=== PATIENT | male | born 1960 | race Two or more races ===

== ENCOUNTER 2024-03-11 15:33 | Inpatient (IN) | payer MEDICAID, OTHER ==
[~2024-03-11] VITALS: Ht 185.4 cm; Wt 99.2 kg
[~2024-03-11 15:33] MED LIST: TERB250T92 PO; URSO300C2 PO
[2024-03-11 16:56] LABS: Basophils # (auto) 0 10 ^3/uL (0-0.2); Basophils % (auto) 0.3 % (0.0-2.0); Eosinophils # (auto) 0 10 ^3/uL (0-0.8); Eosinophils % (auto) 0.5 % (0.0-7.0); Hematocrit 46.1 % (41.0-53.0); Hemoglobin 14.8 g/dL (13.5-17.5); Lymphocytes # (auto) 1.3 10 ^3/uL (0.4-5.4); Lymphocytes % (auto) 18.1 % (10.0-50.0); Mean Corpuscular Hemoglobin 25.9 pg (28.0-32.0); Mean Corpuscular Hgb Conc. 32.1 g/dL (32.0-36.0); Mean Corpuscular Volume 80.5 fL (80.0-100.0); Monocytes # (auto) 0.6 10 ^3/uL (0-1.3); Monocytes % (auto) 8.2 % (0.0-12.0); Neutrophils # (auto) 5.2 10 ^3/uL (1.6-8.6); Neutrophils % (auto) 72.9 % (37.0-80.0); Nucleated Red Blood Cells % 0.4 %; Platelet Count (auto) 181 10^3/uL (140-450); Red Blood Cells 5.72 10^6/uL (4.5-5.90); Red Cell Distribution Width 20.2 % (11.8-14.3); White Blood Cell 7.1 10^3/uL (4.4-10.8)
[2024-03-11 17:07] LABS: Chloride 101 mmol/L (98-107); Potassium 4.2 mmol/L (3.5-5.1); Sodium 136 mmol/L (136-145)
[2024-03-11 17:08] LABS: Anion Gap 7 (5-15); Carbon Dioxide 28 mmol/L (20-31)
[2024-03-11 17:09] LABS: Calcium 9.5 mg/dL (8.7-10.4)
[2024-03-11 17:13] LABS: BUN/Creatinine Ratio 28.3 (10.0-20.0); Blood Urea Nitrogen 32 mg/dL (9-23); Glucose 93 mg/dL (74-106)
[2024-03-11 19:43] VITALS: PULSE 104; RESP 22; O2SAT 93
[2024-03-11] MEDS: FUROSEMIDE 40 MG/4 ML VIAL IV ONE (20:31)
[2024-03-11] MEDS: PANTOPRAZOLE 40 MG/10 ML VIAL INJ IV SCH (21:40)
[2024-03-11] MEDS ORDERED: ONDANSETRON HCL 4 MG/2 ML VIAL IV PRN (22:00)
[2024-03-11] MEDS ORDERED: MORPHINE SULFATE INJ 2 MG/ml SYRG IV PRN (22:00)
[2024-03-11] MEDS ORDERED: DOCUSATE SOD 100 MG CAP PO PRN (22:00)
[2024-03-11] MEDS ORDERED: NITROGLYCERIN 0.4 MG SL TAB SL PRN (22:00)
[2024-03-11] MEDS ORDERED: HYDROmorphone HCL 2 MG/ML VL/or syr IV PRN (22:00)
[2024-03-11] MEDS ORDERED: HYDROcodone-ACET 5/325MG TAB PO PRN (22:00)
[2024-03-11] MEDS: SODIUM CHLOR 0.9% PF (SALINE LOCK) 10ML VIAL/SYR IV SCH (22:03)
[2024-03-11 22:43] LABS: Urine Bacteria FEW /hpf (None Seen); Urine Blood Negative /uL (Negative); Urine Clarity Turbid (Clear); Urine Color Yellow (Yellow); Urine Hyaline Cast MOD /lpf (0 - 2); Urine Protein, UAD Negative (Negative); Urine Specific Gravity 1.009 (1.001-1.035); Urine Urobilinogen 2 mg/dL (Negative); Urine WBC 6 /hpf (0 - 3)
[2024-03-11 23:56] VITALS: BP 130/77; PULSE 112; RESP 18; TEMP 97.9; O2SAT 97
[2024-03-12] VITALS (8 sets, daily range): BP systolic 98–126; BP diastolic 58–72; PULSE 76–114; RESP 18–19; TEMP 96.4–98.7; O2SAT 96–99
[2024-03-12] MEDS ORDERED: LOSA-534 PO (02:00)
[2024-03-12] MEDS ORDERED: FURO20TA3 PO (02:00)
[2024-03-12] MEDS ORDERED: TERB1CRE10 EX (02:00)
[2024-03-12] MEDS: FUROSEMIDE 40 MG/4 ML VIAL IV SCH (06:30)
[2024-03-12 07:25] LABS: Basophils # (auto) 0.1 10 ^3/uL (0-0.2); Basophils % (auto) 0.8 % (0.0-2.0); Eosinophils # (auto) 0.1 10 ^3/uL (0-0.8); Eosinophils % (auto) 1.5 % (0.0-7.0); Hematocrit 44.8 % (41.0-53.0); Hemoglobin 14.7 g/dL (13.5-17.5); Lymphocytes # (auto) 1.3 10 ^3/uL (0.4-5.4); Lymphocytes % (auto) 16.4 % (10.0-50.0); Mean Corpuscular Hemoglobin 26.6 pg (28.0-32.0); Mean Corpuscular Hgb Conc. 32.9 g/dL (32.0-36.0); Mean Corpuscular Volume 80.8 fL (80.0-100.0); Monocytes # (auto) 0.5 10 ^3/uL (0-1.3); Monocytes % (auto) 7.1 % (0.0-12.0); Neutrophils # (auto) 5.7 10 ^3/uL (1.6-8.6); Neutrophils % (auto) 74.2 % (37.0-80.0); Nucleated Red Blood Cells % 0.4 %; Platelet Count (auto) 223 10^3/uL (140-450); Red Blood Cells 5.55 10^6/uL (4.5-5.90); White Blood Cell 7.7 10^3/uL (4.4-10.8)
[2024-03-12 07:28] LABS: Red Cell Distribution Width 20.4 % (11.8-14.3)
[2024-03-12 08:18] LABS: INR 1.41 (0.9-1.15); Partial Thromboplastin Time 28.1 SEC (24.5-34.5); Prothrombin Time 14.6 sec (9.3-11.8)
[2024-03-12 08:52] LABS: Anion Gap 8 (5-15)
[2024-03-12 08:58] LABS: BUN/Creatinine Ratio 26.3 (10.0-20.0)
[2024-03-12 09:04] LABS: Blood Urea Nitrogen 30 mg/dL (9-23); Carbon Dioxide 28 mmol/L (20-31); Chloride 102 mmol/L (98-107); Glucose 98 mg/dL (74-106); Potassium 3.7 mmol/L (3.5-5.1); Sodium 138 mmol/L (136-145)
[2024-03-12 09:05] LABS: Alanine Aminotransferase 54 U/L (7-40); Albumin 3.2 g/dL (3.2-4.8); Alkaline Phosphatase 89 U/L (46-116); Aspartate Aminotransferase 47 U/L (13-40); Bilirubin, Total 4.1 mg/dL (0.2-1.0); Calcium 9.4 mg/dL (8.7-10.4); Total Protein 6.1 g/dL (5.7-8.2)
[2024-03-12 09:15] LABS: Magnesium 2.1 mg/dL (1.6-2.6)
[2024-03-12 09:16] LABS: Phosphorus 4.1 mg/dL (2.4-5.1)
[2024-03-12] MEDS: FUROSEMIDE INJECTION 100 MG in D5W 5% 100 ML IV SCH (09:45)
[2024-03-12] MEDS: POTASSIUM CHL 20 Meq TABLET PO SCH (10:22)
[2024-03-12] MEDS: DOBUTamine 1000MCG/ML 250 ML IV SCH (10:25)
[2024-03-12 13:12] LABS: Body Fluid Polymorphonuclear 10 % (0-25); Body Fluid Red Blood Cells 669 CUMM (0-2000); Body Fluid White Blood Cells 1034 CUMM (0-200)
[2024-03-12 15:42] LABS: Lactic Acid w/Reflex 2.7 mmol/L (0.4-2.0)
[2024-03-12] MEDS: NICOTINE 7MG/24HR TOPICAL PATCH TD ONE (17:35)
[2024-03-12] MEDS: SODIUM CHLORIDE 0.9% 1,000 ML IV SCH (20:34)
[2024-03-12] MEDS: SODIUM CHLORIDE 0.9% 500 ML IV ONE (22:12)
[2024-03-12 22:59] LABS: Lactic Acid w/Reflex 2.5 mmol/L (0.4-2.0)
[2024-03-13] VITALS (8 sets, daily range): BP systolic 91–118; BP diastolic 51–77; PULSE 73–109; RESP 18–70; TEMP 96.6–97.6; O2SAT 92–98
[2024-03-13 06:48] LABS: Alanine Aminotransferase 47 U/L (7-40); Alkaline Phosphatase 84 U/L (46-116); Anion Gap 8 (5-15); Aspartate Aminotransferase 40 U/L (13-40); BUN/Creatinine Ratio 24.2 (10.0-20.0); Bilirubin, Total 3.4 mg/dL (0.2-1.0); Blood Urea Nitrogen 23 mg/dL (9-23); Calcium 9.2 mg/dL (8.7-10.4); Carbon Dioxide 31 mmol/L (20-31); Chloride 98 mmol/L (98-107); Glucose 102 mg/dL (74-106); Magnesium 1.8 mg/dL (1.6-2.6); Phosphorus 2.7 mg/dL (2.4-5.1); Sodium 137 mmol/L (136-145); Total Protein 5.8 g/dL (5.7-8.2)
[2024-03-13 06:51] LABS: Lactic Acid w/Reflex 2.6 mmol/L (0.4-2.0)
[2024-03-13 07:00] LABS: Basophils # (auto) 0 10 ^3/uL (0-0.2); Eosinophils # (auto) 0.1 10 ^3/uL (0-0.8); Hematocrit 42.3 % (41.0-53.0); Monocytes # (auto) 0.4 10 ^3/uL (0-1.3)
[2024-03-13 07:03] LABS: Basophils % (auto) 0.1 % (0.0-2.0); Eosinophils % (auto) 1.1 % (0.0-7.0); Lymphocytes # (auto) 0.7 10 ^3/uL (0.4-5.4); Lymphocytes % (auto) 9.2 % (10.0-50.0); Mean Corpuscular Hemoglobin 26.4 pg (28.0-32.0); Monocytes % (auto) 5.2 % (0.0-12.0); Neutrophils # (auto) 6.8 10 ^3/uL (1.6-8.6); Neutrophils % (auto) 84.4 % (37.0-80.0); Nucleated Red Blood Cells % 0.1 %; Platelet Count (auto) 144 10^3/uL (140-450); Red Blood Cells 5.28 10^6/uL (4.5-5.90); Red Cell Distribution Width 20.3 % (11.8-14.3); White Blood Cell 8.1 10^3/uL (4.4-10.8)
[2024-03-13 09:24] LABS: Anisocytosis Slight; Platelet Estimate Adequate
[2024-03-13] MEDS: FUROSEMIDE INJECTION 100 MG in D5W 5% 100 ML IV SCH (09:29)
[2024-03-13] MEDS: NICOTINE 7MG/24HR TOPICAL PATCH TD SCH (09:30)
[2024-03-13] MEDS: POTASSIUM CHL 20MEQ/100ML 100 ML IV SCH (10:30)
[2024-03-13 13:07] LABS: Protein, Body Fluid 1.9 g/dL (.)
[2024-03-13] MEDS ORDERED: POTASSIUM CHL 20MEQ/100ML 100 ML IV SCH (13:45)
[2024-03-13 15:01] LABS: Lactic Acid w/Reflex 2.7 mmol/L (0.4-2.0)
[2024-03-13] MEDS: POTASSIUM CHLORIDE 80 MEQ, LIDOCAINE 1% (LOCAL ANESTH.) 6 ML in SODIUM CHL 0.9% 500 ML IV ONE (17:34)
[2024-03-14] VITALS (7 sets, daily range): BP systolic 110–133; BP diastolic 67–73; PULSE 104–135; RESP 15–20; TEMP 97.3–100.1; O2SAT 90–98
[2024-03-14 05:20] LABS: Basophils # (auto) 0 10 ^3/uL (0-0.2); Basophils % (auto) 0.4 % (0.0-2.0); Eosinophils # (auto) 0.1 10 ^3/uL (0-0.8); Eosinophils % (auto) 0.6 % (0.0-7.0); Hematocrit 43.9 % (41.0-53.0); Hemoglobin 14.7 g/dL (13.5-17.5); Lymphocytes # (auto) 0.9 10 ^3/uL (0.4-5.4); Lymphocytes % (auto) 10.4 % (10.0-50.0); Mean Corpuscular Hemoglobin 26.6 pg (28.0-32.0); Mean Corpuscular Hgb Conc. 33.4 g/dL (32.0-36.0); Mean Corpuscular Volume 79.7 fL (80.0-100.0); Monocytes # (auto) 0.6 10 ^3/uL (0-1.3); Monocytes % (auto) 6.4 % (0.0-12.0); Neutrophils # (auto) 7.2 10 ^3/uL (1.6-8.6); Neutrophils % (auto) 82.2 % (37.0-80.0); Nucleated Red Blood Cells % 0.2 %; Platelet Count (auto) 152 10^3/uL (140-450); Red Blood Cells 5.51 10^6/uL (4.5-5.90); Red Cell Distribution Width 19.8 % (11.8-14.3); White Blood Cell 8.7 10^3/uL (4.4-10.8)
[2024-03-14 05:34] LABS: Alanine Aminotransferase 49 U/L (7-40); Albumin 3.1 g/dL (3.2-4.8); Alkaline Phosphatase 87 U/L (46-116); Anion Gap 9 (5-15); Aspartate Aminotransferase 42 U/L (13-40); BUN/Creatinine Ratio 26.8 (10.0-20.0); Blood Urea Nitrogen 22 mg/dL (9-23); Calcium 9.1 mg/dL (8.7-10.4); Carbon Dioxide 32 mmol/L (20-31); Chloride 97 mmol/L (98-107); Glucose 105 mg/dL (74-106); Magnesium 1.5 mg/dL (1.6-2.6); Potassium 3.6 mmol/L (3.5-5.1); Sodium 138 mmol/L (136-145)
[2024-03-14 05:35] LABS: Bilirubin, Total 3.9 mg/dL (0.2-1.0); Phosphorus 2.4 mg/dL (2.4-5.1); Total Protein 5.8 g/dL (5.7-8.2)
[2024-03-14 12:42] LABS: Lactic Acid w/Reflex 2.2 mmol/L (0.4-2.0)
[2024-03-14] MEDS: METOPROLOL TARTRATE 1MG/1ML-5ML VIAL IV ONE ×2 (14:15→15:15)
[2024-03-14] MEDS: FUROSEMIDE 40 MG/4 ML VIAL IV SCH (15:14)
[2024-03-14] MEDS: METOPROLOL SUCCINATE XL 50 MG TAB PO ONE (15:14)
[2024-03-14 16:11] LABS: Basophils # (auto) 0 10 ^3/uL (0-0.2); Basophils % (auto) 0.3 % (0.0-2.0); Eosinophils # (auto) 0 10 ^3/uL (0-0.8); Eosinophils % (auto) 0.3 % (0.0-7.0); Hematocrit 49.8 % (41.0-53.0); Hemoglobin 16.3 g/dL (13.5-17.5); Lymphocytes # (auto) 0.4 10 ^3/uL (0.4-5.4); Lymphocytes % (auto) 3.8 % (10.0-50.0); Mean Corpuscular Hemoglobin 26.2 pg (28.0-32.0); Mean Corpuscular Hgb Conc. 32.6 g/dL (32.0-36.0); Mean Corpuscular Volume 80.3 fL (80.0-100.0); Monocytes # (auto) 0.4 10 ^3/uL (0-1.3); Neutrophils % (auto) 91.6 % (37.0-80.0); Nucleated Red Blood Cells % 0.1 %; Platelet Count (auto) 169 10^3/uL (140-450); Red Blood Cells 6.21 10^6/uL (4.5-5.90); White Blood Cell 10.9 10^3/uL (4.4-10.8)
[2024-03-14 16:12] LABS: Red Cell Distribution Width 21.1 % (11.8-14.3)
[2024-03-14] MEDS: cefTRIAXone 1GM/50ML D5W 50 ML IV ONE (16:12)
[2024-03-14] MEDS: AZITHROMYCIN 500MG/ 250ML 250 ML IV ONE (16:12)
[2024-03-14 16:21] LABS: Alanine Aminotransferase 48 U/L (7-40); Albumin 3.4 g/dL (3.2-4.8); Alkaline Phosphatase 91 U/L (46-116); Anion Gap 6 (5-15); Aspartate Aminotransferase 42 U/L (13-40); Bilirubin, Total 4.4 mg/dL (0.2-1.0); Blood Urea Nitrogen 18 mg/dL (9-23); Calcium 9.2 mg/dL (8.7-10.4); Carbon Dioxide 37 mmol/L (20-31); Chloride 94 mmol/L (98-107); Glucose 91 mg/dL (74-106); Magnesium 1.6 mg/dL (1.6-2.6); Phosphorus 2.6 mg/dL (2.4-5.1); Potassium 3.6 mmol/L (3.5-5.1); Sodium 137 mmol/L (136-145); Total Protein 6.6 g/dL (5.7-8.2)
[2024-03-14] MEDS: DIGOXIN (250MCG/ML) 2 ML AMPULE IV ONE (17:55)
[2024-03-14] MEDS: DIGOXIN 0.125 MG TAB PO ONE (17:55)
[2024-03-14] MEDS: FUROSEMIDE INJECTION 100 MG in D5W 5% 100 ML IV SCH (17:56)
[2024-03-14] MEDS: METOPROLOL TARTRATE 25 MG TAB PO ONE (20:20)
[2024-03-14] MEDS: ACETAMINOPHEN 325 MG TAB PO PRN (20:45)
[2024-03-14] MEDS ORDERED: VANCOMYCIN PER PHARMACY 0 MG IV SCH (21:45)
[2024-03-14] MEDS: MEROPENEM 1GM IVPB 50 ML IV SCH (22:24)
[2024-03-14] MEDS: VANCOMYCIN 1GM/200ML PREMIX IV ONE (23:32)
[2024-03-15] MEDS ORDERED: cefTRIAXone 1GM/50ML D5W 50 ML IV SCH (09:00)
[2024-03-15] MEDS ORDERED: METOPROLOL SUCCINATE XL 50 MG TAB PO SCH ×2 (10:00)
[2024-03-15] MEDS ORDERED: AZITHROMYCIN 500MG/ 250ML 250 ML IV SCH (10:00)
[2024-03-15] MEDS ORDERED: DIGOXIN 0.125 MG TAB PO SCH (10:00)
== END 2024-03-15 01:00 | disposition left against medical advice (07) | DRG 194 ==
LOC: ER 15:53 → TELE 21:50 → TELE-WESTW 23:34
PROVIDERS: ADMIT Internal Medicine; ATTEND Student in an Organized Health Care Education/Training Program
PROC: 0W993ZZ Drainage of Right Pleural Cavity, Percutaneous Approach (ICD-10-PCS; principal; 2024-03-12)
DX: I11.0 Hypertensive heart disease with heart failure (principal); J96.21 Acute and chronic respiratory failure with hypoxia; R57.0 Cardiogenic shock; I21.A1 Myocardial infarction type 2; E87.20 Acidosis, unspecified; I48.91 Unspecified atrial fibrillation; I50.23 Acute on chronic systolic (congestive) heart failure; Z53.29 Procedure and treatment not carried out because of patient's decision for other reasons; E66.9 Obesity, unspecified; G47.33 Obstructive sleep apnea (adult) (pediatric); F17.210 Nicotine dependence, cigarettes, uncomplicated; D72.829 Elevated white blood cell count, unspecified; R74.01 Elevation of levels of liver transaminase levels; I49.3 Ventricular premature depolarization; Z86.73 Personal history of transient ischemic attack (TIA), and cerebral infarction without residual deficits; Z68.28 Body mass index [BMI] 28.0-28.9, adult
CPT/HCPCS: 32555; 36415; 71045; 71046; 76604; 76942; 80048; 80053; 80061; 81001; 82306; 82607; 83036; 83605; 83735; 83880; 83986; 84100; 84443; 84484; 85025; 85610; 85730; 87040; 87077; 87186; 87205; 89051; 93306; 99291; G0378; J2003; J2185; J2470; J3480; J7060

== ENCOUNTER 2024-03-15 12:11 | Inpatient (IN) | payer MEDICAID ==
[~2024-03-15] VITALS: Ht 185.4 cm; Wt 90.0 kg
[~2024-03-15 12:11] MED LIST changes: +FURO20TA3 PO; +LOSA-534 PO; +TERB1CRE10 EX
[2024-03-15] MEDS ORDERED: FUROSEMIDE 100 MG/10ML VIAL IV ONE (12:45)
--- NOTE | 2024-03-15 13:13 | ED.PDOC ---
HPI Comments This is a 63-year-old male who comes to the ED with chief complain of generalized weakness, shortness of breath, and edema. 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 Patient was hospitalized here just a couple days ago with diagnosis of cardiogenic shock due to CHF exacerbation, AFib with RVR. Patient stated he only feels generalized weakness, shortness of breath on exertion, denies any chest pain, dizziness, lightheadedness, abdominal pain, nausea, vomiting. He stated that he has been experiencing edema of the legs up to the abdomen since the last three months. Chief Complaint: Generalized weakness Time Seen by MD: 12:19 Primary Care Provider: [facility] Reviewed Notes: Nurses Notes Allergies: Coded Allergies: NO KNOWN ALLERGIES (Unverified , 03/11/24) Home Meds Reported Medications Furosemide (Furosemide) 20 Mg Tab, 1 TAB PO DAILY, #90 TAB 1 Refill 03/12/24 Terbinafine Hcl (Topical) (Lamisil At Athletes Foot) 1 % Cre, 1 % EX, CRE 03/12/24 Losartan Potassium (Losartan Potassium) 50 Mg Tab, 1 TAB PO DAILY, #30 TAB 5 Refills 03/12/24 Information Source: Patient, Relative (Child) Mode of Arrival: Wheelchair Severity: Mild Timing: Days Duration: Since onset Past Medical History PAST MEDICAL HISTORY: AFIB, CHF, Gallstones, HTN, TIA Surgical History: Denies all surgeries Family History Family History: Reviewed,noncontributory to illness, Family hx of DM Social History Smoker: Cigarettes, Less Than 1 Pack/Day Alcohol: Denies ETOH Use Drugs: Denies Drug Use Lives In: Home Constitutional: denies: chills, diaphoresis, fatigue, fever, malaise, sweats, weakness, others EENTM: denies: blurred vision, double vision, ear bleeding, ear discharge, ear drainage, ear pain, ear ringing, eye pain, eye redness, hearing loss, mouth pain, mouth swelling, nasal discharge, nose bleeding, nose congestion, nose pain, photophobia, tearing, throat pain, throat swelling, voice changes, others Respiratory: reports: orthopnea, shortness of breath, SOB with excertion; denies: cough, hemoptysis, SOB at rest, stridor, wheezing, others Cardiovascular: reports: palpitations; denies: chest pain, dizzy spells, natalia phoresis, Dyspnea on exertion, edema, irregular heart beat, left arm pain, lightheadedness, PND, syncope, others Gastrointestinal: denies: abdomen distended, abdominal pain, blood streaked bowels, constipated, diarrhea, dysphagia, difficulty swallowing, hematemesis, melena, nausea, poor appetite, poor fluid intake, rectal bleeding, rectal pain, vomiting, others Genitourinary: denies: burning, dysuria, flank pain, frequency, hematuria, incontinence, penile discharge, penile sore, pain, testicle pain, testicle swelling, urgency, others Neurological: denies: dizziness, fainting, headache, left sided numbness, left sided weakness, numbness, paresthesia, pre-existing deficit, right sided numbness, right sided weakness, seizure, speech problems, tingling, tremors, weakness, others Musculoskeletal: denies: back pain, gout, joint pain, joint swelling, muscle pain, muscle stiffness, neck pain, others Integumetry: denies: bruises, change in color, change in hair/nails, dryness, laceration, lesions, lumps, rash, wounds, others Allergic/Immunocompromised: denies: Difficulty Healing, Frequent Infections, Hives, Itching, others Hematologic/Lymphatic: denies: anemia, blood clots, easy bleeding, easy bruising, swollen glands, others Endocrine: denies: excessive hunger, excessive sweating, excessive thirst, excessive urination, flushing, intolerance to cold, intolerance to heat, unexplained weight gain, unexplained weight loss, others Psychiatric: denies: anxiety, bipolar disorder, depression, hopeless, panic disorder, schizophrenia, sleepless, suicidal, others Physical Exam General Appearance: No Apparent Distress HEENT: Normal ENT Inspection, Pharynx Normal, TMs Normal Neck: Full Range of Motion, Non-Tender, Normal, Normal Inspection Respiratory: Chest Non-Tender, Crackles, Decreased Breath Sounds, No Accessory Muscle Use, No Respiratory Distress Cardiovascular: Irregular, JVD, No JVD, No Murmur, No Gallop, Normal Peripheral Pulses Breast Exam: Deferred Gastrointestinal: No Organomegaly, Non Tender, No Pulsatile Mass, Normal Bowel Sounds, Soft Genitalia: Deferred Pelvic: Deferred Rectal: Deferred Extremities: No calf tenderness, Normal capillary refill, Normal inspection, Normal range of motion, Non-tender, Pedal edema, Swelling Neurologic: Alert, Normal Affect, Normal Mood Cerebellar Function: NOT DONE Reflexes: NOT DONE Skin: Normal Color, Warm Lymphatic: None Was a procedure done? Was a procedure done?: No CP Differential Dx Differential Diagnosis: A-fib, Electrolyte Disorder, Heart Failure, Hypoxia Differential Diagnosis: CHF, HTN Essential, HTN Accelerated X-Ray, Labs, Meds, VS Vital Signs Date Time Temp Pulse Resp B/P (MAP) Pulse Ox O2 Delivery O2 Flow Rate FiO2 03/15/24 13:32 97.5 75 18 86/52 (63) 95 97.5 03/15/24 13:32 75 03/15/24 13:21 97.6 77 18 82/38 (53) 96 03/15/24 13:18 77 Lab Test 03/15/24 13:31 Range/Units White Blood Count 10.1 4.4-10.8 10^3/uL Red Blood Count 5.46 4.5-5.90 10^6/uL Hemoglobin 14.1 13.5-17.5 g/dL Hematocrit 43.9 # 41.0-53.0 % Mean Corpuscular Volume 80.5 80.0-100.0 fL Mean Corpuscular Hemoglobin 25.9 L 28.0-32.0 pg Mean Corpuscular Hemoglobin Concent 32.2 32.0-36.0 g/dL Red Cell Distribution Width 20.3 H 11.8-14.3 % Platelet Count 147 140-450 10^3/uL Mean Platelet Volume 9.8 6.9-10.8 fL Neutrophils (%) (Auto) 85.9 H 37.0-80.0 % Lymphocytes (%) (Auto) 7.7 L 10.0-50.0 % Monocytes (%) (Auto) 5.9 0.0-12.0 % Eosinophils (%) (Auto) 0.1 0.0-7.0 % Basophils (%) (Auto) 0.4 0.0-2.0 % Neutrophils # (Auto) 8.7 H 1.6-8.6 10 ^3/uL Lymphocytes # (Auto) 0.8 0.4-5.4 10 ^3/uL Monocytes # (Auto) 0.6 0-1.3 10 ^3/uL Eosinophils # (Auto) 0 0-0.8 10 ^3/uL Basophils # (Auto) 0 0-0.2 10 ^3/uL Nucleated Red Blood Cells 0.0 % Sodium Level 136 136-145 mmol/L Potassium Level 4.4 3.5-5.1 mmol/L Chloride Level 94 L 98-107 mmol/L Carbon Dioxide Level 33 H 20-31 mmol/L Anion Gap 9 5-15 Blood Urea Nitrogen 31 #H 9-23 mg/dL Creatinine 1.48 H 0.700-1.30 mg/dL Glomerular Filtration Rate Calc 53 >90 mL/min BUN/Creatinine Ratio 20.9 H 10.0-20.0 Serum Glucose 92 74-106 mg/dL Lactic Acid Level Pending Calcium Level 8.7 8.7-10.4 mg/dL Magnesium Level 1.6 1.6-2.6 mg/dL Total Bilirubin 4.2 H 0.2-1.0 mg/dL Aspartate Amino Transferase (AST) 49 H 13-40 U/L Alanine Aminotransferase (ALT) 44 H 7-40 U/L Alkaline Phosphatase 78 46-116 U/L Troponin I High Sensitivity Pending B-Type Natriuretic Peptide Pending Total Protein 5.5 L 5.7-8.2 g/dL Albumin 2.9 L 3.2-4.8 g/dL Patient was seen and examined, he currently states having generalized weakness and shortness of breath and exertion, he is on room air. No use of accessory muscles. Significant edema is seen on his legs up to the abdomen, upper arms. We will order CBC, CMP, magnesium, BNP, troponins, EKG, chest x-ray, UA, UDS. His BP was low, IV albumin was given. Blood cultures came back positive for Gram-positive clusters, placed on vancomycin, also placed on Rocephin. CMP shows RADHA. We will admit patient for further management Time of 1ST Reevaluation: 13:04 Reevaluation 1ST: Unchanged Patient Education/Counseling: Diagnosis, Treatment Family Education/Counseling: Diagnosis, Treatment Departure 1 Departure Time of Disposition: 14:23 Impression: Primary Impression: Acute on chronic diastolic heart failure Additional Impressions: RADHA (acute kidney injury) Afib Sepsis Bacteremia Disposition: ADMITTED INPATIENT Admit to: Tele Condition: Guarded Critical Care Note Critical Care Time?: No Stability Stability form required: No Heart Score Heart Score: Heart Score Response (Comments) Value History Moderate Suspicious 1 EKG N/A 0 Age 45-64 1 Risk Factors 1 or 2 risk factors 1 Troponin >3 x's Normal limit 2 Total 5 MEEK PUENTE RESIDENT Mar 15, 2024 13:12
--- NOTE | 2024-03-15 13:59 | DVH ---
CHEST RADIOGRAPH Indication:CHF, right pleural eff Technique: Single frontal view of the chest was obtained Comparison: XY CHEST PORTABLE on DOS: 03/14/24, XY CHEST PORTABLE on DOS: 03/12/24 FINDINGS: Lines and Tubes: None Lungs: Right basilar opacity. Diffuse bilateral interstitial prominence. Pleura: Right-sided effusion. No pneumothorax. Cardiomediastinal contours: Cardiomegaly Bones: No acute osseous abnormality. IMPRESSION: 1. Cardiomegaly with pulmonary vascular congestion. Small right pleural effusion. HS:Y
[2024-03-15 14:00] LABS: Basophils # (auto) 0 10 ^3/uL (0-0.2); Basophils % (auto) 0.4 % (0.0-2.0); Eosinophils # (auto) 0 10 ^3/uL (0-0.8); Eosinophils % (auto) 0.1 % (0.0-7.0); Hematocrit 43.9 % (41.0-53.0); Hemoglobin 14.1 g/dL (13.5-17.5); Lymphocytes # (auto) 0.8 10 ^3/uL (0.4-5.4); Lymphocytes % (auto) 7.7 % (10.0-50.0); Mean Corpuscular Hemoglobin 25.9 pg (28.0-32.0); Mean Corpuscular Hgb Conc. 32.2 g/dL (32.0-36.0); Mean Corpuscular Volume 80.5 fL (80.0-100.0); Monocytes # (auto) 0.6 10 ^3/uL (0-1.3); Monocytes % (auto) 5.9 % (0.0-12.0); Neutrophils # (auto) 8.7 10 ^3/uL (1.6-8.6); Neutrophils % (auto) 85.9 % (37.0-80.0); Platelet Count (auto) 147 10^3/uL (140-450); Red Blood Cells 5.46 10^6/uL (4.5-5.90); White Blood Cell 10.1 10^3/uL (4.4-10.8)
[2024-03-15 14:01] LABS: Red Cell Distribution Width 20.3 % (11.8-14.3)
[2024-03-15 14:13] LABS: Alanine Aminotransferase 44 U/L (7-40); Albumin 2.9 g/dL (3.2-4.8); Alkaline Phosphatase 78 U/L (46-116); Anion Gap 9 (5-15); Aspartate Aminotransferase 49 U/L (13-40); BUN/Creatinine Ratio 20.9 (10.0-20.0); Bilirubin, Total 4.2 mg/dL (0.2-1.0); Calcium 8.7 mg/dL (8.7-10.4); Carbon Dioxide 33 mmol/L (20-31); Chloride 94 mmol/L (98-107); Glucose 92 mg/dL (74-106); Magnesium 1.6 mg/dL (1.6-2.6); Potassium 4.4 mmol/L (3.5-5.1); Sodium 136 mmol/L (136-145); Total Protein 5.5 g/dL (5.7-8.2)
[2024-03-15 14:18] LABS: Blood Urea Nitrogen 31 mg/dL (9-23)
--- NOTE | 2024-03-15 14:24 | ECG ---
[facility] Test Date: 2024-03-15 Test Time: 13:18:17 Pat Name: JOMAR GOFF Department: ER Room: 0248T Gender: M [employer] Liaison: DR LOCKB: 1960 Requested By: MEEK VILLANUEVA Order Number: [id number] Reading MD: Dar Rodriguez Measurements Intervals [place] Rate: 77 P: 47 OH: 143 QRS: 129 QRSD: 114 T: 259 QT: 436 QTc: 494 Interpretive Statements Sinus rhythm Consider left atrial enlargement Borderline intraventricular conduction delay Abnormal T, consider ischemia, diffuse leads Baseline wander in lead(s) II,III,aVR,aVL,aVF Electronically Signed On 03-20-2024 7:54:59 PDT by Dar Rodriguez Please click the below link to view image of tracing.
[2024-03-15 14:30] LABS: Lactic Acid w/Reflex 2.6 mmol/L (0.4-2.0)
[2024-03-15] MEDS ORDERED: cefTRIAXone 1GM/50ML D5W 50 ML IV ONE (14:30)
[2024-03-15] MEDS ORDERED: VANCOMYCIN PER PHARMACY 0 MG IV SCH (14:30)
--- NOTE | 2024-03-15 15:13 | DVHHP2 ---
Admitting Diagnosis: Cardiogenic shock secondary to acute on chronic systolic heart failure History of Present Illness 63-year-old male previously AMA from the same admission, brought back in by his girlfriend. History of heart failure with reduced ejection fraction last echo 15%, smoker, hypertension, afib not on ac. On last admission patient admitted for acute chronic heart failure exacerbation, started on dobutamine drip for cardiogenic shock, started on Lasix drip. Patient had some improvement but was complicated by AFib with RVR, dobutamine discontinued, continued on Lasix drip, started on metoprolol as blood pressure holding up. Patient lives in a throughout the night, reported feeling really flushed and hot, patient pending and left take a cold shower. From chart review patient had a fever, chest x-ray show slight worsening on right-sided pneumonia, patient was started on vanc and desmond. In ED, patient is sitting on wheelchair, breathing comfortably, GVD to jaw, S1-S2 irregular, systolic murmur, abdomen soft, nontender, bilateral lower extremity edema all the way to the scrotum, chronic skin changes on bilateral foot. Total critical care time spent on this patient more than 30 minutes including evaluation, chart review, formulating plan and communication with team, excluding any procedures Allergies: Coded Allergies: NO KNOWN ALLERGIES (Unverified , 03/11/24) Home Meds Reported Medications Furosemide (Furosemide) 20 Mg Tab, 1 TAB PO DAILY, #90 TAB 1 Refill 03/12/24 Terbinafine Hcl (Topical) (Lamisil At Athletes Foot) 1 % Cre, 1 % EX, CRE 03/12/24 Losartan Potassium (Losartan Potassium) 50 Mg Tab, 1 TAB PO DAILY, #30 TAB 5 Refills 03/12/24 Current Medications Current Medications Medications (Trade) Dose Ordered Sig/Amy Route PRN Reason Start Time Stop Time Status Last Admin Vancomycin HCl 0 ml @ 0 mls/hr UD IV 03/15/24 14:30 UNV Vancomycin HCl 200 ml @ 200 mls/hr Q1H IV 03/15/24 14:30 03/15/24 16:29 Furosemide 100 mg/ Dextrose 110 ml @ 22 mls/hr Q5H IV 03/15/24 15:00 Metoprolol Succinate (Toprol Xl) 50 mg DAILY PO 03/16/24 10:00 Enoxaparin Sodium (Lovenox) 40 mg DAILY SC 03/16/24 10:00 Review of Systems Shortness of breath Lower extremity edema Scrotal swelling Palpitations Dizziness Vital Signs Vital Signs Date Time Temp Pulse Resp B/P (MAP) Pulse Ox O2 Delivery O2 Flow Rate FiO2 03/15/24 13:32 97.5 75 18 86/52 (63) 95 97.5 Physical Exam Alert, oriented x3 PERRLA JVD to jaw Decreased right-sided breath sounds, bilateral crackles S1-S2 irregular, systolic murmur Abdomen soft nontender, no hepatomegaly Equal strength bilaterally on upper and lower extremities Bilateral lower extremity edema to scrotum Scrotal swelling Results Labs Test 03/15/24 14:44 03/15/24 13:31 Range/Units White Blood Count 10.1 4.4-10.8 10^3/uL Red Blood Count 5.46 4.5-5.90 10^6/uL Hemoglobin 14.1 13.5-17.5 g/dL Hematocrit 43.9 # 41.0-53.0 % Mean Corpuscular Volume 80.5 80.0-100.0 fL Mean Corpuscular Hemoglobin 25.9 L 28.0-32.0 pg Mean Corpuscular Hemoglobin Concent 32.2 32.0-36.0 g/dL Red Cell Distribution Width 20.3 H 11.8-14.3 % Platelet Count 147 140-450 10^3/uL Mean Platelet Volume 9.8 6.9-10.8 fL Neutrophils (%) (Auto) 85.9 H 37.0-80.0 % Lymphocytes (%) (Auto) 7.7 L 10.0-50.0 % Monocytes (%) (Auto) 5.9 0.0-12.0 % Eosinophils (%) (Auto) 0.1 0.0-7.0 % Basophils (%) (Auto) 0.4 0.0-2.0 % Neutrophils # (Auto) 8.7 H 1.6-8.6 10 ^3/uL Lymphocytes # (Auto) 0.8 0.4-5.4 10 ^3/uL Monocytes # (Auto) 0.6 0-1.3 10 ^3/uL Eosinophils # (Auto) 0 0-0.8 10 ^3/uL Basophils # (Auto) 0 0-0.2 10 ^3/uL Nucleated Red Blood Cells 0.0 % Sodium Level 136 136-145 mmol/L Potassium Level 4.4 3.5-5.1 mmol/L Chloride Level 94 L 98-107 mmol/L Carbon Dioxide Level 33 H 20-31 mmol/L Anion Gap 9 5-15 Blood Urea Nitrogen 31 #H 9-23 mg/dL Creatinine 1.48 H 0.700-1.30 mg/dL Glomerular Filtration Rate Calc 53 >90 mL/min BUN/Creatinine Ratio 20.9 H 10.0-20.0 Serum Glucose 92 74-106 mg/dL Lactic Acid Level 2.6 *H 0.4-2.0 mmol/L Calcium Level 8.7 8.7-10.4 mg/dL Magnesium Level 1.6 1.6-2.6 mg/dL Total Bilirubin 4.2 H 0.2-1.0 mg/dL Aspartate Amino Transferase (AST) 49 H 13-40 U/L Alanine Aminotransferase (ALT) 44 H 7-40 U/L Alkaline Phosphatase 78 46-116 U/L Total Protein 5.5 L 5.7-8.2 g/dL Albumin 2.9 L 3.2-4.8 g/dL Admitting Diagnosis: Cardiogenic shock Acute on chronic systolic heart failure Acute on chronic hypoxic respiratory failure secondary to above Heart failure with reduced ejection fraction Lactic acidosis type 1 Troponin elevation secondary to type 2 AR Smoker Admit to telemetry Start Lasix to 20 milligram/hour Goal urine output -2 L in 1 day Insert Burk Strict I&O Start metoprolol succinate 25 mg q.d. Cancer dobutamine to augment cardiac function and diuresis Continue with digoxin 250 mcg daily Consult cardiology Dr. Conn Nicotine replacement therapy Trend troponin Trend lactic acid Avoid IV hydration, as patient is fluid overloaded Avoid IV antihypertensive agent Conservative pain management Start treatment dose Lovenox for AFib Diet heart healthy DVT prophylaxis on full-dose anticoagulation Plan discussed with: Patient Date of Service: Mar 15, 2024 Billing Provider: FARHAD FLORES MD Common Visit Codes: [id number] INP/OBS CARE (HIGH), [id number] CARE 30- 74 MIN FARHAD FLORES MD Mar 15, 2024 15:13
[2024-03-15] MEDS: METOPROLOL SUCCINATE XL 50 MG TAB PO ONE (15:15)
[2024-03-15 15:42] VITALS: PULSE 76; RESP 21; O2SAT 93
[2024-03-15] MEDS: ALBUMIN 25% 100 ML IV ONE (15:58)
[2024-03-15] MEDS: VANCOMYCIN 1GM/200ML PREMIX 200 ML IV SCH (15:59)
[2024-03-15] MEDS: DIGOXIN 0.125 MG TAB PO ONE (15:59)
[2024-03-15] MEDS ORDERED: ENOXAPARIN SOD 100 MG/1 ML SYRINGE SC SCH ×2 (16:00→22:00)
[2024-03-15] MEDS: FUROSEMIDE INJECTION 100 MG in D5W 5% 100 ML IV SCH (16:00)
[2024-03-15] MEDS: DOBUTamine 1000MCG/ML 250 ML IV SCH (16:00)
[2024-03-15] MEDS: ENOXAPARIN SOD 100 MG/1 ML SYRINGE SC SCH (16:00)
[2024-03-15] MEDS: PIPERACILLIN-TAZOB 3.375GM 100 ML IV ONE (16:54)
[2024-03-15 17:25] LABS: Lactic Acid w/Reflex 2.7 mmol/L (0.4-2.0)
[2024-03-15 19:30] VITALS: PULSE 77; RESP 11; O2SAT 97
[2024-03-15 22:08] LABS: Urine Bacteria None Seen /hpf (None Seen)
[2024-03-15 22:15] LABS: Urine Blood Negative /uL (Negative); Urine Clarity Turbid (Clear); Urine Color Yellow (Yellow); Urine Hyaline Cast FEW /lpf (0 - 2); Urine Mucus FEW (None Seen); Urine Protein, UAD TRACE (Negative); Urine Specific Gravity 1.016 (1.001-1.035); Urine Urobilinogen 2 mg/dL (Negative); Urine WBC 3 /hpf (0 - 3)
[2024-03-15 23:12] LABS: Amphetamine Screen, Urine Pos (NEGATIVE)
[2024-03-15 23:13] LABS: Barbiturate Scree,Urine Neg (NEGATIVE); Benzodiazephine Screen, Urine Neg (NEGATIVE); Cannabinoid Screen, Urine Neg (NEGATIVE); Cocaine Screen, Urine Neg (NEGATIVE); Opiate Scree,Urine Neg (NEGATIVE); Phencyclidine Screen, Urine Neg (NEGATIVE)
[2024-03-16] VITALS (47 sets, daily range): BP systolic 75–129; BP diastolic 42–73; PULSE 72–97; RESP 11–33; TEMP 97.4–97.9; O2SAT 90–98
[2024-03-16] MEDS: FUROSEMIDE INJECTION 10 ML ONE ×2 (01:43→05:42)
[2024-03-16] MEDS: VANCOMYCIN 1GM/200ML PREMIX 200 ML IV SCH (04:46)
[2024-03-16 06:10] LABS: Basophils # (auto) 0 10 ^3/uL (0-0.2); Basophils % (auto) 0.1 % (0.0-2.0); Eosinophils # (auto) 0.1 10 ^3/uL (0-0.8); Eosinophils % (auto) 0.9 % (0.0-7.0); Hemoglobin 12.7 g/dL (13.5-17.5); Neutrophils # (auto) 5.9 10 ^3/uL (1.6-8.6)
[2024-03-16 06:14] LABS: Lymphocytes % (auto) 13.3 % (10.0-50.0); Mean Corpuscular Hemoglobin 26.5 pg (28.0-32.0); Mean Corpuscular Hgb Conc. 33.3 g/dL (32.0-36.0); Mean Corpuscular Volume 79.4 fL (80.0-100.0); Monocytes # (auto) 0.6 10 ^3/uL (0-1.3); Monocytes % (auto) 8.3 % (0.0-12.0); Neutrophils % (auto) 77.4 % (37.0-80.0); Nucleated Red Blood Cells % 0.3 %; Platelet Count (auto) 125 10^3/uL (140-450); Red Blood Cells 4.79 10^6/uL (4.5-5.90); White Blood Cell 7.7 10^3/uL (4.4-10.8)
[2024-03-16 06:25] LABS: Red Cell Distribution Width 20.5 % (11.8-14.3)
[2024-03-16 06:28] LABS: Alanine Aminotransferase 29 U/L (7-40); Alkaline Phosphatase 56 U/L (46-116); Anion Gap 6 (5-15); BUN/Creatinine Ratio 23.1 (10.0-20.0); Blood Urea Nitrogen 27 mg/dL (9-23); Calcium 8.5 mg/dL (8.7-10.4); Carbon Dioxide 33 mmol/L (20-31); Chloride 97 mmol/L (98-107); Glucose 103 mg/dL (74-106); Magnesium 1.7 mg/dL (1.6-2.6); Potassium 3.2 mmol/L (3.5-5.1); Sodium 136 mmol/L (136-145)
[2024-03-16 06:29] LABS: Albumin 2.7 g/dL (3.2-4.8); Aspartate Aminotransferase 32 U/L (13-40); Bilirubin, Total 3.2 mg/dL (0.2-1.0); Phosphorus 3.5 mg/dL (2.4-5.1); Total Protein 4.8 g/dL (5.7-8.2)
[2024-03-16] MEDS: POTASSIUM CHL 20MEQ/100ML 100 ML IV SCH (09:33)
[2024-03-16] MEDS: POTASSIUM EFFERVESENT TAB 25 MEQ PO SCH (09:34)
[2024-03-16] MEDS ORDERED: ENOXAPARIN SOD 40 MG/0.4 ML SYRINGE SC SCH (10:00)
[2024-03-16] MEDS ORDERED: METOPROLOL SUCCINATE XL 50 MG TAB PO SCH (10:00)
--- NOTE | 2024-03-16 13:07 | DVHPN2 ---
Objective Vitals Vital Signs Date Time Temp Pulse Resp B/P (MAP) Pulse Ox O2 Delivery O2 Flow Rate FiO2 03/16/24 12:00 82 03/16/24 12:00 16 90 Nasal Cannula* 2 28 03/16/24 11:00 99/57 (71) 03/16/24 08:00 97.8 97.8 Intake/Output Intake and Output 03/16/24 07:00 Intake Total 902.08 ml Output Total 700 ml Balance 202.08 ml IV Total 902.08 ml Output Urine Total 700 ml Medications Current Medications Medications Dose Ordered Sig/Amy Route Start Time Stop Time Status Last Admin Dose Admin Vancomycin HCl 0 ml @ 0 mls/hr UD IV 03/15/24 14:30 Furosemide 100 mg/ Dextrose 110 ml @ 22 mls/hr Q5H IV 03/15/24 15:00 03/16/24 09:51 22 MLS/HR Enoxaparin Sodium 100 mg Q12H SC 03/15/24 16:00 03/16/24 04:46 100 MG Dobutamine HCl/ Dextrose 250 ml @ 14.88 mls/ hr [id number] IV 03/15/24 16:00 03/15/24 16:00 14.88 MLS/HR Vancomycin HCl 200 ml @ 200 mls/hr Q12H IV 03/16/24 04:00 03/16/24 04:46 200 MLS/HR Potassium Bicarbonate 50 meq DAILY PO 03/16/24 10:00 03/16/24 09:34 50 MEQ Laboratory Results Laboratory Tests 03/16/24 05:10 Chemistry Test 03/15/24 13:31 03/16/24 05:10 Albumin 2.9 g/dL (3.2-4.8) L 2.7 g/dL (3.2-4.8) L Calcium Level 8.7 mg/dL (8.7-10.4) 8.5 mg/dL (8.7-10.4) L Magnesium Level 1.6 mg/dL (1.6-2.6) 1.7 mg/dL (1.6-2.6) Total Protein 5.5 g/dL (5.7-8.2) L 4.8 g/dL (5.7-8.2) L Phosphorus Level 3.5 mg/dL (2.4-5.1) Cardiac Markers Test 03/15/24 13:31 B-Type Natriuretic Peptide > 5000.00 pg/mL (0-100) LFT Test 03/15/24 13:31 03/16/24 05:10 Alanine Aminotransferase (ALT) 44 U/L (7-40) H 29 U/L (7-40) Alkaline Phosphatase 78 U/L (46-116) 56 U/L (46-116) Aspartate Amino Transferase (AST) 49 U/L (13-40) H 32 U/L (13-40) Total Bilirubin 4.2 mg/dL (0.2-1.0) H 3.2 mg/dL (0.2-1.0) H Urinalysis Test 03/15/24 22:05 Urine Color Yellow (Yellow) Urine Clarity Turbid (Clear) H Urine pH 5.0 (5.0-9.0) Urine Specific [place] 1.016 (1.001-1.035) Urine Protein Trace (Negative) H Urine Ketones Negative (Negative) Urine Blood Negative /uL (Negative) Urine Nitrite Negative (Negative) Urine Bilirubin Negative (Negative) Urine Urobilinogen 2 mg/dL (Negative) H Urine Leukocyte Esterase Negative /uL (Negative) Urine RBC 3 /hpf (0 - 3) Urine WBC 3 /hpf (0 - 3) Urine Squamous Epithelial Cells None seen /hpf (<5) Urine Bacteria None seen /hpf (None Seen) Urine Hyaline Casts Few /lpf (0 - 2) Urine Mucus Few (None Seen) Urine Glucose Normal mg/dL (Normal) Blood Gas Results Test 03/16/24 09:20 Arterial Blood pH 7.513 (7.350-7.450) FiO2 % 28.0 Microbiology Microbiology Date/Time Source Procedure Growth Status 03/15/24 13:31 Blood Blood Culture - Preliminary Resulted AMAURY HAGEN MD Mar 16, 2024 13:06
--- NOTE | 2024-03-16 16:38 | DVHPN2 ---
Subjective 63-year-old male previously AMA from the same admission, brought back in by his girlfriend. History of heart failure with reduced ejection fraction last echo 15%, smoker, hypertension, afib not on ac. On last admission patient admitted for acute chronic heart failure exacerbation, started on dobutamine drip for cardiogenic shock, started on Lasix drip. Patient had some improvement but was complicated by AFib with RVR, dobutamine discontinued, continued on Lasix drip, started on metoprolol as blood pressure holding up. Patient lives in a throughout the night, reported feeling really flushed and hot, patient pending and left take a cold shower. From chart review patient had a fever, chest x-ray show slight worsening on right-sided pneumonia, patient was started on vanc and desmond. In ED, patient is sitting on wheelchair, breathing comfortably, GVD to jaw, S1-S2 irregular, systolic murmur, abdomen soft, nontender, bilateral lower extremity edema all the way to the scrotum, chronic skin changes on bilateral foot. Patient is seen today during rounds Breathing comfortably with 2 L. Patient had 12 runs of NSVT overnight. Frequent PVCs, map acceptable, decision made to discontinue dobutamine and continue with Lasix drip. Potassium repleted. Continue with oxygen supplementation. ABG repeated Total critical care time spent on this patient more than 30 minutes including evaluation, chart review, formulating plan and communication with team, excluding any procedures Reviewed: Care Plan, H&P, Labs, Medications, Previous Orders, Radiology Changes from previous H/P or p: No Changes Objective Vitals Vital Signs Date Time Temp Pulse Resp B/P (MAP) Pulse Ox O2 Delivery O2 Flow Rate FiO2 03/16/24 16:00 16 97 Nasal Cannula* 2 28 03/16/24 16:00 97.8 92 117/55 (75) 97.8 Intake/Output Intake and Output 03/16/24 07:00 Intake Total 902.08 ml Output Total 700 ml Balance 202.08 ml IV Total 902.08 ml Output Urine Total 700 ml Exam Alert, oriented x3 PERRLA JVD to jaw Decreased right-sided breath sounds, bilateral crackles S1-S2 irregular, systolic murmur Abdomen soft nontender, no hepatomegaly Equal strength bilaterally on upper and lower extremities Bilateral lower extremity edema to scrotum Scrotal swelling Medications Current Medications Medications Dose Ordered Sig/Amy Route Start Time Stop Time Status Last Admin Dose Admin Vancomycin HCl 0 ml @ 0 mls/hr UD IV 03/15/24 14:30 Furosemide 100 mg/ Dextrose 110 ml @ 22 mls/hr Q5H IV 03/15/24 15:00 03/16/24 09:51 22 MLS/HR Enoxaparin Sodium 100 mg Q12H SC 03/15/24 16:00 03/16/24 16:03 100 MG Dobutamine HCl/ Dextrose 250 ml @ 14.88 mls/ hr [id number] IV 03/15/24 16:00 03/15/24 16:00 14.88 MLS/HR Vancomycin HCl 200 ml @ 200 mls/hr Q12H IV 03/16/24 04:00 03/16/24 16:03 200 MLS/HR Potassium Bicarbonate 50 meq DAILY PO 03/16/24 10:00 03/16/24 09:34 50 MEQ Laboratory Results Laboratory Tests 03/16/24 05:10 Chemistry Test 03/16/24 05:10 Albumin 2.7 g/dL (3.2-4.8) L Calcium Level 8.5 mg/dL (8.7-10.4) L Magnesium Level 1.7 mg/dL (1.6-2.6) Phosphorus Level 3.5 mg/dL (2.4-5.1) Total Protein 4.8 g/dL (5.7-8.2) L LFT Test 03/16/24 05:10 Alanine Aminotransferase (ALT) 29 U/L (7-40) Alkaline Phosphatase 56 U/L (46-116) Aspartate Amino Transferase (AST) 32 U/L (13-40) Total Bilirubin 3.2 mg/dL (0.2-1.0) H Urinalysis Test 03/15/24 22:05 Urine Color Yellow (Yellow) Urine Clarity Turbid (Clear) H Urine pH 5.0 (5.0-9.0) Urine Specific [place] 1.016 (1.001-1.035) Urine Protein Trace (Negative) H Urine Ketones Negative (Negative) Urine Blood Negative /uL (Negative) Urine Nitrite Negative (Negative) Urine Bilirubin Negative (Negative) Urine Urobilinogen 2 mg/dL (Negative) H Urine Leukocyte Esterase Negative /uL (Negative) Urine RBC 3 /hpf (0 - 3) Urine WBC 3 /hpf (0 - 3) Urine Squamous Epithelial Cells None seen /hpf (<5) Urine Bacteria None seen /hpf (None Seen) Urine Hyaline Casts Few /lpf (0 - 2) Urine Mucus Few (None Seen) Urine Glucose Normal mg/dL (Normal) Blood Gas Results Test 03/16/24 09:20 Arterial Blood pH 7.513 (7.350-7.450) FiO2 % 28.0 Microbiology Microbiology Date/Time Source Procedure Growth Status 03/15/24 13:31 Blood Blood Culture - Preliminary Resulted Labs and/or images reviewed: Labs reviewed by me, Image(s) reviewed by me Assessment/Plan Assessment/Plan Cardiogenic shock Can not ruled out mixed shock Acute on chronic systolic heart failure Acute on chronic hypoxic respiratory failure secondary to above Aspiration pneumonia, likely Gram-negative Heart failure with reduced ejection fraction Lactic acidosis type 1 Troponin elevation secondary to type 2 [place] Smoker Nonsustained V-tach Continue care in [place] Continue with vanc and Zosyn Continue with Lasix to 20 milligram/hour Goal urine output -2 L in 1 day Insert Burk Strict I&O stop Dobutamine Continue with metoprolol succinate 25 mg q.d. Continue with digoxin 250 mcg daily Consult cardiology Dr. Conn Nicotine replacement therapy Trend troponin Trend lactic acid Avoid IV hydration, as patient is fluid overloaded Avoid IV antihypertensive agent Conservative pain management Start treatment dose Lovenox for AFib Diet heart healthy DVT prophylaxis on full-dose anticoagulant Condition critical prognosis poor Code status full code Plan discussed with: Patient My Orders Orders - FARHAD FLORES MD Procedure Category Date Status Time Abg W/ Co-Ox RT 03/16/24 Logged 07:53 Regular Diet DIET 03/16/24 Transmitted Breakfast Complete Blood Count LAB 03/17/24 Verified 04:00 Comprehensive LAB 03/17/24 Verified Metabolic Panel 04:00 Magnesium LAB 03/17/24 Verified 04:00 Phosphorus LAB 03/17/24 Verified 04:00 Potassium Effervesent PHA 03/16/24 In Process Tab (Klor-Con/Ef) 10:00 Date of Service: Mar 16, 2024 Billing Provider: FARHAD FLORES MD Common Visit Codes: [id number] INP/OBS CARE(HIGH), [id number] CARE 30-74 MIN FARHAD FLORES MD Mar 16, 2024 16:37
[2024-03-16] MEDS: MAGNESIUM SULFATE 1GM/100ML 100 ML IV SCH (21:37)
--- NOTE | 2024-03-16 22:42 | DVHINCON2 ---
Date of service: Mar 16, [address] Nicholas Diaz Reason for Consultation Right pleural effusion Acute hypoxic respiratory failure History of Present Illness A 63-year-old male with PMHx of heart failure with reduced ejection fraction last echo, 15%, smoker, hypertension, AFib not on anticoagulation, who was previously AMA from the same admission, brought back in by his girlfriend. On last admission patient was admitted for acute on chronic CHF exacerbation, started on dobutamine drip for cardiogenic shock, started on Lasix drip. He had some improvement but was complicated by AFib with RVR, dobutamine discontinued, continued on Lasix drip, started on metoprolol as BP holding up. Patient reported feeling really flushed and hot, left to take a cold shower. From chart review patient had a fever; chest x-ray showed slight worsening of right-sided pneumonia. Pulmonary consultation was requested for evaluation d/t the above findings. Review of Systems: 14-point review of systems negative unless otherwise noted above. Past Medical History: Heart failure with reduced ejection fraction last echo, 15%, smoker, hypertension, AFib not on anticoagulation. Past Surgical History: None. Medications: Reviewed. Allergies: No known drug allergies. Family History: No family history of premature CAD. No family history of lung disorders. Social History: Nonsmoker. No alcohol or illicit drug use. Family History: Patient reports no known family medical history. Allergies: Coded Allergies: NO KNOWN ALLERGIES (Unverified , 03/11/24) Home Meds Reported Medications Furosemide (Furosemide) 20 Mg Tab, 1 TAB PO DAILY, #90 TAB 1 Refill 03/12/24 Terbinafine Hcl (Topical) (Lamisil At [employer]) 1 % Cre, 1 % EX, CRE 03/12/24 Losartan Potassium (Losartan Potassium) 50 Mg Tab, 1 TAB PO DAILY, #30 TAB 5 Refills 03/12/24 Current Medications Current Medications Medications (Trade) Dose Ordered Sig/Amy Route PRN Reason Start Time Stop Time Status Last Admin Metoprolol Succinate (Toprol Xl) 50 mg DAILY PO 03/16/24 10:00 03/15/24 15:16 DC Enoxaparin Sodium (Lovenox) 40 mg DAILY SC 03/16/24 10:00 03/15/24 15:16 DC Vancomycin HCl 200 ml @ 200 mls/hr Q12H IV 10/26/24 04:00 03/16/24 16:03 Potassium Chloride 100 ml @ 50 mls/hr Q2H IV 03/16/24 08:00 03/16/24 11:59 DC 03/16/24 12:33 Potassium Bicarbonate (Klor-Con/Ef) 50 meq DAILY PO 03/16/24 10:00 03/16/24 09:34 Magnesium Sulfate/ Dextrose 100 ml @ 100 mls/hr Q1HR IV 03/16/24 21:00 03/16/24 22:59 03/16/24 21:37 Vital Signs Vital Signs Date Time Temp Pulse Resp B/P (MAP) Pulse Ox O2 Delivery O2 Flow Rate FiO2 03/16/24 21:36 120/59 03/16/24 20:00 88 20 93 Nasal Cannula* 2 28 03/16/24 16:00 97.8 97.8 Physical Exam Gen.: Patient lying in bed in no apparent distress. On supplemental oxygen. Head: Normocephalic, atraumatic. Eyes: EOMI/PERRLA. Ears: Normal hearing. Normal anatomy. Neck/trachea: Trachea midline, supple. Nose: Normal external anatomy. Mouth: Moist mucous membranes. Chest: Decreased air entry bilaterally. No wheezing or rhonchi. Cardiovascular: Positive S1, positive S2. Regular rate and rhythm. Abdomen: Positive bowel sounds in all 4 quadrants. Soft, non-tender, non- distended. : Deferred. Rectal: Deferred. Skin: Warm, dry. Intact. Extremities: 2+ radial pulses bilaterally. No lower extremity edema. Neuro: Awake, alert, oriented x3. No gross motor or sensory deficits. Cranial nerves II through XII intact. Gait not assessed. Labs/Diagnostic Data Labs Test 03/16/24 13:07 03/16/24 13:04 03/16/24 09:20 03/16/24 05:10 Range/Units Lactic Acid Level 2.0 0.4-2.0 mmol/L Troponin I High Sensitivity 978 *H </=54 ng/L Blood Gas Specimen Type Arterial Blood Gas Sample Site Right radial Blood Gas Patient Temperature 37.0 Arterial Blood Date Drawn [id number] Arterial Blood pH 7.513 H 7.350-7.450 Arterial Blood Partial Pressure CO2 40.3 35.0-48.0 mmHg Arterial Blood Partial Pressure O2 65.2 L 83.0-108.0 mmHg Arterial Blood HCO3 31.7 H 21.0-28.0 mmol/L Arterial Blood Oxygen Saturation 92.3 L 94.0-98.0 % Arterial Blood Base Excess 8.0 H -2.0-3.0 mmol/L Arterial Blood Oxyhemoglobin 90.3 L 94.0-98.0 % Arterial Blood Carboxyhemoglobin 1.7 H 0.5-1.5 % Arterial Blood Methemoglobin 0.5 0.0-1.5 % Mark Test Yes Blood Gas Total Hemoglobin 13.70 13.5-17.5 g/dL Blood Gas Liter Flow 2.00 Blood Gas Modality Nasal cannula FiO2 % 28.0 White Blood Count 7.7 4.4-10.8 10^3/uL Red Blood Count 4.79 4.5-5.90 10^6/uL Hemoglobin 12.7 L 13.5-17.5 g/dL Hematocrit 38.0 #L 41.0-53.0 % Mean Corpuscular Volume 79.4 L 80.0-100.0 fL Mean Corpuscular Hemoglobin 26.5 L 28.0-32.0 pg Mean Corpuscular Hemoglobin Concent 33.3 32.0-36.0 g/dL Red Cell Distribution Width 20.5 H 11.8-14.3 % Platelet Count 125 L 140-450 10^3/uL Mean Platelet Volume 9.9 6.9-10.8 fL Neutrophils (%) (Auto) 77.4 37.0-80.0 % Lymphocytes (%) (Auto) 13.3 10.0-50.0 % Monocytes (%) (Auto) 8.3 0.0-12.0 % Eosinophils (%) (Auto) 0.9 0.0-7.0 % Basophils (%) (Auto) 0.1 0.0-2.0 % Neutrophils # (Auto) 5.9 1.6-8.6 10 ^3/uL Lymphocytes # (Auto) 1.0 0.4-5.4 10 ^3/uL Monocytes # (Auto) 0.6 0-1.3 10 ^3/uL Eosinophils # (Auto) 0.1 0-0.8 10 ^3/uL Basophils # (Auto) 0 0-0.2 10 ^3/uL Nucleated Red Blood Cells 0.3 % Sodium Level 136 136-145 mmol/L Potassium Level 3.2 L 3.5-5.1 mmol/L Chloride Level 97 L 98-107 mmol/L Carbon Dioxide Level 33 H 20-31 mmol/L Anion Gap 6 5-15 Blood Urea Nitrogen 27 H 9-23 mg/dL Creatinine 1.17 0.700-1.30 mg/dL Glomerular Filtration Rate Calc 70 >90 mL/min BUN/Creatinine Ratio 23.1 H 10.0-20.0 Serum Glucose 103 74-106 mg/dL Calcium Level 8.5 L 8.7-10.4 mg/dL Phosphorus Level 3.5 2.4-5.1 mg/dL Magnesium Level 1.7 1.6-2.6 mg/dL Total Bilirubin 3.2 H 0.2-1.0 mg/dL Aspartate Amino Transferase (AST) 32 13-40 U/L Alanine Aminotransferase (ALT) 29 7-40 U/L Alkaline Phosphatase 56 46-116 U/L Total Protein 4.8 L 5.7-8.2 g/dL Albumin 2.7 L 3.2-4.8 g/dL Test 03/15/24 22:05 03/15/24 13:31 Range/Units Urine Color Yellow Yellow Urine Clarity Turbid H Clear Urine pH 5.0 5.0-9.0 Urine Specific [place] 1.016 1.001-1.035 Urine Protein Trace H Negative Urine Ketones Negative Negative Urine Blood Negative Negative /uL Urine Nitrite Negative Negative Urine Bilirubin Negative Negative Urine Urobilinogen 2 H Negative mg/dL Urine Leukocyte Esterase Negative Negative /uL Urine RBC 3 0 - 3 /hpf Urine WBC 3 0 - 3 /hpf Urine Squamous Epithelial Cells None seen <5 /hpf Urine Bacteria None seen None Seen /hpf Urine Hyaline Casts Few 0 - 2 /lpf Urine Mucus Few None Seen Urine Glucose Normal Normal mg/dL Urine Opiates Screen Neg NEGATIVE Urine Fentanyl Screen Neg NEGATIVE Urine Barbiturates Screen Neg NEGATIVE Urine Phencyclidine Screen Neg NEGATIVE Urine Amphetamines Screen Pos NEGATIVE Urine Benzodiazepines Screen Neg NEGATIVE Urine Cocaine Screen Neg NEGATIVE Urine Cannabinoids Screen Neg NEGATIVE B-Type Natriuretic Peptide > 5000.00 0-100 pg/mL Microbiology Date/Time Source Procedure Growth Status 03/15/24 13:31 Blood Blood Culture - Preliminary Resulted Assessment Impression: Right pleural effusion Acute hypoxic respiratory failure Atelectasis Hypokalemia Hypomagnesemia Plan: Supplemental oxygen, 1 LPM NC Titrate to keep O2 sats above 92%. Taper O2 as tolerated. Will obtain limited chest U/S to assess if pleural effusion amenable for thora. Obtain CXR in the AM. Continue antibiotics Incentive spirometry Monitor renal function. Monitor electrolytes. Supplement as necessary. Monitor ins and outs. K, mag supplementation DVT prophylaxis. Prognosis: Guarded given patient's multiple co-morbidities. Rest of plan per hospitalist and other consultants. Thank you Dr. Nicholas Diaz for allowing me to participate in this patient's care. Further recommendations will depend on the patient's clinical course. Please do not hesitate to contact me if you have any questions or concerns. This medical document was created using an electronic medical record system with [employer] dictation system. Although these documentations are being ca refully reviewed, there may still be some phonetic and typographical changes. The errors are purely typographical, due to imperfection on the software program, and do not reflect any compromise in the patient's medical care. Plan discussed with: Patient, Other (RN Ty, ) BOGDAN MANN MD Mar 16, 2024 22:42
[2024-03-17] VITALS (14 sets, daily range): BP systolic 98–146; BP diastolic 52–75; PULSE 73–94; RESP 13–26; TEMP 97.2–98.1; O2SAT 92–98
[2024-03-17 02:45] LABS: Basophils # (auto) 0 10 ^3/uL (0-0.2); Eosinophils # (auto) 0.2 10 ^3/uL (0-0.8); Hemoglobin 13.3 g/dL (13.5-17.5); Lymphocytes # (auto) 1.1 10 ^3/uL (0.4-5.4); Monocytes # (auto) 0.7 10 ^3/uL (0-1.3); Neutrophils # (auto) 5.6 10 ^3/uL (1.6-8.6); White Blood Cell 7.7 10^3/uL (4.4-10.8)
[2024-03-17 02:47] LABS: Basophils % (auto) 0.2 % (0.0-2.0); Hematocrit 40.7 % (41.0-53.0); Lymphocytes % (auto) 14.5 % (10.0-50.0); Mean Corpuscular Hemoglobin 26.1 pg (28.0-32.0); Mean Corpuscular Hgb Conc. 32.7 g/dL (32.0-36.0); Mean Corpuscular Volume 79.9 fL (80.0-100.0); Monocytes % (auto) 9.7 % (0.0-12.0); Neutrophils % (auto) 72.6 % (37.0-80.0); Nucleated Red Blood Cells % 0.3 %; Platelet Count (auto) 141 10^3/uL (140-450); Red Blood Cells 5.09 10^6/uL (4.5-5.90)
[2024-03-17 03:00] LABS: Alanine Aminotransferase 33 U/L (7-40); Albumin 2.8 g/dL (3.2-4.8); Alkaline Phosphatase 63 U/L (46-116); Anion Gap 3 (5-15); Aspartate Aminotransferase 41 U/L (13-40); BUN/Creatinine Ratio 28.4 (10.0-20.0); Blood Urea Nitrogen 25 mg/dL (9-23); Calcium 8.2 mg/dL (8.7-10.4); Carbon Dioxide 36 mmol/L (20-31); Chloride 95 mmol/L (98-107); Glucose 104 mg/dL (74-106); Magnesium 1.8 mg/dL (1.6-2.6); Potassium 3.3 mmol/L (3.5-5.1); Sodium 134 mmol/L (136-145)
[2024-03-17 03:01] LABS: Bilirubin, Total 2.9 mg/dL (0.2-1.0); Phosphorus 2.5 mg/dL (2.4-5.1); Total Protein 4.9 g/dL (5.7-8.2)
[2024-03-17] MEDS: MAGNESIUM SULFATE 1GM/100ML 100 ML IV ONE (06:25)
[2024-03-17] MEDS: POTASSIUM CHL 20MEQ/100ML 100 ML IV SCH ×2 (06:25→10:00)
--- NOTE | 2024-03-17 06:39 | DVH ---
CHEST RADIOGRAPH Indication:pleural efusion; CHF Technique: Single frontal view of the chest was obtained Comparison: XY CHEST XRAY 1 VIEW on DOS: 03/15/24, XY CHEST PORTABLE on DOS: 03/14/24, XY CHEST SANJEEV BLE on DOS: 03/12/24 IMPRESSION: There is cardiomegaly with moderate to large right pleural effusion and [id number] left pleura l effusion. Interstitial and alveolar airspace opacities have increased with a degree of pulmonary e antonio. There is no pneumothorax. HS:Y
[2024-03-17] MEDS: MAGNESIUM SULFATE 1GM/100ML 100 ML IV SCH (09:15)
[2024-03-17] MEDS: METOPROLOL SUCCINATE XL 50 MG TAB PO SCH (09:22)
--- NOTE | 2024-03-17 11:17 | DVH ---
US LT Lower DVT HISTORY: r/o DVT COMPARISON: None TECHNIQUE: Duplex Doppler evaluation of the deep venous system of the lower extremity from the common femoral veins, superficial femoral vein, great saphenous vein, deep femoral vein, popliteal vein, an d calf veins, including color Doppler and spectral/pulsed waveform analysis, was performed. FINDINGS: Left: - Common femoral vein: Compressible - Deep femoral vein: Compressible - Femoral vein: Compressible - Popliteal vein: Compressible - Posterior tibial vein: Waveforms present - Peroneal vein: Not seen. - Other: Nothing IMPRESSION: No left lower extremity deep venous thrombosis.
[2024-03-17] MEDS: FUROSEMIDE 40 MG/4 ML VIAL IV SCH (12:00)
--- NOTE | 2024-03-17 18:50 | DVHPN2 ---
Subjective 63-year-old male previously AMA from the same admission, brought back in by his girlfriend. History of heart failure with reduced ejection fraction last echo 15%, smoker, hypertension, afib not on ac. On last admission patient admitted for acute chronic heart failure exacerbation, started on dobutamine drip for cardiogenic shock, started on Lasix drip. Patient had some improvement but was complicated by AFib with RVR, dobutamine discontinued, continued on Lasix drip, started on metoprolol as blood pressure holding up. Patient lives in a throughout the night, reported feeling really flushed and hot, patient pending and left take a cold shower. From chart review patient had a fever, chest x-ray show slight worsening on right-sided pneumonia, patient was started on vanc and desmond. In ED, patient is sitting on wheelchair, breathing comfortably, GVD to jaw, S1-S2 irregular, systolic murmur, abdomen soft, nontender, bilateral lower extremity edema all the way to the scrotum, chronic skin changes on bilateral foot. Patient is seen today during rounds Of dobutamine, switch from Lasix drip to IV Lasix q.6. Workup with PT today. Significantly improved anasarca. Continue diuresis Total critical care time spent on this patient more than 30 minutes including evaluation, chart review, formulating plan and communication with team, excluding any procedures Reviewed: Care Plan, H&P, Labs, Medications, Previous Orders, Radiology Changes from previous H/P or p: No Changes Objective Vitals Vital Signs Date Time Temp Pulse Resp B/P (MAP) Pulse Ox O2 Delivery O2 Flow Rate FiO2 03/17/24 18:00 90/64 03/17/24 15:58 97.2 77 18 96 97.2 03/17/24 14:00 Nasal Cannula* 2 28 Intake/Output Intake and Output 03/17/24 04:00 Intake Total 2761.40 ml Output Total 3000 ml Balance -238.60 ml Intake Oral 1440 ml IV Total 1321.40 ml Output Urine Total 3000 ml Exam Alert, oriented x3 PERRLA JVD to jaw Decreased right-sided breath sounds, bilateral crackles S1-S2 irregular, systolic murmur Abdomen soft nontender, no hepatomegaly Equal strength bilaterally on upper and lower extremities Bilateral lower extremity edema to scrotum Scrotal swelling Medications Current Medications Medications Dose Ordered Sig/Amy Route Start Time Stop Time Status Last Admin Dose Admin Vancomycin HCl 0 ml @ 0 mls/hr UD IV 03/15/24 14:30 Enoxaparin Sodium 100 mg Q12H SC 03/15/24 16:00 03/17/24 16:09 100 MG Vancomycin HCl 200 ml @ 200 mls/hr Q12H IV 03/16/24 04:00 03/17/24 16:10 200 MLS/HR Potassium Bicarbonate 50 meq DAILY PO 03/16/24 10:00 03/17/24 08:13 50 MEQ Metoprolol Succinate 50 mg DAILY PO 03/17/24 10:00 03/17/24 09:22 50 MG Furosemide 40 mg Q6HR IV 03/17/24 10:30 03/17/24 12:00 40 MG Laboratory Results Laboratory Tests 03/17/24 02:27 Chemistry Test 03/17/24 02:27 Albumin 2.8 g/dL (3.2-4.8) L Calcium Level 8.2 mg/dL (8.7-10.4) L Magnesium Level 1.8 mg/dL (1.6-2.6) Phosphorus Level 2.5 mg/dL (2.4-5.1) Total Protein 4.9 g/dL (5.7-8.2) L Cardiac Markers Test 03/17/24 02:27 B-Type Natriuretic Peptide 2480.68 pg/mL (0-100) LFT Test 03/17/24 02:27 Alanine Aminotransferase (ALT) 33 U/L (7-40) Alkaline Phosphatase 63 U/L (46-116) Aspartate Amino Transferase (AST) 41 U/L (13-40) H Total Bilirubin 2.9 mg/dL (0.2-1.0) H Urinalysis Test 03/15/24 22:05 Urine Color Yellow (Yellow) Urine Clarity Turbid (Clear) H Urine pH 5.0 (5.0-9.0) Urine Specific [place] 1.016 (1.001-1.035) Urine Protein Trace (Negative) H Urine Ketones Negative (Negative) Urine Blood Negative /uL (Negative) Urine Nitrite Negative (Negative) Urine Bilirubin Negative (Negative) Urine Urobilinogen 2 mg/dL (Negative) H Urine Leukocyte Esterase Negative /uL (Negative) Urine RBC 3 /hpf (0 - 3) Urine WBC 3 /hpf (0 - 3) Urine Squamous Epithelial Cells None seen /hpf (<5) Urine Bacteria None seen /hpf (None Seen) Urine Hyaline Casts Few /lpf (0 - 2) Urine Mucus Few (None Seen) Urine Glucose Normal mg/dL (Normal) Microbiology Microbiology Date/Time Source Procedure Growth Status 03/15/24 22:05 Voided Urine Urine Culture - Preliminary Resulted 03/15/24 13:31 Blood Blood Culture - Preliminary Resulted Labs and/or images reviewed: Labs reviewed by me, Image(s) reviewed by me Assessment/Plan Assessment/Plan Cardiogenic shock Can not ruled out mixed shock Acute on chronic systolic heart failure Acute on chronic hypoxic respiratory failure secondary to above Aspiration pneumonia, likely Gram-negative Heart failure with reduced ejection fraction Lactic acidosis type 1 Troponin elevation secondary to type 2 MT Smoker Nonsustained V-tach Continue care in [place] Continue with vanc and Zosyn Switch to Lasix 40 mg q.6 Goal urine output -2 L in 1 day Insert Burk Strict I&O stop Dobutamine Continue with metoprolol succinate 25 mg q.d. Continue with digoxin 250 mcg daily Consult cardiology Dr. Conn Nicotine replacement therapy Trend troponin Trend lactic acid Avoid IV hydration, as patient is fluid overloaded Avoid IV antihypertensive agent can give Lasix with map above 60 Conservative pain management Start treatment dose Lovenox for AFib Transferred to telemetry Diet heart healthy DVT prophylaxis on full-dose anticoagulant Condition critical prognosis poor Code status full code Plan discussed with: Patient My Orders Orders - FARHAD FLORES MD Procedure Category Date Status Time Pulmonary/Critical TONY 03/17/24 In Process Care Consul 07:55 Metoprolol Xl PHA 03/17/24 In Process Succinate (Toprol Xl) 10:00 Furosemide Injection PHA 03/17/24 In Process (Lasix Injection) 10:30 Lt Lower Dvt US 03/17/24 Resulted 10:30 Transfer Orders XFER 03/17/24 Transmitted 10:50 Communication Order ORDERS 03/17/24 Transmitted 10:50 Date of Service: Mar 17, 2024 Billing Provider: FARHAD FLORES MD Common Visit Codes: 21139-[id number] INP/OBS CARE(HIGH), 65528-[id number] CARE 30-74 MIN FARHAD FLORES MD Mar 17, 2024 18:50
[2024-03-18] VITALS (8 sets, daily range): BP systolic 94–104; BP diastolic 47–59; PULSE 63–75; RESP 16–18; TEMP 97.7–98.7; O2SAT 92–100
--- NOTE | 2024-03-18 00:48 | DVHPN2 ---
Progress Note - Dictate Date Seen: Mar 17, 2024 Medical Necessity Reason Pt with a Central, PICC or Fol: Yes The following are medically ne: Olsen Catheter Reason for olsen catheter: Strict I&O Subjective Patient seen and examined at bedside. Remains on supplemental oxygen Overnight events reviewed. vital signs Vital Sign Date Time Temp Pulse Resp B/P (MAP) Pulse Ox O2 Delivery O2 Flow Rate FiO2 03/17/24 21:00 97.6 73 18 101/63 (76) 94 97.6 03/17/24 14:00 Nasal Cannula* 2 28 Total Intake and Output 03/17/24 03/17/24 03/18/24 15:00 23:00 07:00 Intake Total 494 ml 800 ml Output Total 2250 ml Balance 494 ml -1450 ml medications Current Medications Medications Dose Ordered Sig/Amy Route Start Time Stop Time Status Last Admin Dose Admin Vancomycin HCl 0 ml @ 0 mls/hr UD IV 03/15/24 14:30 Enoxaparin Sodium 100 mg Q12H SC 03/15/24 16:00 03/17/24 16:09 100 MG Vancomycin HCl 200 ml @ 200 mls/hr Q12H IV 03/16/24 04:00 03/17/24 16:10 200 MLS/HR Potassium Bicarbonate 50 meq DAILY PO 03/16/24 10:00 03/17/24 08:13 50 MEQ Metoprolol Succinate 50 mg DAILY PO 03/17/24 10:00 03/17/24 09:22 50 MG Furosemide 40 mg Q6HR IV 03/17/24 10:30 03/17/24 12:00 40 MG objective Gen.: Patient lying in bed in no apparent distress. On supplemental oxygen. Head: Normocephalic, atraumatic. Eyes: EOMI/PERRLA. Ears: Normal hearing. Normal anatomy. Neck/trachea: Trachea midline, supple. Nose: Normal external anatomy. Mouth: Moist mucous membranes. Chest: Decreased air entry bilaterally. No wheezing or rhonchi. Cardiovascular: Positive S1, positive S2. Regular rate and rhythm. Abdomen: Positive bowel sounds in all 4 quadrants. Soft, non-tender, non- distended. : Deferred. Rectal: Deferred. Skin: Warm, dry. Intact. Extremities: 2+ radial pulses bilaterally. No lower extremity edema. Neuro: Awake, alert, oriented x3. No gross motor or sensory deficits. Cranial nerves II through XII intact. Gait not assessed. laboratory and microbiology Laboratory Tests 03/17/24 02:27 Test 03/17/24 02:27 Range/Units Serum Glucose 104 74-106 mg/dL Assessment/Plan Impression: Right pleural effusion Acute hypoxic respiratory failure Atelectasis Hypokalemia Hypomagnesemia Events: Supplemental oxygen, 2 LPM NC Taper O2 as tolerated Off dobutamine drip Continue antibiotics Incentive spirometry Off Lasix Monitor renal function Monitor electrolytes. Supplement as necessary. K, mag supplementation CXR demonstrates moderate right pleural effusion. Recommend right thoracentesis. Therapeutic Lovenox U/S venous Doppler of LLE showed no e/o DVT. Labs and imaging reviewed Rest of plan as noted below. Plan: Supplemental oxygen, 2 LPM NC Titrate to keep O2 sats above 92%. Taper O2 as tolerated. CXR demonstrates moderate right pleural effusion. Recommend right thoracentesis. Continue antibiotics Incentive spirometry Monitor renal function. Monitor electrolytes. Supplement as necessary. Monitor ins and outs. K, mag supplementation DVT prophylaxis. Prognosis: Guarded given patient's multiple co-morbidities. Rest of plan per hospitalist and other consultants. Thank you Dr. Nicholas Diaz for allowing me to participate in this patient's care. Further recommendations will depend on the patient's clinical course. Please do not hesitate to contact me if you have any questions or concerns. This medical document was created using an electronic medical record system with [employer] dictation system. Although these documentations are being carefully reviewed, there may still be some phonetic and typographical changes. The errors are purely typographical, due to imperfection on the software program, and do not reflect any compromise in the patient's medical care. Plan discussed with: Patient, Other (RN) BOGDAN MANN MD Mar 18, 2024 00:48
[2024-03-18 06:27] LABS: Basophils # (auto) 0 10 ^3/uL (0-0.2); Eosinophils # (auto) 0.2 10 ^3/uL (0-0.8); Hemoglobin 13.6 g/dL (13.5-17.5); Mean Corpuscular Hgb Conc. 32.9 g/dL (32.0-36.0); Monocytes # (auto) 0.8 10 ^3/uL (0-1.3); Neutrophils # (auto) 4.5 10 ^3/uL (1.6-8.6)
[2024-03-18 06:30] LABS: Chloride 92 mmol/L (98-107); Potassium 3.6 mmol/L (3.5-5.1); Sodium 134 mmol/L (136-145)
[2024-03-18 06:31] LABS: Anion Gap 5 (5-15); Basophils % (auto) 0.6 % (0.0-2.0); Calcium 8.5 mg/dL (8.7-10.4); Carbon Dioxide 37 mmol/L (20-31); Eosinophils % (auto) 2.2 % (0.0-7.0); Hematocrit 41.3 % (41.0-53.0); Lymphocytes # (auto) 1.6 10 ^3/uL (0.4-5.4); Lymphocytes % (auto) 22.1 % (10.0-50.0); Mean Corpuscular Hemoglobin 26.2 pg (28.0-32.0); Mean Corpuscular Volume 79.6 fL (80.0-100.0); Monocytes % (auto) 11.6 % (0.0-12.0); Neutrophils % (auto) 63.5 % (37.0-80.0); Nucleated Red Blood Cells % 0.1 %; Platelet Count (auto) 147 10^3/uL (140-450); Red Blood Cells 5.19 10^6/uL (4.5-5.90); Red Cell Distribution Width 20.4 % (11.8-14.3); White Blood Cell 7.1 10^3/uL (4.4-10.8)
[2024-03-18 06:36] LABS: BUN/Creatinine Ratio 24.4 (10.0-20.0); Blood Urea Nitrogen 19 mg/dL (9-23); Glucose 113 mg/dL (74-106)
--- NOTE | 2024-03-18 08:53 | MEDREC ---
[facility] Intervention Section I [facility] Intervention: Review courses of therapy (PLEASE CONSIDER ADDING ANTIBIOTIC FOR GRAM NEG COVERAGE (CEFTRIAXONE / CEFEPIME IF PSEUDOMONAS SUSPECTED)) RAVEN SILVEIRA PHARMACIST Mar 18, 2024 08:53
--- NOTE | 2024-03-18 13:30 | DVHPN2 ---
Progress Note - Dictate Date Seen: Mar 18, 2024 Medical Necessity Reason Pt with a Central, PICC or Fol: Yes The following are medically ne: Olsen Catheter Reason for olsen catheter: Strict I&O Subjective PT LEFT HOSPITAL AND WAS READMITTED FOR CHF PT PRESENTED TO MY OFFICE WITH ANASARCA PLEURAL EFFUSION HX OF HFrEF ACUTE WITH CHRONIC HX OF TOBACCO USE LINDA OBESITY vital signs Vital Sign Date Time Temp Pulse Resp B/P (MAP) Pulse Ox O2 Delivery O2 Flow Rate FiO2 03/18/24 12:28 100/56 03/18/24 10:00 63 03/18/24 09:02 98.7 18 96 98.7 03/18/24 08:00 Nasal Cannula* 2 28 Total Intake and Output 03/17/24 03/17/24 03/18/24 15:00 23:00 07:00 Intake Total 494 ml 800 ml 450 ml Output Total 2250 ml 700 ml Balance 494 ml -1450 ml -250 ml medications Current Medications Medications Dose Ordered Sig/Amy Route Start Time Stop Time Status Last Admin Dose Admin Vancomycin HCl 0 ml @ 0 mls/hr UD IV 03/15/24 14:30 Enoxaparin Sodium 100 mg Q12H SC 03/15/24 16:00 03/18/24 10:00 100 MG Vancomycin HCl 200 ml @ 200 mls/hr Q12H IV 03/16/24 04:00 03/18/24 04:02 200 MLS/HR Potassium Bicarbonate 50 meq DAILY PO 03/16/24 10:00 03/18/24 10:01 50 MEQ Metoprolol Succinate 50 mg DAILY PO 03/17/24 10:00 03/18/24 10:00 50 MG Furosemide 40 mg Q6HR IV 03/17/24 10:30 03/18/24 12:28 40 MG objective ECHO EF <20% SEVERE TR/ MR MOD AI LVE LAE NERISSA PAH laboratory and microbiology Laboratory Tests 03/18/24 05:58 Test 03/18/24 05:58 Range/Units Serum Glucose 113 H 74-106 mg/dL Problem List HFrEF ANASARCA Assessment/Plan LASIX CHANGE TO BUMEX MAY DC HOME ENTRESTO BID WILL REQUIRE LHC Plan discussed with: Patient Critical Care Time(min): 35 ISSAC SHAH MD Mar 18, 2024 13:30
--- NOTE | 2024-03-18 19:54 | DVHPN2 ---
Subjective 63-year-old male previously AMA from the same admission, brought back in by his girlfriend. History of heart failure with reduced ejection fraction last echo 15%, smoker, hypertension, afib not on ac. On last admission patient admitted for acute chronic heart failure exacerbation, started on dobutamine drip for cardiogenic shock, started on Lasix drip. Patient had some improvement but was complicated by AFib with RVR, dobutamine discontinued, continued on Lasix drip, started on metoprolol as blood pressure holding up. Patient lives in a throughout the night, reported feeling really flushed and hot, patient pending and left take a cold shower. From chart review patient had a fever, chest x-ray show slight worsening on right-sided pneumonia, patient was started on vanc and desmond. In ED, patient is sitting on wheelchair, breathing comfortably, GVD to jaw, S1-S2 irregular, systolic murmur, abdomen soft, nontender, bilateral lower extremity edema all the way to the scrotum, chronic skin changes on bilateral foot. Patient is seen today during rounds Continue diuresing with IV Lasix, we will change to p.o. Bumex. Remove Burk today. We will initiate Entresto. Discussed with Cardiology Reviewed: Care Plan, H&P, Labs, Medications, Previous Orders, Radiology Changes from previous H/P or p: No Changes Objective Vitals Vital Signs Date Time Temp Pulse Resp B/P (MAP) Pulse Ox O2 Delivery O2 Flow Rate FiO2 03/18/24 18:37 100/58 03/18/24 16:54 98.1 71 16 96 98.1 03/18/24 08:00 Nasal Cannula* 2 28 Intake/Output Intake and Output 03/18/24 04:00 Intake Total 1610 ml Output Total 6250 ml Balance -4640 ml Intake Oral 700 ml IV Total 910 ml Output Urine Total 6250 ml Exam Alert, oriented x3 PERRLA JVD to jaw Decreased right-sided breath sounds, bilateral crackles S1-S2 irregular, systolic murmur Abdomen soft nontender, no hepatomegaly Equal strength bilaterally on upper and lower extremities Bilateral lower extremity edema to scrotum Scrotal swelling Medications Current Medications Medications Dose Ordered Sig/Amy Route Start Time Stop Time Status Last Admin Dose Admin Vancomycin HCl 0 ml @ 0 mls/hr UD IV 03/15/24 14:30 Enoxaparin Sodium 100 mg Q12H SC 03/15/24 16:00 03/18/24 10:00 100 MG Vancomycin HCl 200 ml @ 200 mls/hr Q12H IV 03/16/24 04:00 03/18/24 15:53 200 MLS/HR Potassium Bicarbonate 50 meq DAILY PO 03/16/24 10:00 03/18/24 10:01 50 MEQ Metoprolol Succinate 50 mg DAILY PO 03/17/24 10:00 03/18/24 10:00 50 MG Furosemide 40 mg Q6HR IV 03/17/24 10:30 03/18/24 18:37 40 MG Laboratory Results Laboratory Tests 03/18/24 05:58 Chemistry Test 03/18/24 05:58 Calcium Level 8.5 mg/dL (8.7-10.4) L Urinalysis Test 03/15/24 22:05 Urine Color Yellow (Yellow) Urine Clarity Turbid (Clear) H Urine pH 5.0 (5.0-9.0) Urine Specific [place] 1.016 (1.001-1.035) Urine Protein Trace (Negative) H Urine Ketones Negative (Negative) Urine Blood Negative /uL (Negative) Urine Nitrite Negative (Negative) Urine Bilirubin Negative (Negative) Urine Urobilinogen 2 mg/dL (Negative) H Urine Leukocyte Esterase Negative /uL (Negative) Urine RBC 3 /hpf (0 - 3) Urine WBC 3 /hpf (0 - 3) Urine Squamous Epithelial Cells None seen /hpf (<5) Urine Bacteria None seen /hpf (None Seen) Urine Hyaline Casts Few /lpf (0 - 2) Urine Mucus Few (None Seen) Urine Glucose Normal mg/dL (Normal) Microbiology Microbiology Date/Time Source Procedure Growth Status 03/15/24 22:05 Voided Urine Urine Culture - Final Complete 03/15/24 13:31 Blood Blood Culture - Preliminary Staphylococcus aureus Resulted Labs and/or images reviewed: Labs reviewed by me, Image(s) reviewed by me Assessment/Plan Assessment/Plan Cardiogenic shock , resolved Can not ruled out mixed shock Acute on chronic systolic heart failure Acute on chronic hypoxic respiratory failure secondary to above Aspiration pneumonia, likely Gram-negative Heart failure with reduced ejection fraction Lactic acidosis type 1 Troponin elevation secondary to type 2 NC Smoker Nonsustained V-tach Continue care in [place] Continue with vanc and Zosyn Switch Lasix to Bumex 2 mg b.i.d. p.o. Goal urine output -2 L in 1 day Insert Burk Strict I&O stop Dobutamine Continue with metoprolol succinate 25 mg q.d. Continue with digoxin 250 mcg daily Consult cardiology Dr. Conn Nicotine replacement therapy Trend troponin Trend lactic acid Avoid IV hydration, as patient is fluid overloaded Avoid IV antihypertensive agent can give Bumex with map above 60 Conservative pain management Start treatment dose Lovenox for AFib Start Entresto Transferred to telemetry Diet heart healthy DVT prophylaxis on full-dose anticoagulant Condition critical prognosis poor Code status full code Plan discussed with: Patient My Orders Orders - FARHAD FLORES MD Procedure Category Date Status Time *Consult CONS 03/18/24 Transmitted / 13:02 Date of Service: Mar 18, 2024 Billing Provider: FARHAD FLORES MD Common Visit Codes: 14737-[id number] INP/OBS CARE(HIGH) FARHAD FLORES MD Mar 18, 2024 19:54
--- NOTE | 2024-03-18 21:46 | DVHPN2 ---
Progress Note - Dictate Date Seen: Mar 18, 2024 Medical Necessity Reason Pt with a Central, PICC or Fol: No The following are medically ne: Olsen Catheter Reason for olsen catheter: Strict I&O Subjective Patient seen and examined at bedside. Remains on supplemental oxygen Overnight events reviewed. vital signs Vital Sign Date Time Temp Pulse Resp B/P (MAP) Pulse Ox O2 Delivery O2 Flow Rate FiO2 03/18/24 18:37 100/58 03/18/24 16:54 98.1 71 16 96 98.1 03/18/24 08:00 Nasal Cannula* 2 28 Total Intake and Output 03/17/24 03/17/24 03/18/24 15:00 23:00 07:00 Intake Total 494 ml 800 ml 450 ml Output Total 2250 ml 700 ml Balance 494 ml -1450 ml -250 ml medications Current Medications Medications Dose Ordered Sig/Amy Route Start Time Stop Time Status Last Admin Dose Admin Vancomycin HCl 0 ml @ 0 mls/hr UD IV 03/15/24 14:30 Enoxaparin Sodium 100 mg Q12H SC 03/15/24 16:00 03/18/24 10:00 100 MG Vancomycin HCl 200 ml @ 200 mls/hr Q12H IV 03/16/24 04:00 03/18/24 15:53 200 MLS/HR Potassium Bicarbonate 50 meq DAILY PO 03/16/24 10:00 03/18/24 10:01 50 MEQ Metoprolol Succinate 50 mg DAILY PO 03/17/24 10:00 03/18/24 10:00 50 MG Bumetanide 2 mg BIDD PO 03/19/24 06:00 Sacubitril/ Valsartan 1 tab BID PO 03/18/24 22:00 objective Gen.: Patient lying in bed in no apparent distress. On supplemental oxygen. Head: Normocephalic, atraumatic. Eyes: EOMI/PERRLA. Ears: Normal hearing. Normal anatomy. Neck/trachea: Trachea midline, supple. Nose: Normal external anatomy. Mouth: Moist mucous membranes. Chest: Decreased air entry bilaterally. No wheezing or rhonchi. Cardiovascular: Positive S1, positive S2. Regular rate and rhythm. Abdomen: Positive bowel sounds in all 4 quadrants. Soft, non-tender, non- distended. : Deferred. Rectal: Deferred. Skin: Warm, dry. Intact. Extremities: 2+ radial pulses bilaterally. No lower extremity edema. Neuro: Awake, alert, oriented x3. No gross motor or sensory deficits. Cranial nerves II through XII intact. Gait not assessed. laboratory and microbiology Laboratory Tests 03/18/24 05:58 Test 03/18/24 05:58 Range/Units Serum Glucose 113 H 74-106 mg/dL Assessment/Plan Impression: Right pleural effusion Acute hypoxic respiratory failure Atelectasis Hypokalemia Hypomagnesemia Events: Supplemental oxygen, 2 LPM NC Taper O2 as tolerated Off dobutamine drip Olsen was removed. Continue antibiotics Incentive spirometry Diurese w/ Lasix Monitor renal function Monitor electrolytes. Supplement as necessary. CXR demonstrates moderate right pleural effusion. Recommend right thoracentesis. Anticoagulation w/ Lovenox U/S venous Doppler of LLE showed no e/o DVT. Labs and imaging reviewed Rest of plan as noted below. Plan: Supplemental oxygen, 2 LPM NC Titrate to keep O2 sats above 92%. Taper O2 as tolerated. CXR demonstrates moderate right pleural effusion. Recommend right thoracentesis. Continue antibiotics Incentive spirometry Monitor renal function. Monitor electrolytes. Supplement as necessary. Monitor ins and outs. K, mag supplementation DVT prophylaxis. Prognosis: Guarded given patient's multiple co-morbidities. Rest of plan per hospitalist and other consultants. Thank you Dr. Nicholas Diaz for allowing me to participate in this patient's care. Further recommendations will depend on the patient's clinical course. Please do not hesitate to contact me if you have any questions or concerns. This medical document was created using an electronic medical record system with eMagin dictation system. Although these documentations are being carefully reviewed, there may still be some phonetic and typographical changes. The errors are purely typographical, due to imperfection on the software program, and do not reflect any compromise in the patient's medical care. Plan discussed with: Patient, Other (BOGDAN Chavira MD Mar 18, 2024 21:46
[2024-03-18] MEDS: SACUBITRIL-VALSARTAN 24mg/26mg TAB PO SCH (22:18)
[2024-03-19 01:00] VITALS: BP 89/41; PULSE 71; RESP 18; TEMP 98.3; O2SAT 96
[2024-03-19 05:00] VITALS: BP 92/42; PULSE 64; RESP 18; TEMP 97.9; O2SAT 95
[2024-03-19] MEDS: BUMETANIDE 1 MG TAB PO SCH (06:36)
[2024-03-19 06:37] LABS: Chloride 92 mmol/L (98-107); Potassium 3.5 mmol/L (3.5-5.1); Sodium 135 mmol/L (136-145)
[2024-03-19 06:38] LABS: Anion Gap 7 (5-15); Calcium 8.5 mg/dL (8.7-10.4); Carbon Dioxide 36 mmol/L (20-31)
[2024-03-19 06:43] LABS: BUN/Creatinine Ratio 27.1 (10.0-20.0); Blood Urea Nitrogen 19 mg/dL (9-23); Glucose 97 mg/dL (74-106)
[2024-03-19 08:00] VITALS: PULSE 67
[2024-03-19 09:09] VITALS: BP 100/51; PULSE 69; RESP 19; TEMP 98.9; O2SAT 98
[2024-03-19 13:03] VITALS: BP 105/48; PULSE 66; RESP 16; TEMP 98.6; O2SAT 97
--- NOTE | 2024-03-19 14:40 | DVHPN2 ---
Progress Note - Dictate Date Seen: Mar 19, 2024 Medical Necessity Reason Pt with a Central, PICC or Fol: No The following are medically ne: Olsen Catheter Reason for olsen catheter: Strict I&O Subjective PT LEFT HOSPITAL AND WAS READMITTED FOR CHF PT PRESENTED TO MY OFFICE WITH ANASARCA PLEURAL EFFUSION HX OF HFrEF ACUTE WITH CHRONIC HX OF TOBACCO USE LINDA OBESITY vital signs Vital Sign Date Time Temp Pulse Resp B/P (MAP) Pulse Ox O2 Delivery O2 Flow Rate FiO2 03/19/24 13:03 98.6 66 16 105/48 (67) 97 98.6 03/19/24 07:55 Nasal Cannula* 2 28 Total Intake and Output 03/18/24 03/18/24 03/19/24 15:00 23:00 07:00 Intake Total 985 ml 200 ml Output Total 200 ml 1280 ml Balance 785 ml -1080 ml medications Current Medications Medications Dose Ordered Sig/Amy Route Start Time Stop Time Status Last Admin Dose Admin Vancomycin HCl 0 ml @ 0 mls/hr UD IV 03/15/24 14:30 Enoxaparin Sodium 100 mg Q12H SC 03/15/24 16:00 03/19/24 04:03 100 MG Vancomycin HCl 200 ml @ 200 mls/hr Q12H IV 03/16/24 04:00 03/19/24 04:02 200 MLS/HR Potassium Bicarbonate 50 meq DAILY PO 03/16/24 10:00 03/19/24 11:09 50 MEQ Metoprolol Succinate 50 mg DAILY PO 03/17/24 10:00 03/19/24 11:08 50 MG Bumetanide 2 mg BIDD PO 03/19/24 06:00 03/19/24 06:36 2 MG Sacubitril/ Valsartan 1 tab BID PO 03/18/24 22:00 03/19/24 11:09 1 TAB objective ECHO EF <20% SEVERE TR/ MR MOD AI LVE LAE NERISSA PAH laboratory and microbiology Laboratory Tests 03/19/24 05:51 03/18/24 05:58 Test 03/19/24 05:51 Range/Units Serum Glucose 97 74-106 mg/dL Problem List HFrEF ANASARCA Assessment/Plan LASIX CHANGE TO BUMEX MAY DC HOME ENTRESTO BID WILL REQUIRE C CORRECT K+ CONSIDER ADDING ALDACTONE 25 MG PO QD DC HOME F/U IN 1 WEEK Plan discussed with: Patient ISSAC SHAH MD Mar 19, 2024 14:40
--- NOTE | 2024-03-19 15:36 | MEDREC ---
[facility] ASP Intervention Section I [facility] ASP Intervention: Deescalate AB based on CS (PLEASE CONSIDER DEESCALATE ANTIBIOTICS BASED ON CULTURE RESULTS ) RAVEN SILVEIRA PHARMACIST Mar 19, 2024 15:36
--- NOTE | 2024-03-19 15:57 | DVHDS2 ---
Discharge Summary Date of Admission Mar 15, 2024 at 14:47 Date of Discharge: Mar 19, 2024 Labs/Diagnostic Data: Laboratory Results Test 03/19/24 14:55 03/19/24 05:51 03/18/24 05:58 03/17/24 02:27 Vancomycin Level Trough 22.6 ug/mL (5-10) Sodium Level 135 mmol/L (136-145) Potassium Level 3.5 mmol/L (3.5-5.1) Chloride Level 92 mmol/L (98-107) Carbon Dioxide Level 36 mmol/L (20-31) Anion Gap 7 (5-15) Blood Urea Nitrogen 19 mg/dL (9-23) Creatinine 0.70 mg/dL (0.700-1.30) Glomerular Filtration Rate Calc 104 mL/min (>90) BUN/Creatinine Ratio 27.1 (10.0-20.0) Serum Glucose 97 mg/dL (74-106) Calcium Level 8.5 mg/dL (8.7-10.4) White Blood Count 7.1 10^3/uL (4.4-10.8) Red Blood Count 5.19 10^6/uL (4.5-5.90) Hemoglobin 13.6 g/dL (13.5-17.5) Hematocrit 41.3 % (41.0-53.0) Mean Corpuscular Volume 79.6 fL (80.0-100.0) Mean Corpuscular Hemoglobin 26.2 pg (28.0-32.0) Mean Corpuscular Hemoglobin Concent 32.9 g/dL (32.0-36.0) Red Cell Distribution Width 20.4 % (11.8-14.3) Platelet Count 147 10^3/uL (140-450) Mean Platelet Volume 9.6 fL (6.9-10.8) Neutrophils (%) (Auto) 63.5 % (37.0-80.0) Lymphocytes (%) (Auto) 22.1 % (10.0-50.0) Monocytes (%) (Auto) 11.6 % (0.0-12.0) Eosinophils (%) (Auto) 2.2 % (0.0-7.0) Basophils (%) (Auto) 0.6 % (0.0-2.0) Neutrophils # (Auto) 4.5 10 ^3/uL (1.6-8.6) Lymphocytes # (Auto) 1.6 10 ^3/uL (0.4-5.4) Monocytes # (Auto) 0.8 10 ^3/uL (0-1.3) Eosinophils # (Auto) 0.2 10 ^3/uL (0-0.8) Basophils # (Auto) 0 10 ^3/uL (0-0.2) Nucleated Red Blood Cells 0.1 % Phosphorus Level 2.5 mg/dL (2.4-5.1) Magnesium Level 1.8 mg/dL (1.6-2.6) Total Bilirubin 2.9 mg/dL (0.2-1.0) Aspartate Amino Transferase (AST) 41 U/L (13-40) Alanine Aminotransferase (ALT) 33 U/L (7-40) Alkaline Phosphatase 63 U/L (46-116) B-Type Natriuretic Peptide 2480.68 pg/mL (0-100) Total Protein 4.9 g/dL (5.7-8.2) Albumin 2.8 g/dL (3.2-4.8) Test 03/16/24 13:07 03/16/24 13:04 03/16/24 09:20 03/15/24 22:05 Lactic Acid Level 2.0 mmol/L (0.4-2.0) Troponin I High Sensitivity 978 ng/L (</=54) Blood Gas Specimen Type Arterial Blood Gas Sample Site Right radial Blood Gas Patient Temperature 37.0 Arterial Blood Date Drawn [id number] Arterial Blood pH 7.513 (7.350-7.450) Arterial Blood Partial Pressure CO2 40.3 mmHg (35.0-48.0) Arterial Blood Partial Pressure O2 65.2 mmHg (83.0-108.0) Arterial Blood HCO3 31.7 mmol/L (21.0-28.0) Arterial Blood Oxygen Saturation 92.3 % (94.0-98.0) Arterial Blood Base Excess 8.0 mmol/L (-2.0-3.0) Arterial Blood Oxyhemoglobin 90.3 % (94.0-98.0) Arterial Blood Carboxyhemoglobin 1.7 % (0.5-1.5) Arterial Blood Methemoglobin 0.5 % (0.0-1.5) Mark Test Yes Blood Gas Total Hemoglobin 13.70 g/dL (13.5-17.5) Blood Gas Liter Flow 2.00 Blood Gas Modality Nasal cannula FiO2 % 28.0 Urine Color Yellow (Yellow) Urine Clarity Turbid (Clear) Urine pH 5.0 (5.0-9.0) Urine Specific [place] 1.016 (1.001-1.035) Urine Protein Trace (Negative) Urine Ketones Negative (Negative) Urine Blood Negative /uL (Negative) Urine Nitrite Negative (Negative) Urine Bilirubin Negative (Negative) Urine Urobilinogen 2 mg/dL (Negative) Urine Leukocyte Esterase Negative /uL (Negative) Urine RBC 3 /hpf (0 - 3) Urine WBC 3 /hpf (0 - 3) Urine Squamous Epithelial Cells None seen /hpf (<5) Urine Bacteria None seen /hpf (None Seen) Urine Hyaline Casts Few /lpf (0 - 2) Urine Mucus Few (None Seen) Urine Glucose Normal mg/dL (Normal) Urine Opiates Screen Neg (NEGATIVE) Urine Fentanyl Screen Neg (NEGATIVE) Urine Barbiturates Screen Neg (NEGATIVE) Urine Phencyclidine Screen Neg (NEGATIVE) Urine Amphetamines Screen Pos (NEGATIVE) Urine Benzodiazepines Screen Neg (NEGATIVE) Urine Cocaine Screen Neg (NEGATIVE) Urine Cannabinoids Screen Neg (NEGATIVE) Other Laboratory Tests 03/19/24 05:51 03/18/24 05:58 Brief Hx & Hospital Course: 3-year-old male with severe heart failure with reduced ejection fraction initially was admitted and left AMA. When he came back in was in cardiogenic shock, started on dobutamine and Lasix drip. Blood culture positive for MRSA bacteremia, started on vancomycin. Further diuresis and patient with improvement significantly. You will need home PT, titrate up GDM T. social service consult placed for home IV antibiotic treatment and home PT. Patient to follow up with principal military analyst . Discharged on Bumex2 mg b.i.d. Condition at Discharge: Good Final Diagnosis/Problems List Cardiogenic shock, resolved Acute on chronic heart failure with reduced ejection fraction MRSA bacteremia Bilateral pleural effusion Deconditioning Discharge Disposition: Home with Health Services 45 Discharge Statement: "Patient was advised to return to the ER or call 911 if any headaches, dizziness, shortness of breath, chest pain, abdominal pain, bleeding, fevers, or worsening of medical condition. Patient was counseled about treatment plan, medications, possible side effects, patientverbalized understanding. All questions were answered to the best of my ability. This discharge took greater then 30 minutes in planning, reviewing documentation, counseling the patient, and discussing with other team members." ASSESSMENT ASSESSMENT Assessment Cardiogenic shock Acute on chronic systolic heart failure Acute on chronic hypoxic respiratory failure secondary to above Heart failure with reduced ejection fraction Titrate up GDM T Take Bumex at home Follow up with your principal military analyst Heart failure with reduced ejection fraction Bacteremia On vancomycin Social service consult for home IV antibiotics Aspiration pneumonia, likely Gram-negative Bilateral pleural effusion Likely from heart failure Follow up with Pulmonary Lactic acidosis type 1, resolved Troponin elevation secondary to type 2 IA , resolved Smoker Discharged with and RT Nonsustained V-tach, resolves once off dobutamine Conditioning Home PT Date of Service: Mar 19, 2024 Billing Provider: FARHAD FLORES MD Common Visit Codes: 16016-PMG/OBS DISCH DAY >30min FARHAD FLORES MD Mar 19, 2024 15:57
--- NOTE | 2024-03-19 18:38 | DVHPN2 ---
Progress Note - Dictate Date Seen: Mar 19, 2024 Medical Necessity Reason Pt with a Central, PICC or Fol: No The following are medically ne: Olsen Catheter Reason for olsen catheter: Strict I&O Subjective Patient seen and examined at bedside. Remains on supplemental oxygen Overnight events reviewed. vital signs Vital Sign Date Time Temp Pulse Resp B/P (MAP) Pulse Ox O2 Delivery O2 Flow Rate FiO2 03/19/24 16:21 112/54 03/19/24 13:03 98.6 66 16 97 98.6 03/19/24 07:55 Nasal Cannula* 2 28 Total Intake and Output 03/18/24 03/18/24 03/19/24 15:00 23:00 07:00 Intake Total 985 ml 200 ml Output Total 200 ml 1280 ml Balance 785 ml -1080 ml objective Gen.: Patient lying in bed in no apparent distress. On supplemental oxygen. Head: Normocephalic, atraumatic. Eyes: EOMI/PERRLA. Ears: Normal hearing. Normal anatomy. Neck/trachea: Trachea midline, supple. Nose: Normal external anatomy. Mouth: Moist mucous membranes. Chest: Decreased air entry bilaterally. No wheezing or rhonchi. Cardiovascular: Positive S1, positive S2. Regular rate and rhythm. Abdomen: Positive bowel sounds in all 4 quadrants. Soft, non-tender, non- distended. : Deferred. Rectal: Deferred. Skin: Warm, dry. Intact. Extremities: 2+ radial pulses bilaterally. No lower extremity edema. Neuro: Awake, alert, oriented x3. No gross motor or sensory deficits. Cranial nerves II through XII intact. Gait not assessed. laboratory and microbiology Laboratory Tests 03/19/24 05:51 03/18/24 05:58 Test 03/19/24 05:51 Range/Units Serum Glucose 97 74-106 mg/dL Assessment/Plan Impression: Right pleural effusion Acute hypoxic respiratory failure Atelectasis Hypokalemia Hypomagnesemia Events: Supplemental oxygen, 2 LPM NC Off dobutamine drip Olsen was removed. Continue antibiotics Continue anticoagulation for AFib Diurese w/ Lasix Monitor renal function Monitor electrolytes. Supplement as necessary. Fluid restriction CXR demonstrates moderate right pleural effusion. Recommend right thoracentesis. Anticoagulation w/ Lovenox U/S venous Doppler of LLE showed no e/o DVT. Patient is stable for discharge from the pulmonary standpoint. Labs and imaging reviewed Rest of plan as noted below. Plan: Supplemental oxygen, 2 LPM NC Titrate to keep O2 sats above 92%. Taper O2 as tolerated. CXR demonstrates moderate right pleural effusion. Recommend right thoracentesis. Continue antibiotics Incentive spirometry Monitor renal function. Monitor electrolytes. Supplement as necessary. Monitor ins and outs. K, mag supplementation DVT prophylaxis. Prognosis: Guarded given patient's multiple co-morbidities. Rest of plan per hospitalist and other consultants. Thank you Dr. Nicholas Diaz for allowing me to participate in this patient's care. Further recommendations will depend on the patient's clinical course. Please do not hesitate to contact me if you have any questions or concerns. This medical document was created using an electronic medical record system with wedgies dictation system. Although these documentations are being carefully reviewed, there may still be some phonetic and typographical changes. The errors are purely typographical, due to imperfection on the software program, and do not reflect any compromise in the patient's medical care. Dietary Evaluation Review Comments: 1) Consider a Cardiac diet 2) Continue current plan of care Expected Outcomes/Goals: F/U in 3-5 days Plan discussed with: Patient, Other (RN) BOGDAN MANN MD Mar 19, 2024 18:38
[2024-03-19] MEDS ORDERED: DOXY1CAP57 PO (20:19)
[2024-03-19] MEDS ORDERED: SPIR25TA PO (20:19)
[2024-03-19] MEDS ORDERED: METO-289 PO (20:19)
[2024-03-19] MEDS ORDERED: SACU1TAB PO (20:19)
[2024-03-19] MEDS ORDERED: BUME2TAB5 PO (20:19)
[2024-03-20] MEDS ORDERED: VANCOMYCIN 1GM/200ML PREMIX 200 ML IV SCH (08:00)
== END 2024-03-19 17:30 | disposition left against medical advice (07) | DRG 469 ==
LOC: ER 12:11 → OVERFLOW 14:47 → TELE 15:03 → DOU IN ICU 23:58 → TELE-EAST 03-17 15:56
PROVIDERS: ADMIT Registered Nurse General Practice; ATTEND Student in an Organized Health Care Education/Training Program
DX: N17.0 Acute kidney failure with tubular necrosis (principal); J96.21 Acute and chronic respiratory failure with hypoxia; J69.0 Pneumonitis due to inhalation of food and vomit; I50.23 Acute on chronic systolic (congestive) heart failure; R57.0 Cardiogenic shock; I11.0 Hypertensive heart disease with heart failure; J15.69 Pneumonia due to other Gram-negative bacteria; E87.20 Acidosis, unspecified; I48.91 Unspecified atrial fibrillation; I21.A1 Myocardial infarction type 2; I47.20 Ventricular tachycardia, unspecified; E83.42 Hypomagnesemia; E87.6 Hypokalemia; J98.11 Atelectasis; Z53.29 Procedure and treatment not carried out because of patient's decision for other reasons; F17.210 Nicotine dependence, cigarettes, uncomplicated; Z83.3 Family history of diabetes mellitus
CPT/HCPCS: 36415; 36600; 71045; 80048; 80053; 80202; 80307; 81001; 82805; 83605; 83735; 83880; 84100; 84484; 85025; 87040; 87077; 87086; 87147; 87186; 93005; 93971; 97110; 97116; 97163; 97530; G0378; J2543; J3480; J7060; P9047

== ENCOUNTER 2024-05-17 12:43 | Emergency (ER) | payer MEDICAID ==
[~2024-05-17] VITALS: Ht 152.4 cm; Wt 72.7 kg
[~2024-05-17 12:43] MED LIST changes: +BUME2TAB5 PO; +DOXY1CAP57 PO; +METO-289 PO; +SACU1TAB PO; +SPIR25TA PO; +SPIR50TA5 PO
[2024-05-17 12:58] VITALS: BP 129/81; PULSE 85; RESP 18; O2SAT 95
--- NOTE | 2024-05-17 13:33 | ED.PDOC ---
Musculoskeletal HPI Comments 63 y.o male with PMH of CHF, AFIB, HTN, TIA, and gallstones,presents to the ED for a chief complaint of bilateral leg edema associated with erythema and SOB that started 4 days ago but has progressively worsened. Patient reports taking water pills, has been compliant with taking them and the rest of his medications. Patient denies any chest pain, nausea, vomiting, diarrhea, abdominal, pain, fever or chills. Chief Complaint: Lower Extremity Time Seen by MD: 12:57 Primary Care Provider: ISSAC Reviewed Notes: Nurses Notes, Medications, Allergies Allergies: Coded Allergies: NO KNOWN ALLERGIES (Unverified , 03/11/24) Home Meds Active Scripts Bumetanide (Bumetanide) 2 Mg Tab, 1 TAB PO BID for 30 Days, #60 TAB 0 Refills Prov:FARHAD FLORES MD 03/19/24 Spironolactone (Aldactone) 25 Mg Tab, 1 TAB PO DAILY for 30 Days, #30 TAB 1 Refill Prov:FARHAD FLORES MD 03/19/24 Metoprolol Succinate (Metoprolol Succinate Er) 50 Mg Tab, 1 TAB PO DAILY for 30 Days, #30 TAB 5 Refills Prov:FARHAD FLORES MD 03/19/24 Sacubitril-Valsartan (Entresto 24-26 mg) 1 Tab Tab, 1 TAB PO BID for 30 Days, #60 TAB Prov:FARHAD FLORES MD 03/19/24 Doxycycline Monohydrate (Doxycycline Monohydrate) 100 Mg Cap, 1 CAP PO BID for 14 Days, #28 CAP Prov:FARHAD FLORES MD 03/19/24 Reported Medications Ursodiol (Ursodiol) 300 Mg Cap, 1 TAB PO BID for 90 Days, #180 03/18/24 Terbinafine Hcl (Terbinafine Hcl) 250 Mg Tab, 1 TAB PO DAILY for 90 Days, #90 03/18/24 Furosemide (Furosemide) 20 Mg Tab, 1 TAB PO DAILY, #90 TAB 1 Refill 03/12/24 Terbinafine Hcl (Topical) (Lamisil At Athletes Foot) 1 % Cre, 1 % EX, CRE 03/12/24 Losartan Potassium (Losartan Potassium) 50 Mg Tab, 1 TAB PO DAILY, #30 TAB 5 Refills 03/12/24 Information Source: Patient Mode of Arrival: EMS Location: Bilateral Extremity Location: Leg Timing: Days (4) Severity: Moderate Able to Move Extremity: Yes Bear Weight: Fully Mechanism: None Circumstances: Spontaneous Symptoms: Swelling, Erythema Associated signs and symptoms: Swelling Past Medical History PAST MEDICAL HISTORY: AFIB, CHF, Gallstones, HTN, TIA Surgical History: Denies all surgeries Family History Family History: Reviewed,noncontributory to illness, Family hx of DM Social History Smoker: Cigarettes, Less Than 1 Pack/Day Alcohol: Denies ETOH Use Drugs: Denies Drug Use Lives In: Home Constitutional: denies: chills, diaphoresis, fatigue, fever, malaise, sweats, weakness, others EENTM: denies: blurred vision, double vision, ear bleeding, ear discharge, ear drainage, ear pain, ear ringing, eye pain, eye redness, hearing loss, mouth pain, mouth swelling, nasal discharge, nose bleeding, nose congestion, nose pain, photophobia, tearing, throat pain, throat swelling, voice changes, others Respiratory: reports: SOB at rest, shortness of breath; denies: cough, hemoptysis, orthopnea, SOB with excertion, stridor, wheezing, others Cardiovascular: denies: chest pain, dizzy spells, diaphoresis, Dyspnea on exertion, edema, irregular heart beat, left arm pain, lightheadedness, palpitations, PND, syncope, others Gastrointestinal: denies: abdomen distended, abdominal pain, blood streaked bowels, constipated, diarrhea, dysphagia, difficulty swallowing, hematemesis, melena, nausea, poor appetite, poor fluid intake, rectal bleeding, rectal pain, vomiting, others Genitourinary: denies: burning, dysuria, flank pain, frequency, hematuria, incontinence, penile discharge, penile sore, pain, testicle pain, testicle swelling, urgency, others Neurological: denies: dizziness, fainting, headache, left sided numbness, left sided weakness, numbness, paresthesia, pre-existing deficit, right sided numbness, right sided weakness, seizure, speech problems, tingling, tremors, weakness, others Musculoskeletal: denies: back pain, gout, joint pain, joint swelling, muscle pain, muscle stiffness, neck pain, others Integumetry: reports: others (leg swelling, erythema ); denies: bruises, change in color, change in hair/nails, dryness, laceration, lesions, lumps, rash, wounds Allergic/Immunocompromised: denies: Difficulty Healing, Frequent Infections, Hives, Itching, others Hematologic/Lymphatic: denies: anemia, blood clots, easy bleeding, easy bruising, swollen glands, others Endocrine: denies: excessive hunger, excessive sweating, excessive thirst, excessive urination, flushing, intolerance to cold, intolerance to heat, unexplained weight gain, unexplained weight loss, others Psychiatric: denies: anxiety, bipolar disorder, depression, hopeless, panic disorder, schizophrenia, sleepless, suicidal, others All Other Systems: Reviewed and Negative Physical Exam General Appearance: No Apparent Distress, Normal HEENT: Normal ENT Inspection, Pharynx Normal, TMs Normal Neck: Full Range of Motion, Non-Tender, Normal, Normal Inspection Respiratory: No Accessory Muscle Use, Other (diminished sounds bilaterally ) Cardiovascular: No Edema, No JVD, No Murmur, No Gallop, Normal Peripheral Pulses, Regular Rate/Rhythm Breast Exam: Deferred Gastrointestinal: No Organomegaly, Non Tender, No Pulsatile Mass, Normal Bowel Sounds, Soft Genitalia: Deferred Pelvic: Deferred Rectal: Deferred Extremities: Leg edema, Swelling, Tender Musculoskeletal : Apperance: Normal Neurologic: Alert, program or project administrator II-XII nml as Tested, No Motor Deficits, Normal Affect, Normal Mood, No Sensory Deficits Cerebellar Function: Normal Reflexes: Normal Skin: Dry, Normal Color, Warm Lymphatic: No Adenopathy Was a procedure done? Was a procedure done?: No Differential Diagnosis EXT Differential Diagnosis: Cellulitis, CHF, Deep Vein Thrombosis, Sprain, Gout, Strain X-Ray, Labs, Meds, VS Vital Signs Date Time Temp Pulse Resp B/P (MAP) Pulse Ox O2 Delivery O2 Flow Rate FiO2 05/17/24 12:58 98.9 85 18 129/81 (97) 95 Lab Test 05/17/24 14:14 Range/Units White Blood Count 7.1 4.4-10.8 10^3/uL Red Blood Count 5.39 4.5-5.90 10^6/uL Hemoglobin 14.8 13.5-17.5 g/dL Hematocrit 46.0 41.0-53.0 % Mean Corpuscular Volume 85.2 80.0-100.0 fL Mean Corpuscular Hemoglobin 27.4 L 28.0-32.0 pg Mean Corpuscular Hemoglobin Concent 32.1 32.0-36.0 g/dL Red Cell Distribution Width 18.4 H 11.8-14.3 % Platelet Count 168 140-450 10^3/uL Mean Platelet Volume 9.4 6.9-10.8 fL Neutrophils (%) (Auto) 77.8 37.0-80.0 % Lymphocytes (%) (Auto) 10.9 10.0-50.0 % Monocytes (%) (Auto) 10.6 0.0-12.0 % Eosinophils (%) (Auto) 0.1 0.0-7.0 % Basophils (%) (Auto) 0.6 0.0-2.0 % Neutrophils # (Auto) 5.5 1.6-8.6 10 ^3/uL Lymphocytes # (Auto) 0.8 0.4-5.4 10 ^3/uL Monocytes # (Auto) 0.8 0-1.3 10 ^3/uL Eosinophils # (Auto) 0 0-0.8 10 ^3/uL Basophils # (Auto) 0 0-0.2 10 ^3/uL Nucleated Red Blood Cells 0.2 % D-Dimer, Quantitative 4.12 H 0.0-0.49 mg/L FEU Sodium Level 136 136-145 mmol/L Potassium Level 4.1 3.5-5.1 mmol/L Chloride Level 97 L 98-107 mmol/L Carbon Dioxide Level 29 20-31 mmol/L Anion Gap 10 5-15 Blood Urea Nitrogen 38 H 9-23 mg/dL Creatinine 1.36 H 0.700-1.30 mg/dL Glomerular Filtration Rate Calc 58 >90 mL/min BUN/Creatinine Ratio 27.9 H 10.0-20.0 Serum Glucose 107 H 74-106 mg/dL Calcium Level 10.0 8.7-10.4 mg/dL Magnesium Level 2.4 1.6-2.6 mg/dL Total Bilirubin 4.4 H 0.2-1.0 mg/dL Aspartate Amino Transferase (AST) 176 H 13-40 U/L Alanine Aminotransferase (ALT) 117 H 7-40 U/L Alkaline Phosphatase 166 H 46-116 U/L B-Type Natriuretic Peptide > 5000.00 0-100 pg/mL Total Protein 6.2 5.7-8.2 g/dL Albumin 3.3 3.2-4.8 g/dL X-Ray, Labs, Meds, VS Comment This 63-year-old male presents secondary to shortness of breath and bilateral lower extremity edema. Patient endorses having history of CHF and previous on Lasix. He was currently on Bumetanide. This x-ray shows a possible pneumonia. However, the patient was profoundly elevated BNP. She also has elevated D- dimer. I am concerned the patient may have a pulmonary embolism. As such, a CTA of the chest was ordered. The patient was other findings include dehydrat ion, CHF, transaminitis, pulse hepatitis, possible pneumonia and possible PE. Time of 1ST Reevaluation: 13:29 Reevaluation 1ST: Unchanged Patient Education/Counseling: Diagnosis, Treatment, Prognosis Family Education/Counseling: No Family Present Additional Information I reviewed the following notes from patient's past medical encounters: The following tests were ordered, and results were reviewed by me: (Labs, XY, EKG): BNP, D-dimer, CXR, Magnesium, CMP, CBC Additional Information was gathered from interviewing the following independent historians: (Family, Other Providers, EMT): Paramedics I reviewed and agreed with the following test results read by other providers: (X-Ray, CT, US): radiologist I discussed treatment and results with medical personnel and: (Consultants, Family): None [place] [id number] Ph: [phone] DIAGNOSTIC IMAGING Diagnostic Imaging Report : [id number] Signed PATIENT: JOMAR GOFF ACCT: [id number] UNIT: [id number] : 1960 LOC: ER ROOM / BED: / AGE / SEX: 63 / M ADM STATUS: REG ER SERVICE [id number] ORDERING PHYSICIAN: JAYME RIVAS MD PROCEDURE(s): CXRP - CHEST PORTABLE REASON: cough ORDER NUMBER(s): [id number], ACCESSION NUMBER(s): [id number] CHEST RADIOGRAPH Indication: cough Technique: Single frontal view of the chest was obtained Comparison: XY CHEST PORTABLE on DOS: 03/17/24, XY CHEST XRAY 1 VIEW on DOS: 03/15/24, XY CHEST PORTABLE on DOS: 03/14/24 FINDINGS: Lines and Tubes: None Lungs: Consolidation right lower lobe which may represent pneumonia or pleural effusion. Pleura: No effusion. No pneumothorax. Cardiomediastinal contours: Stable cardiomegaly is noted. Bones: No acute osseous abnormality. IMPRESSION: 1. Consolidation right lower lobe may represent infiltrate or effusion. ATED BY: LISA DEL RIO Jr., DO DICTATED DATE/TIME: 05/17/241411 SIGNED BY: LISA DEL RIO Jr., SIGNED DATE/TIME: 05/17/241411 CC: Departure 1 Departure Time of Disposition: 15:45 Impression: Primary Impression: RADHA (acute kidney injury) Additional Impressions: Dehydration CHF (congestive heart failure) Hepatitis Transaminitis Pulmonary embolism Disposition: ADMITTED INPATIENT Condition: Serious Critical Care Note Critical Care Time?: No Stability Stability form required: No I personally scribed for JAYME RIVAS MD ([email or web address]) on 05/17/24 at 13:33. Electronically submitted by Rose Marie Carcamo ([facility]). I personally scribed for JAYME RIVAS MD ([email or web address]) on 05/17/24 at 14:35. Electronically submitted by Rose Marie Carcamo ([facility]). JAYME RIVAS MD May 17, 2024 13:33
--- NOTE | 2024-05-17 14:14 | DVH ---
CHEST RADIOGRAPH Indication: cough Technique: Single frontal view of the chest was obtained Comparison: XY CHEST PORTABLE on DOS: 03/17/24, XY CHEST XRAY 1 VIEW on DOS: 03/15/24, XY CHEST SANJEEV BLE on DOS: 03/14/24 FINDINGS: Lines and Tubes: None Lungs: Consolidation right lower lobe which may represent pneumonia or pleural effusion. Pleura: No effusion. No pneumothorax. Cardiomediastinal contours: Stable cardiomegaly is noted. Bones: No acute osseous abnormality. IMPRESSION: 1. Consolidation right lower lobe may represent infiltrate or effusion.
[2024-05-17 14:29] LABS: Basophils # (auto) 0 10 ^3/uL (0-0.2); Basophils % (auto) 0.6 % (0.0-2.0); Eosinophils # (auto) 0 10 ^3/uL (0-0.8); Eosinophils % (auto) 0.1 % (0.0-7.0); Hemoglobin 14.8 g/dL (13.5-17.5); Lymphocytes # (auto) 0.8 10 ^3/uL (0.4-5.4); Lymphocytes % (auto) 10.9 % (10.0-50.0); Mean Corpuscular Hemoglobin 27.4 pg (28.0-32.0); Mean Corpuscular Hgb Conc. 32.1 g/dL (32.0-36.0); Mean Corpuscular Volume 85.2 fL (80.0-100.0); Monocytes # (auto) 0.8 10 ^3/uL (0-1.3); Monocytes % (auto) 10.6 % (0.0-12.0); Neutrophils # (auto) 5.5 10 ^3/uL (1.6-8.6); Neutrophils % (auto) 77.8 % (37.0-80.0); Nucleated Red Blood Cells % 0.2 %; Platelet Count (auto) 168 10^3/uL (140-450); Red Blood Cells 5.39 10^6/uL (4.5-5.90); Red Cell Distribution Width 18.4 % (11.8-14.3); White Blood Cell 7.1 10^3/uL (4.4-10.8)
[2024-05-17 14:45] LABS: Albumin 3.3 g/dL (3.2-4.8); Anion Gap 10 (5-15); BUN/Creatinine Ratio 27.9 (10.0-20.0); Carbon Dioxide 29 mmol/L (20-31); Magnesium 2.4 mg/dL (1.6-2.6); Potassium 4.1 mmol/L (3.5-5.1)
[2024-05-17 14:46] LABS: Total Protein 6.2 g/dL (5.7-8.2)
[2024-05-17 14:53] LABS: Alanine Aminotransferase 117 U/L (7-40); Alkaline Phosphatase 166 U/L (46-116); Aspartate Aminotransferase 176 U/L (13-40); Bilirubin, Total 4.4 mg/dL (0.2-1.0); Blood Urea Nitrogen 38 mg/dL (9-23); Chloride 97 mmol/L (98-107); Glucose 107 mg/dL (74-106); Sodium 136 mmol/L (136-145)
[2024-05-17] MEDS: IOHEXOL 300 MG/ML 100ML BOTTLE IJ ONE (16:56)
== END 2024-05-17 17:34 | disposition left against medical advice (07) ==
LOC: ER 12:43 → EDBD 12:43 → ER 17:34
DX: I11.0 Hypertensive heart disease with heart failure (principal); I50.9 Heart failure, unspecified; I26.99 Other pulmonary embolism without acute cor pulmonale; N17.9 Acute kidney failure, unspecified; K75.9 Inflammatory liver disease, unspecified; E86.0 Dehydration; I48.91 Unspecified atrial fibrillation; F17.210 Nicotine dependence, cigarettes, uncomplicated; Z86.73 Personal history of transient ischemic attack (TIA), and cerebral infarction without residual deficits; Z79.899 Other long term (current) drug therapy
CPT/HCPCS: 36415; 71045; 80053; 83735; 83880; 85025; 85379

== ENCOUNTER 2024-05-18 21:13 | Inpatient (IN) | payer MEDICAID ==
[~2024-05-18] VITALS: Ht 185.4 cm; Wt 61.8 kg
[2024-05-18 23:44] VITALS: BP 135/76; PULSE 106; PULSE 108; RESP 20; TEMP 98; O2SAT 92
[2024-05-19] VITALS (9 sets, daily range): BP systolic 108–135; BP diastolic 56–76; PULSE 96–118; RESP 17–28; TEMP 97.3–98.4; O2SAT 90–100
[2024-05-19] MEDS ORDERED: FUROSEMIDE INJECTION 100 MG in SODIUM CHL 0.9% 100 ML IV SCH (00:15)
[2024-05-19 00:48] LABS: Basophils # (auto) 0.1 10 ^3/uL (0-0.2); Basophils % (auto) 0.7 % (0.0-2.0); Eosinophils # (auto) 0 10 ^3/uL (0-0.8); Hematocrit 47.2 % (41.0-53.0); Hemoglobin 15.2 g/dL (13.5-17.5); Lymphocytes # (auto) 0.5 10 ^3/uL (0.4-5.4); Mean Corpuscular Hemoglobin 27.6 pg (28.0-32.0); Mean Corpuscular Hgb Conc. 32.2 g/dL (32.0-36.0); Mean Corpuscular Volume 85.8 fL (80.0-100.0); Monocytes # (auto) 0.7 10 ^3/uL (0-1.3); Monocytes % (auto) 7.9 % (0.0-12.0); Neutrophils # (auto) 7.6 10 ^3/uL (1.6-8.6); Neutrophils % (auto) 85.4 % (37.0-80.0); Nucleated Red Blood Cells % 0.3 %; Platelet Count (auto) 151 10^3/uL (140-450); Red Cell Distribution Width 18.9 % (11.8-14.3); White Blood Cell 8.9 10^3/uL (4.4-10.8)
[2024-05-19 01:00] LABS: Potassium 4.1 mmol/L (3.5-5.1)
[2024-05-19 01:01] LABS: Anion Gap 13 (5-15); Carbon Dioxide 25 mmol/L (20-31)
[2024-05-19 01:02] LABS: Calcium 10.2 mg/dL (8.7-10.4); Chloride 97 mmol/L (98-107); Sodium 135 mmol/L (136-145)
[2024-05-19 01:06] LABS: BUN/Creatinine Ratio 26.9 (10.0-20.0); Glucose 101 mg/dL (74-106)
[2024-05-19 01:24] LABS: Blood Urea Nitrogen 42 mg/dL (9-23)
[2024-05-19] MEDS: FUROSEMIDE INJECTION 100 MG in SODIUM CHL 0.9% 100 ML IV SCH (01:37)
[2024-05-19] MEDS: FUROSEMIDE INJECTION 10 ML ONE (01:42)
[2024-05-19 10:28] LABS: Urine Bacteria None Seen /hpf (None Seen)
[2024-05-19 10:53] LABS: Urine Blood Negative /uL (Negative); Urine Clarity Turbid (Clear); Urine Color Yellow (Yellow); Urine Hyaline Cast MANY /lpf (0 - 2); Urine Mucus FEW (None Seen); Urine Protein, UAD 1+ (Negative); Urine Specific Gravity 1.012 (1.001-1.035); Urine Squamous Epithelial Cell FEW /hpf (<5); Urine Urobilinogen 3 mg/dL (Negative); Urine WBC 3 /hpf (0 - 3)
[2024-05-19] MEDS: ENOXAPARIN SOD 40 MG/0.4 ML SYRINGE SC SCH (11:49)
[2024-05-19] MEDS: POTASSIUM CHL 20 Meq TABLET PO SCH (11:50)
[2024-05-19] MEDS: cefTRIAXone 1GM/50ML D5W 50 ML IV SCH (11:51)
[2024-05-19] MEDS: DIGOXIN 0.125 MG TAB PO SCH (11:51)
--- NOTE | 2024-05-19 14:04 | DVH ---
INDICATION: r/o pe COMPARISON: No CTA's of the chest for comparison TECHNIQUE: Multidetector CTA of the chest was performed of the chest with 100 cc of intravenous contr ast. PULMONARY ANGIOGRAPHY PROTOCOL was utilized using a bolus-tracking technique centered on the jabari n pulmonary artery. Axial, coronal and sagittal multiplanar and MIP reformats were performed. Radiation Dose Information: CT Dose: CTDI volume is 44.4 mGy. Dose-length product is 1033.61 mGy*cm Omnipaque 350: 100 mL The dose indicators for CT are the volume Computed Tomography (CT) Dose Index (CTDIvol) and the Dose Length Product (DLP), and are measured in units of mGy and mGy-cm, respectively. These indicators are not patient dose, but values generated from the CT scanner acquisition factors. The report includes radiation exposure data for exposures received during this examination. Findings: Pulmonary artery: Normal caliber of the pulmonary artery. Large filling defect occluding the right pulmonary artery identified and ( series 2 images 127- 136) Lower neck: Normal thyroid. Lungs: No focal consolidation, pulmonary mass, or suspicious pulmonary nodule. Large right pleural ef fusion. Heart/Vascular Structures: Normal heart size. Normal caliber and enhancement of the aorta. Lymph Nodes: No adenopathy Pleura: No pleural effusion or significant pneumothorax. Musculoskeletal: No acute osseous abnormality. Upper abdomen: Limited portions of the upper abdomen are unremarkable. IMPRESSION: 1. Large filling defect right pulmonary artery consistent with pulmonary embolus. No film findings of pulmonary artery hypertension. No pulmonary emboli noted on the left. 2. Findings are also suggestive of right heart strain. 3. Large right pleural effusion. CRITICAL FINDINGS Critical Result: LEFT PULMONARY EMBOLUS large left pleural effusion. Findings discussed with ISSAC Arellano at 05/19/2024 01:52 PM, and acknowledged receipt and understand ing of the findings. Have called rad environmental engineering assistant X2 with no success. (time 1401) Discussed with Dr. Conn possibility of the right hilar or perihilar mass blocking the right pulmonary artery. Recommended follow-up. HS:Marcelle Tracey. .
--- NOTE | 2024-05-19 14:04 | DVH ---
CLINICAL INFORMATION: 63 years old, Male; Shortness of breath. TECHNIQUE: Single AP portable chest radiograph was obtained. COMPARISON: XY CHEST PORTABLE on DOS: 05/17/24, XY CHEST PORTABLE on DOS: 03/17/24, XY CHEST XRAY 1 V IEW on DOS: 03/15/24 FINDINGS: Large right pleural effusion with overlying atelectasis and/or consolidation, minimally changed. Ill- defined opacities in the left lung base appear slightly increased. Unchanged cardiomegaly. Prominenc e of the pulmonary vasculature also noted. No pneumothorax. No other significant interval change. IMPRESSION: 1. Unchanged large right pleural effusion with overlying atelectasis and/or consolidation. 2. Ill-defined opacities in the left lung base appear increased, may be due to atelectasis and/or dev eloping consolidation. 3. Cardiomegaly and prominence of the pulmonary vasculature suggesting a degree of pulmonary vascular congestion in the appropriate clinical setting.
[2024-05-19] MEDS ORDERED: HEPARIN DRIP/D5W 100UNITS/ML 250 ML IV SCH ×2 (15:00→22:00)
[2024-05-19] MEDS: HEPARIN SODIUM (PORCINE) 5000 UNITS/ML 1ML VIAL IV ONE ×2 (16:15→16:53)
[2024-05-19 16:28] LABS: Basophils # (auto) 0.1 10 ^3/uL (0-0.2); Basophils % (auto) 0.9 % (0.0-2.0); Eosinophils # (auto) 0 10 ^3/uL (0-0.8); Hematocrit 43.8 % (41.0-53.0); Hemoglobin 14.2 g/dL (13.5-17.5); Lymphocytes # (auto) 0.6 10 ^3/uL (0.4-5.4); Lymphocytes % (auto) 6.1 % (10.0-50.0); Mean Corpuscular Hemoglobin 27.5 pg (28.0-32.0); Mean Corpuscular Hgb Conc. 32.4 g/dL (32.0-36.0); Mean Corpuscular Volume 84.9 fL (80.0-100.0); Monocytes # (auto) 0.7 10 ^3/uL (0-1.3); Monocytes % (auto) 7.8 % (0.0-12.0); Neutrophils % (auto) 85.2 % (37.0-80.0); Nucleated Red Blood Cells % 0.2 %; Platelet Count (auto) 137 10^3/uL (140-450); Red Blood Cells 5.16 10^6/uL (4.5-5.90); Red Cell Distribution Width 18.5 % (11.8-14.3); White Blood Cell 9.3 10^3/uL (4.4-10.8)
--- NOTE | 2024-05-19 16:39 | DVH ---
Procedure: US BiLat Lower DVT Study Date and Requested Time: 05/19/2024 03:20 PM History: bilateral lower extremity swelling Comparison: US LT LOWER DVT on DOS: 03/17/24 Technique: Multiple high resolution paiz-scale images with and without compression obtained of the bi lateral lower extremity veins, including the common femoral vein, deep femoral vein, proximal mid and distal superficial femoral vein, and popliteal vein. Additional limited images of the greater saphen ous vein also obtained. Augmentation performed as indicated. Color and spectral doppler flow images o btained as indicated. Findings: No visible intraluminal venous thrombus. No evidence of incompressibility or abnormal color or spectr al Doppler flow visualized in the bilateral lower extremity veins including, the common femoral vein, deep femoral vein, proximal mid and distal superficial femoral vein, and popliteal vein. Greater sap henous vein grossly unremarkable. Soft tissue edema bilateral lower extremities are noted. Impression: No sonographic evidence of bilateral lower extremity deep venous thrombosis.
[2024-05-19 16:43] LABS: INR 2.18 (0.9-1.15); Partial Thromboplastin Time 36.8 SEC (24.5-34.5); Prothrombin Time 21.8 sec (9.3-11.8)
[2024-05-19] MEDS: HEPARIN DRIP/D5W 100UNITS/ML 250 ML IV SCH (17:00)
[2024-05-19] MEDS ORDERED: HEPARIN SODIUM (PORCINE) 5000 UNITS/ML 1ML VIAL IV ONE (22:00)
[2024-05-19 23:41] LABS: INR 2.65 (0.9-1.15); Prothrombin Time 26.1 sec (9.3-11.8)
[2024-05-20] LABS: Partial Thromboplastin Time > 139.0 SEC (24.5-34.5)
[2024-05-20] MEDS: HEPARIN DRIP/D5W 100UNITS/ML 250 ML IV SCH ×3 (01:24→16:58)
[2024-05-20] MEDS: HYDROcodone-ACET 10/325MG TAB PO PRN (01:26)
[2024-05-20 07:41] LABS: Basophils # (auto) 0.1 10 ^3/uL (0-0.2); Basophils % (auto) 0.5 % (0.0-2.0); Eosinophils # (auto) 0 10 ^3/uL (0-0.8); Hematocrit 44.9 % (41.0-53.0); Hemoglobin 14.4 g/dL (13.5-17.5); Lymphocytes # (auto) 0.8 10 ^3/uL (0.4-5.4); Mean Corpuscular Hemoglobin 27.6 pg (28.0-32.0); Mean Corpuscular Hgb Conc. 32.1 g/dL (32.0-36.0); Mean Corpuscular Volume 85.9 fL (80.0-100.0); Monocytes # (auto) 0.9 10 ^3/uL (0-1.3); Monocytes % (auto) 8.1 % (0.0-12.0); Neutrophils # (auto) 9.5 10 ^3/uL (1.6-8.6); Neutrophils % (auto) 84.4 % (37.0-80.0); Nucleated Red Blood Cells % 0.3 %; Platelet Count (auto) 133 10^3/uL (140-450); Red Blood Cells 5.22 10^6/uL (4.5-5.90); Red Cell Distribution Width 18.4 % (11.8-14.3); White Blood Cell 11.2 10^3/uL (4.4-10.8)
[2024-05-20 08:00] VITALS: PULSE 104
[2024-05-20 08:03] LABS: INR 2.7 (0.9-1.15); Prothrombin Time 26.6 sec (9.3-11.8)
[2024-05-20 08:44] LABS: Partial Thromboplastin Time 121.6 SEC (24.5-34.5)
[2024-05-20 09:00] VITALS: BP 140/64; PULSE 63; RESP 12; TEMP 98.2; O2SAT 98
[2024-05-20 12:56] VITALS: BP 128/75; PULSE 100; RESP 20; TEMP 98.5; O2SAT 100
--- NOTE | 2024-05-20 13:42 | DVHPN2 ---
Progress Note - Dictate Date Seen: May 18, 2024 Medical Necessity Reason Pt with a Central, PICC or Fol: No Subjective PT WITH SS COMPLEX INCRESEING SOB HARVEY LE EDEMA HFrEF CHRONIC AND ACUTE NOW WITH HEMOPTYSIS TACHYCARDIA CTA LUNG C/W PE ACUTE vital signs Vital Sign Date Time Temp Pulse Resp B/P (MAP) Pulse Ox O2 Delivery O2 Flow Rate FiO2 05/20/24 12:56 98.5 100 20 128/75 (92) 100 98.5 05/20/24 08:00 Nasal Cannula* 4 36 Total Intake and Output 05/19/24 05/19/24 05/20/24 15:00 23:00 07:00 Intake Total 200 ml 196 ml 178 ml Output Total 100 ml Balance 200 ml 196 ml 78 ml medications Current Medications Medications Dose Ordered Sig/Amy Route Start Time Stop Time Status Last Admin Dose Admin Digoxin 0.125 mg DAILY PO 05/19/24 10:00 05/20/24 09:08 0.125 MG Ceftriaxone Sodium 50 ml @ 100 mls/hr DAILY@09 IV 05/19/24 09:00 05/20/24 09:07 100 MLS/HR Acetaminophen/ Hydrocodone Bitart 1 tab Q8HP PRN PO 05/19/24 14:30 05/20/24 01:26 1 TAB Heparin Sodium/ Dextrose 250 ml @ 12 mls/hr [id number] IV 05/20/24 09:30 05/20/24 10:29 12 MLS/HR objective PUL DIFF RHONCHI JVD ANGLE OF THE JAW CV RR PMI DIFFUSE EXT 3+ EDEMA laboratory and microbiology Laboratory Tests 05/20/24 07:10 05/19/24 00:35 Test 05/19/24 00:35 Range/Units Serum Glucose 101 74-106 mg/dL Problem List SS COMPLEX INCRESEING SOB HARVEY LE EDEMA HFrEF CHRONIC AND ACUTE EF < 20% NOW WITH HEMOPTYSIS TACHYCARDIA CTA LUNG C/W PE ACUTE Assessment/Plan ECHO EF <20% LAE NERISSA SEVERE MR MOD TR MILD AI LVE MILD AV CALCIFICATION DILATED AORTIC ROOT ( 4.9cm) MOD PAH CXR LARGE RIGHT EFFUSION CONSOLIDATION CTA LUNG 1. Large filling defect right pulmonary artery consistent with pulmonary embolus. No film findings of pulmonary artery hypertension. No pulmonary emboli noted on the left. 2. Findings are also suggestive of right heart strain. 3. Large right pleural effusion. HEPARIN DRIP\ LASIX DRIP WILL START ORAL ANTICOAGULATION IN 48 HOURS ABX Plan discussed with: Patient Critical Care Time(min): 35 ISSAC SHAH MD May 20, 2024 13:42
--- NOTE | 2024-05-20 13:44 | DVHPN2 ---
Progress Note - Dictate Date Seen: May 20, 2024 Medical Necessity Reason Pt with a Central, PICC or Fol: No Subjective PT WITH SS COMPLEX INCRESEING SOB HARVEY LE EDEMA HFrEF CHRONIC AND ACUTE NOW WITH HEMOPTYSIS TACHYCARDIA CTA LUNG C/W PE ACUTE vital signs Vital Sign Date Time Temp Pulse Resp B/P (MAP) Pulse Ox O2 Delivery O2 Flow Rate FiO2 05/20/24 12:56 98.5 100 20 128/75 (92) 100 98.5 05/20/24 08:00 Nasal Cannula* 4 36 Total Intake and Output 05/19/24 05/19/24 05/20/24 15:00 23:00 07:00 Intake Total 200 ml 196 ml 178 ml Output Total 100 ml Balance 200 ml 196 ml 78 ml medications Current Medications Medications Dose Ordered Sig/Amy Route Start Time Stop Time Status Last Admin Dose Admin Digoxin 0.125 mg DAILY PO 05/19/24 10:00 05/20/24 09:08 0.125 MG Ceftriaxone Sodium 50 ml @ 100 mls/hr DAILY@09 IV 05/19/24 09:00 05/20/24 09:07 100 MLS/HR Acetaminophen/ Hydrocodone Bitart 1 tab Q8HP PRN PO 05/19/24 14:30 05/20/24 01:26 1 TAB Heparin Sodium/ Dextrose 250 ml @ 12 mls/hr [id number] IV 05/20/24 09:30 05/20/24 10:29 12 MLS/HR objective PUL DIFF RHONCHI JVD ANGLE OF THE JAW CV RR PMI DIFFUSE EXT 3+ EDEMA laboratory and microbiology Laboratory Tests 05/20/24 07:10 05/19/24 00:35 Test 05/19/24 00:35 Range/Units Serum Glucose 101 74-106 mg/dL Problem List SS COMPLEX INCRESEING SOB HARVEY LE EDEMA HFrEF CHRONIC AND ACUTE EF < 20% NOW WITH HEMOPTYSIS TACHYCARDIA CTA LUNG C/W PE ACUTE Assessment/Plan ECHO EF <20% LAE NERISSA SEVERE MR MOD TR MILD AI LVE MILD AV CALCIFICATION DILATED AORTIC ROOT ( 4.9cm) MOD PAH CXR LARGE RIGHT EFFUSION CONSOLIDATION CTA LUNG 1. Large filling defect right pulmonary artery consistent with pulmonary embolus. No film findings of pulmonary artery hypertension. No pulmonary emboli noted on the left. 2. Findings are also suggestive of right heart strain. 3. Large right pleural effusion. HEPARIN DRIP\ LASIX DRIP WILL START ORAL ANTICOAGULATION IN 48 HOURS ABX Plan discussed with: Patient Critical Care Time(min): 35 ISSAC SHAH MD May 20, 2024 13:44
[2024-05-20] MEDS: FUROSEMIDE INJECTION 100 MG in SODIUM CHL 0.9% 100 ML IV SCH (15:21)
[2024-05-20 16:38] LABS: INR 2.42 (0.9-1.15)
[2024-05-20 17:24] VITALS: BP 127/68; PULSE 94; RESP 19; TEMP 97.5; O2SAT 100
[2024-05-20 20:00] VITALS: PULSE 81
[2024-05-20 21:00] VITALS: BP 111/64; PULSE 96; RESP 20; TEMP 97.5; O2SAT 100
[2024-05-20 23:34] LABS: INR 2.17 (0.9-1.15); Partial Thromboplastin Time 48.9 SEC (24.5-34.5); Prothrombin Time 21.7 sec (9.3-11.8)
[2024-05-21] VITALS (7 sets, daily range): BP systolic 119–135; BP diastolic 68–89; PULSE 93–117; RESP 15–20; TEMP 96.1–97.6; O2SAT 94–100
[2024-05-21] MEDS: HEPARIN DRIP/D5W 100UNITS/ML 250 ML IV SCH ×2 (00:58→13:09)
[2024-05-21 07:09] LABS: Basophils # (auto) 0 10 ^3/uL (0-0.2); Basophils % (auto) 0.1 % (0.0-2.0); Eosinophils # (auto) 0 10 ^3/uL (0-0.8); Eosinophils % (auto) 0.1 % (0.0-7.0); Hemoglobin 14.6 g/dL (13.5-17.5); Lymphocytes # (auto) 0.7 10 ^3/uL (0.4-5.4); Lymphocytes % (auto) 6.4 % (10.0-50.0); Mean Corpuscular Hemoglobin 27.8 pg (28.0-32.0); Mean Corpuscular Hgb Conc. 31.1 g/dL (32.0-36.0); Mean Corpuscular Volume 89.6 fL (80.0-100.0); Monocytes # (auto) 0.8 10 ^3/uL (0-1.3); Monocytes % (auto) 6.9 % (0.0-12.0); Neutrophils # (auto) 9.7 10 ^3/uL (1.6-8.6); Neutrophils % (auto) 86.5 % (37.0-80.0); Nucleated Red Blood Cells % 0.3 %; Platelet Count (auto) 144 10^3/uL (140-450); Red Blood Cells 5.25 10^6/uL (4.5-5.90); White Blood Cell 11.2 10^3/uL (4.4-10.8)
[2024-05-21] MEDS: SPIRONOLACTONE 25 MG TAB PO SCH (09:05)
[2024-05-21 12:35] LABS: INR 1.91 (0.9-1.15); Partial Thromboplastin Time 45.8 SEC (24.5-34.5); Prothrombin Time 19.3 sec (9.3-11.8)
[2024-05-21 19:32] LABS: INR 1.95 (0.9-1.15); Prothrombin Time 19.7 sec (9.3-11.8)
--- NOTE | 2024-05-21 20:04 | DVH ---
BILATERAL Lower Extremity Arterial Duplex Date: 05/21/2024 07:18 PM Clinical History: claudication Comparison: None Technique: Duplex Doppler evaluation including color Doppler and spectral/pulsed waveform analysis of the lower extremity arteries was performed. Finding: RIGHT: Peak systolic velocities are as follows: CONCRETE SMOOTHER 107 cm/s Deep femoral 52 cm/s SFA proximal 87 cm/s SFA mid-portion 77 cm/s SFA distal 33 cm/s Popliteal 85 cm/s Posterior tibial 36 cm/s Dorsalis pedis is not visualized The dorsalis pedis artery is not visualized with monophasic waveform within the posterior tibial nayana ry. Otherwise, triphasic and biphasic waveforms throughout the remainder of the right lower extremit y arteries. LEFT: Peak systolic velocities are as follows: CONCRETE SMOOTHER 92 cm/s Deep femoral 65 cm/s SFA proximal 119 cm/s SFA mid-portion 63 cm/s SFA distal 60 cm/s Popliteal 71 cm/s Posterior tibial 55 cm/s Dorsalis pedis 58 cm/s Triphasic waveforms throughout the left lower extremity arteries. There is bilateral lower extremity soft tissue edema. IMPRESSION: Right dorsalis pedis artery is not visualized. Can not exclude occlusion. There is about 50% stenosis of the right popliteal artery based on peak systolic velocities. Monophasic waveform within the right posterior tibial artery which may be from vasodilation/atheroscl erotic disease. Soft tissue edema of bilateral lower extremities is noted. REFERENCE VALUES, [facility] ([facility]) vascular Imaging Lab Criteria: Peak systolic velocity ranges (in cm/sec) are as follows: <150 cm/s - <20 % stenosis 150-200 cm/s - 20-49% stenosis 200-300 cm/s - 50-75% stenosis >300 cm/s -> 75% stenosis
[2024-05-22 01:21] LABS: INR 1.79 (0.9-1.15); Prothrombin Time 18.2 sec (9.3-11.8)
[2024-05-22 01:26] LABS: Partial Thromboplastin Time 89.3 SEC (24.5-34.5)
[2024-05-22] MEDS: HEPARIN DRIP/D5W 100UNITS/ML 250 ML IV SCH (02:43)
[2024-05-22 07:30] LABS: Basophils # (auto) 0 10 ^3/uL (0-0.2); Basophils % (auto) 0.2 % (0.0-2.0); Eosinophils # (auto) 0 10 ^3/uL (0-0.8); Eosinophils % (auto) 0.4 % (0.0-7.0); Hemoglobin 14.6 g/dL (13.5-17.5); Lymphocytes # (auto) 0.6 10 ^3/uL (0.4-5.4); Lymphocytes % (auto) 5.9 % (10.0-50.0); Mean Corpuscular Hemoglobin 27.2 pg (28.0-32.0); Mean Corpuscular Hgb Conc. 31.8 g/dL (32.0-36.0); Mean Corpuscular Volume 85.6 fL (80.0-100.0); Monocytes # (auto) 0.7 10 ^3/uL (0-1.3); Monocytes % (auto) 7.1 % (0.0-12.0); Neutrophils # (auto) 8.4 10 ^3/uL (1.6-8.6); Neutrophils % (auto) 86.4 % (37.0-80.0); Nucleated Red Blood Cells % 0.2 %; Platelet Count (auto) 119 10^3/uL (140-450); Red Blood Cells 5.38 10^6/uL (4.5-5.90); Red Cell Distribution Width 18.3 % (11.8-14.3); White Blood Cell 9.7 10^3/uL (4.4-10.8)
[2024-05-22 07:36] LABS: INR 1.74 (0.9-1.15); Partial Thromboplastin Time 58.4 SEC (24.5-34.5); Prothrombin Time 17.7 sec (9.3-11.8)
[2024-05-22 08:00] VITALS: PULSE 91; RESP 20; O2SAT 95
[2024-05-22 09:00] VITALS: BP 131/66; PULSE 99; RESP 18; TEMP 97.7; O2SAT 98
[2024-05-22 13:00] VITALS: BP 166/75; PULSE 94; RESP 17; TEMP 96; O2SAT 95
[2024-05-22 13:36] LABS: INR 1.72 (0.9-1.15); Partial Thromboplastin Time 58.2 SEC (24.5-34.5); Prothrombin Time 17.5 sec (9.3-11.8)
--- NOTE | 2024-05-22 14:18 | ECG ---
[facility] Test Date: 2024-05-19 Test Time: 16:17:42 Pat Name: JOMAR GOFF Department: Room: [facility] B Gender: M Cupola Charger: VANGIE : 1960 Requested By: ISSAC SHAH Order Number: [id number] Reading MD: Aubrie Raymundo Measurements Intervals [place] Rate: 103 P: 37 OR: 136 QRS: -35 QRSD: 108 T: 107 QT: 359 QTc: 470 Interpretive Statements Sinus tachycardia Left atrial enlargement Left ventricular hypertrophy Possible Anterior infarct, old Nonspecific T abnormalities, lateral leads Electronically Signed On 05-22-2024 20:51:38 PST by Aubrie Raymundo Please click the below link to view image of tracing.
[2024-05-22 17:00] VITALS: BP 152/71; PULSE 107; RESP 17; TEMP 96.2; O2SAT 97
[2024-05-22 19:48] LABS: INR 1.74 (0.9-1.15); Partial Thromboplastin Time 54.8 SEC (24.5-34.5); Prothrombin Time 17.7 sec (9.3-11.8)
[2024-05-22 20:00] VITALS: PULSE 106; RESP 20
[2024-05-22 21:00] VITALS: BP 134/93; PULSE 115; RESP 19; TEMP 97.8; O2SAT 95
[2024-05-23] VITALS (7 sets, daily range): BP systolic 113–150; BP diastolic 69–83; PULSE 93–113; RESP 15–20; TEMP 97.5–98.1; O2SAT 95–98
[2024-05-23 07:16] LABS: Basophils # (auto) 0 10 ^3/uL (0-0.2); Basophils % (auto) 0.4 % (0.0-2.0); Eosinophils # (auto) 0 10 ^3/uL (0-0.8); Eosinophils % (auto) 0.1 % (0.0-7.0); Hematocrit 47.9 % (41.0-53.0); Hemoglobin 15.2 g/dL (13.5-17.5); Lymphocytes # (auto) 0.4 10 ^3/uL (0.4-5.4); Lymphocytes % (auto) 5.2 % (10.0-50.0); Mean Corpuscular Hemoglobin 27.4 pg (28.0-32.0); Mean Corpuscular Hgb Conc. 31.6 g/dL (32.0-36.0); Mean Corpuscular Volume 86.7 fL (80.0-100.0); Monocytes # (auto) 0.8 10 ^3/uL (0-1.3); Monocytes % (auto) 9.1 % (0.0-12.0); Neutrophils # (auto) 7.1 10 ^3/uL (1.6-8.6); Neutrophils % (auto) 85.2 % (37.0-80.0); Nucleated Red Blood Cells % 0.5 %; Platelet Count (auto) 119 10^3/uL (140-450); Red Blood Cells 5.53 10^6/uL (4.5-5.90); Red Cell Distribution Width 18.6 % (11.8-14.3); White Blood Cell 8.4 10^3/uL (4.4-10.8)
--- NOTE | 2024-05-23 11:32 | DVHPN2 ---
Progress Note - Dictate Date Seen: May 21, 2024 Medical Necessity Reason Pt with a Central, PICC or Fol: Yes The following are medically ne: Burk Catheter Subjective PT WITH SS COMPLEX INCRESEING SOB HARVEY LE EDEMA HFrEF CHRONIC AND ACUTE NOW WITH HEMOPTYSIS TACHYCARDIA CTA LUNG C/W PE ACUTE vital signs Vital Sign Date Time Temp Pulse Resp B/P (MAP) Pulse Ox O2 Delivery O2 Flow Rate FiO2 05/23/24 10:00 93 05/23/24 09:00 97.5 15 113/83 (93) 96 97.5 05/23/24 08:00 Nasal Cannula* 4 36 Total Intake and Output 05/22/24 05/22/24 05/23/24 15:00 23:00 07:00 Intake Total 50 ml 1636 ml 200 ml Output Total 550 ml 450 ml Balance 50 ml 1086 ml -250 ml medications Current Medications Medications Dose Ordered Sig/Amy Route Start Time Stop Time Status Last Admin Dose Admin Digoxin 0.125 mg DAILY PO 05/19/24 10:00 05/22/24 10:01 0.125 MG Ceftriaxone Sodium 50 ml @ 100 mls/hr DAILY@09 IV 05/19/24 09:00 05/23/24 09:29 100 MLS/HR Acetaminophen/ Hydrocodone Bitart 1 tab Q8HP PRN PO 05/19/24 14:30 05/22/24 22:26 1 TAB Furosemide 100 mg/ Sodium Chloride 110 ml @ 11 mls/hr Q10H IV 05/20/24 13:45 05/23/24 02:38 11 MLS/HR Spironolactone 25 mg DAILY PO 05/21/24 10:00 05/22/24 10:01 25 MG Heparin Sodium/ Dextrose 250 ml @ 12 mls/hr [id number] IV 05/22/24 02:15 05/23/24 04:16 12 MLS/HR objective PUL DIFF RHONCHI JVD ANGLE OF THE JAW CV RR PMI DIFFUSE EXT 3+ EDEMA laboratory and microbiology Laboratory Tests 05/23/24 06:15 05/19/24 00:35 Test 05/19/24 00:35 Range/Units Serum Glucose 101 74-106 mg/dL Problem List SS COMPLEX INCRESEING SOB HARVEY LE EDEMA HFrEF CHRONIC AND ACUTE EF < 20% NOW WITH HEMOPTYSIS TACHYCARDIA CTA LUNG C/W PE ACUTE Assessment/Plan ECHO EF <20% LAE NERISSA SEVERE MR MOD TR MILD AI LVE MILD AV CALCIFICATION DILATED AORTIC ROOT ( 4.9cm) MOD PAH CXR LARGE RIGHT EFFUSION CONSOLIDATION CTA LUNG 1. Large filling defect right pulmonary artery consistent with pulmonary embolus. No film findings of pulmonary artery hypertension. No pulmonary emboli noted on the left. 2. Findings are also suggestive of right heart strain. 3. Large right pleural effusion. HEPARIN DRIP\ LASIX DRIP WILL START ORAL ANTICOAGULATION IN 48 HOURS ABX Dietary Evaluation Review Comments: 1. consider Renal Specific 70g protein restriction witn 2GNa, 3K, low Phos, if no diaylsis needed. 2. consider Renal Standard 2gn, 3K, low phosphate diet if Pt is on dialysis. 3. encourage and monitor po intake to meet 75% of his needs. Expected Outcomes/Goals: avoid uremic symptoms, gradual healed wounds. Plan discussed with: Patient ISSAC SHAH MD May 23, 2024 11:32
--- NOTE | 2024-05-23 11:35 | DVHPN2 ---
Progress Note - Dictate Date Seen: May 22, 2024 Medical Necessity Reason Pt with a Central, PICC or Fol: Yes The following are medically ne: Burk Catheter Subjective PT WITH SS COMPLEX INCRESEING SOB HARVEY LE EDEMA HFrEF CHRONIC AND ACUTE NOW WITH HEMOPTYSIS TACHYCARDIA CTA LUNG C/W PE ACUTE vital signs Vital Sign Date Time Temp Pulse Resp B/P (MAP) Pulse Ox O2 Delivery O2 Flow Rate FiO2 05/23/24 10:00 93 05/23/24 09:00 97.5 15 113/83 (93) 96 97.5 05/23/24 08:00 Nasal Cannula* 4 36 Total Intake and Output 05/22/24 05/22/24 05/23/24 15:00 23:00 07:00 Intake Total 50 ml 1636 ml 200 ml Output Total 550 ml 450 ml Balance 50 ml 1086 ml -250 ml medications Current Medications Medications Dose Ordered Sig/Amy Route Start Time Stop Time Status Last Admin Dose Admin Digoxin 0.125 mg DAILY PO 05/19/24 10:00 05/22/24 10:01 0.125 MG Ceftriaxone Sodium 50 ml @ 100 mls/hr DAILY@09 IV 05/19/24 09:00 05/23/24 09:29 100 MLS/HR Acetaminophen/ Hydrocodone Bitart 1 tab Q8HP PRN PO 05/19/24 14:30 05/22/24 22:26 1 TAB Furosemide 100 mg/ Sodium Chloride 110 ml @ 11 mls/hr Q10H IV 05/20/24 13:45 05/23/24 02:38 11 MLS/HR Spironolactone 25 mg DAILY PO 05/21/24 10:00 05/22/24 10:01 25 MG Heparin Sodium/ Dextrose 250 ml @ 12 mls/hr [id number] IV 05/22/24 02:15 05/23/24 04:16 12 MLS/HR objective PUL DIFF RHONCHI JVD ANGLE OF THE JAW CV RR PMI DIFFUSE EXT 3+ EDEMA laboratory and microbiology Laboratory Tests 05/23/24 06:15 05/19/24 00:35 Test 05/19/24 00:35 Range/Units Serum Glucose 101 74-106 mg/dL Problem List SS COMPLEX INCRESEING SOB HARVEY LE EDEMA HFrEF CHRONIC AND ACUTE EF < 20% NOW WITH HEMOPTYSIS TACHYCARDIA CTA LUNG C/W PE ACUTE Assessment/Plan ECHO EF <20% LAE NERISSA SEVERE MR MOD TR MILD AI LVE MILD AV CALCIFICATION DILATED AORTIC ROOT ( 4.9cm) MOD PAH CXR LARGE RIGHT EFFUSION CONSOLIDATION CTA LUNG 1. Large filling defect right pulmonary artery consistent with pulmonary embolus. No film findings of pulmonary artery hypertension. No pulmonary emboli noted on the left. 2. Findings are also suggestive of right heart strain. 3. Large right pleural effusion. HEPARIN DRIP\ LASIX DRIP WILL START ORAL ANTICOAGULATION IN 48 HOURS ABX LE ARTERIAL DOPPLER NO SIGNIFICANT DISEASE FOR LIMB RISK DC HEPARIN START ELIQIS Dietary Evaluation Review Comments: 1. consider Renal Specific 70g protein restriction witn 2GNa, 3K, low Phos, if no diaylsis needed. 2. consider Renal Standard 2gn, 3K, low phosphate diet if Pt is on dialysis. 3. encourage and monitor po intake to meet 75% of his needs. Expected Outcomes/Goals: avoid uremic symptoms, gradual healed wounds. Plan discussed with: Patient ISSAC SHAH MD May 23, 2024 11:35
[2024-05-23] MEDS: APIXABAN 5 MG TAB PO SCH (12:30)
[2024-05-23] MEDS ORDERED: PATIENTS OWN MEDICATION (ELIQUIS 10 MG) PO SCH (22:00)
[2024-05-24] VITALS (17 sets, daily range): BP systolic 132–144; BP diastolic 61–81; PULSE 82–103; RESP 12–26; TEMP 97–98.6; O2SAT 90–99
--- NOTE | 2024-05-24 07:18 | DVH ---
CLINICAL INFORMATION: 63 years old, Male; loss of consciousness. TECHNIQUE: Axial imaging was obtained through the brain without contrast. Coronal and sagittal refor matted images were obtained, reviewed, and stored. Images were reviewed in brain and bone windows. A ll CT scans at this medical facility are performed using dose modulation techniques as appropriate to a performed exam including the following: Automated exposure control was utilized; adjustment of the MA and/or KV according to patient size; and use of iterative reconstruction technique. CTDIvol = 48.3 mGy DLP = 933.22 mGy-cm COMPARISON: None FINDINGS: There is no acute intracranial hemorrhage or extraaxial fluid collection. No mass effect o r midline shift. There is a moderate sized focal area of hypoattenuation in the left frontoparietal r egion, likely encephalomalacia from prior infarct, with chronic appearance scattered areas of hypoatt enuation are seen in the periventricular and subcortical white matter, which are nonspecific but most likely sequelae of small vessel ischemic disease.The ventricles and sulci are within normal limits i n size for age. Basal cisterns are patent. The calvarium is unremarkable. Paranasal sinuses and m astoid air cells are clear. IMPRESSION: 1. No CT evidence of acute intracranial abnormality. 2. 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, 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, likely chroni c. Correlate with clinical findings. 3. Additional nonacute findings as described above.
--- NOTE | 2024-05-24 07:26 | DVH ---
CLINICAL INFORMATION: 63 years old, Male; ALOC. TECHNIQUE: Single AP portable chest radiograph was obtained. COMPARISON: XY CHEST XRAY 1 VIEW on DOS: 05/19/24, XY CHEST PORTABLE on DOS: 05/17/24, XY CHEST SANJEEV BLE on DOS: 03/17/24 FINDINGS: Worsening opacification in the right diamond thorax, likely due to worsening pleural effusion, overlying atelectasis and consolidation. Increased opacities also noted in the left lung, including interstiti al opacities and ill-defined patchy airspace opacities. Unchanged cardiomegaly. Prominence of the pu lmonary vasculature also noted. No pneumothorax visualized. The patient is rotated to the right. IMPRESSION: 1. Worsening right pleural effusion and bilateral airspace opacities and interstitial opacities, whic h may be due to multifocal pneumonia and/or pulmonary edema. 2. Additional findings as detailed above.
[2024-05-24 07:49] LABS: Anion Gap 9 (5-15); BUN/Creatinine Ratio 46.5 (10.0-20.0); Calcium 9.9 mg/dL (8.7-10.4); Chloride 99 mmol/L (98-107); Glucose 82 mg/dL (74-106); Sodium 139 mmol/L (136-145); Total Protein 5.7 g/dL (5.7-8.2)
[2024-05-24 07:55] LABS: Alanine Aminotransferase 124 U/L (7-40); Alkaline Phosphatase 166 U/L (46-116); Aspartate Aminotransferase 174 U/L (13-40); Bilirubin, Total 4.1 mg/dL (0.2-1.0); Blood Urea Nitrogen 67 mg/dL (9-23); Carbon Dioxide 31 mmol/L (20-31); Potassium 5.4 mmol/L (3.5-5.1)
[2024-05-24 10:09] LABS: Base Excess 0.8 mmol/L (-2.0-3.0)
[2024-05-24] MEDS: IOHEXOL 350 MG/ML 100ML IJ ONE (11:00)
[2024-05-24] MEDS: FUROSEMIDE INJECTION 10 ML ONE (11:00)
--- NOTE | 2024-05-24 13:53 | DVHPN2 ---
Progress Note - Dictate Date Seen: May 24, 2024 Medical Necessity Reason Pt with a Central, PICC or Fol: Yes The following are medically ne: Burk Catheter Subjective PT WITH SS COMPLEX INCRESEING SOB HARVEY LE EDEMA HFrEF CHRONIC AND ACUTE NOW WITH HEMOPTYSIS TACHYCARDIA CTA LUNG C/W PE ACUTE vital signs Vital Sign Date Time Temp Pulse Resp B/P (MAP) Pulse Ox O2 Delivery O2 Flow Rate FiO2 05/24/24 13:00 97.1 98 26 132/76 (94) 95 97.1 05/24/24 11:13 Facial BiPAP Mask 30 05/24/24 08:00 4 Total Intake and Output 05/23/24 05/23/24 05/24/24 15:00 23:00 07:00 Intake Total 50 ml 132 ml Output Total 450 ml 350 ml Balance 50 ml -318 ml -350 ml medications Current Medications Medications Dose Ordered Sig/Amy Route Start Time Stop Time Status Last Admin Dose Admin Digoxin 0.125 mg DAILY PO 05/19/24 10:00 05/22/24 10:01 0.125 MG Ceftriaxone Sodium 50 ml @ 100 mls/hr DAILY@09 IV 05/19/24 09:00 05/24/24 10:33 100 MLS/HR Acetaminophen/ Hydrocodone Bitart 1 tab Q8HP PRN PO 05/19/24 14:30 05/22/24 22:26 1 TAB Furosemide 100 mg/ Sodium Chloride 110 ml @ 11 mls/hr Q10H IV 05/20/24 13:45 05/24/24 06:41 11 MLS/HR Spironolactone 25 mg DAILY PO 05/21/24 10:00 05/22/24 10:01 25 MG Apixaban 10 mg BID PO 05/23/24 12:30 05/29/24 22:01 05/23/24 12:30 10 MG Apixaban 5 mg BID PO 05/30/24 10:00 objective PUL DIFF RHONCHI JVD ANGLE OF THE JAW CV RR PMI DIFFUSE EXT 3+ EDEMA laboratory and microbiology Laboratory Tests 05/24/24 06:55 05/23/24 06:15 Test 05/24/24 06:55 Range/Units Serum Glucose 82 74-106 mg/dL Problem List SS COMPLEX INCRESEING SOB HARVEY LE EDEMA HFrEF CHRONIC AND ACUTE EF < 20% NOW WITH HEMOPTYSIS TACHYCARDIA CTA LUNG C/W PE 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 Large filling defect right pulmonary artery consistent with pulmonary embolus. No film findings of pulmonary artery hypertension. No pulmonary emboli noted on the left. 2. Findings are also suggestive of right heart strain. 3. Large right pleural effusion. HEPARIN DRIP\ LASIX DRIP WILL START ORAL ANTICOAGULATION IN 48 HOURS ABX LE ARTERIAL DOPPLER NO SIGNIFICANT DISEASE FOR LIMB RISK DC HEPARIN START ELIQIS S/P CT HEAD CURRENTLY ON BiPAP IMPROVING RESP STATUS 7.32/59/69 TITRATE BIPAP THORACENTESIS ULTRASOUND GUIDED MRI OF ABD Dietary Evaluation Review Comments: 1. consider Renal Specific 70g protein restriction witn 2GNa, 3K, low Phos, if no diaylsis needed. 2. consider Renal Standard 2gn, 3K, low phosphate diet if Pt is on dialysis. 3. encourage and monitor po intake to meet 75% of his needs. Expected Outcomes/Goals: avoid uremic symptoms, gradual healed wounds. Plan discussed with: Patient, Other Critical Care Time(min): 35 ISSAC SHAH MD May 24, 2024 13:53
--- NOTE | 2024-05-24 23:25 | DVHINCON2 ---
Date of service: May 24, 2024 Referring Physician Fabien Felipe MD Reason for Consultation AHRF, pleural effusion, pulmonary embolism History of Present Illness A 63-year-old man with past medical history of congestive heart failure who presented to ED on 05/20/24 with c/o shortness of breath, HARVEY, lower extremity edema. Patient was noted to be in CHF exacerbation. CTA showed findings consistent with acute pulmonary embolism. CXR today shows worsening right pleural effusion and bilateral airspace opacities and interstitial opacities, which may be due to multifocal pneumonia and/or pulmonary edema. Patient was admitted for further care and pulmonary consultation is requested for evaluation and management due to the above findings. Review of Systems: 14-point review of systems negative unless otherwise noted above. Past Medical History: CHF. Past Surgical History: None. Medications: Reviewed. Allergies: No known drug allergies. Family History: No family history of premature CAD. No family history of lung disorders. Social History: Nonsmoker. No alcohol or illicit drug use. Family History: Patient reports no known family medical history. Allergies: Coded Allergies: NO KNOWN ALLERGIES (Unverified , 03/11/24) Home Meds Active Scripts Bumetanide (Bumetanide) 2 Mg Tab, 1 TAB PO BID for 30 Days, #60 TAB 0 Refills Prov:FARHAD FLORES MD 03/19/24 Metoprolol Succinate (Metoprolol Succinate Er) 50 Mg Tab, 1 TAB PO DAILY for 30 Days, #30 TAB 5 Refills Prov:FARHAD FLORES MD 03/19/24 Sacubitril-Valsartan (Entresto 24-26 mg) 1 Tab Tab, 1 TAB PO BID for 30 Days, #60 TAB Prov:FARHAD FLORES MD 03/19/24 Doxycycline Monohydrate (Doxycycline Monohydrate) 100 Mg Cap, 1 CAP PO BID for 14 Days, #28 CAP Prov:FARHAD FLORES MD 03/19/24 Reported Medications Spironolactone (Spironolactone) 50 Mg Tab, 1 TAB PO DAILY for 30 Days, #30 05/21/24 Ursodiol (Ursodiol) 300 Mg Cap, 1 TAB PO BID for 90 Days, #180 03/18/24 Terbinafine Hcl (Terbinafine Hcl) 250 Mg Tab, 1 TAB PO DAILY for 90 Days, #90 03/18/24 Furosemide (Furosemide) 20 Mg Tab, 1 TAB PO DAILY, #90 TAB 1 Refill 03/12/24 Terbinafine Hcl (Topical) (Lamisil At [employer]) 1 % Cre, 1 % EX, CRE 03/12/24 Losartan Potassium (Losartan Potassium) 50 Mg Tab, 1 TAB PO DAILY, #30 TAB 5 Refills 03/12/24 Current Medications Current Medications Medications (Trade) Dose Ordered Sig/Amy Route PRN Reason Start Time Stop Time Status Last Admin Apixaban (Eliquis) 5 mg BID PO 05/30/24 10:00 Vital Signs Vital Signs Date Time Temp Pulse Resp B/P (MAP) Pulse Ox O2 Delivery O2 Flow Rate FiO2 05/24/24 22:40 86 93 Facial BiPAP Mask 30 05/24/24 21:00 98.5 20 136/69 (91) 98.5 05/24/24 08:00 4 Physical Exam Gen.: Patient lying in bed in no apparent distress. On BiPAP Head: Normocephalic, atraumatic. Eyes: EOMI/PERRLA. Ears: Normal hearing. Normal anatomy. Neck/trachea: Trachea midline, supple. Nose: Normal external anatomy. Mouth: Moist mucous membranes. Chest: Decreased air entry bilaterally. No wheezing or rhonchi. Cardiovascular: Positive S1, positive S2. Regular rate and rhythm. Abdomen: Positive bowel sounds in all 4 quadrants. Soft, non-tender, non- distended. : Deferred. Rectal: Deferred. Skin: Warm, dry. Intact. Extremities: 2+ radial pulses bilaterally. No lower extremity edema. Neuro: Awake, alert, oriented x3. No gross motor or sensory deficits. Cranial nerves II through XII intact. Gait not assessed. Labs/Diagnostic Data Labs Test 05/24/24 13:10 05/24/24 10:00 05/24/24 07:24 05/24/24 06:55 Range/Units Blood Gas Specimen Type Arterial Blood Gas Sample Site Right radial Blood Gas Patient Temperature 37.0 Arterial Blood Date Drawn [id number] Arterial Blood pH 7.319 L 7.350-7.450 Arterial Blood Partial Pressure CO2 59.5 H 35.0-48.0 mmHg Arterial Blood Partial Pressure O2 69.6 L 83.0-108.0 mmHg Arterial Blood HCO3 29.9 H 21.0-28.0 mmol/L Arterial Blood Oxygen Saturation 91.2 L 94.0-98.0 % Arterial Blood Base Excess 2.0 -2.0-3.0 mmol/L Arterial Blood Oxyhemoglobin 89.5 L 94.0-98.0 % Arterial Blood Carboxyhemoglobin 1.5 0.5-1.5 % Arterial Blood Methemoglobin 0.4 0.0-1.5 % Mark Test Yes Blood Gas Total Hemoglobin 16.00 13.5-17.5 g/dL Blood Gas Set Respiration Rate 16.0 Blood Gas Modality Mask - bipap FiO2 % 30.0 Blood Gas EPAP 5 Blood Gas IPAP 14 Blood Gas Critical Value Read Back Yes Blood Gas Notified Whom Md. corrigan Blood Gas Notified Time [id number] Blood Gas Notified By Attending Anesthesiologist candelario barrios Blood Gas Liter Flow 5.00 Specimen Drawn By Attending Anesthesiologist beatris may Sodium Level 139 136-145 mmol/L Potassium Level 5.4 H 3.5-5.1 mmol/L Chloride Level 99 98-107 mmol/L Carbon Dioxide Level 31 20-31 mmol/L Anion Gap 9 5-15 Blood Urea Nitrogen 67 H 9-23 mg/dL Creatinine 1.44 H 0.700-1.30 mg/dL Glomerular Filtration Rate Calc 55 >90 mL/min BUN/Creatinine Ratio 46.5 H 10.0-20.0 Serum Glucose 82 74-106 mg/dL Calcium Level 9.9 8.7-10.4 mg/dL Total Bilirubin 4.1 H 0.2-1.0 mg/dL Aspartate Amino Transferase (AST) 174 H 13-40 U/L Alanine Aminotransferase (ALT) 124 H 7-40 U/L Alkaline Phosphatase 166 H 46-116 U/L Ammonia 22 11-32 umol/L B-Type Natriuretic Peptide > 5000.00 0-100 pg/mL Total Protein 5.7 5.7-8.2 g/dL Albumin 3.0 L 3.2-4.8 g/dL Test 05/23/24 06:15 05/22/24 19:05 05/19/24 10:08 Range/Units White Blood Count 8.4 4.4-10.8 10^3/uL Red Blood Count 5.53 4.5-5.90 10^6/uL Hemoglobin 15.2 13.5-17.5 g/dL Hematocrit 47.9 41.0-53.0 % Mean Corpuscular Volume 86.7 80.0-100.0 fL Mean Corpuscular Hemoglobin 27.4 L 28.0-32.0 pg Mean Corpuscular Hemoglobin Concent 31.6 L 32.0-36.0 g/dL Red Cell Distribution Width 18.6 H 11.8-14.3 % Platelet Count 119 L 140-450 10^3/uL Mean Platelet Volume 10.3 6.9-10.8 fL Neutrophils (%) (Auto) 85.2 H 37.0-80.0 % Lymphocytes (%) (Auto) 5.2 L 10.0-50.0 % Monocytes (%) (Auto) 9.1 0.0-12.0 % Eosinophils (%) (Auto) 0.1 0.0-7.0 % Basophils (%) (Auto) 0.4 0.0-2.0 % Neutrophils # (Auto) 7.1 1.6-8.6 10 ^3/uL Lymphocytes # (Auto) 0.4 0.4-5.4 10 ^3/uL Monocytes # (Auto) 0.8 0-1.3 10 ^3/uL Eosinophils # (Auto) 0 0-0.8 10 ^3/uL Basophils # (Auto) 0 0-0.2 10 ^3/uL Nucleated Red Blood Cells 0.5 % Prothrombin Time 17.7 H 9.3-11.8 sec Prothrombin Time INR 1.74 H 0.9-1.15 Activated Partial Thromboplast Time 54.8 H 24.5-34.5 SEC Urine Color Yellow Yellow Urine Clarity Turbid H Clear Urine pH 5.0 5.0-9.0 Urine Specific [place] 1.012 1.001-1.035 Urine Protein 1+ H Negative Urine Ketones Negative Negative Urine Blood Negative Negative /uL Urine Nitrite Negative Negative Urine Bilirubin Negative Negative Urine Urobilinogen 3 H Negative mg/dL Urine Leukocyte Esterase Negative Negative /uL Urine RBC 1 0 - 3 /hpf Urine WBC 3 0 - 3 /hpf Urine Squamous Epithelial Cells Few <5 /hpf Urine Bacteria None seen None Seen /hpf Urine Hyaline Casts Many 0 - 2 /lpf Urine Mucus Few None Seen Urine Glucose Normal Normal mg/dL Microbiology Date/Time Source Procedure Growth Status 05/19/24 02:50 Nose MRSA Screen - Final Complete Assessment Impression: Acute hypoxic respiratory failure Pleural effusion, right Atelectasis CHF exacerbation Pulmonary embolism Plan: On BiPAP with IPAP 12, EPAP 5, FiO2 of 30% Titrate FiO2 to keep O2 sats above 92%. Taper as tolerated. CXR demonstrates worsening right pleural effusion and bilateral airspace op acities and interstitial opacities, likely due to multifocal pneumonia and/or pulmonary edema. Obtain limited chest ultrasound to evaluate if pleural effusion amenable for thoracentesis. On heparin drip. Continue antibiotics Incentive spirometry Diurese w/ Lasix drip as tolerated Monitor renal function. Monitor electrolytes. Supplement as necessary. Monitor ins and outs. DVT prophylaxis. Prognosis: Poor given patient's multiple co-morbidities. Rest of plan per hospitalist and other consultants. Thank you Dr. Felipe, for allowing me to participate in this patient's care. Further recommendations will depend on the patient's clinical course. Please do not hesitate to contact me if you have any questions or concerns. This medical document was created using an electronic medical record system with [employer] computerized dictation system. Although these documentations are being carefully reviewed, there may still be some phonetic and typographical changes. The errors are purely typographical, due to imperfection on the software program, and do not reflect any compromise in the patient's medical care. Plan discussed with: Patient, Other (CALEB Sellers/MD Felipe) BOGDAN MANN MD May 24, 2024 23:24
[2024-05-25] VITALS (18 sets, daily range): BP systolic 110–140; BP diastolic 51–70; PULSE 90–103; RESP 18–22; TEMP 97.2–97.9; O2SAT 94–100
[2024-05-25 08:04] LABS: Base Excess 6.4 mmol/L (-2.0-3.0)
[2024-05-25 10:03] LABS: Basophils # (auto) 0.1 10 ^3/uL (0-0.2); Eosinophils # (auto) 0 10 ^3/uL (0-0.8); Eosinophils % (auto) 0.1 % (0.0-7.0); Hematocrit 46.2 % (41.0-53.0); Hemoglobin 14.7 g/dL (13.5-17.5); Lymphocytes # (auto) 0.3 10 ^3/uL (0.4-5.4); Lymphocytes % (auto) 2.6 % (10.0-50.0); Mean Corpuscular Hemoglobin 27.1 pg (28.0-32.0); Mean Corpuscular Hgb Conc. 31.8 g/dL (32.0-36.0); Mean Corpuscular Volume 85.2 fL (80.0-100.0); Monocytes # (auto) 0.5 10 ^3/uL (0-1.3); Monocytes % (auto) 3.9 % (0.0-12.0); Neutrophils # (auto) 10.9 10 ^3/uL (1.6-8.6); Neutrophils % (auto) 92.4 % (37.0-80.0); Nucleated Red Blood Cells % 0.4 %; Platelet Count (auto) 84 10^3/uL (140-450); Red Blood Cells 5.42 10^6/uL (4.5-5.90); Red Cell Distribution Width 17.8 % (11.8-14.3); White Blood Cell 11.8 10^3/uL (4.4-10.8)
[2024-05-25 10:32] LABS: Anion Gap 6 (5-15); BUN/Creatinine Ratio 51.7 (10.0-20.0); Calcium 9.4 mg/dL (8.7-10.4); Chloride 102 mmol/L (98-107); Sodium 144 mmol/L (136-145)
[2024-05-25 10:58] LABS: Alanine Aminotransferase 87 U/L (7-40); Albumin 2.5 g/dL (3.2-4.8); Alkaline Phosphatase 133 U/L (46-116); Aspartate Aminotransferase 103 U/L (13-40); Bilirubin, Total 3.5 mg/dL (0.2-1.0); Blood Urea Nitrogen 62 mg/dL (9-23); Carbon Dioxide 36 mmol/L (20-31); Glucose 129 mg/dL (74-106); Total Protein 5.1 g/dL (5.7-8.2)
--- NOTE | 2024-05-25 23:20 | DVHPN2 ---
Progress Note - Dictate Date Seen: May 25, 2024 Medical Necessity Reason Pt with a Central, PICC or Fol: Yes The following are medically ne: Burk Catheter Subjective Patient seen and examined at bedside Remains on BiPAP. Overnight events reviewed. vital signs Vital Sign Date Time Temp Pulse Resp B/P (MAP) Pulse Ox O2 Delivery O2 Flow Rate FiO2 05/25/24 22:46 138/62 05/25/24 21:00 98 18 95 05/25/24 16:36 97.9 97.9 05/25/24 13:19 30 05/25/24 12:30 Facial BiPAP Mask 05/25/24 08:00 4 Total Intake and Output 05/24/24 05/24/24 05/25/24 15:00 23:00 07:00 Intake Total 50 ml 0 ml 0 ml Output Total 750 ml 1850 ml Balance 50 ml -750 ml -1850 ml medications Current Medications Medications Dose Ordered Sig/Amy Route Start Time Stop Time Status Last Admin Dose Admin Digoxin 0.125 mg DAILY PO 05/19/24 10:00 05/22/24 10:01 0.125 MG Ceftriaxone Sodium 50 ml @ 100 mls/hr DAILY@09 IV 05/19/24 09:00 05/25/24 08:31 100 MLS/HR Acetaminophen/ Hydrocodone Bitart 1 tab Q8HP PRN PO 05/19/24 14:30 05/22/24 22:26 1 TAB Furosemide 100 mg/ Sodium Chloride 110 ml @ 11 mls/hr Q10H IV 05/20/24 13:45 05/25/24 22:46 11 MLS/HR Spironolactone 25 mg DAILY PO 05/21/24 10:00 05/22/24 10:01 25 MG Apixaban 10 mg BID PO 05/23/24 12:30 05/29/24 22:01 05/23/24 12:30 10 MG Apixaban 5 mg BID PO 05/30/24 10:00 objective Gen.: Patient lying in bed in no apparent distress. On BiPAP. Head: Normocephalic, atraumatic Eyes: EOMI/PERRLA. Ears: Normal hearing. Normal anatomy. Neck/trachea: Trachea midline, supple. Nose: Normal external anatomy. Mouth: Moist mucous membranes. Chest: Fair air entry bilaterally. No wheezing or rhonchi. Cardio vascular: Positive S1, positive S2. Regular rate and rhythm. Abdomen: Positive bowel sounds in all 4 quadrants. Soft, non-tender, non- distended. : Deferred. Rectal: Deferred Skin: Warm, dry. Extremities: 2+ radial pulses bilaterally. No lower extremity edema. Neuro: Awake, alert. No gross motor or sensory deficits. Cranial nerves II through XII intact. Gait not assessed. laboratory and microbiology Laboratory Tests 05/25/24 09:44 Test 05/25/24 09:44 Range/Units Serum Glucose 129 H 74-106 mg/dL Assessment/Plan Impression: Acute hypoxic respiratory failure Pleural effusion, right Atelectasis CHF exacerbation Pulmonary embolism Events: Patient remains on BiPAP. On FiO2 of 30%. Limited chest ultrasound did demonstrate moderate right pleural effusion. Patient currently on heparin drip. We will obtain informed consent. He will need to stop heparin drip 30 minutes prior to and resume 30 minutes after thoracentesis. Rest of plan as outlined below Plan: On BiPAP with IPAP 12, EPAP 5, FiO2 of 30% Titrate FiO2 to keep O2 sats above 92%. Taper as tolerated. CXR demonstrates worsening right pleural effusion and bilateral airspace opacities and interstitial opacities, likely due to multifocal pneumonia and/or pulmonary edema. On heparin drip. Continue antibiotics Incentive spirometry Diurese w/ Lasix drip as tolerated Monitor renal function. Monitor electrolytes. Supplement as necessary. Monitor ins and outs. DVT prophylaxis. Prognosis: Poor given patient's multiple co-morbidities. Rest of plan per hospitalist and other consultants. Thank you Dr. Felipe, for allowing me to participate in this patient's care. Further recommendations will depend on the patient's clinical course. Please do not hesitate to contact me if you have any questions or concerns. This medical document was created using an electronic medical record system with [employer] dictation system. Although these documentations are being carefully reviewed, there may still be some phonetic and typographical changes. The errors are purely typographical, due to imperfection on the software program, and do not reflect any compromise in the patient's medical care. Dietary Evaluation Review Comments: 1. consider Renal Specific 70g protein restriction witn 2GNa, 3K, low Phos, if no diaylsis needed. 2. consider Renal Standard 2gn, 3K, low phosphate diet if Pt is on dialysis. 3. encourage and monitor po intake to meet 75% of his needs. Expected Outcomes/Goals: avoid uremic symptoms, gradual healed wounds. Plan discussed with: Other (RN, MD) BOGDAN MANN MD May 25, 2024 23:20
[2024-05-26] VITALS (26 sets, daily range): BP systolic 66–144; BP diastolic 39–76; PULSE 126–140; RESP 12–29; TEMP 97–97.7; O2SAT 90–100
--- NOTE | 2024-05-26 13:44 | MEDREC ---
[facility] Intervention Section I [facility] Intervention: Review courses of therapy (ADD DOXYCYCLINE OR AZITHROMYCIN FOR ATYPICAL COVERAGE) RAVEN SILVEIRA PHARMACIST May 26, 2024 13:44
[2024-05-26] MEDS: GADOTERATE MEG 10 MMOL/20ml INJ (0.5MMOL/ml) IV ONE (14:27)
--- NOTE | 2024-05-26 16:11 | DVH ---
MRI MRI ABDOMEN W AND WO INDICATION: Pancreatic mass COMPARISON: None PROCEDURE: Multiplanar multisequence MRI images were obtained of the abdomen without intravenous cont rast FINDINGS: Lung Base: Moderate right pleural effusion. Liver: Normal. Gallbladder and biliary tree: Multiple gallstones in the gallbladder. Pancreas: Pancreas is not well visualized due to patient respiratory motion, however no obvious mass is seen. Spleen: Normal. Bowel: Moderate colonic diverticulosis. Adrenal glands: Normal. Kidneys and ureters: 2.5 cm right kidney cyst. Peritoneum: Normal. Lymph nodes: Normal. Vessels: Normal Abdominal wall: Edematous. Bones: Scattered degenerative changes are noted in the visualized osseous structures. IMPRESSION: Pancreas is not well visualized due to patient respiratory motion, however no obvious mass is seen. C onsider CT A/P for further evaluation. Moderate colonic diverticulosis. Moderate right pleural effusion. Cholelithiasis.
[2024-05-26] MEDS: SUCCINYLCHOLINE CHLORIDE 20 MG/ML 10ML VIAL IV ONE ×2 (19:02→22:00)
[2024-05-26] MEDS: MIDAZOLAM DRIP 50 mg/50mL 50 ML IV ONE ×2 (19:04→21:23)
[2024-05-26] MEDS: ETOMIDATE (2MG/ML) 20ML VIAL IV ONE ×2 (19:05→22:45)
--- NOTE | 2024-05-26 19:10 | DVHNC2 ---
Procedure - Ultrasound-guided right thoracentesis procedure note: Physician: Dr Carly Scott Date: May 26, 2024 Time: 18:50 Consent: Consent was obtained from patient's healthcare proxy prior to procedure. Indication, risks, and benefits were explained at length. Procedure summary: A time out was performed and a chest x-ray was reviewed prior to procedure. The appropriate site was confirmed and marked. My hands were washed immediately prior to the procedure, I wore a surgical cap, mask with protective eyewear, sterile gown and sterile gloves throughout the procedure. The patient was prepped and draped in a sterile manner using chlorhexidine scrub after the appropriate level was percussed and confirmed by ultrasound. 1% lidocaine was used to anesthetize the skin, subcutaneous tissue, superior aspect of the rib periosteum and parietal pleura. A finder needle was then introduced over the superior aspect of the rib to locate the pleural fluid; joycelyn colored fluid was aspirated. 5 Tamazight Yueh Thoracentesis needle was then introduced through the skin incision into the pleural space using negative aspiration pressure. The thoracentesis catheter was then threaded without difficulty. 2200 mL's of joycelyn colored fluid were removed without difficulty. The catheter was then removed. No immediate complications were noted during the procedure. A postprocedure chest x-ray is pending at the time of this note. The pleural fluid will be sent for cultures and cytology. Estimated blood loss is less than 5 mL's. CPT: 55573 BOGDAN SCOTT MD May 26, 2024 19:10
[2024-05-26] MEDS: fentaNYL Drip 2500mCg/250mlNS 250 ML IV ONE (19:13)
--- NOTE | 2024-05-26 19:40 | DVH ---
EXAM: XY CHEST XRAY 1 VIEW TECHNIQUE: Single frontal chest radiograph CLINICAL HISTORY: s/p right thoracentesis COMPARISON: XY CHEST PORTABLE on DOS: 05/24/24, XY CHEST XRAY 1 VIEW on DOS: 05/19/24, XY CHEST PORTABL E on DOS: 05/17/24 Findings/Impression: Frontal chest radiograph demonstrates no acute osseous or superficial soft tissue abnormalities. The trachea is midline. Cardiomegaly with pulmonary edema. Small bilateral pleural effusions with compressive atelectasis. A superimposed infectious process is not excluded. No definite pneumothorax.
[2024-05-26 19:53] LABS: Base Excess 17.9 mmol/L (-2.0-3.0)
[2024-05-26] MEDS: ROCURONIUM 10MG/ML 10ML VIAL IV ONE ×2 (20:23→22:00)
[2024-05-26] MEDS: NOREPINEPHRINE 8 MG/250ML KIT 250 ML IV ONE (20:38)
[2024-05-26] MEDS: NOREPINEPHRINE 8 MG/250ML KIT 250 ML IV SCH (21:00)
--- NOTE | 2024-05-26 21:03 | DVHNC2 ---
Procedure - Procedure: Endotracheal Intubation INDICATION: Acute hypoxic respiratory failure, accessory muscle usage Physician: Bogdan Scott MD CONSENT: Emergent procedure. Implied. Time out time: 2008 pm Patient medications and allergies reviewed. Patient identification and proposed procedure were verified prior to the procedure by the physician, and a nurse in the patient's room. The heart rate, respiratory rate, oxygen saturations, blood pressure, adequacy of pulmonary ventilation, and response to care were monitored throughout the procedure. The physical status of the patient was reassessed after the procedure. PROCEDURE SUMMARY: A time out was performed. My hands were washed immediately prior to the procedure. I wore a surgical cap, mask with protective eyewear, gown and gloves throughout the procedure. The patient was placed on a monitoring specialist including continuous pulse oximetry. The patient received 16 mg Etomidate and 50 mg Succinylcholine for induction. Cricoid pressure was maintained from time induction agent was given to time of cuff balloon inflation. Using a MAC 4 GlideoScope and a size 8.0 endotracheal tube with stylet, the patient was intubated on the 1 attempt. The stylet was removed and cuff balloon was inflated. Appropriate endotracheal tube position was confirmed by direct visualization of vocal cord passage, fogging of the tube, CO2 colorimetric indicator and symmetric breath sounds. The tube was secured at 23 cm at the lips. Post intubation chest x-ray is pending at the time of writing this note. CPT Code: 07681 BOGDAN SCTOT MD May 26, 2024 21:02
--- NOTE | 2024-05-26 21:06 | DVHNC2 ---
Procedure - Therapeutic Bronchoscopy procedure note: Indications: Suspected mucus plugs versus aspiration, Possible mucous plugging. Medicines: See [employer] notes. Complications: None Procedure: Procedure deemed emergent and medically necessary given patient's degree of hypoxia. Patient identification and proposed procedure were verified prior to the procedure by the physician, and a nurse, and the respiratory therapist in ICU room. The heart rate, respiratory rate, oxygen saturations, blood pressure, adequacy of pulmonary ventilation, and response to care were monitored throughout the procedure. The physical status of the patient was reassessed after the procedure. After obtaining informed consent, the bronchoscope was introduced through the endotracheal tube and advanced into the trachea bronchial tree of both lungs. The procedure was accomplished without difficulty. The patient tolerated the procedure well. Findings: The trachea is in normal caliber. The fredo is sharp. The tracheobronchial tree of the right lung was examined to at least the first subsegmental level. The bronchial mucosa and anatomy in the right lung are normal. There are no endobronchial lesions. There was copious bloody secretions from right main stem bronchus onward throughout R1-R10. Mucous plugging removed from R6-R10. The left upper lobe, lingula, and left lower lobe were examined to at least the first subsegmental level. Bronchial mucosa and anatomy in the left upper lobe and lingula are normal. There were no endobronchial lesions. There was copious whitish secretions from left main stem bronchus onward throughout L1-L10. Mucous plugging removed from L6-L10. There was no active bleeding at the completion of the procedure. Estimated blood loss: Less than 5 mL. Impression: Bilateral lower lobe atelectasis due to mucous plugging Mucous plugging from L6-L10 and R6-R10. Recommendation: Pulmonary toileting Procedure codes: 33250, bronchoscopy, rigid and flexible, including fluoroscopic guidance, one performed; with bronchial endobronchial removal of mucus plugs, single or multiple sites BOGDAN MANN MD May 26, 2024 21:06
--- NOTE | 2024-05-26 21:07 | DVHNC2 ---
Procedure - ULTRASOUND-GUIDED LEFT SUBCLAVIAN INTERNAL JUGULAR CENTRAL VENOUS CANNULATION CPT Codes: 82350 (ultrasound guidance) 81264 (insertion of non-tunneled centrally inserted central venous catheter) 58335 (CXR interpretation) Procedure deemed emergent and medically necessary for administration of vasoactive medications, frequent blood draws on hemodynamic monitoring. Patient medications and allergies reviewed. The risks and benefits of the procedure and the sedation options and risk were discussed with the patient's healthcare proxy. All questions were answered and informed consent was obt ained. Patient identification and proposed procedure were verified prior to the procedure by the physician, and a nurse in the patient's room. The heart rate, respiratory rate, oxygen saturations, blood pressure, adequacy of pulmonary ventilation, and response to care were monitored throughout the procedure. The physical status of the patient was reassessed after the procedure. Date: May 26, 2024 PHYSICIAN: Bogdan Scott PREOPERATIVE DIAGNOSIS: Cardiogenic shock, acute hypoxic respiratory failure POSTOPERATIVE DIAGNOSIS: Cardiogenic shock, acute hypoxic respiratory failure PROCEDURE PERFORMED: Limited Ultrasound-guided LEFT SUBCLAVIAN jugular central line placement. ANESTHESIA: 2 mL of 1% lidocaine plain. ESTIMATED BLOOD LOSS: less than 5 mL. SPECIMENS: None. COMPLICATIONS: None. INDICATIONS FOR PROCEDURE: The patient is in need of large bore IV access for administration of fluids, including blood products and vasoactive drugs, possible transvenous cardiac pacing and CVP monitoring for hemodynamic instability. DESCRIPTION OF PROCEDURE IN DETAIL: The patient was lying in the Trendelenburg position with head turned 30 degrees away from the insertion site. The skin was thoroughly sponged with chlorhexidine and allowed to dry. All persons involved were shielded with hair nets, face masks and sterile gowns. With sterile-gloved hands the right neck area was draped with the large disposable sterile field provided in the pre-manufactured kit. The skin and subcutaneous tissues superficial to the LEFT SUBCLAVIAN vein were anesthetized with 2 mL of 1% lidocaine. The LEFT SUBCLAVIAN vein was identified on ultrasound using the linear ultrasound probe in the transverse orientation. The subclavian artery was identified and avoided utilizing color-flow. The subclavian vein was then placed in the center of the ultrasound field and compressed for patency. A movement artifact was identified as the needle was advanced through the skin and advanced toward the vessel. A real time hyperechoic signal revealed visualization of vascular needle entry into the lumen as blood was noted to flashback in the syringe. The needle was then held in place while the guide wire was advanced. The needle was then removed. Direct visualization of guide wire location within the vein was noted on ultrasound indicating proper placement and was document in the electronic medical record chart. A skin dilator was advanced over the guidewire and removed, and the triple-lumen catheter was then advanced over the guide wire into proper position. The guide wire was removed and discarded. The ports were aspirated which showed good blood return and then carefully flushed with normal saline. The catheter was stabilized and sutured to the skin with 2-0 silk at 2 anchor points. A sterile bio-patch and dressing was placed over the catheter, including the insertion site. The patient tolerated the procedure well. A chest x-ray was ordered for position confirmation. I reviewed the image immediately after it was taken at bedside. Post-procedure chest x-ray demon strates the central line in the superior vena and no evidence of any pneumothorax. An image recording of the procedure accompanies the chart. BOGDAN SCOTT MD May 26, 2024 21:07
--- NOTE | 2024-05-26 21:08 | DVHNC2 ---
Procedure - Radial arterial line procedure note Indication: Hemodynamic monitoring, frequent blood ABG draws. Brick Chimney Builder: Dr. Scott Date: May 26, 2024 Consent: Procedure deemed emergent and medically necessary for hemodynamic monitoring, and frequent ABGs. Patient medications and allergies reviewed. The risks and benefits of the procedure and the sedation options and risk were discussed with the patient's healthcare proxy. All questions were answered and informed consent was obtained. Patient identification and proposed procedure were verified prior to the procedure by the physician, and a nurse in the patient's room. The heart rate, respiratory rate, oxygen saturations, blood pressure, adequacy of pulmonary ventilation, and response to care were monitored throughout the procedure. The physical status of the patient was reassessed after the procedure. Procedure summary: A time-out was performed. My hands were washed immediately prior to the procedure. I wore surgical cap, mask with protective eyewear, sterile gown and sterile gloves throughout the procedure. After an Mark test was performed to ensure adequate perfusion, the LEFT wrist was prepped using chlorhexidine scrub and draped in sterile fashion using sterile towels. The radial pulse was identified with the use of ultrasound. The wrist was positioned in the usual fashion. Anesthesia was achieved using 1% lidocaine. Using the radial arterial line kit, needle was inserted into the radial artery using ultrasound guidance. Arterial blood flow was seen to pulsate in the flash chamber. The internal guidewire was advanced easily into the radial artery. The catheter was then advanced over the wire and the needle and wire were withdrawn. The catheter was sutured into place with 1 sutures. A sterile Biopatch and Tegaderm was placed over the catheter at the insertion site. The patient tolerated the procedure without any hemodynamic compromise. At the time of procedure completion, the catheter was connected to the cardiac catheterization technician and calibrated. Appropriate waveform and blood pressure tracing was observed. Estimated blood loss is less than 5 mL. CPT: 78607 Arterial line insertion CPT: 08313 US add-on BOGDAN SCOTT MD May 26, 2024 21:08
--- NOTE | 2024-05-26 21:10 | DVH ---
CHEST RADIOGRAPH Indication: POST INTUBATION AND CENTRAL LINE Technique: Single frontal view of the chest was obtained Comparison: XY CHEST XRAY 1 VIEW on DOS: 05/26/24, XY CHEST PORTABLE on DOS: 05/24/24, XY CHEST XRAY 1 EW on DOS: 05/19/24 FINDINGS: Lines and Tubes: Endotracheal tube 6.5 cm above the fredo. Central line in place in the left with th e tip of superior vena cava above the right atrium. Lungs: Airspace disease in the right lower lobe. Pleura: No effusion. No pneumothorax. Cardiomediastinal contours: Unremarkable Bones: No acute osseous abnormality. IMPRESSION: 1. Endotracheal tube in place 6.5 cm above the fredo. 2. Central line in place on the left with the tip in the superior vena cava. 3. Airspace disease right lower lobe HS:Y
--- NOTE | 2024-05-26 21:12 | DVHPN2 ---
Progress Note - Dictate Date Seen: May 26, 2024 Medical Necessity Reason Pt with a Central, PICC or Fol: Yes The following are medically ne: Burk Catheter Subjective Patient seen and examined at bedside. Sedated, intubated on mechanical ventilator. Overnight events reviewed. vital signs Vital Sign Date Time Temp Pulse Resp B/P (MAP) Pulse Ox O2 Delivery O2 Flow Rate FiO2 05/26/24 20:09 134 20 120/76 (91) 100 100 05/26/24 17:00 97.4 97.4 05/26/24 08:15 Oxymizer 4 Total Intake and Output 05/25/24 05/25/24 05/26/24 15:00 23:00 07:00 Intake Total 50 ml 633 ml 1000 ml Output Total 2100 ml 2675 ml Balance 50 ml -1467 ml -1675 ml medications Current Medications Medications Dose Ordered Sig/Amy Route Start Time Stop Time Status Last Admin Dose Admin Digoxin 0.125 mg DAILY PO 05/19/24 10:00 05/26/24 08:12 0.125 MG Ceftriaxone Sodium 50 ml @ 100 mls/hr DAILY@09 IV 05/19/24 09:00 05/26/24 08:12 100 MLS/HR Acetaminophen/ Hydrocodone Bitart 1 tab Q8HP PRN PO 05/19/24 14:30 05/22/24 22:26 1 TAB Furosemide 100 mg/ Sodium Chloride 110 ml @ 11 mls/hr Q10H IV 05/20/24 13:45 05/26/24 08:55 11 MLS/HR Spironolactone 25 mg DAILY PO 05/21/24 10:00 05/26/24 08:12 25 MG Apixaban 10 mg BID PO 05/23/24 12:30 05/29/24 22:01 05/26/24 08:12 10 MG Apixaban 5 mg BID PO 05/30/24 10:00 objective Gen.: Patient lying in bed in medical ICU. Sedated, intubated on mechanical ventilator. Head: Normocephalic, atraumatic. Eyes: PERRLA. Ears: Normal external anatomy. Throat: Endotracheal tube and orogastric tube in place. Neck: Supple, trachea midline. Chest: Transmitted breath sounds bilaterally. Decreased air entry bilaterally. No wheezing. Bibasilar crackles. Cardio vascular: Positive S1, positive S2. Regular rate and rhythm. Abdomen: Positive bowel sounds in all 4 quadrants. Soft, nontender, nondistended. : Burk in place. Normal external genitalia. Rectal: Deferred Skin: Warm, dry. Intact. Extremities: 2+ radial pulses bilaterally. No lower extremity edema. Neuro: Sedated. laboratory and microbiology Laboratory Tests 05/25/24 09:44 Test 05/25/24 09:44 Range/Units Serum Glucose 129 H 74-106 mg/dL Assessment/Plan Impression: Acute hypoxic respiratory failure Mechanical ventilator Pleural effusion, right Atelectasis CHF exacerbation Pulmonary embolism Obesity with a BMI of 30.1 Plan: s/p intubation on mechanical ventilator Status post right thoracentesis with removal of 2200 mL CXR image and report reviewed. Bilateral pleural effusions with compressive atelectasis. Cardiomegaly with pulmonary edema. No pneumothorax. ABG reviewed. Alkalemia due to contraction alkalosis. Hypoxemia with a PO2 of 42 mmHg. Patient was emergently intubated and placed on mechanical ventilation. Placed on assist control with respiratory rate of 20, tidal volume 500, peep of eight, FiO2 at 100%. Titrate FIO2 to keep O2 saturation above 92%. VAP bundle Daily ABG and CXR while intubated. Sedate for ventilatory synchrony Start pressors if necessary for hemodynamic support. Titrate to keep MAP above 65 mmHg/SBP above 90 mmHg. Continue antibiotics. F/u cultures. Diuresis with Lasix drip Monitor renal function due to Acute kidney injury. Monitor electrolytes. Supplement as necessary. Monitor ins and outs Cardiology recommendations appreciated. Nutritional support. Accucheks, ISS. GI/DVT prophylaxis. Condition: Critical Prognosis: Poor given multiple comorbidities. Rest of plan per hospitalist and other consultants. A total of 36 minutes of critical care time was spent reviewing the patient record, examining the patient, making a diagnostic and therapeutic plan, discussing this plan with the medical personnel, following up on diagnostic studies and following the patient for clinical stability excluding any and all procedures. At least 50% of this time was spent in direct, [id number] contact. Thank you Dr. Conn for allowing me to participate in this patient's care. Further recommendations will depend on patient's clinical course. Please do not hesitate to contact me if you have any questions or concerns. This medical document was created using an electronic medical record system with Dragon computerized dictation system. Although this document has been carefully reviewed, there may still be some phonetic and typographical errors. These areas are purely typographical due to imperfections of the software programs, and do not reflect any compromise in the patient's medical care. Dietary Evaluation Review Comments: 1. consider Renal Specific 70g protein restriction witn 2GNa, 3K, low Phos, if no diaylsis needed. 2. consider Renal Standard 2gn, 3K, low phosphate diet if Pt is on dialysis. 3. encourage and monitor po intake to meet 75% of his needs. Expected Outcomes/Goals: avoid uremic symptoms, gradual healed wounds. Plan discussed with: Patient, Other (RN Kennedi, RT, MD) Critical Care Time(min): 35 BOGDAN MANN MD May 26, 2024 21:12
[2024-05-26 21:20] LABS: Base Excess 17.7 mmol/L (-2.0-3.0)
[2024-05-26 21:50] LABS: Body Fluid Polymorphonuclear 40 % (0-25); Body Fluid Red Blood Cells 401 CUMM (0-2000); Body Fluid White Blood Cells 59 CUMM (0-200)
[2024-05-26] MEDS: MIDAZOLAM DRIP 50 mg/50mL 50 ML IV SCH (22:00)
[2024-05-26] MEDS: fentaNYL Drip 2500mCg/250mlNS 250 ML IV SCH (22:00)
[2024-05-26] MEDS ORDERED: ETOMIDATE (2MG/ML) 20ML VIAL IV ONE (22:00)
[2024-05-26] MEDS: FUROSEMIDE INJECTION 10 ML ONE (22:12)
--- NOTE | 2024-05-26 23:00 | DVH ---
CHEST RADIOGRAPH Indication: OG TUBE PLACEMENT Technique: Single frontal view of the chest was obtained Comparison: XY CHEST PORTABLE on DOS: 05/26/24, XY CHEST XRAY 1 VIEW on DOS: 05/26/24, XY CHEST PORTABLE on DOS: 05/24/24 FINDINGS: Lines and Tubes: Endotracheal tube is in place 6.1 cm above the fredo. Right internal jugular cathet er in place in the superior vena cava above the right atrium. Enteric tube below the left diaphragm i n the stomach Lungs: Bibasilar infiltrates and/or atelectasis are present. Pleura: No effusion. No pneumothorax. Cardiomediastinal contours: Unremarkable Bones: No acute osseous abnormality. IMPRESSION: 1. Endotracheal tube in place 6.1 cm above the fredo 2. Enteric tube is seen below the left diaphragm in the stomach 3. Central catheter in place from the right with the tip in the superior vena cava above the right at rium. 4. Bibasilar infiltrates and/or atelectasis right worse than left. HS:Y
[2024-05-26 23:22] LABS: Base Excess 15.3 mmol/L (-2.0-3.0)
[2024-05-27] VITALS (101 sets, daily range): BP systolic 84–147; BP diastolic 40–91; PULSE 70–141; RESP 16–21; TEMP 97.7–99.8; O2SAT 94–100
[2024-05-27 03:55] LABS: BUN/Creatinine Ratio 47.9 (10.0-20.0); Chloride 102 mmol/L (98-107)
[2024-05-27 04:15] LABS: Basophils # (auto) 0 10 ^3/uL (0-0.2); Basophils % (auto) 0.1 % (0.0-2.0); Eosinophils # (auto) 0 10 ^3/uL (0-0.8); Eosinophils % (auto) 0.3 % (0.0-7.0); Hematocrit 45.6 % (41.0-53.0); Hemoglobin 14.8 g/dL (13.5-17.5); Lymphocytes # (auto) 0.4 10 ^3/uL (0.4-5.4); Lymphocytes % (auto) 3.2 % (10.0-50.0); Mean Corpuscular Hemoglobin 27.7 pg (28.0-32.0); Mean Corpuscular Hgb Conc. 32.5 g/dL (32.0-36.0); Mean Corpuscular Volume 85.1 fL (80.0-100.0); Monocytes # (auto) 0.5 10 ^3/uL (0-1.3); Monocytes % (auto) 4.5 % (0.0-12.0); Neutrophils # (auto) 10.2 10 ^3/uL (1.6-8.6); Neutrophils % (auto) 91.9 % (37.0-80.0); Nucleated Red Blood Cells % 0.3 %; Platelet Count (auto) 69 10^3/uL (140-450); Red Blood Cells 5.36 10^6/uL (4.5-5.90); Red Cell Distribution Width 18.3 % (11.8-14.3); White Blood Cell 11.1 10^3/uL (4.4-10.8)
[2024-05-27 04:38] LABS: Alanine Aminotransferase 60 U/L (7-40); Albumin 2.4 g/dL (3.2-4.8); Alkaline Phosphatase 129 U/L (46-116); Anion Gap 9.99999 (5-15); Aspartate Aminotransferase 76 U/L (13-40); Bilirubin, Total 3.2 mg/dL (0.2-1.0); Blood Urea Nitrogen 45 mg/dL (9-23); Carbon Dioxide > 40 mmol/L (20-31); Glucose 110 mg/dL (74-106); Potassium 2.7 mmol/L (3.5-5.1); Sodium 152 mmol/L (136-145); Total Protein 5.1 g/dL (5.7-8.2)
[2024-05-27] MEDS: POTASSIUM CHL 20MEQ/100ML 100 ML IV SCH ×2 (05:49→18:35)
[2024-05-27] MEDS: FUROSEMIDE INJECTION 10 ML ONE (06:41)
[2024-05-27 06:56] LABS: Base Excess 13.4 mmol/L (-2.0-3.0)
--- NOTE | 2024-05-27 07:28 | DVH ---
CHEST RADIOGRAPH Indication: PULM EDEMA Technique: Single frontal view of the chest was obtained Comparison: XY CHEST PORTABLE on DOS: 05/26/24 FINDINGS: Lines and Tubes: The endotracheal tube terminates 5.8 cm above the fredo. Left central venous cathet er terminates in the superior vena cava. The enteric tube courses below the left hemidiaphragm and th e tip extends outside the field of view. Lungs: Patchy bilateral pulmonary opacities. Pleura: Right pleural effusion. No pneumothorax. Cardiomediastinal contours: Cardiomegaly. Bones: No acute osseous abnormality. IMPRESSION: 1. Bilateral opacities which may represent pneumonia. 2. Small right pleural effusion.
--- NOTE | 2024-05-27 08:12 | DVHPN2 ---
Progress Note - Dictate Date Seen: May 25, 2024 Medical Necessity Reason Pt with a Central, PICC or Fol: Yes The following are medically ne: Burk Catheter Subjective PT WITH SS COMPLEX INCRESEING SOB HARVEY LE EDEMA HFrEF CHRONIC AND ACUTE NOW WITH HEMOPTYSIS TACHYCARDIA CTA LUNG C/W PE ACUTE vital signs Vital Sign Date Time Temp Pulse Resp B/P (MAP) Pulse Ox O2 Delivery O2 Flow Rate FiO2 05/27/24 06:45 140 16 106/51 (69) 96 05/27/24 05:58 Mechanical Ventilator+ 40 40 05/27/24 04:00 99.8 99.8 05/26/24 20:00 15 Total Intake and Output 05/26/24 05/26/24 05/27/24 15:00 23:00 07:00 Intake Total 50 ml 673.5 ml 591.25 ml Output Total 3575 ml 2700 ml Balance 50 ml -2901.5 ml -2108.75 ml medications Current Medications Medications Dose Ordered Sig/Amy Route Start Time Stop Time Status Last Admin Dose Admin Digoxin 0.125 mg DAILY PO 05/19/24 10:00 05/26/24 08:12 0.125 MG Ceftriaxone Sodium 50 ml @ 100 mls/hr DAILY@09 IV 05/19/24 09:00 05/26/24 08:12 100 MLS/HR Acetaminophen/ Hydrocodone Bitart 1 tab Q8HP PRN PO 05/19/24 14:30 05/22/24 22:26 1 TAB Furosemide 100 mg/ Sodium Chloride 110 ml @ 11 mls/hr Q10H IV 05/20/24 13:45 05/27/24 06:41 11 MLS/HR Spironolactone 25 mg DAILY PO 05/21/24 10:00 05/26/24 08:12 25 MG Apixaban 10 mg BID PO 05/23/24 12:30 05/29/24 22:01 05/26/24 22:00 10 MG Apixaban 5 mg BID PO 05/30/24 10:00 Midazolam HCl 50 ml @ 1 mls/hr Q24H IV 05/26/24 22:00 05/27/24 04:30 13 MLS/HR Fentanyl Citrate 250 ml @ 2.5 mls/hr Q24H IV 05/26/24 22:00 05/26/24 22:00 7.5 MLS/HR Norepinephrine Bitartrate 250 ml @ 3.75 mls/hr Q24H IV 05/26/24 22:00 05/27/24 04:27 33.75 MLS/HR Potassium Chloride 100 ml @ 50 mls/hr Q2H IV 05/27/24 05:30 05/27/24 09:29 05/27/24 07:45 50 MLS/HR objective PUL DIFF RHONCHI JVD ANGLE OF THE JAW CV RR PMI DIFFUSE EXT 3+ EDEMA laboratory and microbiology Laboratory Tests 05/27/24 03:00 Test 05/27/24 03:00 Range/Units Serum Glucose 110 H 74-106 mg/dL Problem List SS COMPLEX INCRESEING SOB HARVEY LE EDEMA HFrEF CHRONIC AND ACUTE EF < 20% NOW WITH HEMOPTYSIS TACHYCARDIA CTA LUNG C/W PE 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 Large filling defect right pulmonary artery consistent with pulmonary embolus. No film findings of pulmonary artery hypertension. No pulmonary emboli noted on the left. 2. Findings are also suggestive of right heart strain. 3. Large right pleural effusion. HEPARIN DRIP\ LASIX DRIP WILL START ORAL ANTICOAGULATION IN 48 HOURS ABX LE ARTERIAL DOPPLER NO SIGNIFICANT DISEASE FOR LIMB RISK DC HEPARIN START ELIQIS S/P CT HEAD CURRENTLY ON BiPAP IMPROVING RESP STATUS 7.32/59/69 TITRATE BIPAP THORACENTESIS ULTRASOUND GUIDED MRI OF ABD Dietary Evaluation Review Comments: 1. consider Renal Specific 70g protein restriction witn 2GNa, 3K, low Phos, if no diaylsis needed. 2. consider Renal Standard 2gn, 3K, low phosphate diet if Pt is on dialysis. 3. encourage and monitor po intake to meet 75% of his needs. Expected Outcomes/Goals: avoid uremic symptoms, gradual healed wounds. Plan discussed with: Patient, Other Critical Care Time(min): 35 ISSAC SHAH MD May 27, 2024 08:12
--- NOTE | 2024-05-27 08:22 | ECG ---
[facility] Test Date: 2024-05-26 Test Time: 21:03:15 Pat Name: JOMAR GOFF Department: Room: Cath ICU 4 Gender: M Chief Cook: : [id number] Requested By: ISSAC SHAH Order Number: [id number] Reading MD: Aubrie Raymundo Measurements Intervals [place] Rate: 140 P: 222 CT: 0 QRS: -39 QRSD: 104 T: 234 QT: 324 QTc: 494 Interpretive Statements Atrial flutter with 2:1 AV conduction Left axis deviation Repolarization abnormality prob rate related Electronically Signed On 05-27-2024 8:52:53 PST by Aubrie Raymundo Please click the below link to view image of tracing.
--- NOTE | 2024-05-27 08:23 | DVHPN2 ---
Progress Note - Dictate Date Seen: May 27, 2024 Medical Necessity Reason Pt with a Central, PICC or Fol: Yes The following are medically ne: Burk Catheter Subjective PT WITH SS COMPLEX INCRESEING SOB HARVEY LE EDEMA HFrEF CHRONIC AND ACUTE NOW WITH HEMOPTYSIS TACHYCARDIA CTA LUNG C/W PE ACUTE vital signs Vital Sign Date Time Temp Pulse Resp B/P (MAP) Pulse Ox O2 Delivery O2 Flow Rate FiO2 05/27/24 06:45 140 16 106/51 (69) 96 05/27/24 05:58 Mechanical Ventilator+ 40 40 05/27/24 04:00 99.8 99.8 05/26/24 20:00 15 Total Intake and Output 05/26/24 05/26/24 05/27/24 15:00 23:00 07:00 Intake Total 50 ml 673.5 ml 591.25 ml Output Total 3575 ml 2700 ml Balance 50 ml -2901.5 ml -2108.75 ml medications Current Medications Medications Dose Ordered Sig/Amy Route Start Time Stop Time Status Last Admin Dose Admin Digoxin 0.125 mg DAILY PO 05/19/24 10:00 05/26/24 08:12 0.125 MG Ceftriaxone Sodium 50 ml @ 100 mls/hr DAILY@09 IV 05/19/24 09:00 05/26/24 08:12 100 MLS/HR Acetaminophen/ Hydrocodone Bitart 1 tab Q8HP PRN PO 05/19/24 14:30 05/22/24 22:26 1 TAB Furosemide 100 mg/ Sodium Chloride 110 ml @ 11 mls/hr Q10H IV 05/20/24 13:45 05/27/24 06:41 11 MLS/HR Spironolactone 25 mg DAILY PO 05/21/24 10:00 05/26/24 08:12 25 MG Apixaban 10 mg BID PO 05/23/24 12:30 05/29/24 22:01 05/26/24 22:00 10 MG Apixaban 5 mg BID PO 05/30/24 10:00 Midazolam HCl 50 ml @ 1 mls/hr Q24H IV 05/26/24 22:00 05/27/24 04:30 13 MLS/HR Fentanyl Citrate 250 ml @ 2.5 mls/hr Q24H IV 05/26/24 22:00 05/26/24 22:00 7.5 MLS/HR Norepinephrine Bitartrate 250 ml @ 3.75 mls/hr Q24H IV 05/26/24 22:00 05/27/24 04:27 33.75 MLS/HR Potassium Chloride 100 ml @ 50 mls/hr Q2H IV 05/27/24 05:30 05/27/24 09:29 05/27/24 07:45 50 MLS/HR objective PUL DIFF RHONCHI JVD ANGLE OF THE JAW CV RR PMI DIFFUSE EXT 3+ EDEMA laboratory and microbiology Laboratory Tests 05/27/24 03:00 Test 05/27/24 03:00 Range/Units Serum Glucose 110 H 74-106 mg/dL Problem List SS COMPLEX INCRESEING SOB HARVEY LE EDEMA HFrEF CHRONIC AND ACUTE EF < 20% NOW WITH HEMOPTYSIS TACHYCARDIA CTA LUNG C/W PE 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 Large filling defect right pulmonary artery consistent with pulmonary embolus. No film findings of pulmonary artery hypertension. No pulmonary emboli noted on the left. 2. Findings are also suggestive of right heart strain. 3. Large right pleural effusion. HEPARIN DRIP\ LASIX DRIP WILL START ORAL ANTICOAGULATION IN 48 HOURS ABX LE ARTERIAL DOPPLER NO SIGNIFICANT DISEASE FOR LIMB RISK DC HEPARIN START ELIQUIS S/P CT HEAD CURRENTLY ON BiPAP IMPROVING RESP STATUS 7.32/59/69 TITRATE BIPAP THORACENTESIS ULTRASOUND GUIDED MRI OF ABD S/P THORACENTESIS 2200 CC DRAINED CXR BILATERAL INFILTRATE PROMINENT MEDIASTINUM CARDIOMEGALY HYPOKALEMIA BEING CORRECTED A FLUTTER S/P CARDIOVERSION SINUS RHYTHM Dietary Evaluation Review Comments: 1. consider Renal Specific 70g protein restriction witn 2GNa, 3K, low Phos, if no diaylsis needed. 2. consider Renal Standard 2gn, 3K, low phosphate diet if Pt is on dialysis. 3. encourage and monitor po intake to meet 75% of his needs. Expected Outcomes/Goals: avoid uremic symptoms, gradual healed wounds. Plan discussed with: Other Critical Care Time(min): 35 ISSAC SHAH MD May 27, 2024 08:23
--- NOTE | 2024-05-27 09:15 | DVHOP ---
DATE OF SURGERY: 05/27/2024 The patient is in respiratory failure, bilateral pleural effusion, status post thoracentesis, now in atrial flutter 2:1. The patient now to undergo cardioversion. The patient was sedated, already intubated. The patient's potassium was 2.7, being corrected with K rider. The patient is now to undergo direct 50 joules cardioversion. The patient was charged appropriately placing of the shock patches and the patient was given a single direct biphasic, 50 joule synchronized shock was delivered, the patient converted to sinus rhythm with PVCs. Blood pressure is being monitored and we started to titrate down on the Levophed. Fabien Felipe MD SA/MARCELLO/GALE TID: [id number] RECEIPT: [id number]
[2024-05-27 16:43] LABS: Base Excess 17.9 mmol/L (-2.0-3.0)
[2024-05-27] MEDS ORDERED: POTASSIUM CHL 20MEQ/100ML 100 ML IV SCH (17:15)
--- NOTE | 2024-05-27 22:53 | DVHPN2 ---
Progress Note - Dictate Date Seen: May 27, 2024 Medical Necessity Reason Pt with a Central, PICC or Fol: Yes The following are medically ne: Olsen Catheter Reason for olsen catheter: Strict I&O Subjective Patient seen and examined at bedside. Sedated, intubated on mechanical ventilator. Overnight events reviewed. vital signs Vital Sign Date Time Temp Pulse Resp B/P (MAP) Pulse Ox O2 Delivery O2 Flow Rate FiO2 05/27/24 22:00 95/45 05/27/24 21:43 80 20 98 30 05/27/24 20:00 Mechanical Ventilator+ 05/27/24 16:00 97.9 97.9 05/26/24 20:00 15 Total Intake and Output 05/26/24 05/26/24 05/27/24 15:00 23:00 07:00 Intake Total 50 ml 673.5 ml 656.50 ml Output Total 3575 ml 2700 ml Balance 50 ml -2901.5 ml -2043.50 ml medications Current Medications Medications Dose Ordered Sig/Amy Route Start Time Stop Time Status Last Admin Dose Admin Digoxin 0.125 mg DAILY PO 05/19/24 10:00 05/26/24 08:12 0.125 MG Ceftriaxone Sodium 50 ml @ 100 mls/hr DAILY@09 IV 05/19/24 09:00 05/27/24 09:38 100 MLS/HR Acetaminophen/ Hydrocodone Bitart 1 tab Q8HP PRN PO 05/19/24 14:30 05/22/24 22:26 1 TAB Furosemide 100 mg/ Sodium Chloride 110 ml @ 11 mls/hr Q10H IV 05/20/24 13:45 05/27/24 16:21 11 MLS/HR Spironolactone 25 mg DAILY PO 05/21/24 10:00 05/27/24 09:39 25 MG Apixaban 10 mg BID PO 05/23/24 12:30 05/29/24 22:01 05/27/24 22:12 10 MG Apixaban 5 mg BID PO 05/30/24 10:00 Midazolam HCl 50 ml @ 1 mls/hr Q24H IV 05/26/24 22:00 05/27/24 15:37 12 MLS/HR Fentanyl Citrate 250 ml @ 2.5 mls/hr Q24H IV 05/26/24 22:00 05/26/24 22:00 7.5 MLS/HR Norepinephrine Bitartrate 250 ml @ 3.75 mls/hr Q24H IV 05/26/24 22:00 05/27/24 22:00 26.25 MLS/HR Potassium Chloride 100 ml @ 50 mls/hr Q2H IV 05/27/24 17:15 05/28/24 01:14 UNV Potassium Chloride 100 ml @ 50 mls/hr Q2H IV 05/27/24 17:30 05/28/24 01:29 05/27/24 21:30 50 MLS/HR objective Gen.: Patient lying in bed in medical ICU. Sedated, intubated on mechanical ventilator. Head: Normocephalic, atraumatic. Eyes: PERRLA. Ears: Normal external anatomy. Throat: Endotracheal tube and orogastric tube in place. Neck: Supple, trachea midline. Chest: Transmitted breath sounds bilaterally. Decreased air entry bilaterally. No wheezing. Bibasilar crackles. Cardio vascular: Positive S1, positive S2. Regular rate and rhythm. Abdomen: Positive bowel sounds in all 4 quadrants. Soft, nontender, nondistended. : Olsen in place. Normal external genitalia. Rectal: Deferred Skin: Warm, dry. Intact. Extremities: 2+ radial pulses bilaterally. No lower extremity edema. Neuro: Sedated. laboratory and microbiology Laboratory Tests 05/27/24 15:56 05/27/24 03:00 Test 05/27/24 03:00 Range/Units Serum Glucose 110 H 74-106 mg/dL Assessment/Plan Impression: Acute hypoxic respiratory failure Mechanical ventilator Pleural effusion, right Atelectasis CHF exacerbation Pulmonary embolism Obesity with a BMI of 30.1 Events: Remains on vent support On assist control with respiratory rate of 20, tidal volume 400, PEEP of 8, FiO2 at 40%. Sedated on Versed, Fentanyl ABG reviewed, notable for alkalemia CXR demonstrates patchy bilateral pulmonary opacities, small right pleural effusion. Devices in place. Taper sedation S/p cardioversion On pressors for hemodynamic support. Levophed 12 mcg/min Titrate to keep MAP above 65 mmHg/SBP above 90 mmHg. Lasix drip for diuresis Potassium supplementation Monitor renal function Monitor electrolytes. Supplement as necessary. Monitor ins and outs. Labs and imaging reviewed. Rest of plan as noted below. Plan: s/p intubation on mechanical ventilator Status post right thoracentesis with removal of 2200 mL ABG reviewed. Alkalemia due to contraction alkalosis. Hypoxemia with a PO2 of 42 mmHg. Patient was emergently intubated and placed on mechanical ventilation. Placed on assist control with respiratory rate of 20, tidal volume 400, PEEP of 8, FiO2 at 40%. Titrate FIO2 to keep O2 saturation above 92%. VAP bundle Daily ABG and CXR while intubated. Sedate for ventilatory synchrony On pressors for hemodynamic support. Titrate to keep MAP above 65 mmHg/SBP above 90 mmHg. Continue antibiotics. F/u cultures. Diuresis with Lasix drip Monitor renal function due to Acute kidney injury. Monitor electrolytes. Supplement as necessary. Monitor ins and outs Cardiology recommendations appreciated. Nutritional support. Accucheks, ISS. GI/DVT prophylaxis. Condition: Critical Prognosis: Poor given multiple comorbidities. Rest of plan per hospitalist and other consultants. A total of 35 minutes of critical care time was spent reviewing the patient record, examining the patient, making a diagnostic and therapeutic plan, discussing this plan with the medical personnel, following up on diagnostic studies and following the patient for clinical stability excluding any and all procedures. At least 50% of this time was spent in direct, [id number] contact. Thank you Dr. Conn for allowing me to participate in this patient's care. Further recommendations will depend on patient's clinical course. Please do not hesitate to contact me if you have any questions or concerns. This medical document was created using an electronic medical record system with [employer] dictation system. Although this document has been carefully reviewed, there may still be some phonetic and typographical errors. These areas are purely typographical due to imperfections of the software programs, and do not reflect any compromise in the patient's medical care. Dietary Evaluation Review Comments: 1. consider Renal Specific 70g protein restriction witn 2GNa, 3K, low Phos, if no diaylsis needed. 2. consider Renal Standard 2gn, 3K, low phosphate diet if Pt is on dialysis. 3. encourage and monitor po intake to meet 75% of his needs. Expected Outcomes/Goals: avoid uremic symptoms, gradual healed wounds. Plan discussed with: Other (CALEB Kolb) Critical Care Time(min): 35 BOGDAN MANN MD May 27, 2024 22:53
[2024-05-28] VITALS (105 sets, daily range): BP systolic 78–148; BP diastolic 43–67; PULSE 65–82; RESP 11–21; TEMP 98.1–98.5; O2SAT 92–100
[2024-05-28 02:19] LABS: Base Excess 19.1 mmol/L (-2.0-3.0)
[2024-05-28 06:38] LABS: Alkaline Phosphatase 99 U/L (46-116); Calcium 9.2 mg/dL (8.7-10.4); Chloride 105 mmol/L (98-107); Glucose 93 mg/dL (74-106)
[2024-05-28 06:43] LABS: BUN/Creatinine Ratio 41.5 (10.0-20.0)
[2024-05-28 06:45] LABS: Anion Gap 10.99999 (5-15); Aspartate Aminotransferase 98 U/L (13-40); Bilirubin, Total 3.1 mg/dL (0.2-1.0); Sodium 156 mmol/L (136-145); Total Protein 5.3 g/dL (5.7-8.2)
[2024-05-28 06:47] LABS: Carbon Dioxide > 40 mmol/L (20-31)
[2024-05-28 06:50] LABS: Alanine Aminotransferase 50 U/L (7-40); Albumin 2.6 g/dL (3.2-4.8); Blood Urea Nitrogen 39 mg/dL (9-23)
[2024-05-28 06:57] LABS: Basophils # (auto) 0 10 ^3/uL (0-0.2); Basophils % (auto) 0.3 % (0.0-2.0); Eosinophils # (auto) 0.2 10 ^3/uL (0-0.8); Eosinophils % (auto) 1.6 % (0.0-7.0); Hemoglobin 15.5 g/dL (13.5-17.5); Lymphocytes # (auto) 0.6 10 ^3/uL (0.4-5.4); Lymphocytes % (auto) 5.8 % (10.0-50.0); Mean Corpuscular Hemoglobin 27.3 pg (28.0-32.0); Mean Corpuscular Hgb Conc. 32.2 g/dL (32.0-36.0); Mean Corpuscular Volume 84.8 fL (80.0-100.0); Monocytes # (auto) 0.5 10 ^3/uL (0-1.3); Monocytes % (auto) 5.2 % (0.0-12.0); Neutrophils # (auto) 8.3 10 ^3/uL (1.6-8.6); Neutrophils % (auto) 87.1 % (37.0-80.0); Nucleated Red Blood Cells % 0.2 %; Platelet Count (auto) 76 10^3/uL (140-450); Red Blood Cells 5.66 10^6/uL (4.5-5.90); Red Cell Distribution Width 18.2 % (11.8-14.3); White Blood Cell 9.6 10^3/uL (4.4-10.8)
--- NOTE | 2024-05-28 10:36 | DVH ---
CHEST RADIOGRAPH Indication: ET TUBE PLACEMENT Technique: Single frontal view of the chest was obtained COMPARISON: XY CHEST PORTABLE on DOS: 05/27/24, XY CHEST PORTABLE on DOS: 05/26/24, XY CHEST PORTABLE on DOS: 05/26/24, XY CHEST XRAY 1 VIEW on DOS: 05/26/24, XY CHEST PORTABLE on DOS: 05/24/24 FINDINGS: Lines and Tubes: Endotracheal tube, enteric catheter and left central venous catheter in satisfactory position. Lungs: Multifocal airspace disease. Pleura: Small right pleural effusion. No pneumothorax. Cardiomediastinal contours: Unremarkable Bones: Unremarkable IMPRESSION: Lines and tubes in satisfactory position. No significant interval change.
[2024-05-28] MEDS ORDERED: ALBUMIN 25% 100 ML IV ONE (13:30)
--- NOTE | 2024-05-28 14:27 | DVHPN2 ---
Progress Note - Dictate Date Seen: May 28, 2024 Medical Necessity Reason Pt with a Central, PICC or Fol: Yes The following are medically ne: Burk Catheter Subjective PT WITH SS COMPLEX INCRESEING SOB HARVEY LE EDEMA HFrEF CHRONIC AND ACUTE NOW WITH HEMOPTYSIS TACHYCARDIA CTA LUNG C/W PE ACUTE vital signs Vital Sign Date Time Temp Pulse Resp B/P (MAP) Pulse Ox O2 Delivery O2 Flow Rate FiO2 05/28/24 14:00 30 05/28/24 14:00 80 05/28/24 14:00 20 96 Mechanical Ventilator+ 05/28/24 13:46 96/57 05/28/24 00:00 98.1 98.1 05/26/24 20:00 15 Total Intake and Output 05/27/24 05/27/24 05/28/24 15:00 23:00 07:00 Intake Total 600.75 ml 540.25 ml 467.25 ml Output Total 1650 ml 2250 ml Balance 600.75 ml -1109.75 ml -1782.75 ml medications Current Medications Medications Dose Ordered Sig/Amy Route Start Time Stop Time Status Last Admin Dose Admin Digoxin 0.125 mg DAILY PO 05/19/24 10:00 05/26/24 08:12 0.125 MG Ceftriaxone Sodium 50 ml @ 100 mls/hr DAILY@09 IV 05/19/24 09:00 05/28/24 09:01 100 MLS/HR Acetaminophen/ Hydrocodone Bitart 1 tab Q8HP PRN PO 05/19/24 14:30 05/22/24 22:26 1 TAB Spironolactone 25 mg DAILY PO 05/21/24 10:00 05/28/24 10:28 25 MG Apixaban 10 mg BID PO 05/23/24 12:30 05/29/24 22:01 05/28/24 10:28 10 MG Apixaban 5 mg BID PO 05/30/24 10:00 Midazolam HCl 50 ml @ 1 mls/hr Q24H IV 05/26/24 22:00 05/28/24 13:46 5 MLS/HR Fentanyl Citrate 250 ml @ 2.5 mls/hr Q24H IV 05/26/24 22:00 05/28/24 02:34 7.5 MLS/HR Norepinephrine Bitartrate 250 ml @ 3.75 mls/hr Q24H IV 05/26/24 22:00 05/28/24 09:00 22.5 MLS/HR Potassium Chloride 100 ml @ 50 mls/hr Q2H IV 05/27/24 17:15 05/28/24 01:14 UNV objective PUL DIFF RHONCHI JVD ANGLE OF THE JAW CV RR PMI DIFFUSE EXT 3+ EDEMA laboratory and microbiology Laboratory Tests 05/28/24 08:23 05/28/24 05:30 Test 05/28/24 05:30 Range/Units Serum Glucose 93 74-106 mg/dL Problem List SS COMPLEX INCRESEING SOB HARVEY LE EDEMA HFrEF CHRONIC AND ACUTE EF < 20% NOW WITH HEMOPTYSIS TACHYCARDIA CTA LUNG C/W PE 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 Large filling defect right pulmonary artery consistent with pulmonary embolus. No film findings of pulmonary artery hypertension. No pulmonary emboli noted on the left. 2. Findings are also suggestive of right heart strain. 3. Large right pleural effusion. HEPARIN DRIP\ LASIX DRIP WILL START ORAL ANTICOAGULATION IN 48 HOURS ABX LE ARTERIAL DOPPLER NO SIGNIFICANT DISEASE FOR LIMB RISK DC HEPARIN START ELIQUIS S/P CT HEAD CURRENTLY ON BiPAP IMPROVING RESP STATUS 7.32/59/69 TITRATE BIPAP THORACENTESIS ULTRASOUND GUIDED MRI OF ABD S/P THORACENTESIS 2200 CC DRAINED CXR BILATERAL INFILTRATE PROMINENT MEDIASTINUM CARDIOMEGALY HYPOKALEMIA BEING CORRECTED A FLUTTER S/P CARDIOVERSION SINUS RHYTHM TITRATE OFF LEVOPHED USE ALBUMIN FOR PRESSURE SUPORT DC LASIX DRIP Dietary Evaluation Review Comments: 1. consider Renal Specific 70g protein restriction witn 2GNa, 3K, low Phos, if no diaylsis needed. 2. consider Renal Standard 2gn, 3K, low phosphate diet if Pt is on dialysis. 3. encourage and monitor po intake to meet 75% of his needs. Expected Outcomes/Goals: avoid uremic symptoms, gradual healed wounds. Plan discussed with: Patient, Other Critical Care Time(min): 35 ISSAC SHAH MD May 28, 2024 14:27
[2024-05-28] MEDS: ALBUMIN 25% 100 ML IV ONE ×2 (14:37→18:14)
--- NOTE | 2024-05-28 20:50 | DVHNC2 ---
Procedure - Therapeutic Bronchoscopy procedure note: Indications: Bloody ET tube secretions, evaluate for active hemorrhage. Medicines: See WINDOW SHADE ESTIMATOR notes. Complications: None Procedure: Patient medications and allergies reviewed. The risks and benefits of the procedure and the sedation options and risk were discussed with the patient's healthcare proxy. All questions were answered and informed consent was obtained. Patient identification and proposed procedure were verified prior to the procedure by the physician, and a nurse, and the respiratory therapist in IC U room. The heart rate, respiratory rate, oxygen saturations, blood pressure, adequacy of pulmonary ventilation, and response to care were monitored throughout the procedure. The physical status of the patient was reassessed after the procedure. After obtaining informed consent, the bronchoscope was introduced through the endotracheal tube and advanced into the trachea bronchial tree of both lungs. The procedure was accomplished without difficulty. The patient tolerated the procedure well. Findings: The trachea is in normal caliber. The fredo is sharp. The tracheobronchial tree of the right lung was examined to at least the first subsegmental level. The bronchial mucosa and anatomy in the right lung are normal. There are no en dobronchial lesions. There was bloody secretions from right main stem bronchus onward throughout R1-R10. Cold saline 10 mL applied in Right upper lobe, right middle lobe and right lower lobe. Improvement in mucosal hemorrhage. The left upper lobe, lingula, and left lower lobe were examined to at least the first subsegmental level. Bronchial mucosa and anatomy in the left upper lobe and lingula are normal. There were no endobronchial lesions. There was copious whitish secretions from left main stem bronchus onward throughout L1-L10. Cold saline 10 mL applied in Left upper lobe, lingula and left lower lobe. Improvement in mucosal hemorrhage. There was no active bleeding at the completion of the procedure. Estimated blood loss: Less than 5 mL. Impression: Bloody secretions from L1-L10 and R1-R10 Recommendation: Follow-up RML BAL results. Procedure codes: 26482, bronchoscopy, rigid and flexible, including fluoroscopic guidance, one performed; with bronchial endobronchial removal of secretions, single or multiple sites BOGDAN MANN MD May 28, 2024 20:50
--- NOTE | 2024-05-28 22:24 | DVHPN2 ---
Progress Note - Dictate Date Seen: May 28, 2024 Medical Necessity Reason Pt with a Central, PICC or Fol: Yes The following are medically ne: Olsen Catheter Reason for olsen catheter: Strict I&O Subjective Patient seen and examined at bedside. Sedated, intubated on mechanical ventilator. Overnight events reviewed. vital signs Vital Sign Date Time Temp Pulse Resp B/P (MAP) Pulse Ox O2 Delivery O2 Flow Rate FiO2 05/28/24 21:51 69 20 104/59 (74) 100 30 05/28/24 18:00 Mechanical Ventilator+ 05/28/24 15:30 98.5 98.5 05/26/24 20:00 15 Total Intake and Output 05/27/24 05/27/24 05/28/24 15:00 23:00 07:00 Intake Total 600.75 ml 540.25 ml 467.25 ml Output Total 1650 ml 2250 ml Balance 600.75 ml -1109.75 ml -1782.75 ml medications Current Medications Medications Dose Ordered Sig/Amy Route Start Time Stop Time Status Last Admin Dose Admin Digoxin 0.125 mg DAILY PO 05/19/24 10:00 05/26/24 08:12 0.125 MG Ceftriaxone Sodium 50 ml @ 100 mls/hr DAILY@09 IV 05/19/24 09:00 05/28/24 09:01 100 MLS/HR Spironolactone 25 mg DAILY PO 05/21/24 10:00 05/28/24 10:28 25 MG Apixaban 10 mg BID PO 05/23/24 12:30 05/29/24 22:01 05/28/24 10:28 10 MG Apixaban 5 mg BID PO 05/30/24 10:00 Midazolam HCl 50 ml @ 1 mls/hr Q24H IV 05/26/24 22:00 05/28/24 13:46 5 MLS/HR Fentanyl Citrate 250 ml @ 2.5 mls/hr Q24H IV 05/26/24 22:00 05/28/24 02:34 7.5 MLS/HR Norepinephrine Bitartrate 250 ml @ 3.75 mls/hr Q24H IV 05/26/24 22:00 05/28/24 21:16 18.75 MLS/HR Potassium Chloride 100 ml @ 50 mls/hr Q2H IV 05/27/24 17:15 05/28/24 01:14 UNV objective Gen.: Patient lying in bed in medical ICU. Sedated, intubated on mechanical ventilator. Head: Normocephalic, atraumatic. Eyes: PERRLA. Ears: Normal external anatomy. Throat: Endotracheal tube and orogastric tube in place. Neck: Supple, trachea midline. Chest: Transmitted breath sounds bilaterally. Decreased air entry bilaterally. No wheezing. Bibasilar crackles. Cardio vascular: Positive S1, positive S2. Regular rate and rhythm. Abdomen: Positive bowel sounds in all 4 quadrants. Soft, nontender, nondistended. : Olsen in place. Normal external genitalia. Rectal: Deferred Skin: Warm, dry. Intact. Extremities: 2+ radial pulses bilaterally. No lower extremity edema. Neuro: Sedated. laboratory and microbiology Laboratory Tests 05/28/24 08:23 05/28/24 05:30 Test 05/28/24 05:30 Range/Units Serum Glucose 93 74-106 mg/dL Assessment/Plan Impression: Acute hypoxic respiratory failure Mechanical ventilator Pleural effusion, right Atelectasis CHF exacerbation Pulmonary embolism Obesity with a BMI of 30.1 Events: Remains on vent support On assist control with respiratory rate of 20, tidal volume 400, PEEP of 8, FiO2 at 30%. Sedated on Versed, Fentanyl ABG reviewed, notable for alkalemia CXR demonstrates patchy Multifocal airspace disease. Small right pleural effusion. Devices in place. S/p cardioversion on 05/27/24 On pressors for hemodynamic support. Levophed 10 mcg/min Titrate to keep MAP above 65 mmHg/SBP above 90 mmHg. Albumin x2 given Increased bloody secretions via ET tube. Obtain consent for bronchoscopy to remove mucous plugs. On Eliquis for PE. Lasix drip for diuresis Monitor renal function Monitor electrolytes. Supplement as necessary. Monitor ins and outs. Labs and imaging reviewed. Rest of plan as noted below. Plan: s/p intubation on mechanical ventilator Status post right thoracentesis with removal of 2200 mL ABG reviewed. Alkalemia due to contraction alkalosis. Hypoxemia with a PO2 of 42 mmHg. Patient was emergently intubated and placed on mechanical ventilation. Currently on assist control with respiratory rate of 20, tidal volume 400, PEEP of 8, FiO2 at 30%. Titrate FIO2 to keep O2 saturation above 92%. VAP bundle Daily ABG and CXR while intubated. Sedate for ventilatory synchrony On pressors for hemodynamic support. Titrate to keep MAP above 65 mmHg/SBP above 90 mmHg. Continue antibiotics. F/u cultures. Diuresis with Lasix drip Monitor renal function due to Acute kidney injury. Monitor electrolytes. Supplement as necessary. Monitor ins and outs Cardiology recommendations appreciated. Nutritional support. Accucheks, ISS. GI/DVT prophylaxis. Condition: Critical Prognosis: Poor given multiple comorbidities. Rest of plan per hospitalist and other consultants. A total of 35 minutes of critical care time was spent reviewing the patient record, examining the patient, making a diagnostic and therapeutic plan, discussing this plan with the medical personnel, following up on diagnostic studies and following the patient for clinical stability excluding any and all procedures. At least 50% of this time was spent in direct, [id number] contact. Thank you Dr. Conn for allowing me to participate in this patient's care. Further recommendations will depend on patient's clinical course. Please do not hesitate to contact me if you have any questions or concerns. This medical document was created using an electronic medical record system with [employer] dictation system. Although this document has been carefully reviewed, there may still be some phonetic and typographical errors. These areas are purely typographical due to imperfections of the software programs, and do not reflect any compromise in the patient's medical care. Dietary Evaluation Review Comments: 1. consider Renal Specific 70g protein restriction witn 2GNa, 3K, low Phos, if no diaylsis needed. 2. consider Renal Standard 2gn, 3K, low phosphate diet if Pt is on dialysis. 3. encourage and monitor po intake to meet 75% of his needs. Expected Outcomes/Goals: avoid uremic symptoms, gradual healed wounds. Plan discussed with: Other (CALEB Erazo) Critical Care Time(min): 35 BOGDAN MANN MD May 28, 2024 22:24
[2024-05-29] VITALS (102 sets, daily range): BP systolic 70–162; BP diastolic 27–69; PULSE 64–83; RESP 11–26; TEMP 95.9–98.6; O2SAT 82–100
[2024-05-29 06:44] LABS: Base Excess 17.8 mmol/L (-2.0-3.0)
[2024-05-29 10:26] LABS: Calcium 9.2 mg/dL (8.7-10.4)
[2024-05-29 10:30] LABS: Anion Gap 9.99999 (5-15); Chloride 110 mmol/L (98-107); Potassium 3.3 mmol/L (3.5-5.1); Sodium 160 mmol/L (136-145)
[2024-05-29 10:31] LABS: BUN/Creatinine Ratio 47.2 (10.0-20.0); Carbon Dioxide > 40 mmol/L (20-31); Glucose 87 mg/dL (74-106)
[2024-05-29 10:32] LABS: Blood Urea Nitrogen 34 mg/dL (9-23)
[2024-05-29 10:46] LABS: Basophils # (auto) 0 10 ^3/uL (0-0.2); Eosinophils # (auto) 0.1 10 ^3/uL (0-0.8); Eosinophils % (auto) 1.6 % (0.0-7.0); Hemoglobin 13.5 g/dL (13.5-17.5); Lymphocytes # (auto) 0.5 10 ^3/uL (0.4-5.4); Lymphocytes % (auto) 6.1 % (10.0-50.0); Monocytes # (auto) 0.4 10 ^3/uL (0-1.3); Monocytes % (auto) 4.8 % (0.0-12.0); Nucleated Red Blood Cells % 0.3 %
[2024-05-29 10:50] LABS: Basophils % (auto) 0.1 % (0.0-2.0); Hematocrit 42.8 % (41.0-53.0); Mean Corpuscular Hemoglobin 27.3 pg (28.0-32.0); Mean Corpuscular Hgb Conc. 31.6 g/dL (32.0-36.0); Mean Corpuscular Volume 86.4 fL (80.0-100.0); Neutrophils # (auto) 6.9 10 ^3/uL (1.6-8.6); Neutrophils % (auto) 87.4 % (37.0-80.0); Platelet Count (auto) 49 10^3/uL (140-450); Red Blood Cells 4.95 10^6/uL (4.5-5.90); Red Cell Distribution Width 18.3 % (11.8-14.3); White Blood Cell 7.9 10^3/uL (4.4-10.8)
--- NOTE | 2024-05-29 13:07 | DVHPN2 ---
Progress Note - Dictate Date Seen: May 29, 2024 Medical Necessity Reason Pt with a Central, PICC or Fol: Yes The following are medically ne: Olsen Catheter Reason for olsen catheter: Strict I&O Subjective PT WITH SS COMPLEX INCRESEING SOB HARVEY LE EDEMA HFrEF CHRONIC AND ACUTE NOW WITH HEMOPTYSIS TACHYCARDIA CTA LUNG C/W PE ACUTE vital signs Vital Sign Date Time Temp Pulse Resp B/P (MAP) Pulse Ox O2 Delivery O2 Flow Rate FiO2 05/29/24 12:22 96/41 05/29/24 11:24 74 20 97 30 05/29/24 08:00 Mechanical Ventilator+ 05/29/24 04:00 98.0 98.0 Total Intake and Output 05/28/24 05/28/24 05/29/24 15:00 23:00 07:00 Intake Total 476.25 ml 250.00 ml 241.25 ml Output Total 850 ml 1450 ml 650 ml Balance -373.75 ml -1200.00 ml -408.75 ml medications Current Medications Medications Dose Ordered Sig/Amy Route Start Time Stop Time Status Last Admin Dose Admin Digoxin 0.125 mg DAILY PO 05/19/24 10:00 05/29/24 09:58 0.125 MG Ceftriaxone Sodium 50 ml @ 100 mls/hr DAILY@09 IV 05/19/24 09:00 05/29/24 09:01 100 MLS/HR Spironolactone 25 mg DAILY PO 05/21/24 10:00 05/29/24 09:58 25 MG Apixaban 10 mg BID PO 05/23/24 12:30 05/29/24 22:01 05/29/24 09:59 10 MG Apixaban 5 mg BID PO 05/30/24 10:00 Midazolam HCl 50 ml @ 1 mls/hr Q24H IV 05/26/24 22:00 05/29/24 08:07 5 MLS/HR Fentanyl Citrate 250 ml @ 2.5 mls/hr Q24H IV 05/26/24 22:00 05/29/24 08:02 7.5 MLS/HR Norepinephrine Bitartrate 250 ml @ 3.75 mls/hr Q24H IV 05/26/24 22:00 05/29/24 12:22 15 MLS/HR Potassium Chloride 100 ml @ 50 mls/hr Q2H IV 05/27/24 17:15 05/28/24 01:14 UNV objective PUL DIFF RHONCHI JVD ANGLE OF THE JAW CV RR PMI DIFFUSE EXT 3+ EDEMA laboratory and microbiology Laboratory Tests 05/29/24 04:55 Test 05/29/24 04:55 Range/Units Serum Glucose 87 74-106 mg/dL Problem List SS COMPLEX INCRESEING SOB HARVEY LE EDEMA HFrEF CHRONIC AND ACUTE EF < 20% NOW WITH HEMOPTYSIS TACHYCARDIA CTA LUNG C/W PE 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 Large filling defect right pulmonary artery consistent with pulmonary embolus. No film findings of pulmonary artery hypertension. No pulmonary emboli noted on the left. 2. Findings are also suggestive of right heart strain. 3. Large right pleural effusion. HEPARIN DRIP\ LASIX DRIP WILL START ORAL ANTICOAGULATION IN 48 HOURS ABX LE ARTERIAL DOPPLER NO SIGNIFICANT DISEASE FOR LIMB RISK DC HEPARIN START ELIQUIS S/P CT HEAD CURRENTLY ON BiPAP IMPROVING RESP STATUS 7.32/59/69 TITRATE BIPAP THORACENTESIS ULTRASOUND GUIDED MRI OF ABD S/P THORACENTESIS 2200 CC DRAINED CXR BILATERAL INFILTRATE PROMINENT MEDIASTINUM CARDIOMEGALY HYPOKALEMIA BEING CORRECTED A FLUTTER S/P CARDIOVERSION SINUS RHYTHM TITRATE OFF LEVOPHED USE ALBUMIN FOR PRESSURE SUPORT DC LASIX DRIP START D5 1/4 NS AT 125 CC/HR BMP/ BNP DAILY Dietary Evaluation Review Comments: 1. consider Renal Specific 70g protein restriction witn 2GNa, 3K, low Phos, if no diaylsis needed. 2. consider Renal Standard 2gn, 3K, low phosphate diet if Pt is on dialysis. 3. encourage and monitor po intake to meet 75% of his needs. Expected Outcomes/Goals: avoid uremic symptoms, gradual healed wounds. Plan discussed with: Patient, Other Critical Care Time(min): 35 ISSAC SHAH MD May 29, 2024 13:07
--- NOTE | 2024-05-29 13:10 | DVHHP2 ---
Admitting Diagnosis: CHEST PAIN HARVEY LE EDEMA History of Present Illness SS COMPLEX INCRESEING SOB HARVEY LE EDEMA HFrEF CHRONIC AND ACUTE NOW WITH HEMOPTYSIS TACHYCARDIA CTA LUNG C/W PE ACUTE Patient Family History: Patient reports no known family medical history. Allergies: Coded Allergies: NO KNOWN ALLERGIES (Unverified , 03/11/24) Home Meds Active Scripts Bumetanide (Bumetanide) 2 Mg Tab, 1 TAB PO BID for 30 Days, #60 TAB 0 Refills Prov:FARHAD FLORES MD 03/19/24 Metoprolol Succinate (Metoprolol Succinate Er) 50 Mg Tab, 1 TAB PO DAILY for 30 Days, #30 TAB 5 Refills Prov:FARHAD FLORES MD 03/19/24 Sacubitril-Valsartan (Entresto 24-26 mg) 1 Tab Tab, 1 TAB PO BID for 30 Days, #60 TAB Prov:FARHAD FLORES MD 03/19/24 Doxycycline Monohydrate (Doxycycline Monohydrate) 100 Mg Cap, 1 CAP PO BID for 14 Days, #28 CAP Prov:FARHAD FLORES MD 03/19/24 Reported Medications Spironolactone (Spironolactone) 50 Mg Tab, 1 TAB PO DAILY for 30 Days, #30 05/21/24 Ursodiol (Ursodiol) 300 Mg Cap, 1 TAB PO BID for 90 Days, #180 03/18/24 Terbinafine Hcl (Terbinafine Hcl) 250 Mg Tab, 1 TAB PO DAILY for 90 Days, #90 03/18/24 Furosemide (Furosemide) 20 Mg Tab, 1 TAB PO DAILY, #90 TAB 1 Refill 03/12/24 Terbinafine Hcl (Topical) (Lamisil At [employer] [facility]) 1 % Cre, 1 % EX, CRE 03/12/24 Losartan Potassium (Losartan Potassium) 50 Mg Tab, 1 TAB PO DAILY, #30 TAB 5 Refills 03/12/24 Current Medications Current Medications Medications (Trade) Dose Ordered Sig/Amy Route PRN Reason Start Time Stop Time Status Last Admin Apixaban (Eliquis) 5 mg BID PO 05/30/24 10:00 Vital Signs Vital Signs Date Time Temp Pulse Resp B/P (MAP) Pulse Ox O2 Delivery O2 Flow Rate FiO2 05/29/24 12:22 96/41 05/29/24 11:24 74 20 97 30 05/29/24 08:00 Mechanical Ventilator+ 05/29/24 04:00 98.0 98.0 Physical Exam PUL DIFF RHONCHI JVD ANGLE OF THE JAW CV RR PMI DIFFUSE EXT 3+ EDEMA Results Labs Test 05/29/24 06:36 05/29/24 04:55 05/28/24 08:23 05/28/24 05:30 Range/Units Blood Gas Specimen Type Arterial Blood Gas Sample Site Arterial line Blood Gas Patient Temperature 37.0 Arterial Blood Date Drawn [id number] Arterial Blood pH 7.485 H 7.350-7.450 Arterial Blood Partial Pressure CO2 60.7 *H 35.0-48.0 mmHg Arterial Blood Partial Pressure O2 77.4 L 83.0-108.0 mmHg Arterial Blood HCO3 44.7 H 21.0-28.0 mmol/L Arterial Blood Oxygen Saturation 94.9 94.0-98.0 % Arterial Blood Base Excess 17.8 H -2.0-3.0 mmol/L Arterial Blood Oxyhemoglobin 92.5 L 94.0-98.0 % Arterial Blood Carboxyhemoglobin 2.0 H 0.5-1.5 % Arterial Blood Methemoglobin 0.5 0.0-1.5 % Mark Test N/a Blood Gas Total Hemoglobin 14.60 13.5-17.5 g/dL Blood Gas Set Respiration Rate 20.0 Blood Gas Modality Vent - ac FiO2 % 30.0 Blood Gas Tidal Volume 400.0 Blood Gas PEEP or CPAP 8.0 Blood Gas Critical Value Read Back Yes Blood Gas Notified Whom Blood Gas Notified Time [id number] Blood Gas Notified By Trey peña White Blood Count 7.9 4.4-10.8 10^3/uL Red Blood Count 4.95 4.5-5.90 10^6/uL Hemoglobin 13.5 13.5-17.5 g/dL Hematocrit 42.8 # 41.0-53.0 % Mean Corpuscular Volume 86.4 80.0-100.0 fL Mean Corpuscular Hemoglobin 27.3 L 28.0-32.0 pg Mean Corpuscular Hemoglobin Concent 31.6 L 32.0-36.0 g/dL Red Cell Distribution Width 18.3 H 11.8-14.3 % Platelet Count 49 L 140-450 10^3/uL Mean Platelet Volume 9.2 6.9-10.8 fL Neutrophils (%) (Auto) 87.4 H 37.0-80.0 % Lymphocytes (%) (Auto) 6.1 L 10.0-50.0 % Monocytes (%) (Auto) 4.8 0.0-12.0 % Eosinophils (%) (Auto) 1.6 0.0-7.0 % Basophils (%) (Auto) 0.1 0.0-2.0 % Neutrophils # (Auto) 6.9 1.6-8.6 10 ^3/uL Lymphocytes # (Auto) 0.5 0.4-5.4 10 ^3/uL Monocytes # (Auto) 0.4 0-1.3 10 ^3/uL Eosinophils # (Auto) 0.1 0-0.8 10 ^3/uL Basophils # (Auto) 0 0-0.2 10 ^3/uL Nucleated Red Blood Cells 0.3 % Sodium Level 160 H 136-145 mmol/L Potassium Level 3.3 L 3.5-5.1 mmol/L Chloride Level 110 H 98-107 mmol/L Carbon Dioxide Level > 40 *H 20-31 mmol/L Anion Gap 9.36991 5-15 Blood Urea Nitrogen 34 H 9-23 mg/dL Creatinine 0.72 0.700-1.30 mg/dL Glomerular Filtration Rate Calc 103 >90 mL/min BUN/Creatinine Ratio 47.2 H 10.0-20.0 Serum Glucose 87 74-106 mg/dL Calcium Level 9.2 8.7-10.4 mg/dL Digoxin Level < 0.14 L 0.8-2 ng/mL Total Bilirubin 3.1 H 0.2-1.0 mg/dL Aspartate Amino Transferase (AST) 98 H 13-40 U/L Alanine Aminotransferase (ALT) 50 H 7-40 U/L Alkaline Phosphatase 99 46-116 U/L Total Protein 5.3 L 5.7-8.2 g/dL Albumin 2.6 L 3.2-4.8 g/dL Test 05/26/24 21:07 05/26/24 20:12 05/24/24 13:10 05/24/24 07:24 Range/Units Blood Gas Spontaneous Rate 20 Specimen Drawn By L sepulveda rt Body Fluid Source Pleural fluid Body Fluid pH 8.0 Body Fluid WBC (Manual) 59 0-200 CUMM Body Fluid RBC (Manual) 401 0-2000 CUMM Body Fluid Mononuclear Cells 60 % Body Fluid Polymorphonuclear Cells 40 H 0-25 % Body Fluid Glucose 118 . mg/dL Body Fluid Total Protein 2.0 . g/dL Body Fluid Lactate Dehydrogenase 183 . IU/L Blood Gas EPAP 5 Blood Gas IPAP 14 Blood Gas Liter Flow 5.00 Test 05/24/24 06:55 05/22/24 19:05 05/19/24 10:08 Range/Units Ammonia 22 11-32 umol/L B-Type Natriuretic Peptide > 5000.00 0-100 pg/mL Prothrombin Time 17.7 H 9.3-11.8 sec Prothrombin Time INR 1.74 H 0.9-1.15 Activated Partial Thromboplast Time 54.8 H 24.5-34.5 SEC Urine Color Yellow Yellow Urine Clarity Turbid H Clear Urine pH 5.0 5.0-9.0 Urine Specific [place] 1.012 1.001-1.035 Urine Protein 1+ H Negative Urine Ketones Negative Negative Urine Blood Negative Negative /uL Urine Nitrite Negative Negative Urine Bilirubin Negative Negative Urine Urobilinogen 3 H Negative mg/dL Urine Leukocyte Esterase Negative Negative /uL Urine RBC 1 0 - 3 /hpf Urine WBC 3 0 - 3 /hpf Urine Squamous Epithelial Cells Few <5 /hpf Urine Bacteria None seen None Seen /hpf Urine Hyaline Casts Many 0 - 2 /lpf Urine Mucus Few None Seen Urine Glucose Normal Normal mg/dL Microbiology Date/Time Source Procedure Growth Status 05/26/24 20:20 Sputum Gram Stain - Final Resulted 05/26/24 20:20 Sputum Respiratory Culture - Preliminary Resulted 05/26/24 20:12 Pleural Fluid Gram Stain - Final Resulted 05/26/24 20:12 Pleural Fluid Body Fluid Culture - Preliminary Resulted 05/19/24 02:50 Nose MRSA Screen - Final Complete Admitting Diagnosis: SS COMPLEX INCRESEING SOB HARVEY LE EDEMA HFrEF CHRONIC AND ACUTE EF < 20% NOW WITH HEMOPTYSIS TACHYCARDIA CTA LUNG C/W PE ACUTE OLD CVA HYPERCOAGULABLE STATE R/O MALIGNANCY Plan Assessment/Plan ECHO EF <20% LAE NERISSA SEVERE MR MOD TR MILD AI LVE MILD AV CALCIFICATION DILATED AORTIC ROOT ( 4.9cm) MOD PAH CXRLARGE RIGHT EFFUSION CONSOLIDATION CTA LUNG 1. Large filling defect right pulmonary artery consistent with pulmonary embolus. No film findings of pulmonary artery hypertension. No pulmonary emboli noted on the left. 2. Findings are also suggestive of right heart strain. 3. Large right pleural effusion. Plan discussed with: Patient, Other ISSAC SHAH MD May 29, 2024 13:10
[2024-05-29] MEDS: D5W/SOD CHL 0.2% 1,000 ML IV SCH (14:18)
[2024-05-29] MEDS: POTASSIUM CHL 20MEQ/100ML 100 ML IV ONE (16:57)
--- NOTE | 2024-05-29 20:49 | DVHPN2 ---
Progress Note - Dictate Date Seen: May 29, 2024 Medical Necessity Reason Pt with a Central, PICC or Fol: Yes The following are medically ne: Olsen Catheter Reason for olsen catheter: Strict I&O Subjective Patient seen and examined at bedside. Sedated, intubated on mechanical ventilator. Overnight events reviewed. vital signs Vital Sign Date Time Temp Pulse Resp B/P (MAP) Pulse Ox O2 Delivery O2 Flow Rate FiO2 05/29/24 20:25 68 18 117/51 (73) 100 30 05/29/24 18:00 Mechanical Ventilator+ 05/29/24 16:00 98.6 98.6 Total Intake and Output 05/28/24 05/28/24 05/29/24 15:00 23:00 07:00 Intake Total 476.25 ml 250.00 ml 265.00 ml Output Total 850 ml 1450 ml 650 ml Balance -373.75 ml -1200.00 ml -385.00 ml medications Current Medications Medications Dose Ordered Sig/May Route Start Time Stop Time Status Last Admin Dose Admin Digoxin 0.125 mg DAILY PO 05/19/24 10:00 05/29/24 09:58 0.125 MG Ceftriaxone Sodium 50 ml @ 100 mls/hr DAILY@09 IV 05/19/24 09:00 05/29/24 09:01 100 MLS/HR Spironolactone 25 mg DAILY PO 05/21/24 10:00 05/29/24 09:58 25 MG Apixaban 10 mg BID PO 05/23/24 12:30 05/29/24 22:01 05/29/24 09:59 10 MG Apixaban 5 mg BID PO 05/30/24 10:00 Midazolam HCl 50 ml @ 1 mls/hr Q24H IV 05/26/24 22:00 05/29/24 15:30 5 MLS/HR Fentanyl Citrate 250 ml @ 2.5 mls/hr Q24H IV 05/26/24 22:00 05/29/24 08:02 7.5 MLS/HR Norepinephrine Bitartrate 250 ml @ 3.75 mls/hr Q24H IV 05/26/24 22:00 05/29/24 12:22 15 MLS/HR Potassium Chloride 100 ml @ 50 mls/hr Q2H IV 05/27/24 17:15 05/28/24 01:14 UNV Dextrose/Sodium Chloride 1,000 ml @ 125 mls/hr Q8H IV 05/29/24 13:15 05/29/24 14:18 125 MLS/HR Potassium Chloride 100 ml @ 50 mls/hr Q2H IV 05/29/24 19:15 05/29/24 23:14 objective Gen.: Patient lying in bed in medical ICU. Sedated, intubated on mechanical ventilator. Head: Normocephalic, atraumatic. Eyes: PERRLA. Ears: Normal external anatomy. Throat: Endotracheal tube and orogastric tube in place. Neck: Supple, trachea midline. Chest: Transmitted breath sounds bilaterally. Decreased air entry bilaterally. No wheezing. Bibasilar crackles. Cardio vascular: Positive S1, positive S2. Regular rate and rhythm. Abdomen: Positive bowel sounds in all 4 quadrants. Soft, nontender, nondistended. : Olsen in place. Normal external genitalia. Rectal: Deferred Skin: Warm, dry. Intact. Extremities: 2+ radial pulses bilaterally. No lower extremity edema. Neuro: Sedated. laboratory and microbiology Laboratory Tests 05/29/24 04:55 Test 05/29/24 04:55 Range/Units Serum Glucose 87 74-106 mg/dL Assessment/Plan Impression: Acute hypoxic respiratory failure Mechanical ventilator Pleural effusion, right Atelectasis CHF exacerbation Pulmonary embolism Obesity with a BMI of 30.1 Events: Remains on vent support On assist control with respiratory rate of 18, tidal volume 400, PEEP of 8, FiO2 at 30%. Sedated on Versed, Fentanyl ABG reviewed, notable for alkalemia - RR tapered to 18 Repeat ABG in the AM CXR demonstrates Multifocal airspace opacities. Devices in place. S/p cardioversion on 05/27/24 On pressors for hemodynamic support. Levophed 8 mcg/min Titrate to keep MAP above 65 mmHg/SBP above 90 mmHg. Improving pressor requirements S/p bronchoscopy w/ RML BAL yesterday - Cleared bloody secretions from L1-L10 and R1-R10 See separate procedure note for details. On Eliquis for PE. Monitor renal function Monitor electrolytes. Supplement as necessary. Monitor ins and outs. Potassium supplementation Check mag, phos in AM. Labs and imaging reviewed. Rest of plan as noted below. Plan: s/p intubation on mechanical ventilator Status post right thoracentesis with removal of 2200 mL ABG reviewed. Alkalemia due to contraction alkalosis. Hypoxemia with a PO2 of 42 mmHg. Patient was emergently intubated and placed on mechanical ventilation. Currently on assist control with respiratory rate of 18, tidal volume 400, PEEP of 8, FiO2 at 30%. Titrate FIO2 to keep O2 saturation above 92%. VAP bundle Daily ABG and CXR while intubated. Sedate for ventilatory synchrony On pressors for hemodynamic support. Titrate to keep MAP above 65 mmHg/SBP above 90 mmHg. Continue antibiotics. F/u cultures. Monitor renal function due to Acute kidney injury. Monitor electrolytes. Supplement as necessary. Monitor ins and outs Maintain euvolemia Cardiology recommendations appreciated. Nutritional support. Accucheks, ISS. GI/DVT prophylaxis. Condition: Critical Prognosis: Poor given multiple comorbidities. Rest of plan per hospitalist and other consultants. A total of 35 minutes of critical care time was spent reviewing the patient record, examining the patient, making a diagnostic and therapeutic plan, discussing this plan with the medical personnel, following up on diagnostic studies and following the patient for clinical stability excluding any and all procedures. At least 50% of this time was spent in direct, [id number] contact. Thank you Dr. Conn for allowing me to participate in this patient's care. Further recommendations will depend on patient's clinical course. Please do not hesitate to contact me if you have any questions or concerns. This medical document was created using an electronic medical record system with [employer] dictation system. Although this document has been carefully reviewed, there may still be some phonetic and typographical errors. These areas are purely typographical due to imperfections of the software programs, and do not reflect any compromise in the patient's medical care. Dietary Evaluation Review Comments: 1. consider Renal Specific 70g protein restriction witn 2GNa, 3K, low Phos, if no diaylsis needed. 2. consider Renal Standard 2gn, 3K, low phosphate diet if Pt is on dialysis. 3. encourage and monitor po intake to meet 75% of his needs. Expected Outcomes/Goals: avoid uremic symptoms, gradual healed wounds. Plan discussed with: Other (CALEB Pride) Critical Care Time(min): 35 BOGDAN MANN MD May 29, 2024 20:49
[2024-05-29] MEDS: POTASSIUM CHL 20MEQ/100ML 100 ML IV SCH (21:11)
[2024-05-30] VITALS (120 sets, daily range): BP systolic 83–150; BP diastolic 38–69; PULSE 66–85; RESP 9–19; TEMP 97.3–99; O2SAT 94–100
--- NOTE | 2024-05-30 05:04 | DVH ---
CHEST RADIOGRAPH Indication: INTUBATED Technique: Single frontal view of the chest was obtained COMPARISON: XY CHEST PORTABLE on DOS: 05/28/24, XY CHEST PORTABLE on DOS: 05/27/24, XY CHEST PORTABLE on DOS: 05/26/24, XY CHEST PORTABLE on DOS: 05/26/24, XY CHEST XRAY 1 VIEW on DOS: 05/26/24, XY CHEST PORTABLE on DOS: 05/28/24 FINDINGS: Lines and Tubes: Endotracheal tube, enteric catheter and left central venous catheter in satisfactory position. Lungs: Multifocal airspace disease. Pleura: Small right pleural effusion. No pneumothorax. Cardiomediastinal contours: Unremarkable Bones: Unremarkable IMPRESSION: Lines and tubes in satisfactory position. No significant interval change.
[2024-05-30 06:43] LABS: Potassium 3.9 mmol/L (3.5-5.1)
[2024-05-30 06:47] LABS: Anion Gap 6.99999 (5-15); Calcium 8.4 mg/dL (8.7-10.4); Chloride 112 mmol/L (98-107); Sodium 159 mmol/L (136-145)
[2024-05-30 06:48] LABS: Carbon Dioxide > 40 mmol/L (20-31)
[2024-05-30 06:49] LABS: Glucose 127 mg/dL (74-106)
[2024-05-30 06:50] LABS: BUN/Creatinine Ratio 42.9 (10.0-20.0); Blood Urea Nitrogen 27 mg/dL (9-23)
[2024-05-30 07:00] LABS: Basophils # (auto) 0 10 ^3/uL (0-0.2); Eosinophils # (auto) 0.1 10 ^3/uL (0-0.8); Eosinophils % (auto) 1.8 % (0.0-7.0); Hemoglobin 9.7 g/dL (13.5-17.5); Lymphocytes # (auto) 0.5 10 ^3/uL (0.4-5.4); Monocytes # (auto) 0.4 10 ^3/uL (0-1.3); White Blood Cell 6.2 10^3/uL (4.4-10.8)
[2024-05-30 07:01] LABS: Phosphorus 1.3 mg/dL (2.4-5.1)
[2024-05-30 07:05] LABS: Basophils % (auto) 0.4 % (0.0-2.0); Hematocrit 31.1 % (41.0-53.0); Mean Corpuscular Hemoglobin 27.3 pg (28.0-32.0); Mean Corpuscular Hgb Conc. 31.3 g/dL (32.0-36.0); Mean Corpuscular Volume 87.3 fL (80.0-100.0); Monocytes % (auto) 6.3 % (0.0-12.0); Neutrophils # (auto) 5.1 10 ^3/uL (1.6-8.6); Neutrophils % (auto) 83.5 % (37.0-80.0); Nucleated Red Blood Cells % 0.1 %; Platelet Count (auto) 37 10^3/uL (140-450); Red Blood Cells 3.56 10^6/uL (4.5-5.90); Red Cell Distribution Width 18.2 % (11.8-14.3)
[2024-05-30 07:12] LABS: Base Excess 17.2 mmol/L (-2.0-3.0)
[2024-05-30] MEDS: APIXABAN 5 MG TAB PO SCH (09:56)
--- NOTE | 2024-05-30 10:22 | MEDREC ---
[facility] ASP Intervention Section I [facility] ASP Intervention: Review courses of therapy (THE FINAL RESPIRATORY CULTURE SHOWS PRESUMPTIVE MAME ALBICANS. THE X-RAY SHOWS MULTIFOCAL AIRSPACE DISEASE. PLEASE CONSIDER ADDING ANTIFUNGAL IF CLINICALLY APPROPRIATE) JOE MIRELES May 30, 2024 10:22
--- NOTE | 2024-05-30 11:47 | DVHPN2 ---
Progress Note - Dictate Date Seen: May 30, 2024 Medical Necessity Reason Pt with a Central, PICC or Fol: Yes The following are medically ne: Olsen Catheter Reason for olsen catheter: Strict I&O Subjective PT WITH SS COMPLEX INCRESEING SOB HARVEY LE EDEMA HFrEF CHRONIC AND ACUTE NOW WITH HEMOPTYSIS TACHYCARDIA CTA LUNG C/W PE ACUTE vital signs Vital Sign Date Time Temp Pulse Resp B/P (MAP) Pulse Ox O2 Delivery O2 Flow Rate FiO2 05/30/24 11:30 98.4 74 17 95/45 (62) 96 98.4 99/50 (66) 05/30/24 10:00 30 05/30/24 10:00 Mechanical Ventilator+ Total Intake and Output 05/29/24 05/29/24 05/30/24 15:00 23:00 07:00 Intake Total 387.50 ml 1370.0 ml 953.75 ml Output Total 680 ml 950 ml Balance 387.50 ml 690.0 ml 3.75 ml medications Current Medications Medications Dose Ordered Sig/Amy Route Start Time Stop Time Status Last Admin Dose Admin Digoxin 0.125 mg DAILY PO 05/19/24 10:00 05/30/24 09:57 0.125 MG Ceftriaxone Sodium 50 ml @ 100 mls/hr DAILY@09 IV 05/19/24 09:00 05/30/24 09:57 100 MLS/HR Spironolactone 25 mg DAILY PO 05/21/24 10:00 05/30/24 09:55 25 MG Apixaban 5 mg BID PO 05/30/24 10:00 05/30/24 09:56 5 MG Midazolam HCl 50 ml @ 1 mls/hr Q24H IV 05/26/24 22:00 05/30/24 06:27 5 MLS/HR Fentanyl Citrate 250 ml @ 2.5 mls/hr Q24H IV 05/26/24 22:00 05/29/24 08:02 7.5 MLS/HR Norepinephrine Bitartrate 250 ml @ 3.75 mls/hr Q24H IV 05/26/24 22:00 05/30/24 01:13 15 MLS/HR Potassium Chloride 100 ml @ 50 mls/hr Q2H IV 05/27/24 17:15 05/28/24 01:14 UNV Dextrose/Sodium Chloride 1,000 ml @ 125 mls/hr Q8H IV 05/29/24 13:15 05/30/24 10:02 125 MLS/HR objective PUL DIFF RHONCHI JVD ANGLE OF THE JAW CV RR PMI DIFFUSE EXT 3+ EDEMA laboratory and microbiology Laboratory Tests 05/30/24 06:10 Test 05/30/24 06:10 Range/Units Serum Glucose 127 H 74-106 mg/dL Problem List SS COMPLEX INCRESEING SOB HARVEY LE EDEMA HFrEF CHRONIC AND ACUTE EF < 20% NOW WITH HEMOPTYSIS TACHYCARDIA CTA LUNG C/W PE 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 Large filling defect right pulmonary artery consistent with pulmonary embolus. No film findings of pulmonary artery hypertension. No pulmonary emboli noted on the left. 2. Findings are also suggestive of right heart strain. 3. Large right pleural effusion. HEPARIN DRIP\ LASIX DRIP WILL START ORAL ANTICOAGULATION IN 48 HOURS ABX LE ARTERIAL DOPPLER NO SIGNIFICANT DISEASE FOR LIMB RISK DC HEPARIN START ELIQUIS S/P CT HEAD CURRENTLY ON BiPAP IMPROVING RESP STATUS 7.32/59/69 TITRATE BIPAP THORACENTESIS ULTRASOUND GUIDED MRI OF ABD S/P THORACENTESIS 2200 CC DRAINED CXR BILATERAL INFILTRATE PROMINENT MEDIASTINUM CARDIOMEGALY HYPOKALEMIA BEING CORRECTED A FLUTTER S/P CARDIOVERSION SINUS RHYTHM TITRATE OFF LEVOPHED USE ALBUMIN FOR PRESSURE SUPORT DC LASIX DRIP START D5 1/4 NS AT 125 CC/HR BMP/ BNP DAILY cont volume replacement contraction alkalosis leukocytosis improved monitor h/h Dietary Evaluation Review Comments: 1. consider Renal Specific 70g protein restriction witn 2GNa, 3K, low Phos, if no diaylsis needed. 2. consider Renal Standard 2gn, 3K, low phosphate diet if Pt is on dialysis. 3. encourage and monitor po intake to meet 75% of his needs. Expected Outcomes/Goals: avoid uremic symptoms, gradual healed wounds. Plan discussed with: Patient Critical Care Time(min): 35 ISSAC SHAH MD May 30, 2024 11:47
[2024-05-30] MEDS ORDERED: TPN PER PHARMACY 0 ML IV SCH (12:00)
[2024-05-30] MEDS ORDERED: DEXTROSE (50%) 50ML SYRG IV SCH (12:15)
[2024-05-30] MEDS ORDERED: POTASSIUM PHOSPHATE 26.4 MEQ in SODIUM CHL 0.9% 100 ML IV ONE (12:30)
[2024-05-30] MEDS: D5W/SOD CHL 0.2% 1,000 ML IV SCH ×2 (13:30→22:00)
[2024-05-30] MEDS: POTASSIUM PHOSPHATE 22 MEQ in SODIUM CHL 0.9% 100 ML IV ONE (13:45)
[2024-05-30] MEDS: ACCU-CHEK COMFORT CURVE STRIP VI SCH (18:00)
[2024-05-30] MEDS: InsuLIN REG 1unit/0.01ml Soln (100units/ml) SC SCH (18:00)
[2024-05-30] MEDS: TPN PER PHARMACY IV NR (22:00)
--- NOTE | 2024-05-30 23:14 | DVHPN2 ---
Progress Note - Dictate Date Seen: May 30, 2024 Medical Necessity Reason Pt with a Central, PICC or Fol: Yes The following are medically ne: Olsen Catheter Reason for olsen catheter: Strict I&O Subjective Patient seen and examined at bedside. Sedated, intubated on mechanical ventilator. Overnight events reviewed. vital signs Vital Sign Date Time Temp Pulse Resp B/P (MAP) Pulse Ox O2 Delivery O2 Flow Rate FiO2 05/30/24 22:00 76 18 122/51 (74) 100 30 05/30/24 19:00 98.2 98.2 05/30/24 18:00 Mechanical Ventilator+ Total Intake and Output 05/29/24 05/29/24 05/30/24 15:00 23:00 07:00 Intake Total 387.50 ml 1370.0 ml 953.75 ml Output Total 680 ml 950 ml Balance 387.50 ml 690.0 ml 3.75 ml medications Current Medications Medications Dose Ordered Sig/Amy Route Start Time Stop Time Status Last Admin Dose Admin Digoxin 0.125 mg DAILY PO 05/19/24 10:00 05/30/24 09:57 0.125 MG Spironolactone 25 mg DAILY PO 05/21/24 10:00 05/30/24 09:55 25 MG Apixaban 5 mg BID PO 05/30/24 10:00 05/30/24 09:56 5 MG Midazolam HCl 50 ml @ 1 mls/hr Q24H IV 05/26/24 22:00 05/30/24 17:12 4 MLS/HR Fentanyl Citrate 250 ml @ 2.5 mls/hr Q24H IV 05/26/24 22:00 05/30/24 17:10 7.5 MLS/HR Norepinephrine Bitartrate 250 ml @ 3.75 mls/hr Q24H IV 05/26/24 22:00 05/30/24 17:13 11.25 MLS/HR Potassium Chloride 100 ml @ 50 mls/hr Q2H IV 05/27/24 17:15 05/28/24 01:14 UNV Amino Acids 0 ml @ 0 mls/hr PER PHARMACY IV 05/30/24 12:00 Diagnostic Test (Pha) 1 strip Q6HR 05/30/24 18:00 05/30/24 18:00 1 STRIP Insulin Human Regular FOLLOW SLIDING SCALE Q6HR SC 05/30/24 18:00 Dextrose 50 ml UD IV 05/30/24 12:15 Fat Emulsion Intravenous 50 ml/ Potassium Phosphate 44 meq/ Magnesium Sulfate 8 meq/ Multivitamins 10 ml/Amino Acids/ Dextrose 1,072 ml @ 45 mls/hr [id number] IV 05/30/24 22:00 05/31/24 21:59 Dextrose/Sodium Chloride 1,000 ml @ 130 mls/hr [id number] IV 05/30/24 22:00 objective Gen.: Patient lying in bed in medical ICU. Sedated, intubated on mechanical ventilator. Head: Normocephalic, atraumatic. Eyes: PERRLA. Ears: Normal external anatomy. Throat: Endotracheal tube and orogastric tube in place. Neck: Supple, trachea midline. Chest: Transmitted breath sounds bilaterally. Decreased air entry bilaterally. No wheezing. Bibasilar crackles. Cardio vascular: Positive S1, positive S2. Regular rate and rhythm. Abdomen: Positive bowel sounds in all 4 quadrants. Soft, nontender, nondistended. : Olsen in place. Normal external genitalia. Rectal: Deferred Skin: Warm, dry. Intact. Extremities: 2+ radial pulses bilaterally. No lower extremity edema. Neuro: Sedated. laboratory and microbiology Laboratory Tests 05/30/24 06:10 Test 05/30/24 06:10 Range/Units Serum Glucose 127 H 74-106 mg/dL Assessment/Plan Impression: Acute hypoxic respiratory failure Mechanical ventilator Pleural effusion, right Atelectasis CHF exacerbation Pulmonary embolism Obesity with a BMI of 30.1 Events: Remains on vent support On assist control with respiratory rate of 18, tidal volume 400, PEEP of 8, FiO2 at 30%. Sedated on Versed, Fentanyl Start TPN for nutritional support ABG reviewed, compensated. CXR demonstrates Multifocal airspace opacities. Small right pleural effusion. Devices in place. S/p cardioversion on 05/27/24 On pressors for hemodynamic support. Levophed 4 mcg/min Titrate to keep MAP above 65 mmHg/SBP above 90 mmHg. Improving pressor requirements S/p bronchoscopy w/ RML BAL on 05/28/24 - Cleared bloody secretions from L1-L10 and R1-R10 See separate procedure note for details. On Eliquis for PE.- down to 5 mg PO BID Monitor renal function Monitor electrolytes. Supplement as necessary. Monitor ins and outs. K, phos supplementation Mag dropped from 13 to 9. IV fluids at 175 ml/hr Labs and imaging reviewed. Rest of plan as noted below. Plan: s/p intubation on mechanical ventilator Status post right thoracentesis with removal of 2200 mL ABG reviewed. Alkalemia due to contraction alkalosis. Hypoxemia with a PO2 of 42 mmHg. Patient was emergently intubated and placed on mechanical ventilation. Currently on assist control with respiratory rate of 18, tidal volume 400, PEEP of 8, FiO2 at 30%. Titrate FIO2 to keep O2 saturation above 92%. VAP bundle Daily ABG and CXR while intubated. Sedate for ventilatory synchrony On pressors for hemodynamic support. Titrate to keep MAP above 65 mmHg/SBP above 90 mmHg. Continue antibiotics. F/u cultures. Monitor renal function due to Acute kidney injury. Monitor electrolytes. Supplement as necessary. Monitor ins and outs Maintain euvolemia Cardiology recommendations appreciated. Nutritional support. Accucheks, ISS. GI/DVT prophylaxis. Condition: Critical Prognosis: Poor given multiple comorbidities. Rest of plan per hospitalist and other consultants. A total of 35 minutes of critical care time was spent reviewing the patient record, examining the patient, making a diagnostic and therapeutic plan, discussing this plan with the medical personnel, following up on diagnostic studies and following the patient for clinical stability excluding any and all procedures. At least 50% of this time was spent in direct, [id number] contact. Thank you Dr. Conn for allowing me to participate in this patient's care. Further recommendations will depend on patient's clinical course. Please do not hesitate to contact me if you have any questions or concerns. This medical document was created using an electronic medical record system with [employer] dictation system. Although this document has been carefully reviewed, there may still be some phonetic and typographical errors. These areas are purely typographical due to imperfections of the software programs, and do not reflect any compromise in the patient's medical care. Dietary Evaluation Review Comments: 1. consider Renal Specific 70g protein restriction witn 2GNa, 3K, low Phos, if no diaylsis needed. 2. consider Renal Standard 2gn, 3K, low phosphate diet if Pt is on dialysis. 3. encourage and monitor po intake to meet 75% of his needs. Expected Outcomes/Goals: avoid uremic symptoms, gradual healed wounds. Plan discussed with: Other (CALEB Partida) Critical Care Time(min): 35 BOGDAN MANN MD May 30, 2024 23:14
[2024-05-31] VITALS (100 sets, daily range): BP systolic 81–256; BP diastolic 31–96; PULSE 71–89; RESP 9–20; TEMP 98.6–99.9; O2SAT 87–100
--- NOTE | 2024-05-31 05:59 | DVH ---
CHEST RADIOGRAPH Indication: INTUBATED Technique: Single frontal view of the chest was obtained COMPARISON: XY CHEST XRAY 1 VIEW on DOS: 05/30/24, XY CHEST PORTABLE on DOS: 05/28/24, XY CHEST PORTABLE on DOS: 05/27/24, XY CHEST PORTABLE on DOS: 05/26/24, XY CHEST PORTABLE on DOS: 05/26/24, XY CHEST XRAY 1 V IEW on DOS: 05/30/24 FINDINGS: Lines and Tubes: Endotracheal tube, enteric catheter and left central venous catheter in satisfactory position. Lungs: Multifocal airspace disease. Pleura: Small right pleural effusion. No pneumothorax. Cardiomediastinal contours: Unremarkable Bones: Unremarkable IMPRESSION: Lines and tubes in satisfactory position. No significant interval change.
[2024-05-31 07:15] LABS: Basophils # (auto) 0.1 10 ^3/uL (0-0.2); Eosinophils # (auto) 0.2 10 ^3/uL (0-0.8); Lymphocytes # (auto) 0.6 10 ^3/uL (0.4-5.4); Monocytes # (auto) 0.4 10 ^3/uL (0-1.3); Red Blood Cells 4.78 10^6/uL (4.5-5.90); White Blood Cell 8.2 10^3/uL (4.4-10.8)
[2024-05-31 07:17] LABS: Basophils % (auto) 0.9 % (0.0-2.0); Eosinophils % (auto) 2.4 % (0.0-7.0); Lymphocytes % (auto) 6.7 % (10.0-50.0); Mean Corpuscular Hemoglobin 27.1 pg (28.0-32.0); Mean Corpuscular Hgb Conc. 31.6 g/dL (32.0-36.0); Mean Corpuscular Volume 85.8 fL (80.0-100.0); Monocytes % (auto) 4.7 % (0.0-12.0); Neutrophils % (auto) 85.3 % (37.0-80.0); Nucleated Red Blood Cells % 0.1 %; Platelet Count (auto) 58 10^3/uL (140-450); Red Cell Distribution Width 18.1 % (11.8-14.3)
[2024-05-31 07:27] LABS: Base Excess 13.3 mmol/L (-2.0-3.0)
[2024-05-31 07:30] LABS: Alanine Aminotransferase 26 U/L (7-40); Alkaline Phosphatase 81 U/L (46-116); BUN/Creatinine Ratio 41.1 (10.0-20.0)
[2024-05-31 07:38] LABS: Albumin 2.2 g/dL (3.2-4.8); Anion Gap 3.99999 (5-15); Aspartate Aminotransferase 66 U/L (13-40); Bilirubin, Total 2.4 mg/dL (0.2-1.0); Blood Urea Nitrogen 23 mg/dL (9-23); Calcium 8.7 mg/dL (8.7-10.4); Chloride 109 mmol/L (98-107); Glucose 138 mg/dL (74-106); Phosphorus 2.1 mg/dL (2.4-5.1); Sodium 153 mmol/L (136-145); Total Protein 4.3 g/dL (5.7-8.2)
[2024-05-31 07:39] LABS: Carbon Dioxide > 40 mmol/L (20-31)
[2024-05-31] MEDS: POTASSIUM PHOSPHATE 22 MEQ in SODIUM CHL 0.9% 100 ML IV ONE (14:17)
--- NOTE | 2024-05-31 14:54 | DVHPN2 ---
Progress Note - Dictate Date Seen: May 31, 2024 Medical Necessity Reason Pt with a Central, PICC or Fol: Yes The following are medically ne: Olsen Catheter Reason for olsen catheter: Strict I&O Subjective PT WITH SS COMPLEX INCRESEING SOB HARVEY LE EDEMA HFrEF CHRONIC AND ACUTE NOW WITH HEMOPTYSIS TACHYCARDIA CTA LUNG C/W PE ACUTE vital signs Vital Sign Date Time Temp Pulse Resp B/P (MAP) Pulse Ox O2 Delivery O2 Flow Rate FiO2 05/31/24 14:00 74 18 102/48 (66) 90 05/31/24 13:40 30 05/31/24 12:00 Mechanical Ventilator+ 05/31/24 12:00 98.8 98.8 Total Intake and Output 05/30/24 05/30/24 05/31/24 15:00 23:00 07:00 Intake Total 755.25 ml 1538.25 ml 1384.25 ml Output Total 550 ml 650 ml Balance 755.25 ml 988.25 ml 734.25 ml medications Current Medications Medications Dose Ordered Sig/Amy Route Start Time Stop Time Status Last Admin Dose Admin Digoxin 0.125 mg DAILY PO 05/19/24 10:00 05/31/24 09:25 0.125 MG Spironolactone 25 mg DAILY PO 05/21/24 10:00 05/31/24 09:25 25 MG Apixaban 5 mg BID PO 05/30/24 10:00 05/31/24 09:25 5 MG Midazolam HCl 50 ml @ 1 mls/hr Q24H IV 05/26/24 22:00 05/31/24 13:17 4 MLS/HR Fentanyl Citrate 250 ml @ 2.5 mls/hr Q24H IV 05/26/24 22:00 05/30/24 17:10 7.5 MLS/HR Norepinephrine Bitartrate 250 ml @ 3.75 mls/hr Q24H IV 05/26/24 22:00 05/30/24 17:13 11.25 MLS/HR Potassium Chloride 100 ml @ 50 mls/hr Q2H IV 05/27/24 17:15 05/28/24 01:14 UNV Amino Acids 0 ml @ 0 mls/hr PER PHARMACY IV 05/30/24 12:00 Diagnostic Test (Pha) 1 strip Q6HR 05/30/24 18:00 05/31/24 12:00 1 STRIP Insulin Human Regular FOLLOW SLIDING SCALE Q6HR SC 05/30/24 18:00 05/31/24 12:00 2 UNITS Dextrose 50 ml UD IV 05/30/24 12:15 Fat Emulsion Intravenous 50 ml/ Potassium Phosphate 44 meq/ Magnesium Sulfate 8 meq/ Multivitamins 10 ml/Amino Acids/ Dextrose 1,072 ml @ 45 mls/hr [id number] IV 05/30/24 22:00 05/31/24 21:59 05/30/24 22:00 45 MLS/HR Dextrose/Sodium Chloride 1,000 ml @ 130 mls/hr Q7H42M IV 05/30/24 22:00 05/31/24 13:12 130 MLS/HR Fat Emulsion Intravenous 100 ml/Potassium Phosphate 22 meq/ Magnesium Sulfate 10 meq/ Multivitamins 10 ml/Amino Acids/ Dextrose 1,267.5 ml @ 52 mls/hr [id number] IV 05/31/24 22:00 06/01/24 21:59 objective PUL DIFF RHONCHI JVD ANGLE OF THE JAW CV RR PMI DIFFUSE EXT 3+ EDEMA laboratory and microbiology Laboratory Tests 05/31/24 05:24 Test 05/31/24 05:24 Range/Units Serum Glucose 138 H 74-106 mg/dL Problem List SS COMPLEX INCRESEING SOB HARVEY LE EDEMA HFrEF CHRONIC AND ACUTE EF < 20% NOW WITH HEMOPTYSIS TACHYCARDIA CTA LUNG C/W PE 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 Large filling defect right pulmonary artery consistent with pulmonary embolus. No film findings of pulmonary artery hypertension. No pulmonary emboli noted on the left. 2. Findings are also suggestive of right heart strain. 3. Large right pleural effusion. HEPARIN DRIP\ LASIX DRIP WILL START ORAL ANTICOAGULATION IN 48 HOURS ABX LE ARTERIAL DOPPLER NO SIGNIFICANT DISEASE FOR LIMB RISK DC HEPARIN START ELIQUIS S/P CT HEAD CURRENTLY ON BiPAP IMPROVING RESP STATUS 7.32/59/69 TITRATE BIPAP THORACENTESIS ULTRASOUND GUIDED MRI OF ABD S/P THORACENTESIS 2200 CC DRAINED CXR BILATERAL INFILTRATE PROMINENT MEDIASTINUM CARDIOMEGALY HYPOKALEMIA BEING CORRECTED A FLUTTER S/P CARDIOVERSION SINUS RHYTHM TITRATE OFF LEVOPHED USE ALBUMIN FOR PRESSURE SUPORT DC LASIX DRIP START D5 1/4 NS AT 125 CC/HR BMP/ BNP DAILY cont volume replacement contraction alkalosis leukocytosis improved monitor h/h HYPERNATREMAI IMPROVING DIAMOX X 1 DOSE Dietary Evaluation Review Comments: 1. consider Renal Specific 70g protein restriction witn 2GNa, 3K, low Phos, if no diaylsis needed. 2. consider Renal Standard 2gn, 3K, low phosphate diet if Pt is on dialysis. 3. encourage and monitor po intake to meet 75% of his needs. Expected Outcomes/Goals: avoid uremic symptoms, gradual healed wounds. Plan discussed with: Other Critical Care Time(min): 35 ISSAC SHAH MD May 31, 2024 14:54
[2024-05-31] MEDS: acetaZOLAMIDE SODIUM 500 MG VL IV ONE (16:05)
[2024-05-31] MEDS: TPN PER PHARMACY IV NR (22:00)
--- NOTE | 2024-05-31 23:32 | DVHPN2 ---
Progress Note - Dictate Date Seen: May 31, 2024 Medical Necessity Reason Pt with a Central, PICC or Fol: Yes The following are medically ne: Olsen Catheter Reason for olsen catheter: Strict I&O Subjective Patient seen and examined at bedside. Sedated, intubated on mechanical ventilator. Overnight events reviewed. vital signs Vital Sign Date Time Temp Pulse Resp B/P (MAP) Pulse Ox O2 Delivery O2 Flow Rate FiO2 05/31/24 20:00 84 19 140/52 (81) 97 30 05/31/24 18:00 Mechanical Ventilator+ 05/31/24 17:15 99.7 99.7 Total Intake and Output 05/30/24 05/30/24 05/31/24 15:00 23:00 07:00 Intake Total 755.25 ml 1538.25 ml 1582.00 ml Output Total 550 ml 650 ml Balance 755.25 ml 988.25 ml 932.00 ml medications Current Medications Medications Dose Ordered Sig/Amy Route Start Time Stop Time Status Last Admin Dose Admin Digoxin 0.125 mg DAILY PO 05/19/24 10:00 05/31/24 09:25 0.125 MG Spironolactone 25 mg DAILY PO 05/21/24 10:00 05/31/24 09:25 25 MG Apixaban 5 mg BID PO 05/30/24 10:00 05/31/24 22:50 5 MG Midazolam HCl 50 ml @ 1 mls/hr Q24H IV 05/26/24 22:00 05/31/24 13:17 4 MLS/HR Fentanyl Citrate 250 ml @ 2.5 mls/hr Q24H IV 05/26/24 22:00 05/31/24 17:13 7.5 MLS/HR Norepinephrine Bitartrate 250 ml @ 3.75 mls/hr Q24H IV 05/26/24 22:00 05/31/24 17:01 11.25 MLS/HR Potassium Chloride 100 ml @ 50 mls/hr Q2H IV 05/27/24 17:15 05/28/24 01:14 UNV Amino Acids 0 ml @ 0 mls/hr PER PHARMACY IV 05/30/24 12:00 Diagnostic Test (Pha) 1 strip Q6HR 05/30/24 18:00 05/31/24 17:51 1 STRIP Insulin Human Regular FOLLOW SLIDING SCALE Q6HR SC 05/30/24 18:00 05/31/24 12:00 2 UNITS Dextrose 50 ml UD IV 05/30/24 12:15 Dextrose/Sodium Chloride 1,000 ml @ 130 mls/hr Q7H42M IV 05/30/24 22:00 05/31/24 13:12 130 MLS/HR Fat Emulsion Intravenous 100 ml/Potassium Phosphate 22 meq/ Magnesium Sulfate 10 meq/ Multivitamins 10 ml/Amino Acids/ Dextrose 1,267.5 ml @ 52 mls/hr [id number] IV 05/31/24 22:00 06/01/24 21:59 05/31/24 22:00 52 MLS/HR Acetaminophen 650 mg Q6HP PRN PO 05/31/24 19:30 objective Gen.: Patient lying in bed in medical ICU. Sedated, intubated on mechanical ventilator. Head: Normocephalic, atraumatic. Eyes: PERRLA. Ears: Normal external anatomy. Throat: Endotracheal tube and orogastric tube in place. Neck: Supple, trachea midline. Chest: Transmitted breath sounds bilaterally. Decreased air entry bilaterally. No wheezing. Bibasilar crackles. Cardio vascular: Positive S1, positive S2. Regular rate and rhythm. Abdomen: Positive bowel sounds in all 4 quadrants. Soft, nontender, nondistended. : Olsen in place. Normal external genitalia. Rectal: Deferred Skin: Warm, dry. Intact. Extremities: 2+ radial pulses bilaterally. No lower extremity edema. Neuro: Sedated. laboratory and microbiology Laboratory Tests 05/31/24 05:24 Test 05/31/24 05:24 Range/Units Serum Glucose 138 H 74-106 mg/dL Assessment/Plan Impression: Acute hypoxic respiratory failure Mechanical ventilator Pleural effusion, right Atelectasis CHF exacerbation Pulmonary embolism Obesity with a BMI of 30.1 Events: Remains on vent support On assist control with respiratory rate of 18, tidal volume 400, PEEP of 8, FiO2 at 30%. Sedated on Versed, Fentanyl TPN for nutritional support ET tube w/ bloody secretions Plan for bronchoscopy to clear secretions. ABG reviewed, compensated. CXR demonstrates Multifocal airspace opacities. Small right pleural effusion. Devices in place. On pressors for hemodynamic support. Levophed 6 mcg/min Titrate to keep MAP above 65 mmHg/SBP above 90 mmHg. Improving pressor requirements Diamox On Eliquis for PE Monitor renal function Monitor electrolytes. Supplement as necessary. Monitor ins and outs. K phos, mag supplementation IV fluids at 175 ml/hr S/p bronchoscopy w/ RML BAL on 05/28/24 - Cleared bloody secretions from L1-L10 and R1-R10 See separate procedure note for details. S/p cardioversion on 05/27/24 Labs and imaging reviewed. Rest of plan as noted below. Plan: s/p intubation on mechanical ventilator Status post right thoracentesis with removal of 2200 mL ABG reviewed. Alkalemia due to contraction alkalosis. Hypoxemia with a PO2 of 42 mmHg. Patient was emergently intubated and placed on mechanical ventilation. Currently on assist control with respiratory rate of 18, tidal volume 400, PEEP of 8, FiO2 at 30%. Titrate FIO2 to keep O2 saturation above 92%. VAP bundle Daily ABG and CXR while intubated. Sedate for ventilatory synchrony On pressors for hemodynamic support. Titrate to keep MAP above 65 mmHg/SBP above 90 mmHg. Continue antibiotics. F/u cultures. Monitor renal function due to Acute kidney injury. Monitor electrolytes. Supplement as necessary. Monitor ins and outs Maintain euvolemia Cardiology recommendations appreciated. Nutritional support. Accucheks, ISS. GI/DVT prophylaxis. Condition: Critical Prognosis: Poor given multiple comorbidities. Rest of plan per hospitalist and other consultants. A total of 35 minutes of critical care time was spent reviewing the patient record, examining the patient, making a diagnostic and therapeutic plan, discussing this plan with the medical personnel, following up on diagnostic studies and following the patient for clinical stability excluding any and all procedures. At least 50% of this time was spent in direct, [id number] contact. Thank you Dr. Conn for allowing me to participate in this patient's care. Further recommendations will depend on patient's clinical course. Please do not hesitate to contact me if you have any questions or concerns. This medical document was created using an electronic medical record system with [employer] system. Although this document has been carefully reviewed, there may still be some phonetic and typographical errors. These areas are purely typographical due to imperfections of the software programs, and do not reflect any compromise in the patient's medical care. Dietary Evaluation Review Comments: 1. consider Renal Specific 70g protein restriction witn 2GNa, 3K, low Phos, if no diaylsis needed. 2. consider Renal Standard 2gn, 3K, low phosphate diet if Pt is on dialysis. 3. encourage and monitor po intake to meet 75% of his needs. Expected Outcomes/Goals: avoid uremic symptoms, gradual healed wounds. Plan discussed with: Spouse, Son, Other (CALEB Hernandez) Critical Care Time(min): 35 BOGDAN MANN MD May 31, 2024 23:32
[2024-06-01] VITALS (104 sets, daily range): BP systolic 84–189; BP diastolic 39–69; PULSE 50–90; RESP 9–24; TEMP 98.8–99.9; O2SAT 89–100
[2024-06-01 05:18] LABS: Anion Gap 0 (5-15)
[2024-06-01 05:24] LABS: Blood Urea Nitrogen 23 mg/dL (9-23)
[2024-06-01 05:25] LABS: Magnesium 1.9 mg/dL (1.6-2.6)
[2024-06-01 05:33] LABS: Calcium 8.6 mg/dL (8.7-10.4); Carbon Dioxide 37 mmol/L (20-31); Chloride 110 mmol/L (98-107); Glucose 124 mg/dL (74-106); Phosphorus 2.4 mg/dL (2.4-5.1); Sodium 147 mmol/L (136-145)
[2024-06-01 05:40] LABS: Eosinophils # (auto) 0.2 10 ^3/uL (0-0.8); Eosinophils % (auto) 2.2 % (0.0-7.0); Neutrophils # (auto) 7.2 10 ^3/uL (1.6-8.6); Neutrophils % (auto) 88.7 % (37.0-80.0); Platelet Count (auto) 61 10^3/uL (140-450); White Blood Cell 8.1 10^3/uL (4.4-10.8)
[2024-06-01 05:42] LABS: Basophils # (auto) 0.1 10 ^3/uL (0-0.2); Basophils % (auto) 0.9 % (0.0-2.0); Hematocrit 42.4 % (41.0-53.0); Hemoglobin 13.5 g/dL (13.5-17.5); Lymphocytes # (auto) 0.4 10 ^3/uL (0.4-5.4); Lymphocytes % (auto) 4.9 % (10.0-50.0); Mean Corpuscular Hemoglobin 27.1 pg (28.0-32.0); Mean Corpuscular Hgb Conc. 31.9 g/dL (32.0-36.0); Mean Corpuscular Volume 85.1 fL (80.0-100.0); Monocytes # (auto) 0.3 10 ^3/uL (0-1.3); Monocytes % (auto) 3.3 % (0.0-12.0); Nucleated Red Blood Cells % 0.1 %; Red Blood Cells 4.98 10^6/uL (4.5-5.90)
[2024-06-01 07:12] LABS: Base Excess 4.7 mmol/L (-2.0-3.0)
--- NOTE | 2024-06-01 10:10 | DVH ---
EXAM: XR Chest, 1 View CLINICAL INDICATION: intubated TECHNIQUE: Frontal view of the chest. COMPARISON: XY CHEST PORTABLE on DOS: 05/31/24, XY CHEST XRAY 1 VIEW on DOS: 05/30/24, XY CHEST PORTAB LE on DOS: 05/28/24, XY CHEST PORTABLE on DOS: 05/27/24, XY CHEST PORTABLE on DOS: 05/26/24 FINDINGS: LUNGS AND PLEURAL SPACES: See below. HEART: Cardiomegaly with pulmonary congestion and edema. Superimposed pneumonia cannot be excluded. MEDIASTINUM: Unremarkable. Normal mediastinal contour. BONES/JOINTS: Plural effusions. No acute fracture. TUBES, LINES AND DEVICES: ET. Enteric tube tip in the stomach. OTHER FINDINGS: . . IMPRESSION: Cardiomegaly with pulmonary congestion and edema. Superimposed pneumonia cannot be excluded.
[2024-06-01] MEDS: MAGNESIUM SULFATE 1GM/100ML 100 ML IV SCH (11:49)
--- NOTE | 2024-06-01 18:40 | DVHPN2 ---
Progress Note - Dictate Date Seen: Jun 01, 2024 Medical Necessity Reason Pt with a Central, PICC or Fol: Yes The following are medically ne: Olsen Catheter Reason for olsen catheter: Strict I&O Subjective Patient seen and examined at bedside. Sedated, intubated on mechanical ventilator. Overnight events reviewed. vital signs Vital Sign Date Time Temp Pulse Resp B/P (MAP) Pulse Ox O2 Delivery O2 Flow Rate FiO2 06/01/24 18:00 30 06/01/24 18:00 18 99 Mechanical Ventilator+ 06/01/24 18:00 87 06/01/24 17:43 100/44 (62) 06/01/24 12:00 98.8 98.8 Total Intake and Output 05/31/24 05/31/24 06/01/24 15:00 23:00 07:00 Intake Total 1608.25 ml 1665.75 ml 1589.00 ml Output Total 950 ml 2000 ml Balance 1608.25 ml 715.75 ml -411.00 ml medications Current Medications Medications Dose Ordered Sig/Amy Route Start Time Stop Time Status Last Admin Dose Admin Digoxin 0.125 mg DAILY PO 05/19/24 10:00 06/01/24 10:39 0.125 MG Spironolactone 25 mg DAILY PO 05/21/24 10:00 06/01/24 10:39 25 MG Apixaban 5 mg BID PO 05/30/24 10:00 06/01/24 10:39 5 MG Midazolam HCl 50 ml @ 1 mls/hr Q24H IV 05/26/24 22:00 06/01/24 15:01 4 MLS/HR Fentanyl Citrate 250 ml @ 2.5 mls/hr Q24H IV 05/26/24 22:00 05/31/24 17:13 7.5 MLS/HR Norepinephrine Bitartrate 250 ml @ 3.75 mls/hr Q24H IV 05/26/24 22:00 06/01/24 10:51 11.25 MLS/HR Potassium Chloride 100 ml @ 50 mls/hr Q2H IV 05/27/24 17:15 05/28/24 01:14 UNV Amino Acids 0 ml @ 0 mls/hr PER PHARMACY IV 05/30/24 12:00 Diagnostic Test (Pha) 1 strip Q6HR 05/30/24 18:00 06/01/24 17:39 1 STRIP Insulin Human Regular FOLLOW SLIDING SCALE Q6HR SC 05/30/24 18:00 05/31/24 12:00 2 UNITS Dextrose 50 ml UD IV 05/30/24 12:15 Dextrose/Sodium Chloride 1,000 ml @ 130 mls/hr Q7H42M IV 05/30/24 22:00 06/01/24 13:12 130 MLS/HR Fat Emulsion Intravenous 100 ml/Potassium Phosphate 22 meq/ Magnesium Sulfate 10 meq/ Multivitamins 10 ml/Amino Acids/ Dextrose 1,267.5 ml @ 52 mls/hr [id number] IV 05/31/24 22:00 06/01/24 21:59 05/31/24 22:00 52 MLS/HR Acetaminophen 650 mg Q6HP PRN PO 05/31/24 19:30 Fat Emulsion Intravenous 100 ml/Potassium Phosphate 31 meq/ Multivitamins 10 ml/Amino Acids/ Dextrose 1,267.0455 ml @ 52 mls/hr [id number] IV 06/01/24 22:00 06/02/24 21:59 objective Gen.: Patient lying in bed in medical ICU. Sedated, intubated on mechanical ventilator. Head: Normocephalic, atraumatic. Eyes: PERRLA. Ears: Normal external anatomy. Throat: Endotracheal tube and orogastric tube in place. Neck: Supple, trachea midline. Chest: Transmitted breath sounds bilaterally. Decreased air entry bilaterally. No wheezing. Bibasilar crackles. Cardio vascular: Positive S1, positive S2. Regular rate and rhythm. Abdomen: Positive bowel sounds in all 4 quadrants. Soft, nontender, nondistended. : Olsen in place. Normal external genitalia. Rectal: Deferred Skin: Warm, dry. Intact. Extremities: 2+ radial pulses bilaterally. No lower extremity edema. Neuro: Sedated. laboratory and microbiology Laboratory Tests 06/01/24 04:47 Test 06/01/24 04:47 Range/Units Serum Glucose 124 H 74-106 mg/dL Assessment/Plan Impression: Acute hypoxic respiratory failure Mechanical ventilator Pleural effusion, right Atelectasis CHF exacerbation Pulmonary embolism Obesity with a BMI of 30.1 Events: Remains on vent support On assist control with respiratory rate of 18, tidal volume 400, PEEP of 8, FiO2 at 30%. Sedated on Versed, Fentanyl TPN for nutritional support ET tube w/ bloody secretions Obtain consent for bronchoscopy with BAL to clear secretions. Plan for placement of arterial line. ABG reviewed, notable for acidemia CXR demonstrates Cardiomegaly with pulmonary congestion and edema. Superimposed pneumonia cannot be excluded. Devices in place. On pressors for hemodynamic support. Levophed 6 mcg/min Titrate to keep MAP above 65 mmHg/SBP above 90 mmHg. On Eliquis for PE Monitor renal function Monitor electrolytes. Supplement as necessary. Monitor ins and outs. IV fluids S/p bronchoscopy w/ RML BAL on 05/28/24 - Cleared bloody secretions from L1-L10 and R1-R10 See separate procedure note for details. S/p cardioversion on 05/27/24 Labs and imaging reviewed. Rest of plan as noted below. Plan: s/p intubation on mechanical ventilator Status post right thoracentesis with removal of 2200 mL ABG reviewed. Alkalemia due to contraction alkalosis. Hypoxemia with a PO2 of 42 mmHg. Patient was emergently intubated and placed on mechanical ventilation. Currently on assist control with respiratory rate of 18, tidal volume 400, PEEP of 8, FiO2 at 30%. Titrate FIO2 to keep O2 saturation above 92%. VAP bundle Daily ABG and CXR while intubated. Sedate for ventilatory synchrony On pressors for hemodynamic support. Titrate to keep MAP above 65 mmHg/SBP above 90 mmHg. Continue antibiotics. F/u cultures. Monitor renal function due to Acute kidney injury. Monitor electrolytes. Supplement as necessary. Monitor ins and outs Maintain euvolemia Cardiology recommendations appreciated. Nutritional support. Accucheks, ISS. GI/DVT prophylaxis. Condition: Critical Prognosis: Poor given multiple comorbidities. Rest of plan per hospitalist and other consultants. A total of 35 minutes of critical care time was spent reviewing the patient record, examining the patient, making a diagnostic and therapeutic plan, discussing this plan with the medical personnel, following up on diagnostic studies and following the patient for clinical stability excluding any and all procedures. At least 50% of this time was spent in direct, [id number] contact. Thank you Dr. Conn for allowing me to participate in this patient's care. Further recommendations will depend on patient's clinical course. Please do not hesitate to contact me if you have any questions or concerns. This medical document was created using an electronic medical record system with Dragon computerized dictation system. Although this document has been carefully reviewed, there may still be some phonetic and typographical errors. These areas are purely typographical due to imperfections of the software programs, and do not reflect any compromise in the patient's medical care. Dietary Evaluation Review Comments: 1. consider Renal Specific 70g protein restriction witn 2GNa, 3K, low Phos, if no diaylsis needed. 2. consider Renal Standard 2gn, 3K, low phosphate diet if Pt is on dialysis. 3. encourage and monitor po intake to meet 75% of his needs. Expected Outcomes/Goals: avoid uremic symptoms, gradual healed wounds. Plan discussed with: Other (CALEB Pride) Critical Care Time(min): 35 BOGDAN MANN MD Jun 01, 2024 18:40
[2024-06-01] MEDS: TPN PER PHARMACY IV NR (23:17)
[2024-06-02] VITALS (110 sets, daily range): BP systolic 87–123; BP diastolic 39–57; PULSE 75–90; RESP 11–22; TEMP 98.1–100.2; O2SAT 87–100
[2024-06-02 05:22] LABS: Basophils # (auto) 0 10 ^3/uL (0-0.2); Hemoglobin 12.4 g/dL (13.5-17.5); Lymphocytes # (auto) 0.3 10 ^3/uL (0.4-5.4); Monocytes # (auto) 0.2 10 ^3/uL (0-1.3); Neutrophils # (auto) 6.1 10 ^3/uL (1.6-8.6); Nucleated Red Blood Cells % 0.1 %; Red Cell Distribution Width 17.6 % (11.8-14.3); White Blood Cell 6.7 10^3/uL (4.4-10.8)
[2024-06-02 05:25] LABS: Basophils % (auto) 0.7 % (0.0-2.0); Eosinophils # (auto) 0.2 10 ^3/uL (0-0.8); Eosinophils % (auto) 2.3 % (0.0-7.0); Hematocrit 39.3 % (41.0-53.0); Lymphocytes % (auto) 3.9 % (10.0-50.0); Mean Corpuscular Hemoglobin 26.9 pg (28.0-32.0); Mean Corpuscular Hgb Conc. 31.7 g/dL (32.0-36.0); Mean Corpuscular Volume 84.8 fL (80.0-100.0); Monocytes % (auto) 2.5 % (0.0-12.0); Neutrophils % (auto) 90.6 % (37.0-80.0); Platelet Count (auto) 66 10^3/uL (140-450); Red Blood Cells 4.63 10^6/uL (4.5-5.90)
[2024-06-02 05:40] LABS: Anion Gap 1 (5-15); Chloride 107 mmol/L (98-107); Potassium 4.4 mmol/L (3.5-5.1); Sodium 142 mmol/L (136-145)
[2024-06-02 05:46] LABS: Blood Urea Nitrogen 24 mg/dL (9-23); Carbon Dioxide 34 mmol/L (20-31); Glucose 117 mg/dL (74-106)
[2024-06-02 05:47] LABS: Calcium 8.5 mg/dL (8.7-10.4)
--- NOTE | 2024-06-02 05:48 | DVH ---
CHEST RADIOGRAPH Indication: INTUBATED Technique: Frontal view of the chest. Comparison: XY CHEST XRAY 1 VIEW on DOS: 06/01/24, XY CHEST PORTABLE on DOS: 05/31/24, XY CHEST XRAY 1 VIEW on DOS: 05/30/24, XY CHEST PORTABLE on DOS: 05/28/24, XY CHEST PORTABLE on DOS: 05/27/24, XY CHEST XRA Y 1 VIEW on DOS: 06/01/24 FINDINGS: LUNGS AND PLEURAL SPACES: See below. HEART: Cardiomegaly with pulmonary congestion and edema. Superimposed pneumonia cannot be excluded. MEDIASTINUM: Unremarkable. Normal mediastinal contour. BONES/JOINTS: Plural effusions. No acute fracture. TUBES, LINES AND DEVICES: ET tube unchanged. Enteric tube tip in the stomach. IMPRESSION: No interval change
[2024-06-02 06:02] LABS: Phosphorus 1.9 mg/dL (2.4-5.1)
[2024-06-02 08:18] LABS: Base Excess 1.8 mmol/L (-2.0-3.0)
[2024-06-02] MEDS ORDERED: SODIUM PHOSPHATES 20 MEQ in SODIUM CHL 0.9% 100 ML IV ONE (11:45)
[2024-06-02] MEDS: SODIUM PHOSPHATES 20 MEQ in SODIUM CHL 0.9% 100 ML IV ONE (15:43)
[2024-06-02] MEDS: TPN PER PHARMACY IV NR (21:48)
--- NOTE | 2024-06-02 23:22 | DVHPN2 ---
Progress Note - Dictate Date Seen: Jun 02, 2024 Medical Necessity Reason Pt with a Central, PICC or Fol: Yes The following are medically ne: Olsen Catheter Reason for olsen catheter: Strict I&O Subjective Patient seen and examined at bedside. Sedated, intubated on mechanical ventilator. Overnight events reviewed. vital signs Vital Sign Date Time Temp Pulse Resp B/P (MAP) Pulse Ox O2 Delivery O2 Flow Rate FiO2 06/02/24 22:10 82 18 97/43 (61) 100 30 06/02/24 20:00 99.1 99.1 06/02/24 20:00 Mechanical Ventilator+ Total Intake and Output 06/01/24 06/01/24 06/02/24 15:00 23:00 07:00 Intake Total 1188.00 ml 1428.00 ml 1688.00 ml Output Total 900 ml 1300 ml Balance 1188.00 ml 528.00 ml 388.00 ml medications Current Medications Medications Dose Ordered Sig/Amy Route Start Time Stop Time Status Last Admin Dose Admin Digoxin 0.125 mg DAILY PO 05/19/24 10:00 06/02/24 10:00 0.125 MG Spironolactone 25 mg DAILY PO 05/21/24 10:00 06/02/24 10:00 25 MG Apixaban 5 mg BID PO 05/30/24 10:00 06/02/24 21:43 5 MG Midazolam HCl 50 ml @ 1 mls/hr Q24H IV 05/26/24 22:00 06/02/24 04:00 4 MLS/HR Fentanyl Citrate 250 ml @ 2.5 mls/hr Q24H IV 05/26/24 22:00 06/01/24 20:02 7.5 MLS/HR Norepinephrine Bitartrate 250 ml @ 3.75 mls/hr Q24H IV 05/26/24 22:00 06/02/24 17:34 22.5 MLS/HR Potassium Chloride 100 ml @ 50 mls/hr Q2H IV 05/27/24 17:15 05/28/24 01:14 UNV Amino Acids 0 ml @ 0 mls/hr PER PHARMACY IV 05/30/24 12:00 Diagnostic Test (Pha) 1 strip Q6HR 05/30/24 18:00 06/02/24 17:33 1 STRIP Insulin Human Regular FOLLOW SLIDING SCALE Q6HR SC 05/30/24 18:00 05/31/24 12:00 2 UNITS Dextrose 50 ml UD IV 05/30/24 12:15 Dextrose/Sodium Chloride 1,000 ml @ 130 mls/hr Q7H42M IV 05/30/24 22:00 06/02/24 21:46 130 MLS/HR Acetaminophen 650 mg Q6HP PRN PO 05/31/24 19:30 Fat Emulsion Intravenous 100 ml/Sodium Phosphate 20 meq/ Potassium Phosphate 22 meq/ Magnesium Sulfate 14 meq/ Multivitamins 10 ml/Amino Acids/ Dextrose 1,323.5 ml @ 55 mls/hr Q24H4M IV 06/02/24 22:00 06/03/24 21:59 06/02/24 21:48 55 MLS/HR objective Gen.: Patient lying in bed in medical ICU. Sedated, intubated on mechanical ventilator. Head: Normocephalic, atraumatic. Eyes: PERRLA. Ears: Normal external anatomy. Throat: Endotracheal tube and orogastric tube in place. Neck: Supple, trachea midline. Chest: Transmitted breath sounds bilaterally. Decreased air entry bilaterally. No wheezing. Bibasilar crackles. Cardio vascular: Positive S1, positive S2. Regular rate and rhythm. Abdomen: Positive bowel sounds in all 4 quadrants. Soft, nontender, nondistended. : Olsen in place. Normal external genitalia. Rectal: Deferred Skin: Warm, dry. Intact. Extremities: 2+ radial pulses bilaterally. No lower extremity edema. Neuro: Sedated. laboratory and microbiology Laboratory Tests 06/02/24 04:49 Test 06/02/24 04:49 Range/Units Serum Glucose 117 H 74-106 mg/dL Assessment/Plan Impression: Acute hypoxic respiratory failure Mechanical ventilator Pleural effusion, right Atelectasis CHF exacerbation Pulmonary embolism Obesity with a BMI of 30.1 Events: Remains on vent support On assist control with respiratory rate of 18, tidal volume 400, PEEP of 8, FiO2 at 30%. Sedated on Versed, Fentanyl TPN for nutritional support IV flujds - D5 + 0.2% normal saline. ABG reviewed, compensated. CXR demonstrates Cardiomegaly with pulmonary congestion and edema. Superimposed pneumonia cannot be excluded. Devices in place. On pressors for hemodynamic support. Levophed 12 mcg/min Titrate to keep MAP above 65 mmHg/SBP above 90 mmHg. Increased pressor requirements On Eliquis for PE Monitor renal function Monitor electrolytes. Supplement as necessary. Monitor ins and outs. S/p bronchoscopy w/ RML BAL on 05/28/24 - Cleared bloody secretions from L1-L10 and R1-R10 See separate procedure note for details. S/p cardioversion on 05/27/24 Labs and imaging reviewed. Rest of plan as noted below. Plan: s/p intubation on mechanical ventilator Status post right thoracentesis with removal of 2200 mL ABG reviewed. Alkalemia due to contraction alkalosis. Hypoxemia with a PO2 of 42 mmHg. Patient was emergently intubated and placed on mechanical ventilation. Currently on assist control with respiratory rate of 18, tidal volume 400, PEEP of 8, FiO2 at 30%. Titrate FIO2 to keep O2 saturation above 92%. VAP bundle Daily ABG and CXR while intubated. Sedate for ventilatory synchrony On pressors for hemodynamic support. Titrate to keep MAP above 65 mmHg/SBP above 90 mmHg. Continue antibiotics. F/u cultures. Monitor renal function due to Acute kidney injury. Monitor electrolytes. Supplement as necessary. Monitor ins and outs Maintain euvolemia Cardiology recommendations appreciated. Nutritional support. Accucheks, ISS. GI/DVT prophylaxis. Condition: Critical Prognosis: Poor given multiple comorbidities. Rest of plan per hospitalist and other consultants. A total of 35 minutes of critical care time was spent reviewing the patient record, examining the patient, making a diagnostic and therapeutic plan, discussing this plan with the medical personnel, following up on diagnostic studies and following the patient for clinical stability excluding any and all procedures. At least 50% of this time was spent in direct, [id number] contact. Thank you Dr. Conn for allowing me to participate in this patient's care. Further recommendations will depend on patient's clinical course. Please do not hesitate to contact me if you have any questions or concerns. This medical document was created using an electronic medical record system with [employer] system. Although this document has been carefully reviewed, there may still be some phonetic and typographical errors. These areas are purely typographical due to imperfections of the software programs, and do not reflect any compromise in the patient's medical care. Dietary Evaluation Review Comments: 1. consider Renal Specific 70g protein restriction witn 2GNa, 3K, low Phos, if no diaylsis needed. 2. consider Renal Standard 2gn, 3K, low phosphate diet if Pt is on dialysis. 3. encourage and monitor po intake to meet 75% of his needs. Expected Outcomes/Goals: avoid uremic symptoms, gradual healed wounds. Plan discussed with: Other (RN Ty) Critical Care Time(min): 35 BOGDAN MANN MD Jun 02, 2024 23:21
[2024-06-03] VITALS (109 sets, daily range): BP systolic 74–125; BP diastolic 31–56; PULSE 76–95; RESP 8–29; TEMP 98.1–98.8; O2SAT 97–100
--- NOTE | 2024-06-03 05:43 | DVH ---
CHEST RADIOGRAPH Indication: INTUBATED Technique: Single frontal view of the chest was obtained COMPARISON: XY CHEST PORTABLE on DOS: 06/02/24, XY CHEST XRAY 1 VIEW on DOS: 06/01/24, XY CHEST PORTABL E on DOS: 05/31/24, XY CHEST XRAY 1 VIEW on DOS: 05/30/24, XY CHEST PORTABLE on DOS: 05/28/24, XY CHEST PO RTABLE on DOS: 05/31/24 FINDINGS: Lines and Tubes: Endotracheal tube, enteric catheter and left central venous catheter in satisfactory position. Lungs: Multifocal airspace disease. Pleura: Small right pleural effusion. No pneumothorax. Cardiomediastinal contours: Unremarkable Bones: Unremarkable IMPRESSION: Lines and tubes in satisfactory position. No significant interval change.
[2024-06-03 07:11] LABS: Basophils # (auto) 0.1 10 ^3/uL (0-0.2); Basophils % (auto) 0.9 % (0.0-2.0); Eosinophils # (auto) 0.2 10 ^3/uL (0-0.8); Eosinophils % (auto) 3.1 % (0.0-7.0); Hematocrit 38.7 % (41.0-53.0); Hemoglobin 12.5 g/dL (13.5-17.5); Lymphocytes # (auto) 0.3 10 ^3/uL (0.4-5.4); Lymphocytes % (auto) 4.1 % (10.0-50.0); Mean Corpuscular Hemoglobin 27.3 pg (28.0-32.0); Mean Corpuscular Hgb Conc. 32.4 g/dL (32.0-36.0); Mean Corpuscular Volume 84.3 fL (80.0-100.0); Monocytes # (auto) 0.2 10 ^3/uL (0-1.3); Monocytes % (auto) 3.1 % (0.0-12.0); Neutrophils # (auto) 5.6 10 ^3/uL (1.6-8.6); Neutrophils % (auto) 88.8 % (37.0-80.0); Nucleated Red Blood Cells % 0.2 %; Platelet Count (auto) 72 10^3/uL (140-450); Red Blood Cells 4.59 10^6/uL (4.5-5.90); Red Cell Distribution Width 17.5 % (11.8-14.3); White Blood Cell 6.3 10^3/uL (4.4-10.8)
[2024-06-03 07:20] LABS: Alanine Aminotransferase 89 U/L (7-40); Alkaline Phosphatase 104 U/L (46-116); Anion Gap 4 (5-15); BUN/Creatinine Ratio 44.7 (10.0-20.0); Blood Urea Nitrogen 17 mg/dL (9-23); Calcium 8.3 mg/dL (8.7-10.4); Carbon Dioxide 28 mmol/L (20-31); Chloride 104 mmol/L (98-107); Glucose 104 mg/dL (74-106); Magnesium 1.9 mg/dL (1.6-2.6); Potassium 4.7 mmol/L (3.5-5.1); Sodium 136 mmol/L (136-145); Triglycerides 60 mg/dL (< 150)
[2024-06-03 07:21] LABS: Albumin 2.2 g/dL (3.2-4.8); Aspartate Aminotransferase 196 U/L (13-40)
[2024-06-03 07:27] LABS: Bilirubin, Total 2.7 mg/dL (0.2-1.0); Phosphorus 2.3 mg/dL (2.4-5.1); Total Protein 4.7 g/dL (5.7-8.2)
[2024-06-03 09:01] LABS: Base Excess 3.7 mmol/L (-2.0-3.0)
--- NOTE | 2024-06-03 13:14 | DVHPN2 ---
Progress Note - Dictate Date Seen: Jun 03, 2024 Medical Necessity Reason Pt with a Central, PICC or Fol: Yes The following are medically ne: Olsen Catheter Reason for olsen catheter: Strict I&O Subjective PT WITH SS COMPLEX INCRESEING SOB HARVEY LE EDEMA HFrEF CHRONIC AND ACUTE NOW WITH HEMOPTYSIS TACHYCARDIA CTA LUNG C/W PE ACUTE vital signs Vital Sign Date Time Temp Pulse Resp B/P (MAP) Pulse Ox O2 Delivery O2 Flow Rate FiO2 06/03/24 12:00 98.2 81 15 106/48 (67) 100 98.2 06/03/24 12:00 30 06/03/24 12:00 Mechanical Ventilator+ Total Intake and Output 06/02/24 06/02/24 06/03/24 15:00 23:00 07:00 Intake Total 1705.50 ml 1973.5 ml 1754.5 ml Output Total 1475 ml 1825 ml Balance 1705.50 ml 498.5 ml -70.5 ml medications Current Medications Medications Dose Ordered Sig/Amy Route Start Time Stop Time Status Last Admin Dose Admin Digoxin 0.125 mg DAILY PO 05/19/24 10:00 06/03/24 09:42 0.125 MG Spironolactone 25 mg DAILY PO 05/21/24 10:00 06/03/24 09:42 25 MG Apixaban 5 mg BID PO 05/30/24 10:00 06/03/24 09:42 5 MG Midazolam HCl 50 ml @ 1 mls/hr Q24H IV 05/26/24 22:00 06/03/24 01:49 4 MLS/HR Fentanyl Citrate 250 ml @ 2.5 mls/hr Q24H IV 05/26/24 22:00 06/03/24 02:47 7.5 MLS/HR Norepinephrine Bitartrate 250 ml @ 3.75 mls/hr Q24H IV 05/26/24 22:00 06/03/24 02:44 22.5 MLS/HR Potassium Chloride 100 ml @ 50 mls/hr Q2H IV 05/27/24 17:15 05/28/24 01:14 UNV Amino Acids 0 ml @ 0 mls/hr PER PHARMACY IV 05/30/24 12:00 Diagnostic Test (Pha) 1 strip Q6HR 05/30/24 18:00 06/03/24 11:33 1 STRIP Insulin Human Regular FOLLOW SLIDING SCALE Q6HR SC 05/30/24 18:00 06/03/24 11:36 2 UNITS Dextrose 50 ml UD IV 05/30/24 12:15 Dextrose/Sodium Chloride 1,000 ml @ 130 mls/hr Q7H42M IV 05/30/24 22:00 06/03/24 07:57 130 MLS/HR Acetaminophen 650 mg Q6HP PRN PO 05/31/24 19:30 Fat Emulsion Intravenous 100 ml/Sodium Phosphate 20 meq/ Potassium Phosphate 22 meq/ Magnesium Sulfate 14 meq/ Multivitamins 10 ml/Amino Acids/ Dextrose 1,323.5 ml @ 55 mls/hr Q24H4M IV 06/02/24 22:00 06/03/24 21:59 06/02/24 21:48 55 MLS/HR Fat Emulsion Intravenous 150 ml/Sodium Chloride 20 meq/ Sodium Phosphate 60 meq/Potassium Phosphate 22 meq/ Magnesium Sulfate 18 meq/ Multivitamins 10 ml/Amino Acids/ Dextrose 1,439.5 ml @ 60 mls/hr Q24H IV 06/03/24 22:00 06/04/24 21:59 objective PUL DIFF RHONCHI JVD ANGLE OF THE JAW CV RR PMI DIFFUSE EXT 3+ EDEMA laboratory and microbiology Laboratory Tests 06/03/24 06:00 Test 06/03/24 06:00 Range/Units Serum Glucose 104 74-106 mg/dL Problem List SS COMPLEX INCRESEING SOB HARVEY LE EDEMA HFrEF CHRONIC AND ACUTE EF < 20% NOW WITH HEMOPTYSIS TACHYCARDIA CTA LUNG C/W PE 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 Large filling defect right pulmonary artery consistent with pulmonary embolus. No film findings of pulmonary artery hypertension. No pulmonary emboli noted on the left. 2. Findings are also suggestive of right heart strain. 3. Large right pleural effusion. HEPARIN DRIP\ LASIX DRIP WILL START ORAL ANTICOAGULATION IN 48 HOURS ABX LE ARTERIAL DOPPLER NO SIGNIFICANT DISEASE FOR LIMB RISK DC HEPARIN START ELIQUIS S/P CT HEAD CURRENTLY ON BiPAP IMPROVING RESP STATUS 7.32/59/69 TITRATE BIPAP THORACENTESIS ULTRASOUND GUIDED MRI OF ABD S/P THORACENTESIS 2200 CC DRAINED CXR BILATERAL INFILTRATE PROMINENT MEDIASTINUM CARDIOMEGALY HYPOKALEMIA BEING CORRECTED A FLUTTER S/P CARDIOVERSION SINUS RHYTHM TITRATE OFF LEVOPHED USE ALBUMIN FOR PRESSURE SUPORT DC LASIX DRIP START D5 1/4 NS AT 125 CC/HR BMP/ BNP DAILY cont volume replacement contraction alkalosis leukocytosis improved monitor h/h HYPERNATREMIA IMPROVING DIAMOX X 1 DOSE HYPERNATREMIA CORRECTED DC IV FLUID CONT TPN METABOLIC ALKALOSIS IMPROVED BUT NOW WITH RESP ACIDOSIS CORRECT VENT RATE Dietary Evaluation Review Comments: 1. consider Renal Specific 70g protein restriction witn 2GNa, 3K, low Phos, if no diaylsis needed. 2. consider Renal Standard 2gn, 3K, low phosphate diet if Pt is on dialysis. 3. encourage and monitor po intake to meet 75% of his needs. Expected Outcomes/Goals: avoid uremic symptoms, gradual healed wounds. Plan discussed with: Other Critical Care Time(min): 35 ISSAC SHAH MD Jun 03, 2024 13:14
[2024-06-03 14:59] LABS: Base Excess 4.4 mmol/L (-2.0-3.0)
--- NOTE | 2024-06-03 18:53 | DVHPN2 ---
Progress Note - Dictate Date Seen: Jun 03, 2024 Medical Necessity Reason Pt with a Central, PICC or Fol: Yes The following are medically ne: Olsen Catheter Reason for olsen catheter: Strict I&O Subjective Patient seen and examined at bedside. Sedated, intubated on mechanical ventilator. Overnight events reviewed. vital signs Vital Sign Date Time Temp Pulse Resp B/P (MAP) Pulse Ox O2 Delivery O2 Flow Rate FiO2 06/03/24 18:19 78 24 107/44 (65) 98 30 06/03/24 16:00 Mechanical Ventilator+ 06/03/24 12:00 98.2 98.2 Total Intake and Output 06/02/24 06/02/24 06/03/24 15:00 23:00 07:00 Intake Total 1705.50 ml 1973.5 ml 1754.5 ml Output Total 1475 ml 1825 ml Balance 1705.50 ml 498.5 ml -70.5 ml medications Current Medications Medications Dose Ordered Sig/Amy Route Start Time Stop Time Status Last Admin Dose Admin Digoxin 0.125 mg DAILY PO 05/19/24 10:00 06/03/24 09:42 0.125 MG Spironolactone 25 mg DAILY PO 05/21/24 10:00 06/03/24 09:42 25 MG Apixaban 5 mg BID PO 05/30/24 10:00 06/03/24 09:42 5 MG Midazolam HCl 50 ml @ 1 mls/hr Q24H IV 05/26/24 22:00 06/03/24 13:47 4 MLS/HR Fentanyl Citrate 250 ml @ 2.5 mls/hr Q24H IV 05/26/24 22:00 06/03/24 02:47 7.5 MLS/HR Norepinephrine Bitartrate 250 ml @ 3.75 mls/hr Q24H IV 05/26/24 22:00 06/03/24 13:47 18.75 MLS/HR Potassium Chloride 100 ml @ 50 mls/hr Q2H IV 05/27/24 17:15 05/28/24 01:14 UNV Amino Acids 0 ml @ 0 mls/hr PER PHARMACY IV 05/30/24 12:00 Diagnostic Test (Pha) 1 strip Q6HR 05/30/24 18:00 06/03/24 11:33 1 STRIP Insulin Human Regular FOLLOW SLIDING SCALE Q6HR SC 05/30/24 18:00 06/03/24 11:36 2 UNITS Dextrose 50 ml UD IV 05/30/24 12:15 Acetaminophen 650 mg Q6HP PRN PO 05/31/24 19:30 Fat Emulsion Intravenous 100 ml/Sodium Phosphate 20 meq/ Potassium Phosphate 22 meq/ Magnesium Sulfate 14 meq/ Multivitamins 10 ml/Amino Acids/ Dextrose 1,323.5 ml @ 55 mls/hr Q24H4M IV 06/02/24 22:00 06/03/24 21:59 06/02/24 21:48 55 MLS/HR Fat Emulsion Intravenous 150 ml/Sodium Chloride 20 meq/ Sodium Phosphate 60 meq/Potassium Phosphate 22 meq/ Magnesium Sulfate 18 meq/ Multivitamins 10 ml/Amino Acids/ Dextrose 1,439.5 ml @ 60 mls/hr Q24H IV 06/03/24 22:00 06/04/24 21:59 objective Gen.: Patient lying in bed in medical ICU. Sedated, intubated on mechanical ventilator. Head: Normocephalic, atraumatic. Eyes: PERRLA. Ears: Normal external anatomy. Throat: Endotracheal tube and orogastric tube in place. Neck: Supple, trachea midline. Chest: Transmitted breath sounds bilaterally. Decreased air entry bilaterally. No wheezing. Bibasilar crackles. Cardio vascular: Positive S1, positive S2. Regular rate and rhythm. Abdomen: Positive bowel sounds in all 4 quadrants. Soft, nontender, nondistended. : Olsen in place. Normal external genitalia. Rectal: Deferred Skin: Warm, dry. Intact. Extremities: 2+ radial pulses bilaterally. No lower extremity edema. Neuro: Sedated. laboratory and microbiology Laboratory Tests 06/03/24 06:00 Test 06/03/24 06:00 Range/Units Serum Glucose 104 74-106 mg/dL Assessment/Plan Impression: Acute hypoxic respiratory failure Mechanical ventilator Pleural effusion, right Atelectasis CHF exacerbation Pulmonary embolism Obesity with a BMI of 30.1 Events: Remains on vent support On assist control with respiratory rate of 18 -->20, tidal volume 400, PEEP of 8, FiO2 at 30%. Sedated on Versed, Fentanyl TPN for nutritional support IV flujds - D5 + 0.2% normal saline at 130 ml/hr. ABG reviewed, notable for acidemia CXR demonstrates Multifocal airspace disease. Small right pleural effusion. No pneumothorax. Devices in place. On pressors for hemodynamic support. Levophed 10 mcg/min Titrate to keep MAP above 65 mmHg/SBP above 90 mmHg. Improved pressor requirements On Eliquis for PE Monitor renal function Monitor electrolytes. Supplement as necessary. Monitor ins and outs. Plan to perform bronchoscopy. Limited chest ultrasound will be performed to assess if pleural effusion amenable for thoracentesis. S/p bronchoscopy w/ RML BAL on 05/28/24 - Cleared bloody secretions from L1-L10 and R1-R10 See separate procedure note for details. S/p cardioversion on 05/27/24 Labs and imaging reviewed. Rest of plan as noted below. Plan: s/p intubation on mechanical ventilator Status post right thoracentesis with removal of 2200 mL ABG reviewed. Alkalemia due to contraction alkalosis. Hypoxemia with a PO2 of 42 mmHg. Patient was emergently intubated and placed on mechanical ventilation. Currently on assist control with respiratory rate of 20, tidal volume 400, PEEP of 8, FiO2 at 30%. Titrate FIO2 to keep O2 saturation above 92%. VAP bundle Daily ABG and CXR while intubated. Sedate for ventilatory synchrony On pressors for hemodynamic support. Titrate to keep MAP above 65 mmHg/SBP above 90 mmHg. Continue antibiotics. F/u cultures. Monitor renal function due to Acute kidney injury. Monitor electrolytes. Supplement as necessary. Monitor ins and outs Maintain euvolemia Cardiology recommendations appreciated. Nutritional support. Accu-Cheks, ISS. GI/DVT prophylaxis. Condition: Critical Prognosis: Poor given multiple comorbidities. Rest of plan per hospitalist and other consultants. A total of 35 minutes of critical care time was spent reviewing the patient record, examining the patient, making a diagnostic and therapeutic plan, discussing this plan with the medical personnel, following up on diagnostic studies and following the patient for clinical stability excluding any and all procedures. At least 50% of this time was spent in direct, [id number] contact. Thank you Dr. Conn for allowing me to participate in this patient's care. Further recommendations will depend on patient's clinical course. Please do not hesitate to contact me if you have any questions or concerns. This medical document was created using an electronic medical record system with [employer] system. Although this document has been carefully reviewed, there may still be some phonetic and typographical errors. These areas are purely typographical due to imperfections of the software programs, and do not reflect any compromise in the patient's medical care. Dietary Evaluation Review Comments: 1. consider Renal Specific 70g protein restriction witn 2GNa, 3K, low Phos, if no diaylsis needed. 2. consider Renal Standard 2gn, 3K, low phosphate diet if Pt is on dialysis. 3. encourage and monitor po intake to meet 75% of his needs. Expected Outcomes/Goals: avoid uremic symptoms, gradual healed wounds. Plan discussed with: Other (CALEB Zuleta) Critical Care Time(min): 35 BOGDAN MANN MD Jun 03, 2024 18:53
--- NOTE | 2024-06-03 21:41 | DVHNC2 ---
Procedure - Femoral Arterial Line Procedure Note INDICATION: SHOCK PROCEDURE BIOMEDICAL ANALYTICAL SCIENTIST: DR Carly MANN CONSENT: Consent was obtained from HCP prior to the procedure. Indications, risks, and benefits were explained at length. Time out 2110 pm Patient medications and allergies reviewed. The risks and benefits of the procedure and the sedation options and risk were discussed with the patient's healthcare proxy. All questions were answered and informed consent was obtained. Patient identification and proposed procedure were verified prior to the procedure by the physician, and a nurse in the patient's room. The heart rate, respiratory rate, oxygen saturations, blood pressure, adequacy of pulmonary ventilation, and response to care were monitored throughout the procedure. The physical status of the patient was reassessed after the procedure. PROCEDURE SUMMARY: A time out was performed. My hands were washed immediately prior to the procedure. I wore a surgical cap, mask with protective eyewear, sterile gown and sterile gloves throughout the procedure. The RIGHT inguinal region was prepped using chlorhexidine scrub and draped in sterile fashion using a three quarter sheet drape and sterile towels. The femoral pulse was identified. Anesthesia was achieved using 1% lidocaine. Palpating the femoral pulse throughout the procedure and visualization on ultrasound using the linear ultrasound probe in the transverse orientation. The femoral artery was identified and avoided utilizing color-flow. The femoral artery was then placed in the center of the ultrasound field and pulsation was evident. A movement artifact was identified as the needle was advanced through the skin and advanced toward the vessel. A real time hyperechoic signal revealed visualization of vascular needle entry into the lumen of the femoral artery as blood was noted to flashback in the syringe. Arterial blood was withdrawn. The syringe was removed and a guidewire was advanced through the needle into the femoral artery. The needle was exchanged over the wire for an arterial catheter. The wire was removed and the catheter was secured to the skin using 2 sutures. The patient tolerated the procedure without any hemodynamic compromise. At time of procedure completion, the catheter was connected to the engine monitor and calibrated. Appropriate waveform and blood pressure tracing was observed. Estimated blood loss is 5mL. CPT 52696 arterial line placement CPT 77362 ultrasound Add On BOGDAN MANN MD Jun 03, 2024 21:41
--- NOTE | 2024-06-03 21:43 | DVHNC2 ---
Procedure - Ultrasound-guided RIGHT thoracentesis procedure note: Physician: Dr Carly Scott Time out time: 2114 pm Patient medications and allergies reviewed. The risks and benefits of the pr ocedure and the sedation options and risk were discussed with the patient's healthcare proxy. All questions were answered and informed consent was obtained. Patient identification and proposed procedure were verified prior to the procedure by the physician, and a nurse in the patient's room. The heart rate, respiratory rate, oxygen saturations, blood pressure, adequacy of pulmon dick ventilation, and response to care were monitored throughout the procedure. The physical status of the patient was reassessed after the procedure. Date: 06/03/2024 Consent: Consent was obtained from patient's healthcare proxy prior to procedure. Indication, risks, and benefits were explained at length. Procedure summary: A timeout was performed and a chest x-ray was reviewed prior to procedure. The appropriate site was confirmed and marked. My hands were washed immediately prior to the procedure, I wore a surgical cap, mask with protective eyewear, sterile gown and sterile gloves throughout the procedure. The patient was prepped and draped in a sterile manner using chlorhexidine scrub after the appropriate level was percussed and confirmed by ultrasound. 1% lidocaine was used to anesthetize the skin, subcutaneous tissue, superior aspect of the rib periosteum and parietal pleura. A finder needle was then introduced over the superior aspect of the rib to locate the pleural fluid; sero-sanguinous fluid was aspirated. Thoracentesis needle was then introduced through the skin incision into the pleural space using negative aspiration pressure. The thoracentesis catheter was then threaded without difficulty. 1700 mL's of sero- sanguinous colored fluid were removed without difficulty. The catheter was then removed. No immediate complications were noted during the procedure. A postprocedure chest x-ray is pending at the time of this note. The pleural fluid will be sent for cultures and cytology. Estimated blood loss is less than 5 mL's. CPT: 88756 BOGDAN SCOTT MD Jun 03, 2024 21:43
--- NOTE | 2024-06-03 21:46 | DVHNC2 ---
Procedure - Therapeutic Bronchoscopy procedure note: Indications: Blood secretions via ET tube, Possible mucous plugging. Medicines: See supervisor hot dip plating notes. Complications: None Time out time: 2044 pm Procedure: Patient medications and allergies reviewed. The risks and benefits of the procedure and the sedation options and risk were discussed with the patient's healthcare proxy. All questions were answered and informed consent was obtained. Patient identification and proposed procedure were verified prior to the procedure by the physician, and a nurse, and the respiratory therapist in ICU room. The heart rate, respiratory rate, oxygen saturations, blood pressure, adequacy of pulmonary ventilation, and response to care were monitored throughout the procedure. The physical status of the patient was reassessed after the procedure. After obtaining informed consent, the bronchoscope was introduced through the endotracheal tube and advanced into the trachea bronchial tree of both lungs. The procedure was accomplished without difficulty. The patient tolerated the procedure well. Findings: The trachea is in normal caliber. The fredo is sharp. The tracheobronchial tree of the right lung was examined to at least the first subsegmental level. The bronchial mucosa and anatomy in the right lung are normal. There are no endobronchial lesions. There was copious whitish secretions from right main stem bronchus onward throughout R1-R3. Mucous plugging removed from R1-R3. The left upper lobe, lingula, and left lower lobe were examined to at least the first subsegmental level. Bronchial mucosa and anatomy in the left upper lobe and lingula are normal. There were no endobronchial lesions. There was copious whitish secretions from left main stem bronchus onward throughout L1-L4 and L5- L10. Mucous plugging removed from L6-L10. There was no active bleeding at the completion of the procedure. Estimated blood loss: Less than 5 mL. Impression: Left lower lobe atelectasis due to mucous plugging Mucous plugging from L6-L10, L1-L5 and R1-R3 Recommendation: Pulmonary toileting. Procedure codes: 46736, bronchoscopy, rigid and flexible, including fluoroscopic guidance, one performed; with bronchial endobronchial removal of mucous plugging, single or multiple sites BOGDAN MANN MD Jun 03, 2024 21:46
--- NOTE | 2024-06-03 21:46 | DVH ---
CHEST RADIOGRAPH Indication: POST THORACENTESIS Technique: Single frontal view of the chest was obtained COMPARISON: XY CHEST PORTABLE on DOS: 06/03/24, XY CHEST PORTABLE on DOS: 06/02/24, XY CHEST XRAY 1 VIE W on DOS: 06/01/24, XY CHEST PORTABLE on DOS: 05/31/24, XY CHEST XRAY 1 VIEW on DOS: 05/30/24 FINDINGS: Lines and Tubes: Endotracheal tube terminates above the fredo. Enteric tube extends into the stomach Lungs: Stable bilateral lung opacities. Pleura: Interval decrease of right-sided effusion which is now trace. Stable small left effusion. No pneumothorax. Cardiomediastinal contours: Unremarkable Bones: Unremarkable IMPRESSION: 1. Interval decrease of right-sided effusion which is now trace. No significant pneumothorax. 2. Stable bilateral lung opacities. 3. Stable small left effusion.
[2024-06-03] MEDS: TPN PER PHARMACY IV NR (21:51)
[2024-06-04] VITALS (106 sets, daily range): BP systolic 94–144; BP diastolic 23–89; PULSE 70–90; RESP 11–25; TEMP 97.3–98.1; O2SAT 93–100
--- NOTE | 2024-06-04 04:55 | DVH ---
CHEST RADIOGRAPH Indication: INTUBATED Technique: Single frontal view of the chest was obtained COMPARISON: XY CHEST PORTABLE on DOS: 06/03/24, XY CHEST PORTABLE on DOS: 06/03/24, XY CHEST PORTABLE o n DOS: 06/02/24, XY CHEST XRAY 1 VIEW on DOS: 06/01/24, XY CHEST PORTABLE on DOS: 05/31/24 FINDINGS: Lines and Tubes: Endotracheal tube and enteric catheter and left central venous catheter in satisfact ory position. Lungs: Multifocal airspace disease. Pleura: No effusion. No pneumothorax. Cardiomediastinal contours: Cardiomegaly Bones: Unremarkable IMPRESSION: Lines and tubes in satisfactory position. No significant interval change.
[2024-06-04 06:27] LABS: Anion Gap 2 (5-15); BUN/Creatinine Ratio 57.9 (10.0-20.0); Blood Urea Nitrogen 22 mg/dL (9-23); Carbon Dioxide 31 mmol/L (20-31); Chloride 103 mmol/L (98-107); Magnesium 1.9 mg/dL (1.6-2.6); Potassium 4.5 mmol/L (3.5-5.1); Sodium 136 mmol/L (136-145)
[2024-06-04 06:28] LABS: Basophils # (auto) 0 10 ^3/uL (0-0.2); Basophils % (auto) 0.3 % (0.0-2.0); Eosinophils # (auto) 0.1 10 ^3/uL (0-0.8); Eosinophils % (auto) 1.9 % (0.0-7.0); Hematocrit 36.2 % (41.0-53.0); Hemoglobin 11.7 g/dL (13.5-17.5); Lymphocytes # (auto) 0.3 10 ^3/uL (0.4-5.4); Lymphocytes % (auto) 4.2 % (10.0-50.0); Mean Corpuscular Hemoglobin 27.1 pg (28.0-32.0); Mean Corpuscular Hgb Conc. 32.3 g/dL (32.0-36.0); Monocytes # (auto) 0.2 10 ^3/uL (0-1.3); Monocytes % (auto) 3.4 % (0.0-12.0); Neutrophils # (auto) 5.5 10 ^3/uL (1.6-8.6); Neutrophils % (auto) 90.2 % (37.0-80.0); Nucleated Red Blood Cells % 0.2 %; Platelet Count (auto) 83 10^3/uL (140-450); Red Blood Cells 4.31 10^6/uL (4.5-5.90); Red Cell Distribution Width 16.9 % (11.8-14.3); White Blood Cell 6.1 10^3/uL (4.4-10.8)
[2024-06-04 06:31] LABS: Alanine Aminotransferase 136 U/L (7-40); Albumin 2.2 g/dL (3.2-4.8); Alkaline Phosphatase 125 U/L (46-116); Aspartate Aminotransferase 278 U/L (13-40); Bilirubin, Total 2.6 mg/dL (0.2-1.0); Calcium 8.4 mg/dL (8.7-10.4); Glucose 112 mg/dL (74-106); Total Protein 4.6 g/dL (5.7-8.2)
[2024-06-04 07:46] LABS: Base Excess 2.4 mmol/L (-2.0-3.0)
--- NOTE | 2024-06-04 09:31 | CONS ---
Pharmacy Clinical Information: CQM HF. Patient is currently hemodynamically unstable and is mechanically ve ntilated. Additionally the BP is low. When patient is stable and BP is normalized, please consider adding ACEI/ARB/ARNI. SGLT2, and EBBB. SANDHYA CHOWDARY PHARMACIST Jun 04, 2024 09:31
[2024-06-04] MEDS: NOREPINEPHRINE 8 MG/250ML KIT 250 ML IV SCH (10:30)
--- NOTE | 2024-06-04 10:33 | DVHPN2 ---
Progress Note - Dictate Date Seen: May 23, 2024 Medical Necessity Reason Pt with a Central, PICC or Fol: Yes The following are medically ne: Losen Catheter Reason for olsen catheter: Strict I&O Subjective PT WITH SS COMPLEX INCRESEING SOB HARVEY LE EDEMA HFrEF CHRONIC AND ACUTE NOW WITH HEMOPTYSIS TACHYCARDIA CTA LUNG C/W PE ACUTE vital signs Vital Sign Date Time Temp Pulse Resp B/P (MAP) Pulse Ox O2 Delivery O2 Flow Rate FiO2 06/04/24 10:11 75 06/04/24 09:56 24 120/42 (68) 98 30 06/04/24 08:00 97.5 97.5 06/04/24 08:00 Mechanical Ventilator+ Total Intake and Output 06/03/24 06/03/24 06/04/24 15:00 23:00 07:00 Intake Total 1398.25 ml 567.00 ml 762.00 ml Output Total 1350 ml 2600 ml Balance 1398.25 ml -783.00 ml -1838.00 ml medications Current Medications Medications Dose Ordered Sig/Amy Route Start Time Stop Time Status Last Admin Dose Admin Digoxin 0.125 mg DAILY PO 05/19/24 10:00 06/04/24 10:11 0.125 MG Spironolactone 25 mg DAILY PO 05/21/24 10:00 06/04/24 10:11 25 MG Apixaban 5 mg BID PO 05/30/24 10:00 06/04/24 10:11 5 MG Midazolam HCl 50 ml @ 1 mls/hr Q24H IV 05/26/24 22:00 06/04/24 03:10 4 MLS/HR Fentanyl Citrate 250 ml @ 2.5 mls/hr Q24H IV 05/26/24 22:00 06/03/24 23:32 12.5 MLS/HR Norepinephrine Bitartrate 250 ml @ 3.75 mls/hr Q24H IV 05/26/24 22:00 06/04/24 03:11 18.75 MLS/HR Potassium Chloride 100 ml @ 50 mls/hr Q2H IV 05/27/24 17:15 05/28/24 01:14 UNV Amino Acids 0 ml @ 0 mls/hr PER PHARMACY IV 05/30/24 12:00 Diagnostic Test (Pha) 1 strip Q6HR 05/30/24 18:00 06/04/24 06:06 1 STRIP Insulin Human Regular FOLLOW SLIDING SCALE Q6HR SC 05/30/24 18:00 06/03/24 11:36 2 UNITS Dextrose 50 ml UD IV 05/30/24 12:15 Acetaminophen 650 mg Q6HP PRN PO 05/31/24 19:30 Fat Emulsion Intravenous 150 ml/Sodium Chloride 20 meq/ Sodium Phosphate 60 meq/Potassium Phosphate 22 meq/ Magnesium Sulfate 18 meq/ Multivitamins 10 ml/Amino Acids/ Dextrose 1,439.5 ml @ 60 mls/hr Q24H IV 06/03/24 22:00 06/04/24 21:59 06/03/24 21:51 60 MLS/HR objective PUL DIFF RHONCHI JVD ANGLE OF THE JAW CV RR PMI DIFFUSE EXT 3+ EDEMA laboratory and microbiology Laboratory Tests 06/04/24 05:07 Test 06/04/24 05:07 Range/Units Serum Glucose 112 H 74-106 mg/dL Problem List SS COMPLEX INCRESEING SOB HARVEY LE EDEMA HFrEF CHRONIC AND ACUTE EF < 20% NOW WITH HEMOPTYSIS TACHYCARDIA CTA LUNG C/W PE 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 Large filling defect right pulmonary artery consistent with pulmonary embolus. No film findings of pulmonary artery hypertension. No pulmonary emboli noted on the left. 2. Findings are also suggestive of right heart strain. 3. Large right pleural effusion. HEPARIN DRIP\ LASIX DRIP WILL START ORAL ANTICOAGULATION IN 48 HOURS ABX LE ARTERIAL DOPPLER NO SIGNIFICANT DISEASE FOR LIMB RISK DC HEPARIN START ELIQUIS S/P CT HEAD CURRENTLY ON BiPAP IMPROVING RESP STATUS 7./69 TITRATE BIPAP THORACENTESIS ULTRASOUND GUIDED MRI OF ABD S/P THORACENTESIS 2200 CC DRAINED CXR BILATERAL INFILTRATE PROMINENT MEDIASTINUM CARDIOMEGALY HYPOKALEMIA BEING CORRECTED A FLUTTER S/P CARDIOVERSION SINUS RHYTHM TITRATE OFF LEVOPHED USE ALBUMIN FOR PRESSURE SUPORT DC LASIX DRIP START D5 1/4 NS AT 125 CC/HR BMP/ BNP DAILY cont volume replacement contraction alkalosis leukocytosis improved monitor h/h HYPERNATREMIA IMPROVING DIAMOX X 1 DOSE HYPERNATREMIA CORRECTED DC IV FLUID CONT TPN INCREASE VENT SETTING TO AC 22 EPISODE OF VT CORRECT ACIDOSIS MAG SO4 2 G TITRATE OFF LEVOPHED Dietary Evaluation Review Comments: 1. consider Renal Specific 70g protein restriction witn 2GNa, 3K, low Phos, if no diaylsis needed. 2. consider Renal Standard 2gn, 3K, low phosphate diet if Pt is on dialysis. 3. encourage and monitor po intake to meet 75% of his needs. Expected Outcomes/Goals: avoid uremic symptoms, gradual healed wounds. Plan discussed with: Patient Critical Care Time(min): 35 ISSAC SHAH MD Jun 04, 2024 10:33
[2024-06-04] MEDS: MAGNESIUM SULFATE 1GM/100ML 100 ML IV SCH (11:00)
[2024-06-04] MEDS ORDERED: ALBUMIN 25% 100 ML IV ONE ×2 (14:30)
[2024-06-04] MEDS: ALBUMIN 25% 200 ML IV ONE (15:00)
[2024-06-04] MEDS ORDERED: ALBUMIN 25% 200 ML IV ONE (16:15)
[2024-06-04] MEDS: ALBUMIN 25% 50 ML IV SCH (17:19)
[2024-06-04] MEDS: TPN PER PHARMACY IV NR (22:01)
[2024-06-04 22:10] LABS: Anion Gap 2 (5-15); Chloride 104 mmol/L (98-107); Glucose 100 mg/dL (74-106); Potassium 4.2 mmol/L (3.5-5.1); Sodium 139 mmol/L (136-145)
[2024-06-04 22:11] LABS: Alanine Aminotransferase 126 U/L (7-40); Albumin 2.6 g/dL (3.2-4.8); Alkaline Phosphatase 130 U/L (46-116); Aspartate Aminotransferase 229 U/L (13-40); Bilirubin, Total 2.6 mg/dL (0.2-1.0); Blood Urea Nitrogen 24 mg/dL (9-23); Calcium 8.5 mg/dL (8.7-10.4); Carbon Dioxide 33 mmol/L (20-31); Total Protein 4.9 g/dL (5.7-8.2)
--- NOTE | 2024-06-04 22:46 | DVHPN2 ---
Progress Note - Dictate Date Seen: Jun 04, 2024 Medical Necessity Reason Pt with a Central, PICC or Fol: Yes The following are medically ne: Olsen Catheter Reason for olsen catheter: Strict I&O Subjective Patient seen and examined at bedside. Sedated, intubated on mechanical ventilator. Overnight events reviewed. vital signs Vital Sign Date Time Temp Pulse Resp B/P (MAP) Pulse Ox O2 Delivery O2 Flow Rate FiO2 06/04/24 21:56 88 22 98/45 (62) 100 30 06/04/24 20:00 Mechanical Ventilator+ 06/04/24 16:00 97.3 97.3 Total Intake and Output 06/03/24 06/03/24 06/04/24 15:00 23:00 07:00 Intake Total 1398.25 ml 567.00 ml 762.00 ml Output Total 1350 ml 2600 ml Balance 1398.25 ml -783.00 ml -1838.00 ml medications Current Medications Medications Dose Ordered Sig/Amy Route Start Time Stop Time Status Last Admin Dose Admin Digoxin 0.125 mg DAILY PO 05/19/24 10:00 06/04/24 10:11 0.125 MG Spironolactone 25 mg DAILY PO 05/21/24 10:00 06/04/24 10:11 25 MG Apixaban 5 mg BID PO 05/30/24 10:00 06/04/24 22:08 5 MG Midazolam HCl 50 ml @ 1 mls/hr Q24H IV 05/26/24 22:00 06/04/24 14:34 4 MLS/HR Fentanyl Citrate 250 ml @ 2.5 mls/hr Q24H IV 05/26/24 22:00 06/04/24 18:26 12.5 MLS/HR Potassium Chloride 100 ml @ 50 mls/hr Q2H IV 05/27/24 17:15 05/28/24 01:14 UNV Amino Acids 0 ml @ 0 mls/hr PER PHARMACY IV 05/30/24 12:00 Diagnostic Test (Pha) 1 strip Q6HR 05/30/24 18:00 06/04/24 18:00 1 STRIP Insulin Human Regular FOLLOW SLIDING SCALE Q6HR SC 05/30/24 18:00 06/03/24 11:36 2 UNITS Dextrose 50 ml UD IV 05/30/24 12:15 Acetaminophen 650 mg Q6HP PRN PO 05/31/24 19:30 Norepinephrine Bitartrate 250 ml @ 3.75 mls/hr Q24H IV 06/04/24 10:30 06/04/24 10:30 18.75 MLS/HR Fat Emulsion Intravenous 150 ml/Sodium Chloride 40 meq/ Sodium Phosphate 40 meq/Magnesium Sulfate 20 meq/ Multivitamins 10 ml/Amino Acids/ Dextrose 1,535 ml @ 64 mls/hr Q24H IV 06/04/24 22:00 06/05/24 21:59 06/04/24 22:01 64 MLS/HR Albumin Human 50 ml @ 100 mls/hr Q30MIN IV 06/04/24 17:00 06/07/24 17:29 06/04/24 19:26 100 MLS/HR objective Gen.: Patient lying in bed in medical ICU. Sedated, intubated on mechanical ventilator. Head: Normocephalic, atraumatic. Eyes: PERRLA. Ears: Normal external anatomy. Throat: Endotracheal tube and orogastric tube in place. Neck: Supple, trachea midline. Chest: Transmitted breath sounds bilaterally. Decreased air entry bilaterally. No wheezing. Bibasilar crackles. Cardio vascular: Positive S1, positive S2. Regular rate and rhythm. Abdomen: Positive bowel sounds in all 4 quadrants. Soft, nontender, nondistended. : Olsen in place. Normal external genitalia. Rectal: Deferred Skin: Warm, dry. Intact. Extremities: 2+ radial pulses bilaterally. No lower extremity edema. Neuro: Sedated. laboratory and microbiology Laboratory Tests 06/04/24 21:40 06/04/24 05:07 Test 06/04/24 21:40 Range/Units Serum Glucose 100 74-106 mg/dL Assessment/Plan Impression: Acute hypoxic respiratory failure Mechanical ventilator Pleural effusion, right Atelectasis CHF exacerbation Pulmonary embolism Obesity with a BMI of 30.1 Events: Remains on vent support On assist control with respiratory rate of 20 -->22, tidal volume 400, PEEP of 8, FiO2 at 30%. Sedated on Versed, Fentanyl S/p bronchoscopy yesterday - cleared mucous plugging from L6-L10, L1-L5 and R1- R3 S/p right thoracentesis yesterday - 1700 mL of serosanguineous fluid removed from R pleural space. Plan for left thoracentesis today. Please see separate procedure notes for details ABG reviewed, notable for acidemia CXR demonstrates Multifocal airspace disease. No pneumothorax. Devices in place. On pressors for hemodynamic support. Levophed 10 mcg/min Titrate to keep MAP above 65 mmHg/SBP above 90 mmHg. Improved pressor requirements TPN for nutritional support IV fluids - D5 + 0.2% normal saline at 130 ml/hr. On Eliquis for PE Monitor renal function Monitor electrolytes. Supplement as necessary. Magnesium supplementation S/p bronchoscopy w/ RML BAL on 05/28/24 - Cleared bloody secretions from L1-L10 and R1-R10 See separate procedure note for details. S/p cardioversion on 05/27/24 Labs and imaging reviewed. Rest of plan as noted below. Plan: s/p intubation on mechanical ventilator Status post right thoracentesis with removal of 2200 mL ABG reviewed. Alkalemia due to contraction alkalosis. Hypoxemia with a PO2 of 42 mmHg. Patient was emergently intubated and placed on mechanical ventilation. Currently on assist control with respiratory rate of 22, tidal volume 400, PEEP of 8, FiO2 at 30%. Titrate FIO2 to keep O2 saturation above 92%. VAP bundle Daily ABG and CXR while intubated. Sedate for ventilatory synchrony On pressors for hemodynamic support. Titrate to keep MAP above 65 mmHg/SBP above 90 mmHg. Continue antibiotics. F/u cultures. Monitor renal function due to Acute kidney injury. Monitor electrolytes. Supplement as necessary. Monitor ins and outs Maintain euvolemia Cardiology recommendations appreciated. Nutritional support. Accu-Cheks, ISS. GI/DVT prophylaxis. Condition: Critical Prognosis: Poor given multiple comorbidities. Rest of plan per hospitalist and other consultants. A total of 35 minutes of critical care time was spent reviewing the patient record, examining the patient, making a diagnostic and therapeutic plan, discussing this plan with the medical personnel, following up on diagnostic studies and following the patient for clinical stability excluding any and all procedures. At least 50% of this time was spent in direct, [id number] contact. Thank you Dr. Conn for allowing me to participate in this patient's care. Further recommendations will depend on patient's clinical course. Please do not hesitate to contact me if you have any questions or concerns. This medical document was created using an electronic medical record system with Dragon computerized dictation system. Although this document has been carefully reviewed, there may still be some phonetic and typographical errors. These areas are purely typographical due to imperfections of the software programs, and do not reflect any compromise in the patient's medical care. Dietary Evaluation Review Comments: 1. consider Renal Specific 70g protein restriction witn 2GNa, 3K, low Phos, if no diaylsis needed. 2. consider Renal Standard 2gn, 3K, low phosphate diet if Pt is on dialysis. 3. encourage and monitor po intake to meet 75% of his needs. Expected Outcomes/Goals: avoid uremic symptoms, gradual healed wounds. Plan discussed with: Other (CALEB Zuleta) Critical Care Time(min): 35 BOGDAN MANN MD Jun 04, 2024 22:46
[2024-06-05] VITALS (102 sets, daily range): BP systolic 93–159; BP diastolic 30–100; PULSE 76–109; RESP 10–26; TEMP 97.5–99.5; O2SAT 95–100
[2024-06-05] MEDS: fentaNYL Drip 2500mCg/250mlNS 250 ML IV SCH
--- NOTE | 2024-06-05 05:26 | DVH ---
CHEST RADIOGRAPH Indication: INTUBATED Technique: Single frontal view of the chest was obtained Comparison: XY CHEST PORTABLE on DOS: 06/04/24, XY CHEST PORTABLE on DOS: 06/03/24, XY CHEST PORTABLE o n DOS: 06/03/24, XY CHEST PORTABLE on DOS: 06/02/24, XY CHEST XRAY 1 VIEW on DOS: 06/01/24, XY CHEST POR TABLE on DOS: 06/04/24 FINDINGS: Lines and Tubes: Endotracheal tube and enteric catheter and left central venous catheter in satisfact ory position. Lungs: Multifocal airspace disease. Pleura: No effusion. No pneumothorax. Cardiomediastinal contours: Cardiomegaly Bones: Unremarkable IMPRESSION: 1. Lines and tubes in satisfactory position. No significant interval change.
[2024-06-05 06:10] LABS: Basophils # (auto) 0 10 ^3/uL (0-0.2); Eosinophils # (auto) 0.1 10 ^3/uL (0-0.8); Hematocrit 32.3 % (41.0-53.0); Hemoglobin 10.3 g/dL (13.5-17.5); Mean Corpuscular Hemoglobin 26.9 pg (28.0-32.0); Monocytes # (auto) 0.2 10 ^3/uL (0-1.3); Nucleated Red Blood Cells % 0.1 %; Platelet Count (auto) 73 10^3/uL (140-450); Red Blood Cells 3.84 10^6/uL (4.5-5.90)
[2024-06-05 06:16] LABS: Basophils % (auto) 0.4 % (0.0-2.0); Eosinophils % (auto) 1.7 % (0.0-7.0); Lymphocytes # (auto) 0.3 10 ^3/uL (0.4-5.4); Lymphocytes % (auto) 5.3 % (10.0-50.0); Monocytes % (auto) 3.9 % (0.0-12.0); Neutrophils # (auto) 4.4 10 ^3/uL (1.6-8.6); Neutrophils % (auto) 88.7 % (37.0-80.0); Red Cell Distribution Width 17.1 % (11.8-14.3)
[2024-06-05 06:28] LABS: Anion Gap 1 (5-15); BUN/Creatinine Ratio 64.1 (10.0-20.0); Chloride 104 mmol/L (98-107); Glucose 103 mg/dL (74-106); Magnesium 2.1 mg/dL (1.6-2.6); Phosphorus 2.6 mg/dL (2.4-5.1); Potassium 4.2 mmol/L (3.5-5.1); Sodium 139 mmol/L (136-145)
[2024-06-05 06:29] LABS: Alanine Aminotransferase 122 U/L (7-40); Albumin 2.5 g/dL (3.2-4.8); Alkaline Phosphatase 138 U/L (46-116); Aspartate Aminotransferase 217 U/L (13-40); Bilirubin, Total 2.5 mg/dL (0.2-1.0); Blood Urea Nitrogen 25 mg/dL (9-23); Calcium 8.6 mg/dL (8.7-10.4); Carbon Dioxide 34 mmol/L (20-31); Total Protein 4.7 g/dL (5.7-8.2)
[2024-06-05 09:08] LABS: Base Excess 4.3 mmol/L (-2.0-3.0)
--- NOTE | 2024-06-05 12:56 | DVHPN2 ---
Progress Note - Dictate Date Seen: Jun 05, 2024 Medical Necessity Reason Pt with a Central, PICC or Fol: Yes The following are medically ne: Olsen Catheter Reason for olsen catheter: Strict I&O Subjective PT WITH SS COMPLEX INCRESEING SOB HARVEY LE EDEMA HFrEF CHRONIC AND ACUTE NOW WITH HEMOPTYSIS TACHYCARDIA CTA LUNG C/W PE ACUTE vital signs Vital Sign Date Time Temp Pulse Resp B/P (MAP) Pulse Ox O2 Delivery O2 Flow Rate FiO2 06/05/24 12:34 78 12 134/46 (75) 99 30 06/05/24 12:15 98.8 209.8 06/05/24 12:00 Mechanical Ventilator+ Total Intake and Output 06/04/24 06/04/24 06/05/24 15:00 23:00 07:00 Intake Total 828.25 ml 848.00 ml 846.00 ml Output Total 900 ml 1150 ml Balance 828.25 ml -52.00 ml -304.00 ml medications Current Medications Medications Dose Ordered Sig/Amy Route Start Time Stop Time Status Last Admin Dose Admin Digoxin 0.125 mg DAILY PO 05/19/24 10:00 06/05/24 09:15 0.125 MG Spironolactone 25 mg DAILY PO 05/21/24 10:00 06/05/24 09:15 25 MG Apixaban 5 mg BID PO 05/30/24 10:00 06/05/24 09:15 5 MG Midazolam HCl 50 ml @ 1 mls/hr Q24H IV 05/26/24 22:00 06/05/24 04:51 3 MLS/HR Potassium Chloride 100 ml @ 50 mls/hr Q2H IV 05/27/24 17:15 05/28/24 01:14 UNV Amino Acids 0 ml @ 0 mls/hr PER PHARMACY IV 05/30/24 12:00 Diagnostic Test (Pha) 1 strip Q6HR 05/30/24 18:00 06/05/24 11:22 1 STRIP Insulin Human Regular FOLLOW SLIDING SCALE Q6HR SC 05/30/24 18:00 06/03/24 11:36 2 UNITS Dextrose 50 ml UD IV 05/30/24 12:15 Acetaminophen 650 mg Q6HP PRN PO 05/31/24 19:30 Norepinephrine Bitartrate 250 ml @ 3.75 mls/hr Q24H IV 06/04/24 10:30 06/05/24 04:50 18.75 MLS/HR Fat Emulsion Intravenous 150 ml/Sodium Chloride 40 meq/ Sodium Phosphate 40 meq/Magnesium Sulfate 20 meq/ Multivitamins 10 ml/Amino Acids/ Dextrose 1,535 ml @ 64 mls/hr Q24H IV 06/04/24 22:00 06/05/24 21:59 06/04/24 22:01 64 MLS/HR Albumin Human 50 ml @ 100 mls/hr Q30MIN IV 06/04/24 17:00 06/07/24 17:29 06/04/24 19:26 100 MLS/HR Fentanyl Citrate 250 ml @ 2.5 mls/hr Q24H IV 06/05/24 00:00 06/05/24 09:18 15 MLS/HR Fat Emulsion Intravenous 150 ml/Sodium Chloride 20 meq/ Sodium Phosphate 60 meq/Magnesium Sulfate 20 meq/ Multivitamins 10 ml/Amino Acids/ Dextrose 1,535 ml @ 64 mls/hr Q24H IV 06/05/24 22:00 06/06/24 21:59 objective PUL DIFF RHONCHI JVD ANGLE OF THE JAW CV RR PMI DIFFUSE EXT 3+ EDEMA laboratory and microbiology Laboratory Tests 06/05/24 04:56 Test 06/05/24 04:56 Range/Units Serum Glucose 103 74-106 mg/dL Problem List SS COMPLEX INCRESEING SOB HARVEY LE EDEMA HFrEF CHRONIC AND ACUTE EF < 20% NOW WITH HEMOPTYSIS TACHYCARDIA CTA LUNG C/W PE 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 Large filling defect right pulmonary artery consistent with pulmonary embolus. No film findings of pulmonary artery hypertension. No pulmonary emboli noted on the left. 2. Findings are also suggestive of right heart strain. 3. Large right pleural effusion. HEPARIN DRIP\ LASIX DRIP WILL START ORAL ANTICOAGULATION IN 48 HOURS ABX LE ARTERIAL DOPPLER NO SIGNIFICANT DISEASE FOR LIMB RISK DC HEPARIN START ELIQUIS S/P CT HEAD CURRENTLY ON BiPAP IMPROVING RESP STATUS 7.32/69 TITRATE BIPAP THORACENTESIS ULTRASOUND GUIDED MRI OF ABD S/P THORACENTESIS 2200 CC DRAINED CXR BILATERAL INFILTRATE PROMINENT MEDIASTINUM CARDIOMEGALY HYPOKALEMIA BEING CORRECTED A FLUTTER S/P CARDIOVERSION SINUS RHYTHM TITRATE OFF LEVOPHED USE ALBUMIN FOR PRESSURE SUPORT DC LASIX DRIP START D5 1/4 NS AT 125 CC/HR BMP/ BNP DAILY cont volume replacement contraction alkalosis leukocytosis improved monitor h/h HYPERNATREMIA IMPROVING DIAMOX X 1 DOSE HYPERNATREMIA CORRECTED DC IV FLUID CONT TPN INCREASE VENT SETTING TO AC 22 EPISODE OF VT CORRECT ACIDOSIS MAG SO4 2 G TITRATE OFF LEVOPHED DIAMOX TREAT METABOLIC ALKALOSIS RESP ACIDOSIS Dietary Evaluation Review Comments: 1. consider Renal Specific 70g protein restriction witn 2GNa, 3K, low Phos, if no diaylsis needed. 2. consider Renal Standard 2gn, 3K, low phosphate diet if Pt is on dialysis. 3. encourage and monitor po intake to meet 75% of his needs. Expected Outcomes/Goals: avoid uremic symptoms, gradual healed wounds. Plan discussed with: Other Critical Care Time(min): 35 ISSAC SHAH MD Jun 05, 2024 12:56
[2024-06-05] MEDS: acetaZOLAMIDE SODIUM 500 MG VL IV ONE (13:00)
[2024-06-05] MEDS: DOPamine 1600MCG/ML D5W 250 ML IV SCH (15:16)
--- NOTE | 2024-06-05 22:10 | DVHNC2 ---
Procedure - Ultrasound-guided LEFT thoracentesis procedure note: Physician: Dr Carly Scott Date: 06/05/2024 Time out time: 2145 pm Consent: Consent was obtained from patient's healthcare proxy prior to procedure. Indication, risks, and benefits were explained at length. Procedure summary: A timeout was performed and a chest x-ray was reviewed prior to procedure. The appropriate site was confirmed and marked. My hands were washed immediately prior to the procedure, I wore a surgical cap, mask with protective eyewear, sterile gown and sterile gloves throughout the procedure. The patient was prepped and draped in a sterile manner using chlorhexidine scrub after the appropriate level was percussed and confirmed by ultrasound. 1% lidocaine was used to anesthetize the skin, subcutaneous tissue, superior aspect of the rib periosteum and parietal pleura. A finder needle was then introduced over the superior aspect of the rib to locate the pleural fluid; joycelyn fluid was aspirated. Thoracentesis needle was then introduced through the skin incision into the pleural space using negative aspiration pressure. The thoracentesis catheter was then threaded without difficulty. 950 mL's of joycelyn colored fluid were removed without difficulty. The catheter was then removed. No immediate complications were noted during the procedure. A postprocedure chest x-ray is pending at the time of this note. The pleural fluid will be sent for cultures and cytology. Estimated blood loss is less than 5 mL's. CPT: 88936 BOGDAN SCOTT MD Jun 05, 2024 22:10
--- NOTE | 2024-06-05 22:11 | DVHPN2 ---
Progress Note - Dictate Date Seen: Jun 05, 2024 Medical Necessity Reason Pt with a Central, PICC or Fol: Yes The following are medically ne: Olsen Catheter Reason for olsen catheter: Strict I&O Subjective Patient seen and examined at bedside. Sedated, intubated on mechanical ventilator. Overnight events reviewed. vital signs Vital Sign Date Time Temp Pulse Resp B/P (MAP) Pulse Ox O2 Delivery O2 Flow Rate FiO2 06/05/24 20:13 115/53 06/05/24 20:09 95 26 97 30 06/05/24 20:00 Mechanical Ventilator+ 06/05/24 18:00 99.1 210.4 Total Intake and Output 06/04/24 06/04/24 06/05/24 15:00 23:00 07:00 Intake Total 828.25 ml 848.00 ml 846.00 ml Output Total 900 ml 1150 ml Balance 828.25 ml -52.00 ml -304.00 ml medications Current Medications Medications Dose Ordered Sig/Amy Route Start Time Stop Time Status Last Admin Dose Admin Digoxin 0.125 mg DAILY PO 05/19/24 10:00 06/05/24 09:15 0.125 MG Spironolactone 25 mg DAILY PO 05/21/24 10:00 06/05/24 09:15 25 MG Apixaban 5 mg BID PO 05/30/24 10:00 06/05/24 21:32 5 MG Midazolam HCl 50 ml @ 1 mls/hr Q24H IV 05/26/24 22:00 06/05/24 18:56 3 MLS/HR Potassium Chloride 100 ml @ 50 mls/hr Q2H IV 05/27/24 17:15 05/28/24 01:14 UNV Amino Acids 0 ml @ 0 mls/hr PER PHARMACY IV 05/30/24 12:00 Diagnostic Test (Pha) 1 strip Q6HR 05/30/24 18:00 06/05/24 18:01 1 STRIP Insulin Human Regular FOLLOW SLIDING SCALE Q6HR SC 05/30/24 18:00 06/03/24 11:36 2 UNITS Dextrose 50 ml UD IV 05/30/24 12:15 Acetaminophen 650 mg Q6HP PRN PO 05/31/24 19:30 Norepinephrine Bitartrate 250 ml @ 3.75 mls/hr Q24H IV 06/04/24 10:30 06/05/24 18:53 11.25 MLS/HR Albumin Human 50 ml @ 100 mls/hr Q30MIN IV 06/04/24 17:00 06/07/24 17:29 06/04/24 19:26 100 MLS/HR Fentanyl Citrate 250 ml @ 2.5 mls/hr Q24H IV 06/05/24 00:00 06/05/24 09:18 15 MLS/HR Fat Emulsion Intravenous 150 ml/Sodium Chloride 20 meq/ Sodium Phosphate 60 meq/Magnesium Sulfate 20 meq/ Multivitamins 10 ml/Amino Acids/ Dextrose 1,535 ml @ 64 mls/hr Q24H IV 06/05/24 22:00 06/06/24 21:59 Dopamine HCl/ Dextrose 250 ml @ 16.425 mls/ hr [id number] IV 06/05/24 14:15 06/05/24 15:16 16.425 MLS/HR objective Gen.: Patient lying in bed in medical ICU. Sedated, intubated on mechanical ventilator. Head: Normocephalic, atraumatic. Eyes: PERRLA. Ears: Normal external anatomy. Throat: Endotracheal tube and orogastric tube in place. Neck: Supple, trachea midline. Chest: Transmitted breath sounds bilaterally. Decreased air entry bilaterally. No wheezing. Bibasilar crackles. Cardio vascular: Positive S1, positive S2. Regular rate and rhythm. Abdomen: Positive bowel sounds in all 4 quadrants. Soft, nontender, nondistended. : Olsen in place. Normal external genitalia. Rectal: Deferred Skin: Warm, dry. Intact. Extremities: 2+ radial pulses bilaterally. No lower extremity edema. Neuro: Sedated. laboratory and microbiology Laboratory Tests 06/05/24 04:56 Test 06/05/24 04:56 Range/Units Serum Glucose 103 74-106 mg/dL Assessment/Plan Impression: Acute hypoxic respiratory failure Mechanical ventilator Pleural effusion, right Atelectasis CHF exacerbation Pulmonary embolism Obesity with a BMI of 30.1 Events: Remains on vent support On assist control with respiratory rate of 22, tidal volume 400, PEEP of 8, FiO2 at 30%. Sedated on Versed, Fentanyl S/p left thoracentesis today - 950 mL's of joycelyn colored fluid were removed from left pleural space. Please see separate procedure note for details ABG reviewed, compensated CXR demonstrates Multifocal airspace disease. No pneumothorax. Devices in place. On pressors for hemodynamic support. Levophed 10 mcg/min Titrate to keep MAP above 65 mmHg/SBP above 90 mmHg. On Eliquis for PE TPN for nutritional support Monitor renal function Monitor electrolytes. Supplement as necessary. SBT - CPAP with PS 10, PEEP of 8 06/03/24 - S/p bronchoscopy - cleared mucous plugging from L6-L10, L1-L5 and R1- R3 06/03/24 - S/p right thoracentesis - 1700 mL of serosanguineous fluid removed from R pleural space. S/p bronchoscopy w/ RML BAL on 05/28/24 - Cleared bloody secretions from L1-L10 and R1-R10 S/p cardioversion on 05/27/24 Labs and imaging reviewed. Rest of plan as noted below. Plan: s/p intubation on mechanical ventilator Status post right thoracentesis with removal of 2200 mL ABG reviewed. Alkalemia due to contraction alkalosis. Hypoxemia with a PO2 of 42 mmHg. Patient was emergently intubated and placed on mechanical ventilation. Currently on assist control with respiratory rate of 22, tidal volume 400, PEEP of 8, FiO2 at 30%. Titrate FIO2 to keep O2 saturation above 92%. VAP bundle Daily ABG and CXR while intubated. Sedate for ventilatory synchrony On pressors for hemodynamic support. Titrate to keep MAP above 65 mmHg/SBP above 90 mmHg. Continue antibiotics. F/u cultures. Monitor renal function due to Acute kidney injury. Monitor electrolytes. Supplement as necessary. Monitor ins and outs Maintain euvolemia Cardiology recommendations appreciated. Nutritional support. Accu-Cheks, ISS. GI/DVT prophylaxis. Condition: Critical Prognosis: Poor given multiple comorbidities. Rest of plan per hospitalist and other consultants. A total of 35 minutes of critical care time was spent reviewing the patient record, examining the patient, making a diagnostic and therapeutic plan, discussing this plan with the medical personnel, following up on diagnostic studies and following the patient for clinical stability excluding any and all procedures. At least 50% of this time was spent in direct, [id number] contact. Thank you Dr. Conn for allowing me to participate in this patient's care. Further recommendations will depend on patient's clinical course. Please do not hesitate to contact me if you have any questions or concerns. This medical document was created using an electronic medical record system with [employer] dictation system. Although this document has been carefully reviewed, there may still be some phonetic and typographical errors. These areas are purely typographical due to imperfections of the software programs, and do not reflect any compromise in the patient's medical care. Dietary Evaluation Review Comments: 1. consider Renal Specific 70g protein restriction witn 2GNa, 3K, low Phos, if no diaylsis needed. 2. consider Renal Standard 2gn, 3K, low phosphate diet if Pt is on dialysis. 3. encourage and monitor po intake to meet 75% of his needs. Expected Outcomes/Goals: avoid uremic symptoms, gradual healed wounds. Plan discussed with: Other (CALEB Guerrero) Critical Care Time(min): 35 BOGDAN MANN MD Jun 05, 2024 22:11
[2024-06-05] MEDS: TPN PER PHARMACY IV NR (22:18)
--- NOTE | 2024-06-05 22:31 | DVH ---
CHEST RADIOGRAPH Indication: s/p left thoracentesis r/o pneumothorax Technique: Single frontal view of the chest was obtained COMPARISON: XY CHEST PORTABLE on DOS: 06/05/24, XY CHEST PORTABLE on DOS: 06/04/24, XY CHEST PORTABLE o n DOS: 06/03/24, XY CHEST PORTABLE on DOS: 06/03/24, XY CHEST PORTABLE on DOS: 06/02/24 FINDINGS: Lines and Tubes: Endotracheal tube terminates 6.5 cm above the fredo. Left-sided central venous cat heter with tip in the lower SVC. Stable enteric tube. Lungs: Multifocal lung opacity. Pleura: Improved left effusion which is now small. Small right effusion. No pneumothorax Cardiomediastinal contours: Unremarkable Bones: Unremarkable IMPRESSION: 1. Improved left effusion which is now small. No pneumothorax
[2024-06-06] VITALS (117 sets, daily range): BP systolic 96–144; BP diastolic 23–91; PULSE 80–109; RESP 13–51; TEMP 97.5–100.4; O2SAT 89–100
[2024-06-06 03:27] LABS: Body Fluid Polymorphonuclear 18 % (0-25)
[2024-06-06 03:29] LABS: Body Fluid Red Blood Cells 22583 CUMM (0-2000); Body Fluid White Blood Cells 1890 CUMM (0-200)
[2024-06-06 05:41] LABS: Anion Gap 2 (5-15); Chloride 107 mmol/L (98-107); Phosphorus 2.6 mg/dL (2.4-5.1); Potassium 3.9 mmol/L (3.5-5.1); Sodium 141 mmol/L (136-145)
--- NOTE | 2024-06-06 05:48 | DVH ---
CHEST RADIOGRAPH Indication: Intubated Technique: Single frontal view of the chest was obtained Comparison: XY CHEST XRAY 1 VIEW on DOS: 06/05/24 FINDINGS: Lines and Tubes: There is a left central venous catheter tip terminating in the superior vena cava. The endotracheal tube terminates 6.8 cm above the fredo. Lungs: Patchy bilateral opacities similar to prior study. Pleura: No effusion. No pneumothorax. Cardiomediastinal contours: Stable cardiovascular silhouette. Bones: No acute osseous abnormality. IMPRESSION: 1. No significant interval change in appearance of the lungs.
[2024-06-06 05:51] LABS: Alanine Aminotransferase 175 U/L (7-40); Albumin 2.4 g/dL (3.2-4.8); Alkaline Phosphatase 203 U/L (46-116); Aspartate Aminotransferase 338 U/L (13-40); Bilirubin, Total 2.7 mg/dL (0.2-1.0); Blood Urea Nitrogen 24 mg/dL (9-23); Calcium 8.6 mg/dL (8.7-10.4); Carbon Dioxide 32 mmol/L (20-31); Glucose 107 mg/dL (74-106); Total Protein 4.7 g/dL (5.7-8.2)
[2024-06-06 07:11] LABS: Basophils # (auto) 0 10 ^3/uL (0-0.2); Basophils % (auto) 0.4 % (0.0-2.0); Eosinophils # (auto) 0.1 10 ^3/uL (0-0.8); Eosinophils % (auto) 1.2 % (0.0-7.0); Hematocrit 33.8 % (41.0-53.0); Hemoglobin 10.9 g/dL (13.5-17.5); Lymphocytes # (auto) 0.3 10 ^3/uL (0.4-5.4); Lymphocytes % (auto) 6.4 % (10.0-50.0); Mean Corpuscular Hgb Conc. 32.4 g/dL (32.0-36.0); Mean Corpuscular Volume 83.2 fL (80.0-100.0); Monocytes # (auto) 0.2 10 ^3/uL (0-1.3); Monocytes % (auto) 5.3 % (0.0-12.0); Neutrophils # (auto) 3.7 10 ^3/uL (1.6-8.6); Neutrophils % (auto) 86.7 % (37.0-80.0); Nucleated Red Blood Cells % 0.1 %; Platelet Count (auto) 79 10^3/uL (140-450); Red Blood Cells 4.06 10^6/uL (4.5-5.90); Red Cell Distribution Width 17.2 % (11.8-14.3); White Blood Cell 4.3 10^3/uL (4.4-10.8)
--- NOTE | 2024-06-06 10:10 | DVHPN2 ---
Progress Note - Dictate Date Seen: Jun 06, 2024 Medical Necessity Reason Pt with a Central, PICC or Fol: Yes The following are medically ne: Olsen Catheter Reason for olsen catheter: Strict I&O Subjective PT WITH SS COMPLEX INCRESEING SOB HARVEY LE EDEMA HFrEF CHRONIC AND ACUTE NOW WITH HEMOPTYSIS TACHYCARDIA CTA LUNG C/W PE ACUTE vital signs Vital Sign Date Time Temp Pulse Resp B/P (MAP) Pulse Ox O2 Delivery O2 Flow Rate FiO2 06/06/24 09:45 98.8 91 24 114/54 (74) 99 209.8 107/40 (62) 06/06/24 09:38 30 06/06/24 09:35 Mechanical Ventilator+ Total Intake and Output 06/05/24 06/05/24 06/06/24 15:00 23:00 07:00 Intake Total 806.00 ml 958.375 ml 774.975 ml Output Total 1700 ml 2300 ml Balance 806.00 ml -741.625 ml -1525.025 ml medications Current Medications Medications Dose Ordered Sig/Amy Route Start Time Stop Time Status Last Admin Dose Admin Digoxin 0.125 mg DAILY PO 05/19/24 10:00 06/06/24 08:02 0.125 MG Spironolactone 25 mg DAILY PO 05/21/24 10:00 06/06/24 08:01 25 MG Apixaban 5 mg BID PO 05/30/24 10:00 06/06/24 08:01 5 MG Midazolam HCl 50 ml @ 1 mls/hr Q24H IV 05/26/24 22:00 06/05/24 18:56 3 MLS/HR Potassium Chloride 100 ml @ 50 mls/hr Q2H IV 05/27/24 17:15 05/28/24 01:14 UNV Amino Acids 0 ml @ 0 mls/hr PER PHARMACY IV 05/30/24 12:00 Diagnostic Test (Pha) 1 strip Q6HR 05/30/24 18:00 06/06/24 05:42 1 STRIP Insulin Human Regular FOLLOW SLIDING SCALE Q6HR SC 05/30/24 18:00 06/03/24 11:36 2 UNITS Dextrose 50 ml UD IV 05/30/24 12:15 Acetaminophen 650 mg Q6HP PRN PO 05/31/24 19:30 Norepinephrine Bitartrate 250 ml @ 3.75 mls/hr Q24H IV 06/04/24 10:30 06/05/24 18:53 11.25 MLS/HR Albumin Human 50 ml @ 100 mls/hr Q30MIN IV 06/04/24 17:00 06/07/24 17:29 06/04/24 19:26 100 MLS/HR Fentanyl Citrate 250 ml @ 2.5 mls/hr Q24H IV 06/05/24 00:00 06/06/24 02:24 7.5 MLS/HR Fat Emulsion Intravenous 150 ml/Sodium Chloride 20 meq/ Sodium Phosphate 60 meq/Magnesium Sulfate 20 meq/ Multivitamins 10 ml/Amino Acids/ Dextrose 1,535 ml @ 64 mls/hr Q24H IV 06/05/24 22:00 06/06/24 21:59 06/05/24 22:18 64 MLS/HR Dopamine HCl/ Dextrose 250 ml @ 16.425 mls/ hr [id number] IV 06/05/24 14:15 06/06/24 05:00 16.425 MLS/HR objective PUL DIFF RHONCHI JVD ANGLE OF THE JAW CV RR PMI DIFFUSE EXT 3+ EDEMA laboratory and microbiology Laboratory Tests 06/06/24 04:50 Test 06/06/24 04:50 Range/Units Serum Glucose 107 H 74-106 mg/dL Problem List SS COMPLEX INCRESEING SOB HARVEY LE EDEMA HFrEF CHRONIC AND ACUTE EF < 20% NOW WITH HEMOPTYSIS TACHYCARDIA CTA LUNG C/W PE 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 Large filling defect right pulmonary artery consistent with pulmonary embolus. No film findings of pulmonary artery hypertension. No pulmonary emboli noted on the left. 2. Findings are also suggestive of right heart strain. 3. Large right pleural effusion. HEPARIN DRIP\ LASIX DRIP WILL START ORAL ANTICOAGULATION IN 48 HOURS ABX LE ARTERIAL DOPPLER NO SIGNIFICANT DISEASE FOR LIMB RISK DC HEPARIN START ELIQUIS S/P CT HEAD CURRENTLY ON BiPAP IMPROVING RESP STATUS 7.32/59/69 TITRATE BIPAP THORACENTESIS ULTRASOUND GUIDED MRI OF ABD S/P THORACENTESIS 2200 CC DRAINED CXR BILATERAL INFILTRATE PROMINENT MEDIASTINUM CARDIOMEGALY HYPOKALEMIA BEING CORRECTED A FLUTTER S/P CARDIOVERSION SINUS RHYTHM TITRATE OFF LEVOPHED USE ALBUMIN FOR PRESSURE SUPORT DC LASIX DRIP START D5 1/4 NS AT 125 CC/HR BMP/ BNP DAILY cont volume replacement contraction alkalosis leukocytosis improved monitor h/h HYPERNATREMIA IMPROVING DIAMOX X 1 DOSE HYPERNATREMIA CORRECTED DC IV FLUID CONT TPN INCREASE VENT SETTING TO AC 22 EPISODE OF [place] CORRECT ACIDOSIS MAG SO4 2 G TITRATE OFF LEVOPHED DIAMOX TREAT METABOLIC ALKALOSIS RESP ACIDOSIS START TITRATING OFF SEDATION Dietary Evaluation Review Comments: 1. consider Renal Specific 70g protein restriction witn 2GNa, 3K, low Phos, if no diaylsis needed. 2. consider Renal Standard 2gn, 3K, low phosphate diet if Pt is on dialysis. 3. encourage and monitor po intake to meet 75% of his needs. Expected Outcomes/Goals: avoid uremic symptoms, gradual healed wounds. Plan discussed with: Patient, Other Critical Care Time(min): 35 ISSAC SHAH MD Jun 06, 2024 10:10
[2024-06-06 12:18] LABS: Base Excess 3.2 mmol/L (-2.0-3.0)
[2024-06-06] MEDS: ACETAMINOPHEN 325 MG TAB PO PRN (15:53)
[2024-06-06] MEDS: fentaNYL Drip 2500mCg/250mlNS 250 ML IV SCH (16:00)
[2024-06-06] MEDS: TPN PER PHARMACY IV NR (21:46)
--- NOTE | 2024-06-06 23:07 | DVHPN2 ---
Progress Note - Dictate Date Seen: Jun 06, 2024 Medical Necessity Reason Pt with a Central, PICC or Fol: Yes The following are medically ne: Olsen Catheter Reason for olsen catheter: Strict I&O Subjective Patient seen and examined at bedside. intubated on mechanical ventilator. Overnight events reviewed. vital signs Vital Sign Date Time Temp Pulse Resp B/P (MAP) Pulse Ox O2 Delivery O2 Flow Rate FiO2 06/06/24 22:21 91 25 118/42 (67) 100 30 06/06/24 22:00 Mechanical Ventilator+ 06/06/24 22:00 97.9 208.2 Total Intake and Output 06/05/24 06/05/24 06/06/24 14:59 22:59 06:59 Intake Total 806.00 ml 967.200 ml 780.225 ml Output Total 1700 ml 2300 ml Balance 806.00 ml -732.800 ml -1519.775 ml medications Current Medications Medications Dose Ordered Sig/Amy Route Start Time Stop Time Status Last Admin Dose Admin Digoxin 0.125 mg DAILY PO 05/19/24 10:00 06/06/24 08:02 0.125 MG Spironolactone 25 mg DAILY PO 05/21/24 10:00 06/06/24 08:01 25 MG Apixaban 5 mg BID PO 05/30/24 10:00 06/06/24 21:45 5 MG Potassium Chloride 100 ml @ 50 mls/hr Q2H IV 05/27/24 17:15 05/28/24 01:14 UNV Amino Acids 0 ml @ 0 mls/hr PER PHARMACY IV 05/30/24 12:00 Diagnostic Test (Pha) 1 strip Q6HR 05/30/24 18:00 06/06/24 16:02 1 STRIP Insulin Human Regular FOLLOW SLIDING SCALE Q6HR SC 05/30/24 18:00 06/03/24 11:36 2 UNITS Dextrose 50 ml UD IV 05/30/24 12:15 Acetaminophen 650 mg Q6HP PRN PO 05/31/24 19:30 06/06/24 15:53 650 MG Norepinephrine Bitartrate 250 ml @ 3.75 mls/hr Q24H IV 06/04/24 10:30 06/05/24 18:53 11.25 MLS/HR Albumin Human 50 ml @ 100 mls/hr Q30MIN IV 06/04/24 17:00 06/07/24 17:29 06/04/24 19:26 100 MLS/HR Dopamine HCl/ Dextrose 250 ml @ 16.425 mls/ hr [id number] IV 06/05/24 14:15 06/06/24 20:58 16.425 MLS/HR Fat Emulsion Intravenous 100 ml/Sodium Phosphate 60 meq/ Potassium Phosphate 20 meq/ Magnesium Sulfate 24 meq/ Multivitamins 10 ml/Amino Acids/ Dextrose 1,435.5455 ml @ 60 mls/hr [id number] IV 06/06/24 22:00 06/07/24 21:59 06/06/24 21:46 60 MLS/HR Fentanyl Citrate 250 ml @ 2.5 mls/hr Q24H IV 06/06/24 12:45 06/06/24 16:00 2.5 MLS/HR Dexmedetomidine HCl 400 mcg/ Dextrose 100 ml @ 4.21 mls/hr [id number] IV 06/06/24 12:45 objective Gen.: Patient lying in bed in medical ICU. Intubated on mechanical ventilator. Head: Normocephalic, atraumatic. Eyes: PERRLA. Ears: Normal external anatomy. Throat: Endotracheal tube and orogastric tube in place. Neck: Supple, trachea midline. Chest: Transmitted breath sounds bilaterally. Decreased air entry bilaterally. No wheezing. Bibasilar crackles. Cardio vascular: Positive S1, positive S2. Regular rate and rhythm. Abdomen: Positive bowel sounds in all 4 quadrants. Soft, nontender, nondistended. : Olsen in place. Normal external genitalia. Rectal: Deferred Skin: Warm, dry. Intact. Extremities: 2+ radial pulses bilaterally. No lower extremity edema. Neuro: Off sedation. laboratory and microbiology Laboratory Tests 06/06/24 04:50 Test 06/06/24 04:50 Range/Units Serum Glucose 107 H 74-106 mg/dL Assessment/Plan Impression: Acute hypoxic respiratory failure Mechanical ventilator Pleural effusion, right Atelectasis CHF exacerbation Pulmonary embolism Obesity with a BMI of 30.1 Events: CPAP with PS 10, PEEP of 8, FIO2 30% Off sedation. Awaiting for mentation to improve for extubation. Vent settings - assist control with respiratory rate of 22, tidal volume 400, PEEP of 8, FiO2 at 30%. ABG reviewed, compensated CXR demonstrates patchy bilateral opacities. No pneumothorax. Devices in place. On pressors for hemodynamic support Dopamine 5 mcg/min Titrate to keep MAP above 65 mmHg/SBP above 90 mmHg. Off Levophed On Eliquis for PE TPN for nutritional support Monitor renal function Monitor electrolytes. Supplement as necessary. S/p left thoracentesis on 06/05/24 - 950 mL's of joycelyn colored fluid removed from left pleural space. Please see separate procedure note for details 06/03/24 - S/p bronchoscopy - cleared mucous plugging from L6-L10, L1-L5 and R1- R3 06/03/24 - S/p right thoracentesis - 1700 mL of serosanguineous fluid removed from R pleural space. S/p bronchoscopy w/ RML BAL on 05/28/24 - Cleared bloody secretions from L1-L10 and R1-R10 S/p cardioversion on 05/27/24 Labs and imaging reviewed. Rest of plan as noted below. Plan: s/p intubation on mechanical ventilator Status post right thoracentesis with removal of 2200 mL ABG reviewed. Alkalemia due to contraction alkalosis. Hypoxemia with a PO2 of 42 mmHg. Patient was emergently intubated and placed on mechanical ventilation. Currently on assist control with respiratory rate of 22, tidal volume 400, PEEP of 8, FiO2 at 30%. Titrate FIO2 to keep O2 saturation above 92%. VAP bundle Daily ABG and CXR while intubated. Sedate for ventilatory synchrony On pressors for hemodynamic support. Titrate to keep MAP above 65 mmHg/SBP above 90 mmHg. Continue antibiotics. F/u cultures. Monitor renal function due to Acute kidney injury. Monitor electrolytes. Supplement as necessary. Monitor ins and outs Maintain euvolemia Cardiology recommendations appreciated. Nutritional support. Accu-Cheks, ISS. GI/DVT prophylaxis. Condition: Critical Prognosis: Poor given multiple comorbidities. Rest of plan per hospitalist and other consultants. A total of 35 minutes of critical care time was spent reviewing the patient record, examining the patient, making a diagnostic and therapeutic plan, discussing this plan with the medical personnel, following up on diagnostic studies and following the patient for clinical stability excluding any and all procedures. At least 50% of this time was spent in direct, [id number] contact. Thank you Dr. Conn for allowing me to participate in this patient's care. Further recommendations will depend on patient's clinical course. Please do not hesitate to contact me if you have any questions or concerns. This medical document was created using an electronic medical record system with [facility] system. Although this document has been carefully reviewed, there may still be some phonetic and typographical errors. These areas are purely typographical due to imperfections of the software programs, and do not reflect any compromise in the patient's medical care. Dietary Evaluation Review Comments: 1. consider Renal Specific 70g protein restriction witn 2GNa, 3K, low Phos, if no diaylsis needed. 2. consider Renal Standard 2gn, 3K, low phosphate diet if Pt is on dialysis. 3. encourage and monitor po intake to meet 75% of his needs. Expected Outcomes/Goals: avoid uremic symptoms, gradual healed wounds. Plan discussed with: Other (CALEB Watters) Critical Care Time(min): 35 BOGDAN MANN MD Jun 06, 2024 23:07
[2024-06-07] VITALS (107 sets, daily range): BP systolic 91–164; BP diastolic 37–74; PULSE 76–112; RESP 12–29; TEMP 98.2–100; O2SAT 92–100
[2024-06-07 05:24] LABS: Basophils # (auto) 0 10 ^3/uL (0-0.2); Eosinophils # (auto) 0 10 ^3/uL (0-0.8); Lymphocytes # (auto) 0.4 10 ^3/uL (0.4-5.4)
[2024-06-07 05:26] LABS: Basophils % (auto) 0.4 % (0.0-2.0); Eosinophils % (auto) 0.7 % (0.0-7.0); Hematocrit 35.4 % (41.0-53.0); Hemoglobin 11.7 g/dL (13.5-17.5); Mean Corpuscular Hemoglobin 27.5 pg (28.0-32.0); Mean Corpuscular Hgb Conc. 33.1 g/dL (32.0-36.0); Mean Corpuscular Volume 83.2 fL (80.0-100.0); Monocytes # (auto) 0.2 10 ^3/uL (0-1.3); Neutrophils # (auto) 4.7 10 ^3/uL (1.6-8.6); Neutrophils % (auto) 87.9 % (37.0-80.0); Nucleated Red Blood Cells % 0.1 %; Platelet Count (auto) 87 10^3/uL (140-450); Red Blood Cells 4.26 10^6/uL (4.5-5.90); Red Cell Distribution Width 17.2 % (11.8-14.3); White Blood Cell 5.4 10^3/uL (4.4-10.8)
[2024-06-07 06:07] LABS: Anion Gap 4 (5-15); BUN/Creatinine Ratio 83.3 (10.0-20.0); Calcium 9.1 mg/dL (8.7-10.4); Carbon Dioxide 29 mmol/L (20-31); Potassium 3.9 mmol/L (3.5-5.1); Sodium 141 mmol/L (136-145)
[2024-06-07 06:08] LABS: Phosphorus 3.1 mg/dL (2.4-5.1)
--- NOTE | 2024-06-07 06:19 | DVH ---
CHEST RADIOGRAPH Indication: INTUBATED Technique: Single frontal view of the chest was obtained Comparison: XY CHEST PORTABLE on DOS: 06/06/24, XY CHEST XRAY 1 VIEW on DOS: 06/05/24, XY CHEST PORTABL E on DOS: 06/05/24, XY CHEST PORTABLE on DOS: 06/04/24, XY CHEST PORTABLE on DOS: 06/03/24, XY CHEST POR TABLE on DOS: 06/06/24 FINDINGS: Lines and Tubes: There is a left central venous catheter tip terminating in the superior vena cava. The endotracheal tube terminates 6.8 cm above the fredo. Lungs: Patchy bilateral opacities similar to prior study. Pleura: No effusion. No pneumothorax. Cardiomediastinal contours: Stable cardiovascular silhouette. Bones: No acute osseous abnormality. IMPRESSION: 1. No significant interval change in appearance of the lungs.
[2024-06-07 06:26] LABS: Alanine Aminotransferase 542 U/L (7-40); Alkaline Phosphatase 310 U/L (46-116); Bilirubin, Total 4.2 mg/dL (0.2-1.0); Blood Urea Nitrogen 30 mg/dL (9-23); Chloride 108 mmol/L (98-107); Glucose 107 mg/dL (74-106)
[2024-06-07 06:28] LABS: Albumin 2.5 g/dL (3.2-4.8)
[2024-06-07 07:11] LABS: Base Excess 1.3 mmol/L (-2.0-3.0)
[2024-06-07 11:35] LABS: Base Excess 2.7 mmol/L (-2.0-3.0)
--- NOTE | 2024-06-07 14:06 | DVHPN2 ---
Progress Note - Dictate Date Seen: Jun 07, 2024 Medical Necessity Reason Pt with a Central, PICC or Fol: Yes The following are medically ne: Olsen Catheter Reason for olsen catheter: Strict I&O Subjective PT WITH SS COMPLEX INCRESEING SOB HARVEY LE EDEMA HFrEF CHRONIC AND ACUTE NOW WITH HEMOPTYSIS TACHYCARDIA CTA LUNG C/W PE ACUTE vital signs Vital Sign Date Time Temp Pulse Resp B/P (MAP) Pulse Ox O2 Delivery O2 Flow Rate FiO2 06/07/24 13:45 100.0 99 25 135/54 (81) 99 212.0 125/48 (73) 06/07/24 12:00 Mechanical Ventilator+ 30 30 Total Intake and Output 06/06/24 06/06/24 06/07/24 15:00 23:00 07:00 Intake Total 655.900 ml 675.400 ml 1106.400 ml Output Total 2000 ml 1100 ml Balance 655.900 ml -1324.600 ml 6.400 ml medications Current Medications Medications Dose Ordered Sig/Amy Route Start Time Stop Time Status Last Admin Dose Admin Digoxin 0.125 mg DAILY PO 05/19/24 10:00 06/07/24 09:49 0.125 MG Spironolactone 25 mg DAILY PO 05/21/24 10:00 06/07/24 09:49 25 MG Apixaban 5 mg BID PO 05/30/24 10:00 06/07/24 09:49 5 MG Potassium Chloride 100 ml @ 50 mls/hr Q2H IV 05/27/24 17:15 05/28/24 01:14 UNV Amino Acids 0 ml @ 0 mls/hr PER PHARMACY IV 05/30/24 12:00 Diagnostic Test (Pha) 1 strip Q6HR 05/30/24 18:00 06/07/24 11:14 1 STRIP Insulin Human Regular FOLLOW SLIDING SCALE Q6HR SC 05/30/24 18:00 06/03/24 11:36 2 UNITS Dextrose 50 ml UD IV 05/30/24 12:15 Acetaminophen 650 mg Q6HP PRN PO 05/31/24 19:30 06/06/24 15:53 650 MG Norepinephrine Bitartrate 250 ml @ 3.75 mls/hr Q24H IV 06/04/24 10:30 06/05/24 18:53 11.25 MLS/HR Albumin Human 50 ml @ 100 mls/hr Q30MIN IV 06/04/24 17:00 06/07/24 17:29 06/04/24 19:26 100 MLS/HR Dopamine HCl/ Dextrose 250 ml @ 16.425 mls/ hr [id number] IV 06/05/24 14:15 06/07/24 12:04 16.425 MLS/HR Fat Emulsion Intravenous 100 ml/Sodium Phosphate 60 meq/ Potassium Phosphate 20 meq/ Magnesium Sulfate 24 meq/ Multivitamins 10 ml/Amino Acids/ Dextrose 1,435.5455 ml @ 60 mls/hr [id number] IV 06/06/24 22:00 06/07/24 21:59 06/06/24 21:46 60 MLS/HR Fentanyl Citrate 250 ml @ 2.5 mls/hr Q24H IV 06/06/24 12:45 06/06/24 16:00 2.5 MLS/HR Dexmedetomidine HCl 400 mcg/ Dextrose 100 ml @ 4.21 mls/hr [id number] IV 06/06/24 12:45 06/07/24 08:18 4.21 MLS/HR Fat Emulsion Intravenous 100 ml/Sodium Phosphate 60 meq/ Potassium Phosphate 20 meq/ Magnesium Sulfate 26 meq/ Multivitamins 10 ml/Amino Acids/ Dextrose 1,436.0455 ml @ 60 mls/hr [id number] IV 06/07/24 22:00 06/08/24 21:59 objective PUL DIFF RHONCHI JVD ANGLE OF THE JAW CV RR PMI DIFFUSE EXT 3+ E[facility] laboratory and microbiology Laboratory Tests 06/07/24 04:46 Test 06/07/24 04:46 Range/Units Serum Glucose 107 H 74-106 mg/dL Problem List SS COMPLEX INCRESEING SOB HARVEY LE EDEMA HFrEF CHRONIC AND ACUTE EF < 20% NOW WITH HEMOPTYSIS TACHYCARDIA CTA LUNG C/W PE 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 Large filling defect right pulmonary artery consistent with pulmonary embolus. No film findings of pulmonary artery hypertension. No pulmonary emboli noted on the left. 2. Findings are also suggestive of right heart strain. 3. Large right pleural effusion. HEPARIN DRIP\ LASIX DRIP WILL START ORAL ANTICOAGULATION IN 48 HOURS ABX LE ARTERIAL DOPPLER NO SIGNIFICANT DISEASE FOR LIMB RISK DC HEPARIN START ELIQUIS S/P CT HEAD CURRENTLY ON BiPAP IMPROVING RESP STATUS 7.32/59/69 TITRATE BIPAP THORACENTESIS ULTRASOUND GUIDED MRI OF ABD S/P THORACENTESIS 2200 CC DRAINED CXR BILATERAL INFILTRATE PROMINENT MEDIASTINUM CARDIOMEGALY HYPOKALEMIA BEING CORRECTED A FLUTTER S/P CARDIOVERSION SINUS RHYTHM TITRATE OFF LEVOPHED USE ALBUMIN FOR PRESSURE SUPORT DC LASIX DRIP START D5 1/4 NS AT 125 CC/HR BMP/ BNP DAILY cont volume replacement contraction alkalosis leukocytosis improved monitor h/h HYPERNATREMIA IMPROVING DIAMOX X 1 DOSE HYPERNATREMIA CORRECTED DC IV FLUID CONT TPN INCREASE VENT SETTING TO AC 22 EPISODE OF [place] CORRECT ACIDOSIS MAG SO4 2 G TITRATE OFF LEVOPHED DIAMOX TREAT METABOLIC ALKALOSIS RESP ACIDOSIS START TITRATING OFF SEDATION IMPROVED RESP PARAMETERS LIVER ENZYMES STILL ELEVATED Dietary Evaluation Review Comments: 1. consider Renal Specific 70g protein restriction witn 2GNa, 3K, low Phos, if no diaylsis needed. 2. consider Renal Standard 2gn, 3K, low phosphate diet if Pt is on dialysis. 3. encourage and monitor po intake to meet 75% of his needs. Expected Outcomes/Goals: avoid uremic symptoms, gradual healed wounds. Plan discussed with: Patient Critical Care Time(min): 35 ISSAC SHAH MD Jun 07, 2024 14:06
--- NOTE | 2024-06-07 21:51 | DVHPN2 ---
Progress Note - Dictate Date Seen: Jun 07, 2024 Medical Necessity Reason Pt with a Central, PICC or Fol: Yes The following are medically ne: Olsen Catheter Reason for olsen catheter: Strict I&O Subjective Patient seen and examined at bedside. intubated on mechanical ventilator. Overnight events reviewed. vital signs Vital Sign Date Time Temp Pulse Resp B/P (MAP) Pulse Ox O2 Delivery O2 Flow Rate FiO2 06/07/24 20:26 89 24 101/42 (61) 99 30 06/07/24 19:00 98.6 209.5 06/07/24 18:00 Mechanical Ventilator+ Total Intake and Output 06/06/24 06/06/24 06/07/24 14:59 22:59 06:59 Intake Total 662.150 ml 671.900 ml 1038.900 ml Output Total 2000 ml 1100 ml Balance 662.150 ml -1328.100 ml -61.100 ml medications Current Medications Medications Dose Ordered Sig/Amy Route Start Time Stop Time Status Last Admin Dose Admin Digoxin 0.125 mg DAILY PO 05/19/24 10:00 06/07/24 09:49 0.125 MG Spironolactone 25 mg DAILY PO 05/21/24 10:00 06/07/24 09:49 25 MG Apixaban 5 mg BID PO 05/30/24 10:00 06/07/24 09:49 5 MG Potassium Chloride 100 ml @ 50 mls/hr Q2H IV 05/27/24 17:15 05/28/24 01:14 UNV Amino Acids 0 ml @ 0 mls/hr PER PHARMACY IV 05/30/24 12:00 Diagnostic Test (Pha) 1 strip Q6HR 05/30/24 18:00 06/07/24 17:40 1 STRIP Insulin Human Regular FOLLOW SLIDING SCALE Q6HR SC 05/30/24 18:00 06/03/24 11:36 2 UNITS Dextrose 50 ml UD IV 05/30/24 12:15 Acetaminophen 650 mg Q6HP PRN PO 05/31/24 19:30 06/06/24 15:53 650 MG Norepinephrine Bitartrate 250 ml @ 3.75 mls/hr Q24H IV 06/04/24 10:30 06/05/24 18:53 11.25 MLS/HR Dopamine HCl/ Dextrose 250 ml @ 16.425 mls/ hr [id number] IV 06/05/24 14:15 06/07/24 12:04 16.425 MLS/HR Fat Emulsion Intravenous 100 ml/Sodium Phosphate 60 meq/ Potassium Phosphate 20 meq/ Magnesium Sulfate 24 meq/ Multivitamins 10 ml/Amino Acids/ Dextrose 1,435.5455 ml @ 60 mls/hr [id number] IV 06/06/24 22:00 06/07/24 21:59 06/06/24 21:46 60 MLS/HR Fentanyl Citrate 250 ml @ 2.5 mls/hr Q24H IV 06/06/24 12:45 06/06/24 16:00 2.5 MLS/HR Dexmedetomidine HCl 400 mcg/ Dextrose 100 ml @ 4.21 mls/hr [id number] IV 06/06/24 12:45 06/07/24 08:18 4.21 MLS/HR Fat Emulsion Intravenous 100 ml/Sodium Phosphate 60 meq/ Potassium Phosphate 20 meq/ Magnesium Sulfate 26 meq/ Multivitamins 10 ml/Amino Acids/ Dextrose 1,436.0455 ml @ 60 mls/hr [id number] IV 06/07/24 22:00 06/08/24 21:59 objective Gen.: Patient lying in bed in medical ICU. Intubated on mechanical ventilator. Head: Normocephalic, atraumatic. Eyes: PERRLA. Ears: Normal external anatomy. Throat: Endotracheal tube and orogastric tube in place. Neck: Supple, trachea midline. Chest: Transmitted breath sounds bilaterally. Decreased air entry bilaterally. No wheezing. Bibasilar crackles. Cardio vascular: Positive S1, positive S2. Regular rate and rhythm. Abdomen: Positive bowel sounds in all 4 quadrants. Soft, nontender, nondistended. : Olsen in place. Normal external genitalia. Rectal: Deferred Skin: Warm, dry. Intact. Extremities: 2+ radial pulses bilaterally. No lower extremity edema. Neuro: Off sedation. laboratory and microbiology Laboratory Tests 06/07/24 04:46 Test 06/07/24 04:46 Range/Units Serum Glucose 107 H 74-106 mg/dL Assessment/Plan Impression: Acute hypoxic respiratory failure Mechanical ventilator Pleural effusion, right Atelectasis CHF exacerbation Pulmonary embolism Obesity with a BMI of 30.1 Events: Remains on vent support On assist control with respiratory rate of 22, tidal volume 400, PEEP of 8, FiO2 at 30%. ABG reviewed, notable for alkalemia CXR demonstrates patchy bilateral opacities, similar to prior. No pneumothorax. Devices in place. On pressors for hemodynamic support Dopamine 5 mcg/min Titrate to keep MAP above 65 mmHg/SBP above 90 mmHg. On Eliquis for PE TPN for nutritional support Monitor renal function Monitor electrolytes. Supplement as necessary. Patient tolerated CPAP. Awaiting for mentation to improve CPAP in the AM. OK to use Precedex if necessary 06/05/24 - S/p left thoracentesis on 950 mL's of joycelyn colored fluid removed from left pleural space. 06/03/24 - S/p bronchoscopy - cleared mucous plugging from L6-L10, L1-L5 and R1- R3 06/03/24 - S/p right thoracentesis - 1700 mL of serosanguineous fluid removed from R pleural space. S/p bronchoscopy w/ RML BAL on 05/28/24 - Cleared bloody secretions from L1-L10 and R1-R10 S/p cardioversion on 05/27/24 Labs and imaging reviewed. Rest of plan as noted below. Plan: s/p intubation on mechanical ventilator Status post right thoracentesis with removal of 2200 mL ABG reviewed. Alkalemia due to contraction alkalosis. Hypoxemia with a PO2 of 42 mmHg. Patient was emergently intubated and placed on mechanical ventilation. Currently on assist control with respiratory rate of 22, tidal volume 400, PEEP of 8, FiO2 at 30%. Titrate FIO2 to keep O2 saturation above 92%. VAP bundle Daily ABG and CXR while intubated. Sedate for ventilatory synchrony On pressors for hemodynamic support. Titrate to keep MAP above 65 mmHg/SBP above 90 mmHg. Completed antibiotics. F/u cultures. Pleural fluid cultures showed no growth Monitor renal function due to Acute kidney injury. Monitor electrolytes. Supplement as necessary. Monitor ins and outs Maintain euvolemia Cardiology recommendations appreciated. Nutritional support. Accu-Cheks, ISS. GI/DVT prophylaxis. Condition: Critical Prognosis: Poor given multiple comorbidities. Rest of plan per hospitalist and other consultants. A total of 35 minutes of critical care time was spent reviewing the patient record, examining the patient, making a diagnostic and therapeutic plan, discussing this plan with the medical personnel, following up on diagnostic studies and following the patient for clinical stability excluding any and all procedures. At least 50% of this time was spent in direct, [id number] contact. Thank you Dr. Conn for allowing me to participate in this patient's care. Further recommendations will depend on patient's clinical course. Please do not hesitate to contact me if you have any questions or concerns. This medical document was created using an electronic medical record system with [employer] dictation system. Although this document has been carefully reviewed, there may still be some phonetic and typographical errors. These areas are purely typographical due to imperfections of the software programs, and do not reflect any compromise in the patient's medical care. Dietary Evaluation Review Comments: 1. consider Renal Specific 70g protein restriction witn 2GNa, 3K, low Phos, if no diaylsis needed. 2. consider Renal Standard 2gn, 3K, low phosphate diet if Pt is on dialysis. 3. encourage and monitor po intake to meet 75% of his needs. Expected Outcomes/Goals: avoid uremic symptoms, gradual healed wounds. Plan discussed with: Other (CALEB Carpio) Critical Care Time(min): 35 BOGDAN MANN MD Jun 07, 2024 21:51
[2024-06-07] MEDS: POTASSIUM PHOSPHATE IV NR (22:22)
[2024-06-07] MEDS: [UNRECOGNIZED DRUG - OTHER] IV NR (22:22)
[2024-06-07] MEDS: FAT EMULSION IV NR (22:22)
[2024-06-07] MEDS: SODIUM PHOSPHATES IV NR (22:22)
[2024-06-08] VITALS (106 sets, daily range): BP systolic 59–176; BP diastolic 19–108; PULSE 74–140; RESP 13–35; TEMP 99–100.2; O2SAT 95–100
[2024-06-08 04:39] LABS: Anion Gap 4 (5-15); BUN/Creatinine Ratio 79.5 (10.0-20.0); Carbon Dioxide 30 mmol/L (20-31); Magnesium 2.1 mg/dL (1.6-2.6); Potassium 3.6 mmol/L (3.5-5.1); Sodium 143 mmol/L (136-145)
[2024-06-08 04:40] LABS: Phosphorus 3.5 mg/dL (2.4-5.1)
[2024-06-08 04:42] LABS: Alanine Aminotransferase 463 U/L (7-40); Albumin 2.5 g/dL (3.2-4.8); Alkaline Phosphatase 308 U/L (46-116); Aspartate Aminotransferase 662 U/L (13-40); Bilirubin, Total 4.9 mg/dL (0.2-1.0); Blood Urea Nitrogen 31 mg/dL (9-23); Chloride 109 mmol/L (98-107); Glucose 107 mg/dL (74-106); Total Protein 5.1 g/dL (5.7-8.2)
--- NOTE | 2024-06-08 05:42 | DVH ---
CHEST RADIOGRAPH Indication: intubated Technique: Single frontal view of the chest was obtained COMPARISON: XY CHEST PORTABLE on DOS: 06/07/24, XY CHEST PORTABLE on DOS: 06/06/24, XY CHEST XRAY 1 VIE W on DOS: 06/05/24, XY CHEST PORTABLE on DOS: 06/05/24, XY CHEST PORTABLE on DOS: 06/04/24 FINDINGS: Lines and Tubes: Endotracheal tube and enteric catheter in satisfactory position. Left central venous catheter in satisfactory position. Lungs: Multifocal airspace disease. Pleura: No effusion. No pneumothorax. Cardiomediastinal contours: Unremarkable Bones: Unremarkable IMPRESSION: Lines and tubes in satisfactory position. No significant interval change.
[2024-06-08 06:38] LABS: Basophils # (auto) 0 10 ^3/uL (0-0.2); Eosinophils # (auto) 0 10 ^3/uL (0-0.8); Hemoglobin 11.6 g/dL (13.5-17.5); Lymphocytes # (auto) 0.5 10 ^3/uL (0.4-5.4); Monocytes # (auto) 0.3 10 ^3/uL (0-1.3); Neutrophils # (auto) 5.3 10 ^3/uL (1.6-8.6); Nucleated Red Blood Cells % 0.1 %; White Blood Cell 6.2 10^3/uL (4.4-10.8)
[2024-06-08 06:42] LABS: Basophils % (auto) 0.5 % (0.0-2.0); Eosinophils % (auto) 0.5 % (0.0-7.0); Hematocrit 35.5 % (41.0-53.0); Lymphocytes % (auto) 8.7 % (10.0-50.0); Mean Corpuscular Hemoglobin 27.3 pg (28.0-32.0); Mean Corpuscular Hgb Conc. 32.7 g/dL (32.0-36.0); Mean Corpuscular Volume 83.5 fL (80.0-100.0); Monocytes % (auto) 4.6 % (0.0-12.0); Neutrophils % (auto) 85.7 % (37.0-80.0); Platelet Count (auto) 104 10^3/uL (140-450); Red Blood Cells 4.25 10^6/uL (4.5-5.90); Red Cell Distribution Width 17.6 % (11.8-14.3)
[2024-06-08 07:35] LABS: Base Excess 0.7 mmol/L (-2.0-3.0)
[2024-06-08 10:41] LABS: Base Excess 2.1 mmol/L (-2.0-3.0)
[2024-06-08] MEDS: SPIRONOLACTONE 25 MG TAB GT SCH (11:39)
[2024-06-08] MEDS: MIDAZOLAM DRIP 50 mg/50mL 50 ML IV SCH (20:30)
[2024-06-08] MEDS: MIDAZOLAM DRIP 50 mg/50mL 50 ML IV ONE (20:30)
[2024-06-08] MEDS: TPN PER PHARMACY IV NR (21:54)
--- NOTE | 2024-06-08 22:57 | DVHPN2 ---
Progress Note - Dictate Date Seen: Jun 08, 2024 Medical Necessity Reason Pt with a Central, PICC or Fol: Yes The following are medically ne: Olsen Catheter Reason for olsen catheter: Strict I&O Subjective Patient seen and examined at bedside. intubated on mechanical ventilator. Overnight events reviewed. vital signs Vital Sign Date Time Temp Pulse Resp B/P (MAP) Pulse Ox O2 Delivery O2 Flow Rate FiO2 06/08/24 21:54 82 22 92/57 (69) 100 30 06/08/24 19:00 99.3 210.7 06/08/24 18:00 Mechanical Ventilator+ Total Intake and Output 06/07/24 06/07/24 06/08/24 15:00 23:00 07:00 Intake Total 696.525 ml 406.530 ml 769.835 ml Output Total 1850 ml 1050 ml Balance 696.525 ml -1443.470 ml -280.165 ml medications Current Medications Medications Dose Ordered Sig/Amy Route Start Time Stop Time Status Last Admin Dose Admin Digoxin 0.125 mg DAILY PO 05/19/24 10:00 06/08/24 10:28 0.125 MG Apixaban 5 mg BID PO 05/30/24 10:00 06/08/24 21:51 5 MG Potassium Chloride 100 ml @ 50 mls/hr Q2H IV 05/27/24 17:15 05/28/24 01:14 UNV Amino Acids 0 ml @ 0 mls/hr PER PHARMACY IV 05/30/24 12:00 Diagnostic Test (Pha) 1 strip Q6HR 05/30/24 18:00 06/08/24 18:53 1 STRIP Insulin Human Regular FOLLOW SLIDING SCALE Q6HR SC 05/30/24 18:00 06/03/24 11:36 2 UNITS Dextrose 50 ml UD IV 05/30/24 12:15 Acetaminophen 650 mg Q6HP PRN PO 05/31/24 19:30 06/06/24 15:53 650 MG Norepinephrine Bitartrate 250 ml @ 3.75 mls/hr Q24H IV 06/04/24 10:30 06/08/24 00:25 3.75 MLS/HR Fentanyl Citrate 250 ml @ 2.5 mls/hr Q24H IV 06/06/24 12:45 06/08/24 17:03 12.5 MLS/HR Dexmedetomidine HCl 400 mcg/ Dextrose 100 ml @ 4.21 mls/hr [id number] IV 06/06/24 12:45 06/08/24 00:17 4.21 MLS/HR Spironolactone 25 mg DAILY GT 06/08/24 11:00 06/08/24 11:39 25 MG Fat Emulsion Intravenous 100 ml/Potassium Phosphate 44 meq/ Magnesium Sulfate 26 meq/ Multivitamins 10 ml/Amino Acids/ Dextrose 1,476.5 ml @ 61 mls/hr [id number] IV 06/08/24 22:00 06/09/24 21:59 06/08/24 21:54 61 MLS/HR Midazolam HCl 50 ml @ 1 mls/hr Q24H IV 06/08/24 20:15 06/08/24 20:30 1 MLS/HR objective Gen.: Patient lying in bed in medical ICU. Intubated on mechanical ventilator. Head: Normocephalic, atraumatic. Eyes: PERRLA. Ears: Normal external anatomy. Throat: Endotracheal tube and orogastric tube in place. Neck: Supple, trachea midline. Chest: Transmitted breath sounds bilaterally. Decreased air entry bilaterally. No wheezing. Bibasilar crackles. Cardio vascular: Positive S1, positive S2. Regular rate and rhythm. Abdomen: Positive bowel sounds in all 4 quadrants. Soft, nontender, nondistended. : Olsen in place. Normal external genitalia. Rectal: Deferred Skin: Warm, dry. Intact. Extremities: 2+ radial pulses bilaterally. No lower extremity edema. Neuro: Off sedation. laboratory and microbiology Laboratory Tests 06/08/24 03:55 Test 06/08/24 03:55 Range/Units Serum Glucose 107 H 74-106 mg/dL Assessment/Plan Impression: Acute hypoxic respiratory failure Mechanical ventilator Pleural effusion, right Atelectasis CHF exacerbation Pulmonary embolism Obesity with a BMI of 30.1 Events: Remains on vent support On assist control with respiratory rate of 22, tidal volume 400, PEEP of 8, FiO2 at 30%. CXR demonstrates multifocal airspace disease. Devices in place. On pressors for hemodynamic support Dopamine 5 mcg/min Titrate to keep MAP above 65 mmHg/SBP above 90 mmHg. Remains off Levophed On Eliquis for PE TPN for nutritional support Monitor renal function Monitor electrolytes. Supplement as necessary. If family gives consent, plan for bronchoscopy and right thoracentesis SBT/BAM. 06/05/24 - S/p left thoracentesis on 950 mL's of joycelyn colored fluid removed from left pleural space. 06/03/24 - S/p bronchoscopy - cleared mucous plugging from L6-L10, L1-L5 and R1- R3 06/03/24 - S/p right thoracentesis - 1700 mL of serosanguineous fluid removed from R pleural space. S/p bronchoscopy w/ RML BAL on 05/28/24 - Cleared bloody secretions from L1-L10 and R1-R10 S/p cardioversion on 05/27/24 Labs and imaging reviewed. Rest of plan as noted below. Plan: s/p intubation on mechanical ventilator Status post right thoracentesis with removal of 2200 mL ABG reviewed. Alkalemia due to contraction alkalosis. Hypoxemia with a PO2 of 42 mmHg. Patient was emergently intubated and placed on mechanical ventilation. Currently on assist control with respiratory rate of 22, tidal volume 400, PEEP of 8, FiO2 at 30%. Titrate FIO2 to keep O2 saturation above 92%. VAP bundle Daily ABG and CXR while intubated. Sedate for ventilatory synchrony On pressors for hemodynamic support. Titrate to keep MAP above 65 mmHg/SBP above 90 mmHg. Completed antibiotics. F/u cultures. Pleural fluid cultures showed no growth Monitor renal function due to Acute kidney injury. Monitor electrolytes. Supplement as necessary. Monitor ins and outs Maintain euvolemia Cardiology recommendations appreciated. Nutritional support. Accu-Cheks, ISS. GI/DVT prophylaxis. Condition: Critical Prognosis: Poor given multiple comorbidities. Rest of plan per hospitalist and other consultants. A total of 35 minutes of critical care time was spent reviewing the patient record, examining the patient, making a diagnostic and therapeutic plan, discussing this plan with the medical personnel, following up on diagnostic studies and following the patient for clinical stability excluding any and all procedures. At least 50% of this time was spent in direct, [id number] contact. Thank you Dr. Conn for allowing me to participate in this patient's care. Further recommendations will depend on patient's clinical course. Please do not hesitate to contact me if you have any questions or concerns. This medical document was created using an electronic medical record system with [employer] system. Although this document has been carefully reviewed, there may still be some phonetic and typographical errors. These areas are purely typographical due to imperfections of the software programs, and do not reflect any compromise in the patient's medical care. Dietary Evaluation Review Comments: 1. consider Renal Specific 70g protein restriction witn 2GNa, 3K, low Phos, if no diaylsis needed. 2. consider Renal Standard 2gn, 3K, low phosphate diet if Pt is on dialysis. 3. encourage and monitor po intake to meet 75% of his needs. Expected Outcomes/Goals: avoid uremic symptoms, gradual healed wounds. Plan discussed with: Other (CALEB Erazo) Critical Care Time(min): 35 BOGDAN MANN MD Jun 08, 2024 22:57
[2024-06-09] VITALS (107 sets, daily range): BP systolic 77–155; BP diastolic 28–60; PULSE 75–98; RESP 10–29; TEMP 97.9–100; O2SAT 94–100
[2024-06-09 05:26] LABS: Basophils # (auto) 0 10 ^3/uL (0-0.2); Eosinophils # (auto) 0.1 10 ^3/uL (0-0.8); Lymphocytes # (auto) 0.6 10 ^3/uL (0.4-5.4); Monocytes # (auto) 0.5 10 ^3/uL (0-1.3); Neutrophils # (auto) 4.5 10 ^3/uL (1.6-8.6); Nucleated Red Blood Cells % 0.1 %; White Blood Cell 5.7 10^3/uL (4.4-10.8)
[2024-06-09 05:31] LABS: Basophils % (auto) 0.3 % (0.0-2.0); Eosinophils % (auto) 1.4 % (0.0-7.0); Hematocrit 32.8 % (41.0-53.0); Hemoglobin 10.7 g/dL (13.5-17.5); Lymphocytes % (auto) 10.4 % (10.0-50.0); Mean Corpuscular Hgb Conc. 32.5 g/dL (32.0-36.0); Mean Corpuscular Volume 83.1 fL (80.0-100.0); Neutrophils % (auto) 79.9 % (37.0-80.0); Platelet Count (auto) 131 10^3/uL (140-450); Red Blood Cells 3.95 10^6/uL (4.5-5.90); Red Cell Distribution Width 17.7 % (11.8-14.3)
[2024-06-09 05:34] LABS: Anion Gap 2 (5-15); BUN/Creatinine Ratio 82.1 (10.0-20.0); Magnesium 2.3 mg/dL (1.6-2.6); Triglycerides 88 mg/dL (< 150)
[2024-06-09 05:35] LABS: Phosphorus 3.2 mg/dL (2.4-5.1)
--- NOTE | 2024-06-09 05:40 | DVH ---
CHEST RADIOGRAPH Indication: Intubated Technique: Single frontal view of the chest was obtained COMPARISON: XY CHEST PORTABLE on DOS: 06/08/24, XY CHEST PORTABLE on DOS: 06/07/24, XY CHEST PORTABLE o n DOS: 06/06/24, XY CHEST XRAY 1 VIEW on DOS: 06/05/24, XY CHEST PORTABLE on DOS: 06/05/24 FINDINGS: Lines and Tubes: Unchanged Lungs: Unchanged airspace opacities in the right lower lung and left lower lobe. Pleura: No effusion. No pneumothorax. Cardiomediastinal contours: Unchanged Bones: Unremarkable IMPRESSION: 1. No interval change.
[2024-06-09 06:29] LABS: Base Excess 2.3 mmol/L (-2.0-3.0)
[2024-06-09 06:37] LABS: Alanine Aminotransferase 329 U/L (7-40); Alkaline Phosphatase 262 U/L (46-116); Aspartate Aminotransferase 349 U/L (13-40); Blood Urea Nitrogen 32 mg/dL (9-23); Calcium 8.6 mg/dL (8.7-10.4); Carbon Dioxide 33 mmol/L (20-31); Chloride 112 mmol/L (98-107); Glucose 118 mg/dL (74-106); Potassium 3.2 mmol/L (3.5-5.1); Sodium 147 mmol/L (136-145); Total Protein 4.8 g/dL (5.7-8.2)
[2024-06-09] MEDS ORDERED: SOD CHL 0.45% 1,000 ML IV SCH (07:45)
[2024-06-09] MEDS: POTASSIUM CHL 20MEQ/100ML 100 ML IV SCH (10:06)
[2024-06-09] MEDS: D5W/SOD CHL 0.45% 1,000 ML IV SCH (10:11)
--- NOTE | 2024-06-09 11:54 | CONS ---
Pharmacy Clinical Information: Na = 147, Cl = 112; consider d/c D5-1/2NS as running this at 100ml/hr contri butes 184 mEq/day. Could change to D5 alone if fluid volume/calories needed in addition to TPN. MARGOT SO PHARMACIST Jun 09, 2024 11:54
--- NOTE | 2024-06-09 14:56 | DVHNC2 ---
Procedure - Bronchoscopy procedure note: Indications: Left lower lobe atelectasis, Possible mucous plugging. Medicines: See PEST CONTROL CHEMICAL TECHNICIAN notes. Complications: None Procedure: Patient medications and allergies reviewed. The risks and benefits of the procedure and the sedation options and risk were discussed with the patient's healthcare proxy. All questions were answered and informed consent was obtained. Patient identification and proposed procedure were verified prior to the procedure by the physician, and a nurse, and the respiratory therapist in ICU room. The heart rate, respiratory rate, oxygen saturations, blood pressure, adequacy of pulmonary ventilation, and response to care were monitored throughout the procedure. The physical status of the patient was reassessed after the procedure. After obtaining informed consent, the bronchoscope was introduced through the endotracheal tube and advanced into the trachea bronchial tree of both lungs. The procedure was accomplished without difficulty. The patient tolerated the procedure well. Findings: The trachea is in normal caliber. The fredo is sharp. The tracheobronchial tree of the right lung was examined to at least the first subsegmental level. The bronchial mucosa and anatomy in the right lung are normal. There are no endobronchial lesions. There were no secretions. The left upper lobe, lingula, and left lower lobe were examined to at least the first subsegmental level. Bronchial mucosa and anatomy in the left upper lobe and lingula are normal. There were no endobronchial lesions. There was copious whitish secretions from left main stem bronchus onward throughout L4-L10. Mucous plugging removed from L4-L10. Lingular Bronchoalveolar lavage (BAL) obtained. Lingular BAL sent for gram stain and culture. There was no active bleeding at the completion of the procedure. Estimated blood loss: Less than 5 mL. Impression: Left lower lobe and lingular atelectasis due to mucous plugging Mucous plugging from L4-L10 Lingular BAL performed Recommendation: Follow-up Lingular BAL results. Procedure codes: 24691, bronchoscopy, rigid and flexible, including fluoroscopic guidance, one performed; with bronchial endobronchial broncho-alveolar lavage, single or multiple sites BOGDAN MANN MD Jun 09, 2024 14:56
--- NOTE | 2024-06-09 14:58 | DVHNC2 ---
Procedure - Ultrasound-guided RIGHT thoracentesis procedure note: Physician: Dr Carly Scott Time out time: 1455 pm Patient medications and allergies reviewed. The risks and benefits of the pro cedure and the sedation options and risk were discussed with the patient's healthcare proxy. All questions were answered and informed consent was obtained. Patient identification and proposed procedure were verified prior to the procedure by the physician, and a nurse in the patient's room. The heart rate, respiratory rate, oxygen saturations, blood pressure, adequacy of pulmona ry ventilation, and response to care were monitored throughout the procedure. The physical status of the patient was reassessed after the procedure. Date: 06/09/2024 Consent: Consent was obtained from patient's healthcare proxy prior to procedure. Indication, risks, and benefits were explained at length. Indication: Recurrent Right pleural effusion Procedure summary: A time-out was performed and a chest x-ray was reviewed prior to procedure. The appropriate site was confirmed and marked. My hands were washed immediately prior to the procedure, I wore a surgical cap, mask with protective eyewear, sterile gown and sterile gloves throughout the procedure. The patient was prepped and draped in a sterile manner using chlorhexidine scrub after the appropriate level was percussed and confirmed by ultrasound. 1% lidocaine was used to anesthetize the skin, subcutaneous tissue, superior aspect of the rib periosteum and parietal pleura. A finder needle was then introduced over the superior aspect of the rib to locate the pleural fluid; NIHARIKA colored fluid was aspirated. Thoracentesis needle was then introduced through the skin incision into the pleural space using negative aspiration pressure. The thoracentesis catheter was then threaded without difficulty. 550 mL's of NHIARIKA colored fluid were removed without difficulty. The catheter was then removed. No immediate complications were noted during the procedure. A postprocedure chest x-ray is pending at the time of this note. The pleural fluid will be sent for cultures. Estimated blood loss is less than 5 mL's. CPT: 12776 BOGDAN SCOTT MD Jun 09, 2024 14:58
--- NOTE | 2024-06-09 15:28 | DVH ---
EXAM: XY CHEST PORTABLE TECHNIQUE: Single frontal chest radiograph CLINICAL HISTORY: s/p bronchoscopy and thoracentesis COMPARISON: XY CHEST PORTABLE on DOS: 06/09/24, XY CHEST PORTABLE on DOS: 06/08/24, XY CHEST PORTABLE o n DOS: 06/07/24 Findings/Impression: Frontal chest radiograph demonstrates no acute osseous or superficial soft tissue abnormalities. Endotracheal tube terminates 7.1 cm from the fredo. Enteric tube is overlying the plane of the stoma ch. Left sided central line terminates near the superior cavoatrial junction. The trachea is midline. The cardiac silhouette and mediastinum are within normal limits. Small left and trace right pleural effusions with compressive atelectasis. A superimposed infectious process is not excluded. Bibasilar airspace opacities. No pneumothorax.
[2024-06-09] MEDS: TPN PER PHARMACY IV NR (21:28)
--- NOTE | 2024-06-09 21:51 | DVHPN2 ---
Progress Note - Dictate Date Seen: Jun 09, 2024 Medical Necessity Reason Pt with a Central, PICC or Fol: Yes The following are medically ne: Olsen Catheter Reason for olsen catheter: Strict I&O Subjective Patient seen and examined at bedside. Sedated, intubated on mechanical ventilator. Overnight events reviewed. vital signs Vital Sign Date Time Temp Pulse Resp B/P (MAP) Pulse Ox O2 Delivery O2 Flow Rate FiO2 06/09/24 20:00 30 06/09/24 20:00 22 100 Mechanical Ventilator+ 06/09/24 20:00 81 06/09/24 19:59 119/47 (71) 06/09/24 16:16 98.6 209.5 Total Intake and Output 06/08/24 06/08/24 06/09/24 15:00 23:00 07:00 Intake Total 702.575 ml 37641.805 ml 796.25 ml Output Total 1000 ml 1100 ml Balance 702.575 ml 55618.805 ml -303.75 ml medications Current Medications Medications Dose Ordered Sig/Amy Route Start Time Stop Time Status Last Admin Dose Admin Digoxin 0.125 mg DAILY PO 05/19/24 10:00 06/09/24 10:15 0.125 MG Apixaban 5 mg BID PO 05/30/24 10:00 06/09/24 21:34 5 MG Potassium Chloride 100 ml @ 50 mls/hr Q2H IV 05/27/24 17:15 05/28/24 01:14 UNV Amino Acids 0 ml @ 0 mls/hr PER PHARMACY IV 05/30/24 12:00 Diagnostic Test (Pha) 1 strip Q6HR 05/30/24 18:00 06/09/24 18:44 1 STRIP Insulin Human Regular FOLLOW SLIDING SCALE Q6HR SC 05/30/24 18:00 06/03/24 11:36 2 UNITS Dextrose 50 ml UD IV 05/30/24 12:15 Acetaminophen 650 mg Q6HP PRN PO 05/31/24 19:30 06/06/24 15:53 650 MG Norepinephrine Bitartrate 250 ml @ 3.75 mls/hr Q24H IV 06/04/24 10:30 06/09/24 04:06 22.5 MLS/HR Fentanyl Citrate 250 ml @ 2.5 mls/hr Q24H IV 06/06/24 12:45 06/09/24 11:45 10 MLS/HR Dexmedetomidine HCl 400 mcg/ Dextrose 100 ml @ 4.21 mls/hr [id number] IV 06/06/24 12:45 06/08/24 00:17 4.21 MLS/HR Spironolactone 25 mg DAILY GT 06/08/24 11:00 06/09/24 11:00 25 MG Fat Emulsion Intravenous 100 ml/Potassium Phosphate 44 meq/ Magnesium Sulfate 26 meq/ Multivitamins 10 ml/Amino Acids/ Dextrose 1,476.5 ml @ 61 mls/hr [id number] IV 06/08/24 22:00 06/09/24 21:59 06/08/24 21:54 61 MLS/HR Midazolam HCl 50 ml @ 1 mls/hr Q24H IV 06/08/24 20:15 06/09/24 11:43 1 MLS/HR Dextrose/Sodium Chloride 1,000 ml @ 100 mls/hr Q10H IV 06/09/24 08:00 06/09/24 18:31 100 MLS/HR Fat Emulsion Intravenous 100 ml/Potassium Phosphate 44 meq/ Magnesium Sulfate 22 meq/ Multivitamins 10 ml/Amino Acids/ Dextrose 1,475.5 ml @ 61 mls/hr [id number] IV 06/09/24 22:00 06/10/24 21:59 06/09/24 21:28 61 MLS/HR objective Gen.: Patient lying in bed in medical ICU. Sedated, intubated on mechanical ventilator. Head: Normocephalic, atraumatic. Eyes: PERRLA. Ears: Normal external anatomy. Throat: Endotracheal tube and orogastric tube in place. Neck: Supple, trachea midline. Chest: Transmitted breath sounds bilaterally. Decreased air entry bilaterally. No wheezing. Bibasilar crackles. Cardio vascular: Positive S1, positive S2. Regular rate and rhythm. Abdomen: Positive bowel sounds in all 4 quadrants. Soft, nontender, nondistended. : Olsen in place. Normal external genitalia. Rectal: Deferred Skin: Warm, dry. Intact. Extremities: 2+ radial pulses bilaterally. No lower extremity edema. Neuro: Sedated. laboratory and microbiology Laboratory Tests 06/09/24 05:05 Test 06/09/24 05:05 Range/Units Serum Glucose 118 H 74-106 mg/dL Assessment/Plan Impression: Acute hypoxic respiratory failure Mechanical ventilator Pleural effusion, right Atelectasis CHF exacerbation Pulmonary embolism Obesity with a BMI of 30.1 Events: Remains on vent support On assist control with respiratory rate of 22, tidal volume 400 -->450, PEEP of 8, FiO2 at 30%. Note, overnight the patient became tachycardic and restless He was re-sedated. No CPAP today. S/p bronchoscopy - removed copious secretions from L1-L10 S/p right thoracentesis - 550 ml joycelyn fluid removed from right pleural space. See separate procedure notes for details. Sedated on Versed Fentanyl for analgesia Off Precedex ABG reviewed, compensated CXR demonstrates small left and trace right pleural effusions with compressive atelectasis. Bibasilar airspace opacities. Devices in place. On pressors for hemodynamic support Levophed 4 mcg/min Titrate to keep MAP above 65 mmHg/SBP above 90 mmHg. On Eliquis for PE TPN for nutritional support Monitor renal function Monitor electrolytes. Supplement as necessary. Potassium supplementation SBT/BAM. Plan for CPAP in AM. 06/05/24 - S/p left thoracentesis on 950 mL's of joycelyn colored fluid removed from left pleural space. 06/03/24 - S/p bronchoscopy - cleared mucous plugging from L6-L10, L1-L5 and R1- R3 06/03/24 - S/p right thoracentesis - 1700 mL of serosanguineous fluid removed from R pleural space. S/p bronchoscopy w/ RML BAL on 05/28/24 - Cleared bloody secretions from L1-L10 and R1-R10 S/p cardioversion on 05/27/24 Labs and imaging reviewed. Rest of plan as noted below. Plan: s/p intubation on mechanical ventilator Status post right thoracentesis with removal of 2200 mL ABG reviewed. Alkalemia due to contraction alkalosis. Hypoxemia with a PO2 of 42 mmHg. Patient was emergently intubated and placed on mechanical ventilation. Currently on assist control with respiratory rate of 22, tidal volume 450, PEEP of 8, FiO2 at 30%. Titrate FIO2 to keep O2 saturation above 92%. VAP bundle Daily ABG and CXR while intubated. Sedate for ventilatory synchrony On pressors for hemodynamic support. Titrate to keep MAP above 65 mmHg/SBP above 90 mmHg. Completed antibiotics. F/u cultures. Pleural fluid cultures showed no growth Monitor renal function due to Acute kidney injury. Monitor electrolytes. Supplement as necessary. Monitor ins and outs Maintain euvolemia Cardiology recommendations appreciated. Nutritional support. Accu-Cheks, ISS. GI/DVT prophylaxis. Condition: Critical Prognosis: Poor given multiple comorbidities. Rest of plan per hospitalist and other consultants. A total of 35 minutes of critical care time was spent reviewing the patient record, examining the patient, making a diagnostic and therapeutic plan, discussing this plan with the medical personnel, following up on diagnostic studies and following the patient for clinical stability excluding any and all procedures. At least 50% of this time was spent in direct, [id number] contact. Thank you Dr. Conn for allowing me to participate in this patient's care. Further recommendations will depend on patient's clinical course. Please do not hesitate to contact me if you have any questions or concerns. This medical document was created using an electronic medical record system with [employer] dictation system. Although this document has been carefully reviewed, there may still be some phonetic and typographical errors. These areas are purely typographical due to imperfections of the software programs, and do not reflect any compromise in the patient's medical care. Dietary Evaluation Review Comments: 1. consider Renal Specific 70g protein restriction witn 2GNa, 3K, low Phos, if no diaylsis needed. 2. consider Renal Standard 2gn, 3K, low phosphate diet if Pt is on dialysis. 3. encourage and monitor po intake to meet 75% of his needs. Expected Outcomes/Goals: avoid uremic symptoms, gradual healed wounds. Plan discussed with: Other (CALEB Erazo) Critical Care Time(min): 35 BOGDAN MANN MD Jun 09, 2024 21:51
[2024-06-10] VITALS (105 sets, daily range): BP systolic 83–151; BP diastolic 25–67; PULSE 76–115; RESP 10–38; TEMP 99–101.5; O2SAT 91–100
--- NOTE | 2024-06-10 05:24 | DVH ---
CHEST RADIOGRAPH Indication: pleural effusion Technique: Single frontal view of the chest was obtained Comparison: XY CHEST PORTABLE on DOS: 06/09/24 FINDINGS: Lines and Tubes: The endotracheal tube terminates 7.9 cm above the fredo. Left central venous isabelle ter terminates in the superior vena cava. The enteric tube courses below the left hemidiaphragm and e xtends outside the field of view. Lungs: Patchy bilateral opacities. Pleura: Trace bilateral pleural effusions. No pneumothorax. Cardiomediastinal contours: Unremarkable Bones: No acute osseous abnormality. IMPRESSION: 1. Stable position of the support lines and tubes. 2. Trace bilateral pleural effusions and patchy bilateral opacities are similar to prior study.
[2024-06-10 05:32] LABS: Anion Gap 1 (5-15); Glucose 105 mg/dL (74-106); Magnesium 2.3 mg/dL (1.6-2.6); Potassium 3.6 mmol/L (3.5-5.1)
[2024-06-10 05:33] LABS: Phosphorus 2.5 mg/dL (2.4-5.1)
[2024-06-10 05:57] LABS: Alanine Aminotransferase 267 U/L (7-40); Albumin 2.1 g/dL (3.2-4.8); Alkaline Phosphatase 240 U/L (46-116); Aspartate Aminotransferase 279 U/L (13-40); BUN/Creatinine Ratio 94.3 (10.0-20.0); Bilirubin, Total 3.3 mg/dL (0.2-1.0); Blood Urea Nitrogen 33 mg/dL (9-23); Calcium 8.6 mg/dL (8.7-10.4); Carbon Dioxide 34 mmol/L (20-31); Chloride 112 mmol/L (98-107); Sodium 147 mmol/L (136-145); Total Protein 4.5 g/dL (5.7-8.2)
[2024-06-10 07:36] LABS: Base Excess 1.4 mmol/L (-2.0-3.0)
--- NOTE | 2024-06-10 12:23 | DVHPN2 ---
Progress Note - Dictate Date Seen: Jun 08, 2024 Medical Necessity Reason Pt with a Central, PICC or Fol: Yes The following are medically ne: Olsen Catheter Reason for olsen catheter: Strict I&O Subjective PT WITH SS COMPLEX INCRESEING SOB HARVEY LE EDEMA HFrEF CHRONIC AND ACUTE NOW WITH HEMOPTYSIS TACHYCARDIA CTA LUNG C/W PE ACUTE vital signs Vital Sign Date Time Temp Pulse Resp B/P (MAP) Pulse Ox O2 Delivery O2 Flow Rate FiO2 06/10/24 10:14 98 34 119/48 (71) 95 30 06/10/24 10:00 Mechanical Ventilator+ 06/10/24 08:00 99.1 99.1 Total Intake and Output 06/09/24 06/09/24 06/10/24 15:00 23:00 07:00 Intake Total 1326.25 ml 1511.0 ml 1454.00 ml Output Total 1150 ml 750 ml Balance 1326.25 ml 361.0 ml 704.00 ml medications Current Medications Medications Dose Ordered Sig/Amy Route Start Time Stop Time Status Last Admin Dose Admin Digoxin 0.125 mg DAILY PO 05/19/24 10:00 06/10/24 09:26 0.125 MG Apixaban 5 mg BID PO 05/30/24 10:00 06/10/24 09:25 5 MG Potassium Chloride 100 ml @ 50 mls/hr Q2H IV 05/27/24 17:15 05/28/24 01:14 UNV Amino Acids 0 ml @ 0 mls/hr PER PHARMACY IV 05/30/24 12:00 Diagnostic Test (Pha) 1 strip Q6HR 05/30/24 18:00 06/10/24 11:09 1 STRIP Insulin Human Regular FOLLOW SLIDING SCALE Q6HR SC 05/30/24 18:00 06/03/24 11:36 2 UNITS Dextrose 50 ml UD IV 05/30/24 12:15 Acetaminophen 650 mg Q6HP PRN PO 05/31/24 19:30 06/06/24 15:53 650 MG Norepinephrine Bitartrate 250 ml @ 3.75 mls/hr Q24H IV 06/04/24 10:30 06/09/24 04:06 22.5 MLS/HR Fentanyl Citrate 250 ml @ 2.5 mls/hr Q24H IV 06/06/24 12:45 06/10/24 05:29 5 MLS/HR Dexmedetomidine HCl 400 mcg/ Dextrose 100 ml @ 4.21 mls/hr [id number] IV 06/06/24 12:45 06/10/24 07:30 4.21 MLS/HR Spironolactone 25 mg DAILY GT 06/08/24 11:00 06/10/24 09:25 25 MG Midazolam HCl 50 ml @ 1 mls/hr Q24H IV 06/08/24 20:15 06/09/24 11:43 1 MLS/HR Dextrose/Sodium Chloride 1,000 ml @ 100 mls/hr Q10H IV 06/09/24 08:00 06/10/24 04:38 100 MLS/HR Fat Emulsion Intravenous 100 ml/Potassium Phosphate 44 meq/ Magnesium Sulfate 22 meq/ Multivitamins 10 ml/Amino Acids/ Dextrose 1,475.5 ml @ 61 mls/hr [id number] IV 06/09/24 22:00 06/10/24 21:59 06/09/24 21:28 61 MLS/HR Fat Emulsion Intravenous 100 ml/Potassium Phosphate 66 meq/ Magnesium Sulfate 22 meq/ Multivitamins 10 ml/Chromium/ Copper/Manganese/ Zinc 1 ml/Amino Acids/Dextrose 1,481.5 ml @ 62 mls/hr [id number] IV 06/10/24 22:00 06/11/24 21:59 objective PUL DIFF RHONCHI JVD ANGLE OF THE JAW CV RR PMI DIFFUSE EXT 3+ EDEMA laboratory and microbiology Laboratory Tests 06/10/24 04:42 06/09/24 05:05 Test 06/10/24 04:42 Range/Units Serum Glucose 105 74-106 mg/dL Problem List SS COMPLEX INCRESEING SOB HARVEY LE EDEMA HFrEF CHRONIC AND ACUTE EF < 20% NOW WITH HEMOPTYSIS TACHYCARDIA CTA LUNG C/W PE 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 Large filling defect right pulmonary artery consistent with pulmonary embolus. No film findings of pulmonary artery hypertension. No pulmonary emboli noted on the left. 2. Findings are also suggestive of right heart strain. 3. Large right pleural effusion. HEPARIN DRIP\ LASIX DRIP WILL START ORAL ANTICOAGULATION IN 48 HOURS ABX LE ARTERIAL DOPPLER NO SIGNIFICANT DISEASE FOR LIMB RISK DC HEPARIN START ELIQUIS S/P CT HEAD CURRENTLY ON BiPAP IMPROVING RESP STATUS 7.32/59/69 TITRATE BIPAP THORACENTESIS ULTRASOUND GUIDED MRI OF ABD S/P THORACENTESIS 2200 CC DRAINED CXR BILATERAL INFILTRATE PROMINENT MEDIASTINUM CARDIOMEGALY HYPOKALEMIA BEING CORRECTED A FLUTTER S/P CARDIOVERSION SINUS RHYTHM TITRATE OFF LEVOPHED USE ALBUMIN FOR PRESSURE SUPORT DC LASIX DRIP START D5 1/4 NS AT 125 CC/HR BMP/ BNP DAILY cont volume replacement contraction alkalosis leukocytosis improved monitor h/h HYPERNATREMIA IMPROVING DIAMOX X 1 DOSE HYPERNATREMIA CORRECTED DC IV FLUID CONT TPN INCREASE VENT SETTING TO AC 22 EPISODE OF [place] CORRECT ACIDOSIS MAG SO4 2 G TITRATE OFF LEVOPHED DIAMOX TREAT METABOLIC ALKALOSIS RESP ACIDOSIS START TITRATING OFF SEDATION IMPROVED RESP PARAMETERS LIVER ENZYMES STILL ELEVATED wean off sedation Dietary Evaluation Review Comments: 1. consider Renal Specific 70g protein restriction witn 2GNa, 3K, low Phos, if no diaylsis needed. 2. consider Renal Standard 2gn, 3K, low phosphate diet if Pt is on dialysis. 3. encourage and monitor po intake to meet 75% of his needs. Expected Outcomes/Goals: avoid uremic symptoms, gradual healed wounds. Plan discussed with: Patient Critical Care Time(min): 35 ISSAC SHAH MD Jun 10, 2024 12:23
--- NOTE | 2024-06-10 12:26 | DVHPN2 ---
Progress Note - Dictate Date Seen: Jun 10, 2024 Medical Necessity Reason Pt with a Central, PICC or Fol: Yes The following are medically ne: Olsen Catheter Reason for olsen catheter: Strict I&O Subjective PT WITH SS COMPLEX INCRESEING SOB HARVEY LE EDEMA HFrEF CHRONIC AND ACUTE NOW WITH HEMOPTYSIS TACHYCARDIA CTA LUNG C/W PE ACUTE vital signs Vital Sign Date Time Temp Pulse Resp B/P (MAP) Pulse Ox O2 Delivery O2 Flow Rate FiO2 06/10/24 10:14 98 34 119/48 (71) 95 30 06/10/24 10:00 Mechanical Ventilator+ 06/10/24 08:00 99.1 99.1 Total Intake and Output 06/09/24 06/09/24 06/10/24 15:00 23:00 07:00 Intake Total 1326.25 ml 1511.0 ml 1454.00 ml Output Total 1150 ml 750 ml Balance 1326.25 ml 361.0 ml 704.00 ml medications Current Medications Medications Dose Ordered Sig/Amy Route Start Time Stop Time Status Last Admin Dose Admin Digoxin 0.125 mg DAILY PO 05/19/24 10:00 06/10/24 09:26 0.125 MG Apixaban 5 mg BID PO 05/30/24 10:00 06/10/24 09:25 5 MG Potassium Chloride 100 ml @ 50 mls/hr Q2H IV 05/27/24 17:15 05/28/24 01:14 UNV Amino Acids 0 ml @ 0 mls/hr PER PHARMACY IV 05/30/24 12:00 Diagnostic Test (Pha) 1 strip Q6HR 05/30/24 18:00 06/10/24 11:09 1 STRIP Insulin Human Regular FOLLOW SLIDING SCALE Q6HR SC 05/30/24 18:00 06/03/24 11:36 2 UNITS Dextrose 50 ml UD IV 05/30/24 12:15 Acetaminophen 650 mg Q6HP PRN PO 05/31/24 19:30 06/06/24 15:53 650 MG Norepinephrine Bitartrate 250 ml @ 3.75 mls/hr Q24H IV 06/04/24 10:30 06/09/24 04:06 22.5 MLS/HR Fentanyl Citrate 250 ml @ 2.5 mls/hr Q24H IV 06/06/24 12:45 06/10/24 05:29 5 MLS/HR Dexmedetomidine HCl 400 mcg/ Dextrose 100 ml @ 4.21 mls/hr [id number] IV 06/06/24 12:45 06/10/24 07:30 4.21 MLS/HR Spironolactone 25 mg DAILY GT 06/08/24 11:00 06/10/24 09:25 25 MG Midazolam HCl 50 ml @ 1 mls/hr Q24H IV 06/08/24 20:15 06/09/24 11:43 1 MLS/HR Dextrose/Sodium Chloride 1,000 ml @ 100 mls/hr Q10H IV 06/09/24 08:00 06/10/24 04:38 100 MLS/HR Fat Emulsion Intravenous 100 ml/Potassium Phosphate 44 meq/ Magnesium Sulfate 22 meq/ Multivitamins 10 ml/Amino Acids/ Dextrose 1,475.5 ml @ 61 mls/hr [id number] IV 06/09/24 22:00 06/10/24 21:59 06/09/24 21:28 61 MLS/HR Fat Emulsion Intravenous 100 ml/Potassium Phosphate 66 meq/ Magnesium Sulfate 22 meq/ Multivitamins 10 ml/Chromium/ Copper/Manganese/ Zinc 1 ml/Amino Acids/Dextrose 1,481.5 ml @ 62 mls/hr [id number] IV 06/10/24 22:00 06/11/24 21:59 objective PUL DIFF RHONCHI JVD ANGLE OF THE JAW CV RR PMI DIFFUSE EXT 3+ EDEMA laboratory and microbiology Laboratory Tests 06/10/24 04:42 06/09/24 05:05 Test 06/10/24 04:42 Range/Units Serum Glucose 105 74-106 mg/dL Problem List SS COMPLEX INCRESEING SOB HARVEY LE EDEMA HFrEF CHRONIC AND ACUTE EF < 20% NOW WITH HEMOPTYSIS TACHYCARDIA CTA LUNG C/W PE 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 Large filling defect right pulmonary artery consistent with pulmonary embolus. No film findings of pulmonary artery hypertension. No pulmonary emboli noted on the left. 2. Findings are also suggestive of right heart strain. 3. Large right pleural effusion. HEPARIN DRIP\ LASIX DRIP WILL START ORAL ANTICOAGULATION IN 48 HOURS ABX LE ARTERIAL DOPPLER NO SIGNIFICANT DISEASE FOR LIMB RISK DC HEPARIN START ELIQUIS S/P CT HEAD CURRENTLY ON BiPAP IMPROVING RESP STATUS 7.32/59/69 TITRATE BIPAP THORACENTESIS ULTRASOUND GUIDED MRI OF ABD S/P THORACENTESIS 2200 CC DRAINED CXR BILATERAL INFILTRATE PROMINENT MEDIASTINUM CARDIOMEGALY HYPOKALEMIA BEING CORRECTED A FLUTTER S/P CARDIOVERSION SINUS RHYTHM TITRATE OFF LEVOPHED USE ALBUMIN FOR PRESSURE SUPORT DC LASIX DRIP START D5 1/4 NS AT 125 CC/HR BMP/ BNP DAILY cont volume replacement contraction alkalosis leukocytosis improved monitor h/h HYPERNATREMIA IMPROVING DIAMOX X 1 DOSE HYPERNATREMIA CORRECTED DC IV FLUID CONT TPN INCREASE VENT SETTING TO AC 22 EPISODE OF [place] CORRECT ACIDOSIS MAG SO4 2 G TITRATE OFF LEVOPHED DIAMOX TREAT METABOLIC ALKALOSIS RESP ACIDOSIS START TITRATING OFF SEDATION IMPROVED RESP PARAMETERS LIVER ENZYMES STILL ELEVATED wean off sedation CORRECT HYPERNATREMIA CHECK BNP AICD IMPLANTATION Dietary Evaluation Review Comments: 1. consider Renal Specific 70g protein restriction witn 2GNa, 3K, low Phos, if no diaylsis needed. 2. consider Renal Standard 2gn, 3K, low phosphate diet if Pt is on dialysis. 3. encourage and monitor po intake to meet 75% of his needs. Expected Outcomes/Goals: avoid uremic symptoms, gradual healed wounds. Plan discussed with: Patient Critical Care Time(min): 35 ISSAC SHAH MD Jun 10, 2024 12:26
--- NOTE | 2024-06-10 16:21 | DVHINCON2 ---
Consultation - Surgical Date Seen: Jun 10, 2024 Referring Physician Referring Physician Fabien Reason for Consultation Sacral decubitus ulcer Allergies and medications Allergies: Coded Allergies: NO KNOWN ALLERGIES (Unverified , 03/11/24) Home Meds Active Scripts Bumetanide (Bumetanide) 2 Mg Tab, 1 TAB PO BID for 30 Days, #60 TAB 0 Refills Prov:FARHAD FLORES MD 03/19/24 Metoprolol Succinate (Metoprolol Succinate Er) 50 Mg Tab, 1 TAB PO DAILY for 30 Days, #30 TAB 5 Refills Prov:FARHAD FLORES MD 03/19/24 Sacubitril-Valsartan (Entresto 24-26 mg) 1 Tab Tab, 1 TAB PO BID for 30 Days, #60 TAB Prov:FARHAD FLORES MD 03/19/24 Doxycycline Monohydrate (Doxycycline Monohydrate) 100 Mg Cap, 1 CAP PO BID for 14 Days, #28 CAP Prov:FARHAD FLORES MD 03/19/24 Reported Medications Spironolactone (Spironolactone) 50 Mg Tab, 1 TAB PO DAILY for 30 Days, #30 05/21/24 Ursodiol (Ursodiol) 300 Mg Cap, 1 TAB PO BID for 90 Days, #180 03/18/24 Terbinafine Hcl (Terbinafine Hcl) 250 Mg Tab, 1 TAB PO DAILY for 90 Days, #90 03/18/24 Furosemide (Furosemide) 20 Mg Tab, 1 TAB PO DAILY, #90 TAB 1 Refill 03/12/24 Terbinafine Hcl (Topical) (Lamisil At Athletes Foot) 1 % Cre, 1 % EX, CRE 03/12/24 Losartan Potassium (Losartan Potassium) 50 Mg Tab, 1 TAB PO DAILY, #30 TAB 5 Refills 03/12/24 Review of systems Review of Systems: Deferred Examination Vital signs Vital Signs Date Time Temp Pulse Resp B/P (MAP) Pulse Ox O2 Delivery O2 Flow Rate FiO2 06/10/24 15:45 96 21 113/50 (71) 92 109/44 (65) 06/10/24 15:36 30 06/10/24 14:37 101.9 06/10/24 14:00 Mechanical Ventilator+ Medications Current Medications Medications (Trade) Dose Ordered Sig/Amy Route PRN Reason Start Time Stop Time Status Last Admin Fat Emulsion Intravenous 100 ml/Potassium Phosphate 44 meq/ Magnesium Sulfate 22 meq/ Multivitamins 10 ml/Amino Acids/ Dextrose 1,475.5 ml @ 61 mls/hr [id number] IV 06/09/24 22:00 06/10/24 21:59 06/09/24 21:28 Fat Emulsion Intravenous 100 ml/Potassium Phosphate 66 meq/ Magnesium Sulfate 22 meq/ Multivitamins 10 ml/Chromium/ Copper/Manganese/ Zinc 1 ml/Amino Acids/Dextrose 1,481.5 ml @ 62 mls/hr [id number] IV 06/10/24 22:00 06/11/24 21:59 Ceftriaxone Sodium 50 ml @ 100 mls/hr DAILY@09 IV 06/10/24 15:30 Azithromycin 250 ml @ 125 mls/hr DAILY IV 06/10/24 15:30 Laboratory Labs Test 06/10/24 15:15 06/10/24 11:01 06/10/24 07:19 06/10/24 04:42 Range/Units Lactic Acid Level 1.0 0.4-2.0 mmol/L POC Glucose 115 H 70-106 mg/dl Blood Gas Specimen Type Arterial Blood Gas Sample Site Right brachial Blood Gas Patient Temperature 37.0 Arterial Blood Date Drawn [id number] Arterial Blood pH 7.384 7.350-7.450 Arterial Blood Partial Pressure CO2 45.9 35.0-48.0 mmHg Arterial Blood Partial Pressure O2 65.9 L 83.0-108.0 mmHg Arterial Blood HCO3 26.8 21.0-28.0 mmol/L Arterial Blood Oxygen Saturation 90.9 L 94.0-98.0 % Arterial Blood Base Excess 1.4 -2.0-3.0 mmol/L Arterial Blood Oxyhemoglobin 89.3 L 94.0-98.0 % Arterial Blood Carboxyhemoglobin 1.1 0.5-1.5 % Arterial Blood Methemoglobin 0.7 0.0-1.5 % Mark Test Modified Blood Gas Total Hemoglobin 10.50 L 13.5-17.5 g/dL Blood Gas Set Respiration Rate 22.0 Blood Gas Modality Vent - ac FiO2 % 30.0 Blood Gas Tidal Volume 400.0 Blood Gas PEEP or CPAP 8.0 Sodium Level 147 H 136-145 mmol/L Potassium Level 3.6 3.5-5.1 mmol/L Chloride Level 112 H 98-107 mmol/L Carbon Dioxide Level 34 H 20-31 mmol/L Anion Gap 1 L 5-15 Blood Urea Nitrogen 33 H 9-23 mg/dL Creatinine 0.35 L 0.700-1.30 mg/dL Glomerular Filtration Rate Calc 128 >90 mL/min BUN/Creatinine Ratio 94.3 H 10.0-20.0 Serum Glucose 105 74-106 mg/dL Calcium Level 8.6 L 8.7-10.4 mg/dL Phosphorus Level 2.5 2.4-5.1 mg/dL Magnesium Level 2.3 1.6-2.6 mg/dL Total Bilirubin 3.3 H 0.2-1.0 mg/dL Aspartate Amino Transferase (AST) 279 H 13-40 U/L Alanine Aminotransferase (ALT) 267 H 7-40 U/L Alkaline Phosphatase 240 H 46-116 U/L B-Type Natriuretic Peptide 563.42 0-100 pg/mL Total Protein 4.5 L 5.7-8.2 g/dL Albumin 2.1 L 3.2-4.8 g/dL Test 06/09/24 05:05 06/08/24 18:38 06/08/24 10:33 06/07/24 11:30 Range/Units White Blood Count 5.7 4.4-10.8 10^3/uL Red Blood Count 3.95 L 4.5-5.90 10^6/uL Hemoglobin 10.7 L 13.5-17.5 g/dL Hematocrit 32.8 L 41.0-53.0 % Mean Corpuscular Volume 83.1 80.0-100.0 fL Mean Corpuscular Hemoglobin 27.0 L 28.0-32.0 pg Mean Corpuscular Hemoglobin Concent 32.5 32.0-36.0 g/dL Red Cell Distribution Width 17.7 H 11.8-14.3 % Platelet Count 131 L 140-450 10^3/uL Mean Platelet Volume 8.0 6.9-10.8 fL Neutrophils (%) (Auto) 79.9 37.0-80.0 % Lymphocytes (%) (Auto) 10.4 10.0-50.0 % Monocytes (%) (Auto) 8.0 0.0-12.0 % Eosinophils (%) (Auto) 1.4 0.0-7.0 % Basophils (%) (Auto) 0.3 0.0-2.0 % Neutrophils # (Auto) 4.5 1.6-8.6 10 ^3/uL Lymphocytes # (Auto) 0.6 0.4-5.4 10 ^3/uL Monocytes # (Auto) 0.5 0-1.3 10 ^3/uL Eosinophils # (Auto) 0.1 0-0.8 10 ^3/uL Basophils # (Auto) 0 0-0.2 10 ^3/uL Nucleated Red Blood Cells 0.1 % Triglycerides Level 88 < 150 mg/dL Digoxin Level 0.23 L 0.8-2 ng/mL Blood Gas Spontaneous Rate 24 Blood Gas Spontaneous Tidal Volume 514 Blood Gas Inspiratory Pressure 19.0 Bl Gas Inspiratory/Expiratory Ratio 1:2.7 Specimen Drawn By kuldeep rt Blood Gas Pressure Support 10 Test 06/05/24 22:10 06/03/24 14:48 05/24/24 13:10 05/24/24 07:24 Range/Units Body Fluid Source Pleural fluid Body Fluid pH 8.0 Body Fluid WBC (Manual) 1890 H 0-200 CUMM Body Fluid RBC (Manual) 00320 H 0-2000 CUMM Body Fluid Mononuclear Cells 82 % Body Fluid Polymorphonuclear Cells 18 0-25 % Body Fluid Glucose 49 . mg/dL Body Fluid Total Protein 2.0 . g/dL Body Fluid Lactate Dehydrogenase 695 . IU/L Blood Gas Critical Value Read Back Yes Blood Gas Notified Whom bule Scott md Blood Gas Notified Time [id number] Blood Gas Notified By Frank echevarria technical adjuster Blood Gas EPAP 5 Blood Gas IPAP 14 Blood Gas Liter Flow 5.00 Test 05/24/24 06:55 05/22/24 19:05 05/19/24 10:08 Range/Units Ammonia 22 11-32 umol/L Prothrombin Time 17.7 H 9.3-11.8 sec Prothrombin Time INR 1.74 H 0.9-1.15 Activated Partial Thromboplast Time 54.8 H 24.5-34.5 SEC Urine Color Yellow Yellow Urine Clarity Turbid H Clear Urine pH 5.0 5.0-9.0 Urine Specific [place] 1.012 1.001-1.035 Urine Protein 1+ H Negative Urine Ketones Negative Negative Urine Blood Negative Negative /uL Urine Nitrite Negative Negative Urine Bilirubin Negative Negative Urine Urobilinogen 3 H Negative mg/dL Urine Leukocyte Esterase Negative Negative /uL Urine RBC 1 0 - 3 /hpf Urine WBC 3 0 - 3 /hpf Urine Squamous Epithelial Cells Few <5 /hpf Urine Bacteria None seen None Seen /hpf Urine Hyaline Casts Many 0 - 2 /lpf Urine Mucus Few None Seen Urine Glucose Normal Normal mg/dL Microbiology Date/Time Source Procedure Growth Status 06/09/24 14:37 Bronchial Washings Gram Stain - Final Resulted 06/09/24 14:37 Bronchial Washings Respiratory Culture - Preliminary Resulted 06/09/24 14:30 Pleural Fluid Gram Stain - Final Resulted 06/09/24 14:30 Pleural Fluid Body Fluid Culture - Preliminary Resulted 06/08/24 18:38 Blood Blood Culture - Preliminary NO GROWTH AFTER 24 HOURS OF INCUBATION. Resulted 05/28/24 15:51 Nose MRSA Screen - Final Complete Examination: GENERAL:Abnormal (Intubated sedated), NECK:Normal, LUNGS:Abnormal (Bilateral crackles decreased breath sounds of the bases ventilated), CVS:Abnormal (Tachycardia currently on Levophed), ABDOMEN:Normal, MSK:Normal, SKIN:Abnormal (Sacral decubitus ulcer), Any Other System: (Patient currently ventilated on pressors. Sacral wound with a black eschar over the sacrum blaire suring possibly toe by 12 cm was healthy granulating bleeding tissues in the surrounding) Problem List/Assessment/Plan Problems: (1) Sepsis Assessment and Plan 63-year-old male multisystem organ failure was sacral decubitus ulcer currently febrile. Was a pneumonia. Would recommend Medihoney to the sacral decubitus ulcer daily. We will re- evaluate for possible surgical debridement in the near future. Recommend IV antibiotics for pneumonia Plan discussed with Plan discussed with: Other (Nurse) Visit Coding Surgery Date of Service if different f: Jun 10, 2024 Billing Provider: NAN JONES Jr., MD Surgery Visit Codes: 43359 - INP CONSULT <80 MIN NAN JONES Jr., MD Jun 10, 2024 16:21
[2024-06-10] MEDS: cefTRIAXone 1GM/50ML D5W 50 ML IV SCH (17:35)
[2024-06-10] MEDS: AZITHROMYCIN 500MG/ 250ML 250 ML IV SCH (17:35)
[2024-06-10] MEDS: VANCOMYCIN 1GM/250ML KIT 250 ML IV SCH (18:45)
[2024-06-10] MEDS: TPN PER PHARMACY IV NR (21:44)
--- NOTE | 2024-06-10 22:01 | DVHPN2 ---
Progress Note - Dictate Date Seen: Jun 10, 2024 Medical Necessity Reason Pt with a Central, PICC or Fol: Yes The following are medically ne: Olsen Catheter Reason for olsen catheter: Strict I&O Subjective Patient seen and examined at bedside. Intubated on mechanical ventilator. Overnight events reviewed. vital signs Vital Sign Date Time Temp Pulse Resp B/P (MAP) Pulse Ox O2 Delivery O2 Flow Rate FiO2 06/10/24 21:16 107 20 124/61 (82) 93 140/55 (83) 06/10/24 20:00 99.8 99.8 06/10/24 20:00 30 06/10/24 18:55 Mechanical Ventilator+ Total Intake and Output 06/09/24 06/09/24 06/10/24 15:00 23:00 07:00 Intake Total 1326.25 ml 1511.0 ml 1454.00 ml Output Total 1150 ml 750 ml Balance 1326.25 ml 361.0 ml 704.00 ml medications Current Medications Medications Dose Ordered Sig/Amy Route Start Time Stop Time Status Last Admin Dose Admin Digoxin 0.125 mg DAILY PO 05/19/24 10:00 06/10/24 09:26 0.125 MG Apixaban 5 mg BID PO 05/30/24 10:00 06/10/24 09:25 5 MG Potassium Chloride 100 ml @ 50 mls/hr Q2H IV 05/27/24 17:15 05/28/24 01:14 UNV Amino Acids 0 ml @ 0 mls/hr PER PHARMACY IV 05/30/24 12:00 Diagnostic Test (Pha) 1 strip Q6HR 05/30/24 18:00 06/10/24 18:38 1 STRIP Insulin Human Regular FOLLOW SLIDING SCALE Q6HR SC 05/30/24 18:00 06/03/24 11:36 2 UNITS Dextrose 50 ml UD IV 05/30/24 12:15 Acetaminophen 650 mg Q6HP PRN PO 05/31/24 19:30 06/10/24 14:37 650 MG Norepinephrine Bitartrate 250 ml @ 3.75 mls/hr Q24H IV 06/04/24 10:30 06/09/24 04:06 22.5 MLS/HR Fentanyl Citrate 250 ml @ 2.5 mls/hr Q24H IV 06/06/24 12:45 06/10/24 05:29 5 MLS/HR Dexmedetomidine HCl 400 mcg/ Dextrose 100 ml @ 4.21 mls/hr [id number] IV 06/06/24 12:45 06/10/24 07:30 4.21 MLS/HR Spironolactone 25 mg DAILY GT 06/08/24 11:00 06/10/24 09:25 25 MG Midazolam HCl 50 ml @ 1 mls/hr Q24H IV 06/08/24 20:15 06/09/24 11:43 1 MLS/HR Dextrose/Sodium Chloride 1,000 ml @ 100 mls/hr Q10H IV 06/09/24 08:00 06/10/24 15:07 100 MLS/HR Fat Emulsion Intravenous 100 ml/Potassium Phosphate 44 meq/ Magnesium Sulfate 22 meq/ Multivitamins 10 ml/Amino Acids/ Dextrose 1,475.5 ml @ 61 mls/hr [id number] IV 06/09/24 22:00 06/10/24 21:59 06/09/24 21:28 61 MLS/HR Fat Emulsion Intravenous 100 ml/Potassium Phosphate 66 meq/ Magnesium Sulfate 22 meq/ Multivitamins 10 ml/Chromium/ Copper/Manganese/ Zinc 1 ml/Amino Acids/Dextrose 1,481.5 ml @ 62 mls/hr [id number] IV 06/10/24 22:00 06/11/24 21:59 Ceftriaxone Sodium 50 ml @ 100 mls/hr DAILY@09 IV 06/10/24 15:30 06/10/24 17:35 100 MLS/HR Azithromycin 250 ml @ 125 mls/hr DAILY IV 06/10/24 15:30 06/10/24 17:35 125 MLS/HR Vancomycin HCl 250 ml @ 250 mls/hr DAILY IV 06/10/24 17:30 06/10/24 18:45 250 MLS/HR objective Gen.: Patient lying in bed in medical ICU. Intubated on mechanical ventilator. Head: Normocephalic, atraumatic. Eyes: PERRLA. Ears: Normal external anatomy. Throat: Endotracheal tube and orogastric tube in place. Neck: Supple, trachea midline. Chest: Transmitted breath sounds bilaterally. Decreased air entry bilaterally. No wheezing. Bibasilar crackles. Cardio vascular: Positive S1, positive S2. Regular rate and rhythm. Abdomen: Positive bowel sounds in all 4 quadrants. Soft, nontender, nondistended. : Olsen in place. Normal external genitalia. Rectal: Deferred Skin: Warm, dry. Intact. Extremities: 2+ radial pulses bilaterally. No lower extremity edema. Neuro: Off sedation laboratory and microbiology Laboratory Tests 06/10/24 04:42 06/09/24 05:05 Test 06/10/24 04:42 Range/Units Serum Glucose 105 74-106 mg/dL Assessment/Plan Impression: Acute hypoxic respiratory failure Mechanical ventilator Pleural effusion, right Atelectasis CHF exacerbation Pulmonary embolism Obesity with a BMI of 30.1 Pneumonia, likely gram negative Sacral wound Events: Remains on vent support Changed AC settings due to air hunger. On assist control with respiratory rate of 22 -->16, tidal volume 450 -->600, PEEP of 8, FiO2 at 30%. Pt displaying signs of air hunger. Off sedation On Fentanyl Precedex drip for agitation Obtain ABG in 1 hour. CXR demonstrates ET tube in place. Trace bilateral pleural effusions and patchy bilateral opacities similar to prior. Sputum cultures from BAL grew Staphylococcus aureus. On pressors (Levophed) for hemodynamic support Titrate to keep MAP above 65 mmHg/SBP above 90 mmHg. Continue antibiotics On Eliquis for PE TPN for nutritional support Monitor renal function Monitor electrolytes. Supplement as necessary. On IV fluids at 100 mL/hr. Surgery recs appreciated. Plan for debridement Wound care SBT/BAM. Poor prognosis Recommend Trach/PEG for liberation from vent. 06/09/24 - S/p bronchoscopy - removed copious secretions from L1-L10 06/09/24 - S/p right thoracentesis - 550 ml joycelyn fluid removed from right pleural space. 06/05/24 - S/p left thoracentesis on 950 mL's of joycelyn colored fluid removed from left pleural space. 06/03/24 - S/p bronchoscopy - cleared mucous plugging from L6-L10, L1-L5 and R1- R3 06/03/24 - S/p right thoracentesis - 1700 mL of serosanguineous fluid removed from R pleural space. S/p bronchoscopy w/ RML BAL on 05/28/24 - Cleared bloody secretions from L1-L10 and R1-R10 S/p cardioversion on 05/27/24 Labs and imaging reviewed. Rest of plan as noted below. Plan: s/p intubation on mechanical ventilator Status post right thoracentesis with removal of 2200 mL ABG reviewed. Alkalemia due to contraction alkalosis. Hypoxemia with a PO2 of 42 mmHg. Patient was emergently intubated and placed on mechanical ventilation. Currently on assist control with respiratory rate of 16, tidal volume 600, PEEP of 8, FiO2 at 30%. Titrate FIO2 to keep O2 saturation above 92%. VAP bundle Daily ABG and CXR while intubated. Off sedation On pressors for hemodynamic support. Titrate to keep MAP above 65 mmHg/SBP above 90 mmHg. Completed antibiotics. F/u cultures. Pleural fluid cultures showed no growth Monitor renal function due to Acute kidney injury. Monitor electrolytes. Supplement as necessary. Monitor ins and outs Maintain euvolemia Cardiology recommendations appreciated. Nutritional support. Accu-Cheks, ISS. GI/DVT prophylaxis. Condition: Critical Prognosis: Poor given multiple comorbidities. Rest of plan per hospitalist and other consultants. A total of 35 minutes of critical care time was spent reviewing the patient record, examining the patient, making a diagnostic and therapeutic plan, discussing this plan with the medical personnel, following up on diagnostic studies and following the patient for clinical stability excluding any and all procedures. At least 50% of this time was spent in direct, [id number] contact. Thank you Dr. Conn for allowing me to participate in this patient's care. Further recommendations will depend on patient's clinical course. Please do not hesitate to contact me if you have any questions or concerns. This medical document was created using an electronic medical record system with [employer] dictation system. Although this document has been carefully reviewed, there may still be some phonetic and typographical errors. These areas are purely typographical due to imperfections of the software programs, and do not reflect any compromise in the patient's medical care. Dietary Evaluation Review Comments: 1. consider Renal Specific 70g protein restriction witn 2GNa, 3K, low Phos, if no diaylsis needed. 2. consider Renal Standard 2gn, 3K, low phosphate diet if Pt is on dialysis. 3. encourage and monitor po intake to meet 75% of his needs. Expected Outcomes/Goals: avoid uremic symptoms, gradual healed wounds. Plan discussed with: Other (CALEB Erazo) Critical Care Time(min): 35 BOGDAN MANN MD Jun 10, 2024 22:01
[2024-06-11] VITALS (108 sets, daily range): BP systolic 68–176; BP diastolic 29–98; PULSE 77–108; RESP 9–26; TEMP 98.5–101.1; O2SAT 89–100
[2024-06-11 05:08] LABS: Basophils # (auto) 0.1 10 ^3/uL (0-0.2); Basophils % (auto) 0.8 % (0.0-2.0); Eosinophils # (auto) 0.1 10 ^3/uL (0-0.8); Eosinophils % (auto) 0.9 % (0.0-7.0); Hematocrit 32.6 % (41.0-53.0); Hemoglobin 10.5 g/dL (13.5-17.5); Lymphocytes # (auto) 0.4 10 ^3/uL (0.4-5.4); Lymphocytes % (auto) 4.2 % (10.0-50.0); Mean Corpuscular Hemoglobin 26.9 pg (28.0-32.0); Mean Corpuscular Hgb Conc. 32.2 g/dL (32.0-36.0); Mean Corpuscular Volume 83.5 fL (80.0-100.0); Monocytes # (auto) 0.4 10 ^3/uL (0-1.3); Monocytes % (auto) 4.2 % (0.0-12.0); Neutrophils # (auto) 9.6 10 ^3/uL (1.6-8.6); Neutrophils % (auto) 89.9 % (37.0-80.0); Platelet Count (auto) 255 10^3/uL (140-450); Red Cell Distribution Width 17.4 % (11.8-14.3); White Blood Cell 10.7 10^3/uL (4.4-10.8)
[2024-06-11 05:23] LABS: Anion Gap 4 (5-15); Carbon Dioxide 30 mmol/L (20-31); Magnesium 2.3 mg/dL (1.6-2.6); Phosphorus 3.1 mg/dL (2.4-5.1); Potassium 3.9 mmol/L (3.5-5.1); Sodium 143 mmol/L (136-145)
--- NOTE | 2024-06-11 05:24 | DVH ---
CHEST RADIOGRAPH Indication: vented Technique: Single frontal view of the chest was obtained COMPARISON: XY CHEST PORTABLE on DOS: 06/10/24, XY CHEST PORTABLE on DOS: 06/09/24, XY CHEST PORTABLE o n DOS: 06/09/24, XY CHEST PORTABLE on DOS: 06/08/24, XY CHEST PORTABLE on DOS: 06/07/24 FINDINGS: Lines and Tubes: Endotracheal tube, left central venous catheter and enteric catheter in satisfactory position. Lungs: Multifocal airspace disease. Pleura: No effusion. Interval development of large right pneumothorax. Cardiomediastinal contours: Unremarkable Bones: Unremarkable IMPRESSION: Interval development of large right pneumothorax. Critical Result: Pneumothorax Findings discussed with CHIEF RECORDISTCALEB soto at 06/11/2024 05:20 AM, and acknowledged receipt and underst anding of the findings.
[2024-06-11 05:27] LABS: Alanine Aminotransferase 408 U/L (7-40); Albumin 2.2 g/dL (3.2-4.8); Alkaline Phosphatase 277 U/L (46-116); Aspartate Aminotransferase 566 U/L (13-40); Bilirubin, Total 5.5 mg/dL (0.2-1.0); Blood Urea Nitrogen 36 mg/dL (9-23); Calcium 8.4 mg/dL (8.7-10.4); Chloride 109 mmol/L (98-107); Glucose 128 mg/dL (74-106); Total Protein 5.1 g/dL (5.7-8.2)
--- NOTE | 2024-06-11 07:40 | DVH ---
CHEST RADIOGRAPH Indication: S/P CHEST TUBE PLACEMENT Technique: Single frontal view of the chest was obtained Comparison: XY CHEST XRAY 1 VIEW on DOS: Earlier same date, 4:59 a.m. FINDINGS: Lines and Tubes: The endotracheal tube terminates 7.8 cm above the fredo. Left central venous isabelle ter terminates in the superior vena cava. The enteric tube courses below the left hemidiaphragm and t he tip extends outside the field of view. Interval placement of a right chest tube. Lungs: Right upper, middle and lower lobe lung collapse similar to prior study. Hazy left lung opacit ies. Pleura: No effusion. Large right pneumothorax is similar to the prior study. Cardiomediastinal contours: Stable. Bones: No acute osseous abnormality. IMPRESSION: 1. Interval placement of a right chest tube. Large right pneumothorax is unchanged. No significant r e-expansion of the lung time. 2. Additional findings similar to prior chest radiograph performed earlier same date.
[2024-06-11 07:53] LABS: Base Excess 1.9 mmol/L (-2.0-3.0)
--- NOTE | 2024-06-11 10:32 | DVH ---
EXAM: XY CHEST PORTABLE Indication: repeat xray due to large right pneumothorax Technique: Single frontal view of the chest was obtained Comparison: XY CHEST PORTABLE on DOS: 06/11/24, XY CHEST XRAY 1 VIEW on DOS: 06/11/24, XY CHEST PORTABL E on DOS: 06/10/24, XY CHEST PORTABLE on DOS: 06/09/24, XY CHEST PORTABLE on DOS: 06/09/24, XY CHEST POR TABLE on DOS: 06/11/24 FINDINGS: Lines and Tubes: The endotracheal tube terminates 7.8 cm above the fredo. Left central venous isabelle ter terminates in the superior vena cava. The enteric tube courses below the left hemidiaphragm and t he tip extends outside the field of view. Right chest tube is visualized. Lungs: Right upper, middle and lower lobe lung collapse similar to prior study. Hazy left lung opacit ies. Pleura: No effusion. Large right pneumothorax is similar to the prior study. Cardiomediastinal contours: Stable. Bones: No acute osseous abnormality. IMPRESSION: Large right pneumothorax is unchanged. Right chest tube is visualized.
--- NOTE | 2024-06-11 12:33 | DVHPN2 ---
Progress Note - Dictate Date Seen: Jun 11, 2024 Medical Necessity Reason Pt with a Central, PICC or Fol: Yes The following are medically ne: Olsen Catheter Reason for olsen catheter: Strict I&O Subjective PT WITH SS COMPLEX INCRESEING SOB HARVEY LE EDEMA HFrEF CHRONIC AND ACUTE NOW WITH HEMOPTYSIS TACHYCARDIA CTA LUNG C/W PE ACUTE vital signs Vital Sign Date Time Temp Pulse Resp B/P (MAP) Pulse Ox O2 Delivery O2 Flow Rate FiO2 06/11/24 11:45 84 17 120/52 (74) 98 60 06/11/24 04:00 99.4 99.4 06/11/24 02:00 Mechanical Ventilator+ Total Intake and Output 06/10/24 06/10/24 06/11/24 15:00 23:00 07:00 Intake Total 1346.945 ml 1278.25 ml 1382.75 ml Output Total 900 ml 625 ml Balance 1346.945 ml 378.25 ml 757.75 ml medications Current Medications Medications Dose Ordered Sig/Amy Route Start Time Stop Time Status Last Admin Dose Admin Digoxin 0.125 mg DAILY PO 05/19/24 10:00 06/11/24 10:48 0.125 MG Apixaban 5 mg BID PO 05/30/24 10:00 06/10/24 21:39 5 MG Potassium Chloride 100 ml @ 50 mls/hr Q2H IV 05/27/24 17:15 05/28/24 01:14 UNV Amino Acids 0 ml @ 0 mls/hr PER PHARMACY IV 05/30/24 12:00 Diagnostic Test (Pha) 1 strip Q6HR 05/30/24 18:00 06/11/24 06:12 1 STRIP Insulin Human Regular FOLLOW SLIDING SCALE Q6HR SC 05/30/24 18:00 06/03/24 11:36 2 UNITS Dextrose 50 ml UD IV 05/30/24 12:15 Acetaminophen 650 mg Q6HP PRN PO 05/31/24 19:30 06/10/24 14:37 650 MG Norepinephrine Bitartrate 250 ml @ 3.75 mls/hr Q24H IV 06/04/24 10:30 06/10/24 22:35 11.25 MLS/HR Fentanyl Citrate 250 ml @ 2.5 mls/hr Q24H IV 06/06/24 12:45 06/11/24 00:42 25 MLS/HR Dexmedetomidine HCl 400 mcg/ Dextrose 100 ml @ 4.21 mls/hr [id number] IV 06/06/24 12:45 06/10/24 07:30 4.21 MLS/HR Spironolactone 25 mg DAILY GT 06/08/24 11:00 06/11/24 10:48 25 MG Midazolam HCl 50 ml @ 1 mls/hr Q24H IV 06/08/24 20:15 06/09/24 11:43 1 MLS/HR Dextrose/Sodium Chloride 1,000 ml @ 100 mls/hr Q10H IV 06/09/24 08:00 06/11/24 06:12 100 MLS/HR Fat Emulsion Intravenous 100 ml/Potassium Phosphate 66 meq/ Magnesium Sulfate 22 meq/ Multivitamins 10 ml/Chromium/ Copper/Manganese/ Zinc 1 ml/Amino Acids/Dextrose 1,481.5 ml @ 62 mls/hr [id number] IV 06/10/24 22:00 06/11/24 21:59 06/10/24 21:44 62 MLS/HR Ceftriaxone Sodium 50 ml @ 100 mls/hr DAILY@09 IV 06/10/24 15:30 06/11/24 10:36 100 MLS/HR Azithromycin 250 ml @ 125 mls/hr DAILY IV 06/10/24 15:30 06/11/24 10:39 125 MLS/HR Vancomycin HCl 250 ml @ 250 mls/hr DAILY IV 06/10/24 17:30 06/11/24 10:40 250 MLS/HR objective PUL DIFF RHONCHI JVD ANGLE OF THE JAW CV RR PMI DIFFUSE EXT 3+ EDEMA laboratory and microbiology Laboratory Tests 06/11/24 04:40 Test 06/11/24 04:40 Range/Units Serum Glucose 128 H 74-106 mg/dL Problem List SS COMPLEX INCRESEING SOB HARVEY LE EDEMA HFrEF CHRONIC AND ACUTE EF < 20% NOW WITH HEMOPTYSIS TACHYCARDIA CTA LUNG C/W PE 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 Large filling defect right pulmonary artery consistent with pulmonary embolus. No film findings of pulmonary artery hypertension. No pulmonary emboli noted on the left. 2. Findings are also suggestive of right heart strain. 3. Large right pleural effusion. HEPARIN DRIP\ LASIX DRIP WILL START ORAL ANTICOAGULATION IN 48 HOURS ABX LE ARTERIAL DOPPLER NO SIGNIFICANT DISEASE FOR LIMB RISK DC HEPARIN START ELIQUIS S/P CT HEAD CURRENTLY ON BiPAP IMPROVING RESP STATUS 7.32/59/69 TITRATE BIPAP THORACENTESIS ULTRASOUND GUIDED MRI OF ABD S/P THORACENTESIS 2200 CC DRAINED CXR BILATERAL INFILTRATE PROMINENT MEDIASTINUM CARDIOMEGALY HYPOKALEMIA BEING CORRECTED A FLUTTER S/P CARDIOVERSION SINUS RHYTHM TITRATE OFF LEVOPHED USE ALBUMIN FOR PRESSURE SUPORT DC LASIX DRIP START D5 1/4 NS AT 125 CC/HR BMP/ BNP DAILY cont volume replacement contraction alkalosis leukocytosis improved monitor h/h HYPERNATREMIA IMPROVING DIAMOX X 1 DOSE HYPERNATREMIA CORRECTED DC IV FLUID CONT TPN INCREASE VENT SETTING TO AC 22 EPISODE OF VT CORRECT ACIDOSIS MAG SO4 2 G TITRATE OFF LEVOPHED DIAMOX TREAT METABOLIC ALKALOSIS RESP ACIDOSIS START TITRATING OFF SEDATION IMPROVED RESP PARAMETERS LIVER ENZYMES STILL ELEVATED wean off sedation CORRECT HYPERNATREMIA CHECK BNP AICD IMPLANTATION PT DEVELOPED PNEUMOTHORAX DELAYING EXTUBATION Dietary Evaluation Review Comments: 1. consider Renal Specific 70g protein restriction witn 2GNa, 3K, low Phos, if no diaylsis needed. 2. consider Renal Standard 2gn, 3K, low phosphate diet if Pt is on dialysis. 3. encourage and monitor po intake to meet 75% of his needs. Expected Outcomes/Goals: avoid uremic symptoms, gradual healed wounds. Plan discussed with: Other Critical Care Time(min): 35 ISSAC SHAH MD Jun 11, 2024 12:33
--- NOTE | 2024-06-11 12:36 | MEDREC ---
[facility] Intervention Section I [facility] Intervention: Review courses of therapy (EMPIRICAL TREATMENT FOR HAP: CEFEPIME + VANCOMYCIN) RAVEN SILVEIRA PHARMACIST Jun 11, 2024 12:36
--- NOTE | 2024-06-11 12:39 | DVH ---
CHEST RADIOGRAPH Indication: rechecking of large pneumothorax Technique: Single frontal view of the chest was obtained COMPARISON: XY CHEST PORTABLE on DOS: 06/11/24, XY CHEST PORTABLE on DOS: 06/11/24, XY CHEST XRAY 1 VIE W on DOS: 06/11/24, XY CHEST PORTABLE on DOS: 06/10/24, XY CHEST PORTABLE on DOS: 06/09/24 FINDINGS: Lines and Tubes: Endotracheal tube, enteric catheter and left central venous catheter in satisfactory position. Interval placement of right chest tubes in satisfactory position. Lungs: Multifocal airspace disease. Pleura: No effusion. Moderate right pneumothorax. Cardiomediastinal contours: Unremarkable Bones: Unremarkable IMPRESSION: Moderate right pneumothorax with chest tubes in satisfactory position.
--- NOTE | 2024-06-11 14:53 | DVH ---
CHEST RADIOGRAPH Indication: rechecking pneumothorax Technique: Single frontal view of the chest was obtained COMPARISON: XY CHEST PORTABLE on DOS: 06/11/24, XY CHEST PORTABLE on DOS: 06/11/24, XY CHEST PORTABLE o n DOS: 06/11/24, XY CHEST XRAY 1 VIEW on DOS: 06/11/24, XY CHEST PORTABLE on DOS: 06/10/24 FINDINGS: 2 right chest thoracostomy tubes are re-identified. There is a small residual pneumothorax in the rig ht lung apex, and residual pneumothorax accumulating inferiorly. There are infiltrates in the right l camron base, improved since prior chest x-ray. There is opacification of the left lung base obscuring th e left hemidiaphragm, stable. Left mid lung infiltrate is improved. NG tube and left subclavian centr al line are re-identified. The heart is enlarged. IMPRESSION: 1. Small to moderate residual right pneumothorax with [address] 2. Bilateral mid to lower lung infiltrates are improved since earlier chest x-ray. 3. Cardiomegaly.
[2024-06-11] MEDS: NOREPINEPHRINE BITARTRATE 32 MG in SODIUM CHL 0.9% 218 ML IV SCH (18:02)
[2024-06-11] MEDS ORDERED: VANCOMYCIN PER PHARMACY 0 MG IV SCH ×2 (18:30→18:45)
[2024-06-11] MEDS: VANCOMYCIN 1GM/250ML KIT 250 ML IV SCH (18:53)
--- NOTE | 2024-06-11 20:52 | DVHPN2 ---
Progress Note - Dictate Date Seen: Jun 11, 2024 Medical Necessity Reason Pt with a Central, PICC or Fol: Yes The following are medically ne: Olsen Catheter Reason for olsen catheter: Strict I&O Subjective Patient seen and examined at bedside. Sedated, intubated on mechanical ventilator. Overnight events reviewed. vital signs Vital Sign Date Time Temp Pulse Resp B/P (MAP) Pulse Ox O2 Delivery O2 Flow Rate FiO2 06/11/24 20:15 77 16 100/36 (57) 100 113/42 (65) 06/11/24 20:00 98.5 98.5 06/11/24 18:32 40 06/11/24 18:32 Mechanical Ventilator Total Intake and Output 06/10/24 06/10/24 06/11/24 15:00 23:00 07:00 Intake Total 1346.945 ml 1278.25 ml 1568.50 ml Output Total 900 ml 625 ml Balance 1346.945 ml 378.25 ml 943.50 ml medications Current Medications Medications Dose Ordered Sig/Amy Route Start Time Stop Time Status Last Admin Dose Admin Digoxin 0.125 mg DAILY PO 05/19/24 10:00 06/11/24 10:48 0.125 MG Apixaban 5 mg BID PO 05/30/24 10:00 06/11/24 15:15 5 MG Potassium Chloride 100 ml @ 50 mls/hr Q2H IV 05/27/24 17:15 05/28/24 01:14 UNV Amino Acids 0 ml @ 0 mls/hr PER PHARMACY IV 05/30/24 12:00 Diagnostic Test (Pha) 1 strip Q6HR 05/30/24 18:00 06/11/24 18:32 1 STRIP Insulin Human Regular FOLLOW SLIDING SCALE Q6HR SC 05/30/24 18:00 06/11/24 18:33 2 UNITS Dextrose 50 ml UD IV 05/30/24 12:15 Acetaminophen 650 mg Q6HP PRN PO 05/31/24 19:30 06/10/24 14:37 650 MG Fentanyl Citrate 250 ml @ 2.5 mls/hr Q24H IV 06/06/24 12:45 06/11/24 12:30 12.5 MLS/HR Dexmedetomidine HCl 400 mcg/ Dextrose 100 ml @ 4.21 mls/hr [id number] IV 06/06/24 12:45 06/10/24 07:30 4.21 MLS/HR Spironolactone 25 mg DAILY GT 06/08/24 11:00 06/11/24 10:48 25 MG Midazolam HCl 50 ml @ 1 mls/hr Q24H IV 06/08/24 20:15 06/11/24 15:15 2 MLS/HR Dextrose/Sodium Chloride 1,000 ml @ 100 mls/hr Q10H IV 06/09/24 08:00 06/11/24 18:02 100 MLS/HR Fat Emulsion Intravenous 100 ml/Potassium Phosphate 66 meq/ Magnesium Sulfate 22 meq/ Multivitamins 10 ml/Chromium/ Copper/Manganese/ Zinc 1 ml/Amino Acids/Dextrose 1,481.5 ml @ 62 mls/hr [id number] IV 06/10/24 22:00 06/11/24 21:59 06/10/24 21:44 62 MLS/HR Ceftriaxone Sodium 50 ml @ 100 mls/hr DAILY@09 IV 06/10/24 15:30 06/11/24 10:36 100 MLS/HR Azithromycin 250 ml @ 125 mls/hr DAILY IV 06/10/24 15:30 06/11/24 10:39 125 MLS/HR Fat Emulsion Intravenous 100 ml/Potassium Phosphate 60 meq/ Magnesium Sulfate 20 meq/ Multivitamins 10 ml/Amino Acids/ Dextrose 1,378.6364 ml @ 57 mls/hr [id number] IV 06/11/24 22:00 06/12/24 21:59 Norepinephrine Bitartrate 32 mg/ Sodium Chloride 250 ml @ 0.938 mls/ hr Q24H IV 06/11/24 15:30 06/11/24 18:02 4.688 MLS/HR Vancomycin HCl 250 ml @ 250 mls/hr Q8HR@0200,1000,1800 IV 06/11/24 19:00 06/11/24 18:53 250 MLS/HR Vancomycin HCl 0 ml @ 0 mls/hr UD IV 06/11/24 18:45 objective Gen.: Patient lying in bed in medical ICU. Sedated, intubated on mechanical ventilator. Head: Normocephalic, atraumatic. Eyes: PERRLA. Ears: Normal external anatomy. Throat: Endotracheal tube and orogastric tube in place. Neck: Supple, trachea midline. Chest: Transmitted breath sounds bilaterally. Decreased air entry bilaterally. No wheezing. Bibasilar crackles. Cardio vascular: Positive S1, positive S2. Regular rate and rhythm. Abdomen: Positive bowel sounds in all 4 quadrants. Soft, nontender, nondistended. : Olsen in place. Normal external genitalia. Rectal: Deferred Skin: Warm, dry. Intact. Extremities: 2+ radial pulses bilaterally. No lower extremity edema. Neuro: Sedated laboratory and microbiology Laboratory Tests 06/11/24 04:40 Test 06/11/24 04:40 Range/Units Serum Glucose 128 H 74-106 mg/dL Assessment/Plan Impression: Acute hypoxic respiratory failure Mechanical ventilator Pleural effusion, right Atelectasis CHF exacerbation Pulmonary embolism Obesity with a BMI of 30.1 Pneumonia, likely gram negative Sacral wound Events: Patient was noted to have right pneumothorax Underwent emergent placement of right chest tube by ED physician. Remains on vent support On assist control with respiratory rate of 16, tidal volume 600, PEEP of 8 -->5, FiO2 at 30 -->60%. On Versed for sedation On Fentanyl for analgesia ABG notable for acidemia On pressors (Levophed 2 mcg/min) for hemodynamic support Titrate to keep MAP above 65 mmHg/SBP above 90 mmHg. Patient underwent second chest tube placement. Continue antibiotics On Eliquis for PE TPN for nutritional support Monitor renal function Monitor electrolytes. Supplement as necessary. On IV fluids at 100 mL/hr. Surgery recs appreciated. Plan for debridement Wound care SBT/BAM. Poor prognosis Recommend Trach/PEG for liberation from vent. 06/09/24 - S/p bronchoscopy - removed copious secretions from L1-L10 06/09/24 - S/p right thoracentesis - 550 ml joycelyn fluid removed from right pleural space. 06/05/24 - S/p left thoracentesis on 950 mL's of joycelyn colored fluid removed from left pleural space. 06/03/24 - S/p bronchoscopy - cleared mucous plugging from L6-L10, L1-L5 and R1- R3 06/03/24 - S/p right thoracentesis - 1700 mL of serosanguineous fluid removed from R pleural space. S/p bronchoscopy w/ RML BAL on 05/28/24 - Cleared bloody secretions from L1-L10 and R1-R10 S/p cardioversion on 05/27/24 Labs and imaging reviewed. Rest of plan as noted below. Plan: s/p intubation on mechanical ventilator Status post right thoracentesis with removal of 2200 mL ABG reviewed. Alkalemia due to contraction alkalosis. Hypoxemia with a PO2 of 42 mmHg. Patient was emergently intubated and placed on mechanical ventilation. Currently on assist control with respiratory rate of 16, tidal volume 600, PEEP of 5, FiO2 at 60%. Titrate FIO2 to keep O2 saturation above 92%. VAP bundle Daily ABG and CXR while intubated. Sedated for vent synchrony On pressors for hemodynamic support. Titrate to keep MAP above 65 mmHg/SBP above 90 mmHg. Continue antibiotics F/u cultures. Sputum cultures from BAL grew Staphylococcus aureus. Monitor renal function due to Acute kidney injury. Monitor electrolytes. Supplement as necessary. Monitor ins and outs Maintain euvolemia Cardiology recommendations appreciated. Nutritional support. Accu-Cheks, ISS. GI/DVT prophylaxis. Condition: Critical Prognosis: Poor given multiple comorbidities. Rest of plan per hospitalist and other consultants. A total of 35 minutes of critical care time was spent reviewing the patient record, examining the patient, making a diagnostic and therapeutic plan, discussing this plan with the medical personnel, following up on diagnostic studies and following the patient for clinical stability excluding any and all procedures. At least 50% of this time was spent in direct, [id number] contact. Thank you Dr. Conn for allowing me to participate in this patient's care. Further recommendations will depend on patient's clinical course. Please do not hesitate to contact me if you have any questions or concerns. This medical document was created using an electronic medical record system with [employer] dictation system. Although this document has been carefully reviewed, there may still be some phonetic and typographical errors. These areas are purely typographical due to imperfections of the software programs, and do not reflect any compromise in the patient's medical care. Dietary Evaluation Review Comments: 1. consider Renal Specific 70g protein restriction witn 2GNa, 3K, low Phos, if no diaylsis needed. 2. consider Renal Standard 2gn, 3K, low phosphate diet if Pt is on dialysis. 3. encourage and monitor po intake to meet 75% of his needs. Expected Outcomes/Goals: avoid uremic symptoms, gradual healed wounds. Plan discussed with: Other (CALEB Erazo) Critical Care Time(min): 35 BOGDAN MANN MD Jun 11, 2024 20:52
[2024-06-11] MEDS: TPN PER PHARMACY IV NR (22:08)
[2024-06-12] VITALS (111 sets, daily range): BP systolic 38–146; BP diastolic 17–57; PULSE 76–143; RESP 11–26; TEMP 97.7–99.8; O2SAT 92–100
--- NOTE | 2024-06-12 05:13 | DVH ---
CHEST RADIOGRAPH Indication: RT PNEUMOTHORAX Technique: Single frontal view of the chest was obtained Comparison: XY CHEST PORTABLE on DOS: 06/11/24 FINDINGS: Lines and Tubes: Right pigtail catheter and right chest tube are unchanged. The enteric tube courses below the left hemidiaphragm and the tip extends outside the field of view. The endotracheal tube ter minates 7.0 cm above the fredo. Left central venous catheter terminates in the superior vena cava. Lungs: Bilateral airspace disease similar to prior study. Pleura: Bilateral pleural effusions. Trace right apical pneumothorax, unchanged. Cardiomediastinal contours: Stable cardiomegaly. Bones: No acute osseous abnormality. IMPRESSION: 1. Lines and tubes are unchanged in position. 2. Stable trace right apical pneumothorax. 3. Stable bilateral airspace disease and pleural effusions.
[2024-06-12 05:16] LABS: Basophils # (auto) 0.1 10 ^3/uL (0-0.2); Hemoglobin 8.8 g/dL (13.5-17.5); Neutrophils # (auto) 10.2 10 ^3/uL (1.6-8.6); Red Cell Distribution Width 17.3 % (11.8-14.3)
[2024-06-12 05:17] LABS: Basophils % (auto) 0.5 % (0.0-2.0); Eosinophils # (auto) 0.6 10 ^3/uL (0-0.8); Eosinophils % (auto) 4.9 % (0.0-7.0); Hematocrit 27.3 % (41.0-53.0); Lymphocytes # (auto) 0.6 10 ^3/uL (0.4-5.4); Lymphocytes % (auto) 4.6 % (10.0-50.0); Mean Corpuscular Hemoglobin 26.9 pg (28.0-32.0); Mean Corpuscular Hgb Conc. 32.2 g/dL (32.0-36.0); Mean Corpuscular Volume 83.6 fL (80.0-100.0); Monocytes # (auto) 0.9 10 ^3/uL (0-1.3); Monocytes % (auto) 7.1 % (0.0-12.0); Neutrophils % (auto) 82.9 % (37.0-80.0); Platelet Count (auto) 269 10^3/uL (140-450); Red Blood Cells 3.26 10^6/uL (4.5-5.90); White Blood Cell 12.3 10^3/uL (4.4-10.8)
[2024-06-12 05:37] LABS: Anion Gap 2 (5-15); BUN/Creatinine Ratio 93.9 (10.0-20.0); Carbon Dioxide 30 mmol/L (20-31); Magnesium 2.2 mg/dL (1.6-2.6); Sodium 142 mmol/L (136-145)
[2024-06-12 05:48] LABS: Alanine Aminotransferase 234 U/L (7-40); Alkaline Phosphatase 185 U/L (46-116); Aspartate Aminotransferase 195 U/L (13-40); Bilirubin, Total 4.1 mg/dL (0.2-1.0); Blood Urea Nitrogen 31 mg/dL (9-23); Calcium 8.1 mg/dL (8.7-10.4); Chloride 110 mmol/L (98-107); Glucose 112 mg/dL (74-106); Total Protein 4.3 g/dL (5.7-8.2)
[2024-06-12 05:49] LABS: Albumin 1.9 g/dL (3.2-4.8)
[2024-06-12 08:12] LABS: Base Excess 0.1 mmol/L (-2.0-3.0)
--- NOTE | 2024-06-12 12:40 | DVHPN2 ---
Progress Note - Dictate Date Seen: Jun 12, 2024 Medical Necessity Reason Pt with a Central, PICC or Fol: Yes The following are medically ne: Olsen Catheter Reason for olsen catheter: Strict I&O Subjective PT WITH SS COMPLEX INCRESEING SOB HARVEY LE EDEMA HFrEF CHRONIC AND ACUTE NOW WITH HEMOPTYSIS TACHYCARDIA CTA LUNG C/W PE ACUTE vital signs Vital Sign Date Time Temp Pulse Resp B/P (MAP) Pulse Ox O2 Delivery O2 Flow Rate FiO2 06/12/24 12:01 84 17 101/43 (62) 98 30 06/12/24 12:00 98.9 98.9 06/12/24 11:46 Mechanical Ventilator+ Total Intake and Output 06/11/24 06/11/24 06/12/24 15:00 23:00 07:00 Intake Total 2101.50 ml 1418.125 ml 1709.500 ml Output Total 1250 ml 1080 ml Balance 2101.50 ml 168.125 ml 629.500 ml medications Current Medications Medications Dose Ordered Sig/Amy Route Start Time Stop Time Status Last Admin Dose Admin Digoxin 0.125 mg DAILY PO 05/19/24 10:00 06/12/24 09:15 0.125 MG Apixaban 5 mg BID PO 05/30/24 10:00 06/12/24 09:15 5 MG Potassium Chloride 100 ml @ 50 mls/hr Q2H IV 05/27/24 17:15 05/28/24 01:14 UNV Amino Acids 0 ml @ 0 mls/hr PER PHARMACY IV 05/30/24 12:00 Diagnostic Test (Pha) 1 strip Q6HR 05/30/24 18:00 06/12/24 11:24 1 STRIP Insulin Human Regular FOLLOW SLIDING SCALE Q6HR SC 05/30/24 18:00 06/11/24 18:33 2 UNITS Dextrose 50 ml UD IV 05/30/24 12:15 Acetaminophen 650 mg Q6HP PRN PO 05/31/24 19:30 06/10/24 14:37 650 MG Fentanyl Citrate 250 ml @ 2.5 mls/hr Q24H IV 06/06/24 12:45 06/12/24 08:49 12.5 MLS/HR Dexmedetomidine HCl 400 mcg/ Dextrose 100 ml @ 4.21 mls/hr [id number] IV 06/06/24 12:45 06/10/24 07:30 4.21 MLS/HR Spironolactone 25 mg DAILY GT 06/08/24 11:00 06/12/24 09:15 25 MG Midazolam HCl 50 ml @ 1 mls/hr Q24H IV 06/08/24 20:15 06/11/24 15:15 2 MLS/HR Dextrose/Sodium Chloride 1,000 ml @ 100 mls/hr Q10H IV 06/09/24 08:00 06/12/24 03:56 100 MLS/HR Ceftriaxone Sodium 50 ml @ 100 mls/hr DAILY@09 IV 06/10/24 15:30 06/12/24 08:44 100 MLS/HR Azithromycin 250 ml @ 125 mls/hr DAILY IV 06/10/24 15:30 06/12/24 11:03 125 MLS/HR Fat Emulsion Intravenous 100 ml/Potassium Phosphate 60 meq/ Magnesium Sulfate 20 meq/ Multivitamins 10 ml/Amino Acids/ Dextrose 1,378.6364 ml @ 57 mls/hr [id number] IV 06/11/24 22:00 06/12/24 21:59 06/11/24 22:08 57 MLS/HR Norepinephrine Bitartrate 32 mg/ Sodium Chloride 250 ml @ 0.938 mls/ hr Q24H IV 06/11/24 15:30 06/11/24 18:02 4.688 MLS/HR Vancomycin HCl 250 ml @ 250 mls/hr Q8HR@0200,1000,1800 IV 06/11/24 19:00 06/12/24 09:21 250 MLS/HR Vancomycin HCl 0 ml @ 0 mls/hr UD IV 06/11/24 18:45 Fat Emulsion Intravenous 100 ml/Potassium Phosphate 70 meq/ Magnesium Sulfate 20 meq/ Multivitamins 10 ml/Amino Acids/ Dextrose 1,380.9091 ml @ 58 mls/hr [id number] IV 06/12/24 22:00 06/13/24 21:59 objective PUL DIFF RHONCHI JVD ANGLE OF THE JAW CV RR PMI DIFFUSE EXT 3+ EDEMA laboratory and microbiology Laboratory Tests 06/12/24 04:40 Test 06/12/24 04:40 Range/Units Serum Glucose 112 H 74-106 mg/dL Problem List SS COMPLEX INCRESEING SOB HARVEY LE EDEMA HFrEF CHRONIC AND ACUTE EF < 20% NOW WITH HEMOPTYSIS TACHYCARDIA CTA LUNG C/W PE 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 Large filling defect right pulmonary artery consistent with pulmonary embolus. No film findings of pulmonary artery hypertension. No pulmonary emboli noted on the left. 2. Findings are also suggestive of right heart strain. 3. Large right pleural effusion. HEPARIN DRIP\ LASIX DRIP WILL START ORAL ANTICOAGULATION IN 48 HOURS ABX LE ARTERIAL DOPPLER NO SIGNIFICANT DISEASE FOR LIMB RISK DC HEPARIN START ELIQUIS S/P CT HEAD CURRENTLY ON BiPAP IMPROVING RESP STATUS 7.32/59/69 TITRATE BIPAP THORACENTESIS ULTRASOUND GUIDED MRI OF ABD S/P THORACENTESIS 2200 CC DRAINED CXR BILATERAL INFILTRATE PROMINENT MEDIASTINUM CARDIOMEGALY HYPOKALEMIA BEING CORRECTED A FLUTTER S/P CARDIOVERSION SINUS RHYTHM TITRATE OFF LEVOPHED USE ALBUMIN FOR PRESSURE SUPORT DC LASIX DRIP START D5 1/4 NS AT 125 CC/HR BMP/ BNP DAILY cont volume replacement contraction alkalosis leukocytosis improved monitor h/h HYPERNATREMIA IMPROVING DIAMOX X 1 DOSE HYPERNATREMIA CORRECTED DC IV FLUID CONT TPN INCREASE VENT SETTING TO AC 22 EPISODE OF VT CORRECT ACIDOSIS MAG SO4 2 G TITRATE OFF LEVOPHED DIAMOX TREAT METABOLIC ALKALOSIS RESP ACIDOSIS START TITRATING OFF SEDATION IMPROVED RESP PARAMETERS LIVER ENZYMES STILL ELEVATED wean off sedation CORRECT HYPERNATREMIA CHECK BNP AICD IMPLANTATION PT DEVELOPED PNEUMOTHORAX DELAYING EXTUBATION PNEUMOTHORAX IMPROVED LEUKOCYTOSIS AGAIN ELECTTOLYTES BETTER Dietary Evaluation Review Comments: 1. consider Renal Specific 70g protein restriction witn 2GNa, 3K, low Phos, if no diaylsis needed. 2. consider Renal Standard 2gn, 3K, low phosphate diet if Pt is on dialysis. 3. encourage and monitor po intake to meet 75% of his needs. Expected Outcomes/Goals: avoid uremic symptoms, gradual healed wounds. Plan discussed with: Other Critical Care Time(min): 35 ISSAC SHAH MD Jun 12, 2024 12:40
[2024-06-12] MEDS: TPN PER PHARMACY IV NR (21:35)
[2024-06-12] MEDS: FUROSEMIDE 40 MG/4 ML VIAL ONE (22:46)
--- NOTE | 2024-06-12 22:55 | DVHPN2 ---
Progress Note - Dictate Date Seen: Jun 12, 2024 Medical Necessity Reason Pt with a Central, PICC or Fol: Yes The following are medically ne: Olsen Catheter Reason for olsen catheter: Strict I&O Subjective Patient seen and examined at bedside. Sedated, intubated on mechanical ventilator. Overnight events reviewed. vital signs Vital Sign Date Time Temp Pulse Resp B/P (MAP) Pulse Ox O2 Delivery O2 Flow Rate FiO2 06/12/24 22:16 142 18 126/57 (80) 100 30 06/12/24 20:00 97.7 97.7 06/12/24 20:00 Mechanical Ventilator+ Total Intake and Output 06/11/24 06/11/24 06/12/24 15:00 23:00 07:00 Intake Total 2101.50 ml 1418.125 ml 1709.500 ml Output Total 1250 ml 1080 ml Balance 2101.50 ml 168.125 ml 629.500 ml medications Current Medications Medications Dose Ordered Sig/Amy Route Start Time Stop Time Status Last Admin Dose Admin Digoxin 0.125 mg DAILY PO 05/19/24 10:00 06/12/24 09:15 0.125 MG Apixaban 5 mg BID PO 05/30/24 10:00 06/12/24 21:33 5 MG Potassium Chloride 100 ml @ 50 mls/hr Q2H IV 05/27/24 17:15 05/28/24 01:14 UNV Amino Acids 0 ml @ 0 mls/hr PER PHARMACY IV 05/30/24 12:00 Diagnostic Test (Pha) 1 strip Q6HR 05/30/24 18:00 06/12/24 18:30 1 STRIP Insulin Human Regular FOLLOW SLIDING SCALE Q6HR SC 05/30/24 18:00 06/11/24 18:33 2 UNITS Dextrose 50 ml UD IV 05/30/24 12:15 Acetaminophen 650 mg Q6HP PRN PO 05/31/24 19:30 06/10/24 14:37 650 MG Fentanyl Citrate 250 ml @ 2.5 mls/hr Q24H IV 06/06/24 12:45 06/12/24 08:49 12.5 MLS/HR Dexmedetomidine HCl 400 mcg/ Dextrose 100 ml @ 4.21 mls/hr [id number] IV 06/06/24 12:45 06/10/24 07:30 4.21 MLS/HR Spironolactone 25 mg DAILY GT 06/08/24 11:00 06/12/24 09:15 25 MG Midazolam HCl 50 ml @ 1 mls/hr Q24H IV 06/08/24 20:15 06/11/24 15:15 2 MLS/HR Dextrose/Sodium Chloride 1,000 ml @ 100 mls/hr Q10H IV 06/09/24 08:00 06/12/24 13:37 100 MLS/HR Ceftriaxone Sodium 50 ml @ 100 mls/hr DAILY@09 IV 06/10/24 15:30 06/12/24 08:44 100 MLS/HR Azithromycin 250 ml @ 125 mls/hr DAILY IV 06/10/24 15:30 06/12/24 11:03 125 MLS/HR Norepinephrine Bitartrate 32 mg/ Sodium Chloride 250 ml @ 0.938 mls/ hr Q24H IV 06/11/24 15:30 06/11/24 18:02 4.688 MLS/HR Vancomycin HCl 250 ml @ 250 mls/hr Q8HR@0200,1000,1800 IV 06/11/24 19:00 06/12/24 19:31 250 MLS/HR Vancomycin HCl 0 ml @ 0 mls/hr UD IV 06/11/24 18:45 Fat Emulsion Intravenous 100 ml/Potassium Phosphate 70 meq/ Magnesium Sulfate 20 meq/ Multivitamins 10 ml/Amino Acids/ Dextrose 1,380.9091 ml @ 58 mls/hr [id number] IV 06/12/24 22:00 06/13/24 21:59 06/12/24 21:35 58 MLS/HR objective Gen.: Patient lying in bed in medical ICU. Sedated, intubated on mechanical ventilator. Head: Normocephalic, atraumatic. Eyes: PERRLA. Ears: Normal external anatomy. Throat: Endotracheal tube and orogastric tube in place. Neck: Supple, trachea midline. Chest: Transmitted breath sounds bilaterally. Decreased air entry bilaterally. No wheezing. Bibasilar crackles. Cardio vascular: Positive S1, positive S2. Regular rate and rhythm. Abdomen: Positive bowel sounds in all 4 quadrants. Soft, nontender, nondistended. : Olsen in place. Normal external genitalia. Rectal: Deferred Skin: Warm, dry. Intact. Extremities: 2+ radial pulses bilaterally. No lower extremity edema. Neuro: Sedated laboratory and microbiology Laboratory Tests 06/12/24 04:40 Test 06/12/24 04:40 Range/Units Serum Glucose 112 H 74-106 mg/dL Assessment/Plan Impression: Acute hypoxic respiratory failure Mechanical ventilator Pleural effusion, right Atelectasis CHF exacerbation Pulmonary embolism Obesity with a BMI of 30.1 Pneumonia, likely gram negative Sacral wound Events: CXR demonstrates stable trace right apical pneumothorax. Stable bilateral airspace disease and pleural effusions. Right pigtail catheter and right chest tube in place. Remains on vent support On assist control with respiratory rate of 16, tidal volume 600, PEEP of 5, FiO2 at 60 -->30%. On Versed for sedation On Fentanyl for analgesia ABG reviewed, compensated. On pressors (Levophed 8 mcg/min) for hemodynamic support Titrate to keep MAP above 65 mmHg/SBP above 90 mmHg. Increased pressor requirements Continue antibiotics On Eliquis for PE TPN for nutritional support Monitor renal function Monitor electrolytes. Supplement as necessary. On IV fluids at 100 mL/hr. Surgery recs appreciated. Plan for debridement Wound care SBT/BAM. Poor prognosis Recommend Trach/PEG for liberation from vent. 06/09/24 - S/p bronchoscopy - removed copious secretions from L1-L10 06/09/24 - S/p right thoracentesis - 550 ml joycelyn fluid removed from right pleural space. 06/05/24 - S/p left thoracentesis on 950 mL's of joycelyn colored fluid removed from left pleural space. 06/03/24 - S/p bronchoscopy - cleared mucous plugging from L6-L10, L1-L5 and R1- R3 06/03/24 - S/p right thoracentesis - 1700 mL of serosanguineous fluid removed from R pleural space. S/p bronchoscopy w/ RML BAL on 05/28/24 - Cleared bloody secretions from L1-L10 and R1-R10 S/p cardioversion on 05/27/24 Labs and imaging reviewed. Rest of plan as noted below. Plan: s/p intubation on mechanical ventilator Status post right thoracentesis with removal of 2200 mL ABG reviewed. Alkalemia due to contraction alkalosis. Hypoxemia with a PO2 of 42 mmHg. Patient was emergently intubated and placed on mechanical ventilation. Currently on assist control with respiratory rate of 16, tidal volume 600, PEEP of 5, FiO2 at 30%. Titrate FIO2 to keep O2 saturation above 92%. VAP bundle Daily ABG and CXR while intubated. Sedated for vent synchrony On pressors for hemodynamic support. Titrate to keep MAP above 65 mmHg/SBP above 90 mmHg. Continue antibiotics F/u cultures. Sputum cultures from BAL grew Staphylococcus aureus. Monitor renal function due to Acute kidney injury. Monitor electrolytes. Supplement as necessary. Monitor ins and outs Maintain euvolemia Cardiology recommendations appreciated. Nutritional support. Accu-Cheks, ISS. GI/DVT prophylaxis. Condition: Critical Prognosis: Poor given multiple comorbidities. Rest of plan per hospitalist and other consultants. A total of 35 minutes of critical care time was spent reviewing the patient record, examining the patient, making a diagnostic and therapeutic plan, discussing this plan with the medical personnel, following up on diagnostic studies and following the patient for clinical stability excluding any and all procedures. At least 50% of this time was spent in direct, [id number] contact. Thank you Dr. Conn for allowing me to participate in this patient's care. Further recommendations will depend on patient's clinical course. Please do not hesitate to contact me if you have any questions or concerns. This medical document was created using an electronic medical record system with [employer] dictation system. Although this document has been carefully reviewed, there may still be some phonetic and typographical errors. These areas are purely typographical due to imperfections of the software programs, and do not reflect any compromise in the patient's medical care. Dietary Evaluation Review Comments: 1. consider Renal Specific 70g protein restriction witn 2GNa, 3K, low Phos, if no diaylsis needed. 2. consider Renal Standard 2gn, 3K, low phosphate diet if Pt is on dialysis. 3. encourage and monitor po intake to meet 75% of his needs. Expected Outcomes/Goals: avoid uremic symptoms, gradual healed wounds. Plan discussed with: Other (CAELB Byrd) Critical Care Time(min): 35 BOGDAN MANN MD Jun 12, 2024 22:55
[2024-06-12] MEDS: FUROSEMIDE 40 MG/4 ML VIAL IV ONE (23:10)
--- NOTE | 2024-06-12 23:19 | DVHNC2 ---
Intubation Indication: Respiratory Insufficiency Prep: Preoxygenation Intubation Approach: Orotracheal UTO Consent emergent reintubation due to ett leak. Date of Service: Jun 12, 2024 Billing Provider: TIFFANY POLK Common Visit Codes: PROCEDURE ONLY Procedure Codes: [id number] TIFFANY POLK Jun 12, 2024 23:19
[2024-06-13] VITALS (107 sets, daily range): BP systolic 80–139; BP diastolic 26–57; PULSE 78–115; RESP 10–26; TEMP 97.3–99.1; O2SAT 92–100
[2024-06-13 05:21] LABS: Basophils % (auto) 0.3 % (0.0-2.0); Eosinophils # (auto) 0.4 10 ^3/uL (0-0.8); Hemoglobin 8.8 g/dL (13.5-17.5)
[2024-06-13 05:24] LABS: Basophils # (auto) 0.1 10 ^3/uL (0-0.2); Eosinophils % (auto) 2.4 % (0.0-7.0); Hematocrit 27.4 % (41.0-53.0); Lymphocytes # (auto) 0.8 10 ^3/uL (0.4-5.4); Lymphocytes % (auto) 4.7 % (10.0-50.0); Mean Corpuscular Hemoglobin 26.6 pg (28.0-32.0); Mean Corpuscular Hgb Conc. 32.2 g/dL (32.0-36.0); Mean Corpuscular Volume 82.4 fL (80.0-100.0); Monocytes # (auto) 1.1 10 ^3/uL (0-1.3); Monocytes % (auto) 6.8 % (0.0-12.0); Neutrophils # (auto) 14.4 10 ^3/uL (1.6-8.6); Neutrophils % (auto) 85.8 % (37.0-80.0); Nucleated Red Blood Cells % 0.1 %; Platelet Count (auto) 320 10^3/uL (140-450); Red Blood Cells 3.33 10^6/uL (4.5-5.90); Red Cell Distribution Width 16.9 % (11.8-14.3); White Blood Cell 16.8 10^3/uL (4.4-10.8)
--- NOTE | 2024-06-13 05:48 | DVH ---
CHEST RADIOGRAPH Indication: ET tube replaced. Need to confirm correct placement. Technique: Single frontal view of the chest was obtained Comparison: XY CHEST XRAY 1 VIEW on DOS: 06/12/24 FINDINGS: Lines and Tubes: There is a right pigtail catheter overlying the right apex. Left central venous cat heter terminates in the superior vena cava. There is a medial right chest tube. The enteric tube cour ses below the left hemidiaphragm and the tip extends outside the field of view. The endotracheal tube terminates 6.2 cm above fredo. Lungs: Patchy bilateral consolidation. Pleura: No effusion. No persistent pneumothorax. Cardiomediastinal contours: Stable Bones: No acute osseous abnormality. IMPRESSION: 1. No persistent pneumothorax. Right chest tubes unchanged. 2. Bilateral consolidation similar to prior study.
[2024-06-13 05:51] LABS: Carbon Dioxide 29 mmol/L (20-31); Potassium 3.9 mmol/L (3.5-5.1)
[2024-06-13 05:52] LABS: Alanine Aminotransferase 219 U/L (7-40); Albumin 1.9 g/dL (3.2-4.8); Alkaline Phosphatase 206 U/L (46-116); Anion Gap 3 (5-15); Aspartate Aminotransferase 235 U/L (13-40); BUN/Creatinine Ratio 83.3 (10.0-20.0); Bilirubin, Total 4.3 mg/dL (0.2-1.0); Blood Urea Nitrogen 30 mg/dL (9-23); Calcium 8.2 mg/dL (8.7-10.4); Chloride 109 mmol/L (98-107); Glucose 123 mg/dL (74-106); Magnesium 1.9 mg/dL (1.6-2.6); Phosphorus 3.6 mg/dL (2.4-5.1); Sodium 141 mmol/L (136-145)
[2024-06-13 05:53] LABS: Total Protein 4.4 g/dL (5.7-8.2)
[2024-06-13 08:41] LABS: Base Excess 2.3 mmol/L (-2.0-3.0)
--- NOTE | 2024-06-13 09:13 | DVH ---
XY CHEST XRAY 1 VIEW, HISTORY: Air leak noted on chest tube. COMPARISON: XY CHEST XRAY 1 VIEW on DOS: 06/13/24, XY CHEST XRAY 1 VIEW on DOS: 06/12/24, XY CHEST PORT ABLE on DOS: 06/12/24 XY CHEST XRAY 1 VIEW on DOS: 06/13/24, XY CHEST XRAY 1 VIEW on DOS: 06/12/24, XY CHEST PORTABLE on DOS: 06/12/24 TECHNICAL DATA: 1 view of the chest was obtained. FINDINGS: Lines and tubes: Stable lines and tubes. Cardiomediastinal silhouette: Enlarged Pulmonary vasculature: Prominent Lung expansion: low Lung airspace: Patchy bibasilar opacities. Lung interstitium: normal Pleura: Similar right basilar lucency, nonspecific. Pneumothorax: no Bones: Unremarkable Other: no IMPRESSION: Stable lines and tubes with similar lung aeration bilaterally and cardiomegaly.
--- NOTE | 2024-06-13 09:48 | MEDREC ---
FORM[facility]LY [facility], LATER [facility] Intervention Section I FOR[facility]LY [facility], LAT[facility] Intervention: Deescalate AB based on CS (THE WBC IS UPTRENDING. THE FINAL RESPIRATORY CULTURE SHOWED STAPHYLOCOCCUS AUREUS AND PSEUDOMONAS AERUGINOSA (06/12). THE PRELIMINARY URINE CULTURE ALSO SHOWED PSEUDOMONAS. PLEASE CHANGE CEFTRIAXONE TO CEFEPIME TO COVER PSEUDOMONAS. PLEASE DE-ESCALATE VANCOMYC IN BASED ON CULTURE SHOWED ONLY [facility]. ) JOE MIRELES Jun 13, 2024 09:48
[2024-06-13] MEDS: SPIRONOLACTONE 25 MG TAB GT SCH (10:42)
--- NOTE | 2024-06-13 10:42 | DVH ---
EXAM: XY CHEST XRAY 1 VIEW CLINICAL HISTORY: Pt intubated. TECHNIQUE: Single AP view of the chest WID: COMPARISON: XY CHEST PORTABLE on DOS: 06/12/24 FINDINGS: Lines and tubes: Endotracheal tube projects above the fredo 7.1 cm. Left subclavian central venous catheter projects over the low SVC. There are 2 right thoracostomy tubes in unchanged position. Gastric tube descends beneath the level of the diaphragm and tip not visualized in field of view Chest: Mild cardiomegaly. Pulmonary vascular congestion. Trace right pneumothorax. Bilateral pleural effusions. Patchy airspace opacities bilaterally. Lung bases are not entirely included in the field of view. The osseous structures are grossly intact. IMPRESSION: 1. There is indwelling support devices in place as described. 2. Persistent trace right pneumothorax. 3. Mild cardiomegaly, pulmonary vascular congestion, and bilateral pleural effusions. 4. Patchy airspace opacities bilaterally without significant change. EL CAGLE
--- NOTE | 2024-06-13 12:43 | DVHPN2 ---
Progress Note - Dictate Date Seen: Jun 13, 2024 Medical Necessity Reason Pt with a Central, PICC or Fol: Yes The following are medically ne: Olsen Catheter Reason for olsen catheter: Strict I&O Subjective PT WITH SS COMPLEX INCRESEING SOB HARVEY LE EDEMA HFrEF CHRONIC AND ACUTE NOW WITH HEMOPTYSIS TACHYCARDIA CTA LUNG C/W PE ACUTE vital signs Vital Sign Date Time Temp Pulse Resp B/P (MAP) Pulse Ox O2 Delivery O2 Flow Rate FiO2 06/13/24 12:15 102 13 102/40 (60) 96 06/13/24 12:00 30 06/13/24 12:00 Mechanical Ventilator+ 06/13/24 12:00 99.1 99.1 Total Intake and Output 06/12/24 06/12/24 06/13/24 15:00 23:00 07:00 Intake Total 1951.689 ml 1413.633 ml 992.376 ml Output Total 1055 ml 1450 ml Balance 1951.689 ml 358.633 ml -457.624 ml medications Current Medications Medications Dose Ordered Sig/Amy Route Start Time Stop Time Status Last Admin Dose Admin Digoxin 0.125 mg DAILY PO 05/19/24 10:00 06/13/24 10:06 0.125 MG Apixaban 5 mg BID PO 05/30/24 10:00 06/13/24 10:07 5 MG Potassium Chloride 100 ml @ 50 mls/hr Q2H IV 05/27/24 17:15 05/28/24 01:14 UNV Amino Acids 0 ml @ 0 mls/hr PER PHARMACY IV 05/30/24 12:00 Diagnostic Test (Pha) 1 strip Q6HR 05/30/24 18:00 06/13/24 00:00 1 STRIP Insulin Human Regular FOLLOW SLIDING SCALE Q6HR SC 05/30/24 18:00 06/11/24 18:33 2 UNITS Dextrose 50 ml UD IV 05/30/24 12:15 Acetaminophen 650 mg Q6HP PRN PO 05/31/24 19:30 06/10/24 14:37 650 MG Fentanyl Citrate 250 ml @ 2.5 mls/hr Q24H IV 06/06/24 12:45 06/13/24 03:06 20 MLS/HR Dexmedetomidine HCl 400 mcg/ Dextrose 100 ml @ 4.21 mls/hr [id number] IV 06/06/24 12:45 06/10/24 07:30 4.21 MLS/HR Midazolam HCl 50 ml @ 1 mls/hr Q24H IV 06/08/24 20:15 06/13/24 10:51 4 MLS/HR Dextrose/Sodium Chloride 1,000 ml @ 100 mls/hr Q10H IV 06/09/24 08:00 06/12/24 13:37 100 MLS/HR Ceftriaxone Sodium 50 ml @ 100 mls/hr DAILY@09 IV 06/10/24 15:30 06/13/24 08:56 100 MLS/HR Azithromycin 250 ml @ 125 mls/hr DAILY IV 06/10/24 15:30 06/13/24 12:03 125 MLS/HR Norepinephrine Bitartrate 32 mg/ Sodium Chloride 250 ml @ 0.938 mls/ hr Q24H IV 06/11/24 15:30 06/13/24 10:50 6.563 MLS/HR Vancomycin HCl 250 ml @ 250 mls/hr Q8HR@0200,1000,1800 IV 06/11/24 19:00 06/13/24 10:07 250 MLS/HR Vancomycin HCl 0 ml @ 0 mls/hr UD IV 06/11/24 18:45 Fat Emulsion Intravenous 100 ml/Potassium Phosphate 70 meq/ Magnesium Sulfate 20 meq/ Multivitamins 10 ml/Amino Acids/ Dextrose 1,380.9091 ml @ 58 mls/hr [id number] IV 06/12/24 22:00 06/13/24 21:59 06/12/24 21:35 58 MLS/HR Spironolactone 25 mg DAILY GT 06/13/24 10:00 06/13/24 10:42 25 MG Potassium Chloride 100 ml @ 50 mls/hr Q2H IV 06/13/24 12:45 06/13/24 16:44 UNV Magnesium Sulfate/ Dextrose 100 ml @ 100 mls/hr Q1HR IV 06/13/24 13:00 06/13/24 14:59 UNV Aztreonam 1 gm/ Dextrose 50 ml @ 100 mls/hr Q8HR IV 06/13/24 14:00 UNV objective PUL DIFF RHONCHI JVD ANGLE OF THE JAW CV RR PMI DIFFUSE EXT 3+ EDEMA laboratory and microbiology Laboratory Tests 06/13/24 04:50 Test 06/13/24 04:50 Range/Units Serum Glucose 123 H 74-106 mg/dL Problem List SS COMPLEX INCRESEING SOB HARVEY LE EDEMA HFrEF CHRONIC AND ACUTE EF < 20% NOW WITH HEMOPTYSIS TACHYCARDIA CTA LUNG C/W PE 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 Large filling defect right pulmonary artery consistent with pulmonary embolus. No film findings of pulmonary artery hypertension. No pulmonary emboli noted on the left. 2. Findings are also suggestive of right heart strain. 3. Large right pleural effusion. HEPARIN DRIP\ LASIX DRIP WILL START ORAL ANTICOAGULATION IN 48 HOURS ABX LE ARTERIAL DOPPLER NO SIGNIFICANT DISEASE FOR LIMB RISK DC HEPARIN START ELIQUIS S/P CT HEAD CURRENTLY ON BiPAP IMPROVING RESP STATUS 7.32/59/69 TITRATE BIPAP THORACENTESIS ULTRASOUND GUIDED MRI OF ABD S/P THORACENTESIS 2200 CC DRAINED CXR BILATERAL INFILTRATE PROMINENT MEDIASTINUM CARDIOMEGALY HYPOKALEMIA BEING CORRECTED A FLUTTER S/P CARDIOVERSION SINUS RHYTHM TITRATE OFF LEVOPHED USE ALBUMIN FOR PRESSURE SUPORT DC LASIX DRIP START D5 1/4 NS AT 125 CC/HR BMP/ BNP DAILY cont volume replacement contraction alkalosis leukocytosis improved monitor h/h HYPERNATREMIA IMPROVING DIAMOX X 1 DOSE HYPERNATREMIA CORRECTED DC IV FLUID CONT TPN INCREASE VENT SETTING TO AC 22 EPISODE OF [place] CORRECT ACIDOSIS MAG SO4 2 G TITRATE OFF LEVOPHED DIAMOX TREAT METABOLIC ALKALOSIS RESP ACIDOSIS START TITRATING OFF SEDATION IMPROVED RESP PARAMETERS LIVER ENZYMES STILL ELEVATED wean off sedation CORRECT HYPERNATREMIA CHECK BNP AICD IMPLANTATION PT DEVELOPED PNEUMOTHORAX DELAYING EXTUBATION PNEUMOTHORAX IMPROVED LEUKOCYTOSIS AGAIN ELECTTOLYTES BETTER NOW CXR CONSISTENT WITH CHF CORRECT K AND Mg CHANGE ABX VANCO AND AZTREONAM EPOGEN IRON Dietary Evaluation Review Comments: 1. consider Renal Specific 70g protein restriction witn 2GNa, 3K, low Phos, if no diaylsis needed. 2. consider Renal Standard 2gn, 3K, low phosphate diet if Pt is on dialysis. 3. encourage and monitor po intake to meet 75% of his needs. Expected Outcomes/Goals: avoid uremic symptoms, gradual healed wounds. Plan discussed with: Patient Critical Care Time(min): 35 ISSAC SHAH MD Jun 13, 2024 12:43
[2024-06-13] MEDS ORDERED: POTASSIUM CHL 20MEQ/100ML 100 ML IV SCH (12:45)
[2024-06-13] MEDS ORDERED: MAGNESIUM SULFATE 1GM/100ML 100 ML IV SCH (13:00)
[2024-06-13] MEDS ORDERED: CEFEPIME 1GM/ 50ML 50 ML IV SCH (14:00)
[2024-06-13] MEDS: POTASSIUM CHL 20MEQ/100ML 100 ML IV SCH (14:52)
[2024-06-13] MEDS: MAGNESIUM SULFATE 1GM/100ML 100 ML IV SCH (14:52)
--- NOTE | 2024-06-13 14:53 | ECG ---
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
[2024-06-13] MEDS: AZTREONAM 1GM INJ 1 GM in D5W 5% 50 ML IV SCH (17:30)
[2024-06-13] MEDS: FAT EMULSION IV NR (21:51)
[2024-06-13] MEDS: POTASSIUM ACETATE IV NR (21:51)
[2024-06-13] MEDS: [UNRECOGNIZED DRUG - OTHER] IV NR (21:51)
[2024-06-13] MEDS: POTASSIUM PHOSPHATE IV NR (21:51)
[2024-06-13] MEDS: EPOETIN ALFA-EPBX 10,000 UNIT/1ML VIAL SC ONE (22:17)
--- NOTE | 2024-06-13 22:34 | DVHPN2 ---
Progress Note - Dictate Date Seen: Jun 13, 2024 Medical Necessity Reason Pt with a Central, PICC or Fol: Yes The following are medically ne: Olsen Catheter Reason for olsen catheter: Strict I&O Subjective Patient seen and examined at bedside. Sedated, intubated on mechanical ventilator. Overnight events reviewed. vital signs Vital Sign Date Time Temp Pulse Resp B/P (MAP) Pulse Ox O2 Delivery O2 Flow Rate FiO2 06/13/24 21:00 80 12 124/42 (69) 98 06/13/24 20:10 30 06/13/24 20:00 Mechanical Ventilator+ 06/13/24 20:00 98.0 98.0 Total Intake and Output 06/12/24 06/12/24 06/13/24 15:00 23:00 07:00 Intake Total 1951.689 ml 1413.633 ml 992.376 ml Output Total 1055 ml 1450 ml Balance 1951.689 ml 358.633 ml -457.624 ml medications Current Medications Medications Dose Ordered Sig/Amy Route Start Time Stop Time Status Last Admin Dose Admin Digoxin 0.125 mg DAILY PO 05/19/24 10:00 06/13/24 10:06 0.125 MG Apixaban 5 mg BID PO 05/30/24 10:00 06/13/24 21:49 5 MG Potassium Chloride 100 ml @ 50 mls/hr Q2H IV 05/27/24 17:15 05/28/24 01:14 UNV Amino Acids 0 ml @ 0 mls/hr PER PHARMACY IV 05/30/24 12:00 Diagnostic Test (Pha) 1 strip Q6HR 05/30/24 18:00 06/13/24 18:14 1 STRIP Insulin Human Regular FOLLOW SLIDING SCALE Q6HR SC 05/30/24 18:00 06/11/24 18:33 2 UNITS Dextrose 50 ml UD IV 05/30/24 12:15 Acetaminophen 650 mg Q6HP PRN PO 05/31/24 19:30 06/10/24 14:37 650 MG Fentanyl Citrate 250 ml @ 2.5 mls/hr Q24H IV 06/06/24 12:45 06/13/24 14:14 15 MLS/HR Midazolam HCl 50 ml @ 1 mls/hr Q24H IV 06/08/24 20:15 06/13/24 21:49 4 MLS/HR Norepinephrine Bitartrate 32 mg/ Sodium Chloride 250 ml @ 0.938 mls/ hr Q24H IV 06/11/24 15:30 06/13/24 10:50 6.563 MLS/HR Vancomycin HCl 250 ml @ 250 mls/hr Q8HR@0200,1000,1800 IV 06/11/24 19:00 06/13/24 18:14 250 MLS/HR Vancomycin HCl 0 ml @ 0 mls/hr UD IV 06/11/24 18:45 Spironolactone 25 mg DAILY GT 06/13/24 10:00 06/13/24 10:42 25 MG Potassium Chloride 100 ml @ 50 mls/hr Q2H IV 06/13/24 12:45 06/13/24 16:44 UNV Magnesium Sulfate/ Dextrose 100 ml @ 100 mls/hr Q1HR IV 06/13/24 13:00 06/13/24 14:59 UNV Aztreonam 1 gm/ Dextrose 50 ml @ 100 mls/hr Q8HR IV 06/13/24 14:00 06/13/24 17:30 100 MLS/HR Iron Sucrose 110 ml @ 110 mls/hr DAILY@1200 IV 06/14/24 12:00 06/18/24 12:59 Fat Emulsion Intravenous 100 ml/Potassium Phosphate 70 meq/ Potassium Acetate 15 meq/Magnesium Sulfate 26 meq/ Multivitamins 10 ml/Amino Acids/ Dextrose 1,389.9091 ml @ 58 mls/hr [id number] IV 06/13/24 22:00 06/14/24 21:59 06/13/24 21:51 58 MLS/HR Cefepime HCl 50 ml @ 12.5 mls/hr Q8HR IV 06/13/24 14:00 UNV objective Gen.: Patient lying in bed in medical ICU. Sedated, intubated on mechanical ventilator. Head: Normocephalic, atraumatic. Eyes: PERRLA. Ears: Normal external anatomy. Throat: Endotracheal tube and orogastric tube in place. Neck: Supple, trachea midline. Chest: Transmitted breath sounds bilaterally. Decreased air entry bilaterally. No wheezing. Bibasilar crackles. Cardio vascular: Positive S1, positive S2. Regular rate and rhythm. Abdomen: Positive bowel sounds in all 4 quadrants. Soft, nontender, nondistended. : Olsen in place. Normal external genitalia. Rectal: Deferred Skin: Warm, dry. Intact. Extremities: 2+ radial pulses bilaterally. No lower extremity edema. Neuro: Sedated laboratory and microbiology Laboratory Tests 06/13/24 04:50 Test 06/13/24 04:50 Range/Units Serum Glucose 123 H 74-106 mg/dL Assessment/Plan Impression: Acute hypoxic respiratory failure Mechanical ventilator Pleural effusion, right Atelectasis CHF exacerbation Pulmonary embolism Obesity with a BMI of 30.1 Pneumonia, likely gram negative Sacral wound Events: Remains on vent support On assist control with respiratory rate of 16, tidal volume 600, PEEP of 5, FiO2 at 30%. ABG reviewed, compensated. CXR demonstrates Patchy bibasilar opacities, cardiomegaly. No pneumothorax. Two chest tubes in place. Overnight, ET tube was exchanged. On Versed for sedation On Fentanyl for analgesia On pressors (Levophed 14 mcg/min) for hemodynamic support Titrate to keep MAP above 65 mmHg/SBP above 90 mmHg. Increased pressor requirements On Eliquis for PE Continue antibiotics Sputum cultures grew Staph aureus and Pseudomonas aeruginosa - sensitivities noted, abx adjusted TPN for nutritional support Monitor renal function Monitor electrolytes. Supplement as necessary. On IV fluids at 100 mL/hr. Surgery recs appreciated. Plan for debridement Wound care SBT/BAM - CPAP with PS 10, PEEP of 5 Poor prognosis Recommend Trach/PEG for liberation from vent. 06/09/24 - S/p bronchoscopy - removed copious secretions from L1-L10 06/09/24 - S/p right thoracentesis - 550 ml joycelyn fluid removed from right pleural space. 06/05/24 - S/p left thoracentesis on 950 mL's of joycelyn colored fluid removed from left pleural space. 06/03/24 - S/p bronchoscopy - cleared mucous plugging from L6-L10, L1-L5 and R1- R3 06/03/24 - S/p right thoracentesis - 1700 mL of serosanguineous fluid removed from R pleural space. S/p bronchoscopy w/ RML BAL on 05/28/24 - Cleared bloody secretions from L1-L10 and R1-R10 S/p cardioversion on 05/27/24 Labs and imaging reviewed. Rest of plan as noted below. Plan: s/p intubation on mechanical ventilator Status post right thoracentesis with removal of 2200 mL ABG reviewed. Alkalemia due to contraction alkalosis. Hypoxemia with a PO2 of 42 mmHg. Patient was emergently intubated and placed on mechanical ventilation. Currently on assist control with respiratory rate of 16, tidal volume 600, PEEP of 5, FiO2 at 30%. Titrate FIO2 to keep O2 saturation above 92%. VAP bundle Daily ABG and CXR while intubated. Sedated for vent synchrony On pressors for hemodynamic support. Titrate to keep MAP above 65 mmHg/SBP above 90 mmHg. Continue antibiotics F/u cultures. Sputum cultures from BAL grew Staphylococcus aureus. Monitor renal function due to Acute kidney injury. Monitor electrolytes. Supplement as necessary. Monitor ins and outs Maintain euvolemia Cardiology recommendations appreciated. Nutritional support. Accu-Cheks, ISS. GI/DVT prophylaxis. Condition: Critical Prognosis: Poor given multiple comorbidities. Rest of plan per hospitalist and other consultants. A total of 35 minutes of critical care time was spent reviewing the patient record, examining the patient, making a diagnostic and therapeutic plan, discussing this plan with the medical personnel, following up on diagnostic studies and following the patient for clinical stability excluding any and all procedures. At least 50% of this time was spent in direct, [id number] contact. Thank you Dr. Conn for allowing me to participate in this patient's care. Further recommendations will depend on patient's clinical course. Please do not hesitate to contact me if you have any questions or concerns. This medical document was created using an electronic medical record system with [employer] dictation system. Although this document has been carefully reviewed, there may still be some phonetic and typographical errors. These areas are purely typographical due to imperfections of the software programs, and do not reflect any compromise in the patient's medical care. Dietary Evaluation Review Comments: 1. consider Renal Specific 70g protein restriction witn 2GNa, 3K, low Phos, if no diaylsis needed. 2. consider Renal Standard 2gn, 3K, low phosphate diet if Pt is on dialysis. 3. encourage and monitor po intake to meet 75% of his needs. Expected Outcomes/Goals: avoid uremic symptoms, gradual healed wounds. Plan discussed with: Other (CALEB Byrd) Critical Care Time(min): 35 BOGDAN MANN MD Jun 13, 2024 22:34
[2024-06-14] VITALS (106 sets, daily range): BP systolic 91–146; BP diastolic 23–63; PULSE 78–140; RESP 9–33; TEMP 97.6–99.6; O2SAT 92–100
[2024-06-14 05:22] LABS: Hemoglobin 8.8 g/dL (13.5-17.5); Red Cell Distribution Width 17.5 % (11.8-14.3)
[2024-06-14 05:26] LABS: Hematocrit 27.7 % (41.0-53.0); Mean Corpuscular Hemoglobin 26.3 pg (28.0-32.0); Mean Corpuscular Hgb Conc. 31.9 g/dL (32.0-36.0); Mean Corpuscular Volume 82.5 fL (80.0-100.0); Platelet Count (auto) 342 10^3/uL (140-450); Red Blood Cells 3.36 10^6/uL (4.5-5.90); White Blood Cell 19.4 10^3/uL (4.4-10.8)
[2024-06-14 05:30] LABS: Basophils % (manual) 0 (0.0-2.0); Blast Cells 0; Metamyelocytes % 0; Myelocytes % 0; Promyelocytes % 0; Reactive Lymphocytes 0
[2024-06-14 05:40] LABS: Anion Gap 3 (5-15); BUN/Creatinine Ratio 81.1 (10.0-20.0); Carbon Dioxide 29 mmol/L (20-31); Magnesium 2.2 mg/dL (1.6-2.6); Potassium 4.7 mmol/L (3.5-5.1); Sodium 140 mmol/L (136-145)
[2024-06-14 05:41] LABS: Alanine Aminotransferase 175 U/L (7-40); Albumin 1.9 g/dL (3.2-4.8); Alkaline Phosphatase 198 U/L (46-116); Aspartate Aminotransferase 149 U/L (13-40); Bilirubin, Total 4.3 mg/dL (0.2-1.0); Blood Urea Nitrogen 30 mg/dL (9-23); Calcium 8.2 mg/dL (8.7-10.4); Chloride 108 mmol/L (98-107); Glucose 114 mg/dL (74-106); Phosphorus 3.9 mg/dL (2.4-5.1); Total Protein 4.5 g/dL (5.7-8.2)
--- NOTE | 2024-06-14 06:01 | DVH ---
CHEST RADIOGRAPH Indication: intubated Technique: Single frontal view of the chest was obtained Comparison: XY CHEST XRAY 1 VIEW on DOS: 06/13/24 FINDINGS: Lines and Tubes: Right pigtail catheter projects over the right apex. Left central venous catheter t erminates in the superior vena cava. Right-sided chest tube, enteric tube and endotracheal tube are u nchanged in position. Lungs: Diffuse bilateral opacities, increased. Pleura: Increased bilateral pleural effusions. No pneumothorax. Cardiomediastinal contours: Cardiomegaly. Bones: No acute osseous abnormality. IMPRESSION: 1. Worsening bilateral airspace disease and pleural effusions.
[2024-06-14 07:20] LABS: Band Neutrophils % (manual) 6; Eosinophils % (manual) 2 (0-7); Lymphocytes % (manual) 2 (10.0-50.0); Monocytes % (manual) 5 (0-12)
[2024-06-14 07:21] LABS: Platelet Estimate Adequate
[2024-06-14 08:03] LABS: Base Excess 0.7 mmol/L (-2.0-3.0)
[2024-06-14 11:59] LABS: Base Excess 3.6 mmol/L (-2.0-3.0)
[2024-06-14] MEDS: IRON SUCROSE COMPLEX 110 ML IV SCH (11:59)
[2024-06-14] MEDS: ENOXAPARIN SOD 30 MG/0.3 ML SYRINGE SC ONE (13:26)
--- NOTE | 2024-06-14 14:12 | DVHPN2 ---
Progress Note - Dictate Date Seen: Jun 14, 2024 Medical Necessity Reason Pt with a Central, PICC or Fol: Yes The following are medically ne: Olsen Catheter Reason for olsen catheter: Strict I&O Subjective PT WITH SS COMPLEX INCRESEING SOB HARVEY LE EDEMA HFrEF CHRONIC AND ACUTE NOW WITH HEMOPTYSIS TACHYCARDIA CTA LUNG C/W PE ACUTE vital signs Vital Sign Date Time Temp Pulse Resp B/P (MAP) Pulse Ox O2 Delivery O2 Flow Rate FiO2 06/14/24 13:36 21 97 Mechanical Ventilator+ 30 30 06/14/24 13:36 92 06/14/24 13:30 112/42 (65) 107/40 (62) 06/14/24 12:00 98.8 98.8 Total Intake and Output 06/13/24 06/13/24 06/14/24 15:00 23:00 07:00 Intake Total 1283.065 ml 1148.504 ml 903.504 ml Output Total 980 ml 960 ml Balance 1283.065 ml 168.504 ml -56.496 ml medications Current Medications Medications Dose Ordered Sig/Amy Route Start Time Stop Time Status Last Admin Dose Admin Digoxin 0.125 mg DAILY PO 05/19/24 10:00 06/14/24 08:37 0.125 MG Potassium Chloride 100 ml @ 50 mls/hr Q2H IV 05/27/24 17:15 05/28/24 01:14 UNV Amino Acids 0 ml @ 0 mls/hr PER PHARMACY IV 05/30/24 12:00 Diagnostic Test (Pha) 1 strip Q6HR 05/30/24 18:00 06/14/24 11:50 1 STRIP Insulin Human Regular FOLLOW SLIDING SCALE Q6HR SC 05/30/24 18:00 06/11/24 18:33 2 UNITS Dextrose 50 ml UD IV 05/30/24 12:15 Acetaminophen 650 mg Q6HP PRN PO 05/31/24 19:30 06/10/24 14:37 650 MG Fentanyl Citrate 250 ml @ 2.5 mls/hr Q24H IV 06/06/24 12:45 06/14/24 05:56 10 MLS/HR Midazolam HCl 50 ml @ 1 mls/hr Q24H IV 06/08/24 20:15 06/13/24 21:49 4 MLS/HR Norepinephrine Bitartrate 32 mg/ Sodium Chloride 250 ml @ 0.938 mls/ hr Q24H IV 06/11/24 15:30 06/13/24 10:50 6.563 MLS/HR Vancomycin HCl 250 ml @ 250 mls/hr Q8HR@0200,1000,1800 IV 06/11/24 19:00 06/14/24 08:37 250 MLS/HR Vancomycin HCl 0 ml @ 0 mls/hr UD IV 06/11/24 18:45 Spironolactone 25 mg DAILY GT 06/13/24 10:00 06/14/24 08:37 25 MG Potassium Chloride 100 ml @ 50 mls/hr Q2H IV 06/13/24 12:45 06/13/24 16:44 UNV Magnesium Sulfate/ Dextrose 100 ml @ 100 mls/hr Q1HR IV 06/13/24 13:00 06/13/24 14:59 UNV Aztreonam 1 gm/ Dextrose 50 ml @ 100 mls/hr Q8HR IV 06/13/24 14:00 06/14/24 13:13 100 MLS/HR Iron Sucrose 110 ml @ 110 mls/hr DAILY@1200 IV 06/14/24 12:00 06/18/24 12:59 06/14/24 11:59 110 MLS/HR Fat Emulsion Intravenous 100 ml/Potassium Phosphate 70 meq/ Potassium Acetate 15 meq/Magnesium Sulfate 26 meq/ Multivitamins 10 ml/Amino Acids/ Dextrose 1,389.9091 ml @ 58 mls/hr [id number] IV 06/13/24 22:00 06/14/24 21:59 06/13/24 21:51 58 MLS/HR Cefepime HCl 50 ml @ 12.5 mls/hr Q8HR IV 06/13/24 14:00 UNV Fat Emulsion Intravenous 100 ml/Potassium Acetate 10 meq/ Potassium Phosphate 35.2 meq/Magnesium Sulfate 22 meq/ Multivitamins 10 ml/Amino Acids/ Dextrose 1,478.5 ml @ 61 mls/hr [id number] IV 06/14/24 22:00 06/15/24 21:59 Enoxaparin Sodium 30 mg BID SC 06/14/24 22:00 objective PUL DIFF RHONCHI JVD ANGLE OF THE JAW CV RR PMI DIFFUSE EXT 3+ EDEMA laboratory and microbiology Laboratory Tests 06/14/24 04:44 Test 1/24/25 04:44 Range/Units Serum Glucose 114 H 74-106 mg/dL Problem List SS COMPLEX INCRESEING SOB HARVEY LE EDEMA HFrEF CHRONIC AND ACUTE EF < 20% NOW WITH HEMOPTYSIS TACHYCARDIA CTA LUNG C/W PE 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 Large filling defect right pulmonary artery consistent with pulmonary embolus. No film findings of pulmonary artery hypertension. No pulmonary emboli noted on the left. 2. Findings are also suggestive of right heart strain. 3. Large right pleural effusion. HEPARIN DRIP\ LASIX DRIP WILL START ORAL ANTICOAGULATION IN 48 HOURS ABX LE ARTERIAL DOPPLER NO SIGNIFICANT DISEASE FOR LIMB RISK DC HEPARIN START ELIQUIS S/P CT HEAD CURRENTLY ON BiPAP IMPROVING RESP STATUS 7.32/59/69 TITRATE BIPAP THORACENTESIS ULTRASOUND GUIDED MRI OF ABD S/P THORACENTESIS 2200 CC DRAINED CXR BILATERAL INFILTRATE PROMINENT MEDIASTINUM CARDIOMEGALY HYPOKALEMIA BEING CORRECTED A FLUTTER S/P CARDIOVERSION SINUS RHYTHM TITRATE OFF LEVOPHED USE ALBUMIN FOR PRESSURE SUPORT DC LASIX DRIP START D5 1/4 NS AT 125 CC/HR BMP/ BNP DAILY cont volume replacement contraction alkalosis leukocytosis improved monitor h/h HYPERNATREMIA IMPROVING DIAMOX X 1 DOSE HYPERNATREMIA CORRECTED DC IV FLUID CONT TPN INCREASE VENT SETTING TO AC 22 EPISODE OF [place] CORRECT ACIDOSIS MAG SO4 2 G TITRATE OFF LEVOPHED DIAMOX TREAT METABOLIC ALKALOSIS RESP ACIDOSIS START TITRATING OFF SEDATION IMPROVED RESP PARAMETERS LIVER ENZYMES STILL ELEVATED wean off sedation CORRECT HYPERNATREMIA CHECK BNP AICD IMPLANTATION PT DEVELOPED PNEUMOTHORAX DELAYING EXTUBATION PNEUMOTHORAX IMPROVED LEUKOCYTOSIS AGAIN ELECTTOLYTES BETTER NOW CXR CONSISTENT WITH CHF CORRECT K AND Mg CHANGE ABX VANCO AND AZTREONAM EPOGEN IRON DC ELIQUIS START LOVENOX WBC CONTINUES TO INCREASE NEEDS SURGICAL DEBRIDEMENT OF DECUB CXR WORSENING EFFUSION AND FLUID OVERLOAD START LASIX DRIP Dietary Evaluation Review Comments: 1. consider Renal Specific 70g protein restriction witn 2GNa, 3K, low Phos, if no diaylsis needed. 2. consider Renal Standard 2gn, 3K, low phosphate diet if Pt is on dialysis. 3. encourage and monitor po intake to meet 75% of his needs. Expected Outcomes/Goals: avoid uremic symptoms, gradual healed wounds. Plan discussed with: Patient, Other Critical Care Time(min): 35 ISSAC SHAH MD Jun 14, 2024 14:12
[2024-06-14] MEDS: FUROSEMIDE INJECTION 100 MG in SODIUM CHL 0.9% 100 ML IV SCH (16:32)
--- NOTE | 2024-06-14 21:22 | DVHPN2 ---
Progress Note - Dictate Date Seen: Jun 14, 2024 Medical Necessity Reason Pt with a Central, PICC or Fol: Yes The following are medically ne: Olsen Catheter Reason for olsen catheter: Strict I&O Subjective Patient seen and examined at bedside. Intubated on mechanical ventilator. Overnight events reviewed. vital signs Vital Sign Date Time Temp Pulse Resp B/P (MAP) Pulse Ox O2 Delivery O2 Flow Rate FiO2 06/14/24 20:15 85 19 112/53 (72) 94 108/41 (63) 06/14/24 20:00 30 06/14/24 20:00 98.4 98.4 06/14/24 20:00 Mechanical Ventilator+ Total Intake and Output 06/13/24 06/13/24 06/14/24 15:00 23:00 07:00 Intake Total 1283.065 ml 1148.504 ml 903.504 ml Output Total 980 ml 960 ml Balance 1283.065 ml 168.504 ml -56.496 ml medications Current Medications Medications Dose Ordered Sig/Amy Route Start Time Stop Time Status Last Admin Dose Admin Digoxin 0.125 mg DAILY PO 05/19/24 10:00 06/14/24 08:37 0.125 MG Potassium Chloride 100 ml @ 50 mls/hr Q2H IV 05/27/24 17:15 05/28/24 01:14 UNV Amino Acids 0 ml @ 0 mls/hr PER PHARMACY IV 05/30/24 12:00 Diagnostic Test (Pha) 1 strip Q6HR 05/30/24 18:00 06/14/24 17:07 1 STRIP Insulin Human Regular FOLLOW SLIDING SCALE Q6HR SC 05/30/24 18:00 06/11/24 18:33 2 UNITS Dextrose 50 ml UD IV 05/30/24 12:15 Acetaminophen 650 mg Q6HP PRN PO 05/31/24 19:30 06/10/24 14:37 650 MG Fentanyl Citrate 250 ml @ 2.5 mls/hr Q24H IV 06/06/24 12:45 06/14/24 05:56 10 MLS/HR Midazolam HCl 50 ml @ 1 mls/hr Q24H IV 06/08/24 20:15 06/13/24 21:49 4 MLS/HR Norepinephrine Bitartrate 32 mg/ Sodium Chloride 250 ml @ 0.938 mls/ hr Q24H IV 06/11/24 15:30 06/13/24 10:50 6.563 MLS/HR Vancomycin HCl 250 ml @ 250 mls/hr Q8HR@0200,1000,1800 IV 06/11/24 19:00 06/14/24 18:07 250 MLS/HR Vancomycin HCl 0 ml @ 0 mls/hr UD IV 06/11/24 18:45 Spironolactone 25 mg DAILY GT 06/13/24 10:00 06/14/24 08:37 25 MG Potassium Chloride 100 ml @ 50 mls/hr Q2H IV 06/13/24 12:45 06/13/24 16:44 UNV Magnesium Sulfate/ Dextrose 100 ml @ 100 mls/hr Q1HR IV 06/13/24 13:00 06/13/24 14:59 UNV Aztreonam 1 gm/ Dextrose 50 ml @ 100 mls/hr Q8HR IV 06/13/24 14:00 06/14/24 13:13 100 MLS/HR Iron Sucrose 110 ml @ 110 mls/hr DAILY@1200 IV 06/14/24 12:00 06/18/24 12:59 06/14/24 11:59 110 MLS/HR Fat Emulsion Intravenous 100 ml/Potassium Phosphate 70 meq/ Potassium Acetate 15 meq/Magnesium Sulfate 26 meq/ Multivitamins 10 ml/Amino Acids/ Dextrose 1,389.9091 ml @ 58 mls/hr [id number] IV 06/13/24 22:00 06/14/24 21:59 06/13/24 21:51 58 MLS/HR Cefepime HCl 50 ml @ 12.5 mls/hr Q8HR IV 06/13/24 14:00 UNV Fat Emulsion Intravenous 100 ml/Potassium Acetate 10 meq/ Potassium Phosphate 35.2 meq/Magnesium Sulfate 22 meq/ Multivitamins 10 ml/Amino Acids/ Dextrose 1,478.5 ml @ 61 mls/hr [id number] IV 06/14/24 22:00 06/15/24 21:59 Enoxaparin Sodium 30 mg BID SC 06/14/24 22:00 Furosemide 100 mg/ Sodium Chloride 110 ml @ 4.4 mls/hr Q24H IV 06/14/24 14:15 06/14/24 16:32 4.4 MLS/HR objective Gen.: Patient lying in bed in medical ICU. Intubated on mechanical ventilator. Head: Normocephalic, atraumatic. Eyes: PERRLA. Ears: Normal external anatomy. Throat: Endotracheal tube and orogastric tube in place. Neck: Supple, trachea midline. Chest: Transmitted breath sounds bilaterally. Decreased air entry bilaterally. No wheezing. Bibasilar crackles. Cardio vascular: Positive S1, positive S2. Regular rate and rhythm. Abdomen: Positive bowel sounds in all 4 quadrants. Soft, nontender, nondistended. : Olsen in place. Normal external genitalia. Rectal: Deferred Skin: Warm, dry. Intact. Extremities: 2+ radial pulses bilaterally. No lower extremity edema. Neuro: Off sedation laboratory and microbiology Laboratory Tests 06/14/24 04:44 Test 06/14/24 04:44 Range/Units Serum Glucose 114 H 74-106 mg/dL Assessment/Plan Impression: Acute hypoxic respiratory failure Mechanical ventilator Pleural effusion, right Atelectasis CHF exacerbation Pulmonary embolism Obesity with a BMI of 30.1 Pneumonia, likely gram negative Sacral wound Events: Remains on vent support On assist control with respiratory rate of 16, tidal volume 600 -->550, PEEP of 5, FiO2 at 30%. Patient failed CPAP - tachypnea despite increased PS. Obtain ABG in 1 hour. Chest tubes were flushed. Decrease suction to -30 cmH2O CXR demonstrates worsening bilateral airspace disease and pleural effusions. Cardiomegaly. No pneumothorax. Two chest tubes in place. Off sedation On Fentanyl for analgesia On pressors for hemodynamic support. Levophed 10 mcg/min Titrate to keep MAP above 65 mmHg/SBP above 90 mmHg Improving pressor requirements On Eliquis for PE Continue antibiotics TPN for nutritional support Diurese as tolerated w/ Bumex Monitor renal function Monitor electrolytes. Supplement as necessary. On IV fluids at 100 mL/hr. Surgery recs appreciated. Wound care SBT/BAM Poor prognosis Recommend Trach/PEG for liberation from vent. 06/09/24 - S/p bronchoscopy - removed copious secretions from L1-L10 06/09/24 - S/p right thoracentesis - 550 ml joycelyn fluid removed from right pleural space. 06/05/24 - S/p left thoracentesis on 950 mL's of joycelyn colored fluid removed from left pleural space. 06/03/24 - S/p bronchoscopy - cleared mucous plugging from L6-L10, L1-L5 and R1- R3 06/03/24 - S/p right thoracentesis - 1700 mL of serosanguineous fluid removed from R pleural space. S/p bronchoscopy w/ RML BAL on 05/28/24 - Cleared bloody secretions from L1-L10 and R1-R10 S/p cardioversion on 05/27/24 Labs and imaging reviewed. Rest of plan as noted below. Plan: s/p intubation on mechanical ventilator Status post right thoracentesis with removal of 2200 mL ABG reviewed. Alkalemia due to contraction alkalosis. Hypoxemia with a PO2 of 42 mmHg. Patient was emergently intubated and placed on mechanical ventilation. Currently on assist control with respiratory rate of 16, tidal volume 550, PEEP of 5, FiO2 at 30%. Titrate FIO2 to keep O2 saturation above 92%. VAP bundle Daily ABG and CXR while intubated. Sedated for vent synchrony On pressors for hemodynamic support. Titrate to keep MAP above 65 mmHg/SBP above 90 mmHg. Continue antibiotics F/u cultures. Sputum cultures grew Staph aureus and Pseudomonas aeruginosa. Monitor renal function due to Acute kidney injury. Monitor electrolytes. Supplement as necessary. Monitor ins and outs Maintain euvolemia Cardiology recommendations appreciated. Nutritional support. Accu-Cheks, ISS. GI/DVT prophylaxis. Condition: Critical Prognosis: Poor given multiple comorbidities. Rest of plan per hospitalist and other consultants. A total of 35 minutes of critical care time was spent reviewing the patient record, examining the patient, making a diagnostic and therapeutic plan, discussing this plan with the medical personnel, following up on diagnostic studies and following the patient for clinical stability excluding any and all procedures. At least 50% of this time was spent in direct, [id number] contact. Thank you Dr. Conn for allowing me to participate in this patient's care. Further recommendations will depend on patient's clinical course. Please do not hesitate to contact me if you have any questions or concerns. This medical document was created using an electronic medical record system with [employer] system. Although this document has been carefully reviewed, there may still be some phonetic and typographical errors. These areas are purely typographical due to imperfections of the software programs, and do not reflect any compromise in the patient's medical care. Dietary Evaluation Review Comments: 1. consider Renal Specific 70g protein restriction witn 2GNa, 3K, low Phos, if no diaylsis needed. 2. consider Renal Standard 2gn, 3K, low phosphate diet if Pt is on dialysis. 3. encourage and monitor po intake to meet 75% of his needs. Expected Outcomes/Goals: avoid uremic symptoms, gradual healed wounds. Plan discussed with: Other (CALEB Elias) Critical Care Time(min): 35 BOGDAN MANN MD Jun 14, 2024 21:22
[2024-06-14] MEDS: ENOXAPARIN SOD 30 MG/0.3 ML SYRINGE SC SCH (21:27)
[2024-06-14] MEDS: TPN PER PHARMACY IV NR (22:00)
[2024-06-15] VITALS (112 sets, daily range): BP systolic 87–169; BP diastolic 33–88; PULSE 83–112; RESP 13–38; TEMP 98.3–100.2; O2SAT 94–100
[2024-06-15 05:15] LABS: Platelet Count (auto) 394 10^3/uL (140-450)
[2024-06-15 05:19] LABS: Hematocrit 27.3 % (41.0-53.0); Hemoglobin 8.7 g/dL (13.5-17.5); Mean Corpuscular Hemoglobin 26.1 pg (28.0-32.0); Mean Corpuscular Volume 81.8 fL (80.0-100.0); Red Blood Cells 3.34 10^6/uL (4.5-5.90); Red Cell Distribution Width 16.8 % (11.8-14.3); White Blood Cell 22.8 10^3/uL (4.4-10.8)
[2024-06-15 05:22] LABS: Basophils % (manual) 0 (0.0-2.0); Blast Cells 0; Eosinophils % (manual) 0 (0-7); Metamyelocytes % 0; Myelocytes % 0; Promyelocytes % 0; Reactive Lymphocytes 0
[2024-06-15 05:44] LABS: Anion Gap 4 (5-15); BUN/Creatinine Ratio 72.1 (10.0-20.0); Carbon Dioxide 29 mmol/L (20-31); Chloride 105 mmol/L (98-107); Magnesium 2.1 mg/dL (1.6-2.6); Phosphorus 4.1 mg/dL (2.4-5.1); Potassium 4.3 mmol/L (3.5-5.1); Sodium 138 mmol/L (136-145)
[2024-06-15 05:46] LABS: Alanine Aminotransferase 218 U/L (7-40); Alkaline Phosphatase 245 U/L (46-116); Aspartate Aminotransferase 281 U/L (13-40); Bilirubin, Total 4.8 mg/dL (0.2-1.0); Blood Urea Nitrogen 31 mg/dL (9-23); Calcium 7.9 mg/dL (8.7-10.4); Glucose 109 mg/dL (74-106); Total Protein 4.8 g/dL (5.7-8.2)
[2024-06-15 06:22] LABS: Band Neutrophils % (manual) 14; Lymphocytes % (manual) 7 (10.0-50.0); Monocytes % (manual) 6 (0-12); Platelet Estimate Adequate
--- NOTE | 2024-06-15 06:37 | DVH ---
CHEST RADIOGRAPH Indication: intubated Technique: Single frontal view of the chest was obtained Comparison: XY CHEST PORTABLE on DOS: 06/14/24, XY CHEST XRAY 1 VIEW on DOS: 06/13/24, XY CHEST XRAY 1 VIEW on DOS: 06/13/24 IMPRESSION: The cardiac silhouette is enlarged. Support lines and tubes appear unchanged in position. Bilateral areas of atelectasis and small left pleural effusion. Moderate pulmonary vascular congestion. Basila r lucency on the right may represent persistent pneumothorax. Right pleural catheter is present. Con tinued follow-up is recommended.
[2024-06-15 08:43] LABS: Base Excess 3.5 mmol/L (-2.0-3.0)
[2024-06-15] MEDS: AZTREONAM 1GM INJ 1 GM in D5W 5% 50 ML IV ONE (14:00)
[2024-06-15] MEDS: fentaNYL Drip 2500mCg/250mlNS 250 ML IV SCH (16:14)
[2024-06-15] MEDS: AZTREONAM 1GM INJ 2 GM in D5W 5% 100 ML IV SCH (21:18)
[2024-06-15] MEDS: POTASSIUM ACETATE IV NR (21:20)
[2024-06-15] MEDS: SODIUM CHLORIDE IV NR (21:20)
[2024-06-15] MEDS: FAT EMULSION IV NR (21:20)
[2024-06-15] MEDS: [UNRECOGNIZED DRUG - OTHER] IV NR (21:20)
--- NOTE | 2024-06-15 22:56 | DVHPN2 ---
Progress Note - Dictate Date Seen: Jun 15, 2024 Medical Necessity Reason Pt with a Central, PICC or Fol: Yes The following are medically ne: Olsen Catheter Reason for olsen catheter: Strict I&O Subjective Patient seen and examined at bedside. Intubated on mechanical ventilator. Overnight events reviewed. vital signs Vital Sign Date Time Temp Pulse Resp B/P (MAP) Pulse Ox O2 Delivery O2 Flow Rate FiO2 06/15/24 22:15 83 17 102/41 (61) 100 107/42 (63) 06/15/24 22:10 30 06/15/24 22:00 Mechanical Ventilator+ 06/15/24 20:00 98.3 98.3 Total Intake and Output 06/14/24 06/14/24 06/15/24 15:00 23:00 07:00 Intake Total 952.441 ml 617.304 ml 950.704 ml Output Total 1075 ml 1910 ml Balance 952.441 ml -457.696 ml -959.296 ml medications Current Medications Medications Dose Ordered Sig/Amy Route Start Time Stop Time Status Last Admin Dose Admin Digoxin 0.125 mg DAILY PO 05/19/24 10:00 06/15/24 07:59 0.125 MG Potassium Chloride 100 ml @ 50 mls/hr Q2H IV 05/27/24 17:15 05/28/24 01:14 UNV Amino Acids 0 ml @ 0 mls/hr PER PHARMACY IV 05/30/24 12:00 Diagnostic Test (Pha) 1 strip Q6HR 05/30/24 18:00 06/15/24 17:03 1 STRIP Insulin Human Regular FOLLOW SLIDING SCALE Q6HR SC 05/30/24 18:00 06/11/24 18:33 2 UNITS Dextrose 50 ml UD IV 05/30/24 12:15 Acetaminophen 650 mg Q6HP PRN PO 05/31/24 19:30 06/10/24 14:37 650 MG Midazolam HCl 50 ml @ 1 mls/hr Q24H IV 06/08/24 20:15 06/13/24 21:49 4 MLS/HR Norepinephrine Bitartrate 32 mg/ Sodium Chloride 250 ml @ 0.938 mls/ hr Q24H IV 06/11/24 15:30 06/15/24 00:42 4.688 MLS/HR Vancomycin HCl 250 ml @ 250 mls/hr Q8HR@0200,1000,1800 IV 06/11/24 19:00 06/15/24 17:10 250 MLS/HR Vancomycin HCl 0 ml @ 0 mls/hr UD IV 06/11/24 18:45 Spironolactone 25 mg DAILY GT 06/13/24 10:00 06/15/24 08:00 25 MG Potassium Chloride 100 ml @ 50 mls/hr Q2H IV 06/13/24 12:45 06/13/24 16:44 UNV Magnesium Sulfate/ Dextrose 100 ml @ 100 mls/hr Q1HR IV 06/13/24 13:00 06/13/24 14:59 UNV Iron Sucrose 110 ml @ 110 mls/hr DAILY@1200 IV 06/14/24 12:00 06/18/24 12:59 06/15/24 10:25 110 MLS/HR Cefepime HCl 50 ml @ 12.5 mls/hr Q8HR IV 06/13/24 14:00 UNV Enoxaparin Sodium 30 mg BID SC 06/14/24 22:00 06/15/24 21:17 30 MG Furosemide 100 mg/ Sodium Chloride 110 ml @ 4.4 mls/hr Q24H IV 06/14/24 14:15 06/15/24 10:33 4.4 MLS/HR Fat Emulsion Intravenous 100 ml/Sodium Chloride 20 meq/ Potassium Acetate 10 meq/Potassium Phosphate 35.2 meq/Magnesium Sulfate 22 meq/ Multivitamins 10 ml/Amino Acids/ Dextrose 1,483.5 ml @ 62 mls/hr [id number] IV 06/15/24 22:00 06/16/24 21:59 06/15/24 21:20 62 MLS/HR Aztreonam 2 gm/ Dextrose 100 ml @ 100 mls/hr Q8HR IV 06/15/24 22:00 06/15/24 21:18 100 MLS/HR Fentanyl Citrate 250 ml @ 2.5 mls/hr Q24H IV 06/15/24 16:00 06/15/24 16:14 5 MLS/HR objective Gen.: Patient lying in bed in medical ICU. Intubated on mechanical ventilator. Head: Normocephalic, atraumatic. Eyes: PERRLA. Ears: Normal external anatomy. Throat: Endotracheal tube and orogastric tube in place. Neck: Supple, trachea midline. Chest: Transmitted breath sounds bilaterally. Decreased air entry bilaterally. No wheezing. Bibasilar crackles. Cardio vascular: Positive S1, positive S2. Regular rate and rhythm. Abdomen: Positive bowel sounds in all 4 quadrants. Soft, nontender, nondistended. : Olsen in place. Normal external genitalia. Rectal: Deferred Skin: Warm, dry. Intact. Extremities: 2+ radial pulses bilaterally. No lower extremity edema. Neuro: Off sedation laboratory and microbiology Laboratory Tests 06/15/24 04:34 Test 06/15/24 04:34 Range/Units Serum Glucose 109 H 74-106 mg/dL Assessment/Plan Impression: Acute hypoxic respiratory failure Mechanical ventilator Pleural effusion, right Atelectasis CHF exacerbation Pulmonary embolism Obesity with a BMI of 30.1 Pneumonia, likely gram negative Sacral wound Events: Remains on vent support On assist control with respiratory rate of 16, tidal volume 550, PEEP of 5, FiO2 at 30%. Patient failed CPAP - tachypnea despite increased PS. Obtain ABG in 1 hour. Chest tubes were flushed. Decrease suction to -30 cmH2O CXR demonstrates basilar pneumothorax. Two chest tubes in place. Chest tubes with 10 mL/5 mL sanguineous fluid Alexandru chest tube: 20 cm H2O Large-bore chest tube: 40 cm H2O Off sedation On Fentanyl for analgesia On pressors for hemodynamic support. Levophed 6 mcg/min Titrate to keep MAP above 65 mmHg/SBP above 90 mmHg Improving pressor requirements On Eliquis for PE Continue antibiotics TPN for nutritional support Diurese as tolerated w/ Lasix drip Monitor renal function Monitor electrolytes. Supplement as necessary. On IV fluids at 100 mL/hr. Surgery recs appreciated. Wound care SBT/BAM Poor prognosis Recommend Trach/PEG for liberation from vent. 06/09/24 - S/p bronchoscopy - removed copious secretions from L1-L10 06/09/24 - S/p right thoracentesis - 550 ml joycelyn fluid removed from right pleural space. 06/05/24 - S/p left thoracentesis on 950 mL's of joycelyn colored fluid removed from left pleural space. 06/03/24 - S/p bronchoscopy - cleared mucous plugging from L6-L10, L1-L5 and R1- R3 06/03/24 - S/p right thoracentesis - 1700 mL of serosanguineous fluid removed from R pleural space. S/p bronchoscopy w/ RML BAL on 05/28/24 - Cleared bloody secretions from L1-L10 and R1-R10 S/p cardioversion on 05/27/24 Labs and imaging reviewed. Rest of plan as noted below. Plan: s/p intubation on mechanical ventilator Status post right thoracentesis with removal of 2200 mL ABG reviewed. Alkalemia due to contraction alkalosis. Hypoxemia with a PO2 of 42 mmHg. Patient was emergently intubated and placed on mechanical ventilation. Currently on assist control with respiratory rate of 16, tidal volume 550, PEEP of 5, FiO2 at 30%. Titrate FIO2 to keep O2 saturation above 92%. VAP bundle Daily ABG and CXR while intubated. Off sedation On pressors for hemodynamic support. Titrate to keep MAP above 65 mmHg/SBP above 90 mmHg. Continue antibiotics F/u cultures. Sputum cultures grew Staph aureus and Pseudomonas aeruginosa. Monitor renal function due to Acute kidney injury. Monitor electrolytes. Supplement as necessary. Monitor ins and outs Maintain euvolemia Cardiology recommendations appreciated. Nutritional support. Accu-Cheks, ISS. GI/DVT prophylaxis. Condition: Critical Prognosis: Poor given multiple comorbidities. Rest of plan per hospitalist and other consultants. A total of 35 minutes of critical care time was spent reviewing the patient record, examining the patient, making a diagnostic and therapeutic plan, discussing this plan with the medical personnel, following up on diagnostic studies and following the patient for clinical stability excluding any and all procedures. At least 50% of this time was spent in direct, [id number] contact. Thank you Dr. Conn for allowing me to participate in this patient's care. Further recommendations will depend on patient's clinical course. Please do not hesitate to contact me if you have any questions or concerns. This medical document was created using an electronic medical record system with [employer] dictation system. Although this document has been carefully reviewed, there may still be some phonetic and typographical errors. These areas are purely typographical due to imperfections of the software programs, and do not reflect any compromise in the patient's medical care. Dietary Evaluation Review Comments: 1. consider Renal Specific 70g protein restriction witn 2GNa, 3K, low Phos, if no diaylsis needed. 2. consider Renal Standard 2gn, 3K, low phosphate diet if Pt is on dialysis. 3. encourage and monitor po intake to meet 75% of his needs. Expected Outcomes/Goals: avoid uremic symptoms, gradual healed wounds. Plan discussed with: Other (CALEB Fernando) Critical Care Time(min): 35 BOGDAN MANN MD Jun 15, 2024 22:56
[2024-06-16] VITALS (104 sets, daily range): BP systolic 83–192; BP diastolic 21–155; PULSE 73–119; RESP 11–31; TEMP 97.6–99.2; O2SAT 92–100
[2024-06-16 01:51] LABS: Hematocrit 26.7 % (41.0-53.0)
[2024-06-16 01:52] LABS: Hemoglobin 8.6 g/dL (13.5-17.5); Mean Corpuscular Hemoglobin 26.2 pg (28.0-32.0); Mean Corpuscular Hgb Conc. 32.3 g/dL (32.0-36.0); Platelet Count (auto) 397 10^3/uL (140-450); White Blood Cell 24.4 10^3/uL (4.4-10.8)
[2024-06-16 01:55] LABS: Basophils % (manual) 0 (0.0-2.0); Blast Cells 0; Metamyelocytes % 0; Myelocytes % 0; Promyelocytes % 0; Reactive Lymphocytes 0
[2024-06-16 02:05] LABS: Anion Gap 3 (5-15); BUN/Creatinine Ratio 71.4 (10.0-20.0); Carbon Dioxide 30 mmol/L (20-31); Chloride 104 mmol/L (98-107); Magnesium 2.1 mg/dL (1.6-2.6); Phosphorus 4.4 mg/dL (2.4-5.1); Potassium 3.6 mmol/L (3.5-5.1); Sodium 137 mmol/L (136-145)
[2024-06-16 02:09] LABS: Alanine Aminotransferase 269 U/L (7-40); Albumin 1.9 g/dL (3.2-4.8); Alkaline Phosphatase 255 U/L (46-116); Aspartate Aminotransferase 321 U/L (13-40); Bilirubin, Total 5.7 mg/dL (0.2-1.0); Blood Urea Nitrogen 35 mg/dL (9-23); Calcium 8.1 mg/dL (8.7-10.4); Glucose 118 mg/dL (74-106); Total Protein 4.7 g/dL (5.7-8.2)
[2024-06-16 03:13] LABS: Band Neutrophils % (manual) 4; Eosinophils % (manual) 1 (0-7); Lymphocytes % (manual) 9 (10.0-50.0); Monocytes % (manual) 3 (0-12); Platelet Estimate Adequate
--- NOTE | 2024-06-16 05:43 | DVH ---
CHEST RADIOGRAPH Indication: intubated Technique: Single frontal view of the chest was obtained Comparison: XY CHEST PORTABLE on DOS: 06/15/24, XY CHEST PORTABLE on DOS: 06/14/24, XY CHEST XRAY 1 VIE W on DOS: 06/13/24 IMPRESSION: The heart is enlarged. Small to moderate left pleural effusion with moderate pulmonary vascular conge stion. Right basilar pneumothorax is redemonstrated with increased right apical pneumothorax. Right pleural catheter is present. Support lines and tubes appear otherwise unchanged. Critical Findings Critical Result: Pneumothorax Findings discussed with CLAEB Fernando at 06/16/2024 08:42 AM, and acknowledged receipt and understanding of the findings. ..
[2024-06-16 07:46] LABS: Base Excess 5.5 mmol/L (-2.0-3.0)
--- NOTE | 2024-06-16 09:55 | DVH ---
CLINICAL INFORMATION: 63 years old, Male; PNEOMOTHORAX. TECHNIQUE: Axial CT imaging of the chest was performed without IV contrast. Sagittal and coronal ref ormatted images were made, stored and reviewed. Evaluation is limited without IV contrast. One or mor e of the following dose reduction techniques were used: Automated exposure control. Adjustment of mA and/or kV according to patient size. CTDIvol = 16.17 mGy DLP = 621.19 mGy-cm COMPARISON: Chest radiograph dated 126 FINDINGS: Motion limited study. Aorta: Ectatic ascending aorta measuring up to 4 cm in diameter, although suboptimally evaluated due to artifact. Cardiac: Mild moderate cardiomegaly. Mediastinum/charla: Endotracheal tube terminates above the level of the fredo. Enteric tube reaches th e stomach. Trace pneumomediastinum. Lungs: There is a right chest tube in place with moderate right pleural fluid collection with near co mplete collapse of the right lower lobe. There is also a or anteriorly positioned right pleural isabelle ter, partially within the anterior right pneumothorax and coursing along the lateral aspect of the ri ght upper lung. Moderate pneumothorax along the anterior aspect of the right lung. Small left anterio r pneumothorax. And moderate left pleural fluid collection with associated collapse of the left lower lobe. Pulmonary arteries: No gross abnormality. Chest wall: Small amount of subcutaneous emphysema adjacent to the more anteriorly positioned right p leural catheter in the right anterior chest wall. There is diffuse body wall edema / anasarca. Upper abdomen: Nodular contour of the liver, may be seen with cirrhosis. Partially visualized abdomi nal ascites. Exophytic cyst at the posterior aspect of the right kidney. Bones: No fracture or suspicious intraosseous lesions. IMPRESSION: 1. Motion limited study. 2. Moderate right anterior pneumothorax with right pleural catheter partially within the pneumothorax as described above. 3. Moderate right pleural fluid collection with near complete collapse of the right lower lobe chest tube in place within the collection. 4. Small left anterior pneumothorax. 5. Moderate left pleural fluid collection with complete collapse of the left lower lobe. 6. Small amount of pneumomediastinum, may be tracking from the bilateral pneumothoraces. 7. Endotracheal tube and enteric tube in place. 8. Ectatic ascending aorta. 9. Additional findings as detailed above. Critical Findings: Bilateral pneumothorax, pleural fluid collections, and lobar collapse indicate urg ent medical attention. Findings discussed with the nurse taking care of the patient in the ICU by Dr. Weiss by phone at 06/16/2024 at 11:48 a.m. BUSINESS WRITER, who acknowledged receipt and understanding of the findings and will noti fy the ordering physician, who was unavailable at the time.
[2024-06-16] MEDS: POTASSIUM CHL 20MEQ/100ML 100 ML IV SCH (11:15)
[2024-06-16] MEDS: AMIODARONE 360mg/200mL PREMIX 200 ML IV SCH (12:12)
--- NOTE | 2024-06-16 12:58 | ECG ---
[facility] Test Date: 2024-06-16 Test Time: 10:15:17 Pat Name: JOMAR GOFF Department: Respiratoy Room: 0261 A Gender: M Front Desk Clerk: : [id number] Requested By: ARTURO CUELLAR Order Number: [id number] Reading MD: Aubrie Raymundo Measurements Intervals [place] Rate: 113 P: 0 NH: 0 QRS: -4 QRSD: 98 T: 0 QT: 326 QTc: 447 Interpretive Statements Atrial flutter Paired ventricular premature complexes Borderline repolarization abnormality Electronically Signed On 06-17-2024 9:03:04 PST by Aubrie Raymundo Please click the below link to view image of tracing.
--- NOTE | 2024-06-16 14:11 | DVHINCON2 ---
Date of service: Jun 16, 2024 History of Present Illness 63-year-old male with a history of CHF and pulmonary embolism currently intubated in the ICU noted to have necrotic pressure ulcers. Past Medical History CHF. Pulmonary embolism. Past Surgical History No recent surgeries. Family History: Patient reports no known family medical history. Family History Noncontributory Social History No alcohol, tobacco, IV drug use Allergies: Coded Allergies: NO KNOWN ALLERGIES (Unverified , 03/11/24) Home Meds Active Scripts Bumetanide (Bumetanide) 2 Mg Tab, 1 TAB PO BID for 30 Days, #60 TAB 0 Refills Prov:FARHAD FLORES MD 03/19/24 Metoprolol Succinate (Metoprolol Succinate Er) 50 Mg Tab, 1 TAB PO DAILY for 30 Days, #30 TAB 5 Refills Prov:FARHAD FLORES MD 03/19/24 Sacubitril-Valsartan (Entresto 24-26 mg) 1 Tab Tab, 1 TAB PO BID for 30 Days, #60 TAB Prov:FARHAD FLORES MD 03/19/24 Doxycycline Monohydrate (Doxycycline Monohydrate) 100 Mg Cap, 1 CAP PO BID for 14 Days, #28 CAP Prov:FARHAD FLORES MD 03/19/24 Reported Medications Spironolactone (Spironolactone) 50 Mg Tab, 1 TAB PO DAILY for 30 Days, #30 05/21/24 Ursodiol (Ursodiol) 300 Mg Cap, 1 TAB PO BID for 90 Days, #180 03/18/24 Terbinafine Hcl (Terbinafine Hcl) 250 Mg Tab, 1 TAB PO DAILY for 90 Days, #90 03/18/24 Furosemide (Furosemide) 20 Mg Tab, 1 TAB PO DAILY, #90 TAB 1 Refill 03/12/24 Terbinafine Hcl (Topical) (Lamisil At [employer]) 1 % Cre, 1 % EX, CRE 03/12/24 Losartan Potassium (Losartan Potassium) 50 Mg Tab, 1 TAB PO DAILY, #30 TAB 5 Refills 03/12/24 Current Medications Current Medications Medications (Trade) Dose Ordered Sig/Amy Route PRN Reason Start Time Stop Time Status Last Admin Fat Emulsion Intravenous 100 ml/Sodium Chloride 20 meq/ Potassium Acetate 10 meq/Potassium Phosphate 35.2 meq/Magnesium Sulfate 22 meq/ Multivitamins 10 ml/Amino Acids/ Dextrose 1,483.5 ml @ 62 mls/hr [id number] IV 06/15/24 22:00 06/16/24 21:59 06/15/24 21:20 Aztreonam 2 gm/ Dextrose 100 ml @ 100 mls/hr Q8HR IV 06/15/24 22:00 06/16/24 12:35 Fentanyl Citrate 250 ml @ 2.5 mls/hr Q24H IV 06/15/24 16:00 06/16/24 00:44 Fat Emulsion Intravenous 100 ml/Sodium Chloride 20 meq/ Potassium Chloride 40 meq/ Potassium Phosphate 22 meq/ Magnesium Sulfate 22 meq/ Multivitamins 10 ml/Amino Acids/ Dextrose 1,495.5 ml @ 62 mls/hr Q24H8M IV 06/16/24 22:00 06/17/24 21:59 Potassium Chloride 100 ml @ 50 mls/hr Q2H IV 06/16/24 11:15 06/16/24 15:14 06/16/24 13:06 Vancomycin HCl 250 ml @ 250 mls/hr Q12H IV 06/16/24 18:00 Vital Signs Vital Signs Date Time Temp Pulse Resp B/P (MAP) Pulse Ox O2 Delivery O2 Flow Rate FiO2 06/16/24 13:35 91 16 118/51 (73) 97 30 06/16/24 12:00 99.1 99.1 06/16/24 12:00 Mechanical Ventilator+ Physical Exam GEN: Age-appropriate male intubated and sedated. HEENT: Normocephalic atraumatic. Moist mucous membranes. Anicteric sclerae. CV: RRR Respiratory: Coarse breath sounds ABD: Soft Skin: There is a 6 x 5 cm dry necrotic eschar involving the sacral region without purulent drainage. Ulcer is unstageable. Labs/Diagnostic Data Labs Test 06/16/24 11:47 06/16/24 07:35 06/16/24 02:44 06/16/24 01:33 Range/Units POC Glucose 102 70-106 mg/dl Blood Gas Specimen Type Arterial Blood Gas Sample Site Arterial line Blood Gas Patient Temperature 37.0 Arterial Blood Date Drawn [id number] Arterial Blood pH 7.482 H 7.350-7.450 Arterial Blood Partial Pressure CO2 40.2 35.0-48.0 mmHg Arterial Blood Partial Pressure O2 66.7 L 83.0-108.0 mmHg Arterial Blood HCO3 29.4 H 21.0-28.0 mmol/L Arterial Blood Oxygen Saturation 91.1 L 94.0-98.0 % Arterial Blood Base Excess 5.5 H -2.0-3.0 mmol/L Arterial Blood Oxyhemoglobin 90.1 L 94.0-98.0 % Arterial Blood Carboxyhemoglobin 0.6 0.5-1.5 % Arterial Blood Methemoglobin 0.5 0.0-1.5 % Mark Test N/a Blood Gas Total Hemoglobin 9.40 L 13.5-17.5 g/dL Blood Gas Set Respiration Rate 16.0 Blood Gas Modality Vent - ac FiO2 % 30.0 Blood Gas Tidal Volume 550.0 Blood Gas PEEP or CPAP 5.0 Vancomycin Level Trough 27.6 H 5-10 ug/mL White Blood Count 24.4 H 4.4-10.8 10^3/uL Red Blood Count 3.30 L 4.5-5.90 10^6/uL Hemoglobin 8.6 L 13.5-17.5 g/dL Hematocrit 26.7 L 41.0-53.0 % Mean Corpuscular Volume 81.0 80.0-100.0 fL Mean Corpuscular Hemoglobin 26.2 L 28.0-32.0 pg Mean Corpuscular Hemoglobin Concent 32.3 32.0-36.0 g/dL Red Cell Distribution Width 17.0 H 11.8-14.3 % Platelet Count 397 140-450 10^3/uL Mean Platelet Volume 8.2 6.9-10.8 fL Neutrophils (%) (Auto) 37.0-80.0 % Lymphocytes (%) (Auto) 10.0-50.0 % Monocytes (%) (Auto) 0.0-12.0 % Basophils (%) (Auto) 0.0-2.0 % Neutrophils # (Auto) 1.6-8.6 10 ^3/uL Lymphocytes # (Auto) 0.4-5.4 10 ^3/uL Monocytes # (Auto) 0-1.3 10 ^3/uL Differential Total Cells Counted 100.0 100 Neutrophils % (Manual) 83 H 37.0-80.0 Band Neutrophils % (Manual) 4 Lymphocytes % (Manual) 9 L 10.0-50.0 Monocytes % (Manual) 3 0-12 Eosinophils % (Manual) 1 0-7 Basophils % (Manual) 0 0.0-2.0 Metamyelocytes % (manual) 0 Myelocytes % (Manual) 0 Promyelocytes % (Manual) 0 Blast Cells % (Manual) 0 Reactive Lymphocytes 0 Platelet Estimate Adequate Sodium Level 137 136-145 mmol/L Potassium Level 3.6 3.5-5.1 mmol/L Chloride Level 104 98-107 mmol/L Carbon Dioxide Level 30 20-31 mmol/L Anion Gap 3 L 5-15 Blood Urea Nitrogen 35 H 9-23 mg/dL Creatinine 0.49 L 0.700-1.30 mg/dL Glomerular Filtration Rate Calc 115 >90 mL/min BUN/Creatinine Ratio 71.4 H 10.0-20.0 Serum Glucose 118 H 74-106 mg/dL Calcium Level 8.1 L 8.7-10.4 mg/dL Phosphorus Level 4.4 2.4-5.1 mg/dL Magnesium Level 2.1 1.6-2.6 mg/dL Total Bilirubin 5.7 H 0.2-1.0 mg/dL Aspartate Amino Transferase (AST) 321 H 13-40 U/L Alanine Aminotransferase (ALT) 269 H 7-40 U/L Alkaline Phosphatase 255 H 46-116 U/L Total Protein 4.7 L 5.7-8.2 g/dL Albumin 1.9 L 3.2-4.8 g/dL Test 06/13/24 04:50 06/10/24 15:15 06/09/24 05:05 06/08/24 18:38 Range/Units Eosinophils (%) (Auto) 2.4 0.0-7.0 % Eosinophils # (Auto) 0.4 0-0.8 10 ^3/uL Basophils # (Auto) 0.1 0-0.2 10 ^3/uL Nucleated Red Blood Cells 0.1 % B-Type Natriuretic Peptide 570.64 0-100 pg/mL Lactic Acid Level 1.0 0.4-2.0 mmol/L Triglycerides Level 88 < 150 mg/dL Digoxin Level 0.23 L 0.8-2 ng/mL Test 06/08/24 10:33 06/07/24 11:30 06/05/24 22:10 06/03/24 14:48 Range/Units Blood Gas Spontaneous Rate 24 Blood Gas Spontaneous Tidal Volume 514 Blood Gas Inspiratory Pressure 19.0 Bl Gas Inspiratory/Expiratory Ratio 1:2.7 Specimen Drawn By kuldeep rt Blood Gas Pressure Support 10 Body Fluid Source Pleural fluid Body Fluid pH 8.0 Body Fluid WBC (Manual) 1890 H 0-200 CUMM Body Fluid RBC (Manual) 10695 H 0-2000 CUMM Body Fluid Mononuclear Cells 82 % Body Fluid Polymorphonuclear Cells 18 0-25 % Body Fluid Glucose 49 . mg/dL Body Fluid Total Protein 2.0 . g/dL Body Fluid Lactate Dehydrogenase 695 . IU/L Blood Gas Critical Value Read Back Yes Blood Gas Notified Whom blue Scott md Blood Gas Notified Time [id number] Blood Gas Notified By Frank echevarria foreign exchange trader Test 05/24/24 13:10 05/24/24 07:24 05/24/24 06:55 05/22/24 19:05 Range/Units Blood Gas EPAP 5 Blood Gas IPAP 14 Blood Gas Liter Flow 5.00 Ammonia 22 11-32 umol/L Prothrombin Time 17.7 H 9.3-11.8 sec Prothrombin Time INR 1.74 H 0.9-1.15 Activated Partial Thromboplast Time 54.8 H 24.5-34.5 SEC Test 05/19/24 10:08 Range/Units Urine Color Yellow Yellow Urine Clarity Turbid H Clear Urine pH 5.0 5.0-9.0 Urine Specific [place] 1.012 1.001-1.035 Urine Protein 1+ H Negative Urine Ketones Negative Negative Urine Blood Negative Negative /uL Urine Nitrite Negative Negative Urine Bilirubin Negative Negative Urine Urobilinogen 3 H Negative mg/dL Urine Leukocyte Esterase Negative Negative /uL Urine RBC 1 0 - 3 /hpf Urine WBC 3 0 - 3 /hpf Urine Squamous Epithelial Cells Few <5 /hpf Urine Bacteria None seen None Seen /hpf Urine Hyaline Casts Many 0 - 2 /lpf Urine Mucus Few None Seen Urine Glucose Normal Normal mg/dL Microbiology Date/Time Source Procedure Growth Status 06/10/24 17:12 Blood Blood Culture - Final NO GROWTH AFTER 5 DAYS OF INCUBATION. Complete 06/10/24 16:00 Urine - [place] Urine Culture - Final Pseudomonas aeruginosa Enterococcus casseliflavus Complete 06/09/24 14:37 Bronchial Washings Gram Stain - Final Complete 06/09/24 14:37 Respiratory Culture - Final Staphylococcus aureus Pseudomonas aeruginosa Complete 06/09/24 14:30 Pleural Fluid Gram Stain - Final Complete 06/09/24 14:30 Pleural Fluid Body Fluid Culture - Final Complete 05/28/24 15:51 Nose MRSA Screen - Final Complete Assessment 1. Unstageable sacral pressure ulcer with necrosis Plan/Recommendation 1. Surgical debridement of the necrotic sacral pressure ulcer. Plan discussed with: Other MIKEL ENAMORADO MD Jun 16, 2024 14:11
[2024-06-16] MEDS: VANCOMYCIN 1GM/250ML KIT 250 ML IV SCH (17:48)
[2024-06-16 18:32] LABS: Base Excess 3.4 mmol/L (-2.0-3.0)
[2024-06-16] MEDS: TPN PER PHARMACY IV NR (21:12)
--- NOTE | 2024-06-16 22:27 | DVHPN2 ---
Progress Note - Dictate Date Seen: Jun 16, 2024 Medical Necessity Reason Pt with a Central, PICC or Fol: Yes The following are medically ne: Olsen Catheter Reason for olsen catheter: Strict I&O Subjective Patient seen and examined at bedside. Sedated, intubated on mechanical ventilator. Overnight events reviewed. vital signs Vital Sign Date Time Temp Pulse Resp B/P (MAP) Pulse Ox O2 Delivery O2 Flow Rate FiO2 06/16/24 22:15 74 17 92/33 (52) 99 92/33 (52) 06/16/24 22:00 40 06/16/24 22:00 Mechanical Ventilator+ 06/16/24 20:00 98.1 98.1 Total Intake and Output 06/15/24 06/15/24 06/16/24 15:00 23:00 07:00 Intake Total 1002.263 ml 917.204 ml 661.202 ml Output Total 1460 ml 1875 ml Balance 1002.263 ml -542.796 ml -1213.798 ml medications Current Medications Medications Dose Ordered Sig/Amy Route Start Time Stop Time Status Last Admin Dose Admin Digoxin 0.125 mg DAILY PO 05/19/24 10:00 06/16/24 07:30 0.125 MG Potassium Chloride 100 ml @ 50 mls/hr Q2H IV 05/27/24 17:15 05/28/24 01:14 UNV Amino Acids 0 ml @ 0 mls/hr PER PHARMACY IV 05/30/24 12:00 Diagnostic Test (Pha) 1 strip Q6HR 05/30/24 18:00 06/16/24 17:25 1 STRIP Insulin Human Regular FOLLOW SLIDING SCALE Q6HR SC 05/30/24 18:00 06/11/24 18:33 2 UNITS Dextrose 50 ml UD IV 05/30/24 12:15 Acetaminophen 650 mg Q6HP PRN PO 05/31/24 19:30 06/10/24 14:37 650 MG Midazolam HCl 50 ml @ 1 mls/hr Q24H IV 06/08/24 20:15 06/16/24 16:49 3 MLS/HR Norepinephrine Bitartrate 32 mg/ Sodium Chloride 250 ml @ 0.938 mls/ hr Q24H IV 06/11/24 15:30 06/15/24 00:42 4.688 MLS/HR Vancomycin HCl 0 ml @ 0 mls/hr UD IV 06/11/24 18:45 Spironolactone 25 mg DAILY GT 06/13/24 10:00 06/16/24 07:30 25 MG Potassium Chloride 100 ml @ 50 mls/hr Q2H IV 06/13/24 12:45 06/13/24 16:44 UNV Magnesium Sulfate/ Dextrose 100 ml @ 100 mls/hr Q1HR IV 06/13/24 13:00 06/13/24 14:59 UNV Iron Sucrose 110 ml @ 110 mls/hr DAILY@1200 IV 06/14/24 12:00 06/18/24 12:59 06/16/24 11:25 110 MLS/HR Cefepime HCl 50 ml @ 12.5 mls/hr Q8HR IV 06/13/24 14:00 UNV Enoxaparin Sodium 30 mg BID SC 06/14/24 22:00 06/16/24 07:31 30 MG Furosemide 100 mg/ Sodium Chloride 110 ml @ 4.4 mls/hr Q24H IV 06/14/24 14:15 06/16/24 12:29 4.4 MLS/HR Aztreonam 2 gm/ Dextrose 100 ml @ 100 mls/hr Q8HR IV 06/15/24 22:00 06/16/24 21:09 100 MLS/HR Fentanyl Citrate 250 ml @ 2.5 mls/hr Q24H IV 06/15/24 16:00 06/16/24 17:48 20 MLS/HR Fat Emulsion Intravenous 100 ml/Sodium Chloride 20 meq/ Potassium Chloride 40 meq/ Potassium Phosphate 22 meq/ Magnesium Sulfate 22 meq/ Multivitamins 10 ml/Amino Acids/ Dextrose 1,495.5 ml @ 62 mls/hr Q24H8M IV 06/16/24 22:00 06/17/24 21:59 06/16/24 21:12 62 MLS/HR Vancomycin HCl 250 ml @ 250 mls/hr Q12H IV 06/16/24 18:00 06/16/24 17:48 250 MLS/HR objective Gen.: Patient lying in bed in medical ICU. Sedated, intubated on mechanical ventilator. Head: Normocephalic, atraumatic. Eyes: PERRLA. Ears: Normal external anatomy. Throat: Endotracheal tube and orogastric tube in place. Neck: Supple, trachea midline. Chest: Transmitted breath sounds bilaterally. Decreased air entry bilaterally. No wheezing. Bibasilar crackles. Cardio vascular: Positive S1, positive S2. Regular rate and rhythm. Abdomen: Positive bowel sounds in all 4 quadrants. Soft, nontender, nondistended. : Olsen in place. Normal external genitalia. Rectal: Deferred Skin: Warm, dry. Intact. Extremities: 2+ radial pulses bilaterally. No lower extremity edema. Neuro: Sedated laboratory and microbiology Laboratory Tests 06/16/24 01:33 Test 06/16/24 01:33 Range/Units Serum Glucose 118 H 74-106 mg/dL Assessment/Plan Impression: Acute hypoxic respiratory failure Mechanical ventilator Pleural effusion, right Atelectasis CHF exacerbation Pulmonary embolism Obesity with a BMI of 30.1 Pneumonia, likely gram negative Sacral wound Events: Remains on vent support On assist control with respiratory rate of 16, tidal volume 550 -->500, PEEP of 5, FiO2 at 30 -->40%. CT chest reviewed: Moderate right anterior pneumothorax with right pleural catheter partially within the pneumothorax as described above. Moderate right pleural fluid collection with near complete collapse of the right lower lobe chest tube in place within the collection. Small left anterior pneumothorax. Moderate left pleural fluid collection with complete collapse of the left lower lobe. Small amount of pneumomediastinum, may be tracking from the bilateral pneumothoraces. Chest tubes to -30 cmH2O Monitor output Sedated on Versed On Fentanyl for analgesia On pressors for hemodynamic support. Levophed 12 mcg/min Titrate to keep MAP above 65 mmHg/SBP above 90 mmHg Increasing pressor requirements On Eliquis for PE Amiodarone drip Continue antibiotics TPN for nutritional support Diurese as tolerated w/ Lasix drip Monitor renal function Monitor electrolytes. Supplement as necessary. Supplement potassium On IV fluids at 100 mL/hr. Surgery recs appreciated. Debridement of sacral wound by Surgery Wound care SBT/BAM Poor prognosis Recommend Trach/PEG for liberation from vent. 06/09/24 - S/p bronchoscopy - removed copious secretions from L1-L10 06/09/24 - S/p right thoracentesis - 550 ml joycelyn fluid removed from right pleural space. 06/05/24 - S/p left thoracentesis on 950 mL's of joycelyn colored fluid removed from left pleural space. 06/03/24 - S/p bronchoscopy - cleared mucous plugging from L6-L10, L1-L5 and R1- R3 06/03/24 - S/p right thoracentesis - 1700 mL of serosanguineous fluid removed from R pleural space. S/p bronchoscopy w/ RML BAL on 05/28/24 - Cleared bloody secretions from L1-L10 and R1-R10 S/p cardioversion on 05/27/24 Labs and imaging reviewed. Rest of plan as noted below. Plan: s/p intubation on mechanical ventilator Status post right thoracentesis with removal of 2200 mL ABG reviewed. Alkalemia due to contraction alkalosis. Hypoxemia with a PO2 of 42 mmHg. Patient was emergently intubated and placed on mechanical ventilation. Currently on assist control with respiratory rate of 16, tidal volume 500, PEEP of 5, FiO2 at 40%. Titrate FIO2 to keep O2 saturation above 92%. VAP bundle Daily ABG and CXR while intubated. Sedated On pressors for hemodynamic support. Titrate to keep MAP above 65 mmHg/SBP above 90 mmHg. Continue antibiotics F/u cultures. Sputum cultures grew Staph aureus and Pseudomonas aeruginosa. Monitor renal function due to Acute kidney injury. Monitor electrolytes. Supplement as necessary. Monitor ins and outs Maintain euvolemia Cardiology recommendations appreciated. Nutritional support. Accu-Cheks, ISS. GI/DVT prophylaxis. Condition: Critical Prognosis: Poor given multiple comorbidities. Rest of plan per hospitalist and other consultants. A total of 35 minutes of critical care time was spent reviewing the patient record, examining the patient, making a diagnostic and therapeutic plan, discussing this plan with the medical personnel, following up on diagnostic studies and following the patient for clinical stability excluding any and all procedures. At least 50% of this time was spent in direct, [id number] contact. Thank you Dr. Conn for allowing me to participate in this patient's care. Further recommendations will depend on patient's clinical course. Please do not hesitate to contact me if you have any questions or concerns. This medical document was created using an electronic medical record system with [employer] system. Although this document has been carefully reviewed, there may still be some phonetic and typographical errors. These areas are purely typographical due to imperfections of the software programs, and do not reflect any compromise in the patient's medical care. Dietary Evaluation Review Comments: 1. consider Renal Specific 70g protein restriction witn 2GNa, 3K, low Phos, if no diaylsis needed. 2. consider Renal Standard 2gn, 3K, low phosphate diet if Pt is on dialysis. 3. encourage and monitor po intake to meet 75% of his needs. Expected Outcomes/Goals: avoid uremic symptoms, gradual healed wounds. Plan discussed with: Other (CALEB Elias) Critical Care Time(min): 35 BOGDAN MANN MD Jun 16, 2024 22:27
[2024-06-17] VITALS (106 sets, daily range): BP systolic 92–147; BP diastolic 20–58; PULSE 70–90; RESP 10–19; TEMP 97.2–98.6; O2SAT 94–100
[2024-06-17 05:09] LABS: Hemoglobin 8.2 g/dL (13.5-17.5); Mean Corpuscular Hemoglobin 26.2 pg (28.0-32.0); Red Blood Cells 3.12 10^6/uL (4.5-5.90)
[2024-06-17 05:11] LABS: Hematocrit 25.5 % (41.0-53.0); Mean Corpuscular Hgb Conc. 32.1 g/dL (32.0-36.0); Mean Corpuscular Volume 81.8 fL (80.0-100.0); Platelet Count (auto) 376 10^3/uL (140-450); White Blood Cell 21.1 10^3/uL (4.4-10.8)
[2024-06-17 05:18] LABS: Basophils % (manual) 0 (0.0-2.0); Blast Cells 0; Promyelocytes % 0; Reactive Lymphocytes 0
[2024-06-17 05:26] LABS: INR 1.19 (0.9-1.15); Partial Thromboplastin Time 35.9 SEC (24.5-34.5); Prothrombin Time 12.4 sec (9.3-11.8)
[2024-06-17 05:30] LABS: Anion Gap 6 (5-15); BUN/Creatinine Ratio 69.8 (10.0-20.0); Carbon Dioxide 30 mmol/L (20-31); Chloride 102 mmol/L (98-107); Magnesium 2.2 mg/dL (1.6-2.6); Phosphorus 4.5 mg/dL (2.4-5.1); Potassium 3.6 mmol/L (3.5-5.1); Sodium 138 mmol/L (136-145)
--- NOTE | 2024-06-17 05:32 | DVH ---
EXAM: XY CHEST PORTABLE Indication: pnuemothorax/ ventilator Technique: Single frontal view of the chest was obtained Comparison: XY CHEST PORTABLE on DOS: 06/16/24, XY CHEST PORTABLE on DOS: 06/15/24, XY CHEST PORTABLE o n DOS: 06/14/24, XY CHEST XRAY 1 VIEW on DOS: 06/13/24, XY CHEST XRAY 1 VIEW on DOS: 06/13/24 FINDINGS: Lines and Tubes: Right chest tube is visualized. Right pigtail catheter is visualized. Lungs: Multifocal consolidative opacities. Pleura: Moderate left and small right pleural effusion. Small right pneumothorax. Cardiomediastinal contours: Cardiomegaly. Bones: No acute osseous abnormality. IMPRESSION: No significant change compared to prior exam.
[2024-06-17 05:33] LABS: Alanine Aminotransferase 188 U/L (7-40); Albumin 1.9 g/dL (3.2-4.8); Alkaline Phosphatase 253 U/L (46-116); Aspartate Aminotransferase 146 U/L (13-40); Bilirubin, Total 4.4 mg/dL (0.2-1.0); Blood Urea Nitrogen 37 mg/dL (9-23); Calcium 8.2 mg/dL (8.7-10.4); Glucose 121 mg/dL (74-106); Total Protein 4.7 g/dL (5.7-8.2)
[2024-06-17 07:13] LABS: Band Neutrophils % (manual) 4; Eosinophils % (manual) 3 (0-7); Lymphocytes % (manual) 9 (10.0-50.0); Metamyelocytes % 1; Monocytes % (manual) 7 (0-12); Myelocytes % 1
[2024-06-17 07:14] LABS: Anisocytosis Slight; Platelet Estimate Adequate
[2024-06-17] MEDS ORDERED: PHENYLEPHRINE HCL 10 MG/ML VL ONE (07:22)
[2024-06-17 08:20] LABS: Base Excess 2.3 mmol/L (-2.0-3.0)
--- NOTE | 2024-06-17 13:02 | DVHPN2 ---
Progress Note - Dictate Date Seen: Jun 17, 2024 Medical Necessity Reason Pt with a Central, PICC or Fol: Yes The following are medically ne: Olsen Catheter Reason for olsen catheter: Strict I&O Subjective PT WITH SS COMPLEX INCRESEING SOB HARVEY LE EDEMA HFrEF CHRONIC AND ACUTE NOW WITH HEMOPTYSIS TACHYCARDIA CTA LUNG C/W PE ACUTE vital signs Vital Sign Date Time Temp Pulse Resp B/P (MAP) Pulse Ox O2 Delivery O2 Flow Rate FiO2 06/17/24 12:15 74 16 113/42 (65) 100 104/39 (60) 06/17/24 12:00 97.6 97.6 06/17/24 12:00 40 06/17/24 10:00 Mechanical Ventilator+ Total Intake and Output 06/16/24 06/16/24 06/17/24 15:00 23:00 07:00 Intake Total 1087.519 ml 1234.295 ml 1006.605 ml Output Total 1920 ml 1030 ml Balance 1087.519 ml -685.705 ml -23.395 ml medications Current Medications Medications Dose Ordered Sig/Amy Route Start Time Stop Time Status Last Admin Dose Admin Digoxin 0.125 mg DAILY PO 05/19/24 10:00 06/17/24 10:15 0.125 MG Potassium Chloride 100 ml @ 50 mls/hr Q2H IV 05/27/24 17:15 05/28/24 01:14 UNV Amino Acids 0 ml @ 0 mls/hr PER PHARMACY IV 05/30/24 12:00 Diagnostic Test (Pha) 1 strip Q6HR 05/30/24 18:00 06/17/24 12:19 1 STRIP Insulin Human Regular FOLLOW SLIDING SCALE Q6HR SC 05/30/24 18:00 06/11/24 18:33 2 UNITS Dextrose 50 ml UD IV 05/30/24 12:15 Acetaminophen 650 mg Q6HP PRN PO 05/31/24 19:30 06/10/24 14:37 650 MG Midazolam HCl 50 ml @ 1 mls/hr Q24H IV 06/08/24 20:15 06/17/24 05:30 3 MLS/HR Norepinephrine Bitartrate 32 mg/ Sodium Chloride 250 ml @ 0.938 mls/ hr Q24H IV 06/11/24 15:30 06/17/24 06:47 7.5 MLS/HR Vancomycin HCl 0 ml @ 0 mls/hr UD IV 06/11/24 18:45 Spironolactone 25 mg DAILY GT 06/13/24 10:00 06/17/24 10:15 25 MG Potassium Chloride 100 ml @ 50 mls/hr Q2H IV 06/13/24 12:45 06/13/24 16:44 UNV Magnesium Sulfate/ Dextrose 100 ml @ 100 mls/hr Q1HR IV 06/13/24 13:00 06/13/24 14:59 UNV Iron Sucrose 110 ml @ 110 mls/hr DAILY@1200 IV 06/14/24 12:00 06/18/24 12:59 06/17/24 12:28 110 MLS/HR Cefepime HCl 50 ml @ 12.5 mls/hr Q8HR IV 06/13/24 14:00 UNV Enoxaparin Sodium 30 mg BID SC 06/14/24 22:00 06/16/24 07:31 30 MG Furosemide 100 mg/ Sodium Chloride 110 ml @ 4.4 mls/hr Q24H IV 06/14/24 14:15 06/16/24 12:29 4.4 MLS/HR Aztreonam 2 gm/ Dextrose 100 ml @ 100 mls/hr Q8HR IV 06/15/24 22:00 06/17/24 04:55 100 MLS/HR Fentanyl Citrate 250 ml @ 2.5 mls/hr Q24H IV 06/15/24 16:00 06/17/24 05:32 20 MLS/HR Fat Emulsion Intravenous 100 ml/Sodium Chloride 20 meq/ Potassium Chloride 40 meq/ Potassium Phosphate 22 meq/ Magnesium Sulfate 22 meq/ Multivitamins 10 ml/Amino Acids/ Dextrose 1,495.5 ml @ 62 mls/hr Q24H8M IV 06/16/24 22:00 06/17/24 21:59 06/16/24 21:12 62 MLS/HR Vancomycin HCl 250 ml @ 250 mls/hr Q12H IV 06/16/24 18:00 06/17/24 06:20 250 MLS/HR Fat Emulsion Intravenous 150 ml/Sodium Chloride 40 meq/ Potassium Chloride 60 meq/ Magnesium Sulfate 20 meq/ Multivitamins 10 ml/Amino Acids/ Dextrose 1,605 ml @ 67 mls/hr [id number] IV 06/17/24 22:00 06/18/24 21:59 objective PUL DIFF RHONCHI JVD ANGLE OF THE JAW CV RR PMI DIFFUSE EXT 3+ EDEMA laboratory and microbiology Laboratory Tests 06/17/24 04:44 Test 06/17/24 04:44 Range/Units Serum Glucose 121 H 74-106 mg/dL Problem List SS COMPLEX INCRESEING SOB HARVEY LE EDEMA HFrEF CHRONIC AND ACUTE EF < 20% NOW WITH HEMOPTYSIS TACHYCARDIA CTA LUNG C/W PE 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 Large filling defect right pulmonary artery consistent with pulmonary embolus. No film findings of pulmonary artery hypertension. No pulmonary emboli noted on the left. 2. Findings are also suggestive of right heart strain. 3. Large right pleural effusion. HEPARIN DRIP\ LASIX DRIP WILL START ORAL ANTICOAGULATION IN 48 HOURS ABX LE ARTERIAL DOPPLER NO SIGNIFICANT DISEASE FOR LIMB RISK DC HEPARIN START ELIQUIS S/P CT HEAD CURRENTLY ON BiPAP IMPROVING RESP STATUS 7. TITRATE BIPAP THORACENTESIS ULTRASOUND GUIDED MRI OF ABD S/P THORACENTESIS 2200 CC DRAINED CXR BILATERAL INFILTRATE PROMINENT MEDIASTINUM CARDIOMEGALY HYPOKALEMIA BEING CORRECTED A FLUTTER S/P CARDIOVERSION SINUS RHYTHM TITRATE OFF LEVOPHED USE ALBUMIN FOR PRESSURE SUPORT DC LASIX DRIP START D5 1/4 NS AT 125 CC/HR BMP/ BNP DAILY cont volume replacement contraction alkalosis leukocytosis improved monitor h/h HYPERNATREMIA IMPROVING DIAMOX X 1 DOSE HYPERNATREMIA CORRECTED DC IV FLUID CONT TPN INCREASE VENT SETTING TO AC 22 EPISODE OF VT CORRECT ACIDOSIS MAG SO4 2 G TITRATE OFF LEVOPHED DIAMOX TREAT METABOLIC ALKALOSIS RESP ACIDOSIS START TITRATING OFF SEDATION IMPROVED RESP PARAMETERS LIVER ENZYMES STILL ELEVATED wean off sedation CORRECT HYPERNATREMIA CHECK BNP AICD IMPLANTATION PT DEVELOPED PNEUMOTHORAX DELAYING EXTUBATION PNEUMOTHORAX IMPROVED LEUKOCYTOSIS AGAIN ELECTTOLYTES BETTER NOW CXR CONSISTENT WITH CHF CORRECT K AND Mg CHANGE ABX VANCO AND AZTREONAM EPOGEN IRON DC ELIQUIS START LOVENOX WBC CONTINUES TO INCREASE NEEDS SURGICAL DEBRIDEMENT OF DECUB CXR WORSENING EFFUSION AND FLUID OVERLOAD START LASIX DRIP CXR CONSISTENT WITH MULTIFOCAL CONSOLIDATION EXCELLENT DIRESIS WITH LASIX DRIP MONITOR FLUID STATUS NEEDS DEBRIDEMENT OF DECUB WITH PERSISTENT LEUKOCYTOSIS CONSIDER BRONCHOSCOPY TO CLEAR CONSOLIDATION/ MUCUS Dietary Evaluation Review Comments: 1. consider Renal Specific 70g protein restriction witn 2GNa, 3K, low Phos, if no diaylsis needed. 2. consider Renal Standard 2gn, 3K, low phosphate diet if Pt is on dialysis. 3. encourage and monitor po intake to meet 75% of his needs. Expected Outcomes/Goals: avoid uremic symptoms, gradual healed wounds. Plan discussed with: Other Critical Care Time(min): 35 ISSAC SHAH MD Jun 17, 2024 13:02
[2024-06-17] MEDS: LIDOCAINE 1% (LOCAL ANESTH.) PF 5ml SDV ID ONE (17:42)
--- NOTE | 2024-06-17 19:15 | DVH ---
EXAM: XR Chest, 1 View CLINICAL INDICATION: PICC LINE PLACEMENT TECHNIQUE: Frontal view of the chest. COMPARISON: XY CHEST PORTABLE on DOS: 06/17/24, XY CHEST PORTABLE on DOS: 06/16/24, XY CHEST PORTABLE on DOS: 06/15/24, XY CHEST PORTABLE on DOS: 06/14/24, XY CHEST XRAY 1 VIEW on DOS: 06/13/24 FINDINGS: LUNGS AND PLEURAL SPACES: Pleural effusions, bilaterally. HEART: Cardiomegaly with pulmonary congestion and edema. Superimposed pneumonia cannot be excluded. MEDIASTINUM: Unremarkable. Normal mediastinal contour. BONES/JOINTS: Unremarkable. No acute fracture. TUBES, LINES AND DEVICES: Left peripherally inserted central catheter (PICC) tip in the superior dana a cava. Remainder of the tubes and lines are stable. OTHER FINDINGS: . IMPRESSION: 1. Cardiomegaly with pulmonary congestion and edema. Superimposed pneumonia cannot be excluded. 2. Pleural effusions, bilaterally.
[2024-06-17] MEDS: SODIUM CHLOR 0.9% PF (SALINE LOCK) 10ML VIAL/SYR IV SCH (21:29)
[2024-06-17] MEDS: TPN PER PHARMACY IV NR (21:30)
--- NOTE | 2024-06-17 22:30 | DVHPN2 ---
Progress Note - Dictate Date Seen: Jun 17, 2024 Medical Necessity Reason Pt with a Central, PICC or Fol: Yes The following are medically ne: Olsen Catheter Reason for olsen catheter: Strict I&O Subjective Patient seen and examined at bedside. Sedated, intubated on mechanical ventilator. Overnight events reviewed. vital signs Vital Sign Date Time Temp Pulse Resp B/P (MAP) Pulse Ox O2 Delivery O2 Flow Rate FiO2 06/17/24 22:11 77 16 108/39 (62) 99 40 06/17/24 18:00 Mechanical Ventilator+ 06/17/24 16:00 97.3 97.3 Total Intake and Output 06/16/24 06/16/24 06/17/24 14:59 22:59 06:59 Intake Total 1050.046 ml 1235.233 ml 1004.730 ml Output Total 1920 ml 1030 ml Balance 1050.046 ml -684.767 ml -25.270 ml medications Current Medications Medications Dose Ordered Sig/Amy Route Start Time Stop Time Status Last Admin Dose Admin Digoxin 0.125 mg DAILY PO 05/19/24 10:00 06/17/24 10:15 0.125 MG Potassium Chloride 100 ml @ 50 mls/hr Q2H IV 05/27/24 17:15 05/28/24 01:14 UNV Amino Acids 0 ml @ 0 mls/hr PER PHARMACY IV 05/30/24 12:00 Diagnostic Test (Pha) 1 strip Q6HR 05/30/24 18:00 06/17/24 18:58 1 STRIP Insulin Human Regular FOLLOW SLIDING SCALE Q6HR SC 05/30/24 18:00 06/11/24 18:33 2 UNITS Dextrose 50 ml UD IV 05/30/24 12:15 Acetaminophen 650 mg Q6HP PRN PO 05/31/24 19:30 06/10/24 14:37 650 MG Midazolam HCl 50 ml @ 1 mls/hr Q24H IV 06/08/24 20:15 06/17/24 05:30 3 MLS/HR Norepinephrine Bitartrate 32 mg/ Sodium Chloride 250 ml @ 0.938 mls/ hr Q24H IV 06/11/24 15:30 06/17/24 06:47 7.5 MLS/HR Vancomycin HCl 0 ml @ 0 mls/hr UD IV 06/11/24 18:45 Spironolactone 25 mg DAILY GT 06/13/24 10:00 06/17/24 10:15 25 MG Potassium Chloride 100 ml @ 50 mls/hr Q2H IV 06/13/24 12:45 06/13/24 16:44 UNV Magnesium Sulfate/ Dextrose 100 ml @ 100 mls/hr Q1HR IV 06/13/24 13:00 06/13/24 14:59 UNV Iron Sucrose 110 ml @ 110 mls/hr DAILY@1200 IV 06/14/24 12:00 06/18/24 12:59 06/17/24 12:28 110 MLS/HR Cefepime HCl 50 ml @ 12.5 mls/hr Q8HR IV 06/13/24 14:00 UNV Enoxaparin Sodium 30 mg BID SC 06/14/24 22:00 06/17/24 21:29 30 MG Furosemide 100 mg/ Sodium Chloride 110 ml @ 4.4 mls/hr Q24H IV 06/14/24 14:15 06/17/24 15:21 4.4 MLS/HR Aztreonam 2 gm/ Dextrose 100 ml @ 100 mls/hr Q8HR IV 06/15/24 22:00 06/17/24 21:29 100 MLS/HR Fentanyl Citrate 250 ml @ 2.5 mls/hr Q24H IV 06/15/24 16:00 06/17/24 18:52 20 MLS/HR Vancomycin HCl 250 ml @ 250 mls/hr Q12H IV 06/16/24 18:00 06/17/24 17:21 250 MLS/HR Fat Emulsion Intravenous 150 ml/Sodium Chloride 40 meq/ Potassium Chloride 60 meq/ Magnesium Sulfate 20 meq/ Multivitamins 10 ml/Amino Acids/ Dextrose 1,605 ml @ 67 mls/hr [id number] IV 06/17/24 22:00 06/18/24 21:59 06/17/24 21:30 67 MLS/HR Sodium Chloride 10 ml QSHIFT@10,22 IV 06/17/24 22:00 06/17/24 21:29 10 ML objective Gen.: Patient lying in bed in medical ICU. Sedated, intubated on mechanical ventilator. Head: Normocephalic, atraumatic. Eyes: PERRLA. Ears: Normal external anatomy. Throat: Endotracheal tube and orogastric tube in place. Neck: Supple, trachea midline. Chest: Transmitted breath sounds bilaterally. Decreased air entry bilaterally. No wheezing. Bibasilar crackles. Cardio vascular: Positive S1, positive S2. Regular rate and rhythm. Abdomen: Positive bowel sounds in all 4 quadrants. Soft, nontender, nondistended. : Olsen in place. Normal external genitalia. Rectal: Deferred Skin: Warm, dry. Intact. Extremities: 2+ radial pulses bilaterally. No lower extremity edema. Neuro: Sedated laboratory and microbiology Laboratory Tests 06/17/24 04:44 Test 06/17/24 04:44 Range/Units Serum Glucose 121 H 74-106 mg/dL Assessment/Plan Impression: Acute hypoxic respiratory failure Mechanical ventilator Pleural effusion, right Atelectasis CHF exacerbation Pulmonary embolism Obesity with a BMI of 30.1 Pneumonia, likely gram negative Sacral wound Events: Remains on vent support On assist control with respiratory rate of 16, tidal volume 500, PEEP of 5 --> 3, FiO2 at 40%. CXR reviewed, demonstrates cardiomegaly with pulmonary congestion and edema. Superimposed pneumonia cannot be excluded. Pleural effusions bilaterally. Chest tubes to -30 cmH2O Monitor output Large bore output 30 mL Sedated on Versed On Fentanyl for analgesia On Levophed for hemodynamic support. Titrate to keep MAP above 65 mmHg/SBP above 90 mmHg Amiodarone drip Continue antibiotics TPN for nutritional support Diurese as tolerated w/ Lasix 4 mg/hr Monitor renal function Monitor electrolytes. Supplement as necessary. Supplement potassium On IV fluids at 100 mL/hr. Monitor hemoglobin Iron supplementation S/p PICC line placement. Remove SCV central line Surgery recs appreciated. Debridement of sacral wound by Surgery Wound care SBT/BAM Poor prognosis Recommend Trach/PEG for liberation from vent. 06/09/24 - S/p bronchoscopy - removed copious secretions from L1-L10 06/09/24 - S/p right thoracentesis - 550 ml joycelyn fluid removed from right pleural space. 06/05/24 - S/p left thoracentesis on 950 mL's of joycelyn colored fluid removed from left pleural space. 06/03/24 - S/p bronchoscopy - cleared mucous plugging from L6-L10, L1-L5 and R1- R3 06/03/24 - S/p right thoracentesis - 1700 mL of serosanguineous fluid removed from R pleural space. S/p bronchoscopy w/ RML BAL on 05/28/24 - Cleared bloody secretions from L1-L10 and R1-R10 S/p cardioversion on 05/27/24 Labs and imaging reviewed. Rest of plan as noted below. Plan: s/p intubation on mechanical ventilator Status post right thoracentesis with removal of 2200 mL ABG reviewed. Alkalemia due to contraction alkalosis. Hypoxemia with a PO2 of 42 mmHg. Patient was emergently intubated and placed on mechanical ventilation. Currently on assist control with respiratory rate of 16, tidal volume 500, PEEP of 5, FiO2 at 40%. Titrate FIO2 to keep O2 saturation above 92%. VAP bundle Daily ABG and CXR while intubated. Sedated On pressors for hemodynamic support. Titrate to keep MAP above 65 mmHg/SBP above 90 mmHg. Continue antibiotics F/u cultures. Sputum cultures grew Staph aureus and Pseudomonas aeruginosa. Monitor renal function due to Acute kidney injury. Monitor electrolytes. Supplement as necessary. Monitor ins and outs Maintain euvolemia Cardiology recommendations appreciated. Nutritional support. Accu-Cheks, ISS. GI/DVT prophylaxis. Condition: Critical Prognosis: Poor given multiple comorbidities. Rest of plan per hospitalist and other consultants. A total of 35 minutes of critical care time was spent reviewing the patient record, examining the patient, making a diagnostic and therapeutic plan, discussing this plan with the medical personnel, following up on diagnostic studies and following the patient for clinical stability excluding any and all procedures. At least 50% of this time was spent in direct, [id number] contact. Thank you Dr. Conn for allowing me to participate in this patient's care. Further recommendations will depend on patient's clinical course. Please do not hesitate to contact me if you have any questions or concerns. This medical document was created using an electronic medical record system with [employer] dictation system. Although this document has been carefully reviewed, there may still be some phonetic and typographical errors. These areas are purely typographical due to imperfections of the software programs, and do not reflect any compromise in the patient's medical care. Dietary Evaluation Review Comments: 1. consider Renal Specific 70g protein restriction witn 2GNa, 3K, low Phos, if no diaylsis needed. 2. consider Renal Standard 2gn, 3K, low phosphate diet if Pt is on dialysis. 3. encourage and monitor po intake to meet 75% of his needs. Expected Outcomes/Goals: avoid uremic symptoms, gradual healed wounds. Plan discussed with: Other (CALEB Arroyo) Critical Care Time(min): 35 BOGDAN MANN MD Jun 17, 2024 22:30
[2024-06-18] VITALS (100 sets, daily range): BP systolic 93–158; BP diastolic 25–85; PULSE 69–86; RESP 10–24; TEMP 98–98.6; O2SAT 90–100
[2024-06-18 05:43] LABS: Hemoglobin 8.3 g/dL (13.5-17.5)
[2024-06-18 05:45] LABS: Hematocrit 25.8 % (41.0-53.0); Mean Corpuscular Hemoglobin 26.5 pg (28.0-32.0); Mean Corpuscular Hgb Conc. 32.2 g/dL (32.0-36.0); Mean Corpuscular Volume 82.2 fL (80.0-100.0); Platelet Count (auto) 386 10^3/uL (140-450); Red Blood Cells 3.13 10^6/uL (4.5-5.90); Red Cell Distribution Width 17.4 % (11.8-14.3); White Blood Cell 21.7 10^3/uL (4.4-10.8)
[2024-06-18 05:48] LABS: Basophils % (manual) 0 (0.0-2.0); Blast Cells 0; Promyelocytes % 0; Reactive Lymphocytes 0
--- NOTE | 2024-06-18 06:04 | DVH ---
EXAM: XR Chest, 1 View CLINICAL INDICATION: PNEUMOTHORAX/INTUBATED TECHNIQUE: Frontal view of the chest. COMPARISON: XY CHEST PORTABLE on DOS: 06/17/24, XY CHEST PORTABLE on DOS: 06/17/24, XY CHEST PORTABLE on DOS: 06/16/24, XY CHEST PORTABLE on DOS: 06/15/24, XY CHEST PORTABLE on DOS: 06/14/24 FINDINGS: LUNGS AND PLEURAL SPACES: Bilateral pleural effusions. HEART: Cardiomegaly with pulmonary congestion and edema. Superimposed pneumonia cannot be excluded. MEDIASTINUM: Unremarkable. Normal mediastinal contour. BONES/JOINTS: Unremarkable. No acute fracture. TUBES, LINES AND DEVICES: The endotracheal tube (ETT) is in satisfactory position. Enteric tube tip in the stomach. Right-sided chest tube. Small right apical pneumothorax. OTHER FINDINGS: . IMPRESSION: 1. Cardiomegaly with pulmonary congestion and edema. Superimposed pneumonia cannot be excluded. 2. Right-sided chest tube. Small right apical pneumothorax.
[2024-06-18 06:09] LABS: Anion Gap 2 (5-15); BUN/Creatinine Ratio 77.3 (10.0-20.0); Chloride 101 mmol/L (98-107); Magnesium 2.2 mg/dL (1.6-2.6); Sodium 138 mmol/L (136-145); Triglycerides 120 mg/dL (< 150)
[2024-06-18 06:10] LABS: Phosphorus 3.3 mg/dL (2.4-5.1)
[2024-06-18 06:12] LABS: Alanine Aminotransferase 164 U/L (7-40); Albumin 2.1 g/dL (3.2-4.8); Alkaline Phosphatase 319 U/L (46-116); Aspartate Aminotransferase 137 U/L (13-40); Bilirubin, Total 3.5 mg/dL (0.2-1.0); Blood Urea Nitrogen 34 mg/dL (9-23); Calcium 7.9 mg/dL (8.7-10.4); Carbon Dioxide 35 mmol/L (20-31); Glucose 124 mg/dL (74-106); Potassium 3.5 mmol/L (3.5-5.1); Total Protein 5.2 g/dL (5.7-8.2)
[2024-06-18 06:24] LABS: Band Neutrophils % (manual) 2; Eosinophils % (manual) 3 (0-7); Lymphocytes % (manual) 6 (10.0-50.0); Metamyelocytes % 2; Monocytes % (manual) 3 (0-12); Myelocytes % 1; Platelet Estimate Adequate
[2024-06-18 07:03] LABS: Base Excess 1.6 mmol/L (-2.0-3.0)
--- NOTE | 2024-06-18 08:40 | DVHPNRES ---
Progress Note Date Seen: Jun 18, 2024 Resident Creating Document: FARIDA HOLT RESIDENT Medical Necessity Reason Pt with a Central, PICC or Fol: Yes The following are medically ne: Olsen Catheter Reason for olsen catheter: Strict I&O Subjective Review of Systems Patient was seen and examined at bedside he is currently sedated and intubated. ROS Could not be done. Objective vital signs Vital Sign Date Time Temp Pulse Resp B/P (MAP) Pulse Ox O2 Delivery O2 Flow Rate FiO2 06/18/24 08:32 123/44 06/18/24 08:00 98.1 75 16 98 98.1 06/18/24 06:10 40 06/18/24 06:00 Mechanical Ventilator+ Total Intake and Output 06/17/24 06/17/24 06/18/24 15:00 23:00 07:00 Intake Total 1368.48 ml 901.856 ml 836.486 ml Output Total 2230 ml 2440 ml Balance 1368.48 ml -1328.144 ml -1603.514 ml medications Current Medications Medications Dose Ordered Sig/Amy Route Start Time Stop Time Status Last Admin Dose Admin Digoxin 0.125 mg DAILY PO 05/19/24 10:00 06/17/24 10:15 0.125 MG Potassium Chloride 100 ml @ 50 mls/hr Q2H IV 05/27/24 17:15 05/28/24 01:14 UNV Amino Acids 0 ml @ 0 mls/hr PER PHARMACY IV 05/30/24 12:00 Diagnostic Test (Pha) 1 strip Q6HR 05/30/24 18:00 06/18/24 05:34 1 STRIP Insulin Human Regular FOLLOW SLIDING SCALE Q6HR SC 05/30/24 18:00 06/11/24 18:33 2 UNITS Dextrose 50 ml UD IV 05/30/24 12:15 Acetaminophen 650 mg Q6HP PRN PO 05/31/24 19:30 06/10/24 14:37 650 MG Midazolam HCl 50 ml @ 1 mls/hr Q24H IV 06/08/24 20:15 06/17/24 23:09 3 MLS/HR Norepinephrine Bitartrate 32 mg/ Sodium Chloride 250 ml @ 0.938 mls/ hr Q24H IV 06/11/24 15:30 06/18/24 08:33 8.438 MLS/HR Vancomycin HCl 0 ml @ 0 mls/hr UD IV 06/11/24 18:45 Spironolactone 25 mg DAILY GT 06/13/24 10:00 06/17/24 10:15 25 MG Potassium Chloride 100 ml @ 50 mls/hr Q2H IV 06/13/24 12:45 06/13/24 16:44 UNV Magnesium Sulfate/ Dextrose 100 ml @ 100 mls/hr Q1HR IV 06/13/24 13:00 06/13/24 14:59 UNV Iron Sucrose 110 ml @ 110 mls/hr DAILY@1200 IV 06/14/24 12:00 06/18/24 12:59 06/17/24 12:28 110 MLS/HR Cefepime HCl 50 ml @ 12.5 mls/hr Q8HR IV 06/13/24 14:00 UNV Enoxaparin Sodium 30 mg BID SC 06/14/24 22:00 06/17/24 21:29 30 MG Furosemide 100 mg/ Sodium Chloride 110 ml @ 4.4 mls/hr Q24H IV 06/14/24 14:15 06/18/24 08:32 4.4 MLS/HR Aztreonam 2 gm/ Dextrose 100 ml @ 100 mls/hr Q8HR IV 06/15/24 22:00 06/18/24 05:34 100 MLS/HR Fentanyl Citrate 250 ml @ 2.5 mls/hr Q24H IV 06/15/24 16:00 06/18/24 06:09 20 MLS/HR Vancomycin HCl 250 ml @ 250 mls/hr Q12H IV 06/16/24 18:00 06/17/24 17:21 250 MLS/HR Fat Emulsion Intravenous 150 ml/Sodium Chloride 40 meq/ Potassium Chloride 60 meq/ Magnesium Sulfate 20 meq/ Multivitamins 10 ml/Amino Acids/ Dextrose 1,605 ml @ 67 mls/hr [id number] IV 06/17/24 22:00 06/18/24 21:59 06/17/24 21:30 67 MLS/HR Sodium Chloride 10 ml QSHIFT@10,22 IV 06/17/24 22:00 06/17/24 21:29 10 ML laboratory and microbiology Laboratory Tests 06/18/24 05:01 Test 06/18/24 05:01 Range/Units Serum Glucose 124 H 74-106 mg/dL Microbiology Date/Time Source Procedure Growth Status 06/10/24 17:12 Blood Blood Culture - Final NO GROWTH AFTER 5 DAYS OF INCUBATION. Complete 06/10/24 16:00 Urine - Olsen Port Urine Culture - Final Pseudomonas aeruginosa Enterococcus casseliflavus Complete 06/09/24 14:37 Bronchial Washings Gram Stain - Final Complete 06/09/24 14:37 Respiratory Culture - Final Staphylococcus aureus Pseudomonas aeruginosa Complete 06/09/24 14:30 Pleural Fluid Gram Stain - Final Complete 06/09/24 14:30 Pleural Fluid Body Fluid Culture - Final Complete 05/28/24 15:51 Nose MRSA Screen - Final Complete Problem List/Assessment/Plan Problem List/Assessment/Plan Assessment/Plan 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, likely chronic -seen on head CT Cardiology # shock, likely cardiogenic/septic -currently on IV norepinephrine # Acute exacerbation of HFrEF -EF <20%, last echo 03/12/24 Currently on Lasix drip #moderate TR -seen on echo 03/12/24 #Severe MR -seen on echo 03/12/24 #Mild aortic insufficiency with Dilated aortic root and mild av calcification -seen on echo 03/12/24 #Mod Pulmonary hypertension -seen on echo 03/12/24 #Atrial flutter, currently sinus rhythm -had sync cardioversion on 05/27/24 -currently on amiodarone drip, will switch to oral amiodarone #Non-sustained Vtach -currently on amiodarone drip, will switch to oral amiodarone #Ectatic ascending aorta. -seen on imaging Respiratory #Acute hypoxic resp failure due to CHF exacerbation/pneumonia/pulmonary embolism -on [facility] vent, intubated on 05/26/24 -reintubation on 06/12/24 due to ETT leak # Acute pulmonary embolism with Right heart strain -seen on CT angio -pt was started on heparin drip, later was switched to eliquis -currently on prophylactic lovenox, will switch to therapeutic dose after surgery, based on risk/benefit # Large right pleural effusion -s/p multiple thoracentesis -pt has currently [address] 06/16/24 shows Moderate right pleural fluid collection with near complete collapse of the right lower lobe chest tube in place within the collection. #Right lower lobe atelectasis -seen on CT #Moderate right anterior pneumothorax --pt has currently 2 chest tubes #Multiple mucus plugs -pt had multiple bronchoscopies #Pneumonia, community acquired, gram +/- -sputum culture reveals Staph aureus and Pseudomonas -IV antibiotics based on culture sensitivity # Small left anterior pneumothorax -seen on CT Monitor # Moderate left pleural fluid collection with complete collapse of the left lower lobe -seen on CT -IV Lasix # left lower lobe atelectasis Seen on CT # pneumomediastinum -Small amount of pneumomediastinum, may be tracking from the bilateral pneumothoraces Nephrology # Hypernatremia -corrected # Hyperkalemia -corrected # hypokalemia Corrected # RADHA likely due to vasomotor nephropathy Monitor BMP # respiratory acidosis with metabolic alkalosis, resolved Monitor ABG # hypophosphatemia Corrected Hematology/oncology # anemia, normocytic Monitor # coagulopathy likely due to sepsis Monitor GI # Transaminitis likely due to sepsis -monitor # Moderate colonic diverticulosis -seen on imaging # Cholelithiasis -seen on imaging # complicated UTI -IV antibiotics based on culture -urine culture reveals Pseudomonas and Enterococcus Infectious disease #Sepsis with septic shock -IV antibiotics -currently on norepi drio #Sacral Wound, Unstageable -likely infected -IV antibiotics -surgery consulted for Wound debridement -planned for AM Lines PICC line 06/17/24 Left subclavian CVC line 06/05/24, removed 06/17/24 Right femoral A-line 06/03/24 Olsen catheter 05/21/24 Drips Norepi fentanyl Versed Lasix drip TPN, discontinued Amiodarone DVT prophylaxis Lovenox PPD prophylaxis IV Protonix Nutrition Jevity Bowel regimen Colace Code status discussed with the fiance, for >21 min : FULL CODE Fiance was updated about the condition of the patient and will have a meeting tomorrow for discussion about Tracheostomy Critical care time excluding procedures : 89 minutes Case discussion with Dr Cintia Wray discussed with: Other Dietary Evaluation Review Comments: 1. consider Renal Specific 70g protein restriction witn 2GNa, 3K, low Phos, if no diaylsis needed. 2. consider Renal Standard 2gn, 3K, low phosphate diet if Pt is on dialysis. 3. encourage and monitor po intake to meet 75% of his needs. Expected Outcomes/Goals: avoid uremic symptoms, gradual healed wounds. Date of Service: Jun 18, 2024 Billing Provider: TIFFANY CLAYTON MD Common Visit Codes: 93239-[id number] CARE 30-74 MIN, [id number] CARE-EACH +30MIN FARIDA HOLT RESIDENT Jun 18, 2024 08:40 TIFFANY CLAYTON MD Jun 19, 2024 16:58
[2024-06-18] MEDS: PANTOPRAZOLE 40 MG/10 ML VIAL INJ IV SCH (10:18)
[2024-06-18] MEDS: PIPERACILLIN-TAZO 4.5GM 100 ML IV ONE (10:19)
--- NOTE | 2024-06-18 11:03 | DVH ---
Date: 06/18/2024 10:36 AM Examination: XY KUB ABDOMEN SINGLE VIEW History: abd distension Comparison: None TECHNIQUE: Frontal views of the abdomen was obtained. FINDINGS: Bowel gas pattern is unremarkable. NG tube in stomach. The lung bases are unremarkable. No acute osseous abnormality identified. IMPRESSION: Nonobstructive bowel gas pattern. large stool burden
[2024-06-18] MEDS: POTASSIUM CHL 20MEQ/100ML 100 ML IV ONE (12:17)
--- NOTE | 2024-06-18 12:45 | DVHPN2 ---
Progress Note - Dictate Date Seen: Jun 18, 2024 Medical Necessity Reason Pt with a Central, PICC or Fol: Yes The following are medically ne: Olsen Catheter Reason for olsen catheter: Strict I&O Subjective PT WITH SS COMPLEX INCRESEING SOB HARVEY LE EDEMA HFrEF CHRONIC AND ACUTE NOW WITH HEMOPTYSIS TACHYCARDIA CTA LUNG C/W PE ACUTE vital signs Vital Sign Date Time Temp Pulse Resp B/P (MAP) Pulse Ox O2 Delivery O2 Flow Rate FiO2 06/18/24 12:30 76 17 135/50 (78) 96 109/43 (65) 06/18/24 12:00 Mechanical Ventilator+ 40 40 06/18/24 12:00 98.6 98.6 Total Intake and Output 06/17/24 06/17/24 06/18/24 15:00 23:00 07:00 Intake Total 1368.48 ml 901.856 ml 888.984 ml Output Total 2230 ml 2440 ml Balance 1368.48 ml -1328.144 ml -1551.016 ml medications Current Medications Medications Dose Ordered Sig/Amy Route Start Time Stop Time Status Last Admin Dose Admin Potassium Chloride 100 ml @ 50 mls/hr Q2H IV 05/27/24 17:15 05/28/24 01:14 UNV Diagnostic Test (Pha) 1 strip Q6HR 05/30/24 18:00 06/18/24 12:21 1 STRIP Insulin Human Regular FOLLOW SLIDING SCALE Q6HR SC 05/30/24 18:00 06/11/24 18:33 2 UNITS Dextrose 50 ml UD IV 05/30/24 12:15 Acetaminophen 650 mg Q6HP PRN PO 05/31/24 19:30 06/10/24 14:37 650 MG Midazolam HCl 50 ml @ 1 mls/hr Q24H IV 06/08/24 20:15 06/17/24 23:09 3 MLS/HR Norepinephrine Bitartrate 32 mg/ Sodium Chloride 250 ml @ 0.938 mls/ hr Q24H IV 06/11/24 15:30 06/18/24 08:33 8.438 MLS/HR Potassium Chloride 100 ml @ 50 mls/hr Q2H IV 06/13/24 12:45 06/13/24 16:44 UNV Magnesium Sulfate/ Dextrose 100 ml @ 100 mls/hr Q1HR IV 06/13/24 13:00 06/13/24 14:59 UNV Iron Sucrose 110 ml @ 110 mls/hr DAILY@1200 IV 06/14/24 12:00 06/18/24 12:59 06/17/24 12:28 110 MLS/HR Cefepime HCl 50 ml @ 12.5 mls/hr Q8HR IV 06/13/24 14:00 UNV Enoxaparin Sodium 30 mg BID SC 06/14/24 22:00 06/17/24 21:29 30 MG Furosemide 100 mg/ Sodium Chloride 110 ml @ 4.4 mls/hr Q24H IV 06/14/24 14:15 06/18/24 08:32 4.4 MLS/HR Fentanyl Citrate 250 ml @ 2.5 mls/hr Q24H IV 06/15/24 16:00 06/18/24 06:09 20 MLS/HR Sodium Chloride 10 ml QSHIFT@10,22 IV 06/17/24 22:00 06/18/24 10:18 10 ML Pantoprazole Sodium 40 mg DAILY IV 06/18/24 10:00 06/18/24 10:18 40 MG Piperacillin Sod/ Tazobactam Sod 100 ml @ 25 mls/hr Q6H IV 06/18/24 18:00 Linezolid 300 ml @ 150 mls/hr Q12HR IV 06/18/24 11:00 objective PUL DIFF RHONCHI JVD ANGLE OF THE JAW CV RR PMI DIFFUSE EXT 3+ EDEMA laboratory and microbiology Laboratory Tests 06/18/24 10:00 06/18/24 05:01 Test 06/18/24 10:00 Range/Units Serum Glucose 303 #H 74-106 mg/dL Problem List SS COMPLEX INCRESEING SOB HARVEY LE EDEMA HFrEF CHRONIC AND ACUTE EF < 20% NOW WITH HEMOPTYSIS TACHYCARDIA CTA LUNG C/W PE 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 Large filling defect right pulmonary artery consistent with pulmonary embolus. No film findings of pulmonary artery hypertension. No pulmonary emboli noted on the left. 2. Findings are also suggestive of right heart strain. 3. Large right pleural effusion. HEPARIN DRIP\ LASIX DRIP WILL START ORAL ANTICOAGULATION IN 48 HOURS ABX LE ARTERIAL DOPPLER NO SIGNIFICANT DISEASE FOR LIMB RISK DC HEPARIN START ELIQUIS S/P CT HEAD CURRENTLY ON BiPAP IMPROVING RESP STATUS 7.32/59/69 TITRATE BIPAP THORACENTESIS ULTRASOUND GUIDED MRI OF ABD S/P THORACENTESIS 2200 CC DRAINED CXR BILATERAL INFILTRATE PROMINENT MEDIASTINUM CARDIOMEGALY HYPOKALEMIA BEING CORRECTED A FLUTTER S/P CARDIOVERSION SINUS RHYTHM TITRATE OFF LEVOPHED USE ALBUMIN FOR PRESSURE SUPORT DC LASIX DRIP START D5 1/4 NS AT 125 CC/HR BMP/ BNP DAILY cont volume replacement contraction alkalosis leukocytosis improved monitor h/h HYPERNATREMIA IMPROVING DIAMOX X 1 DOSE HYPERNATREMIA CORRECTED DC IV FLUID CONT TPN INCREASE VENT SETTING TO AC 22 EPISODE OF VT CORRECT ACIDOSIS MAG SO4 2 G TITRATE OFF LEVOPHED DIAMOX TREAT METABOLIC ALKALOSIS RESP ACIDOSIS START TITRATING OFF SEDATION IMPROVED RESP PARAMETERS LIVER ENZYMES STILL ELEVATED wean off sedation CORRECT HYPERNATREMIA CHECK BNP AICD IMPLANTATION PT DEVELOPED PNEUMOTHORAX DELAYING EXTUBATION PNEUMOTHORAX IMPROVED LEUKOCYTOSIS AGAIN ELECTTOLYTES BETTER NOW CXR CONSISTENT WITH CHF CORRECT K AND Mg CHANGE ABX VANCO AND AZTREONAM EPOGEN IRON DC ELIQUIS START LOVENOX WBC CONTINUES TO INCREASE NEEDS SURGICAL DEBRIDEMENT OF DECUB CXR WORSENING EFFUSION AND FLUID OVERLOAD START LASIX DRIP CXR CONSISTENT WITH MULTIFOCAL CONSOLIDATION EXCELLENT DIURESIS WITH LASIX DRIP MONITOR FLUID STATUS NEEDS DEBRIDEMENT OF DECUB WITH PERSISTENT LEUKOCYTOSIS CONSIDER BRONCHOSCOPY TO CLEAR CONSOLIDATION/ MUCUS Dietary Evaluation Review Comments: 1. consider Renal Specific 70g protein restriction witn 2GNa, 3K, low Phos, if no diaylsis needed. 2. consider Renal Standard 2gn, 3K, low phosphate diet if Pt is on dialysis. 3. encourage and monitor po intake to meet 75% of his needs. Expected Outcomes/Goals: avoid uremic symptoms, gradual healed wounds. Plan discussed with: Patient, Spouse, Other Critical Care Time(min): 35 ISSAC SHAH MD Jun 18, 2024 12:45
[2024-06-18 13:53] LABS: INR 1.16 (0.9-1.15); Partial Thromboplastin Time 33.8 SEC (24.5-34.5); Prothrombin Time 12.1 sec (9.3-11.8)
[2024-06-18] MEDS ORDERED: Jevity 1.2 Cal/Fiber 1 Liter GT SCH (16:15)
[2024-06-18] MEDS: LINEZOLID 600MG/300ML 300 ML IV SCH (16:17)
[2024-06-18 17:51] LABS: Anion Gap 2 (5-15); Chloride 102 mmol/L (98-107); Potassium 3.7 mmol/L (3.5-5.1); Sodium 139 mmol/L (136-145)
[2024-06-18 18:23] LABS: Alanine Aminotransferase 141 U/L (7-40); Albumin 2.1 g/dL (3.2-4.8); Alkaline Phosphatase 326 U/L (46-116); Aspartate Aminotransferase 111 U/L (13-40); Bilirubin, Total 3.1 mg/dL (0.2-1.0); Blood Urea Nitrogen 34 mg/dL (9-23); Calcium 7.9 mg/dL (8.7-10.4); Carbon Dioxide 35 mmol/L (20-31); Glucose 127 mg/dL (74-106); Total Protein 5.2 g/dL (5.7-8.2)
[2024-06-18] MEDS: PIPERACILLIN-TAZO 4.5GM 100 ML IV SCH (18:38)
--- NOTE | 2024-06-18 21:16 | DVHPN2 ---
Progress Note - Dictate Date Seen: Jun 18, 2024 Medical Necessity Reason Pt with a Central, PICC or Fol: Yes The following are medically ne: Olsen Catheter Reason for olsen catheter: Strict I&O Subjective Patient seen and examined at bedside. Sedated, intubated on mechanical ventilator. Overnight events reviewed. vital signs Vital Sign Date Time Temp Pulse Resp B/P (MAP) Pulse Ox O2 Delivery O2 Flow Rate FiO2 06/18/24 20:00 98.0 78 16 128/47 (74) 93 98.0 104/43 (63) 06/18/24 20:00 Mechanical Ventilator+ 40 40 Total Intake and Output 06/17/24 06/17/24 06/18/24 15:00 23:00 07:00 Intake Total 1368.48 ml 901.856 ml 888.984 ml Output Total 2230 ml 2440 ml Balance 1368.48 ml -1328.144 ml -1551.016 ml medications Current Medications Medications Dose Ordered Sig/Amy Route Start Time Stop Time Status Last Admin Dose Admin Potassium Chloride 100 ml @ 50 mls/hr Q2H IV 05/27/24 17:15 05/28/24 01:14 UNV Diagnostic Test (Pha) 1 strip Q6HR 05/30/24 18:00 06/18/24 18:00 1 STRIP Insulin Human Regular FOLLOW SLIDING SCALE Q6HR SC 05/30/24 18:00 06/11/24 18:33 2 UNITS Dextrose 50 ml UD IV 05/30/24 12:15 Acetaminophen 650 mg Q6HP PRN PO 05/31/24 19:30 06/10/24 14:37 650 MG Midazolam HCl 50 ml @ 1 mls/hr Q24H IV 06/08/24 20:15 06/18/24 16:17 4 MLS/HR Norepinephrine Bitartrate 32 mg/ Sodium Chloride 250 ml @ 0.938 mls/ hr Q24H IV 06/11/24 15:30 06/18/24 08:33 8.438 MLS/HR Potassium Chloride 100 ml @ 50 mls/hr Q2H IV 06/13/24 12:45 06/13/24 16:44 UNV Magnesium Sulfate/ Dextrose 100 ml @ 100 mls/hr Q1HR IV 06/13/24 13:00 06/13/24 14:59 UNV Cefepime HCl 50 ml @ 12.5 mls/hr Q8HR IV 06/13/24 14:00 UNV Enoxaparin Sodium 30 mg BID SC 06/14/24 22:00 06/17/24 21:29 30 MG Furosemide 100 mg/ Sodium Chloride 110 ml @ 4.4 mls/hr Q24H IV 06/14/24 14:15 06/18/24 08:32 4.4 MLS/HR Fentanyl Citrate 250 ml @ 2.5 mls/hr Q24H IV 06/15/24 16:00 06/18/24 16:38 20 MLS/HR Sodium Chloride 10 ml QSHIFT@10,22 IV 06/17/24 22:00 06/18/24 10:18 10 ML Pantoprazole Sodium 40 mg DAILY IV 06/18/24 10:00 06/18/24 10:18 40 MG Piperacillin Sod/ Tazobactam Sod 100 ml @ 25 mls/hr Q6H IV 06/18/24 18:00 06/18/24 18:38 25 MLS/HR Linezolid 300 ml @ 150 mls/hr Q12HR IV 06/18/24 11:00 06/18/24 16:17 150 MLS/HR Enteral Nutritional Formula 1,000 ml 30ML/HR GT 06/18/24 16:15 objective Gen.: Patient lying in bed in medical ICU. Sedated, intubated on mechanical ventilator. Head: Normocephalic, atraumatic. Eyes: PERRLA. Ears: Normal external anatomy. Throat: Endotracheal tube and orogastric tube in place. Neck: Supple, trachea midline. Chest: Transmitted breath sounds bilaterally. Decreased air entry bilaterally. No wheezing. Bibasilar crackles. Cardio vascular: Positive S1, positive S2. Regular rate and rhythm. Abdomen: Positive bowel sounds in all 4 quadrants. Soft, nontender, nondistended. : Olsen in place. Normal external genitalia. Rectal: Deferred Skin: Warm, dry. Intact. Extremities: 2+ radial pulses bilaterally. No lower extremity edema. Neuro: Sedated laboratory and microbiology Laboratory Tests 06/18/24 16:55 06/18/24 05:01 Test 06/18/24 16:55 Range/Units Serum Glucose 127 H 74-106 mg/dL Assessment/Plan Impression: Acute hypoxic respiratory failure Mechanical ventilator Pleural effusion, right Atelectasis CHF exacerbation Pulmonary embolism Obesity with a BMI of 30.1 Pneumonia, likely gram negative Sacral wound Events: Remains on vent support On assist control with respiratory rate of 16, tidal volume 500, PEEP of 3, FiO2 at 40%. CXR reviewed, demonstrates cardiomegaly with pulmonary congestion and edema. Right chest tube in place. Small right apical pneumothorax. Monitor chest tube output Sedated on Versed On Fentanyl for analgesia On pressors for hemodynamic support. On Levophed 10 mcg/min Titrate to keep MAP above 65 mmHg/SBP above 90 mmHg Amiodarone drip Continue antibiotics TPN for nutritional support Diurese as tolerated w/ Lasix drip Monitor renal function Monitor electrolytes. Supplement as necessary. Supplement potassium On IV fluids at 100 mL/hr. Monitor hemoglobin Iron supplementation Surgery recs appreciated. Debridement of sacral wound by Surgery in AM. Wound care SBT/BAM Poor prognosis Recommend Trach/PEG for liberation from vent. 06/09/24 - S/p bronchoscopy - removed copious secretions from L1-L10 06/09/24 - S/p right thoracentesis - 550 ml joycelyn fluid removed from right pleural space. 06/05/24 - S/p left thoracentesis on 950 mL's of joycelyn colored fluid removed from left pleural space. 06/03/24 - S/p bronchoscopy - cleared mucous plugging from L6-L10, L1-L5 and R1- R3 06/03/24 - S/p right thoracentesis - 1700 mL of serosanguineous fluid removed from R pleural space. S/p bronchoscopy w/ RML BAL on 05/28/24 - Cleared bloody secretions from L1-L10 and R1-R10 S/p cardioversion on 05/27/24 Labs and imaging reviewed. Rest of plan as noted below. Plan: s/p intubation on mechanical ventilator Status post right thoracentesis with removal of 2200 mL ABG reviewed. Alkalemia due to contraction alkalosis. Hypoxemia with a PO2 of 42 mmHg. Patient was emergently intubated and placed on mechanical ventilation. Currently on assist control with respiratory rate of 16, tidal volume 500, PEEP of 5, FiO2 at 40%. Titrate FIO2 to keep O2 saturation above 92%. VAP bundle Daily ABG and CXR while intubated. Sedated On pressors for hemodynamic support. Titrate to keep MAP above 65 mmHg/SBP above 90 mmHg. Continue antibiotics F/u cultures. Sputum cultures grew Staph aureus and Pseudomonas aeruginosa. Monitor renal function due to Acute kidney injury. Monitor electrolytes. Supplement as necessary. Monitor ins and outs Maintain euvolemia Cardiology recommendations appreciated. Nutritional support. Accu-Cheks, ISS. GI/DVT prophylaxis. Condition: Critical Prognosis: Poor given multiple comorbidities. Rest of plan per hospitalist and other consultants. A total of 35 minutes of critical care time was spent reviewing the patient record, examining the patient, making a diagnostic and therapeutic plan, discussing this plan with the medical personnel, following up on diagnostic studies and following the patient for clinical stability excluding any and all procedures. At least 50% of this time was spent in direct, [id number] contact. Thank you Dr. Conn for allowing me to participate in this patient's care. Further recommendations will depend on patient's clinical course. Please do not hesitate to contact me if you have any questions or concerns. This medical document was created using an electronic medical record system with [employer] dictation system. Although this document has been carefully reviewed, there may still be some phonetic and typographical errors. These areas are purely typographical due to imperfections of the software programs, and do not reflect any compromise in the patient's medical care. Dietary Evaluation Review Comments: 1. consider Renal Specific 70g protein restriction witn 2GNa, 3K, low Phos, if no diaylsis needed. 2. consider Renal Standard 2gn, 3K, low phosphate diet if Pt is on dialysis. 3. encourage and monitor po intake to meet 75% of his needs. Expected Outcomes/Goals: avoid uremic symptoms, gradual healed wounds. Plan discussed with: Other (CALEB Fernando) Critical Care Time(min): 35 BOGDAN MANN MD Jun 18, 2024 21:16
--- NOTE | 2024-06-18 22:59 | DVH ---
EXAM: XY CHEST PORTABLE CLINICAL HISTORY: CHEST TUBE PLACEMENT TECHNIQUE: Single AP view of the chest WID: COMPARISON: XY CHEST PORTABLE on DOS: 06/18/24, FINDINGS: Lines and tubes: There are 2 right thoracostomy tubes. Right PICC with the tip projecting over the u pper right atrium endotracheal tube projects above the fredo. Gastric tube descends beneath the leve l of the diaphragm and tip not visualized in field of view. Chest: Mild cardiomegaly with pulmonary vascular congestion. Small right apical pneumothorax. Layering bilateral pleural effusions and mixed airspace opacities bi laterally greater on the left. The osseous structures are grossly intact. IMPRESSION: 1. Small right apical pneumothorax with 2 right thoracostomy tubes in place 2. Mild cardiomegaly, pulmonary vascular congestion, and layering bilateral pleural effusions. 3. Several indwelling support devices in place as described.
[2024-06-19] VITALS (100 sets, daily range): BP systolic 71–146; BP diastolic 28–81; PULSE 63–71; RESP 12–20; TEMP 97.3–98.4; O2SAT 91–100
[2024-06-19 05:03] LABS: Hematocrit 24.8 % (41.0-53.0); Hemoglobin 7.9 g/dL (13.5-17.5); Mean Corpuscular Hemoglobin 26.2 pg (28.0-32.0); Mean Corpuscular Hgb Conc. 31.8 g/dL (32.0-36.0); Mean Corpuscular Volume 82.4 fL (80.0-100.0); Platelet Count (auto) 351 10^3/uL (140-450); Red Blood Cells 3.01 10^6/uL (4.5-5.90); Red Cell Distribution Width 18.1 % (11.8-14.3); White Blood Cell 23.1 10^3/uL (4.4-10.8)
[2024-06-19 05:08] LABS: Band Neutrophils % (manual) 0; Basophils % (manual) 0 (0.0-2.0); Blast Cells 0; Promyelocytes % 0; Reactive Lymphocytes 0
--- NOTE | 2024-06-19 05:09 | DVH ---
Exam: US US GUIDED VASCULAR ACCESS Clinical History: PICC LINE PLACEMENT Comparison: None Findings: Targeted sonographic evaluation of the upper extremity veinwas obtained utilizing grayscale and color Doppler imaging. IMPRESSION: Sonographic assistance for central line placement. Please refer to procedural report for detailed fin dings.
--- NOTE | 2024-06-19 05:11 | DVH ---
EXAM: XR Chest, 1 View CLINICAL INDICATION: mech vent TECHNIQUE: Frontal view of the chest. COMPARISON: XY CHEST PORTABLE on DOS: 06/18/24, XY CHEST PORTABLE on DOS: 06/18/24, XY CHEST PORTABLE on DOS: 06/17/24, XY CHEST PORTABLE on DOS: 06/17/24, XY CHEST PORTABLE on DOS: 06/16/24 FINDINGS: LUNGS AND PLEURAL SPACES: Pulmonary congestion and edema. Pneumonia cannot be excluded. Bilateral p leural effusions. HEART: Unremarkable. No cardiomegaly. MEDIASTINUM: Unremarkable. Normal mediastinal contour. BONES/JOINTS: Unremarkable. No acute fracture. TUBES, LINES AND DEVICES: Right-sided pigtail chest tube. Small right pneumothorax. Stable tubes a nd lines. OTHER FINDINGS: . IMPRESSION: 1. Pulmonary congestion and edema. Pneumonia cannot be excluded. 2. Right-sided pigtail chest tube. Small right pneumothorax. 3. Bilateral pleural effusions.
[2024-06-19 05:22] LABS: Alanine Aminotransferase 145 U/L (7-40); Alkaline Phosphatase 363 U/L (46-116); Anion Gap 6 (5-15); Aspartate Aminotransferase 144 U/L (13-40); BUN/Creatinine Ratio 59.3 (10.0-20.0); Bilirubin, Total 3.2 mg/dL (0.2-1.0); Blood Urea Nitrogen 32 mg/dL (9-23); Calcium 8.2 mg/dL (8.7-10.4); Carbon Dioxide 33 mmol/L (20-31); Chloride 100 mmol/L (98-107); Glucose 91 mg/dL (74-106); Magnesium 2.1 mg/dL (1.6-2.6); Potassium 3.3 mmol/L (3.5-5.1); Sodium 139 mmol/L (136-145); Total Protein 5.1 g/dL (5.7-8.2)
[2024-06-19 05:35] LABS: INR 1.14 (0.9-1.15); Partial Thromboplastin Time 36.4 SEC (24.5-34.5); Prothrombin Time 11.9 sec (9.3-11.8)
[2024-06-19] MEDS: POTASSIUM CHL 20MEQ/100ML 100 ML IV SCH (05:55)
[2024-06-19 06:00] LABS: Anisocytosis Slight; Eosinophils % (manual) 1 (0-7); Lymphocytes % (manual) 8 (10.0-50.0); Metamyelocytes % 1; Monocytes % (manual) 5 (0-12); Myelocytes % 2; Platelet Estimate Adequate
[2024-06-19 06:31] LABS: Base Excess 8.1 mmol/L (-2.0-3.0)
--- NOTE | 2024-06-19 08:11 | DVHPN2 ---
Progress Note Date Seen: Jun 19, 2024 Medical Necessity Reason Pt with a Central, PICC or Fol: Yes The following are medically ne: Olsen Catheter Reason for olsen catheter: Strict I&O Objective vital signs Vital Sign Date Time Temp Pulse Resp B/P (MAP) Pulse Ox O2 Delivery O2 Flow Rate FiO2 06/19/24 08:00 16 92 Mechanical Ventilator+ 40 40 06/19/24 07:50 107/45 06/19/24 06:45 70 06/19/24 04:00 98.3 98.3 Total Intake and Output 06/18/24 06/18/24 06/19/24 15:00 23:00 07:00 Intake Total 398.916 ml 807.421 ml 772.736 ml Output Total 2130 ml 1445 ml Balance 398.916 ml -1322.579 ml -672.264 ml medications Current Medications Medications Dose Ordered Sig/Amy Route Start Time Stop Time Status Last Admin Dose Admin Potassium Chloride 100 ml @ 50 mls/hr Q2H IV 05/27/24 17:15 05/28/24 01:14 UNV Diagnostic Test (Pha) 1 strip Q6HR 05/30/24 18:00 06/19/24 05:16 1 STRIP Insulin Human Regular FOLLOW SLIDING SCALE Q6HR SC 05/30/24 18:00 06/11/24 18:33 2 UNITS Dextrose 50 ml UD IV 05/30/24 12:15 Acetaminophen 650 mg Q6HP PRN PO 05/31/24 19:30 06/10/24 14:37 650 MG Midazolam HCl 50 ml @ 1 mls/hr Q24H IV 06/08/24 20:15 06/19/24 02:30 5 MLS/HR Norepinephrine Bitartrate 32 mg/ Sodium Chloride 250 ml @ 0.938 mls/ hr Q24H IV 06/11/24 15:30 06/18/24 08:33 8.438 MLS/HR Potassium Chloride 100 ml @ 50 mls/hr Q2H IV 06/13/24 12:45 06/13/24 16:44 UNV Magnesium Sulfate/ Dextrose 100 ml @ 100 mls/hr Q1HR IV 06/13/24 13:00 06/13/24 14:59 UNV Cefepime HCl 50 ml @ 12.5 mls/hr Q8HR IV 06/13/24 14:00 UNV Enoxaparin Sodium 30 mg BID SC 06/14/24 22:00 06/17/24 21:29 30 MG Furosemide 100 mg/ Sodium Chloride 110 ml @ 4.4 mls/hr Q24H IV 06/14/24 14:15 06/19/24 07:50 4.4 MLS/HR Fentanyl Citrate 250 ml @ 2.5 mls/hr Q24H IV 06/15/24 16:00 06/19/24 03:37 22.5 MLS/HR Sodium Chloride 10 ml QSHIFT@10,22 IV 06/17/24 22:00 06/18/24 22:00 10 ML Pantoprazole Sodium 40 mg DAILY IV 06/18/24 10:00 06/18/24 10:18 40 MG Piperacillin Sod/ Tazobactam Sod 100 ml @ 25 mls/hr Q6H IV 06/18/24 18:00 06/19/24 05:16 25 MLS/HR Linezolid 300 ml @ 150 mls/hr Q12HR IV 06/18/24 11:00 06/18/24 22:51 150 MLS/HR Enteral Nutritional Formula 1,000 ml 30ML/HR GT 06/18/24 16:15 Potassium Chloride 100 ml @ 50 mls/hr Q2H IV 06/19/24 05:45 06/19/24 09:44 06/19/24 07:50 50 MLS/HR laboratory and microbiology Laboratory Tests 06/19/24 04:40 Test 06/19/24 04:40 Range/Units Serum Glucose 91 74-106 mg/dL Problem List/Assessment/Plan Problem List/Assessment/Plan 06/19/24 notified by nurses that they are unable to obtain a consent from family. As debridement does not constitute a surgical emergency I will post pone an operation until an appropriate consent is obtained, please notify me when consent accomplished Plan discussed with: Other Dietary Evaluation Review Comments: 1. consider Renal Specific 70g protein restriction witn 2GNa, 3K, low Phos, if no diaylsis needed. 2. consider Renal Standard 2gn, 3K, low phosphate diet if Pt is on dialysis. 3. encourage and monitor po intake to meet 75% of his needs. Expected Outcomes/Goals: avoid uremic symptoms, gradual healed wounds. JIHAN HENDERSON MD Jun 19, 2024 08:11
[2024-06-19] MEDS ORDERED: PHENYLEPHRINE HCL 10 MG/ML VL ONE (11:31)
[2024-06-19] MEDS ORDERED: fentaNYL CITRATE 100 MCG/2 ML VL ONE (12:15)
--- NOTE | 2024-06-19 12:47 | DVHOP2 ---
Operative Report - 2 Report Details Date: 06/19/24 Preop Diagnosis: necrotic sacral wound tissue Postop Diagnosis: necrotic sacral wound tissue Surgeon: Dr. Tilley Sales Data Analyst: Nita VALLE Anesthesiologist: Dr. Flores Anesthesia: General Consent: The patient was informed of the risks and benefits of the procedure. These include but are not limited to complications of anesthesia, postoperative infection, incomplete relief of symptoms, recurrence of symptoms, damage to blood vessels, nerves and tendons, deep venous thrombosis, pulmonary embolism and possible need for repeat surgery in the future. Indications for Surgery: necrotic sacral wound Name of Procedure Performed incision and drainage and debridement of sacral wound Procedure Details Procedure Details: Under the supervision of Dr. Tilley the patient was placed in a right lateral position. The sacral area was prepped and draped. After a proper time out the incision, drainage and debridement was completed. The necrotic tissue was sent to pathology and culture were obtained from the sacral wound. The sacral wound was than pulse lavaged with 1 liter of normal saline. A Kerlix gauze saturated in Betadine solution was placed over the wound and covered with ABD pad and tape. All sponge and blade counts were correct. Patient was transferred back to his room. Specimen: necrotic tissue Condition Poor Disposition Still a Patient NITA CEDENO NP Jun 19, 2024 12:47
--- NOTE | 2024-06-19 14:55 | DVHPN2 ---
Progress Note - Dictate Date Seen: Jun 19, 2024 Medical Necessity Reason Pt with a Central, PICC or Fol: Yes The following are medically ne: Olsen Catheter Reason for olsen catheter: Strict I&O Subjective PT WITH SS COMPLEX INCRESEING SOB HARVEY LE EDEMA HFrEF CHRONIC AND ACUTE NOW WITH HEMOPTYSIS TACHYCARDIA CTA LUNG C/W PE ACUTE vital signs Vital Sign Date Time Temp Pulse Resp B/P (MAP) Pulse Ox O2 Delivery O2 Flow Rate FiO2 06/19/24 14:09 65 16 104/38 (60) 99 40 06/19/24 11:45 97.7 97.7 06/19/24 10:00 Mechanical Ventilator+ Total Intake and Output 06/18/24 06/18/24 06/19/24 15:00 23:00 07:00 Intake Total 398.916 ml 807.421 ml 925.984 ml Output Total 2130 ml 1445 ml Balance 398.916 ml -1322.579 ml -519.016 ml medications Current Medications Medications Dose Ordered Sig/Amy Route Start Time Stop Time Status Last Admin Dose Admin Potassium Chloride 100 ml @ 50 mls/hr Q2H IV 05/27/24 17:15 05/28/24 01:14 UNV Diagnostic Test (Pha) 1 strip Q6HR 05/30/24 18:00 06/19/24 11:25 1 STRIP Insulin Human Regular FOLLOW SLIDING SCALE Q6HR SC 05/30/24 18:00 06/11/24 18:33 2 UNITS Dextrose 50 ml UD IV 05/30/24 12:15 Acetaminophen 650 mg Q6HP PRN PO 05/31/24 19:30 06/10/24 14:37 650 MG Midazolam HCl 50 ml @ 1 mls/hr Q24H IV 06/08/24 20:15 06/19/24 09:49 5 MLS/HR Norepinephrine Bitartrate 32 mg/ Sodium Chloride 250 ml @ 0.938 mls/ hr Q24H IV 06/11/24 15:30 06/18/24 08:33 8.438 MLS/HR Potassium Chloride 100 ml @ 50 mls/hr Q2H IV 06/13/24 12:45 06/13/24 16:44 UNV Magnesium Sulfate/ Dextrose 100 ml @ 100 mls/hr Q1HR IV 06/13/24 13:00 06/13/24 14:59 UNV Cefepime HCl 50 ml @ 12.5 mls/hr Q8HR IV 06/13/24 14:00 UNV Enoxaparin Sodium 30 mg BID SC 06/14/24 22:00 06/17/24 21:29 30 MG Furosemide 100 mg/ Sodium Chloride 110 ml @ 4.4 mls/hr Q24H IV 06/14/24 14:15 06/19/24 07:50 4.4 MLS/HR Fentanyl Citrate 250 ml @ 2.5 mls/hr Q24H IV 06/15/24 16:00 06/19/24 14:07 22.5 MLS/HR Sodium Chloride 10 ml QSHIFT@10,22 IV 06/17/24 22:00 06/19/24 09:35 10 ML Pantoprazole Sodium 40 mg DAILY IV 06/18/24 10:00 06/19/24 09:34 40 MG Piperacillin Sod/ Tazobactam Sod 100 ml @ 25 mls/hr Q6H IV 06/18/24 18:00 06/19/24 14:04 25 MLS/HR Linezolid 300 ml @ 150 mls/hr Q12HR IV 06/18/24 11:00 06/19/24 09:35 150 MLS/HR Enteral Nutritional Formula 1,000 ml 30ML/HR GT 06/18/24 16:15 objective PUL DIFF RHONCHI JVD ANGLE OF THE JAW CV RR PMI DIFFUSE EXT 3+ EDEMA laboratory and microbiology Laboratory Tests 06/19/24 04:40 Test 06/19/24 04:40 Range/Units Serum Glucose 91 74-106 mg/dL Problem List SS COMPLEX INCRESEING SOB HARVEY LE EDEMA HFrEF CHRONIC AND ACUTE EF < 20% NOW WITH HEMOPTYSIS TACHYCARDIA CTA LUNG C/W PE 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 Large filling defect right pulmonary artery consistent with pulmonary embolus. No film findings of pulmonary artery hypertension. No pulmonary emboli noted on the left. 2. Findings are also suggestive of right heart strain. 3. Large right pleural effusion. HEPARIN DRIP\ LASIX DRIP WILL START ORAL ANTICOAGULATION IN 48 HOURS ABX LE ARTERIAL DOPPLER NO SIGNIFICANT DISEASE FOR LIMB RISK DC HEPARIN START ELIQUIS S/P CT HEAD CURRENTLY ON BiPAP IMPROVING RESP STATUS 7.32/59/69 TITRATE BIPAP THORACENTESIS ULTRASOUND GUIDED MRI OF ABD S/P THORACENTESIS 2200 CC DRAINED CXR BILATERAL INFILTRATE PROMINENT MEDIASTINUM CARDIOMEGALY HYPOKALEMIA BEING CORRECTED A FLUTTER S/P CARDIOVERSION SINUS RHYTHM TITRATE OFF LEVOPHED USE ALBUMIN FOR PRESSURE SUPORT DC LASIX DRIP START D5 1/4 NS AT 125 CC/HR BMP/ BNP DAILY cont volume replacement contraction alkalosis leukocytosis improved monitor h/h HYPERNATREMIA IMPROVING DIAMOX X 1 DOSE HYPERNATREMIA CORRECTED DC IV FLUID CONT TPN INCREASE VENT SETTING TO AC 22 EPISODE OF VT CORRECT ACIDOSIS MAG SO4 2 G TITRATE OFF LEVOPHED DIAMOX TREAT METABOLIC ALKALOSIS RESP ACIDOSIS START TITRATING OFF SEDATION IMPROVED RESP PARAMETERS LIVER ENZYMES STILL ELEVATED wean off sedation CORRECT HYPERNATREMIA CHECK BNP AICD IMPLANTATION PT DEVELOPED PNEUMOTHORAX DELAYING EXTUBATION PNEUMOTHORAX IMPROVED LEUKOCYTOSIS AGAIN ELECTTOLYTES BETTER NOW CXR CONSISTENT WITH CHF CORRECT K AND Mg CHANGE ABX VANCO AND AZTREONAM EPOGEN IRON DC ELIQUIS START LOVENOX WBC CONTINUES TO INCREASE NEEDS SURGICAL DEBRIDEMENT OF DECUB CXR WORSENING EFFUSION AND FLUID OVERLOAD START LASIX DRIP CXR CONSISTENT WITH MULTIFOCAL CONSOLIDATION EXCELLENT DIURESIS WITH LASIX DRIP MONITOR FLUID STATUS NEEDS DEBRIDEMENT OF DECUB WITH PERSISTENT LEUKOCYTOSIS CONSIDER BRONCHOSCOPY TO CLEAR CONSOLIDATION/ MUCUS Dietary Evaluation Review Comments: 1. consider Renal Specific 70g protein restriction witn 2GNa, 3K, low Phos, if no diaylsis needed. 2. consider Renal Standard 2gn, 3K, low phosphate diet if Pt is on dialysis. 3. encourage and monitor po intake to meet 75% of his needs. Expected Outcomes/Goals: avoid uremic symptoms, gradual healed wounds. Plan discussed with: Patient Critical Care Time(min): 35 ISSAC SHAH MD Jun 19, 2024 14:55
--- NOTE | 2024-06-19 14:57 | DVHPNRES ---
Progress Note Date Seen: Jun 19, 2024 Resident Creating Document: FARIDA HOLT RESIDENT Medical Necessity Reason Pt with a Central, PICC or Fol: Yes The following are medically ne: Olsen Catheter Reason for olsen catheter: Strict I&O Subjective Review of Systems Pt seen and examined at bedside He is currently sedated and intubated pt went for surgical debridement today. ROS could not be done as patient is sedated and intubated Objective vital signs Vital Sign Date Time Temp Pulse Resp B/P (MAP) Pulse Ox O2 Delivery O2 Flow Rate FiO2 06/19/24 14:09 65 16 104/38 (60) 99 40 06/19/24 11:45 97.7 97.7 06/19/24 10:00 Mechanical Ventilator+ Total Intake and Output 06/18/24 06/18/24 06/19/24 15:00 23:00 07:00 Intake Total 398.916 ml 807.421 ml 925.984 ml Output Total 2130 ml 1445 ml Balance 398.916 ml -1322.579 ml -519.016 ml medications Current Medications Medications Dose Ordered Sig/Amy Route Start Time Stop Time Status Last Admin Dose Admin Potassium Chloride 100 ml @ 50 mls/hr Q2H IV 05/27/24 17:15 05/28/24 01:14 UNV Diagnostic Test (Pha) 1 strip Q6HR 05/30/24 18:00 06/19/24 11:25 1 STRIP Insulin Human Regular FOLLOW SLIDING SCALE Q6HR SC 05/30/24 18:00 06/11/24 18:33 2 UNITS Dextrose 50 ml UD IV 05/30/24 12:15 Acetaminophen 650 mg Q6HP PRN PO 05/31/24 19:30 06/10/24 14:37 650 MG Midazolam HCl 50 ml @ 1 mls/hr Q24H IV 06/08/24 20:15 06/19/24 09:49 5 MLS/HR Norepinephrine Bitartrate 32 mg/ Sodium Chloride 250 ml @ 0.938 mls/ hr Q24H IV 06/11/24 15:30 06/18/24 08:33 8.438 MLS/HR Potassium Chloride 100 ml @ 50 mls/hr Q2H IV 06/13/24 12:45 06/13/24 16:44 UNV Magnesium Sulfate/ Dextrose 100 ml @ 100 mls/hr Q1HR IV 06/13/24 13:00 06/13/24 14:59 UNV Cefepime HCl 50 ml @ 12.5 mls/hr Q8HR IV 06/13/24 14:00 UNV Enoxaparin Sodium 30 mg BID SC 06/14/24 22:00 06/17/24 21:29 30 MG Furosemide 100 mg/ Sodium Chloride 110 ml @ 4.4 mls/hr Q24H IV 06/14/24 14:15 06/19/24 07:50 4.4 MLS/HR Fentanyl Citrate 250 ml @ 2.5 mls/hr Q24H IV 06/15/24 16:00 06/19/24 14:07 22.5 MLS/HR Sodium Chloride 10 ml QSHIFT@10,22 IV 06/17/24 22:00 06/19/24 09:35 10 ML Pantoprazole Sodium 40 mg DAILY IV 06/18/24 10:00 06/19/24 09:34 40 MG Piperacillin Sod/ Tazobactam Sod 100 ml @ 25 mls/hr Q6H IV 06/18/24 18:00 06/19/24 14:04 25 MLS/HR Linezolid 300 ml @ 150 mls/hr Q12HR IV 06/18/24 11:00 06/19/24 09:35 150 MLS/HR Enteral Nutritional Formula 1,000 ml 30ML/HR GT 06/18/24 16:15 Examination Examination General Appearance: sedated and intubated Respiratory: Clear to auscultation, Normal air movement, chest tube present right upper and lower lobe, air leak present in lower chest tube Cardiovascular: Regular rate, Normal S1, Normal S2 Abdominal: Normal bowel sounds Extremities: No cyanosis, No edema, Normal pulses, No tenderness/swelling Skin: sacral ulcer unstageable Neuro: sedated and intubation laboratory and microbiology Laboratory Tests 06/19/24 04:40 Test 06/19/24 04:40 Range/Units Serum Glucose 91 74-106 mg/dL Microbiology Date/Time Source Procedure Growth Status 06/18/24 13:11 Blood Blood Culture - Preliminary NO GROWTH AFTER 24 HOURS OF INCUBATION. Resulted 06/18/24 01:09 Catheter Tip Aerobic Culture - Preliminary Resulted 06/17/24 08:50 Urine - Olsen Port Urine Culture - Preliminary Pseudomonas aeruginosa Resulted 06/09/24 14:37 Bronchial Washings Gram Stain - Final Complete 06/09/24 14:37 Respiratory Culture - Final Staphylococcus aureus Pseudomonas aeruginosa Complete 06/09/24 14:30 Pleural Fluid Gram Stain - Final Complete 06/09/24 14:30 Pleural Fluid Body Fluid Culture - Final Complete Labs and/or images reviewed: Labs reviewed by me, Image(s) reviewed by me Problem List/Assessment/Plan Problem List/Assessment/Plan Assessment/Plan 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, likely chronic -seen on head CT Cardiology # shock, likely cardiogenic/septic -currently on IV norepinephrine # Acute exacerbation of HFrEF -EF <20%, last echo 03/12/24 Currently on Lasix drip #moderate TR -seen on echo 03/12/24 #Severe MR -seen on echo 03/12/24 #Mild aortic insufficiency with Dilated aortic root and mild av calcification -seen on echo 03/12/24 #Mod Pulmonary hypertension -seen on echo 03/12/24 #Atrial flutter, currently sinus rhythm -had sync cardioversion on 05/27/24 -currently on amiodarone drip, will switch to oral amiodarone #Non-sustained Vtach -currently on amiodarone drip, will switch to oral amiodarone #Ectatic ascending aorta. -seen on imaging Respiratory #Acute hypoxic resp failure due to CHF exacerbation/pneumonia/pulmonary embolism -on [facility] vent, intubated on 05/26/24 -reintubation on 06/12/24 due to ETT leak # Acute pulmonary embolism with Right heart strain -seen on CT angio -pt was started on heparin drip, later was switched to eliquis -currently on prophylactic lovenox, will switch to therapeutic dose after surgery, based on risk/benefit # Large right pleural effusion -s/p multiple thoracentesis -pt has currently [address] 06/16/24 shows Moderate right pleural fluid collection with near complete collapse of the right lower lobe chest tube in place within the collection. #Right lower lobe atelectasis -seen on CT #Moderate right anterior pneumothorax --pt has currently 2 chest tubes #Multiple mucus plugs -pt had multiple bronchoscopies #Pneumonia, community acquired, gram +/- -sputum culture reveals Staph aureus and Pseudomonas -IV antibiotics based on culture sensitivity # Small left anterior pneumothorax -seen on CT Monitor # Moderate left pleural fluid collection with complete collapse of the left lower lobe -seen on CT -IV Lasix # left lower lobe atelectasis Seen on CT # pneumomediastinum -Small amount of pneumomediastinum, may be tracking from the bilateral pneumothoraces Nephrology # Hypernatremia -corrected # Hyperkalemia -corrected # hypokalemia Corrected # RADHA likely due to vasomotor nephropathy Monitor BMP # respiratory acidosis with metabolic alkalosis, resolved Monitor ABG # hypophosphatemia Corrected Hematology/oncology # anemia, normocytic Monitor # coagulopathy likely due to sepsis Monitor GI # Transaminitis likely due to sepsis -monitor # Moderate colonic diverticulosis -seen on imaging # Cholelithiasis -seen on imaging # complicated UTI -IV antibiotics based on culture -urine culture reveals Pseudomonas and Enterococcus Infectious disease #Sepsis with septic shock -IV antibiotics -currently on norepi drio #Sacral Wound, Unstageable -likely infected -IV antibiotics -surgery consulted for Wound debridement -had wound debridement today Lines PICC line 06/17/24 Left subclavian CVC line 06/05/24, removed 06/17/24 Right femoral A-line 06/03/24 Olsen catheter 05/21/24 Drips Norepi fentanyl Versed Lasix drip TPN, discontinued Amiodarone DVT prophylaxis Lovenox PPD prophylaxis IV Protonix Nutrition Jevity Bowel regimen Colace Code status discussed with the fiance, for >21 min : FULL CODE Fiance was updated about the condition of the patient and will have a meeting tomorrow for discussion about Tracheostomy Critical care time excluding procedures : 81 minutes Case discussion with Dr Clayton Plan discussed with: Other My Orders My Orders Orders - FARIDA HOLT RESIDENT Procedure Category Date Status Time Chest Portable XY 06/19/24 Resulted 04:00 Abg W/ Co-Ox RT 06/19/24 Logged 04:00 Chest Portable XY 06/18/24 Resulted 21:48 Respiratory Misc. RT 06/19/24 Transmitted Order 08:24 Dietary Evaluation Review Comments: 1. consider Renal Specific 70g protein restriction witn 2GNa, 3K, low Phos, if no diaylsis needed. 2. consider Renal Standard 2gn, 3K, low phosphate diet if Pt is on dialysis. 3. encourage and monitor po intake to meet 75% of his needs. Expected Outcomes/Goals: avoid uremic symptoms, gradual healed wounds. Date of Service: Jun 20, 2024 Billing Provider: TIFFANY CLAYTON MD Common Visit Codes: 18278-[id number] CARE 30-74 MIN, [id number] CARE-EACH +30MIN FARIDA HOLT RESIDENT Jun 19, 2024 14:57 TIFFANY CLAYTON MD Jun 20, 2024 12:56
[2024-06-19 17:29] LABS: Basophils # (auto) 0.1 10 ^3/uL (0-0.2); Basophils % (auto) 0.4 % (0.0-2.0); Eosinophils # (auto) 0.3 10 ^3/uL (0-0.8); Eosinophils % (auto) 1.3 % (0.0-7.0); Hematocrit 23.4 % (41.0-53.0); Hemoglobin 7.5 g/dL (13.5-17.5); Lymphocytes # (auto) 1.1 10 ^3/uL (0.4-5.4); Lymphocytes % (auto) 4.8 % (10.0-50.0); Mean Corpuscular Hemoglobin 26.3 pg (28.0-32.0); Mean Corpuscular Hgb Conc. 31.9 g/dL (32.0-36.0); Mean Corpuscular Volume 82.5 fL (80.0-100.0); Monocytes # (auto) 1.3 10 ^3/uL (0-1.3); Monocytes % (auto) 5.5 % (0.0-12.0); Neutrophils # (auto) 20.1 10 ^3/uL (1.6-8.6); Platelet Count (auto) 333 10^3/uL (140-450); Red Blood Cells 2.84 10^6/uL (4.5-5.90); Red Cell Distribution Width 17.6 % (11.8-14.3); White Blood Cell 22.8 10^3/uL (4.4-10.8)
[2024-06-19] MEDS: BUPIVACAINE HCL 0 ML ONE (22:53)
[2024-06-19] MEDS: LIDOCAINE W/ EPINEPHRINE 1% 20ML VIAL ONE (22:53)
[2024-06-19] MEDS: BACITRACIN TOP OINT 1 UD PKG TOP ONE (22:53)
[2024-06-20] VITALS (104 sets, daily range): BP systolic 74–130; BP diastolic 27–53; PULSE 69–86; RESP 8–29; TEMP 98.1–99.3; O2SAT 89–100
--- NOTE | 2024-06-20 05:35 | DVH ---
CHEST RADIOGRAPH Indication: mech vent Technique: Single frontal view of the chest was obtained COMPARISON: XY CHEST PORTABLE on DOS: 06/19/24, XY CHEST PORTABLE on DOS: 06/18/24, XY CHEST PORTABLE o n DOS: 06/18/24, XY CHEST PORTABLE on DOS: 06/17/24, XY CHEST PORTABLE on DOS: 06/17/24 FINDINGS: Lines and Tubes: Endotracheal tube, enteric catheter and right chest tubes in satisfactory position. Lungs: Focal airspace disease. Pleura: Small bilateral pleural effusions. Small right apical pneumothorax. Cardiomediastinal contours: Unremarkable Bones: Unremarkable IMPRESSION: Lines and tubes in satisfactory position. No significant interval change.
[2024-06-20 06:19] LABS: Basophils # (auto) 0.2 10 ^3/uL (0-0.2); Basophils % (auto) 0.7 % (0.0-2.0); Eosinophils # (auto) 0.3 10 ^3/uL (0-0.8); Eosinophils % (auto) 1.4 % (0.0-7.0); Hematocrit 24.4 % (41.0-53.0); Hemoglobin 7.6 g/dL (13.5-17.5); Lymphocytes # (auto) 1.4 10 ^3/uL (0.4-5.4); Lymphocytes % (auto) 6.3 % (10.0-50.0); Mean Corpuscular Hemoglobin 25.8 pg (28.0-32.0); Mean Corpuscular Hgb Conc. 31.2 g/dL (32.0-36.0); Mean Corpuscular Volume 82.9 fL (80.0-100.0); Monocytes # (auto) 1.3 10 ^3/uL (0-1.3); Monocytes % (auto) 5.7 % (0.0-12.0); Neutrophils # (auto) 19.2 10 ^3/uL (1.6-8.6); Neutrophils % (auto) 85.9 % (37.0-80.0); Platelet Count (auto) 364 10^3/uL (140-450); Red Blood Cells 2.95 10^6/uL (4.5-5.90); Red Cell Distribution Width 18.5 % (11.8-14.3); White Blood Cell 22.4 10^3/uL (4.4-10.8)
[2024-06-20 06:28] LABS: Chloride 100 mmol/L (98-107); Potassium 3.5 mmol/L (3.5-5.1); Sodium 139 mmol/L (136-145)
[2024-06-20 06:29] LABS: Anion Gap 5 (5-15)
[2024-06-20 06:30] LABS: Calcium 7.9 mg/dL (8.7-10.4); Carbon Dioxide 34 mmol/L (20-31)
[2024-06-20 06:34] LABS: BUN/Creatinine Ratio 44.3 (10.0-20.0); Glucose 89 mg/dL (74-106)
[2024-06-20 06:35] LABS: Blood Urea Nitrogen 27 mg/dL (9-23); Magnesium 2.1 mg/dL (1.6-2.6)
--- NOTE | 2024-06-20 08:15 | ECG ---
[facility] Test Date: 2024-06-19 Test Time: 15:45:11 Pat Name: JOMAR GOFF Department: Room: 0261 A Gender: M Reconciliation Coordinator: franecsca : 1960 Requested By: FARIDA HOLT Order Number: [id number] Reading MD: Aubrie Raymundo Measurements Intervals [place] Rate: 63 P: -22 IN: 174 QRS: -2 QRSD: 101 T: 216 QT: 419 QTc: 429 Interpretive Statements Sinus rhythm Nonspecific T abnormalities, diffuse leads Electronically Signed On 06-20-2024 8:52:01 PST by Aubrie Raymundo Please click the below link to view image of tracing.
[2024-06-20 08:20] LABS: Base Excess 4.9 mmol/L (-2.0-3.0)
[2024-06-20 08:49] LABS: Hepatitis B Surface Antigen Negative (Negative)
[2024-06-20 09:08] LABS: Hepatitis C Antibody Negative (Negative)
[2024-06-20] MEDS: AMIODARONE HCL 200 MG TAB PO SCH (09:21)
[2024-06-20] MEDS: POTASSIUM EFFERVESENT TAB 25 MEQ GT ONE (09:22)
--- NOTE | 2024-06-20 11:49 | DVHPN2 ---
Progress Note - Dictate Date Seen: Jun 20, 2024 Medical Necessity Reason Pt with a Central, PICC or Fol: Yes The following are medically ne: Olsen Catheter Reason for olsen catheter: Strict I&O Subjective PT WITH SS COMPLEX INCRESEING SOB HARVEY LE EDEMA HFrEF CHRONIC AND ACUTE NOW WITH HEMOPTYSIS TACHYCARDIA CTA LUNG C/W PE ACUTE vital signs Vital Sign Date Time Temp Pulse Resp B/P (MAP) Pulse Ox O2 Delivery O2 Flow Rate FiO2 06/20/24 10:26 73 17 103/34 (57) 96 40 06/20/24 10:00 Mechanical Ventilator+ 06/20/24 08:00 98.2 98.2 Total Intake and Output 06/19/24 06/19/24 06/20/24 15:00 23:00 07:00 Intake Total 718.48 ml 521.294 ml 1008.480 ml Output Total 1250 ml 1200 ml Balance 718.48 ml -728.706 ml -191.520 ml medications Current Medications Medications Dose Ordered Sig/Amy Route Start Time Stop Time Status Last Admin Dose Admin Potassium Chloride 100 ml @ 50 mls/hr Q2H IV 05/27/24 17:15 05/28/24 01:14 UNV Diagnostic Test (Pha) 1 strip Q6HR 05/30/24 18:00 06/20/24 06:00 1 STRIP Insulin Human Regular FOLLOW SLIDING SCALE Q6HR SC 05/30/24 18:00 06/11/24 18:33 2 UNITS Dextrose 50 ml UD IV 05/30/24 12:15 Acetaminophen 650 mg Q6HP PRN PO 05/31/24 19:30 06/10/24 14:37 650 MG Midazolam HCl 50 ml @ 1 mls/hr Q24H IV 06/08/24 20:15 06/20/24 05:36 5 MLS/HR Norepinephrine Bitartrate 32 mg/ Sodium Chloride 250 ml @ 0.938 mls/ hr Q24H IV 06/11/24 15:30 06/19/24 15:39 3.75 MLS/HR Potassium Chloride 100 ml @ 50 mls/hr Q2H IV 06/13/24 12:45 06/13/24 16:44 UNV Magnesium Sulfate/ Dextrose 100 ml @ 100 mls/hr Q1HR IV 06/13/24 13:00 06/13/24 14:59 UNV Cefepime HCl 50 ml @ 12.5 mls/hr Q8HR IV 06/13/24 14:00 UNV Enoxaparin Sodium 30 mg BID SC 06/14/24 22:00 06/20/24 09:23 30 MG Furosemide 100 mg/ Sodium Chloride 110 ml @ 4.4 mls/hr Q24H IV 06/14/24 14:15 06/20/24 05:37 4.4 MLS/HR Fentanyl Citrate 250 ml @ 2.5 mls/hr Q24H IV 06/15/24 16:00 06/20/24 01:03 22.5 MLS/HR Sodium Chloride 10 ml QSHIFT@10,22 IV 06/17/24 22:00 06/20/24 09:26 10 ML Pantoprazole Sodium 40 mg DAILY IV 06/18/24 10:00 06/20/24 09:21 40 MG Piperacillin Sod/ Tazobactam Sod 100 ml @ 25 mls/hr Q6H IV 06/18/24 18:00 06/20/24 05:37 25 MLS/HR Linezolid 300 ml @ 150 mls/hr Q12HR IV 06/18/24 11:00 06/20/24 10:56 150 MLS/HR Enteral Nutritional Formula 1,000 ml 30ML/HR GT 06/18/24 16:15 Amiodarone HCl 200 mg Q12HR PO 06/20/24 10:00 06/20/24 09:21 200 MG objective PUL DIFF RHONCHI JVD ANGLE OF THE JAW CV RR PMI DIFFUSE EXT 3+ EDEMA laboratory and microbiology Laboratory Tests 06/20/24 06:04 Test 06/20/24 06:04 Range/Units Serum Glucose 89 74-106 mg/dL Problem List SS COMPLEX INCRESEING SOB HARVEY LE EDEMA HFrEF CHRONIC AND ACUTE EF < 20% NOW WITH HEMOPTYSIS TACHYCARDIA CTA LUNG C/W PE 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 Large filling defect right pulmonary artery consistent with pulmonary embolus. No film findings of pulmonary artery hypertension. No pulmonary emboli noted on the left. 2. Findings are also suggestive of right heart strain. 3. Large right pleural effusion. HEPARIN DRIP\ LASIX DRIP WILL START ORAL ANTICOAGULATION IN 48 HOURS ABX LE ARTERIAL DOPPLER NO SIGNIFICANT DISEASE FOR LIMB RISK DC HEPARIN START ELIQUIS S/P CT HEAD CURRENTLY ON BiPAP IMPROVING RESP STATUS 7.32/59/69 TITRATE BIPAP THORACENTESIS ULTRASOUND GUIDED MRI OF ABD S/P THORACENTESIS 2200 CC DRAINED CXR BILATERAL INFILTRATE PROMINENT MEDIASTINUM CARDIOMEGALY HYPOKALEMIA BEING CORRECTED A FLUTTER S/P CARDIOVERSION SINUS RHYTHM TITRATE OFF LEVOPHED USE ALBUMIN FOR PRESSURE SUPORT DC LASIX DRIP START D5 1/4 NS AT 125 CC/HR BMP/ BNP DAILY cont volume replacement contraction alkalosis leukocytosis improved monitor h/h HYPERNATREMIA IMPROVING DIAMOX X 1 DOSE HYPERNATREMIA CORRECTED DC IV FLUID CONT TPN INCREASE VENT SETTING TO AC 22 EPISODE OF VT CORRECT ACIDOSIS MAG SO4 2 G TITRATE OFF LEVOPHED DIAMOX TREAT METABOLIC ALKALOSIS RESP ACIDOSIS START TITRATING OFF SEDATION IMPROVED RESP PARAMETERS LIVER ENZYMES STILL ELEVATED wean off sedation CORRECT HYPERNATREMIA CHECK BNP AICD IMPLANTATION PT DEVELOPED PNEUMOTHORAX DELAYING EXTUBATION PNEUMOTHORAX IMPROVED LEUKOCYTOSIS AGAIN ELECTTOLYTES BETTER NOW CXR CONSISTENT WITH CHF CORRECT K AND Mg CHANGE ABX VANCO AND AZTREONAM EPOGEN IRON DC ELIQUIS START LOVENOX WBC CONTINUES TO INCREASE NEEDS SURGICAL DEBRIDEMENT OF DECUB CXR WORSENING EFFUSION AND FLUID OVERLOAD START LASIX DRIP CXR CONSISTENT WITH MULTIFOCAL CONSOLIDATION EXCELLENT DIURESIS WITH LASIX DRIP MONITOR FLUID STATUS NEEDS DEBRIDEMENT OF DECUB WITH PERSISTENT LEUKOCYTOSIS CONSIDER BRONCHOSCOPY TO CLEAR CONSOLIDATION/ MUCUS S/P DEBRIDEMENT OF STAGE IV DECUB LEUKOCYTOSIS TRENDING DOWN CHECK CXR CHECK BNP CORRECT K CONSIDER BRONCHOSCOPY Dietary Evaluation Review Comments: 1. consider Renal Specific 70g protein restriction witn 2GNa, 3K, low Phos, if no diaylsis needed. 2. consider Renal Standard 2gn, 3K, low phosphate diet if Pt is on dialysis. 3. encourage and monitor po intake to meet 75% of his needs. Expected Outcomes/Goals: avoid uremic symptoms, gradual healed wounds. Plan discussed with: Patient, Spouse Critical Care Time(min): 35 ISSAC SHAH MD Jun 20, 2024 11:49
[2024-06-20] MEDS: DOBUTamine 1000MCG/ML 250 ML IV SCH (13:33)
--- NOTE | 2024-06-20 18:04 | DVHPNRES ---
Progress Note Date Seen: Jun 20, 2024 Resident Creating Document: FARIDA HOLT RESIDENT Medical Necessity Reason Pt with a Central, PICC or Fol: Yes The following are medically ne: Olsen Catheter Reason for olsen catheter: Strict I&O Subjective Review of Systems Pt seen and examined at bedside He is currently sedated and intubated pt went for surgical debridement yesterday ROS could not be done as patient is sedated and intubated Objective vital signs Vital Sign Date Time Temp Pulse Resp B/P (MAP) Pulse Ox O2 Delivery O2 Flow Rate FiO2 06/20/24 17:43 92/35 06/20/24 16:15 86 19 99 06/20/24 16:15 50 06/20/24 16:00 98.4 98.4 06/20/24 14:00 Mechanical Ventilator+ Total Intake and Output 06/19/24 06/19/24 06/20/24 15:00 23:00 07:00 Intake Total 718.48 ml 521.294 ml 1008.480 ml Output Total 1250 ml 1200 ml Balance 718.48 ml -728.706 ml -191.520 ml medications Current Medications Medications Dose Ordered Sig/Amy Route Start Time Stop Time Status Last Admin Dose Admin Potassium Chloride 100 ml @ 50 mls/hr Q2H IV 05/27/24 17:15 05/28/24 01:14 UNV Diagnostic Test (Pha) 1 strip Q6HR 05/30/24 18:00 06/20/24 17:44 1 STRIP Insulin Human Regular FOLLOW SLIDING SCALE Q6HR SC 05/30/24 18:00 06/11/24 18:33 2 UNITS Dextrose 50 ml UD IV 05/30/24 12:15 Acetaminophen 650 mg Q6HP PRN PO 05/31/24 19:30 06/10/24 14:37 650 MG Midazolam HCl 50 ml @ 1 mls/hr Q24H IV 06/08/24 20:15 06/20/24 17:43 5 MLS/HR Norepinephrine Bitartrate 32 mg/ Sodium Chloride 250 ml @ 0.938 mls/ hr Q24H IV 06/11/24 15:30 06/19/24 15:39 3.75 MLS/HR Potassium Chloride 100 ml @ 50 mls/hr Q2H IV 06/13/24 12:45 06/13/24 16:44 UNV Magnesium Sulfate/ Dextrose 100 ml @ 100 mls/hr Q1HR IV 06/13/24 13:00 06/13/24 14:59 UNV Cefepime HCl 50 ml @ 12.5 mls/hr Q8HR IV 06/13/24 14:00 UNV Enoxaparin Sodium 30 mg BID SC 06/14/24 22:00 06/20/24 09:23 30 MG Furosemide 100 mg/ Sodium Chloride 110 ml @ 4.4 mls/hr Q24H IV 06/14/24 14:15 06/20/24 05:37 4.4 MLS/HR Fentanyl Citrate 250 ml @ 2.5 mls/hr Q24H IV 06/15/24 16:00 06/20/24 12:21 22.5 MLS/HR Sodium Chloride 10 ml QSHIFT@10,22 IV 06/17/24 22:00 06/20/24 09:26 10 ML Pantoprazole Sodium 40 mg DAILY IV 06/18/24 10:00 06/20/24 09:21 40 MG Piperacillin Sod/ Tazobactam Sod 100 ml @ 25 mls/hr Q6H IV 06/18/24 18:00 06/20/24 17:43 25 MLS/HR Linezolid 300 ml @ 150 mls/hr Q12HR IV 06/18/24 11:00 06/20/24 10:56 150 MLS/HR Enteral Nutritional Formula 1,000 ml 30ML/HR GT 06/18/24 16:15 Amiodarone HCl 200 mg Q12HR PO 06/20/24 10:00 06/20/24 09:21 200 MG Dobutamine HCl/ Dextrose 250 ml @ 12.93 mls/ hr [id number] IV 06/20/24 13:00 06/20/24 13:33 12.93 MLS/HR Examination Examination General Appearance: sedated and intubated Respiratory: Clear to auscultation, Normal air movement, chest tube present right upper and lower lobe, air leak present in lower chest tube Cardiovascular: Regular rate, Normal S1, Normal S2 Abdominal: Normal bowel sounds Extremities: No cyanosis, No edema, Normal pulses, No tenderness/swelling Skin: sacral ulcer unstageable Neuro: sedated and intubation laboratory and microbiology Laboratory Tests 06/20/24 06:04 Test 06/20/24 06:04 Range/Units Serum Glucose 89 74-106 mg/dL Microbiology Date/Time Source Procedure Growth Status 06/19/24 21:00 Other Wound Gram Stain - Final Resulted 06/19/24 21:00 Other Wound Anaerobic Culture - Preliminary Resulted 06/19/24 21:00 Other Wound Aerobic Culture - Preliminary Resulted 06/18/24 13:11 Blood Blood Culture - Preliminary NO GROWTH AFTER 48 HOURS OF INCUBATION. Resulted 06/17/24 08:50 Urine - Olsen Port Urine Culture - Preliminary Pseudomonas aeruginosa Resulted 06/09/24 14:37 Bronchial Washings Gram Stain - Final Complete 06/09/24 14:37 Respiratory Culture - Final Staphylococcus aureus Pseudomonas aeruginosa Complete 06/09/24 14:30 Pleural Fluid Gram Stain - Final Complete 06/09/24 14:30 Pleural Fluid Body Fluid Culture - Final Complete Labs and/or images reviewed: Labs reviewed by me, Image(s) reviewed by me Problem List/Assessment/Plan Problem List/Assessment/Plan Assessment/Plan 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, likely chronic -seen on head CT Cardiology # shock, likely cardiogenic/septic -currently on IV norepinephrine # Acute exacerbation of HFrEF -EF <20%, last echo 03/12/24 Currently on Lasix drip started the pt on dobutamine drip #moderate TR -seen on echo 03/12/24 #Severe MR -seen on echo 03/12/24 #Mild aortic insufficiency with Dilated aortic root and mild av calcification -seen on echo 03/12/24 #Mod Pulmonary hypertension -seen on echo 03/12/24 #Atrial flutter, currently sinus rhythm -had sync cardioversion on 05/27/24 -currently on amiodarone drip, will switch to oral amiodarone #Non-sustained Vtach -currently on amiodarone drip, will switch to oral amiodarone #Ectatic ascending aorta. -seen on imaging Respiratory #Acute hypoxic resp failure due to CHF exacerbation/pneumonia/pulmonary embolism -on [facility] vent, intubated on 05/26/24 -reintubation on 06/12/24 due to ETT leak # Acute pulmonary embolism with Right heart strain -seen on CT angio -pt was started on heparin drip, later was switched to eliquis -currently on prophylactic Lovenox, will switch to therapeutic dose after surgery, based on risk/benefit # Large right pleural effusion -s/p multiple thoracentesis -pt has currently [address] 06/16/24 shows Moderate right pleural fluid collection with near complete collapse of the right lower lobe chest tube in place within the collection. #Right lower lobe atelectasis -seen on CT #Moderate right anterior pneumothorax --pt has currently 2 chest tubes #Multiple mucus plugs -pt had multiple bronchoscopies #Pneumonia, community acquired, gram +/- -sputum culture reveals Staph aureus and Pseudomonas -IV antibiotics based on culture sensitivity # Small left anterior pneumothorax -seen on CT Monitor # Moderate left pleural fluid collection with complete collapse of the left lower lobe -seen on CT -IV Lasix # left lower lobe atelectasis Seen on CT # pneumomediastinum -Small amount of pneumomediastinum, may be tracking from the bilateral pneumothoraces Nephrology # Hypernatremia -corrected # Hyperkalemia -corrected # hypokalemia Corrected # RADHA likely due to vasomotor nephropathy Monitor BMP # respiratory acidosis with metabolic alkalosis, resolved Monitor ABG # hypophosphatemia Corrected Hematology/oncology # anemia, normocytic Monitor # coagulopathy likely due to sepsis Monitor GI # Transaminitis likely due to sepsis -monitor # Moderate colonic diverticulosis -seen on imaging # Cholelithiasis -seen on imaging # complicated UTI -IV antibiotics based on culture -urine culture reveals Pseudomonas and Enterococcus Infectious disease #Sepsis with septic shock -IV antibiotics -currently on norepi drip #Sacral Wound, Unstageable -likely infected -IV antibiotics -surgery consulted for Wound debridement -had wound debridement today Lines PICC line 06/17/24 Left subclavian CVC line 06/05/24, removed 06/17/24 Right femoral A-line 06/03/24 Olsen catheter 05/21/24 Drips Norepi fentanyl Versed Lasix drip TPN, discontinued Amiodarone, discontinued and switched to amiodarone tablet Dobutamine DVT prophylaxis Lovenox PPD prophylaxis IV Protonix Nutrition Jevity Bowel regimen Colace Code status discussed with the fiance, for >21 min : FULL CODE Fiance ( POA ) was updated about the condition of the patient at bedside Critical care time excluding procedures : 65 minutes Case discussion with Dr Clayton Plan discussed with: Other My Orders My Orders Orders - FARIDA HOLT Procedure Category Date Status Time Chest Portable XY 06/20/24 Resulted 04:00 Abg W/ Co-Ox RT 06/20/24 Logged 04:00 Amiodarone Tablet PHA 06/20/24 In Process (Cordarone Tablet) 10:00 Dietary Evaluation Review Comments: 1. consider Renal Specific 70g protein restriction witn 2GNa, 3K, low Phos, if no diaylsis needed. 2. consider Renal Standard 2gn, 3K, low phosphate diet if Pt is on dialysis. 3. encourage and monitor po intake to meet 75% of his needs. Expected Outcomes/Goals: avoid uremic symptoms, gradual healed wounds. Date of Service: Jun 20, 2024 Billing Provider: TIFFANY CLAYTON MD Common Visit Codes: [id number] CARE 30-74 MIN FARIDA HOLT RESIDENT Jun 20, 2024 18:04 TIFFANY CLAYTON MD Jun 23, 2024 15:38
[2024-06-21] VITALS (110 sets, daily range): BP systolic 75–153; BP diastolic 27–54; PULSE 65–84; RESP 15–21; TEMP 98.1–100; O2SAT 90–100
[2024-06-21 05:19] LABS: Basophils # (auto) 0.2 10 ^3/uL (0-0.2); Basophils % (auto) 0.6 % (0.0-2.0); Eosinophils # (auto) 0.1 10 ^3/uL (0-0.8); Eosinophils % (auto) 0.4 % (0.0-7.0); Hematocrit 22.3 % (41.0-53.0); Lymphocytes # (auto) 1.4 10 ^3/uL (0.4-5.4); Lymphocytes % (auto) 5.5 % (10.0-50.0); Mean Corpuscular Hemoglobin 26.3 pg (28.0-32.0); Monocytes # (auto) 0.8 10 ^3/uL (0-1.3); Monocytes % (auto) 3.1 % (0.0-12.0); Neutrophils # (auto) 23.7 10 ^3/uL (1.6-8.6); Neutrophils % (auto) 90.4 % (37.0-80.0); Nucleated Red Blood Cells % 0.1 %; Platelet Count (auto) 315 10^3/uL (140-450); Red Blood Cells 2.63 10^6/uL (4.5-5.90); Red Cell Distribution Width 18.7 % (11.8-14.3); White Blood Cell 26.2 10^3/uL (4.4-10.8)
[2024-06-21 05:21] LABS: Hemoglobin 6.9 g/dL (13.5-17.5)
[2024-06-21 05:30] LABS: Chloride 99 mmol/L (98-107); Sodium 138 mmol/L (136-145)
[2024-06-21 05:31] LABS: Anion Gap 4 (5-15)
[2024-06-21 05:36] LABS: BUN/Creatinine Ratio 41.9 (10.0-20.0)
[2024-06-21 05:37] LABS: Magnesium 1.9 mg/dL (1.6-2.6)
--- NOTE | 2024-06-21 05:38 | DVH ---
EXAM: XR Chest, 1 View CLINICAL INDICATION: mech vent TECHNIQUE: Frontal view of the chest. COMPARISON: XY CHEST PORTABLE on DOS: 06/20/24, XY CHEST PORTABLE on DOS: 06/19/24, XY CHEST PORTABLE on DOS: 06/18/24, XY CHEST PORTABLE on DOS: 06/18/24, XY CHEST PORTABLE on DOS: 06/17/24 FINDINGS: LUNGS AND PLEURAL SPACES: Probable left hydropneumothorax. Pulmonary congestion and edema. Bilate ral pleural effusions. HEART: Unremarkable. No cardiomegaly. MEDIASTINUM: Unremarkable. Normal mediastinal contour. BONES/JOINTS: Unremarkable. No acute fracture. TUBES, LINES AND DEVICES: Stable tubes and lines. OTHER FINDINGS: . . IMPRESSION: 1. Probable left hydropneumothorax. 2. Pulmonary congestion and edema.
[2024-06-21 05:41] LABS: Blood Urea Nitrogen 26 mg/dL (9-23); Calcium 8.4 mg/dL (8.7-10.4); Carbon Dioxide 35 mmol/L (20-31); Glucose 128 mg/dL (74-106); Potassium 3.4 mmol/L (3.5-5.1)
[2024-06-21] MEDS: POTASSIUM CHL 20MEQ/100ML 100 ML IV SCH (06:56)
[2024-06-21] MEDS ORDERED: PHENYLEPHRINE INJ 80 MG in SODIUM CHL 0.9% 242 ML IV SCH (07:30)
[2024-06-21] MEDS: MEROPENEM 1GM IVPB 50 ML IV ONE (08:21)
--- NOTE | 2024-06-21 09:11 | ECG ---
[facility] Test Date: 2024-06-20 Test Time: 22:43:06 Pat Name: JOMAR GOFF Department: Room: 0261 A Gender: M Paramedic: JOSÉ MIGUEL : 1960 Requested By: ISSAC SHAH Order Number: [id number] Reading MD: Measurements Intervals [place] Rate: 91 P: 69 NE: 195 QRS: 122 QRSD: 98 T: 57 QT: 340 QTc: 419 Interpretive Statements Sinus rhythm Left atrial enlargement Low voltage, extremity and precordial leads Abnormal R-wave progression, early transition Minimal ST depression ST elevation, consider lateral injury Baseline wander in lead(s) V2,V6 Please click the below link to view image of tracing.
[2024-06-21 09:48] LABS: Base Excess 5.3 mmol/L (-2.0-3.0)
[2024-06-21] MEDS: VASOPRESSIN 20 UNITS in SODIUM CHL 0.9% 99 ML IV SCH (11:02)
--- NOTE | 2024-06-21 13:14 | DVHPN2 ---
Progress Note - Dictate Date Seen: Jun 21, 2024 Medical Necessity Reason Pt with a Central, PICC or Fol: Yes The following are medically ne: Olsen Catheter Reason for olsen catheter: Strict I&O Subjective PT WITH SS COMPLEX INCRESEING SOB HARVEY LE EDEMA HFrEF CHRONIC AND ACUTE NOW WITH HEMOPTYSIS TACHYCARDIA CTA LUNG C/W PE ACUTE vital signs Vital Sign Date Time Temp Pulse Resp B/P (MAP) Pulse Ox O2 Delivery O2 Flow Rate FiO2 06/21/24 12:56 99.0 70 16 106/37 99.0 06/21/24 11:40 40 06/21/24 11:40 100 Mechanical Ventilator+ Total Intake and Output 06/20/24 06/20/24 06/21/24 15:00 23:00 07:00 Intake Total 836.2435 ml 837.393 ml 1258.64 ml Output Total 1425 ml 800 ml Balance 836.2435 ml -587.607 ml 458.64 ml medications Current Medications Medications Dose Ordered Sig/Amy Route Start Time Stop Time Status Last Admin Dose Admin Potassium Chloride 100 ml @ 50 mls/hr Q2H IV 05/27/24 17:15 05/28/24 01:14 UNV Diagnostic Test (Pha) 1 strip Q6HR 05/30/24 18:00 06/21/24 11:42 1 STRIP Insulin Human Regular FOLLOW SLIDING SCALE Q6HR SC 05/30/24 18:00 06/11/24 18:33 2 UNITS Dextrose 50 ml UD IV 05/30/24 12:15 Acetaminophen 650 mg Q6HP PRN PO 05/31/24 19:30 06/10/24 14:37 650 MG Midazolam HCl 50 ml @ 1 mls/hr Q24H IV 06/08/24 20:15 06/21/24 03:04 5 MLS/HR Norepinephrine Bitartrate 32 mg/ Sodium Chloride 250 ml @ 0.938 mls/ hr Q24H IV 06/11/24 15:30 06/21/24 01:42 11.25 MLS/HR Potassium Chloride 100 ml @ 50 mls/hr Q2H IV 06/13/24 12:45 06/13/24 16:44 UNV Magnesium Sulfate/ Dextrose 100 ml @ 100 mls/hr Q1HR IV 06/13/24 13:00 06/13/24 14:59 UNV Cefepime HCl 50 ml @ 12.5 mls/hr Q8HR IV 06/13/24 14:00 UNV Enoxaparin Sodium 30 mg BID SC 06/14/24 22:00 06/20/24 21:52 30 MG Furosemide 100 mg/ Sodium Chloride 110 ml @ 4.4 mls/hr Q24H IV 06/14/24 14:15 06/21/24 03:05 4.4 MLS/HR Fentanyl Citrate 250 ml @ 2.5 mls/hr Q24H IV 06/15/24 16:00 06/21/24 08:20 22.5 MLS/HR Sodium Chloride 10 ml QSHIFT@10,22 IV 06/17/24 22:00 06/21/24 09:34 10 ML Pantoprazole Sodium 40 mg DAILY IV 06/18/24 10:00 06/21/24 09:33 40 MG Linezolid 300 ml @ 150 mls/hr Q12HR IV 06/18/24 11:00 06/21/24 09:33 150 MLS/HR Enteral Nutritional Formula 1,000 ml 30ML/HR GT 06/18/24 16:15 Amiodarone HCl 200 mg Q12HR PO 06/20/24 10:00 06/21/24 09:33 200 MG Dobutamine HCl/ Dextrose 250 ml @ 12.93 mls/ hr [id number] IV 06/20/24 13:00 06/21/24 05:50 12.93 MLS/HR Vasopressin 20 units/Sodium Chloride 100 ml @ 9 mls/hr Q11H7M IV 06/21/24 07:45 06/21/24 11:02 9 MLS/HR Meropenem 50 ml @ 17 mls/hr Q8HR IV 06/21/24 14:00 objective PUL DIFF RHONCHI JVD ANGLE OF THE JAW CV RR PMI DIFFUSE EXT 3+ EDEMA laboratory and microbiology Laboratory Tests 06/21/24 04:40 Test 06/21/24 04:40 Range/Units Serum Glucose 128 H 74-106 mg/dL Problem List SS COMPLEX INCRESEING SOB HARVEY LE EDEMA HFrEF CHRONIC AND ACUTE EF < 20% NOW WITH HEMOPTYSIS TACHYCARDIA CTA LUNG C/W PE 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 Large filling defect right pulmonary artery consistent with pulmonary embolus. No film findings of pulmonary artery hypertension. No pulmonary emboli noted on the left. 2. Findings are also suggestive of right heart strain. 3. Large right pleural effusion. HEPARIN DRIP\ LASIX DRIP WILL START ORAL ANTICOAGULATION IN 48 HOURS ABX LE ARTERIAL DOPPLER NO SIGNIFICANT DISEASE FOR LIMB RISK DC HEPARIN START ELIQUIS S/P CT HEAD CURRENTLY ON BiPAP IMPROVING RESP STATUS 7.32/59/69 TITRATE BIPAP THORACENTESIS ULTRASOUND GUIDED MRI OF ABD S/P THORACENTESIS 2200 CC DRAINED CXR BILATERAL INFILTRATE PROMINENT MEDIASTINUM CARDIOMEGALY HYPOKALEMIA BEING CORRECTED A FLUTTER S/P CARDIOVERSION SINUS RHYTHM TITRATE OFF LEVOPHED USE ALBUMIN FOR PRESSURE SPORT DC LASIX DRIP START D5 1/4 NS AT 125 CC/HR BMP/ BNP DAILY cont volume replacement contraction alkalosis leukocytosis improved monitor h/h HYPERNATREMIA IMPROVING DIAMOX X 1 DOSE HYPERNATREMIA CORRECTED DC IV FLUID CONT TPN INCREASE VENT SETTING TO AC 22 EPISODE OF [place] CORRECT ACIDOSIS MAG SO4 2 G TITRATE OFF LEVOPHED DIAMOX TREAT METABOLIC ALKALOSIS RESP ACIDOSIS START TITRATING OFF SEDATION IMPROVED RESP PARAMETERS LIVER ENZYMES STILL ELEVATED wean off sedation CORRECT HYPERNATREMIA CHECK BNP AICD IMPLANTATION PT DEVELOPED PNEUMOTHORAX DELAYING EXTUBATION PNEUMOTHORAX IMPROVED LEUKOCYTOSIS AGAIN ELECTROLYTES BETTER NOW CXR CONSISTENT WITH CHF CORRECT K AND Mg CHANGE ABX VANCO AND AZTREONAM EPOGEN IRON DC ELIQUIS START LOVENOX WBC CONTINUES TO INCREASE NEEDS SURGICAL DEBRIDEMENT OF DECUB CXR WORSENING EFFUSION AND FLUID OVERLOAD START LASIX DRIP CXR CONSISTENT WITH MULTIFOCAL CONSOLIDATION EXCELLENT DIURESIS WITH LASIX DRIP MONITOR FLUID STATUS NEEDS DEBRIDEMENT OF DECUB WITH PERSISTENT LEUKOCYTOSIS CONSIDER BRONCHOSCOPY TO CLEAR CONSOLIDATION/ MUCUS S/P DEBRIDEMENT OF STAGE IV DECUB LEUKOCYTOSIS TRENDING DOWN CHECK CXR CHECK BNP CORRECT K CONSIDER BRONCHOSCOPY WOUND CX GRAM NEGATIVE ENTEROCOCCUS URINE PSEUDOMONAS AND STAPH CURRENTLY ON ZYVOX AND MEROPENEM WORSENING WBC SEVERE ANEMIA FOLLOWING DECUB DEBRIDEMENT TRANSFUSE 1 UNIT PRBC Dietary Evaluation Review Comments: 1. consider Renal Specific 70g protein restriction witn 2GNa, 3K, low Phos, if no diaylsis needed. 2. consider Renal Standard 2gn, 3K, low phosphate diet if Pt is on dialysis. 3. encourage and monitor po intake to meet 75% of his needs. Expected Outcomes/Goals: avoid uremic symptoms, gradual healed wounds. Plan discussed with: Spouse Critical Care Time(min): 35 ISSAC SHAH MD Jun 21, 2024 13:14
[2024-06-21] MEDS: MEROPENEM 1GM IVPB 50 ML IV SCH (13:37)
--- NOTE | 2024-06-21 13:47 | DVHPNRES ---
Progress Note Date Seen: Jun 21, 2024 Resident Creating Document: FARIDA HOLT RESIDENT Medical Necessity Reason Pt with a Central, PICC or Fol: Yes The following are medically ne: Olsen Catheter Reason for olsen catheter: Strict I&O Subjective Review of Systems Pt seen and examined at bedside He is currently sedated and intubated ROS could not be done as patient is sedated and intubated Objective vital signs Vital Sign Date Time Temp Pulse Resp B/P (MAP) Pulse Ox O2 Delivery O2 Flow Rate FiO2 06/21/24 12:56 99.0 70 16 106/37 99.0 06/21/24 11:40 40 06/21/24 11:40 100 Mechanical Ventilator+ Total Intake and Output 06/20/24 06/20/24 06/21/24 15:00 23:00 07:00 Intake Total 836.2435 ml 837.393 ml 1258.64 ml Output Total 1425 ml 800 ml Balance 836.2435 ml -587.607 ml 458.64 ml medications Current Medications Medications Dose Ordered Sig/Amy Route Start Time Stop Time Status Last Admin Dose Admin Potassium Chloride 100 ml @ 50 mls/hr Q2H IV 05/27/24 17:15 05/28/24 01:14 UNV Diagnostic Test (Pha) 1 strip Q6HR 05/30/24 18:00 06/21/24 11:42 1 STRIP Insulin Human Regular FOLLOW SLIDING SCALE Q6HR SC 05/30/24 18:00 06/11/24 18:33 2 UNITS Dextrose 50 ml UD IV 05/30/24 12:15 Acetaminophen 650 mg Q6HP PRN PO 05/31/24 19:30 06/10/24 14:37 650 MG Midazolam HCl 50 ml @ 1 mls/hr Q24H IV 06/08/24 20:15 06/21/24 03:04 5 MLS/HR Norepinephrine Bitartrate 32 mg/ Sodium Chloride 250 ml @ 0.938 mls/ hr Q24H IV 06/11/24 15:30 06/21/24 01:42 11.25 MLS/HR Potassium Chloride 100 ml @ 50 mls/hr Q2H IV 06/13/24 12:45 06/13/24 16:44 UNV Magnesium Sulfate/ Dextrose 100 ml @ 100 mls/hr Q1HR IV 06/13/24 13:00 06/13/24 14:59 UNV Cefepime HCl 50 ml @ 12.5 mls/hr Q8HR IV 06/13/24 14:00 UNV Enoxaparin Sodium 30 mg BID SC 06/14/24 22:00 06/20/24 21:52 30 MG Furosemide 100 mg/ Sodium Chloride 110 ml @ 4.4 mls/hr Q24H IV 06/14/24 14:15 06/21/24 03:05 4.4 MLS/HR Fentanyl Citrate 250 ml @ 2.5 mls/hr Q24H IV 06/15/24 16:00 06/21/24 08:20 22.5 MLS/HR Sodium Chloride 10 ml QSHIFT@10,22 IV 06/17/24 22:00 06/21/24 09:34 10 ML Pantoprazole Sodium 40 mg DAILY IV 06/18/24 10:00 06/21/24 09:33 40 MG Linezolid 300 ml @ 150 mls/hr Q12HR IV 06/18/24 11:00 06/21/24 09:33 150 MLS/HR Enteral Nutritional Formula 1,000 ml 30ML/HR GT 06/18/24 16:15 Amiodarone HCl 200 mg Q12HR PO 06/20/24 10:00 06/21/24 09:33 200 MG Dobutamine HCl/ Dextrose 250 ml @ 12.93 mls/ hr [id number] IV 06/20/24 13:00 06/21/24 05:50 12.93 MLS/HR Vasopressin 20 units/Sodium Chloride 100 ml @ 9 mls/hr Q11H7M IV 06/21/24 07:45 06/21/24 11:02 9 MLS/HR Meropenem 50 ml @ 17 mls/hr Q8HR IV 06/21/24 14:00 Examination Examination General Appearance: sedated and intubated Respiratory: Clear to auscultation, Normal air movement, chest tube present right upper and lower lobe, air leak present in lower chest tube Cardiovascular: Regular rate, Normal S1, Normal S2 Abdominal: Normal bowel sounds Extremities: No cyanosis, No edema, Normal pulses, No tenderness/swelling Skin: sacral ulcer unstageable Neuro: sedated and intubation laboratory and microbiology Laboratory Tests 06/21/24 04:40 Test 06/21/24 04:40 Range/Units Serum Glucose 128 H 74-106 mg/dL Microbiology Date/Time Source Procedure Growth Status 06/19/24 21:00 Other Wound Gram Stain - Final Resulted 06/19/24 21:00 Other Wound Anaerobic Culture - Preliminary Resulted 06/19/24 21:00 Other Wound Aerobic Culture - Preliminary Resulted 06/18/24 13:11 Blood Blood Culture - Preliminary NO GROWTH AFTER 72 HOURS OF INCUBATION. Resulted 06/17/24 08:50 Urine - Olsen [place] Urine Culture - Final Pseudomonas aeruginosa Yeast, not Radha albicans Complete 06/09/24 14:37 Bronchial Washings Gram Stain - Final Complete 06/09/24 14:37 Respiratory Culture - Final Staphylococcus aureus Pseudomonas aeruginosa Complete 06/09/24 14:30 Pleural Fluid Gram Stain - Final Complete 06/09/24 14:30 Pleural Fluid Body Fluid Culture - Final Complete Labs and/or images reviewed: Labs reviewed by me, Image(s) reviewed by me Problem List/Assessment/Plan Problem List/Assessment/Plan Assessment/Plan 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, likely chronic -seen on head CT Cardiology # shock, likely cardiogenic/septic -currently on IV norepinephrine -started on vasopressin # Acute exacerbation of HFrEF -EF <20%, last echo 03/12/24 Currently on Lasix drip started the pt on dobutamine drip, held #moderate TR -seen on echo 03/12/24 #Severe MR -seen on echo 03/12/24 #Mild aortic insufficiency with Dilated aortic root and mild av calcification -seen on echo 03/12/24 #Mod Pulmonary hypertension -seen on echo 03/12/24 #Atrial flutter, currently sinus rhythm -had sync cardioversion on 05/27/24 -currently on amiodarone drip, will switch to oral amiodarone #Non-sustained Vtach -currently on amiodarone drip, will switch to oral amiodarone #Ectatic ascending aorta. -seen on imaging Respiratory #Acute hypoxic resp failure due to CHF exacerbation/pneumonia/pulmonary embolism -[facility] vent, intubated on 05/26/24 -reintubation on 06/12/24 due to ETT leak # Acute pulmonary embolism with Right heart strain -seen on CT angio -pt was started on heparin drip, later was switched to eliquis -currently on prophylactic Lovenox, will switch to therapeutic dose after surgery, based on risk/benefit # Large right pleural effusion -s/p multiple thoracentesis -pt has currently [address] 06/16/24 shows Moderate right pleural fluid collection with near complete collapse of the right lower lobe chest tube in place within the collection. #Right lower lobe atelectasis -seen on CT #Moderate right anterior pneumothorax --pt has currently 2 chest tubes #Multiple mucus plugs -pt had multiple bronchoscopies #Pneumonia, community acquired, gram +/- -sputum culture reveals Staph aureus and Pseudomonas -IV antibiotics based on culture sensitivity # Small left anterior pneumothorax -seen on CT Monitor # Moderate left pleural fluid collection with complete collapse of the left lower lobe -seen on CT -IV Lasix # left lower lobe atelectasis Seen on CT # pneumomediastinum -Small amount of pneumomediastinum, may be tracking from the bilateral pneumothoraces Nephrology # Hypernatremia -corrected # Hyperkalemia -corrected # hypokalemia Corrected # RADHA likely due to vasomotor nephropathy Monitor BMP # respiratory acidosis with metabolic alkalosis, resolved Monitor ABG # hypophosphatemia Corrected Hematology/oncology # anemia, normocytic, severe 1 unit of PRBC transfusion Monitor # coagulopathy likely due to sepsis Monitor GI # Transaminitis likely due to sepsis -monitor # Moderate colonic diverticulosis -seen on imaging # Cholelithiasis -seen on imaging # complicated UTI -IV antibiotics based on culture -urine culture reveals Pseudomonas and Enterococcus Infectious disease #Sepsis with septic shock -IV antibiotics -currently on norepi drip #Sacral Wound, Unstageable -likely infected -IV antibiotics -surgery consulted for Wound debridement -had wound debridement today Lines PICC line 06/17/24 Left subclavian CVC line 06/05/24, removed 06/17/24 Right femoral A-line 06/03/24 Olsen catheter 05/21/24 Drips Norepi fentanyl Versed Lasix drip TPN, discontinued Amiodarone, discontinued and switched to amiodarone tablet Dobutamine DVT prophylaxis Lovenox PPD prophylaxis IV Protonix Nutrition Jevity Bowel regimen Colace Code status discussed with the fiance, for >21 min : FULL CODE Critical care time excluding procedures : 65 minutes Case discussion with Dr Diaz Plan discussed with: Other My Orders My Orders Orders - FARIDA HOLT RESIDENT Procedure Category Date Status Time Chest Portable XY 06/21/24 Resulted 04:00 Abg W/ Co-Ox RT 06/21/24 Logged 04:00 Sodium Chl 0.9% PHA 06/21/24 In Process (So... W/Vasopressin 07:45 Meropenem 1gm Ivpb PHA 06/21/24 In Process (Merrem 1gm/ Ns) 14:00 Dietary Evaluation Review Comments: 1. consider Renal Specific 70g protein restriction witn 2GNa, 3K, low Phos, if no diaylsis needed. 2. consider Renal Standard 2gn, 3K, low phosphate diet if Pt is on dialysis. 3. encourage and monitor po intake to meet 75% of his needs. Expected Outcomes/Goals: avoid uremic symptoms, gradual healed wounds. Date of Service: Jun 21, 2024 Billing Provider: FARHAD DIAZ MD Common Visit Codes: [id number] CARE 30-74 MIN FARIDA HOLT RESIDENT Jun 21, 2024 13:47 FARHAD DIAZ MD Jun 24, 2024 09:04
[2024-06-21 16:52] LABS: % Iron Saturation 28.4 % (20-55)
[2024-06-21 17:13] LABS: Ferritin 1561.9 ng/mL (22-322)
[2024-06-22] VITALS (107 sets, daily range): BP systolic 82–151; BP diastolic 20–50; PULSE 62–68; RESP 12–23; TEMP 97.6–99.2; O2SAT 94–100
[2024-06-22] MEDS: MEROPENEM 1GM IVPB 50 ML IV SCH (00:03)
[2024-06-22 05:44] LABS: Basophils # (auto) 0 10 ^3/uL (0-0.2); Basophils % (auto) 0.2 % (0.0-2.0); Eosinophils # (auto) 0.2 10 ^3/uL (0-0.8); Eosinophils % (auto) 0.8 % (0.0-7.0); Hematocrit 22.3 % (41.0-53.0); Hemoglobin 7.3 g/dL (13.5-17.5); Lymphocytes # (auto) 1.3 10 ^3/uL (0.4-5.4); Lymphocytes % (auto) 5.5 % (10.0-50.0); Mean Corpuscular Hemoglobin 27.8 pg (28.0-32.0); Mean Corpuscular Hgb Conc. 32.9 g/dL (32.0-36.0); Mean Corpuscular Volume 84.6 fL (80.0-100.0); Neutrophils # (auto) 21.6 10 ^3/uL (1.6-8.6); Neutrophils % (auto) 89.5 % (37.0-80.0); Platelet Count (auto) 276 10^3/uL (140-450); Red Blood Cells 2.63 10^6/uL (4.5-5.90); Red Cell Distribution Width 17.7 % (11.8-14.3); White Blood Cell 24.1 10^3/uL (4.4-10.8)
[2024-06-22 05:54] LABS: Anion Gap 4 (5-15); Chloride 100 mmol/L (98-107); Potassium 3.6 mmol/L (3.5-5.1); Sodium 139 mmol/L (136-145)
[2024-06-22 06:00] LABS: BUN/Creatinine Ratio 38.7 (10.0-20.0); Blood Urea Nitrogen 24 mg/dL (9-23); Calcium 8.4 mg/dL (8.7-10.4); Carbon Dioxide 35 mmol/L (20-31); Glucose 118 mg/dL (74-106)
[2024-06-22 08:15] LABS: Base Excess 7.7 mmol/L (-2.0-3.0)
--- NOTE | 2024-06-22 13:45 | DVH ---
CHEST RADIOGRAPH Indication: Intubated. Technique: Single frontal view of the chest was obtained COMPARISON: XY CHEST PORTABLE on DOS: 06/21/24, XY CHEST PORTABLE on DOS: 06/20/24, XY CHEST PORTABLE o n DOS: 06/19/24, XY CHEST PORTABLE on DOS: 06/18/24, XY CHEST PORTABLE on DOS: 06/18/24 FINDINGS: Lines and Tubes: Stable tubes and lines. Satisfactory position. Lungs: Clear Pleura: Large left pleural effusion not improved since the prior study. No left-sided pneumothorax identified. Cardiomediastinal contours: Effacement left hemidiaphragm and left heart border. Bones: Unremarkable IMPRESSION: 1. No improvement when compared to the prior study. 2. Large left pleural effusion. 3. Tubes and lines stable and not significantly changed from the prior exam.
--- NOTE | 2024-06-22 15:33 | DVHPN2 ---
Subjective 06/22: low diastolic. patient is on levophed and vasopressin. still low BP. will trial hold on lasix and 1x 250cc bolus NS and no further diuresis. keep euvolemic. appears patient is unlikely to be able to wean off vasopressors. Reviewed: H&P Changes from previous H/P or p: No Changes General: Per HPI Objective Vitals Vital Signs Date Time Temp Pulse Resp B/P (MAP) Pulse Ox O2 Delivery O2 Flow Rate FiO2 06/22/24 14:45 66 17 82/39 (53) 100 99/35 (56) 06/22/24 14:28 30 06/22/24 14:00 Mechanical Ventilator+ 06/22/24 12:00 97.8 97.8 Intake/Output Intake and Output 06/22/24 07:00 Intake Total 2643.208 ml Output Total 3100 ml Balance -456.792 ml Intake Oral 50 ml IV Total 1833.208 ml Tube Feeding 700 ml Other 60 ml Output Urine Total 3100 ml Chest Tube Drainage Total 0 ml Exam General Appearance: weak appearing Respiratory: Clear to auscultation, Normal air movement, chest tube present right upper and lower lobe, air leak present in lower chest tube Cardiovascular: Regular rate, Normal S1, Normal S2 Abdominal: Normal bowel sounds Extremities: No cyanosis, No edema, Normal pulses, No tenderness/swelling Skin: sacral ulcer unstageable Neuro: sedated and intubation Medications Current Medications Medications Dose Ordered Sig/Amy Route Start Time Stop Time Status Last Admin Dose Admin Potassium Chloride 100 ml @ 50 mls/hr Q2H IV 05/27/24 17:15 05/28/24 01:14 UNV Diagnostic Test (Pha) 1 strip Q6HR 05/30/24 18:00 06/22/24 12:32 1 STRIP Insulin Human Regular FOLLOW SLIDING SCALE Q6HR SC 05/30/24 18:00 06/11/24 18:33 2 UNITS Dextrose 50 ml UD IV 05/30/24 12:15 Acetaminophen 650 mg Q6HP PRN PO 05/31/24 19:30 06/10/24 14:37 650 MG Midazolam HCl 50 ml @ 1 mls/hr Q24H IV 06/08/24 20:15 06/22/24 09:49 5 MLS/HR Norepinephrine Bitartrate 32 mg/ Sodium Chloride 250 ml @ 0.938 mls/ hr Q24H IV 06/11/24 15:30 06/22/24 13:12 2.813 MLS/HR Potassium Chloride 100 ml @ 50 mls/hr Q2H IV 06/13/24 12:45 06/13/24 16:44 UNV Magnesium Sulfate/ Dextrose 100 ml @ 100 mls/hr Q1HR IV 06/13/24 13:00 06/13/24 14:59 UNV Cefepime HCl 50 ml @ 12.5 mls/hr Q8HR IV 06/13/24 14:00 UNV Enoxaparin Sodium 30 mg BID SC 06/14/24 22:00 06/21/24 22:15 30 MG Furosemide 100 mg/ Sodium Chloride 110 ml @ 4.4 mls/hr Q24H IV 06/14/24 14:15 06/21/24 20:07 4.4 MLS/HR Fentanyl Citrate 250 ml @ 2.5 mls/hr Q24H IV 06/15/24 16:00 06/22/24 07:26 22.5 MLS/HR Sodium Chloride 10 ml QSHIFT@10,22 IV 06/17/24 22:00 06/22/24 10:14 10 ML Pantoprazole Sodium 40 mg DAILY IV 06/18/24 10:00 06/22/24 10:14 40 MG Linezolid 300 ml @ 150 mls/hr Q12HR IV 06/18/24 11:00 06/22/24 10:55 150 MLS/HR Enteral Nutritional Formula 1,000 ml 30ML/HR GT 06/18/24 16:15 Amiodarone HCl 200 mg Q12HR PO 06/20/24 10:00 06/22/24 10:14 200 MG Dobutamine HCl/ Dextrose 250 ml @ 12.93 mls/ hr [id number] IV 06/20/24 13:00 Hold 06/21/24 05:50 12.93 MLS/HR Vasopressin 20 units/Sodium Chloride 100 ml @ 9 mls/hr Q11H7M IV 06/21/24 07:45 06/22/24 05:13 9 MLS/HR Meropenem 50 ml @ 17 mls/hr Q8HR@0000,0800,1600 IV 06/22/24 00:00 06/22/24 08:26 17 MLS/HR Laboratory Results Laboratory Tests 2/1/25 05:05 Chemistry Test 06/22/24 05:05 Calcium Level 8.4 mg/dL (8.7-10.4) L Magnesium Level 2.0 mg/dL (1.6-2.6) Urinalysis Test 05/19/24 10:08 Urine Color Yellow (Yellow) Urine Clarity Turbid (Clear) H Urine pH 5.0 (5.0-9.0) Urine Specific [place] 1.012 (1.001-1.035) Urine Protein 1+ (Negative) H Urine Ketones Negative (Negative) Urine Blood Negative /uL (Negative) Urine Nitrite Negative (Negative) Urine Bilirubin Negative (Negative) Urine Urobilinogen 3 mg/dL (Negative) H Urine Leukocyte Esterase Negative /uL (Negative) Urine RBC 1 /hpf (0 - 3) Urine WBC 3 /hpf (0 - 3) Urine Squamous Epithelial Cells Few /hpf (<5) Urine Bacteria None seen /hpf (None Seen) Urine Hyaline Casts Many /lpf (0 - 2) Urine Mucus Few (None Seen) Urine Glucose Normal mg/dL (Normal) Blood Gas Results Test 06/22/24 08:07 Arterial Blood pH 7.441 (7.350-7.450) FiO2 % 30.0 Microbiology Microbiology Date/Time Source Procedure Growth Status 06/19/24 21:00 Other Wound Gram Stain - Final Resulted 06/19/24 21:00 Other Wound Anaerobic Culture - Preliminary Resulted 06/19/24 21:00 Aerobic Culture - Final Enterococcus casseliflavus Pseudomonas aeruginosa Resulted 06/18/24 13:11 Blood Blood Culture - Preliminary NO GROWTH AFTER 72 HOURS OF INCUBATION. Resulted 06/17/24 08:50 Urine - [place] Urine Culture - Final Pseudomonas aeruginosa Yeast, not Radha albicans Complete 06/09/24 14:37 Bronchial Washings Gram Stain - Final Complete 06/09/24 14:37 Respiratory Culture - Final Staphylococcus aureus Pseudomonas aeruginosa Complete 06/09/24 14:30 Pleural Fluid Gram Stain - Final Complete 06/09/24 14:30 Pleural Fluid Body Fluid Culture - Final Complete Labs and/or images reviewed: Labs reviewed by me, Image(s) reviewed by me Assessment/Plan Assessment/Plan 06/22: low diastolic. patient is on levophed and vasopressin. still low BP. will trial hold on lasix and 1x 250cc bolus NS and no further diuresis. keep euvolemic. appears patient is unlikely to be able to wean off vasopressors. 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, likely chronic -seen on head CT Cardiology # shock, likely cardiogenic/septic -currently on IV norepinephrine -started on vasopressin # Acute exacerbation of HFrEF -EF <20%, last echo 03/12/24 Currently on Lasix drip started the pt on dobutamine drip, held #moderate TR -seen on echo 03/12/24 #Severe MR -seen on echo 03/12/24 #Mild aortic insufficiency with Dilated aortic root and mild av calcification -seen on echo 03/12/24 #Mod Pulmonary hypertension -seen on echo 03/12/24 #Atrial flutter, currently sinus rhythm -had sync cardioversion on 05/27/24 -currently on amiodarone drip, will switch to oral amiodarone #Non-sustained Vtach -currently on amiodarone drip, will switch to oral amiodarone #Ectatic ascending aorta. -seen on imaging Respiratory #Acute hypoxic resp failure due to CHF exacerbation/pneumonia/pulmonary embolism -on [facility] vent, intubated on 05/26/24 -reintubation on 06/12/24 due to ETT leak # Acute pulmonary embolism with Right heart strain -seen on CT angio -pt was started on heparin drip, later was switched to eliquis -currently on prophylactic Lovenox, will switch to therapeutic dose after surgery, based on risk/benefit # Large right pleural effusion -s/p multiple thoracentesis -pt has currently [address] 06/16/24 shows Moderate right pleural fluid collection with near complete collapse of the right lower lobe chest tube in place within the collection. #Right lower lobe atelectasis -seen on CT #Moderate right anterior pneumothorax --pt has currently 2 chest tubes #Multiple mucus plugs -pt had multiple bronchoscopies #Pneumonia, community acquired, gram +/- -sputum culture reveals Staph aureus and Pseudomonas -IV antibiotics based on culture sensitivity # Small left anterior pneumothorax -seen on CT Monitor # Moderate left pleural fluid collection with complete collapse of the left lower lobe -seen on CT -IV Lasix # left lower lobe atelectasis Seen on CT # pneumomediastinum -Small amount of pneumomediastinum, may be tracking from the bilateral pneumothoraces Nephrology # Hypernatremia -corrected # Hyperkalemia -corrected # hypokalemia Corrected # RADHA likely due to vasomotor nephropathy Monitor BMP # respiratory acidosis with metabolic alkalosis, resolved Monitor ABG # hypophosphatemia Corrected Hematology/oncology # anemia, normocytic, severe 1 unit of PRBC transfusion Monitor # coagulopathy likely due to sepsis Monitor GI # Transaminitis likely due to sepsis -monitor # Moderate colonic diverticulosis -seen on imaging # Cholelithiasis -seen on imaging # complicated UTI -IV antibiotics based on culture -urine culture reveals Pseudomonas and Enterococcus Infectious disease #Sepsis with septic shock -IV antibiotics -currently on norepi drip #Sacral Wound, Unstageable -likely infected -IV antibiotics -surgery consulted for Wound debridement -had wound debridement today Lines PICC line 06/17/24 Left subclavian CVC line 06/05/24, removed 06/17/24 Right femoral A-line 06/03/24 Burk catheter 05/21/24 Drips Norepi fentanyl Versed Lasix drip TPN, discontinued Amiodarone, discontinued and switched to amiodarone tablet Dobutamine DVT prophylaxis Lovenox PPD prophylaxis IV Protonix Nutrition Jevity Bowel regimen Colace Code status discussed with the fiance, for >21 min : FULL CODE Critical care time excluding procedures : 65 minutes Plan discussed with: Other My Orders Orders - KIM BONDS MD Procedure Category Date Status Time Chest Xray 1 View XY 06/22/24 Resulted 12:36 Date of Service: Jun 22, 2024 Billing Provider: KIM BONDS MD Common Visit Codes: [id number] CARE-EACH +30MIN KIM BONDS MD Jun 22, 2024 15:33
[2024-06-22] MEDS: SODIUM CHLORIDE 0.9% 250 ML IV ONE (15:58)
--- NOTE | 2024-06-22 21:50 | DVHPN2 ---
Progress Note - Dictate Date Seen: Jun 22, 2024 Medical Necessity Reason Pt with a Central, PICC or Fol: Yes The following are medically ne: Olsen Catheter Reason for olsen catheter: Strict I&O Subjective Patient seen and examined at bedside. Sedated, intubated on mechanical ventilator. Overnight events reviewed. vital signs Vital Sign Date Time Temp Pulse Resp B/P (MAP) Pulse Ox O2 Delivery O2 Flow Rate FiO2 06/22/24 20:45 65 22 96/38 (57) 98 112/37 (62) 06/22/24 20:17 30 06/22/24 20:00 97.7 97.7 06/22/24 20:00 Mechanical Ventilator+ Total Intake and Output 06/21/24 06/21/24 06/22/24 15:00 23:00 07:00 Intake Total 785.202 ml 771.704 ml 1086.302 ml Output Total 1600 ml 1500 ml Balance 785.202 ml -828.296 ml -413.698 ml medications Current Medications Medications Dose Ordered Sig/Amy Route Start Time Stop Time Status Last Admin Dose Admin Potassium Chloride 100 ml @ 50 mls/hr Q2H IV 05/27/24 17:15 05/28/24 01:14 UNV Diagnostic Test (Pha) 1 strip Q6HR 05/30/24 18:00 06/22/24 17:09 1 STRIP Insulin Human Regular FOLLOW SLIDING SCALE Q6HR SC 05/30/24 18:00 06/11/24 18:33 2 UNITS Dextrose 50 ml UD IV 05/30/24 12:15 Acetaminophen 650 mg Q6HP PRN PO 05/31/24 19:30 06/10/24 14:37 650 MG Midazolam HCl 50 ml @ 1 mls/hr Q24H IV 06/08/24 20:15 06/22/24 20:07 5 MLS/HR Norepinephrine Bitartrate 32 mg/ Sodium Chloride 250 ml @ 0.938 mls/ hr Q24H IV 06/11/24 15:30 06/22/24 13:12 2.813 MLS/HR Potassium Chloride 100 ml @ 50 mls/hr Q2H IV 06/13/24 12:45 06/13/24 16:44 UNV Magnesium Sulfate/ Dextrose 100 ml @ 100 mls/hr Q1HR IV 06/13/24 13:00 06/13/24 14:59 UNV Cefepime HCl 50 ml @ 12.5 mls/hr Q8HR IV 06/13/24 14:00 UNV Enoxaparin Sodium 30 mg BID SC 06/14/24 22:00 06/21/24 22:15 30 MG Furosemide 100 mg/ Sodium Chloride 110 ml @ 4.4 mls/hr Q24H IV 06/14/24 14:15 06/21/24 20:07 4.4 MLS/HR Fentanyl Citrate 250 ml @ 2.5 mls/hr Q24H IV 06/15/24 16:00 06/22/24 18:01 22.5 MLS/HR Sodium Chloride 10 ml QSHIFT@10,22 IV 06/17/24 22:00 06/22/24 20:07 10 ML Pantoprazole Sodium 40 mg DAILY IV 06/18/24 10:00 06/22/24 10:14 40 MG Linezolid 300 ml @ 150 mls/hr Q12HR IV 06/18/24 11:00 06/22/24 10:55 150 MLS/HR Enteral Nutritional Formula 1,000 ml 30ML/HR GT 06/18/24 16:15 Amiodarone HCl 200 mg Q12HR PO 06/20/24 10:00 06/22/24 10:14 200 MG Dobutamine HCl/ Dextrose 250 ml @ 12.93 mls/ hr [id number] IV 06/20/24 13:00 Hold 06/21/24 05:50 12.93 MLS/HR Vasopressin 20 units/Sodium Chloride 100 ml @ 9 mls/hr Q11H7M IV 06/21/24 07:45 06/22/24 17:10 9 MLS/HR Meropenem 50 ml @ 17 mls/hr Q8HR@0000,0800,1600 IV 06/22/24 00:00 06/22/24 15:57 17 MLS/HR objective Gen.: Patient lying in bed in medical ICU. Sedated, intubated on mechanical ventilator. Head: Normocephalic, atraumatic. Eyes: PERRLA. Ears: Normal external anatomy. Throat: Endotracheal tube and orogastric tube in place. Neck: Supple, trachea midline. Chest: Transmitted breath sounds bilaterally. Decreased air entry bilaterally. No wheezing. Bibasilar crackles. Cardio vascular: Positive S1, positive S2. Regular rate and rhythm. Abdomen: Positive bowel sounds in all 4 quadrants. Soft, nontender, nondistended. : Olsen in place. Normal external genitalia. Rectal: Deferred Skin: Warm, dry. Intact. Extremities: 2+ radial pulses bilaterally. No lower extremity edema. Neuro: Sedated laboratory and microbiology Laboratory Tests 06/22/24 05:05 Test 06/22/24 05:05 Range/Units Serum Glucose 118 H 74-106 mg/dL Assessment/Plan Impression: Acute hypoxic respiratory failure Mechanical ventilator Pleural effusion, right Atelectasis CHF exacerbation Pulmonary embolism Obesity with a BMI of 30.1 Pneumonia, likely gram negative Sacral wound Events: Remains on vent support On assist control with respiratory rate of 16, tidal volume 500, PEEP of 5, FiO2 at 30%. CXR reviewed, demonstrates Large left pleural effusion. No pneumothorax. Devices in place. Monitor chest tube output Sedated on Versed On Fentanyl for analgesia On pressors for hemodynamic support. On Levophed 6 mcg/min, vasopressin 0.03 units/min Titrate to keep MAP above 65 mmHg/SBP above 90 mmHg Improved pressor requirements Stop Lasix drip. IV fluid bolus 250 mL. Amiodarone drip Continue antibiotics TPN for nutritional support S/p 1 unit PRBC Monitor hemoglobin Monitor renal function Monitor electrolytes. Supplement as necessary. Wound care Surgery recs appreciated. SBT/BAM Poor prognosis Recommend Trach/PEG for liberation from vent. 06/09/24 - S/p bronchoscopy - removed copious secretions from L1-L10 06/09/24 - S/p right thoracentesis - 550 ml joycelyn fluid removed from right pleural space. 06/05/24 - S/p left thoracentesis on 950 mL's of joycelyn colored fluid removed from left pleural space. 06/03/24 - S/p bronchoscopy - cleared mucous plugging from L6-L10, L1-L5 and R1- R3 06/03/24 - S/p right thoracentesis - 1700 mL of serosanguineous fluid removed from R pleural space. S/p bronchoscopy w/ RML BAL on 05/28/24 - Cleared bloody secretions from L1-L10 and R1-R10 S/p cardioversion on 05/27/24 Labs and imaging reviewed. Rest of plan as noted below. Plan: s/p intubation on mechanical ventilator Status post right thoracentesis with removal of 2200 mL ABG reviewed. Alkalemia due to contraction alkalosis. Hypoxemia with a PO2 of 42 mmHg. Patient was emergently intubated and placed on mechanical ventilation. Currently on assist control with respiratory rate of 16, tidal volume 500, PEEP of 5, FiO2 at 30%. Titrate FIO2 to keep O2 saturation above 92%. VAP bundle Daily ABG and CXR while intubated. Sedated On pressors for hemodynamic support. Titrate to keep MAP above 65 mmHg/SBP above 90 mmHg. Continue antibiotics F/u cultures. Sputum cultures grew Staph aureus and Pseudomonas aeruginosa. Monitor renal function due to Acute kidney injury. Monitor electrolytes. Supplement as necessary. Monitor ins and outs Maintain euvolemia Cardiology recommendations appreciated. Nutritional support. Accu-Cheks, ISS. GI/DVT prophylaxis. Condition: Critical Prognosis: Poor given multiple comorbidities. Rest of plan per hospitalist and other consultants. A total of 35 minutes of critical care time was spent reviewing the patient record, examining the patient, making a diagnostic and therapeutic plan, discussing this plan with the medical personnel, following up on diagnostic studies and following the patient for clinical stability excluding any and all procedures. At least 50% of this time was spent in direct, bpez-ie-balh contact. Thank you Dr. Conn for allowing me to participate in this patient's care. Further recommendations will depend on patient's clinical course. Please do not hesitate to contact me if you have any questions or concerns. This medical document was created using an electronic medical record system with [employer] dictation system. Although this document has been carefully reviewed, there may still be some phonetic and typographical errors. These areas are purely typographical due to imperfections of the software programs, and do not reflect any compromise in the patient's medical care. Dietary Evaluation Review Comments: 1. consider Renal Specific 70g protein restriction witn 2GNa, 3K, low Phos, if no diaylsis needed. 2. consider Renal Standard 2gn, 3K, low phosphate diet if Pt is on dialysis. 3. encourage and monitor po intake to meet 75% of his needs. Expected Outcomes/Goals: avoid uremic symptoms, gradual healed wounds. Plan discussed with: Other (CALEB Byrd) Critical Care Time(min): 35 BOGDAN MANN MD Jun 22, 2024 21:50
[2024-06-23] VITALS (108 sets, daily range): BP systolic 74–165; BP diastolic 15–67; PULSE 61–89; RESP 5–28; TEMP 97.8–99.3; O2SAT 86–100
[2024-06-23 05:56] LABS: Anion Gap 6 (5-15); BUN/Creatinine Ratio 44.8 (10.0-20.0); Chloride 100 mmol/L (98-107); Glucose 92 mg/dL (74-106); Potassium 3.5 mmol/L (3.5-5.1); Sodium 140 mmol/L (136-145)
[2024-06-23 05:57] LABS: Basophils # (auto) 0.2 10 ^3/uL (0-0.2); Eosinophils # (auto) 0.2 10 ^3/uL (0-0.8); Hemoglobin 7.3 g/dL (13.5-17.5); Lymphocytes # (auto) 1.2 10 ^3/uL (0.4-5.4)
[2024-06-23 06:00] LABS: Basophils % (auto) 1.4 % (0.0-2.0); Hematocrit 22.7 % (41.0-53.0); Lymphocytes % (auto) 6.8 % (10.0-50.0); Mean Corpuscular Hemoglobin 27.6 pg (28.0-32.0); Mean Corpuscular Hgb Conc. 32.2 g/dL (32.0-36.0); Mean Corpuscular Volume 85.5 fL (80.0-100.0); Monocytes # (auto) 0.8 10 ^3/uL (0-1.3); Monocytes % (auto) 4.4 % (0.0-12.0); Neutrophils # (auto) 15.2 10 ^3/uL (1.6-8.6); Neutrophils % (auto) 86.4 % (37.0-80.0); Nucleated Red Blood Cells % 0.6 %; Platelet Count (auto) 267 10^3/uL (140-450); Red Blood Cells 2.65 10^6/uL (4.5-5.90); Red Cell Distribution Width 18.5 % (11.8-14.3); White Blood Cell 17.6 10^3/uL (4.4-10.8)
[2024-06-23 06:19] LABS: Alanine Aminotransferase 75 U/L (7-40); Alkaline Phosphatase 425 U/L (46-116); Aspartate Aminotransferase 52 U/L (13-40); Bilirubin, Total 2.7 mg/dL (0.2-1.0); Blood Urea Nitrogen 26 mg/dL (9-23); Calcium 8.1 mg/dL (8.7-10.4); Carbon Dioxide 34 mmol/L (20-31); Total Protein 5.4 g/dL (5.7-8.2)
--- NOTE | 2024-06-23 06:42 | DVH ---
EXAM: XY CHEST PORTABLE HISTORY: INTUBATED COMPARISON: XY CHEST XRAY 1 VIEW on DOS: 06/22/24, XY CHEST PORTABLE on DOS: 06/21/24, XY CHEST PORTABLE on DOS: 06/20/24, XY CHEST PORTABLE on DOS: 06/19/24, XY CHEST PORTABLE on DOS: 06/18/24 TECHNIQUE: Portable AP view of the chest was performed. FINDINGS: Endotracheal tube is re-identified with its tip 5.2 cm above the fredo. OG tube right upper extremit y PICC line, and multiple right thoracostomy tubes are re-identified. Small right apical pneumothorax is re-identified. There is mildly increased right basilar infiltrate. There are ascites throughout the left lung with only a small portion of the left upper lobe remaining aerated. Cardiac margins ar e obscured. IMPRESSION: 1. Mechanical ventilation with tubes and lines as above. 2. Small right apical pneumothorax persists, with multiple right thoracostomy tubes present. 3. Mildly increased right basilar infiltrate. 4. Ossification of the majority of the left hemithorax due to infiltrate and/or effusion.
[2024-06-23 07:36] LABS: Base Excess 7.5 mmol/L (-2.0-3.0)
[2024-06-23] MEDS ORDERED: FUROSEMIDE 20 MG/2 ML VIAL IV SCH (14:00)
[2024-06-23] MEDS: FUROSEMIDE INJECTION 100 MG in SODIUM CHL 0.9% 100 ML IV SCH (15:26)
--- NOTE | 2024-06-23 17:41 | DVHPN2 ---
Subjective Update 06/23 06/22: low diastolic. patient is on levophed and vasopressin. still low BP. will trial hold on lasix and 1x 250cc bolus NS and no further diuresis. keep euvolemic. appears patient is unlikely to be able to wean off vasopressors. 06/23. no big changes today. Palm managing2 chest tubes,1 chest tube with more output, 2nd tube with minimal. We will do SAT trials today. Yesterday diastolic BP was low and Lasix was held and some slow fluids were given. Given fluids did not help D BP. vasopressors cont. We want to keep patient euvolemic and Lasix drip we will restarted very low rate 0.5 milligrams/hour Reviewed: H&P Changes from previous H/P or p: No Changes General: Per HPI Objective Vitals Vital Signs Date Time Temp Pulse Resp B/P (MAP) Pulse Ox O2 Delivery O2 Flow Rate FiO2 06/23/24 16:10 72 23 111/36 (61) 97 30 06/23/24 08:00 Mechanical Ventilator+ 06/23/24 04:00 97.8 97.8 Intake/Output Intake and Output 06/23/24 07:00 Intake Total 2209.797 ml Output Total 1590 ml Balance 619.797 ml Intake Oral 0 ml IV Total 1734.797 ml Tube Feeding 415 ml Other 60 ml Output Urine Total 1500 ml Chest Tube Drainage Total 40 ml Drainage Total 50 ml Exam General Appearance: weak appearing Respiratory: Clear to auscultation, Normal air movement, chest tube present right upper and lower lobe, air leak present in lower chest tube Cardiovascular: Regular rate, Normal S1, Normal S2 Abdominal: Normal bowel sounds Extremities: No cyanosis, No edema, Normal pulses, No tenderness/swelling Skin: sacral ulcer unstageable Neuro: sedated and intubation Medications Current Medications Medications Dose Ordered Sig/Amy Route Start Time Stop Time Status Last Admin Dose Admin Potassium Chloride 100 ml @ 50 mls/hr Q2H IV 05/27/24 17:15 05/28/24 01:14 UNV Diagnostic Test (Pha) 1 strip Q6HR 05/30/24 18:00 06/23/24 11:06 1 STRIP Insulin Human Regular FOLLOW SLIDING SCALE Q6HR SC 05/30/24 18:00 06/11/24 18:33 2 UNITS Dextrose 50 ml UD IV 05/30/24 12:15 Acetaminophen 650 mg Q6HP PRN PO 05/31/24 19:30 06/10/24 14:37 650 MG Midazolam HCl 50 ml @ 1 mls/hr Q24H IV 06/08/24 20:15 06/23/24 11:04 5 MLS/HR Norepinephrine Bitartrate 32 mg/ Sodium Chloride 250 ml @ 0.938 mls/ hr Q24H IV 06/11/24 15:30 06/22/24 13:12 2.813 MLS/HR Potassium Chloride 100 ml @ 50 mls/hr Q2H IV 06/13/24 12:45 06/13/24 16:44 UNV Magnesium Sulfate/ Dextrose 100 ml @ 100 mls/hr Q1HR IV 06/13/24 13:00 06/13/24 14:59 UNV Cefepime HCl 50 ml @ 12.5 mls/hr Q8HR IV 06/13/24 14:00 UNV Enoxaparin Sodium 30 mg BID SC 06/14/24 22:00 06/22/24 22:27 30 MG Fentanyl Citrate 250 ml @ 2.5 mls/hr Q24H IV 06/15/24 16:00 06/23/24 13:23 10 MLS/HR Sodium Chloride 10 ml QSHIFT@10,22 IV 06/17/24 22:00 06/23/24 09:40 10 ML Pantoprazole Sodium 40 mg DAILY IV 06/18/24 10:00 06/23/24 09:40 40 MG Linezolid 300 ml @ 150 mls/hr Q12HR IV 06/18/24 11:00 06/23/24 10:42 150 MLS/HR Enteral Nutritional Formula 1,000 ml 30ML/HR GT 06/18/24 16:15 Amiodarone HCl 200 mg Q12HR PO 06/20/24 10:00 06/23/24 09:41 200 MG Dobutamine HCl/ Dextrose 250 ml @ 12.93 mls/ hr [id number] IV 06/20/24 13:00 Hold 06/21/24 05:50 12.93 MLS/HR Vasopressin 20 units/Sodium Chloride 100 ml @ 9 mls/hr Q11H7M IV 06/21/24 07:45 06/23/24 11:05 9 MLS/HR Meropenem 50 ml @ 17 mls/hr Q8HR@0000,0800,1600 IV 06/22/24 00:00 06/23/24 15:55 17 MLS/HR Furosemide 100 mg/ Sodium Chloride 110 ml @ 4.4 mls/hr Q24H IV 06/23/24 14:30 06/23/24 15:26 4.4 MLS/HR Laboratory Results Laboratory Tests 06/23/24 05:18 Chemistry Test 06/23/24 05:18 Albumin 2.0 g/dL (3.2-4.8) L Calcium Level 8.1 mg/dL (8.7-10.4) L Total Protein 5.4 g/dL (5.7-8.2) L LFT Test 06/23/24 05:18 Alanine Aminotransferase (ALT) 75 U/L (7-40) H Alkaline Phosphatase 425 U/L (46-116) H Aspartate Amino Transferase (AST) 52 U/L (13-40) H Total Bilirubin 2.7 mg/dL (0.2-1.0) H Urinalysis Test 05/19/24 10:08 Urine Color Yellow (Yellow) Urine Clarity Turbid (Clear) H Urine pH 5.0 (5.0-9.0) Urine Specific [place] 1.012 (1.001-1.035) Urine Protein 1+ (Negative) H Urine Ketones Negative (Negative) Urine Blood Negative /uL (Negative) Urine Nitrite Negative (Negative) Urine Bilirubin Negative (Negative) Urine Urobilinogen 3 mg/dL (Negative) H Urine Leukocyte Esterase Negative /uL (Negative) Urine RBC 1 /hpf (0 - 3) Urine WBC 3 /hpf (0 - 3) Urine Squamous Epithelial Cells Few /hpf (<5) Urine Bacteria None seen /hpf (None Seen) Urine Hyaline Casts Many /lpf (0 - 2) Urine Mucus Few (None Seen) Urine Glucose Normal mg/dL (Normal) Blood Gas Results Test 06/23/24 07:17 Arterial Blood pH 7.481 (7.350-7.450) FiO2 % 30.0 Microbiology Microbiology Date/Time Source Procedure Growth Status 06/19/24 21:00 Other Wound Gram Stain - Final Complete 06/19/24 21:00 Other Wound Anaerobic Culture - Final Complete 06/19/24 21:00 Aerobic Culture - Final Enterococcus casseliflavus Pseudomonas aeruginosa Complete 06/18/24 13:11 Blood Blood Culture - Final NO GROWTH AFTER 5 DAYS OF INCUBATION. Complete 06/17/24 08:50 Urine - [place] Urine Culture - Final Pseudomonas aeruginosa Yeast, not Radha albicans Complete 06/09/24 14:37 Bronchial Washings Gram Stain - Final Complete 06/09/24 14:37 Respiratory Culture - Final Staphylococcus aureus Pseudomonas aeruginosa Complete 06/09/24 14:30 Pleural Fluid Gram Stain - Final Complete 06/09/24 14:30 Pleural Fluid Body Fluid Culture - Final Complete Labs and/or images reviewed: Labs reviewed by me, Image(s) reviewed by me Assessment/Plan Assessment/Plan 2/2. no big changes today. Palm managing2 chest tubes,1 chest tube with more output, 2nd tube with minimal. We will do SAT trials today. Yesterday diastolic BP was low and Lasix was held and some slow fluids were given. Given fluids did not help D BP. vasopressors cont. 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, likely chronic -seen on head CT Cardiology # shock, likely cardiogenic/septic -currently on IV norepinephrine -started on vasopressin # Acute exacerbation of HFrEF -EF <20%, last echo 03/12/24 Currently on Lasix drip started the pt on dobutamine drip, held #moderate TR -seen on echo 03/12/24 #Severe MR -seen on echo 03/12/24 #Mild aortic insufficiency with Dilated aortic root and mild av calcification -seen on echo 03/12/24 #Mod Pulmonary hypertension -seen on echo 03/12/24 #Atrial flutter, currently sinus rhythm -had sync cardioversion on 05/27/24 -currently on amiodarone drip, will switch to oral amiodarone #Non-sustained Vtach -currently on amiodarone drip, will switch to oral amiodarone #Ectatic ascending aorta. -seen on imaging Respiratory #Acute hypoxic resp failure due to CHF exacerbation/pneumonia/pulmonary embolism -on [facility] vent, intubated on 05/26/24 -reintubation on 06/12/24 due to ETT leak # Acute pulmonary embolism with Right heart strain -seen on CT angio -pt was started on heparin drip, later was switched to eliquis -currently on prophylactic Lovenox, will switch to therapeutic dose after surgery, based on risk/benefit # Large right pleural effusion -s/p multiple thoracentesis -pt has currently [address] 06/16/24 shows Moderate right pleural fluid collection with near complete collapse of the right lower lobe chest tube in place within the collection. #Right lower lobe atelectasis -seen on CT #Moderate right anterior pneumothorax --pt has currently 2 chest tubes #Multiple mucus plugs -pt had multiple bronchoscopies #Pneumonia, community acquired, gram +/- -sputum culture reveals Staph aureus and Pseudomonas -IV antibiotics based on culture sensitivity # Small left anterior pneumothorax -seen on CT Monitor # Moderate left pleural fluid collection with complete collapse of the left lower lobe -seen on CT -IV Lasix # left lower lobe atelectasis Seen on CT # pneumomediastinum -Small amount of pneumomediastinum, may be tracking from the bilateral pneumothoraces Nephrology # Hypernatremia -corrected # Hyperkalemia -corrected # hypokalemia Corrected # RADHA likely due to vasomotor nephropathy Monitor BMP # respiratory acidosis with metabolic alkalosis, resolved Monitor ABG # hypophosphatemia Corrected Hematology/oncology # anemia, normocytic, severe 1 unit of PRBC transfusion Monitor # coagulopathy likely due to sepsis Monitor GI # Transaminitis likely due to sepsis -monitor # Moderate colonic diverticulosis -seen on imaging # Cholelithiasis -seen on imaging # complicated UTI -IV antibiotics based on culture -urine culture reveals Pseudomonas and Enterococcus Infectious disease #Sepsis with septic shock -IV antibiotics -currently on norepi drip #Sacral Wound, Unstageable -likely infected -IV antibiotics -surgery consulted for Wound debridement -had wound debridement today Lines PICC line 06/17/24 Left subclavian CVC line 06/05/24, removed 06/17/24 Right femoral A-line 06/03/24 Burk catheter 05/21/24 Drips Norepi fentanyl Versed Lasix drip TPN, discontinued Amiodarone, discontinued and switched to amiodarone tablet Dobutamine DVT prophylaxis Lovenox PPD prophylaxis IV Protonix Nutrition Jevity Bowel regimen Colace Code status discussed with the fiance, for >21 min : FULL CODE Critical care time excluding procedures : 65 minutes Plan discussed with: Other My Orders Orders - KIM BONDS MD Procedure Category Date Status Time Chest Portable XY 06/23/24 Resulted 04:00 Communication Order ORDERS 06/23/24 Transmitted 12:41 Sodium Chl 0.9% PHA 06/23/24 In Process (So... W/Furosemide 14:30 Date of Service: Jun 23, 2024 Billing Provider: KIM BONDS MD Common Visit Codes: 77650-[id number] CARE-EACH +30MIN KIM BONDS MD Jun 23, 2024 17:41
--- NOTE | 2024-06-23 21:27 | DVHPN2 ---
Progress Note - Dictate Date Seen: Jun 23, 2024 Medical Necessity Reason Pt with a Central, PICC or Fol: Yes The following are medically ne: Olsen Catheter Reason for olsen catheter: Strict I&O Subjective Patient seen and examined at bedside. intubated on mechanical ventilator. Overnight events reviewed. vital signs Vital Sign Date Time Temp Pulse Resp B/P (MAP) Pulse Ox O2 Delivery O2 Flow Rate FiO2 06/23/24 20:45 83 23 112/39 (63) 96 30 06/23/24 20:00 99.3 99.3 06/23/24 08:00 Mechanical Ventilator+ Total Intake and Output 06/22/24 06/22/24 06/23/24 15:00 23:00 07:00 Intake Total 704.389 ml 570.904 ml 934.504 ml Output Total 1190 ml 400 ml Balance 704.389 ml -619.096 ml 534.504 ml medications Current Medications Medications Dose Ordered Sig/Amy Route Start Time Stop Time Status Last Admin Dose Admin Potassium Chloride 100 ml @ 50 mls/hr Q2H IV 05/27/24 17:15 05/28/24 01:14 UNV Diagnostic Test (Pha) 1 strip Q6HR 05/30/24 18:00 06/23/24 18:00 1 STRIP Insulin Human Regular FOLLOW SLIDING SCALE Q6HR SC 05/30/24 18:00 06/11/24 18:33 2 UNITS Dextrose 50 ml UD IV 05/30/24 12:15 Acetaminophen 650 mg Q6HP PRN PO 05/31/24 19:30 06/10/24 14:37 650 MG Midazolam HCl 50 ml @ 1 mls/hr Q24H IV 06/08/24 20:15 06/23/24 11:04 5 MLS/HR Norepinephrine Bitartrate 32 mg/ Sodium Chloride 250 ml @ 0.938 mls/ hr Q24H IV 06/11/24 15:30 06/22/24 13:12 2.813 MLS/HR Potassium Chloride 100 ml @ 50 mls/hr Q2H IV 06/13/24 12:45 06/13/24 16:44 UNV Magnesium Sulfate/ Dextrose 100 ml @ 100 mls/hr Q1HR IV 06/13/24 13:00 06/13/24 14:59 UNV Cefepime HCl 50 ml @ 12.5 mls/hr Q8HR IV 06/13/24 14:00 UNV Enoxaparin Sodium 30 mg BID SC 06/14/24 22:00 06/22/24 22:27 30 MG Fentanyl Citrate 250 ml @ 2.5 mls/hr Q24H IV 06/15/24 16:00 06/23/24 13:23 10 MLS/HR Sodium Chloride 10 ml QSHIFT@10,22 IV 06/17/24 22:00 06/23/24 09:40 10 ML Pantoprazole Sodium 40 mg DAILY IV 06/18/24 10:00 06/23/24 09:40 40 MG Linezolid 300 ml @ 150 mls/hr Q12HR IV 06/18/24 11:00 06/23/24 10:42 150 MLS/HR Enteral Nutritional Formula 1,000 ml 30ML/HR GT 06/18/24 16:15 Amiodarone HCl 200 mg Q12HR PO 06/20/24 10:00 06/23/24 09:41 200 MG Dobutamine HCl/ Dextrose 250 ml @ 12.93 mls/ hr [id number] IV 06/20/24 13:00 Hold 06/21/24 05:50 12.93 MLS/HR Vasopressin 20 units/Sodium Chloride 100 ml @ 9 mls/hr Q11H7M IV 06/21/24 07:45 06/23/24 11:05 9 MLS/HR Meropenem 50 ml @ 17 mls/hr Q8HR@0000,0800,1600 IV 06/22/24 00:00 06/23/24 15:55 17 MLS/HR Furosemide 100 mg/ Sodium Chloride 110 ml @ 4.4 mls/hr Q24H IV 06/23/24 14:30 06/23/24 15:26 4.4 MLS/HR objective Gen.: Patient lying in bed in medical ICU. Intubated on mechanical ventilator. Head: Normocephalic, atraumatic. Eyes: PERRLA. Ears: Normal external anatomy. Throat: Endotracheal tube and orogastric tube in place. Neck: Supple, trachea midline. Chest: Transmitted breath sounds bilaterally. Decreased air entry bilaterally. No wheezing. Bibasilar crackles. Cardio vascular: Positive S1, positive S2. Regular rate and rhythm. Abdomen: Positive bowel sounds in all 4 quadrants. Soft, nontender, nondistended. : Olsen in place. Normal external genitalia. Rectal: Deferred Skin: Warm, dry. Intact. Extremities: 2+ radial pulses bilaterally. No lower extremity edema. Neuro: Off sedation laboratory and microbiology Laboratory Tests 06/23/24 05:18 Test 06/23/24 05:18 Range/Units Serum Glucose 92 74-106 mg/dL Assessment/Plan Impression: Acute hypoxic respiratory failure Mechanical ventilator Pleural effusion, right Atelectasis CHF exacerbation Pulmonary embolism Obesity with a BMI of 30.1 Pneumonia, likely gram negative Sacral wound Events: BAM - off sedation Patient failed SBT. Vent support On assist control with respiratory rate of 16, tidal volume 500, PEEP of 5, FiO2 at 30%. ABG notable for alkalemia Monitor RLL chest tube output - 50 mL Off Versed On multiple pressors for hemodynamic support. On Levophed 2 mcg/min, vasopressin 0.03 units/min Titrate to keep MAP above 65 mmHg/SBP above 90 mmHg Improved pressor requirements Amiodarone PO Continue antibiotics TPN for nutritional support Monitor hemoglobin Diurese w/ Lasix drip. Monitor renal function Monitor electrolytes. Supplement as necessary. Monitor ins and outs Nephrology recs appreciated. Wound care Surgery recs appreciated. SBT/BAM - plan for SBT in AM. Poor prognosis Recommend Trach/PEG for liberation from vent. 06/09/24 - S/p bronchoscopy - removed copious secretions from L1-L10 06/09/24 - S/p right thoracentesis - 550 ml joycelyn fluid removed from right pleural space. 06/05/24 - S/p left thoracentesis on 950 mL's of joycelyn colored fluid removed from left pleural space. 06/03/24 - S/p bronchoscopy - cleared mucous plugging from L6-L10, L1-L5 and R1- R3 06/03/24 - S/p right thoracentesis - 1700 mL of serosanguineous fluid removed from R pleural space. S/p bronchoscopy w/ RML BAL on 05/28/24 - Cleared bloody secretions from L1-L10 and R1-R10 S/p cardioversion on 05/27/24 Labs and imaging reviewed. Rest of plan as noted below. Plan: s/p intubation on mechanical ventilator Status post right thoracentesis with removal of 2200 mL ABG reviewed. Alkalemia due to contraction alkalosis. Hypoxemia with a PO2 of 42 mmHg. Patient was emergently intubated and placed on mechanical ventilation. Currently on assist control with respiratory rate of 16, tidal volume 500, PEEP of 5, FiO2 at 30%. Titrate FIO2 to keep O2 saturation above 92%. VAP bundle Daily ABG and CXR while intubated. Off sedation On pressors for hemodynamic support. Titrate to keep MAP above 65 mmHg/SBP above 90 mmHg. Continue antibiotics F/u cultures. Sputum cultures grew Staph aureus and Pseudomonas aeruginosa. Monitor renal function due to Acute kidney injury. Monitor electrolytes. Supplement as necessary. Monitor ins and outs Maintain euvolemia Cardiology recommendations appreciated. Nutritional support. Accu-Cheks, ISS. GI/DVT prophylaxis. Condition: Critical Prognosis: Poor given multiple comorbidities. Rest of plan per hospitalist and other consultants. A total of 35 minutes of critical care time was spent reviewing the patient record, examining the patient, making a diagnostic and therapeutic plan, discussing this plan with the medical personnel, following up on diagnostic studies and following the patient for clinical stability excluding any and all procedures. At least 50% of this time was spent in direct, [id number] contact. Thank you Dr. Conn for allowing me to participate in this patient's care. Further recommendations will depend on patient's clinical course. Please do not hesitate to contact me if you have any questions or concerns. This medical document was created using an electronic medical record system with [employer] dictation system. Although this document has been carefully reviewed, there may still be some phonetic and typographical errors. These areas are purely typographical due to imperfections of the software programs, and do not reflect any compromise in the patient's medical care. Dietary Evaluation Review Comments: 1. consider Renal Specific 70g protein restriction witn 2GNa, 3K, low Phos, if no diaylsis needed. 2. consider Renal Standard 2gn, 3K, low phosphate diet if Pt is on dialysis. 3. encourage and monitor po intake to meet 75% of his needs. Expected Outcomes/Goals: avoid uremic symptoms, gradual healed wounds. Plan discussed with: Other (CALEB Byrd) Critical Care Time(min): 35 BOGDAN MANN MD Jun 23, 2024 21:27
[2024-06-24] VITALS (99 sets, daily range): BP systolic 86–170; BP diastolic 32–133; PULSE 70–92; RESP 11–30; TEMP 97.8–98.9; O2SAT 89–100
[2024-06-24 05:53] LABS: Base Excess 7.5 mmol/L (-2.0-3.0)
[2024-06-24 09:38] LABS: Hemoglobin 7.3 g/dL (13.5-17.5); Mean Corpuscular Hemoglobin 27.1 pg (28.0-32.0); Red Cell Distribution Width 18.9 % (11.8-14.3)
[2024-06-24 09:40] LABS: Hematocrit 23.3 % (41.0-53.0); Mean Corpuscular Hgb Conc. 31.5 g/dL (32.0-36.0); Mean Corpuscular Volume 86.1 fL (80.0-100.0); Platelet Count (auto) 248 10^3/uL (140-450); Red Blood Cells 2.71 10^6/uL (4.5-5.90)
--- NOTE | 2024-06-24 09:44 | DVH ---
EXAM: XY CHEST PORTABLE Indication: mech vent Technique: Portable AP view of the chest was performed. Comparison: XY CHEST PORTABLE on DOS: 06/23/24, XY CHEST XRAY 1 VIEW on DOS: 06/22/24, XY CHEST PORTABLE on DOS: 06/21/24, XY CHEST PORTABLE on DOS: 06/20/24, XY CHEST PORTABLE on DOS: 06/19/24, XY CHEST SANJEEV BLE on DOS: 06/23/24 FINDINGS: Endotracheal tube is re-identified with its tip 5.2 cm above the fredo. OG tube right upper extremit y PICC line, and multiple right thoracostomy tubes are re-identified. Small right apical pneumothorax is re-identified. There is mildly increased right basilar infiltrate. There are ascites throughout the left lung with only a small portion of the left upper lobe remaining aerated. Cardiac margins ar e obscured. IMPRESSION: No significant change compared to prior exam.
[2024-06-24 10:01] LABS: Band Neutrophils % (manual) 0; Basophils % (manual) 0 (0.0-2.0); Blast Cells 0; Eosinophils % (manual) 0 (0-7); Metamyelocytes % 0; Myelocytes % 0; Promyelocytes % 0; Reactive Lymphocytes 0
[2024-06-24 10:38] LABS: Anion Gap 1 (5-15); BUN/Creatinine Ratio 54.9 (10.0-20.0); Chloride 98 mmol/L (98-107); Magnesium 2.1 mg/dL (1.6-2.6)
[2024-06-24 10:44] LABS: Alanine Aminotransferase 62 U/L (7-40); Alkaline Phosphatase 441 U/L (46-116); Aspartate Aminotransferase 57 U/L (13-40); Bilirubin, Total 2.7 mg/dL (0.2-1.0); Blood Urea Nitrogen 28 mg/dL (9-23); Calcium 8.2 mg/dL (8.7-10.4); Carbon Dioxide 35 mmol/L (20-31); Glucose 116 mg/dL (74-106); Potassium 3.2 mmol/L (3.5-5.1); Sodium 134 mmol/L (136-145); Total Protein 5.6 g/dL (5.7-8.2)
[2024-06-24 10:49] LABS: Lymphocytes % (manual) 3 (10.0-50.0); Monocytes % (manual) 3 (0-12); Platelet Estimate Adequate
[2024-06-24 11:50] LABS: Folate (Folic Acid) 5.24 ng/mL (>5.38)
[2024-06-24] MEDS: LINEZOLID 600MG/300ML 300 ML IV SCH (12:00)
--- NOTE | 2024-06-24 13:53 | DVHPN2 ---
Progress Note - Dictate Date Seen: Jun 24, 2024 Medical Necessity Reason Pt with a Central, PICC or Fol: Yes The following are medically ne: Olsen Catheter Reason for olsen catheter: Strict I&O Subjective PT WITH SS COMPLEX INCRESEING SOB HARVEY LE EDEMA HFrEF CHRONIC AND ACUTE NOW WITH HEMOPTYSIS TACHYCARDIA CTA LUNG C/W PE ACUTE vital signs Vital Sign Date Time Temp Pulse Resp B/P (MAP) Pulse Ox O2 Delivery O2 Flow Rate FiO2 06/24/24 12:00 30 06/24/24 12:00 89 06/24/24 11:37 30 112/43 (66) 98 06/24/24 08:15 97.8 97.8 06/24/24 08:00 Mechanical Ventilator+ Total Intake and Output 06/23/24 06/23/24 06/24/24 15:00 23:00 07:00 Intake Total 606.704 ml 633.328 ml 672.389 ml Output Total 600 ml 1150 ml Balance 606.704 ml 33.328 ml -477.611 ml medications Current Medications Medications Dose Ordered Sig/Amy Route Start Time Stop Time Status Last Admin Dose Admin Potassium Chloride 100 ml @ 50 mls/hr Q2H IV 05/27/24 17:15 05/28/24 01:14 UNV Diagnostic Test (Pha) 1 strip Q6HR 05/30/24 18:00 06/24/24 05:54 1 STRIP Insulin Human Regular FOLLOW SLIDING SCALE Q6HR SC 05/30/24 18:00 06/24/24 01:27 2 UNITS Dextrose 50 ml UD IV 05/30/24 12:15 Acetaminophen 650 mg Q6HP PRN PO 05/31/24 19:30 06/10/24 14:37 650 MG Midazolam HCl 50 ml @ 1 mls/hr Q24H IV 06/08/24 20:15 06/23/24 11:04 5 MLS/HR Norepinephrine Bitartrate 32 mg/ Sodium Chloride 250 ml @ 0.938 mls/ hr Q24H IV 06/11/24 15:30 06/22/24 13:12 2.813 MLS/HR Potassium Chloride 100 ml @ 50 mls/hr Q2H IV 06/13/24 12:45 06/13/24 16:44 UNV Magnesium Sulfate/ Dextrose 100 ml @ 100 mls/hr Q1HR IV 06/13/24 13:00 06/13/24 14:59 UNV Cefepime HCl 50 ml @ 12.5 mls/hr Q8HR IV 06/13/24 14:00 UNV Enoxaparin Sodium 30 mg BID SC 06/14/24 22:00 06/24/24 10:18 30 MG Fentanyl Citrate 250 ml @ 2.5 mls/hr Q24H IV 06/15/24 16:00 06/23/24 13:23 10 MLS/HR Sodium Chloride 10 ml QSHIFT@10,22 IV 06/17/24 22:00 06/24/24 10:17 10 ML Pantoprazole Sodium 40 mg DAILY IV 06/18/24 10:00 06/24/24 10:17 40 MG Enteral Nutritional Formula 1,000 ml 30ML/HR GT 06/18/24 16:15 Amiodarone HCl 200 mg Q12HR PO 06/20/24 10:00 06/24/24 10:18 200 MG Dobutamine HCl/ Dextrose 250 ml @ 12.93 mls/ hr [id number] IV 06/20/24 13:00 Hold 06/21/24 05:50 12.93 MLS/HR Vasopressin 20 units/Sodium Chloride 100 ml @ 9 mls/hr Q11H7M IV 06/21/24 07:45 06/23/24 23:25 9 MLS/HR Meropenem 50 ml @ 17 mls/hr Q8HR@0000,0800,1600 IV 06/22/24 00:00 06/24/24 08:28 17 MLS/HR Furosemide 100 mg/ Sodium Chloride 110 ml @ 4.4 mls/hr Q24H IV 06/23/24 14:30 06/23/24 23:26 4.4 MLS/HR Linezolid 300 ml @ 150 mls/hr Q12H IV 06/24/24 12:00 objective PUL DIFF RHONCHI JVD ANGLE OF THE JAW CV RR PMI DIFFUSE EXT 3+ EDEMA laboratory and microbiology Laboratory Tests 06/24/24 09:10 Test 06/24/24 09:10 Range/Units Serum Glucose 116 H 74-106 mg/dL Problem List SS COMPLEX INCRESEING SOB HARVEY LE EDEMA HFrEF CHRONIC AND ACUTE EF < 20% NOW WITH HEMOPTYSIS TACHYCARDIA CTA LUNG C/W PE 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 Large filling defect right pulmonary artery consistent with pulmonary embolus. No film findings of pulmonary artery hypertension. No pulmonary emboli noted on the left. 2. Findings are also suggestive of right heart strain. 3. Large right pleural effusion. HEPARIN DRIP\ LASIX DRIP WILL START ORAL ANTICOAGULATION IN 48 HOURS ABX LE ARTERIAL DOPPLER NO SIGNIFICANT DISEASE FOR LIMB RISK DC HEPARIN START ELIQUIS S/P CT HEAD CURRENTLY ON BiPAP IMPROVING RESP STATUS 7. TITRATE BIPAP THORACENTESIS ULTRASOUND GUIDED MRI OF ABD S/P THORACENTESIS 2200 CC DRAINED CXR BILATERAL INFILTRATE PROMINENT MEDIASTINUM CARDIOMEGALY HYPOKALEMIA BEING CORRECTED A FLUTTER S/P CARDIOVERSION SINUS RHYTHM TITRATE OFF LEVOPHED USE ALBUMIN FOR PRESSURE SPORT DC LASIX DRIP START D5 1/4 NS AT 125 CC/HR BMP/ BNP DAILY cont volume replacement contraction alkalosis leukocytosis improved monitor h/h HYPERNATREMIA IMPROVING DIAMOX X 1 DOSE HYPERNATREMIA CORRECTED DC IV FLUID CONT TPN INCREASE VENT SETTING TO AC 22 EPISODE OF VT CORRECT ACIDOSIS MAG SO4 2 G TITRATE OFF LEVOPHED DIAMOX TREAT METABOLIC ALKALOSIS RESP ACIDOSIS START TITRATING OFF SEDATION IMPROVED RESP PARAMETERS LIVER ENZYMES STILL ELEVATED wean off sedation CORRECT HYPERNATREMIA CHECK BNP AICD IMPLANTATION PT DEVELOPED PNEUMOTHORAX DELAYING EXTUBATION PNEUMOTHORAX IMPROVED LEUKOCYTOSIS AGAIN ELECTROLYTES BETTER NOW CXR CONSISTENT WITH CHF CORRECT K AND Mg CHANGE ABX VANCO AND AZTREONAM EPOGEN IRON DC ELIQUIS START LOVENOX WBC CONTINUES TO INCREASE NEEDS SURGICAL DEBRIDEMENT OF DECUB CXR WORSENING EFFUSION AND FLUID OVERLOAD START LASIX DRIP CXR CONSISTENT WITH MULTIFOCAL CONSOLIDATION EXCELLENT DIURESIS WITH LASIX DRIP MONITOR FLUID STATUS NEEDS DEBRIDEMENT OF DECUB WITH PERSISTENT LEUKOCYTOSIS CONSIDER BRONCHOSCOPY TO CLEAR CONSOLIDATION/ MUCUS CXR WORSENING LEFT SIDED EFFUSION/ INFILTRATE LEUKOCYTOSIS WORSENING DESPITE WOUND DEBRIDEMENT RECOMMEND BRONCHOSCOPY S/P DEBRIDEMENT OF STAGE IV DECUB LEUKOCYTOSIS TRENDING DOWN CHECK CXR CHECK BNP CORRECT K PROGRESSIVE ANEMIA NEEDS ANTICOAGULATION FOR PE CONSIDER BRONCHOSCOPY Dietary Evaluation Review Comments: 1. consider Renal Specific 70g protein restriction witn 2GNa, 3K, low Phos, if no diaylsis needed. 2. consider Renal Standard 2gn, 3K, low phosphate diet if Pt is on dialysis. 3. encourage and monitor po intake to meet 75% of his needs. Expected Outcomes/Goals: avoid uremic symptoms, gradual healed wounds. Plan discussed with: Patient Critical Care Time(min): 35 ISSAC SHAH MD Jun 24, 2024 13:52
--- NOTE | 2024-06-24 17:23 | DVH ---
Bilateral Chest Sonogram Clinical history: FLUID CHECK Technique: Limited sonographic evaluation of the right and left chest was performed. Findings/Impression: Trace to small bilateral pleural effusions. Right pleural fluid appears complex with multiple septat ions.
--- NOTE | 2024-06-24 20:06 | DVHPNRES ---
Progress Note Date Seen: Jun 24, 2024 Resident Creating Document: FARIDA HOLT RESIDENT Medical Necessity Reason Pt with a Central, PICC or Fol: Yes The following are medically ne: Olsen Catheter Reason for olsen catheter: Strict I&O Subjective Review of Systems Patient seen and examined at bedside Currently sedated and intubated Review of system could not be done as patient is sedated Objective vital signs Vital Sign Date Time Temp Pulse Resp B/P (MAP) Pulse Ox O2 Delivery O2 Flow Rate FiO2 06/24/24 18:00 30 06/24/24 18:00 83 24 102/44 (63) 100 06/24/24 16:00 98.2 98.2 06/24/24 08:00 Mechanical Ventilator+ Total Intake and Output 06/23/24 06/23/24 06/24/24 15:00 23:00 07:00 Intake Total 606.704 ml 633.328 ml 672.389 ml Output Total 600 ml 1150 ml Balance 606.704 ml 33.328 ml -477.611 ml medications Current Medications Medications Dose Ordered Sig/Amy Route Start Time Stop Time Status Last Admin Dose Admin Potassium Chloride 100 ml @ 50 mls/hr Q2H IV 05/27/24 17:15 05/28/24 01:14 UNV Diagnostic Test (Pha) 1 strip Q6HR 05/30/24 18:00 06/24/24 18:00 1 STRIP Insulin Human Regular FOLLOW SLIDING SCALE Q6HR SC 05/30/24 18:00 06/24/24 01:27 2 UNITS Dextrose 50 ml UD IV 05/30/24 12:15 Acetaminophen 650 mg Q6HP PRN PO 05/31/24 19:30 06/10/24 14:37 650 MG Midazolam HCl 50 ml @ 1 mls/hr Q24H IV 06/08/24 20:15 06/24/24 17:38 2 MLS/HR Norepinephrine Bitartrate 32 mg/ Sodium Chloride 250 ml @ 0.938 mls/ hr Q24H IV 06/11/24 15:30 06/22/24 13:12 2.813 MLS/HR Potassium Chloride 100 ml @ 50 mls/hr Q2H IV 06/13/24 12:45 06/13/24 16:44 UNV Magnesium Sulfate/ Dextrose 100 ml @ 100 mls/hr Q1HR IV 06/13/24 13:00 06/13/24 14:59 UNV Cefepime HCl 50 ml @ 12.5 mls/hr Q8HR IV 06/13/24 14:00 UNV Enoxaparin Sodium 30 mg BID SC 06/14/24 22:00 06/24/24 10:18 30 MG Fentanyl Citrate 250 ml @ 2.5 mls/hr Q24H IV 06/15/24 16:00 06/23/24 13:23 10 MLS/HR Sodium Chloride 10 ml QSHIFT@10,22 IV 06/17/24 22:00 06/24/24 10:17 10 ML Pantoprazole Sodium 40 mg DAILY IV 06/18/24 10:00 06/24/24 10:17 40 MG Enteral Nutritional Formula 1,000 ml 30ML/HR GT 06/18/24 16:15 Amiodarone HCl 200 mg Q12HR PO 06/20/24 10:00 06/24/24 10:18 200 MG Dobutamine HCl/ Dextrose 250 ml @ 12.93 mls/ hr [id number] IV 06/20/24 13:00 Hold 06/21/24 05:50 12.93 MLS/HR Vasopressin 20 units/Sodium Chloride 100 ml @ 9 mls/hr Q11H7M IV 06/21/24 07:45 06/23/24 23:25 9 MLS/HR Meropenem 50 ml @ 17 mls/hr Q8HR@0000,0800,1600 IV 06/22/24 00:00 06/24/24 17:38 17 MLS/HR Furosemide 100 mg/ Sodium Chloride 110 ml @ 4.4 mls/hr Q24H IV 06/23/24 14:30 06/23/24 23:26 4.4 MLS/HR Linezolid 300 ml @ 150 mls/hr Q12H IV 06/24/24 12:00 Examination Examination General Appearance: sedated and intubated Respiratory: Clear to auscultation, Normal air movement, chest tube present right upper and lower lobe, air leak present in lower chest tube Cardiovascular: Regular rate, Normal S1, Normal S2 Abdominal: Normal bowel sounds Extremities: No cyanosis, No edema, Normal pulses, No tenderness/swelling Skin: sacral ulcer unstageable Neuro: sedated and intubation laboratory and microbiology Laboratory Tests 06/24/24 09:10 Test 06/24/24 09:10 Range/Units Serum Glucose 116 H 74-106 mg/dL Microbiology Date/Time Source Procedure Growth Status 06/19/24 21:00 Other Wound Gram Stain - Final Complete 06/19/24 21:00 Other Wound Anaerobic Culture - Final Complete 06/19/24 21:00 Aerobic Culture - Final Enterococcus casseliflavus Pseudomonas aeruginosa Complete 06/18/24 13:11 Blood Blood Culture - Final NO GROWTH AFTER 5 DAYS OF INCUBATION. Complete 06/17/24 08:50 Urine - Olsen [place] Urine Culture - Final Pseudomonas aeruginosa Yeast, not Radha albicans Complete 06/09/24 14:37 Bronchial Washings Gram Stain - Final Complete 06/09/24 14:37 Respiratory Culture - Final Staphylococcus aureus Pseudomonas aeruginosa Complete 06/09/24 14:30 Pleural Fluid Gram Stain - Final Complete 06/09/24 14:30 Pleural Fluid Body Fluid Culture - Final Complete Labs and/or images reviewed: Labs reviewed by me, Image(s) reviewed by me Problem List/Assessment/Plan Problem List/Assessment/Plan Assessment/Plan 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, likely chronic -seen on head CT Cardiology # shock, likely cardiogenic/septic -currently on IV norepinephrine -started on vasopressin # Acute exacerbation of HFrEF -EF <20%, last echo 03/12/24 Currently on Lasix drip started the pt on dobutamine drip, held #moderate TR -seen on echo 03/12/24 #Severe MR -seen on echo 03/12/24 #Mild aortic insufficiency with Dilated aortic root and mild av calcification -seen on echo 03/12/24 #Mod Pulmonary hypertension -seen on echo 03/12/24 #Atrial flutter, currently sinus rhythm -had sync cardioversion on 05/27/24 -currently on amiodarone drip, will switch to oral amiodarone #Non-sustained Vtach -currently on amiodarone drip, will switch to oral amiodarone #Ectatic ascending aorta. -seen on imaging Respiratory #Acute hypoxic resp failure due to CHF exacerbation/pneumonia/pulmonary embolism -on [facility] vent, intubated on 05/26/24 -reintubation on 06/12/24 due to ETT leak PLANNED FOR TRACHEOSTOMY # Acute pulmonary embolism with Right heart strain -seen on CT angio -pt was started on heparin drip, later was switched to eliquis -currently on prophylactic Lovenox, will switch to therapeutic dose after surgery, based on risk/benefit # Large right pleural effusion -s/p multiple thoracentesis -pt has currently [address] 06/16/24 shows Moderate right pleural fluid collection with near complete collapse of the right lower lobe chest tube in place within the collection. #Right lower lobe atelectasis -seen on CT #Moderate right anterior pneumothorax --pt has currently 2 chest tubes #Multiple mucus plugs -pt had multiple bronchoscopies #Pneumonia, community acquired, gram +/- -sputum culture reveals Staph aureus and Pseudomonas -IV antibiotics based on culture sensitivity # Small left anterior pneumothorax -seen on CT Monitor # Moderate left pleural fluid collection with complete collapse of the left lower lobe -seen on CT -IV Lasix Radiology consulted for Thoracentesis, ultrasound ordered # left lower lobe atelectasis Seen on CT # pneumomediastinum -Small amount of pneumomediastinum, may be tracking from the bilateral pneumothoraces Nephrology # Hypernatremia -corrected # Hyperkalemia -corrected # hypokalemia Corrected # RADHA likely due to vasomotor nephropathy Monitor BMP # metabolic alkalosis with respiratory alkalosis Monitor ABG # hypophosphatemia Corrected Hematology/oncology # anemia, normocytic, severe 1 unit of PRBC transfusion Monitor # coagulopathy likely due to sepsis Monitor GI # Transaminitis likely due to sepsis -monitor # Moderate colonic diverticulosis -seen on imaging # Cholelithiasis -seen on imaging # complicated UTI -IV antibiotics based on culture -urine culture reveals Pseudomonas and Enterococcus Infectious disease #Sepsis with septic shock -IV antibiotics based on culture results -currently on norepi drip and vasopressin drip Repeat blood culture and send tip culture of a line #Sacral Wound, Unstageable -likely infected -IV antibiotics -surgery consulted for Wound debridement -had wound debridement today Lines PICC line 06/17/24 Left subclavian CVC line 06/05/24, removed 06/17/24 Right femoral A-line 06/03/24, discontinued 06/24/2024 Olsen catheter 05/21/24 Drips Norepi Vasopressin fentanyl Versed Lasix drip DVT prophylaxis Lovenox PPD prophylaxis IV Protonix Nutrition Jevity Bowel regimen Colace Code status discussed with the fiance, for >21 min : FULL CODE Critical care time excluding procedures : 67 minutes Fiance updated about the condition of the patient Case discussion with Dr Clayton Plan discussed with: Other My Orders My Orders Orders - FARIDA HOLT Procedure Category Date Status Time Chest Portable XY 06/24/24 Resulted 08:11 Linezolid 600mg/300ml PHA 06/24/24 In Process ([facility]) 12:00 Chest Ultrasound US 06/24/24 Resulted 16:26 D/C Pa Catheter ORDERS 06/24/24 Transmitted 17:30 Routine Bacterial LOWELL 06/24/24 Logged Culture 17:30 Blood Culture LOWELL 06/24/24 Uncollected 18:36 Routine Bacterial LOWELL 06/24/24 Logged Culture 18:00 Dietary Evaluation Review Comments: 1. consider Renal Specific 70g protein restriction witn 2GNa, 3K, low Phos, if no diaylsis needed. 2. consider Renal Standard 2gn, 3K, low phosphate diet if Pt is on dialysis. 3. encourage and monitor po intake to meet 75% of his needs. Expected Outcomes/Goals: avoid uremic symptoms, gradual healed wounds. FARIDA HOLT Jun 24, 2024 20:06 TIFFANY CLAYTON MD Jun 25, 2024 16:10
[2024-06-24] MEDS: POTASSIUM CHL 20MEQ/100ML 100 ML IV SCH (20:30)
[2024-06-25] VITALS (108 sets, daily range): BP systolic 71–129; BP diastolic 28–55; PULSE 65–87; RESP 0–20; TEMP 97.8–98.3; O2SAT 96–100
--- NOTE | 2024-06-25 05:18 | DVH ---
EXAM: XR Cervical Spine, 6 or More Views CLINICAL INDICATION: mech vent TECHNIQUE: Frontal, lateral, oblique and flexion/extension views of the cervical spine. COMPARISON: XY CHEST PORTABLE on DOS: 06/24/24, XY CHEST PORTABLE on DOS: 06/23/24, XY CHEST XRAY 1 VIE W on DOS: 06/22/24, XY CHEST PORTABLE on DOS: 06/21/24, XY CHEST PORTABLE on DOS: 06/20/24 FINDINGS: VERTEBRAE: Unremarkable. No acute fracture. Normal alignment. No instability. DISC SPACES: No acute findings. No significant narrowing. SOFT TISSUES: Unremarkable. PLEURAL SPACE: Redemonstration right basilar pneumothorax, unchanged. Bilateral pleural effusions. HEART: Cardiomegaly with pulmonary congestion and edema. Superimposed pneumonia cannot be excluded. TUBES, LINES AND DEVICES: Stable tubes. OTHER FINDINGS: . . IMPRESSION: 1. Cardiomegaly with pulmonary congestion and edema. Superimposed pneumonia cannot be excluded. 2. Bilateral pleural effusions. 3. No significant change from the prior exam.
[2024-06-25 05:19] LABS: Hemoglobin 7.6 g/dL (13.5-17.5)
[2024-06-25 05:24] LABS: Hematocrit 24.3 % (41.0-53.0); Mean Corpuscular Hemoglobin 26.8 pg (28.0-32.0); Mean Corpuscular Hgb Conc. 31.3 g/dL (32.0-36.0); Mean Corpuscular Volume 85.7 fL (80.0-100.0); Platelet Count (auto) 280 10^3/uL (140-450); Red Blood Cells 2.84 10^6/uL (4.5-5.90); Red Cell Distribution Width 19.2 % (11.8-14.3)
[2024-06-25 05:29] LABS: Anion Gap 6 (5-15); Chloride 101 mmol/L (98-107); Potassium 3.8 mmol/L (3.5-5.1); Sodium 141 mmol/L (136-145)
[2024-06-25 05:31] LABS: INR 1.12 (0.9-1.15); Partial Thromboplastin Time 30.9 SEC (24.5-34.5); Prothrombin Time 11.7 sec (9.3-11.8)
[2024-06-25 05:35] LABS: BUN/Creatinine Ratio 55.6 (10.0-20.0); Magnesium 2.2 mg/dL (1.6-2.6)
[2024-06-25 05:45] LABS: Blood Urea Nitrogen 30 mg/dL (9-23); Calcium 8.2 mg/dL (8.7-10.4); Carbon Dioxide 34 mmol/L (20-31); Glucose 108 mg/dL (74-106)
[2024-06-25 05:51] LABS: White Blood Cell 31.2 10^3/uL (4.4-10.8)
[2024-06-25 05:53] LABS: Band Neutrophils % (manual) 0; Basophils % (manual) 0 (0.0-2.0); Blast Cells 0; Eosinophils % (manual) 0 (0-7); Metamyelocytes % 0; Myelocytes % 0; Promyelocytes % 0; Reactive Lymphocytes 0
[2024-06-25 07:19] LABS: Base Excess 9.7 mmol/L (-2.0-3.0)
--- NOTE | 2024-06-25 08:28 | DVH ---
Bilateral Chest Sonogram Date: 06/25/2024 07:39 AM Clinical history: REPEAT FLUID CHECK Findings: Bilateral moderate complex septated fluid left greater than right. Right chest tube in place. IMPRESSION: Bilateral moderate complex septated fluid left greater than right. Right chest tube in place. END IMPRESSION:
[2024-06-25 09:08] LABS: Lymphocytes % (manual) 12 (10.0-50.0); Monocytes % (manual) 2 (0-12); Platelet Estimate Adequate
[2024-06-25 12:14] LABS: INR 1.14 (0.9-1.15); Partial Thromboplastin Time 31.2 SEC (24.5-34.5); Prothrombin Time 11.9 sec (9.3-11.8)
--- NOTE | 2024-06-25 13:13 | DVHPN2 ---
Progress Note - Dictate Date Seen: Jun 25, 2024 Medical Necessity Reason Pt with a Central, PICC or Fol: Yes The following are medically ne: Olsen Catheter Reason for olsen catheter: Strict I&O Subjective PT WITH SS COMPLEX INCRESEING SOB HARVEY LE EDEMA HFrEF CHRONIC AND ACUTE NOW WITH HEMOPTYSIS TACHYCARDIA CTA LUNG C/W PE ACUTE vital signs Vital Sign Date Time Temp Pulse Resp B/P (MAP) Pulse Ox O2 Delivery O2 Flow Rate FiO2 06/25/24 12:01 77 19 95/41 (59) 100 30 06/25/24 12:00 98.3 98.3 06/25/24 07:51 Mechanical Ventilator+ Total Intake and Output 06/24/24 06/24/24 06/25/24 15:00 23:00 07:00 Intake Total 458.952 ml 681.703 ml 937.890 ml Output Total 485 ml 410 ml Balance 458.952 ml 196.703 ml 527.890 ml medications Current Medications Medications Dose Ordered Sig/Amy Route Start Time Stop Time Status Last Admin Dose Admin Potassium Chloride 100 ml @ 50 mls/hr Q2H IV 05/27/24 17:15 05/28/24 01:14 UNV Diagnostic Test (Pha) 1 strip Q6HR 05/30/24 18:00 06/25/24 12:26 1 STRIP Insulin Human Regular FOLLOW SLIDING SCALE Q6HR SC 05/30/24 18:00 06/24/24 01:27 2 UNITS Dextrose 50 ml UD IV 05/30/24 12:15 Acetaminophen 650 mg Q6HP PRN PO 05/31/24 19:30 06/10/24 14:37 650 MG Midazolam HCl 50 ml @ 1 mls/hr Q24H IV 06/08/24 20:15 06/25/24 08:39 6 MLS/HR Norepinephrine Bitartrate 32 mg/ Sodium Chloride 250 ml @ 0.938 mls/ hr Q24H IV 06/11/24 15:30 06/25/24 08:40 4.688 MLS/HR Potassium Chloride 100 ml @ 50 mls/hr Q2H IV 06/13/24 12:45 06/13/24 16:44 UNV Magnesium Sulfate/ Dextrose 100 ml @ 100 mls/hr Q1HR IV 06/13/24 13:00 06/13/24 14:59 UNV Cefepime HCl 50 ml @ 12.5 mls/hr Q8HR IV 06/13/24 14:00 UNV Enoxaparin Sodium 30 mg BID SC 06/14/24 22:00 06/25/24 10:00 30 MG Fentanyl Citrate 250 ml @ 2.5 mls/hr Q24H IV 06/15/24 16:00 06/25/24 02:10 15 MLS/HR Sodium Chloride 10 ml QSHIFT@10,22 IV 06/17/24 22:00 06/25/24 09:59 10 ML Pantoprazole Sodium 40 mg DAILY IV 06/18/24 10:00 06/25/24 09:59 40 MG Amiodarone HCl 200 mg Q12HR PO 06/20/24 10:00 06/25/24 10:00 200 MG Dobutamine HCl/ Dextrose 250 ml @ 12.93 mls/ hr [id number] IV 06/20/24 13:00 Hold 06/21/24 05:50 12.93 MLS/HR Vasopressin 20 units/Sodium Chloride 100 ml @ 9 mls/hr Q11H7M IV 06/21/24 07:45 06/23/24 23:25 9 MLS/HR Meropenem 50 ml @ 17 mls/hr Q8HR@0000,0800,1600 IV 06/22/24 00:00 06/25/24 08:39 17 MLS/HR Furosemide 100 mg/ Sodium Chloride 110 ml @ 4.4 mls/hr Q24H IV 06/23/24 14:30 06/24/24 20:31 4.4 MLS/HR Linezolid 300 ml @ 150 mls/hr Q12H IV 06/24/24 12:00 06/25/24 12:26 150 MLS/HR Enteral Nutritional Formula 1,000 ml 50ML/HR GT 06/25/24 10:30 objective PUL DIFF RHONCHI JVD ANGLE OF THE JAW CV RR PMI DIFFUSE EXT 3+ EDEMA laboratory and microbiology Laboratory Tests 06/25/24 04:38 Test 06/25/24 04:38 Range/Units Serum Glucose 108 H 74-106 mg/dL Problem List SS COMPLEX INCRESEING SOB HARVEY LE EDEMA HFrEF CHRONIC AND ACUTE EF < 20% NOW WITH HEMOPTYSIS TACHYCARDIA CTA LUNG C/W PE 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 Large filling defect right pulmonary artery consistent with pulmonary embolus. No film findings of pulmonary artery hypertension. No pulmonary emboli noted on the left. 2. Findings are also suggestive of right heart strain. 3. Large right pleural effusion. HEPARIN DRIP\ LASIX DRIP WILL START ORAL ANTICOAGULATION IN 48 HOURS ABX LE ARTERIAL DOPPLER NO SIGNIFICANT DISEASE FOR LIMB RISK DC HEPARIN START ELIQUIS S/P CT HEAD CURRENTLY ON BiPAP IMPROVING RESP STATUS 7.32/59/69 TITRATE BIPAP THORACENTESIS ULTRASOUND GUIDED MRI OF ABD S/P THORACENTESIS 2200 CC DRAINED CXR BILATERAL INFILTRATE PROMINENT MEDIASTINUM CARDIOMEGALY HYPOKALEMIA BEING CORRECTED A FLUTTER S/P CARDIOVERSION SINUS RHYTHM TITRATE OFF LEVOPHED USE ALBUMIN FOR PRESSURE SPORT DC LASIX DRIP START D5 1/4 NS AT 125 CC/HR BMP/ BNP DAILY cont volume replacement contraction alkalosis leukocytosis improved monitor h/h HYPERNATREMIA IMPROVING DIAMOX X 1 DOSE HYPERNATREMIA CORRECTED DC IV FLUID CONT TPN INCREASE VENT SETTING TO AC 22 EPISODE OF VT CORRECT ACIDOSIS MAG SO4 2 G TITRATE OFF LEVOPHED DIAMOX TREAT METABOLIC ALKALOSIS RESP ACIDOSIS START TITRATING OFF SEDATION IMPROVED RESP PARAMETERS LIVER ENZYMES STILL ELEVATED wean off sedation CORRECT HYPERNATREMIA CHECK BNP AICD IMPLANTATION PT DEVELOPED PNEUMOTHORAX DELAYING EXTUBATION PNEUMOTHORAX IMPROVED LEUKOCYTOSIS AGAIN ELECTROLYTES BETTER NOW CXR CONSISTENT WITH CHF CORRECT K AND Mg CHANGE ABX VANCO AND AZTREONAM EPOGEN IRON DC ELIQUIS START LOVENOX WBC CONTINUES TO INCREASE NEEDS SURGICAL DEBRIDEMENT OF DECUB CXR WORSENING EFFUSION AND FLUID OVERLOAD START LASIX DRIP CXR CONSISTENT WITH MULTIFOCAL CONSOLIDATION EXCELLENT DIURESIS WITH LASIX DRIP MONITOR FLUID STATUS NEEDS DEBRIDEMENT OF DECUB WITH PERSISTENT LEUKOCYTOSIS CONSIDER BRONCHOSCOPY TO CLEAR CONSOLIDATION/ MUCUS CXR WORSENING LEFT SIDED EFFUSION/ INFILTRATE LEUKOCYTOSIS WORSENING DESPITE WOUND DEBRIDEMENT RECOMMEND BRONCHOSCOPY S/P DEBRIDEMENT OF STAGE IV DECUB LEUKOCYTOSIS TRENDING DOWN CHECK CXR CHECK BNP CORRECT K PROGRESSIVE ANEMIA NEEDS ANTICOAGULATION FOR PE CONSIDER BRONCHOSCOPY WORSENING WBC Dietary Evaluation Review Comments: 1. consider Renal Specific 70g protein restriction witn 2GNa, 3K, low Phos, if no diaylsis needed. 2. consider Renal Standard 2gn, 3K, low phosphate diet if Pt is on dialysis. 3. encourage and monitor po intake to meet 75% of his needs. Expected Outcomes/Goals: avoid uremic symptoms, gradual healed wounds. Plan discussed with: Spouse Critical Care Time(min): 35 ISSAC SHAH MD Jun 25, 2024 13:13
--- NOTE | 2024-06-25 15:26 | DVH ---
US THORACENTESIS, HISTORY: LEFT EFFUSION PROCEDURE: Informed consent was obtained. The patient was decubitus on the bed. A limited localizatio n ultrasound of the left thorax was obtained, and the optimal approach was marked on the skin. The ar ea was prepped with chlorhexidine which was allowed to dry and draped in the usual sterile fashion. T rosa isela out was performed. The skin and the soft tissues were infiltrated with 1% lidocaine. A 5.5 [place] centesis needle catheter was advanced into left pleural space. Following aspiration of fluid, the ca theter was advanced and the needle removed. About 1500 cc of fluid was drained. Specimen/s was/were s ent for appropriate cultures/cytology/cultures and cytology. No immediate complication was identified . FINDINGS: Septated large left pleural effusion. Aspirated fluid is serosanguinous. IMPRESSION: Left thoracentesis with 1.5L serosanguinous fluid removed.
--- NOTE | 2024-06-25 15:44 | DVH ---
CHEST RADIOGRAPH Indication: POST THORACENTESIS Technique: Single frontal view of the chest was obtained COMPARISON: XY CHEST PORTABLE on DOS: 06/25/24, XY CHEST PORTABLE on DOS: 06/24/24, XY CHEST PORTABLE on DOS: 06/23/24, XY CHEST XRAY 1 VIEW on DOS: 06/22/24, XY CHEST PORTABLE on DOS: 06/21/24 FINDINGS: Lines and Tubes: Endotracheal tube 6.5 cm above the fredo. Right-sided chest tube. right-sided PICC linings in the superior vena cava. Small right apical pneumothorax. Nasal gastric tube extending int o the stomach but not identified distally. Lungs: Bibasilar atelectasis. Patchy infiltrate right lung base. Effacement left hemidiaphragm. Pleura: Dark diminutive in the left pleural effusion. There appear to be pockets of air in the left h emithorax consistent with a loculated pneumothorax. Loculated right basilar pneumothorax minimally decreased in size when compared to the previous study Cardiomediastinal contours: Stable heart size. Bones: Unremarkable IMPRESSION: 1. Post thoracentesis study demonstrates markedly diminished fluid in the left hemithorax. 2. Loculated moderate sized left pneumothorax. 3. Patchy infiltrate right lung base. 4. Small right apical pneumothorax. Loculated right basilar pneumothorax. 5. Tubes and lines well positioned.
[2024-06-25 16:17] LABS: Hematocrit 23.3 % (41.0-53.0); Hemoglobin 7.5 g/dL (13.5-17.5)
--- NOTE | 2024-06-25 20:31 | DVHPNRES ---
Progress Note Date Seen: Jun 25, 2024 Resident Creating Document: FARIDA HOLT RESIDENT Medical Necessity Reason Pt with a Central, PICC or Fol: Yes The following are medically ne: Olsen Catheter Reason for olsen catheter: Strict I&O Subjective Review of Systems Patient seen and examined at bedside Currently sedated and intubated Review of system could not be done as patient is sedated pt had thoracentesis Left thoracentesis with 1.5L serosanguineous fluid removed. ROS Could not be done as patient is sedated and intubated Objective vital signs Vital Sign Date Time Temp Pulse Resp B/P (MAP) Pulse Ox O2 Delivery O2 Flow Rate FiO2 06/25/24 19:00 77 19 92/44 (60) 100 06/25/24 18:10 Mechanical Ventilator 06/25/24 18:10 30 30 06/25/24 16:30 97.8 97.8 Total Intake and Output 06/24/24 06/24/24 06/25/24 15:00 23:00 07:00 Intake Total 458.952 ml 681.703 ml 937.890 ml Output Total 485 ml 410 ml Balance 458.952 ml 196.703 ml 527.890 ml medications Current Medications Medications Dose Ordered Sig/Amy Route Start Time Stop Time Status Last Admin Dose Admin Potassium Chloride 100 ml @ 50 mls/hr Q2H IV 05/27/24 17:15 05/28/24 01:14 UNV Diagnostic Test (Pha) 1 strip Q6HR 05/30/24 18:00 06/25/24 18:00 1 STRIP Insulin Human Regular FOLLOW SLIDING SCALE Q6HR SC 05/30/24 18:00 06/24/24 01:27 2 UNITS Dextrose 50 ml UD IV 05/30/24 12:15 Acetaminophen 650 mg Q6HP PRN PO 05/31/24 19:30 06/10/24 14:37 650 MG Midazolam HCl 50 ml @ 1 mls/hr Q24H IV 06/08/24 20:15 06/25/24 14:34 6 MLS/HR Norepinephrine Bitartrate 32 mg/ Sodium Chloride 250 ml @ 0.938 mls/ hr Q24H IV 06/11/24 15:30 06/25/24 08:40 4.688 MLS/HR Potassium Chloride 100 ml @ 50 mls/hr Q2H IV 06/13/24 12:45 06/13/24 16:44 UNV Magnesium Sulfate/ Dextrose 100 ml @ 100 mls/hr Q1HR IV 06/13/24 13:00 06/13/24 14:59 UNV Cefepime HCl 50 ml @ 12.5 mls/hr Q8HR IV 06/13/24 14:00 UNV Fentanyl Citrate 250 ml @ 2.5 mls/hr Q24H IV 06/15/24 16:00 06/25/24 19:14 15 MLS/HR Sodium Chloride 10 ml QSHIFT@10,22 IV 06/17/24 22:00 06/25/24 09:59 10 ML Pantoprazole Sodium 40 mg DAILY IV 06/18/24 10:00 06/25/24 09:59 40 MG Amiodarone HCl 200 mg Q12HR PO 06/20/24 10:00 06/25/24 10:00 200 MG Dobutamine HCl/ Dextrose 250 ml @ 12.93 mls/ hr [id number] IV 06/20/24 13:00 Hold 06/21/24 05:50 12.93 MLS/HR Vasopressin 20 units/Sodium Chloride 100 ml @ 9 mls/hr Q11H7M IV 06/21/24 07:45 06/23/24 23:25 9 MLS/HR Meropenem 50 ml @ 17 mls/hr Q8HR@0000,0800,1600 IV 06/22/24 00:00 06/25/24 16:51 17 MLS/HR Linezolid 300 ml @ 150 mls/hr Q12H IV 06/24/24 12:00 06/25/24 12:26 150 MLS/HR Enteral Nutritional Formula 1,000 ml 50ML/HR GT 06/25/24 10:30 Enoxaparin Sodium 40 mg DAILY SC 06/26/24 10:00 Examination Examination General Appearance: sedated and intubated Respiratory: Clear to auscultation, Normal air movement, chest tube present right upper and lower lobe, air leak present in lower chest tube Cardiovascular: Regular rate, Normal S1, Normal S2 Abdominal: Normal bowel sounds Extremities: No cyanosis, No edema, Normal pulses, No tenderness/swelling Skin: sacral ulcer unstageable Neuro: sedated and intubation laboratory and microbiology Laboratory Tests 06/25/24 15:41 06/25/24 04:38 Test 06/25/24 04:38 Range/Units Serum Glucose 108 H 74-106 mg/dL Microbiology Date/Time Source Procedure Growth Status 06/19/24 21:00 Other Wound Gram Stain - Final Complete 06/19/24 21:00 Other Wound Anaerobic Culture - Final Complete 06/19/24 21:00 Aerobic Culture - Final Enterococcus casseliflavus Pseudomonas aeruginosa Complete 06/18/24 13:11 Blood Blood Culture - Final NO GROWTH AFTER 5 DAYS OF INCUBATION. Complete 06/17/24 08:50 Urine - Olsen [place] Urine Culture - Final Pseudomonas aeruginosa Yeast, not Radha albicans Complete 06/09/24 14:37 Bronchial Washings Gram Stain - Final Complete 06/09/24 14:37 Respiratory Culture - Final Staphylococcus aureus Pseudomonas aeruginosa Complete 06/09/24 14:30 Pleural Fluid Gram Stain - Final Complete 06/09/24 14:30 Pleural Fluid Body Fluid Culture - Final Complete Labs and/or images reviewed: Labs reviewed by me, Image(s) reviewed by me Problem List/Assessment/Plan Problem List/Assessment/Plan Assessment/Plan 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, likely chronic -seen on head CT Cardiology # shock, likely cardiogenic/septic -currently on IV norepinephrine -started on vasopressin # Acute exacerbation of HFrEF -EF <20%, last echo 03/12/24 Currently on Lasix drip started the pt on dobutamine drip, held #moderate TR -seen on echo 03/12/24 #Severe MR -seen on echo 03/12/24 #Mild aortic insufficiency with Dilated aortic root and mild av calcification -seen on echo 03/12/24 #Mod Pulmonary hypertension -seen on echo 03/12/24 #Atrial flutter, currently sinus rhythm -had sync cardioversion on 05/27/24 -currently on amiodarone drip, will switch to oral amiodarone #Non-sustained Vtach -currently on amiodarone drip, will switch to oral amiodarone #Ectatic ascending aorta. -seen on imaging Respiratory #Acute hypoxic resp failure due to CHF exacerbation/pneumonia/pulmonary embolism -on [facility] vent, intubated on 05/26/24 -reintubation on 06/12/24 due to ETT leak PLANNED FOR TRACHEOSTOMY # Acute pulmonary embolism with Right heart strain -seen on CT angio -pt was started on heparin drip, later was switched to eliquis -currently on prophylactic Lovenox, will switch to therapeutic dose after surgery, based on risk/benefit # Large right pleural effusion -s/p multiple thoracentesis -pt has currently [address] 06/16/24 shows Moderate right pleural fluid collection with near complete collapse of the right lower lobe chest tube in place within the collection. #Right lower lobe atelectasis -seen on CT #Moderate right anterior pneumothorax --pt has currently 2 chest tubes #Multiple mucus plugs -pt had multiple bronchoscopies #Pneumonia, community acquired, gram +/- -sputum culture reveals Staph aureus and Pseudomonas -IV antibiotics based on culture sensitivity # Small left anterior pneumothorax -seen on CT Monitor # Moderate left pleural fluid collection with complete collapse of the left lower lobe s/p thoracentesis -seen on CT -IV Lasix Radiology consulted for Thoracentesis, ultrasound ordered Chest USG s/p thoracentesis # left lower lobe atelectasis Seen on CT # pneumomediastinum -Small amount of pneumomediastinum, may be tracking from the bilateral pneumothoraces Nephrology # Hypernatremia -corrected # Hyperkalemia -corrected # hypokalemia Corrected # RADHA likely due to vasomotor nephropathy Monitor BMP # metabolic alkalosis with respiratory alkalosis Monitor ABG # hypophosphatemia Corrected Hematology/oncology # anemia, normocytic, severe 1 unit of PRBC transfusion Monitor # coagulopathy likely due to sepsis Monitor GI # Transaminitis likely due to sepsis -monitor # Moderate colonic diverticulosis -seen on imaging # Cholelithiasis -seen on imaging # complicated UTI -IV antibiotics based on culture -urine culture reveals Pseudomonas and Enterococcus Infectious disease #Sepsis with septic shock -IV antibiotics based on culture results -currently on norepinephrine drip and vasopressin drip Repeat blood culture and send tip culture of a line #Sacral Wound, Unstageable -likely infected -IV antibiotics -surgery consulted for Wound debridement -had wound debridement today Lines PICC line 06/17/24 Left subclavian CVC line 06/05/24, removed 06/17/24 Right femoral A-line 06/03/24, discontinued 06/24/2024 Olsen catheter 05/21/24 Drips Norepi Vasopressin fentanyl Versed Lasix drip DVT prophylaxis Lovenox PPD prophylaxis IV Protonix Nutrition Glucerna Bowel regimen Colace Code status discussed with the fiance, for >21 min : FULL CODE Critical care time excluding procedures : 67 minutes Case discussion with Dr Clayton Plan discussed with: Other My Orders My Orders Orders - FARIDA HOLT RESIDENT Procedure Category Date Status Time Chest Ultrasound US 06/25/24 Resulted 07:30 Nutritional PHA 06/25/24 In Process Supplements (Glucerna 10:30 Dietary Evaluation Review Comments: 1. consider Renal Specific 70g protein restriction witn 2GNa, 3K, low Phos, if no diaylsis needed. 2. consider Renal Standard 2gn, 3K, low phosphate diet if Pt is on dialysis. 3. encourage and monitor po intake to meet 75% of his needs. Expected Outcomes/Goals: avoid uremic symptoms, gradual healed wounds. Date of Service: Jun 25, 2024 Billing Provider: TIFFANY CLAYTON MD Common Visit Codes: [id number] CARE 30-74 MIN FARIDA HOLT RESIDENT Jun 25, 2024 20:31 TIFFANY CLAYTON MD Jun 26, 2024 16:50
[2024-06-25 20:54] LABS: Body Fluid Polymorphonuclear 96 % (0-25); Body Fluid Red Blood Cells 768272 CUMM (0-2000); Body Fluid White Blood Cells 54301 CUMM (0-200)
[2024-06-26] VITALS (102 sets, daily range): BP systolic 86–146; BP diastolic 32–54; PULSE 70–84; RESP 0–21; TEMP 97.5–99.3; O2SAT 77–100
--- NOTE | 2024-06-26 05:16 | DVH ---
CHEST RADIOGRAPH Indication: mech vent Technique: Single frontal view of the chest was obtained COMPARISON: XY CHEST PORTABLE on DOS: 06/25/24, XY CHEST PORTABLE on DOS: 06/25/24, XY CHEST PORTABLE on DOS: 06/24/24, XY CHEST PORTABLE on DOS: 06/23/24, XY CHEST XRAY 1 VIEW on DOS: 06/22/24 FINDINGS: Lines and Tubes: Endotracheal tube, enteric catheter and right chest tubes in satisfactory position. Right PICC in satisfactory position. Lungs: Multifocal airspace disease. Pleura: No effusion. Small right apical pneumothorax. Cardiomediastinal contours: Elevation of the left hemidiaphragm. Bones: Unremarkable IMPRESSION: Lines and tubes in satisfactory position. No significant interval change.
[2024-06-26 05:18] LABS: Basophils # (auto) 0.1 10 ^3/uL (0-0.2); Eosinophils # (auto) 0.2 10 ^3/uL (0-0.8); Eosinophils % (auto) 1.2 % (0.0-7.0); Hemoglobin 7.7 g/dL (13.5-17.5)
[2024-06-26 05:19] LABS: Basophils % (auto) 0.7 % (0.0-2.0); Hematocrit 23.5 % (41.0-53.0); Lymphocytes # (auto) 1.4 10 ^3/uL (0.4-5.4); Lymphocytes % (auto) 7.7 % (10.0-50.0); Mean Corpuscular Hemoglobin 27.9 pg (28.0-32.0); Mean Corpuscular Hgb Conc. 32.7 g/dL (32.0-36.0); Mean Corpuscular Volume 85.3 fL (80.0-100.0); Monocytes # (auto) 0.6 10 ^3/uL (0-1.3); Monocytes % (auto) 3.4 % (0.0-12.0); Neutrophils # (auto) 16.2 10 ^3/uL (1.6-8.6); Platelet Count (auto) 255 10^3/uL (140-450); Red Blood Cells 2.76 10^6/uL (4.5-5.90); Red Cell Distribution Width 18.8 % (11.8-14.3); White Blood Cell 18.6 10^3/uL (4.4-10.8)
[2024-06-26 05:23] LABS: Anion Gap 4 (5-15); Chloride 103 mmol/L (98-107); Potassium 3.9 mmol/L (3.5-5.1); Sodium 142 mmol/L (136-145)
[2024-06-26 05:28] LABS: Glucose 104 mg/dL (74-106)
[2024-06-26 05:29] LABS: BUN/Creatinine Ratio 49.2 (10.0-20.0); Magnesium 2.3 mg/dL (1.6-2.6)
[2024-06-26 05:33] LABS: Blood Urea Nitrogen 29 mg/dL (9-23); Carbon Dioxide 35 mmol/L (20-31)
[2024-06-26 07:59] LABS: Base Excess 9.5 mmol/L (-2.0-3.0)
[2024-06-26] MEDS: ENOXAPARIN SOD 40 MG/0.4 ML SYRINGE SC SCH (08:34)
[2024-06-26] MEDS ORDERED: ROCURONIUM 10MG/ML 10ML VIAL IV ONE (11:31)
[2024-06-26] MEDS ORDERED: GLYCOPYRROLATE 0.2 MG/ML 1ML VIAL ONE (11:31)
--- NOTE | 2024-06-26 13:26 | DVHPN2 ---
Progress Note - Dictate Date Seen: Jun 26, 2024 Medical Necessity Reason Pt with a Central, PICC or Fol: Yes The following are medically ne: Olsen Catheter Reason for olsen catheter: Strict I&O Subjective PT WITH SS COMPLEX INCRESEING SOB HARVEY LE EDEMA HFrEF CHRONIC AND ACUTE NOW WITH HEMOPTYSIS TACHYCARDIA CTA LUNG C/W PE ACUTE vital signs Vital Sign Date Time Temp Pulse Resp B/P (MAP) Pulse Ox O2 Delivery O2 Flow Rate FiO2 06/26/24 12:44 79 19 98/48 (65) 98 30 06/26/24 12:00 Mechanical Ventilator+ 06/26/24 12:00 98.0 98.0 Total Intake and Output 06/25/24 06/25/24 06/26/24 15:00 23:00 07:00 Intake Total 580.315 ml 560.252 ml 811.500 ml Output Total 850 ml 465 ml Balance 580.315 ml -289.748 ml 346.500 ml medications Current Medications Medications Dose Ordered Sig/Amy Route Start Time Stop Time Status Last Admin Dose Admin Potassium Chloride 100 ml @ 50 mls/hr Q2H IV 05/27/24 17:15 05/28/24 01:14 UNV Diagnostic Test (Pha) 1 strip Q6HR 05/30/24 18:00 06/26/24 11:44 1 STRIP Insulin Human Regular FOLLOW SLIDING SCALE Q6HR SC 05/30/24 18:00 06/24/24 01:27 2 UNITS Dextrose 50 ml UD IV 05/30/24 12:15 Acetaminophen 650 mg Q6HP PRN PO 05/31/24 19:30 06/10/24 14:37 650 MG Midazolam HCl 50 ml @ 1 mls/hr Q24H IV 06/08/24 20:15 06/26/24 10:04 9 MLS/HR Norepinephrine Bitartrate 32 mg/ Sodium Chloride 250 ml @ 0.938 mls/ hr Q24H IV 06/11/24 15:30 06/25/24 08:40 4.688 MLS/HR Potassium Chloride 100 ml @ 50 mls/hr Q2H IV 06/13/24 12:45 06/13/24 16:44 UNV Magnesium Sulfate/ Dextrose 100 ml @ 100 mls/hr Q1HR IV 06/13/24 13:00 06/13/24 14:59 UNV Cefepime HCl 50 ml @ 12.5 mls/hr Q8HR IV 06/13/24 14:00 UNV Fentanyl Citrate 250 ml @ 2.5 mls/hr Q24H IV 06/15/24 16:00 06/26/24 08:11 22.5 MLS/HR Sodium Chloride 10 ml QSHIFT@10,22 IV 06/17/24 22:00 06/26/24 08:23 10 ML Pantoprazole Sodium 40 mg DAILY IV 06/18/24 10:00 06/26/24 08:23 40 MG Amiodarone HCl 200 mg Q12HR PO 06/20/24 10:00 06/25/24 22:23 200 MG Dobutamine HCl/ Dextrose 250 ml @ 12.93 mls/ hr [id number] IV 06/20/24 13:00 Hold 06/21/24 05:50 12.93 MLS/HR Vasopressin 20 units/Sodium Chloride 100 ml @ 9 mls/hr Q11H7M IV 06/21/24 07:45 06/23/24 23:25 9 MLS/HR Meropenem 50 ml @ 17 mls/hr Q8HR@0000,0800,1600 IV 06/22/24 00:00 06/26/24 08:22 17 MLS/HR Linezolid 300 ml @ 150 mls/hr Q12H IV 06/24/24 12:00 06/26/24 11:43 150 MLS/HR Enteral Nutritional Formula 1,000 ml 50ML/HR GT 06/25/24 10:30 Enoxaparin Sodium 40 mg DAILY SC 06/26/24 10:00 objective PUL DIFF RHONCHI JVD ANGLE OF THE JAW CV RR PMI DIFFUSE EXT 3+ EDEMA laboratory and microbiology Laboratory Tests 06/26/24 04:45 Test 06/26/24 04:45 Range/Units Serum Glucose 104 74-106 mg/dL Problem List SS COMPLEX INCRESEING SOB HARVEY LE EDEMA HFrEF CHRONIC AND ACUTE EF < 20% NOW WITH HEMOPTYSIS TACHYCARDIA CTA LUNG C/W PE 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 Large filling defect right pulmonary artery consistent with pulmonary embolus. No film findings of pulmonary artery hypertension. No pulmonary emboli noted on the left. 2. Findings are also suggestive of right heart strain. 3. Large right pleural effusion. HEPARIN DRIP\ LASIX DRIP WILL START ORAL ANTICOAGULATION IN 48 HOURS ABX LE ARTERIAL DOPPLER NO SIGNIFICANT DISEASE FOR LIMB RISK DC HEPARIN START ELIQUIS S/P CT HEAD CURRENTLY ON BiPAP IMPROVING RESP STATUS 7.32/59/69 TITRATE BIPAP THORACENTESIS ULTRASOUND GUIDED MRI OF ABD S/P THORACENTESIS 2200 CC DRAINED CXR BILATERAL INFILTRATE PROMINENT MEDIASTINUM CARDIOMEGALY HYPOKALEMIA BEING CORRECTED A FLUTTER S/P CARDIOVERSION SINUS RHYTHM TITRATE OFF LEVOPHED USE ALBUMIN FOR PRESSURE SPORT DC LASIX DRIP START D5 1/4 NS AT 125 CC/HR BMP/ BNP DAILY cont volume replacement contraction alkalosis leukocytosis improved monitor h/h HYPERNATREMIA IMPROVING DIAMOX X 1 DOSE HYPERNATREMIA CORRECTED DC IV FLUID CONT TPN INCREASE VENT SETTING TO AC 22 EPISODE OF VT CORRECT ACIDOSIS MAG SO4 2 G TITRATE OFF LEVOPHED DIAMOX TREAT METABOLIC ALKALOSIS RESP ACIDOSIS START TITRATING OFF SEDATION IMPROVED RESP PARAMETERS LIVER ENZYMES STILL ELEVATED wean off sedation CORRECT HYPERNATREMIA CHECK BNP AICD IMPLANTATION PT DEVELOPED PNEUMOTHORAX DELAYING EXTUBATION PNEUMOTHORAX IMPROVED LEUKOCYTOSIS AGAIN ELECTROLYTES BETTER NOW CXR CONSISTENT WITH CHF CORRECT K AND Mg CHANGE ABX VANCO AND AZTREONAM EPOGEN IRON DC ELIQUIS START LOVENOX WBC CONTINUES TO INCREASE NEEDS SURGICAL DEBRIDEMENT OF DECUB CXR WORSENING EFFUSION AND FLUID OVERLOAD START LASIX DRIP CXR CONSISTENT WITH MULTIFOCAL CONSOLIDATION EXCELLENT DIURESIS WITH LASIX DRIP MONITOR FLUID STATUS NEEDS DEBRIDEMENT OF DECUB WITH PERSISTENT LEUKOCYTOSIS CONSIDER BRONCHOSCOPY TO CLEAR CONSOLIDATION/ MUCUS CXR WORSENING LEFT SIDED EFFUSION/ INFILTRATE LEUKOCYTOSIS WORSENING DESPITE WOUND DEBRIDEMENT RECOMMEND BRONCHOSCOPY S/P DEBRIDEMENT OF STAGE IV DECUB LEUKOCYTOSIS TRENDING DOWN CHECK CXR CHECK BNP CORRECT K PROGRESSIVE ANEMIA NEEDS ANTICOAGULATION FOR PE CONSIDER BRONCHOSCOPY WORSENING WBC IMPROVING WBC SEVERE ANEMIA START IRON WITH EPOGEN METABOLIC ALKALOSIS AGAIN DIAMOX CXR BETTER AERATION ON THE LEFT SIDED Dietary Evaluation Review Comments: 1. consider Renal Specific 70g protein restriction witn 2GNa, 3K, low Phos, if no diaylsis needed. 2. consider Renal Standard 2gn, 3K, low phosphate diet if Pt is on dialysis. 3. encourage and monitor po intake to meet 75% of his needs. Expected Outcomes/Goals: avoid uremic symptoms, gradual healed wounds. Plan discussed with: Spouse Critical Care Time(min): 35 ISSAC SHAH MD Jun 26, 2024 13:26
[2024-06-26] MEDS ORDERED: PATIENTS OWN MEDICATION (EPOGEN 10,000 UNITS) SUBCUT ONE (13:30)
--- NOTE | 2024-06-26 14:16 | DVH ---
CHEST RADIOGRAPH Indication: post tracheostomy Technique: Single frontal view of the chest was obtained COMPARISON: XY CHEST PORTABLE on DOS: 06/26/24, XY CHEST PORTABLE on DOS: 06/25/24, XY CHEST PORTABLE on DOS: 06/25/24, XY CHEST PORTABLE on DOS: 06/24/24, XY CHEST PORTABLE on DOS: 06/23/24, XY CHEST PORTABLE on DOS: 06/26/24 FINDINGS: Lines and Tubes: Tracheostomy tube, enteric catheter and right chest tubes in satisfactory position. Right PICC in satisfactory position. Lungs: Multifocal airspace disease. Pleura: No effusion. Small right apical pneumothorax. Cardiomediastinal contours: Elevation of the left hemidiaphragm. Bones: Unremarkable IMPRESSION: Lines and tubes in satisfactory position. No significant interval change.
--- NOTE | 2024-06-26 14:28 | DVHOP ---
DATE OF SURGERY: 06/26/2024 PREOPERATIVE DIAGNOSIS: Ventilator-dependent respiratory failure. POSTOPERATIVE DIAGNOSIS: Ventilator-dependent respiratory failure. SURGEON: Bhupendra Tilley MD. PATROL MAN: Joel Mendez. ANESTHESIA: General endotracheal. ANESTHESIOLOGIST: Dr. Bailon, Dr. Pawel Domínguez. PROCEDURE: Tracheostomy. DESCRIPTION OF PROCEDURE: Under general endotracheal anesthesia, with the patient's skin prepped and draped, an anterior cervical vertical incision was made. The patient's anatomy was somewhat difficult due to very large thyroid cartilage and the trachea diving deeply down into the mediastinum. The strap muscles were divided in midline and retracted laterally. The thyroid gland was retracted inferiorly. The tissues anterior to the trachea were divided with electrocautery and the second and third rings incised in a membrane. The tracheotomy was dilated in order to accommodate a size 8 tracheostomy tube. The 8 tracheostomy tube was then advanced through the tracheotomy, as the endotracheal tube was being withdrawn by the anesthesiologist. Reaching the final position, there was an immediate return to normal gas exchange and capture of CO2. The tracheostomy was secured with 2-0 Prolene sutures and circumferential umbilical tape and the cuff was insufflated with 7 mL of air. The patient remained in unchanged clinical condition at the termination of the procedure and left the operating room following an accurate needle and sponge count. Chest x-ray is ordered pending at the time of this dictation. The patient's family was thoroughly informed at #[phone]. Bhupendra Tilley MD PF/ARV TID: [id number] RECEIPT: [id number]
[2024-06-26] MEDS: acetaZOLAMIDE SODIUM 500 MG VL IV ONE (15:39)
[2024-06-26] MEDS: AMIODARONE HCL 200 MG TAB PO SCH (15:39)
[2024-06-26] MEDS: EPOETIN ALFA-EPBX 10,000 UNIT/1ML VIAL SC ONE (18:56)
--- NOTE | 2024-06-26 20:12 | DVHPNRES ---
Progress Note Date Seen: Jun 26, 2024 Resident Creating Document: FARIDA HOLT RESIDENT Medical Necessity Reason Pt with a Central, PICC or Fol: Yes The following are medically ne: Olsen Catheter Reason for olsen catheter: Strict I&O Subjective Review of Systems pt seen and examined at bedside had tracheostomy today currently on sedation and [facility] vent connected to the t tube ROS could not be done Objective vital signs Vital Sign Date Time Temp Pulse Resp B/P (MAP) Pulse Ox O2 Delivery O2 Flow Rate FiO2 06/26/24 19:00 78 17 92/42 (59) 100 113/39 (63) 06/26/24 18:32 30 06/26/24 18:00 Mechanical Ventilator+ 06/26/24 16:00 98.4 98.4 Total Intake and Output 06/25/24 06/25/24 06/26/24 15:00 23:00 07:00 Intake Total 580.315 ml 560.252 ml 811.500 ml Output Total 850 ml 465 ml Balance 580.315 ml -289.748 ml 346.500 ml medications Current Medications Medications Dose Ordered Sig/Amy Route Start Time Stop Time Status Last Admin Dose Admin Potassium Chloride 100 ml @ 50 mls/hr Q2H IV 05/27/24 17:15 05/28/24 01:14 UNV Diagnostic Test (Pha) 1 strip Q6HR 05/30/24 18:00 06/26/24 18:07 1 STRIP Insulin Human Regular FOLLOW SLIDING SCALE Q6HR SC 05/30/24 18:00 06/24/24 01:27 2 UNITS Dextrose 50 ml UD IV 05/30/24 12:15 Acetaminophen 650 mg Q6HP PRN PO 05/31/24 19:30 06/10/24 14:37 650 MG Midazolam HCl 50 ml @ 1 mls/hr Q24H IV 06/08/24 20:15 06/26/24 18:58 8 MLS/HR Norepinephrine Bitartrate 32 mg/ Sodium Chloride 250 ml @ 0.938 mls/ hr Q24H IV 06/11/24 15:30 06/26/24 15:42 4.688 MLS/HR Potassium Chloride 100 ml @ 50 mls/hr Q2H IV 06/13/24 12:45 06/13/24 16:44 UNV Magnesium Sulfate/ Dextrose 100 ml @ 100 mls/hr Q1HR IV 06/13/24 13:00 06/13/24 14:59 UNV Cefepime HCl 50 ml @ 12.5 mls/hr Q8HR IV 06/13/24 14:00 UNV Fentanyl Citrate 250 ml @ 2.5 mls/hr Q24H IV 06/15/24 16:00 06/26/24 17:02 22.5 MLS/HR Sodium Chloride 10 ml QSHIFT@10,22 IV 06/17/24 22:00 06/26/24 08:23 10 ML Pantoprazole Sodium 40 mg DAILY IV 06/18/24 10:00 06/26/24 08:23 40 MG Vasopressin 20 units/Sodium Chloride 100 ml @ 9 mls/hr Q11H7M IV 06/21/24 07:45 06/23/24 23:25 9 MLS/HR Meropenem 50 ml @ 17 mls/hr Q8HR@0000,0800,1600 IV 06/22/24 00:00 06/26/24 16:00 17 MLS/HR Linezolid 300 ml @ 150 mls/hr Q12H IV 06/24/24 12:00 06/26/24 11:43 150 MLS/HR Enteral Nutritional Formula 1,000 ml 50ML/HR GT 06/25/24 10:30 Enoxaparin Sodium 40 mg DAILY SC 06/26/24 10:00 Amiodarone HCl 200 mg DAILY PO 06/26/24 13:30 06/26/24 15:39 200 MG Iron Sucrose 110 ml @ 110 mls/hr DAILY@1200 IV 06/27/24 12:00 07/01/24 12:59 Examination Examination General Appearance: sedated and t-tube connected to the [facility] vent Respiratory: Clear to auscultation, Normal air movement, chest tube present right upper and lower lobe, air leak present in lower chest tube Cardiovascular: Regular rate, Normal S1, Normal S2 Abdominal: Normal bowel sounds Extremities: No cyanosis, No edema, Normal pulses, No tenderness/swelling Skin: sacral ulcer unstageable Neuro: sedated and t-tube connected to the [facility] vent laboratory and microbiology Laboratory Tests 06/26/24 04:45 Test 06/26/24 04:45 Range/Units Serum Glucose 104 74-106 mg/dL Microbiology Date/Time Source Procedure Growth Status 06/25/24 14:45 Pleural Fluid Gram Stain - Final Resulted 06/25/24 14:45 Pleural Fluid Body Fluid Culture Pending Resulted 06/25/24 06:40 Urine - Olsen Port Urine Culture - Preliminary Resulted 06/25/24 06:35 Sputum Gram Stain - Final Resulted 06/25/24 06:35 Sputum Respiratory Culture - Preliminary Resulted 06/24/24 20:21 Blood Blood Culture - Preliminary NO GROWTH AFTER 24 HOURS OF INCUBATION. 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, likely chronic -seen on head CT Cardiology # shock, likely cardiogenic/septic -currently on IV norepinephrine -started on vasopressin # Acute exacerbation of HFrEF -EF <20%, last echo 03/12/24 Currently on Lasix drip, held started the pt on dobutamine drip, held #moderate TR -seen on echo 03/12/24 #Severe MR -seen on echo 03/12/24 #Mild aortic insufficiency with Dilated aortic root and mild av calcification -seen on echo 03/12/24 #Mod Pulmonary hypertension -seen on echo 03/12/24 #Atrial flutter, currently sinus rhythm -had sync cardioversion on 05/27/24 -currently on amiodarone drip, will switch to oral amiodarone #Non-sustained Vtach -currently on amiodarone drip, will switch to oral amiodarone #Ectatic ascending aorta. -seen on imaging Respiratory #Acute hypoxic resp failure due to CHF exacerbation/pneumonia/pulmonary embolism -on [facility] vent, intubated on 05/26/24 -reintubation on 06/12/24 due to ETT leak -extubated 06/26/24 -tracheostomy tube placed 06/26/24 # Acute pulmonary embolism with Right heart strain -seen on CT angio -pt was started on heparin drip, later was switched to eliquis -currently on prophylactic Lovenox, will switch to therapeutic dose after surgery, based on risk/benefit # Large right pleural effusion -s/p multiple thoracentesis -pt has currently [address] 06/16/24 shows Moderate right pleural fluid collection with near complete collapse of the right lower lobe chest tube in place within the collection. #Right lower lobe atelectasis -seen on CT #Moderate right anterior pneumothorax --pt has currently 2 chest tubes #Multiple mucus plugs -pt had multiple bronchoscopies #Pneumonia, community acquired, gram +/- -sputum culture reveals Staph aureus and Pseudomonas -IV antibiotics based on culture sensitivity # Small left anterior pneumothorax -seen on CT Monitor # Moderate left pleural fluid collection with complete collapse of the left lower lobe s/p thoracentesis -seen on CT -IV Lasix Radiology consulted for Thoracentesis, ultrasound ordered Chest USG s/p thoracentesis # left lower lobe atelectasis Seen on CT # pneumomediastinum -Small amount of pneumomediastinum, may be tracking from the bilateral pneumothoraces Nephrology # Hypernatremia -corrected # Hyperkalemia -corrected # hypokalemia Corrected # RADHA likely due to vasomotor nephropathy Monitor BMP # metabolic alkalosis with respiratory alkalosis Monitor ABG # hypophosphatemia Corrected Hematology/oncology # anemia, normocytic, severe 1 unit of PRBC transfusion Monitor # coagulopathy likely due to sepsis Monitor GI # Transaminitis likely due to sepsis -monitor # Moderate colonic diverticulosis -seen on imaging # Cholelithiasis -seen on imaging # complicated UTI -IV antibiotics based on culture -urine culture reveals Pseudomonas and Enterococcus Infectious disease #Sepsis with septic shock -IV antibiotics based on culture results -currently on norepinephrine drip and vasopressin drip Repeat blood culture and send tip culture of a line #Sacral Wound, Unstageable -likely infected -IV antibiotics -surgery consulted for Wound debridement -had wound debridement today Lines PICC line 06/17/24 Left subclavian CVC line 06/05/24, removed 06/17/24 Right femoral A-line 06/03/24, discontinued 06/24/2024 Olsen catheter 05/21/24 right Arterial line 06/26/23 Drips Norepi Vasopressin fentanyl Versed DVT prophylaxis Lovenox PPD prophylaxis IV Protonix Nutrition Glucerna Bowel regimen Colace had tracheostomy done today CT chest AM Code status discussed with the fiance, for >21 min : FULL CODE Critical care time excluding procedures : 63 minutes Case discussion with Dr Clayton Plan discussed with: Other My Orders My Orders Orders - FARIDA HOLT RESIDENT Procedure Category Date Status Time Chest Portable XY 06/26/24 Resulted 04:00 Abg W/ Co-Ox RT 06/26/24 Logged 04:00 Dietary Evaluation Review Comments: 1. consider Renal Specific 70g protein restriction witn 2GNa, 3K, low Phos, if no diaylsis needed. 2. consider Renal Standard 2gn, 3K, low phosphate diet if Pt is on dialysis. 3. encourage and monitor po intake to meet 75% of his needs. Expected Outcomes/Goals: avoid uremic symptoms, gradual healed wounds. Date of Service: Jun 26, 2024 Billing Provider: TIFFANY CLAYTON MD Common Visit Codes: [id number] CARE 30-74 MIN FARIDA HOLT RESIDENT Jun 26, 2024 20:12 TIFFANY CLAYTON MD Jun 27, 2024 12:34
[2024-06-27] VITALS (102 sets, daily range): BP systolic 72–134; BP diastolic 30–55; PULSE 72–91; RESP 8–29; TEMP 98–99.3; O2SAT 97–100
[2024-06-27 05:43] LABS: Basophils # (auto) 0.1 10 ^3/uL (0-0.2); Basophils % (auto) 0.8 % (0.0-2.0); Eosinophils # (auto) 0.1 10 ^3/uL (0-0.8); Hematocrit 23.2 % (41.0-53.0); Hemoglobin 7.5 g/dL (13.5-17.5); Lymphocytes # (auto) 1.2 10 ^3/uL (0.4-5.4); Lymphocytes % (auto) 9.5 % (10.0-50.0); Mean Corpuscular Hemoglobin 27.8 pg (28.0-32.0); Mean Corpuscular Hgb Conc. 32.4 g/dL (32.0-36.0); Mean Corpuscular Volume 85.6 fL (80.0-100.0); Monocytes # (auto) 0.5 10 ^3/uL (0-1.3); Neutrophils # (auto) 11.1 10 ^3/uL (1.6-8.6); Neutrophils % (auto) 84.7 % (37.0-80.0); Nucleated Red Blood Cells % 0.2 %; Platelet Count (auto) 236 10^3/uL (140-450); Red Blood Cells 2.71 10^6/uL (4.5-5.90); Red Cell Distribution Width 18.8 % (11.8-14.3)
[2024-06-27 06:55] LABS: Alanine Aminotransferase 37 U/L (7-40); Anion Gap 9 (5-15); Blood Urea Nitrogen 22 mg/dL (9-23); Carbon Dioxide 26 mmol/L (20-31); Chloride 106 mmol/L (98-107); Glucose 100 mg/dL (74-106); Magnesium 2.3 mg/dL (1.6-2.6); Sodium 141 mmol/L (136-145)
[2024-06-27 06:56] LABS: Albumin 1.9 g/dL (3.2-4.8); Alkaline Phosphatase 322 U/L (46-116); Aspartate Aminotransferase 51 U/L (13-40); Bilirubin, Total 1.8 mg/dL (0.2-1.0); Total Protein 5.4 g/dL (5.7-8.2)
--- NOTE | 2024-06-27 09:18 | DVHPN2 ---
Progress Note - Dictate Date Seen: Jun 27, 2024 Medical Necessity Reason Pt with a Central, PICC or Fol: Yes The following are medically ne: Olsen Catheter Reason for olsen catheter: Strict I&O Subjective PT WITH SS COMPLEX INCRESEING SOB HARVEY LE EDEMA HFrEF CHRONIC AND ACUTE NOW WITH HEMOPTYSIS TACHYCARDIA CTA LUNG C/W PE ACUTE vital signs Vital Sign Date Time Temp Pulse Resp B/P (MAP) Pulse Ox O2 Delivery O2 Flow Rate FiO2 06/27/24 08:22 79 16 115/38 (63) 100 30 06/27/24 08:00 99.2 99.2 06/27/24 08:00 Mechanical Ventilator+ Total Intake and Output 06/26/24 06/26/24 06/27/24 15:00 23:00 07:00 Intake Total 647.063 ml 397.504 ml 646.004 ml Output Total 1180 ml 1250 ml Balance 647.063 ml -782.496 ml -603.996 ml medications Current Medications Medications Dose Ordered Sig/Amy Route Start Time Stop Time Status Last Admin Dose Admin Potassium Chloride 100 ml @ 50 mls/hr Q2H IV 05/27/24 17:15 05/28/24 01:14 UNV Diagnostic Test (Pha) 1 strip Q6HR 05/30/24 18:00 06/27/24 05:53 1 STRIP Insulin Human Regular FOLLOW SLIDING SCALE Q6HR SC 05/30/24 18:00 06/24/24 01:27 2 UNITS Dextrose 50 ml UD IV 05/30/24 12:15 Acetaminophen 650 mg Q6HP PRN PO 05/31/24 19:30 06/10/24 14:37 650 MG Midazolam HCl 50 ml @ 1 mls/hr Q24H IV 06/08/24 20:15 06/27/24 08:50 3 MLS/HR Norepinephrine Bitartrate 32 mg/ Sodium Chloride 250 ml @ 0.938 mls/ hr Q24H IV 06/11/24 15:30 06/26/24 15:42 4.688 MLS/HR Potassium Chloride 100 ml @ 50 mls/hr Q2H IV 06/13/24 12:45 06/13/24 16:44 UNV Magnesium Sulfate/ Dextrose 100 ml @ 100 mls/hr Q1HR IV 06/13/24 13:00 06/13/24 14:59 UNV Cefepime HCl 50 ml @ 12.5 mls/hr Q8HR IV 06/13/24 14:00 UNV Fentanyl Citrate 250 ml @ 2.5 mls/hr Q24H IV 06/15/24 16:00 06/27/24 03:44 17.5 MLS/HR Sodium Chloride 10 ml QSHIFT@10,22 IV 06/17/24 22:00 06/26/24 21:40 10 ML Pantoprazole Sodium 40 mg DAILY IV 06/18/24 10:00 06/26/24 08:23 40 MG Vasopressin 20 units/Sodium Chloride 100 ml @ 9 mls/hr Q11H7M IV 06/21/24 07:45 06/23/24 23:25 9 MLS/HR Meropenem 50 ml @ 17 mls/hr Q8HR@0000,0800,1600 IV 06/22/24 00:00 06/27/24 08:15 17 MLS/HR Linezolid 300 ml @ 150 mls/hr Q12H IV 06/24/24 12:00 06/26/24 23:27 150 MLS/HR Enteral Nutritional Formula 1,000 ml 50ML/HR GT 06/25/24 10:30 Enoxaparin Sodium 40 mg DAILY SC 06/26/24 10:00 Amiodarone HCl 200 mg DAILY PO 06/26/24 13:30 06/26/24 15:39 200 MG objective PUL DIFF RHONCHI JVD ANGLE OF THE JAW CV RR PMI DIFFUSE EXT 3+ EDEMA laboratory and microbiology Laboratory Tests 06/27/24 04:48 Test 06/27/24 04:48 Range/Units Serum Glucose 100 74-106 mg/dL Problem List SS COMPLEX INCRESEING SOB HARVEY LE EDEMA HFrEF CHRONIC AND ACUTE EF < 20% NOW WITH HEMOPTYSIS TACHYCARDIA CTA LUNG C/W PE 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 Large filling defect right pulmonary artery consistent with pulmonary embolus. No film findings of pulmonary artery hypertension. No pulmonary emboli noted on the left. 2. Findings are also suggestive of right heart strain. 3. Large right pleural effusion. HEPARIN DRIP\ LASIX DRIP WILL START ORAL ANTICOAGULATION IN 48 HOURS ABX LE ARTERIAL DOPPLER NO SIGNIFICANT DISEASE FOR LIMB RISK DC HEPARIN START ELIQUIS S/P CT HEAD CURRENTLY ON BiPAP IMPROVING RESP STATUS 7.32/69 TITRATE BIPAP THORACENTESIS ULTRASOUND GUIDED MRI OF ABD S/P THORACENTESIS 2200 CC DRAINED CXR BILATERAL INFILTRATE PROMINENT MEDIASTINUM CARDIOMEGALY HYPOKALEMIA BEING CORRECTED A FLUTTER S/P CARDIOVERSION SINUS RHYTHM TITRATE OFF LEVOPHED USE ALBUMIN FOR PRESSURE SPORT DC LASIX DRIP START D5 1/4 NS AT 125 CC/HR BMP/ BNP DAILY cont volume replacement contraction alkalosis leukocytosis improved monitor h/h HYPERNATREMIA IMPROVING DIAMOX X 1 DOSE HYPERNATREMIA CORRECTED DC IV FLUID CONT TPN INCREASE VENT SETTING TO AC 22 EPISODE OF [place] CORRECT ACIDOSIS MAG SO4 2 G TITRATE OFF LEVOPHED DIAMOX TREAT METABOLIC ALKALOSIS RESP ACIDOSIS START TITRATING OFF SEDATION IMPROVED RESP PARAMETERS LIVER ENZYMES STILL ELEVATED wean off sedation CORRECT HYPERNATREMIA CHECK BNP AICD IMPLANTATION PT DEVELOPED PNEUMOTHORAX DELAYING EXTUBATION PNEUMOTHORAX IMPROVED LEUKOCYTOSIS AGAIN ELECTROLYTES BETTER NOW CXR CONSISTENT WITH CHF CORRECT K AND Mg CHANGE ABX VANCO AND AZTREONAM EPOGEN IRON DC ELIQUIS START LOVENOX WBC CONTINUES TO INCREASE NEEDS SURGICAL DEBRIDEMENT OF DECUB CXR WORSENING EFFUSION AND FLUID OVERLOAD START LASIX DRIP CXR CONSISTENT WITH MULTIFOCAL CONSOLIDATION EXCELLENT DIURESIS WITH LASIX DRIP MONITOR FLUID STATUS NEEDS DEBRIDEMENT OF DECUB WITH PERSISTENT LEUKOCYTOSIS CONSIDER BRONCHOSCOPY TO CLEAR CONSOLIDATION/ MUCUS CXR WORSENING LEFT SIDED EFFUSION/ INFILTRATE LEUKOCYTOSIS WORSENING DESPITE WOUND DEBRIDEMENT RECOMMEND BRONCHOSCOPY S/P DEBRIDEMENT OF STAGE IV DECUB LEUKOCYTOSIS TRENDING DOWN CHECK CXR CHECK BNP CORRECT K PROGRESSIVE ANEMIA NEEDS ANTICOAGULATION FOR PE CONSIDER BRONCHOSCOPY WORSENING WBC IMPROVING WBC SEVERE ANEMIA START IRON WITH EPOGEN METABOLIC ALKALOSIS AGAIN DIAMOX CXR BETTER AERATION ON THE LEFT SIDED ONE DOSE OF IRON GIVEN ONE DOSE OF EPOGEN LEUKOCYTOSIS IMPROVING CHECK UA DIAMOX FOR WORSENING METABOLIC ALKALOSIS DECREASE REP RATE FOR RESP ALKALOSIS IRON STUDY FROM 06/21/24 LOW SERUM IRON LOW TIBC FERRITIN HIGH SECONDARY TO BEING ACUTE PHASE REACTANT Dietary Evaluation Review Comments: 1. consider Renal Specific 70g protein restriction witn 2GNa, 3K, low Phos, if no diaylsis needed. 2. consider Renal Standard 2gn, 3K, low phosphate diet if Pt is on dialysis. 3. encourage and monitor po intake to meet 75% of his needs. Expected Outcomes/Goals: avoid uremic symptoms, gradual healed wounds. Plan discussed with: Spouse Critical Care Time(min): 35 ISSAC SHAH MD Jun 27, 2024 09:18
--- NOTE | 2024-06-27 11:01 | DVHPN2 ---
Progress Note Date Seen: Jun 27, 2024 Medical Necessity Reason Pt with a Central, PICC or Fol: Yes The following are medically ne: Olsen Catheter Reason for olsen catheter: Strict I&O Objective vital signs Vital Sign Date Time Temp Pulse Resp B/P (MAP) Pulse Ox O2 Delivery O2 Flow Rate FiO2 06/27/24 10:51 99.3 80 12 113/37 (62) 98 99.3 06/27/24 10:00 30 06/27/24 10:00 Mechanical Ventilator+ Total Intake and Output 06/26/24 06/26/24 06/27/24 15:00 23:00 07:00 Intake Total 647.063 ml 397.504 ml 646.004 ml Output Total 1180 ml 1250 ml Balance 647.063 ml -782.496 ml -603.996 ml medications Current Medications Medications Dose Ordered Sig/Amy Route Start Time Stop Time Status Last Admin Dose Admin Potassium Chloride 100 ml @ 50 mls/hr Q2H IV 05/27/24 17:15 05/28/24 01:14 UNV Diagnostic Test (Pha) 1 strip Q6HR 05/30/24 18:00 06/27/24 05:53 1 STRIP Insulin Human Regular FOLLOW SLIDING SCALE Q6HR SC 05/30/24 18:00 06/24/24 01:27 2 UNITS Dextrose 50 ml UD IV 05/30/24 12:15 Acetaminophen 650 mg Q6HP PRN PO 05/31/24 19:30 06/10/24 14:37 650 MG Midazolam HCl 50 ml @ 1 mls/hr Q24H IV 06/08/24 20:15 06/27/24 08:50 3 MLS/HR Norepinephrine Bitartrate 32 mg/ Sodium Chloride 250 ml @ 0.938 mls/ hr Q24H IV 06/11/24 15:30 06/26/24 15:42 4.688 MLS/HR Potassium Chloride 100 ml @ 50 mls/hr Q2H IV 06/13/24 12:45 06/13/24 16:44 UNV Magnesium Sulfate/ Dextrose 100 ml @ 100 mls/hr Q1HR IV 06/13/24 13:00 06/13/24 14:59 UNV Cefepime HCl 50 ml @ 12.5 mls/hr Q8HR IV 06/13/24 14:00 UNV Fentanyl Citrate 250 ml @ 2.5 mls/hr Q24H IV 06/15/24 16:00 06/27/24 03:44 17.5 MLS/HR Sodium Chloride 10 ml QSHIFT@10,22 IV 06/17/24 22:00 06/27/24 09:42 10 ML Pantoprazole Sodium 40 mg DAILY IV 06/18/24 10:00 06/27/24 09:42 40 MG Vasopressin 20 units/Sodium Chloride 100 ml @ 9 mls/hr Q11H7M IV 06/21/24 07:45 06/23/24 23:25 9 MLS/HR Meropenem 50 ml @ 17 mls/hr Q8HR@0000,0800,1600 IV 06/22/24 00:00 06/27/24 08:15 17 MLS/HR Linezolid 300 ml @ 150 mls/hr Q12H IV 06/24/24 12:00 06/26/24 23:27 150 MLS/HR Enteral Nutritional Formula 1,000 ml 50ML/HR GT 06/25/24 10:30 Enoxaparin Sodium 40 mg DAILY SC 06/26/24 10:00 06/27/24 09:42 40 MG Amiodarone HCl 200 mg DAILY PO 06/26/24 13:30 06/27/24 09:42 200 MG laboratory and microbiology Laboratory Tests 06/27/24 04:48 Test 06/27/24 04:48 Range/Units Serum Glucose 100 74-106 mg/dL Problem List/Assessment/Plan Problem List/Assessment/Plan 06/19/24 notified by nurses that they are unable to obtain a consent from family. As debridement does not constitute a surgical emergency I will post pone an operation until an appropriate consent is obtained, please notify me when consent accomplished 06/27/24 TRACHEOSTOMY OK,no problems reported, cxr stable .will sign off please recall if needed Plan discussed with: Other Dietary Evaluation Review Comments: 1. consider Renal Specific 70g protein restriction witn 2GNa, 3K, low Phos, if no diaylsis needed. 2. consider Renal Standard 2gn, 3K, low phosphate diet if Pt is on dialysis. 3. encourage and monitor po intake to meet 75% of his needs. Expected Outcomes/Goals: avoid uremic symptoms, gradual healed wounds. JIHAN HENDERSON MD Jun 27, 2024 11:01
[2024-06-27] MEDS ORDERED: IRON SUCROSE COMPLEX 110 ML IV SCH (12:00)
[2024-06-27 12:06] LABS: Protein, Body Fluid 4.6 g/dL (.)
--- NOTE | 2024-06-27 12:14 | MEDREC ---
[facility] ASP Intervention Section I [facility] ASP Intervention: Review courses of therapy (THE PRELIMINARY URINE CULTURE SHOWED YEAST, NOT MAME ALBICANS. PLEASE CONSIDER ADDING AN ANTIFUNGAL IF CLINICALLY APPROPRIATE) JOE MIRELES Jun 27, 2024 12:14
--- NOTE | 2024-06-27 12:29 | DVH ---
Procedure: CT CHEST WITHOUT CONTRAST Reason for study/Clinical History: SOB Comparison Study: None available at time of dictation. Exam Date: 06/27/2024 11:08 AM TECHNIQUE: Multidetector CT of the chest was performed from the lung apices to the upper abdomen with out the use of intravenous contract. Axial, coronal and sagittal multiplanar reformats were performed . Radiation Dose Information: CT Dose: CTDI volume is 12.22 mGy. Dose-length product is 496.16 mGy*cm The dose indicators for CT are the volume Computed Tomography (CT) Dose Index (CTDIvol) and the Dose Length Product (DLP), and are measured in units of mGy and mGy-cm, respectively. These indicators are not patient dose, but values generated from the CT scanner acquisition factors. The report includes radiation exposure data for exposures received during this examination. FINDINGS: Lower neck: Tracheostomy in satisfactory position. Lungs: Bilateral lower lobe compressive atelectasis. Heart/Vascular Structures: Cardiomegaly. Coronary artery calcifications. Vascular calcifications of t he aorta. Lymph Nodes: No adenopathy Pleura: Small right hydropneumothorax with chest tube in-situ. Moderate left pleural effusion. Possible chronically under expanded left lung (trapped lung) versus l oculated pneumothorax. Musculoskeletal: No acute osseous abnormality. Soft tissues: Normal. Upper abdomen: Enteric catheter in the stomach. Mildly nodular hepatic contours may represent changes of cirrhosis. IMPRESSION: Limited examination secondary to patient motion artifact. Small right hydro pneumothorax with right chest tube in-situ. Moderate left pleural effusion. Possible chronically under expanded left lung (trapped lung) versus l oculated pneumothorax. Radiation optimization: All CT scans at this facility use at least one of these dose optimization carol hniques: automated exposure control mA and/or kV adjustment per patient size (includes targeted exam s where dose is matched to clinical indication) or iterative reconstruction.
[2024-06-27 15:06] LABS: Basophils # (auto) 0.1 10 ^3/uL (0-0.2); Eosinophils # (auto) 0.2 10 ^3/uL (0-0.8); Eosinophils % (auto) 1.6 % (0.0-7.0); Hematocrit 23.7 % (41.0-53.0); Hemoglobin 7.5 g/dL (13.5-17.5); Lymphocytes # (auto) 1.2 10 ^3/uL (0.4-5.4); Lymphocytes % (auto) 10.4 % (10.0-50.0); Mean Corpuscular Hemoglobin 27.8 pg (28.0-32.0); Mean Corpuscular Hgb Conc. 31.8 g/dL (32.0-36.0); Mean Corpuscular Volume 87.6 fL (80.0-100.0); Monocytes # (auto) 0.4 10 ^3/uL (0-1.3); Monocytes % (auto) 3.5 % (0.0-12.0); Neutrophils # (auto) 9.7 10 ^3/uL (1.6-8.6); Neutrophils % (auto) 83.5 % (37.0-80.0); Nucleated Red Blood Cells % 0.1 %; Platelet Count (auto) 218 10^3/uL (140-450); Red Cell Distribution Width 19.5 % (11.8-14.3); White Blood Cell 11.6 10^3/uL (4.4-10.8)
--- NOTE | 2024-06-27 18:00 | DVH ---
CHEST RADIOGRAPH Indication: CHEST TUBE POSSIBLE AIR LEAK Technique: Single frontal view of the chest was obtained Comparison: XY CHEST PORTABLE on DOS: 06/26/24, XY CHEST PORTABLE on DOS: 06/26/24, XY CHEST PORTABLE on DOS: 06/25/[address] examination of the chest May 19, 2024 FINDINGS: Patient has cardiomegaly bilateral pleural effusions and probable loculated pneumothorax involving th e right costophrenic angle. There also may be a bulla involving the superior segment of the lower lob e. Patient has a pigtail catheter in the right apex. In prior CT examination patient had a large consolidate involving the right lower lobe and cardiomega ly. There is tracheostomy tube in good position and there is a nasogastric tube in the stomach. IMPRESSION: 1. Possible bulla or pneumothorax right costophrenic angle and possible bulla involving the left lowe r lobe superior segment. Follow-up CT examination of the chest is suggested
--- NOTE | 2024-06-27 21:24 | DVHPNRES ---
Progress Note Date Seen: Jun 27, 2024 Resident Creating Document: FARIDA HOLT RESIDENT Medical Necessity Reason Pt with a Central, PICC or Fol: Yes The following are medically ne: Olsen Catheter Reason for olsen catheter: Strict I&O Subjective Review of Systems pt seen and examined at bedside had tracheostomy yesterday [facility] ROS could not be done PLANNED FOR left sided thoracotomy AM Objective vital signs Vital Sign Date Time Temp Pulse Resp B/P (MAP) Pulse Ox O2 Delivery O2 Flow Rate FiO2 06/27/24 20:16 87 20 100/35 (56) 100 30 06/27/24 18:33 Mechanical Ventilator 06/27/24 16:00 98.3 98.3 Total Intake and Output 06/26/24 06/26/24 06/27/24 15:00 23:00 07:00 Intake Total 647.063 ml 397.504 ml 646.004 ml Output Total 1180 ml 1250 ml Balance 647.063 ml -782.496 ml -603.996 ml medications Current Medications Medications Dose Ordered Sig/Amy Route Start Time Stop Time Status Last Admin Dose Admin Potassium Chloride 100 ml @ 50 mls/hr Q2H IV 05/27/24 17:15 05/28/24 01:14 UNV Diagnostic Test (Pha) 1 strip Q6HR 05/30/24 18:00 06/27/24 18:00 1 STRIP Insulin Human Regular FOLLOW SLIDING SCALE Q6HR SC 05/30/24 18:00 06/24/24 01:27 2 UNITS Dextrose 50 ml UD IV 05/30/24 12:15 Acetaminophen 650 mg Q6HP PRN PO 05/31/24 19:30 06/10/24 14:37 650 MG Midazolam HCl 50 ml @ 1 mls/hr Q24H IV 06/08/24 20:15 06/27/24 08:50 3 MLS/HR Norepinephrine Bitartrate 32 mg/ Sodium Chloride 250 ml @ 0.938 mls/ hr Q24H IV 06/11/24 15:30 06/26/24 15:42 4.688 MLS/HR Potassium Chloride 100 ml @ 50 mls/hr Q2H IV 06/13/24 12:45 06/13/24 16:44 UNV Magnesium Sulfate/ Dextrose 100 ml @ 100 mls/hr Q1HR IV 06/13/24 13:00 06/13/24 14:59 UNV Cefepime HCl 50 ml @ 12.5 mls/hr Q8HR IV 06/13/24 14:00 UNV Fentanyl Citrate 250 ml @ 2.5 mls/hr Q24H IV 06/15/24 16:00 06/27/24 03:44 17.5 MLS/HR Sodium Chloride 10 ml QSHIFT@10,22 IV 06/17/24 22:00 06/27/24 09:42 10 ML Pantoprazole Sodium 40 mg DAILY IV 06/18/24 10:00 06/27/24 09:42 40 MG Vasopressin 20 units/Sodium Chloride 100 ml @ 9 mls/hr Q11H7M IV 06/21/24 07:45 06/23/24 23:25 9 MLS/HR Meropenem 50 ml @ 17 mls/hr Q8HR@0000,0800,1600 IV 06/22/24 00:00 06/27/24 17:55 17 MLS/HR Linezolid 300 ml @ 150 mls/hr Q12H IV 06/24/24 12:00 06/27/24 12:29 150 MLS/HR Enteral Nutritional Formula 1,000 ml 50ML/HR GT 06/25/24 10:30 Enoxaparin Sodium 40 mg DAILY SC 06/26/24 10:00 06/27/24 09:42 40 MG Amiodarone HCl 200 mg DAILY PO 06/26/24 13:30 06/27/24 09:42 200 MG Micafungin Sodium 100 mg/Sodium Chloride 100 ml @ 100 mls/hr DAILY IV 06/28/24 10:00 UNV Examination Examination General Appearance: sedated and t-tube connected to the [facility] vent Respiratory: Clear to auscultation, Normal air movement, chest tube present right upper and lower lobe, air leak present in lower chest tube Cardiovascular: Regular rate, Normal S1, Normal S2 Abdominal: Normal bowel sounds Extremities: No cyanosis, No edema, Normal pulses, No tenderness/swelling Skin: sacral ulcer unstageable Neuro: sedated and t-tube connected to the [facility] vent laboratory and microbiology Laboratory Tests 06/27/24 14:41 06/27/24 04:48 Test 06/27/24 04:48 Range/Units Serum Glucose 100 74-106 mg/dL Microbiology Date/Time Source Procedure Growth Status 06/25/24 14:45 Pleural Fluid Gram Stain - Final Resulted 06/25/24 14:45 Pleural Fluid Body Fluid Culture - Preliminary Resulted 06/25/24 06:40 Urine - Olsen Port Urine Culture - Preliminary Yeast, not Radha albicans Resulted 06/25/24 06:35 Sputum Gram Stain - Final Resulted 06/25/24 06:35 Sputum Respiratory Culture - Preliminary Resulted 06/24/24 20:21 Blood Blood Culture - Preliminary NO GROWTH AFTER 72 HOURS OF INCUBATION. 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, likely chronic -seen on head CT Cardiology # shock, likely cardiogenic/septic -currently on IV norepinephrine -started on vasopressin -IV micafungin # Acute exacerbation of HFrEF -EF <20%, last echo 03/12/24 Currently on Lasix drip, held started the pt on dobutamine drip, held #moderate TR -seen on echo 03/12/24 #Severe MR -seen on echo 03/12/24 #Mild aortic insufficiency with Dilated aortic root and mild av calcification -seen on echo 03/12/24 #Mod Pulmonary hypertension -seen on echo 03/12/24 #Atrial flutter, currently sinus rhythm -had sync cardioversion on 05/27/24 -currently on amiodarone drip, will switch to oral amiodarone #Non-sustained Vtach -currently on amiodarone drip, will switch to oral amiodarone #Ectatic ascending aorta. -seen on imaging Respiratory #Acute hypoxic resp failure due to CHF exacerbation/pneumonia/pulmonary embolism -on [facility] vent, intubated on 05/26/24 -reintubation on 06/12/24 due to ETT leak -extubated 06/26/24 -tracheostomy tube placed 06/26/24 # Acute pulmonary embolism with Right heart strain -seen on CT angio -pt was started on heparin drip, later was switched to eliquis -currently on prophylactic Lovenox, will switch to therapeutic dose after surgery, based on risk/benefit # Large right pleural effusion -s/p multiple thoracentesis -pt has currently [address] 06/16/24 shows Moderate right pleural fluid collection with near complete collapse of the right lower lobe chest tube in place within the collection. #Right lower lobe atelectasis -seen on CT #Moderate right anterior pneumothorax --pt has currently 2 chest tubes #Multiple mucus plugs -pt had multiple bronchoscopies #Pneumonia, community acquired, gram +/- -sputum culture reveals Staph aureus and Pseudomonas -IV antibiotics based on culture sensitivity # Small left anterior pneumothorax -seen on CT Monitor # Moderate left pleural fluid collection with complete collapse of the left lower lobe s/p thoracentesis -seen on CT -IV Lasix Radiology consulted for Thoracentesis, ultrasound ordered Chest USG s/p thoracentesis # left lower lobe atelectasis Seen on CT # pneumomediastinum -Small amount of pneumomediastinum, may be tracking from the bilateral pneumothoraces Nephrology # Hypernatremia -corrected # Hyperkalemia -corrected # hypokalemia Corrected # RADHA likely due to vasomotor nephropathy Monitor BMP # metabolic alkalosis with respiratory alkalosis Monitor ABG # hypophosphatemia Corrected Hematology/oncology # anemia, normocytic, severe 1 unit of PRBC transfusion Monitor # coagulopathy likely due to sepsis Monitor GI # Transaminitis likely due to sepsis -monitor # Moderate colonic diverticulosis -seen on imaging # Cholelithiasis -seen on imaging # complicated UTI -IV antibiotics based on culture -urine culture reveals Pseudomonas and Enterococcus -IV micafungin Infectious disease #Sepsis with septic shock -IV antibiotics based on culture results -currently on norepinephrine drip and vasopressin drip Repeat blood culture and send tip culture of a line #Sacral Wound, Unstageable -likely infected -IV antibiotics -surgery consulted for Wound debridement -had wound debridement today Lines PICC line 06/17/24 Left subclavian CVC line 06/05/24, removed 06/17/24 Right femoral A-line 06/03/24, discontinued 06/24/2024 Olsen catheter 05/21/24 right Arterial line 06/26/23 Drips Norepi Vasopressin fentanyl Versed DVT prophylaxis Lovenox PPD prophylaxis IV Protonix Nutrition Glucerna Bowel regimen Colace had tracheostomy done yesterday CT chest AM Code status discussed with the fiance, for >21 min : FULL CODE Critical care time excluding procedures : 61 minutes Case discussion with Dr Clayton Plan discussed with: Patient, Other My Orders My Orders Orders - FARIDA HOLT RESIDENT Procedure Category Date Status Time Ventilator Orders RT 06/27/24 Transmitted 09:18 Communication Order ORDERS 06/27/24 Transmitted 15:15 Chest Portable XY 06/27/24 Resulted 17:33 Micafungin Sodium PHA 06/27/24 Logged (Mycamine) 21:30 Micafungin Sodium PHA 06/28/24 Logged (Mycamine) 10:00 Complete Blood Count LAB 06/28/24 Verified 04:00 Basic Metabolic Panel LAB 06/28/24 Verified 04:00 Magnesium LAB 06/28/24 Verified 04:00 Chest Portable XY 06/28/24 Logged 04:00 Abg W/ Co-Ox RT 06/28/24 Logged 04:00 Dietary Evaluation Review Comments: 1. consider Renal Specific 70g protein restriction witn 2GNa, 3K, low Phos, if no diaylsis needed. 2. consider Renal Standard 2gn, 3K, low phosphate diet if Pt is on dialysis. 3. encourage and monitor po intake to meet 75% of his needs. Expected Outcomes/Goals: avoid uremic symptoms, gradual healed wounds. Date of Service: Jun 27, 2024 Billing Provider: TIFFANY CLAYTON MD Common Visit Codes: [id number] CARE 30-74 MIN FARIDA HOLT Jun 27, 2024 21:24 TIFFANY CLAYTON MD Jun 30, 2024 13:09
[2024-06-27] MEDS: MICAFUNGIN SODIUM 100 MG in SODIUM CHL 0.9% 100 ML IV ONE (21:30)
[2024-06-27] MEDS: MICAFUNGIN SODIUM 100 MG in SODIUM CHL 0.9% 100 ML IV SCH (22:00)
[2024-06-28] VITALS (63 sets, daily range): BP systolic 94–234; BP diastolic 29–145; PULSE 78–100; RESP 9–30; TEMP 97.4–99.6; O2SAT 87–100
[2024-06-28 05:35] LABS: Basophils # (auto) 0.1 10 ^3/uL (0-0.2); Basophils % (auto) 0.8 % (0.0-2.0); Eosinophils # (auto) 0.1 10 ^3/uL (0-0.8); Eosinophils % (auto) 0.9 % (0.0-7.0); Hematocrit 21.6 % (41.0-53.0); Lymphocytes # (auto) 1.3 10 ^3/uL (0.4-5.4); Lymphocytes % (auto) 12.7 % (10.0-50.0); Mean Corpuscular Hemoglobin 27.7 pg (28.0-32.0); Mean Corpuscular Hgb Conc. 32.5 g/dL (32.0-36.0); Mean Corpuscular Volume 85.4 fL (80.0-100.0); Monocytes # (auto) 0.5 10 ^3/uL (0-1.3); Monocytes % (auto) 4.6 % (0.0-12.0); Nucleated Red Blood Cells % 0.1 %; Platelet Count (auto) 203 10^3/uL (140-450); Red Blood Cells 2.53 10^6/uL (4.5-5.90); Red Cell Distribution Width 18.9 % (11.8-14.3); White Blood Cell 9.9 10^3/uL (4.4-10.8)
--- NOTE | 2024-06-28 05:41 | DVH ---
CHEST RADIOGRAPH Indication: mech vent Technique: Single frontal view of the chest was obtained COMPARISON: XY CHEST PORTABLE on DOS: 06/27/24, XY CHEST PORTABLE on DOS: 06/26/24, XY CHEST PORTABLE on DOS: 06/26/24, XY CHEST PORTABLE on DOS: 06/25/24, XY CHEST PORTABLE on DOS: 06/25/24 FINDINGS: Lines and Tubes: Tracheostomy, enteric catheter and right chest tube in satisfactory position. Lungs: Multifocal airspace disease. Pleura: No effusion. Small right apical pneumothorax. Unchanged possible loculated left pneumothorax versus chronically en trapped lung. Cardiomediastinal contours: Cardiomegaly Bones: Unremarkable IMPRESSION: Lines and tubes in satisfactory position. No significant interval change.
[2024-06-28 05:45] LABS: Chloride 105 mmol/L (98-107); Potassium 3.7 mmol/L (3.5-5.1); Sodium 141 mmol/L (136-145)
[2024-06-28 05:46] LABS: Anion Gap 7 (5-15); Carbon Dioxide 29 mmol/L (20-31)
[2024-06-28 05:48] LABS: INR 1.08 (0.9-1.15); Partial Thromboplastin Time 28.2 SEC (24.5-34.5); Prothrombin Time 11.4 sec (9.3-11.8)
[2024-06-28 05:51] LABS: Glucose 104 mg/dL (74-106)
[2024-06-28 05:52] LABS: BUN/Creatinine Ratio 38.6 (10.0-20.0); Blood Urea Nitrogen 27 mg/dL (9-23); Calcium 7.9 mg/dL (8.7-10.4); Magnesium 2.3 mg/dL (1.6-2.6)
--- NOTE | 2024-06-28 07:34 | DVHPN2 ---
Progress Note - Dictate Date Seen: Jun 28, 2024 Medical Necessity Reason Pt with a Central, PICC or Fol: Yes The following are medically ne: Olsen Catheter Reason for olsen catheter: Strict I&O Subjective PT WITH SS COMPLEX INCRESEING SOB HARVEY LE EDEMA HFrEF CHRONIC AND ACUTE NOW WITH HEMOPTYSIS TACHYCARDIA CTA LUNG C/W PE ACUTE vital signs Vital Sign Date Time Temp Pulse Resp B/P (MAP) Pulse Ox O2 Delivery O2 Flow Rate FiO2 06/28/24 07:08 90 27 128/45 (72) 100 30 06/28/24 06:00 Mechanical Ventilator+ 06/28/24 06:00 99.6 99.6 Total Intake and Output 06/27/24 06/27/24 06/28/24 15:00 23:00 07:00 Intake Total 134.065 ml 596.566 ml 675.066 ml Output Total 1280 ml 670 ml Balance 134.065 ml -683.434 ml 5.066 ml medications Current Medications Medications Dose Ordered Sig/Amy Route Start Time Stop Time Status Last Admin Dose Admin Potassium Chloride 100 ml @ 50 mls/hr Q2H IV 05/27/24 17:15 05/28/24 01:14 UNV Diagnostic Test (Pha) 1 strip Q6HR 05/30/24 18:00 06/28/24 06:00 1 STRIP Insulin Human Regular FOLLOW SLIDING SCALE Q6HR SC 05/30/24 18:00 06/24/24 01:27 2 UNITS Dextrose 50 ml UD IV 05/30/24 12:15 Acetaminophen 650 mg Q6HP PRN PO 05/31/24 19:30 06/10/24 14:37 650 MG Midazolam HCl 50 ml @ 1 mls/hr Q24H IV 06/08/24 20:15 06/27/24 08:50 3 MLS/HR Norepinephrine Bitartrate 32 mg/ Sodium Chloride 250 ml @ 0.938 mls/ hr Q24H IV 06/11/24 15:30 06/26/24 15:42 4.688 MLS/HR Potassium Chloride 100 ml @ 50 mls/hr Q2H IV 06/13/24 12:45 06/13/24 16:44 UNV Magnesium Sulfate/ Dextrose 100 ml @ 100 mls/hr Q1HR IV 06/13/24 13:00 06/13/24 14:59 UNV Cefepime HCl 50 ml @ 12.5 mls/hr Q8HR IV 06/13/24 14:00 UNV Fentanyl Citrate 250 ml @ 2.5 mls/hr Q24H IV 06/15/24 16:00 06/27/24 03:44 17.5 MLS/HR Sodium Chloride 10 ml QSHIFT@10,22 IV 06/17/24 22:00 06/27/24 22:00 10 ML Pantoprazole Sodium 40 mg DAILY IV 06/18/24 10:00 06/27/24 09:42 40 MG Vasopressin 20 units/Sodium Chloride 100 ml @ 9 mls/hr Q11H7M IV 06/21/24 07:45 06/23/24 23:25 9 MLS/HR Meropenem 50 ml @ 17 mls/hr Q8HR@0000,0800,1600 IV 06/22/24 00:00 06/27/24 23:57 17 MLS/HR Linezolid 300 ml @ 150 mls/hr Q12H IV 06/24/24 12:00 06/27/24 23:57 150 MLS/HR Enteral Nutritional Formula 1,000 ml 50ML/HR GT 06/25/24 10:30 Enoxaparin Sodium 40 mg DAILY SC 06/26/24 10:00 06/27/24 09:42 40 MG Amiodarone HCl 200 mg DAILY PO 06/26/24 13:30 06/27/24 09:42 200 MG Micafungin Sodium 100 mg/Sodium Chloride 100 ml @ 100 mls/hr DAILY IV 06/28/24 10:00 06/27/24 22:00 100 MLS/HR objective PUL DIFF RHONCHI JVD ANGLE OF THE JAW CV RR PMI DIFFUSE EXT 3+ EDEMA laboratory and microbiology Laboratory Tests 06/28/24 05:16 Test 06/28/24 05:16 Range/Units Serum Glucose 104 74-106 mg/dL Problem List SS COMPLEX INCRESEING SOB HARVEY LE EDEMA HFrEF CHRONIC AND ACUTE EF < 20% NOW WITH HEMOPTYSIS TACHYCARDIA CTA LUNG C/W PE 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 Large filling defect right pulmonary artery consistent with pulmonary embolus. No film findings of pulmonary artery hypertension. No pulmonary emboli noted on the left. 2. Findings are also suggestive of right heart strain. 3. Large right pleural effusion. HEPARIN DRIP\ LASIX DRIP WILL START ORAL ANTICOAGULATION IN 48 HOURS ABX LE ARTERIAL DOPPLER NO SIGNIFICANT DISEASE FOR LIMB RISK DC HEPARIN START ELIQUIS S/P CT HEAD CURRENTLY ON BiPAP IMPROVING RESP STATUS 7.32/59/69 TITRATE BIPAP THORACENTESIS ULTRASOUND GUIDED MRI OF ABD S/P THORACENTESIS 2200 CC DRAINED CXR BILATERAL INFILTRATE PROMINENT MEDIASTINUM CARDIOMEGALY HYPOKALEMIA BEING CORRECTED A FLUTTER S/P CARDIOVERSION SINUS RHYTHM TITRATE OFF LEVOPHED USE ALBUMIN FOR PRESSURE SPORT DC LASIX DRIP START D5 1/4 NS AT 125 CC/HR BMP/ BNP DAILY cont volume replacement contraction alkalosis leukocytosis improved monitor h/h HYPERNATREMIA IMPROVING DIAMOX X 1 DOSE HYPERNATREMIA CORRECTED DC IV FLUID CONT TPN INCREASE VENT SETTING TO AC 22 EPISODE OF VT CORRECT ACIDOSIS MAG SO4 2 G TITRATE OFF LEVOPHED DIAMOX TREAT METABOLIC ALKALOSIS RESP ACIDOSIS START TITRATING OFF SEDATION IMPROVED RESP PARAMETERS LIVER ENZYMES STILL ELEVATED wean off sedation CORRECT HYPERNATREMIA CHECK BNP AICD IMPLANTATION PT DEVELOPED PNEUMOTHORAX DELAYING EXTUBATION PNEUMOTHORAX IMPROVED LEUKOCYTOSIS AGAIN ELECTROLYTES BETTER NOW CXR CONSISTENT WITH CHF CORRECT K AND Mg CHANGE ABX VANCO AND AZTREONAM EPOGEN IRON DC ELIQUIS START LOVENOX WBC CONTINUES TO INCREASE NEEDS SURGICAL DEBRIDEMENT OF DECUB CXR WORSENING EFFUSION AND FLUID OVERLOAD START LASIX DRIP CXR CONSISTENT WITH MULTIFOCAL CONSOLIDATION EXCELLENT DIURESIS WITH LASIX DRIP MONITOR FLUID STATUS NEEDS DEBRIDEMENT OF DECUB WITH PERSISTENT LEUKOCYTOSIS CONSIDER BRONCHOSCOPY TO CLEAR CONSOLIDATION/ MUCUS CXR WORSENING LEFT SIDED EFFUSION/ INFILTRATE LEUKOCYTOSIS WORSENING DESPITE WOUND DEBRIDEMENT RECOMMEND BRONCHOSCOPY S/P DEBRIDEMENT OF STAGE IV DECUB WOUND POSITIVE FOR PSEUDOMONAS/ ENTEROCOCCUS URINE YEAST LEUKOCYTOSIS TRENDING DOWN CHECK CXR CHECK BNP CORRECT K PROGRESSIVE ANEMIA NEEDS ANTICOAGULATION FOR PE CONSIDER BRONCHOSCOPY WORSENING WBC IMPROVING WBC SEVERE ANEMIA START IRON WITH EPOGEN METABOLIC ALKALOSIS AGAIN DIAMOX CXR BETTER AERATION ON THE LEFT SIDED ONE DOSE OF IRON GIVEN ONE DOSE OF EPOGEN LEUKOCYTOSIS IMPROVING CHECK UA DIAMOX FOR WORSENING METABOLIC ALKALOSIS DECREASE REP RATE FOR RESP ALKALOSIS IRON STUDY FROM 06/21/24 LOW SERUM IRON LOW TIBC FERRITIN HIGH SECONDARY TO BEING ACUTE PHASE REACTANT S/P TRACHEOSTOMY NOW PT REQUIRES 2 UNITS OF PRBC CHECK UA CBC IN AM BNP IN AM ABG Dietary Evaluation Review Comments: 1. consider Renal Specific 70g protein restriction witn 2GNa, 3K, low Phos, if no diaylsis needed. 2. consider Renal Standard 2gn, 3K, low phosphate diet if Pt is on dialysis. 3. encourage and monitor po intake to meet 75% of his needs. Expected Outcomes/Goals: avoid uremic symptoms, gradual healed wounds. Plan discussed with: Spouse Critical Care Time(min): 35 ISSAC SHAH MD Jun 28, 2024 07:34
[2024-06-28 08:12] LABS: Base Excess 7.6 mmol/L (-2.0-3.0)
[2024-06-28] MEDS ORDERED: fentaNYL CITRATE 100 MCG/2 ML VL ONE ×2 (09:50→10:01)
[2024-06-28] MEDS ORDERED: ROCURONIUM 10MG/ML 10ML VIAL IV ONE (10:57)
[2024-06-28] MEDS: BUPIVACAINE 0.5% P/F INJ 10 ML VIAL ONE (11:03)
[2024-06-28] MEDS: LIDOCAINE W/ EPINEPHRINE 1% 20ML VIAL ONE (11:03)
--- NOTE | 2024-06-28 11:41 | DVHOP ---
DATE OF SURGERY: 06/28/2024 PREOPERATIVE DIAGNOSES: Empyema, left chest with lung compression. POSTOPERATIVE DIAGNOSES: Empyema, left chest with lung compression. Bullous emphysema, left lung, empyema and pleural peel. DESCRIPTION OF PROCEDURE: Under general anesthesia with the patient placed on the operating room table with the left chest facing upward, the down axilla protected on an axillary roll, and the knees and elbows on pillows and protected, the left chest was prepped and draped and a left posterolateral thoracotomy was accomplished through the fifth interspace. The lung cavity was then entered. It contained a collapsed lung with evidence of purulence in the inferior and posterior aspect of the cavity. Cultures were obtained and submitted. Decortication was done to the best of my ability, attempting to avoid injury to the lung tissue itself. Subsequently, the chest cavity was irrigated with warm saline, hemostasis was accomplished and a size 40 chest tube was placed through a separate incision in the anterolateral chest wall, secured with a 0 suture. The tube was directed posterosuperiorly and connected to Pleur-evac. Subsequently, following complete hemostasis, the rib cage was approximated using [id number] [place] sutures. Skin was approximated using metallic skin abiodun. The patient remained in unchanged clinical condition at the termination of the procedure, left the operating room following an accurate needle and sponge count. Chest x-ray is ordered and pending at the time of this dictation. There were no family members in the waiting room. MD ALVIN Irvin/DANIELLE TID: [id number] RECEIPT: [id number]
--- NOTE | 2024-06-28 12:43 | DVH ---
CHEST RADIOGRAPH Indication: post s/p left thoracotomy and lung decortication Technique: Single frontal view of the chest was obtained COMPARISON: XY CHEST PORTABLE on DOS: 06/28/24, XY CHEST PORTABLE on DOS: 06/27/24, XY CHEST PORTABLE on DOS: 06/26/24, XY CHEST PORTABLE on DOS: 06/26/24, XY CHEST PORTABLE on DOS: 06/25/24 FINDINGS: Lines and Tubes: Tracheostomy right PICC, right chest tubes and newly placed left chest tube in [employer] positions. Lungs: Multifocal airspace disease. Pleura: Grossly unchanged bilateral pneumothorax. No pneumothorax. Cardiomediastinal contours: Cardiomegaly. Subcutaneous emphysema along the left chest wall. Bones: Unremarkable IMPRESSION: Interval placement of left chest tube.
[2024-06-28 15:25] LABS: Alanine Aminotransferase 37 U/L (7-40); Anion Gap 8 (5-15); BUN/Creatinine Ratio 42.6 (10.0-20.0); Carbon Dioxide 28 mmol/L (20-31); Chloride 107 mmol/L (98-107); Magnesium 2.3 mg/dL (1.6-2.6); Potassium 3.8 mmol/L (3.5-5.1); Sodium 143 mmol/L (136-145)
[2024-06-28 15:27] LABS: Albumin 1.8 g/dL (3.2-4.8); Alkaline Phosphatase 317 U/L (46-116); Aspartate Aminotransferase 47 U/L (13-40); Bilirubin, Total 1.9 mg/dL (0.2-1.0); Blood Urea Nitrogen 29 mg/dL (9-23); Calcium 7.5 mg/dL (8.7-10.4); Glucose 112 mg/dL (74-106)
[2024-06-28 16:21] LABS: Basophils # (auto) 0 10 ^3/uL (0-0.2); Basophils % (auto) 0.3 % (0.0-2.0); Eosinophils # (auto) 0 10 ^3/uL (0-0.8); Eosinophils % (auto) 0.2 % (0.0-7.0); Hematocrit 23.4 % (41.0-53.0); Hemoglobin 7.8 g/dL (13.5-17.5); Lymphocytes # (auto) 0.8 10 ^3/uL (0.4-5.4); Lymphocytes % (auto) 7.4 % (10.0-50.0); Mean Corpuscular Hemoglobin 29.2 pg (28.0-32.0); Mean Corpuscular Hgb Conc. 33.3 g/dL (32.0-36.0); Mean Corpuscular Volume 87.9 fL (80.0-100.0); Monocytes # (auto) 0.6 10 ^3/uL (0-1.3); Monocytes % (auto) 4.9 % (0.0-12.0); Neutrophils # (auto) 9.9 10 ^3/uL (1.6-8.6); Neutrophils % (auto) 87.2 % (37.0-80.0); Nucleated Red Blood Cells % 0.2 %; Platelet Count (auto) 176 10^3/uL (140-450); Red Blood Cells 2.67 10^6/uL (4.5-5.90); White Blood Cell 11.4 10^3/uL (4.4-10.8)
[2024-06-28] MEDS: FUROSEMIDE 20 MG/2 ML VIAL IV ONE (17:30)
--- NOTE | 2024-06-28 21:48 | DVHPNRES ---
Progress Note Date Seen: Jun 28, 2024 Resident Creating Document: FARIDA HOLT RESIDENT Medical Necessity Reason Pt with a Central, PICC or Fol: Yes The following are medically ne: Olsen Catheter Reason for olsen catheter: Strict I&O Subjective Review of Systems pt seen and examined at bedside had tracheostomy done currently on sedation and [facility] vent connected to the t tube ROS could not be done had left sided thoracotomy done today Objective vital signs Vital Sign Date Time Temp Pulse Resp B/P (MAP) Pulse Ox O2 Delivery O2 Flow Rate FiO2 06/28/24 20:20 81 25 111/35 (60) 95 30 06/28/24 20:00 97.6 97.6 06/28/24 18:32 Mechanical Ventilator+ Total Intake and Output 06/27/24 06/27/24 06/28/24 15:00 23:00 07:00 Intake Total 134.065 ml 596.566 ml 678.504 ml Output Total 1280 ml 670 ml Balance 134.065 ml -683.434 ml 8.504 ml medications Current Medications Medications Dose Ordered Sig/Amy Route Start Time Stop Time Status Last Admin Dose Admin Potassium Chloride 100 ml @ 50 mls/hr Q2H IV 05/27/24 17:15 05/28/24 01:14 UNV Diagnostic Test (Pha) 1 strip Q6HR 05/30/24 18:00 06/28/24 17:27 1 STRIP Insulin Human Regular FOLLOW SLIDING SCALE Q6HR SC 05/30/24 18:00 06/24/24 01:27 2 UNITS Dextrose 50 ml UD IV 05/30/24 12:15 Acetaminophen 650 mg Q6HP PRN PO 05/31/24 19:30 06/10/24 14:37 650 MG Midazolam HCl 50 ml @ 1 mls/hr Q24H IV 06/08/24 20:15 06/27/24 08:50 3 MLS/HR Norepinephrine Bitartrate 32 mg/ Sodium Chloride 250 ml @ 0.938 mls/ hr Q24H IV 06/11/24 15:30 06/26/24 15:42 4.688 MLS/HR Potassium Chloride 100 ml @ 50 mls/hr Q2H IV 06/13/24 12:45 06/13/24 16:44 UNV Magnesium Sulfate/ Dextrose 100 ml @ 100 mls/hr Q1HR IV 06/13/24 13:00 06/13/24 14:59 UNV Cefepime HCl 50 ml @ 12.5 mls/hr Q8HR IV 06/13/24 14:00 UNV Fentanyl Citrate 250 ml @ 2.5 mls/hr Q24H IV 06/15/24 16:00 06/27/24 03:44 17.5 MLS/HR Sodium Chloride 10 ml QSHIFT@10,22 IV 06/17/24 22:00 06/27/24 22:00 10 ML Pantoprazole Sodium 40 mg DAILY IV 06/18/24 10:00 06/27/24 09:42 40 MG Vasopressin 20 units/Sodium Chloride 100 ml @ 9 mls/hr Q11H7M IV 06/21/24 07:45 06/23/24 23:25 9 MLS/HR Meropenem 50 ml @ 17 mls/hr Q8HR@0000,0800,1600 IV 06/22/24 00:00 06/28/24 17:34 17 MLS/HR Linezolid 300 ml @ 150 mls/hr Q12H IV 06/24/24 12:00 06/28/24 12:00 150 MLS/HR Enteral Nutritional Formula 1,000 ml 50ML/HR GT 06/25/24 10:30 Enoxaparin Sodium 40 mg DAILY SC 06/26/24 10:00 06/27/24 09:42 40 MG Amiodarone HCl 200 mg DAILY PO 06/26/24 13:30 06/28/24 10:00 200 MG Micafungin Sodium 100 mg/Sodium Chloride 100 ml @ 100 mls/hr DAILY IV 06/28/24 10:00 06/27/24 22:00 100 MLS/HR Examination Examination General Appearance: sedated and t-tube connected to the [facility] vent Respiratory: Clear to auscultation, Normal air movement, chest tube present right upper and lower lobe, air leak present in lower chest tube chest tube present left sided Cardiovascular: Regular rate, Normal S1, Normal S2 Abdominal: Normal bowel sounds Extremities: No cyanosis, No edema, Normal pulses, No tenderness/swelling Skin: sacral ulcer unstageable Neuro: sedated and t-tube connected to the [facility] vent laboratory and microbiology Laboratory Tests 06/28/24 14:58 Test 06/28/24 14:58 Range/Units Serum Glucose 112 H 74-106 mg/dL Microbiology Date/Time Source Procedure Growth Status 06/25/24 14:45 Pleural Fluid Gram Stain - Final Complete 06/25/24 14:45 Body Fluid Culture - Final Pseudomonas aeruginosa Complete 06/25/24 06:40 Urine - Olsen [place] Urine Culture - Final Yeast, not Radha albicans Complete 06/25/24 06:35 Sputum Gram Stain - Final Resulted 06/25/24 06:35 Sputum Respiratory Culture - Preliminary Resulted 06/24/24 20:21 Blood Blood Culture - Preliminary NO GROWTH AFTER 72 HOURS OF INCUBATION. 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, likely chronic -seen on head CT Cardiology # shock, likely cardiogenic/septic -currently on IV norepinephrine -started on vasopressin -IV micafungin # Acute exacerbation of HFrEF -EF <20%, last echo 03/12/24 Currently on Lasix drip, held started the pt on dobutamine drip, held #moderate TR -seen on echo 03/12/24 #Severe MR -seen on echo 03/12/24 #Mild aortic insufficiency with Dilated aortic root and mild av calcification -seen on echo 03/12/24 #Mod Pulmonary hypertension -seen on echo 03/12/24 #Atrial flutter, currently sinus rhythm -had sync cardioversion on 05/27/24 -currently on amiodarone drip, will switch to oral amiodarone #Non-sustained Vtach -currently on amiodarone drip, will switch to oral amiodarone #Ectatic ascending aorta. -seen on imaging Respiratory #Acute hypoxic resp failure due to CHF exacerbation/pneumonia/pulmonary embolism -on [facility] vent, intubated on 05/26/24 -reintubation on 06/12/24 due to ETT leak -extubated 06/26/24 -tracheostomy tube placed 06/26/24 # Acute pulmonary embolism with Right heart strain -seen on CT angio -pt was started on heparin drip, later was switched to eliquis -currently on prophylactic Lovenox, will switch to therapeutic dose after surgery, based on risk/benefit # Large right pleural effusion -s/p multiple thoracentesis -pt has currently [address] 06/16/24 shows Moderate right pleural fluid collection with near complete collapse of the right lower lobe chest tube in place within the collection. #Right lower lobe atelectasis -seen on CT #Moderate right anterior pneumothorax --pt has currently 2 chest tubes #Multiple mucus plugs -pt had multiple bronchoscopies #Pneumonia, community acquired, gram +/- -sputum culture reveals Staph aureus and Pseudomonas -IV antibiotics based on culture sensitivity # Small left anterior pneumothorax -seen on CT Monitor # Moderate left pleural fluid collection with complete collapse of the left lower lobe s/p thoracentesis -seen on CT -IV Lasix Radiology consulted for Thoracentesis, ultrasound ordered Chest USG s/p thoracentesis s/p thoracotomy and chest tube placemetn # left lower lobe atelectasis Seen on CT # pneumomediastinum -Small amount of pneumomediastinum, may be tracking from the bilateral pneumothoraces Nephrology # Hypernatremia -corrected # Hyperkalemia -corrected # hypokalemia Corrected # RADHA likely due to vasomotor nephropathy Monitor BMP # metabolic alkalosis with respiratory alkalosis Monitor ABG # hypophosphatemia Corrected Hematology/oncology # anemia, normocytic, severe 1 unit of PRBC transfusion Monitor # coagulopathy likely due to sepsis Monitor GI # Transaminitis likely due to sepsis -monitor # Moderate colonic diverticulosis -seen on imaging # Cholelithiasis -seen on imaging # complicated UTI -IV antibiotics based on culture -urine culture reveals Pseudomonas and Enterococcus -IV micafungin Infectious disease #Sepsis with septic shock -IV antibiotics based on culture results -currently on norepinephrine drip and vasopressin drip Repeat blood culture and send tip culture of a line #Sacral Wound, Unstageable -likely infected -IV antibiotics -surgery consulted for Wound debridement -had wound debridement today Lines PICC line 06/17/24 Left subclavian CVC line 06/05/24, removed 06/17/24 Right femoral A-line 06/03/24, discontinued 06/24/2024 Olsen catheter 05/21/24 right Arterial line 06/26/23 Drips Norepi Vasopressin fentanyl Versed DVT prophylaxis Lovenox PPD prophylaxis IV Protonix Nutrition Glucerna Bowel regimen Colace Code status discussed with the fiance, for >21 min : FULL CODE Critical care time excluding procedures : 61 minutes Case discussion with Dr Abbasi Plan discussed with: Other My Orders My Orders Orders - FARIDA HOLT Procedure Category Date Status Time Insert Rectal Tube ORDERS 06/28/24 Transmitted 17:18 Dietary Evaluation Review Comments: 1. consider Renal Specific 70g protein restriction witn 2GNa, 3K, low Phos, if no diaylsis needed. 2. consider Renal Standard 2gn, 3K, low phosphate diet if Pt is on dialysis. 3. encourage and monitor po intake to meet 75% of his needs. Expected Outcomes/Goals: avoid uremic symptoms, gradual healed wounds. FARIDA HOLT RESIDENT Jun 28, 2024 21:48
--- NOTE | 2024-06-28 23:03 | DVHTSRES ---
Transfer Summary Transfer Summary Resident Creating Document: FARIDA HOLT RESIDENT Date of Admission May 18, 2024 at 23:22 Brief Hx & Hospital Course: 64-year-old male patient with past medical history of CHF with ejection fraction less than 20% presented with complaint of shortness of breath, lower extremity edema, dyspnea on exertion, hemoptysis. CT angio revealed pulmonary embolism after which patient was started on heparin drip. Patient was also started on Lasix drip for CHF exacerbation. Patient had bilateral pleural effusion, after which patient had multiple thoracentesis. Patient also had multiple bronchoscopies for mucus plugs. Patient was started on IV antibiotics. Patient was switched to Eliquis. Later patient was found to have a bilateral pneumothorax, patient had chest tube placement on the right side of the lung later pigtail catheter was inserted. Patient had sepsis due to pneumonia. Patient also had unstageable sacral ulcer. Surgery was consulted and patient had debridement of the sacral ulcers and cultures were sent CT the head revealed encephalomalacia in the left frontoparietal region 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 likely chronic. Patient was started on IV norepinephrine and vasopressin for hypotension. Echo revealed ejection fraction less than 20%, moderate TR, severe MR, mild aortic insufficiency with dilated aortic root and mild AV calcification and moderate pulmonary hypertension. Patient had episode of atrial flutter for which patient had synchronized cardioversion on 05/27/2024. And was started on IV amiodarone. Patient was reintubated again on 06/12/2024 due to ETT leak. Later Eliquis was switched to Lovenox by the locomotive boilermaker. Hypernatremia, hypokalemia, hypokalemia were corrected. Patient had RADHA due to vasomotor nephropathy. For patient's anemia, 1 unit of PRBC was transfused. Patient has transaminitis likely due to sepsis, imaging revealed moderate colonic diverticulosis and cholelithiasis. Urine culture grew Pseudomonas and Enterococcus after which patient was started on IV linezolid and meropenem. Patient was started on dopamine after which patient blood pressure dropped and was discontinued. Patient later had tracheostomy on 06/26/2024. Surgery was consulted for thoracotomy. Patient had thoracotomy done on the left side and chest tube was placed. Patient's white cell count resolved to within normal limits. At the time of transfer, patient was tracheostomy tube and is connected to mechanical ventilator, patient is currently on norepinephrine drip for hypotension, is on sedative, has two chest tubes in the right side and one chest tube on the left side. Care will be transferred to the upcoming ICU team including Dr Treadwell, Dr Lopez and Dr Chamberlain Transfer to: FARIDA Boateng RESIDENT Jun 28, 2024 23:03
[2024-06-29] VITALS (110 sets, daily range): BP systolic 89–141; BP diastolic 28–50; PULSE 74–95; RESP 10–31; TEMP 97.6–100.3; O2SAT 95–100
--- NOTE | 2024-06-29 05:30 | DVH ---
CHEST RADIOGRAPH Indication: mech vent Technique: Single frontal view of the chest was obtained Comparison: XY CHEST PORTABLE on DOS: 06/28/24, XY CHEST PORTABLE on DOS: 06/28/24, XY CHEST PORTABLE on DOS: 06/27/24 IMPRESSION: The heart is enlarged, similar to prior examination. Support lines and tubes appear similar in positi on. Right pneumothorax has improved with small basilar and right apical component. Left pneumothorax has improved with moderate left lateral and basilar component. There is subcutaneous emphysema along the left chest wall.
[2024-06-29 05:44] LABS: Basophils # (auto) 0.1 10 ^3/uL (0-0.2); Basophils % (auto) 0.6 % (0.0-2.0); Eosinophils # (auto) 0.1 10 ^3/uL (0-0.8); Eosinophils % (auto) 0.7 % (0.0-7.0); Lymphocytes # (auto) 1.3 10 ^3/uL (0.4-5.4); White Blood Cell 10.3 10^3/uL (4.4-10.8)
[2024-06-29 05:47] LABS: Hematocrit 23.8 % (41.0-53.0); Hemoglobin 8.3 g/dL (13.5-17.5); Lymphocytes % (auto) 12.2 % (10.0-50.0); Mean Corpuscular Hemoglobin 29.6 pg (28.0-32.0); Mean Corpuscular Hgb Conc. 34.8 g/dL (32.0-36.0); Monocytes # (auto) 0.4 10 ^3/uL (0-1.3); Monocytes % (auto) 4.2 % (0.0-12.0); Neutrophils # (auto) 8.5 10 ^3/uL (1.6-8.6); Neutrophils % (auto) 82.3 % (37.0-80.0); Nucleated Red Blood Cells % 0.2 %; Platelet Count (auto) 167 10^3/uL (140-450); Red Blood Cells 2.79 10^6/uL (4.5-5.90); Red Cell Distribution Width 17.1 % (11.8-14.3)
[2024-06-29 06:02] LABS: Alanine Aminotransferase 31 U/L (7-40); Anion Gap 9 (5-15); Aspartate Aminotransferase 39 U/L (13-40); Carbon Dioxide 26 mmol/L (20-31); Glucose 91 mg/dL (74-106); Magnesium 2.2 mg/dL (1.6-2.6); Potassium 3.6 mmol/L (3.5-5.1); Sodium 143 mmol/L (136-145)
[2024-06-29 06:03] LABS: Alkaline Phosphatase 264 U/L (46-116); Bilirubin, Total 1.9 mg/dL (0.2-1.0); Blood Urea Nitrogen 26 mg/dL (9-23); Calcium 7.9 mg/dL (8.7-10.4); Chloride 108 mmol/L (98-107); Total Protein 5.1 g/dL (5.7-8.2)
[2024-06-29 06:44] LABS: Base Excess 1.1 mmol/L (-2.0-3.0)
[2024-06-29] MEDS: POVIDONE IODINE 10 % TOPICAL OINT 30GM TOP ONE (08:21)
--- NOTE | 2024-06-29 10:18 | DVHPN2 ---
Progress Note Date Seen: Jun 29, 2024 Medical Necessity Reason Pt with a Central, PICC or Fol: Yes The following are medically ne: Olsen Catheter Reason for olsen catheter: Strict I&O Objective vital signs Vital Sign Date Time Temp Pulse Resp B/P (MAP) Pulse Ox O2 Delivery O2 Flow Rate FiO2 06/29/24 09:15 82 22 122/34 (63) 100 06/29/24 08:15 30 06/29/24 08:00 99.0 99.0 06/29/24 07:30 Mechanical Ventilator+ Total Intake and Output 06/28/24 06/28/24 06/29/24 14:59 22:59 06:59 Intake Total 399.814 ml 180.0 ml 1010.0 ml Output Total 1225 ml 700 ml Balance 399.814 ml -1045.0 ml 310.0 ml medications Current Medications Medications Dose Ordered Sig/Amy Route Start Time Stop Time Status Last Admin Dose Admin Potassium Chloride 100 ml @ 50 mls/hr Q2H IV 05/27/24 17:15 05/28/24 01:14 UNV Diagnostic Test (Pha) 1 strip Q6HR 05/30/24 18:00 06/29/24 05:43 1 STRIP Insulin Human Regular FOLLOW SLIDING SCALE Q6HR SC 05/30/24 18:00 06/24/24 01:27 2 UNITS Dextrose 50 ml UD IV 05/30/24 12:15 Acetaminophen 650 mg Q6HP PRN PO 05/31/24 19:30 06/10/24 14:37 650 MG Midazolam HCl 50 ml @ 1 mls/hr Q24H IV 06/08/24 20:15 06/27/24 08:50 3 MLS/HR Norepinephrine Bitartrate 32 mg/ Sodium Chloride 250 ml @ 0.938 mls/ hr Q24H IV 06/11/24 15:30 06/26/24 15:42 4.688 MLS/HR Potassium Chloride 100 ml @ 50 mls/hr Q2H IV 06/13/24 12:45 06/13/24 16:44 UNV Magnesium Sulfate/ Dextrose 100 ml @ 100 mls/hr Q1HR IV 06/13/24 13:00 06/13/24 14:59 UNV Cefepime HCl 50 ml @ 12.5 mls/hr Q8HR IV 06/13/24 14:00 UNV Fentanyl Citrate 250 ml @ 2.5 mls/hr Q24H IV 06/15/24 16:00 06/27/24 03:44 17.5 MLS/HR Sodium Chloride 10 ml QSHIFT@10,22 IV 06/17/24 22:00 06/29/24 09:01 10 ML Pantoprazole Sodium 40 mg DAILY IV 06/18/24 10:00 06/29/24 09:01 40 MG Vasopressin 20 units/Sodium Chloride 100 ml @ 9 mls/hr Q11H7M IV 06/21/24 07:45 06/23/24 23:25 9 MLS/HR Meropenem 50 ml @ 17 mls/hr Q8HR@0000,0800,1600 IV 06/22/24 00:00 06/29/24 08:04 17 MLS/HR Linezolid 300 ml @ 150 mls/hr Q12H IV 06/24/24 12:00 06/29/24 00:06 150 MLS/HR Enteral Nutritional Formula 1,000 ml 50ML/HR GT 06/25/24 10:30 Enoxaparin Sodium 40 mg DAILY SC 06/26/24 10:00 06/29/24 09:02 40 MG Amiodarone HCl 200 mg DAILY PO 06/26/24 13:30 06/29/24 09:01 200 MG Micafungin Sodium 100 mg/Sodium Chloride 100 ml @ 100 mls/hr DAILY IV 06/28/24 10:00 06/29/24 08:04 100 MLS/HR laboratory and microbiology Laboratory Tests 06/29/24 05:15 Test 06/29/24 05:15 Range/Units Serum Glucose 91 74-106 mg/dL Problem List/Assessment/Plan Problem List/Assessment/Plan 06/19/24 notified by nurses that they are unable to obtain a consent from family. As debridement does not constitute a surgical emergency I will post pone an operation until an appropriate consent is obtained, please notify me when consent accomplished 06/27/24 TRACHEOSTOMY OK,no problems reported, cxr stable .will sign off please recall if needed 06/29/24 one day s/p left thoracotomy and decortication, cxr markedly improved, small air leak via left chest tube, voluminous ct output, mostly irrigation fluid, H/H ok, will check coags, need to DC Lovenox Plan discussed with: Patient, Other Dietary Evaluation Review Comments: 1. consider Renal Specific 70g protein restriction witn 2GNa, 3K, low Phos, if no diaylsis needed. 2. consider Renal Standard 2gn, 3K, low phosphate diet if Pt is on dialysis. 3. encourage and monitor po intake to meet 75% of his needs. Expected Outcomes/Goals: avoid uremic symptoms, gradual healed wounds. JIHAN HENDERSON MD Jun 29, 2024 10:18
[2024-06-29 10:57] LABS: INR 1.16 (0.9-1.15); Partial Thromboplastin Time 33.4 SEC (24.5-34.5); Prothrombin Time 12.1 sec (9.3-11.8)
--- NOTE | 2024-06-29 12:23 | DVHPN2 ---
Subjective Sedated; on MV via tracheostomy Reviewed: Care Plan, H&P, Labs, Medications, Previous Orders, Radiology, Other (Consultations) Changes from previous H/P or p: No Changes Objective Vitals Vital Signs Date Time Temp Pulse Resp B/P (MAP) Pulse Ox O2 Delivery O2 Flow Rate FiO2 06/29/24 11:55 82 28 130/41 (70) 100 30 06/29/24 10:00 Mechanical Ventilator+ 06/29/24 08:00 99.0 99.0 Intake/Output Intake and Output 06/29/24 07:00 Intake Total 1588.876 ml Output Total 1925 ml Balance -336.124 ml Intake Oral 280 ml IV Total 928.876 ml Other 380 ml Output Urine Total 1225 ml Other 700 ml General Appearance: Other (Sedated) HEENT: Atraumatic Neck: Other (tracheostomy) Lungs: Other (MV sounds) Chest/Breasts: Other (Two right-sided chest tubes; and one left-sided chest tube) Cardiovascular: Regular rate, Normal S1, Normal S2 Abdomen: Normal bowel sounds, Soft Genitourinary: Other ([place]) Neuro: Other (Sedated) Psych/Mental Status: Other (Sedated) Medications Current Medications Medications Dose Ordered Sig/Amy Route Start Time Stop Time Status Last Admin Dose Admin Potassium Chloride 100 ml @ 50 mls/hr Q2H IV 05/27/24 17:15 05/28/24 01:14 UNV Diagnostic Test (Pha) 1 strip Q6HR 05/30/24 18:00 06/29/24 12:03 1 STRIP Insulin Human Regular FOLLOW SLIDING SCALE Q6HR SC 05/30/24 18:00 06/24/24 01:27 2 UNITS Dextrose 50 ml UD IV 05/30/24 12:15 Acetaminophen 650 mg Q6HP PRN PO 05/31/24 19:30 06/10/24 14:37 650 MG Midazolam HCl 50 ml @ 1 mls/hr Q24H IV 06/08/24 20:15 06/27/24 08:50 3 MLS/HR Norepinephrine Bitartrate 32 mg/ Sodium Chloride 250 ml @ 0.938 mls/ hr Q24H IV 06/11/24 15:30 06/26/24 15:42 4.688 MLS/HR Potassium Chloride 100 ml @ 50 mls/hr Q2H IV 06/13/24 12:45 06/13/24 16:44 UNV Magnesium Sulfate/ Dextrose 100 ml @ 100 mls/hr Q1HR IV 06/13/24 13:00 06/13/24 14:59 UNV Cefepime HCl 50 ml @ 12.5 mls/hr Q8HR IV 06/13/24 14:00 UNV Fentanyl Citrate 250 ml @ 2.5 mls/hr Q24H IV 06/15/24 16:00 06/27/24 03:44 17.5 MLS/HR Sodium Chloride 10 ml QSHIFT@10,22 IV 06/17/24 22:00 06/29/24 09:01 10 ML Pantoprazole Sodium 40 mg DAILY IV 06/18/24 10:00 06/29/24 09:01 40 MG Vasopressin 20 units/Sodium Chloride 100 ml @ 9 mls/hr Q11H7M IV 06/21/24 07:45 06/23/24 23:25 9 MLS/HR Meropenem 50 ml @ 17 mls/hr Q8HR@0000,0800,1600 IV 06/22/24 00:00 06/29/24 08:04 17 MLS/HR Linezolid 300 ml @ 150 mls/hr Q12H IV 06/24/24 12:00 06/29/24 11:54 150 MLS/HR Enteral Nutritional Formula 1,000 ml 50ML/HR GT 06/25/24 10:30 Amiodarone HCl 200 mg DAILY PO 06/26/24 13:30 06/29/24 09:01 200 MG Micafungin Sodium 100 mg/Sodium Chloride 100 ml @ 100 mls/hr DAILY IV 06/28/24 10:00 06/29/24 08:04 100 MLS/HR Laboratory Results Laboratory Tests 06/29/24 05:15 Chemistry Test 06/28/24 14:58 06/29/24 05:15 Albumin 1.8 g/dL (3.2-4.8) L 2.0 g/dL (3.2-4.8) L Calcium Level 7.5 mg/dL (8.7-10.4) L 7.9 mg/dL (8.7-10.4) L Magnesium Level 2.3 mg/dL (1.6-2.6) 2.2 mg/dL (1.6-2.6) Total Protein 5.0 g/dL (5.7-8.2) L 5.1 g/dL (5.7-8.2) L Coagulation Test 06/29/24 10:34 Prothrombin Time 12.1 sec (9.3-11.8) H Prothrombin Time INR 1.16 (0.9-1.15) H Activated Partial Thromboplast Time 33.4 SEC (24.5-34.5) LFT Test 06/28/24 14:58 06/29/24 05:15 Alanine Aminotransferase (ALT) 37 U/L (7-40) 31 U/L (7-40) Alkaline Phosphatase 317 U/L (46-116) H 264 U/L (46-116) H Aspartate Amino Transferase (AST) 47 U/L (13-40) H 39 U/L (13-40) Total Bilirubin 1.9 mg/dL (0.2-1.0) H 1.9 mg/dL (0.2-1.0) H Urinalysis Test 05/19/24 10:08 Urine Color Yellow (Yellow) Urine Clarity Turbid (Clear) H Urine pH 5.0 (5.0-9.0) Urine Specific [place] 1.012 (1.001-1.035) Urine Protein 1+ (Negative) H Urine Ketones Negative (Negative) Urine Blood Negative /uL (Negative) Urine Nitrite Negative (Negative) Urine Bilirubin Negative (Negative) Urine Urobilinogen 3 mg/dL (Negative) H Urine Leukocyte Esterase Negative /uL (Negative) Urine RBC 1 /hpf (0 - 3) Urine WBC 3 /hpf (0 - 3) Urine Squamous Epithelial Cells Few /hpf (<5) Urine Bacteria None seen /hpf (None Seen) Urine Hyaline Casts Many /lpf (0 - 2) Urine Mucus Few (None Seen) Urine Glucose Normal mg/dL (Normal) Blood Gas Results Test 06/29/24 06:30 Arterial Blood pH 7.534 (7.350-7.450) FiO2 % 30.0 Microbiology Microbiology Date/Time Source Procedure Growth Status 06/28/24 10:30 Chest Gram Stain Pending Resulted 06/28/24 10:30 Chest Anaerobic Culture Pending Resulted 06/28/24 10:30 Chest Aerobic Culture - Preliminary Resulted 06/25/24 14:45 Pleural Fluid Gram Stain - Final Complete 06/25/24 14:45 Body Fluid Culture - Final Pseudomonas aeruginosa Complete 06/25/24 06:40 Urine - [place] Urine Culture - Final Yeast, not Radha albicans Complete 06/25/24 06:35 Sputum Gram Stain - Final Resulted 06/25/24 06:35 Sputum Respiratory Culture - Preliminary Resulted 06/24/24 20:21 Blood Blood Culture - Preliminary NO GROWTH AFTER 72 HOURS OF INCUBATION. Resulted Labs and/or images reviewed: Labs reviewed by me, Image(s) reviewed by me Assessment/Plan Assessment/Plan Covering Dr. Chamberlain: #Acute metabolic/toxic encephalopathy in the setting of septic shock #Acute hypoxic respiratory failure due to pneumonia, pleural effusions, and pulmonary embolism #Septic shock due to pneumonia #Pleural effusions s/p three chest tubes (two on the right; one on the left) #Acute on chronic systolic CHF #RADHA due to VMN in the setting of septic shock #Sacral wound Chest tubes' management as per pulmonology Continue oxygen therapy via MV via tracheostomy as per pulmonology Continue broad-spectrum IV antibiotics, and IV antifungal Holding anticoagulation due to procedures Continue IV vasopressors as indicated Cardiology is following Reviewed available cultures, labs, ABGs, and imaging studies including CXRs Continue close monitoring 120 minutes of critical care time. Late Entry. This medical document was created using an electronic medical record system with computerized dictation system. Although this document has been carefully reviewed, there might still be some phonetic and typographical errors. These areas are purely typographical due to imperfections of the software programs, and do not reflect any compromise in the patient's medical care. Plan discussed with: Other (Nurse) Date of Service: Jun 29, 2024 Billing Provider: TONI MONTIEL MD Common Visit Codes: 30438-[id number] CARE 30-74 MIN (120 minutes), [id number] CARE-EACH +30MIN TONI MONTIEL MD Jun 29, 2024 12:23
[2024-06-29] MEDS: ACETYLCYSTEINE 20%(200MG/ML) SOL 4ML NEB SCH (13:51)
[2024-06-29] MEDS: ALBUTEROL SULF 2.5 MG/0.5ML(0.5%) NEB SOLN NEB SCH (13:51)
[2024-06-29] MEDS: IPRATROPIUM BROM 0.5 MG/2.5ML INH SOL NEB SCH (13:51)
--- NOTE | 2024-06-29 19:53 | DVHNC2 ---
Procedure - Bronchoscopy procedure note: Indications: Increased endotracheal tube secretions, Possible mucous plugging. Medicines: See [employer] notes. Complications: None Procedure: Patient medications and allergies reviewed. The risks and benefits of the procedure and the sedation options and risk were discussed with the patient's healthcare proxy. All questions were answered and informed consent was obtained. Patient identification and proposed procedure were verified prior to the procedure by the physician, and a nurse, and the respiratory therapist in ICU room. The heart rate, respiratory rate, oxygen saturations, blood pressure, adequacy of pulmonary ventilation, and response to care were monitored throughout the procedure. The physical status of the patient was reassessed after the procedure. After obtaining informed consent, the bronchoscope was introduced through the tracheostomy tube and advanced into the trachea bronchial tree of both lungs. The procedure was accomplished without difficulty. The patient tolerated the procedure well. Findings: The trachea is in normal caliber. The fredo is sharp. The tracheobronchial tree of the right lung was examined to at least the first subsegmental level. The bronchial mucosa and anatomy in the right lung are normal. There are no endobronchial lesions. There was copious whitish secretions from right main stem bronchus onward throughout R1-R3 and R6-R10. Right middle lobe (RML) Bronchoalveolar lavage (BAL) obtained. RML BAL sent for gram stain and culture and fungal culture. The left upper lobe, lingula, and left lower lobe were examined to at least the first subsegmental level. Bronchial mucosa and anatomy in the left upper lobe and lingula are normal. There were no endobronchial lesions. There was copious whitish secretions from left main stem bronchus onward throughout L6-L10. Mucous plugging removed from L6-L10. There was no active bleeding at the completion of the procedure. Estimated blood loss: Less than 5 mL. Impression: RUL/RLL and LLL atelectasis due to mucous plugging Mucous plugging from L6-L10 and R1-R3 and R6-R10 RML BAL performed Recommendation: Follow-up RML BAL results. Procedure codes: 57252, bronchoscopy, rigid and flexible, including fluoroscopic guidance, one performed; with bronchial endobronchial broncho-alveolar lavage, single or multiple sites BOGDAN MANN MD Jun 29, 2024 19:53
--- NOTE | 2024-06-29 23:33 | DVHPN2 ---
Progress Note - Dictate Date Seen: Jun 29, 2024 Medical Necessity Reason Pt with a Central, PICC or Fol: Yes The following are medically ne: Central Line, Olsen Catheter Reason for olsen catheter: Strict I&O Subjective Patient seen and examined at bedside. intubated on mechanical ventilator. Overnight events reviewed. vital signs Vital Sign Date Time Temp Pulse Resp B/P (MAP) Pulse Ox O2 Delivery O2 Flow Rate FiO2 06/29/24 22:02 86 22 130/39 (69) 100 50 06/29/24 22:00 Mechanical Ventilator+ 06/29/24 20:00 100.3 100.3 Total Intake and Output 06/28/24 06/28/24 06/29/24 15:00 23:00 07:00 Intake Total 398.876 ml 180.0 ml 1010.0 ml Output Total 1225 ml 700 ml Balance 398.876 ml -1045.0 ml 310.0 ml medications Current Medications Medications Dose Ordered Sig/Amy Route Start Time Stop Time Status Last Admin Dose Admin Potassium Chloride 100 ml @ 50 mls/hr Q2H IV 05/27/24 17:15 05/28/24 01:14 UNV Diagnostic Test (Pha) 1 strip Q6HR 05/30/24 18:00 06/29/24 17:25 1 STRIP Insulin Human Regular FOLLOW SLIDING SCALE Q6HR SC 05/30/24 18:00 06/24/24 01:27 2 UNITS Dextrose 50 ml UD IV 05/30/24 12:15 Acetaminophen 650 mg Q6HP PRN PO 05/31/24 19:30 06/10/24 14:37 650 MG Midazolam HCl 50 ml @ 1 mls/hr Q24H IV 06/08/24 20:15 06/27/24 08:50 3 MLS/HR Norepinephrine Bitartrate 32 mg/ Sodium Chloride 250 ml @ 0.938 mls/ hr Q24H IV 06/11/24 15:30 06/26/24 15:42 4.688 MLS/HR Potassium Chloride 100 ml @ 50 mls/hr Q2H IV 06/13/24 12:45 06/13/24 16:44 UNV Magnesium Sulfate/ Dextrose 100 ml @ 100 mls/hr Q1HR IV 06/13/24 13:00 06/13/24 14:59 UNV Cefepime HCl 50 ml @ 12.5 mls/hr Q8HR IV 06/13/24 14:00 UNV Fentanyl Citrate 250 ml @ 2.5 mls/hr Q24H IV 06/15/24 16:00 06/29/24 16:23 2.5 MLS/HR Sodium Chloride 10 ml QSHIFT@10,22 IV 06/17/24 22:00 06/29/24 22:00 10 ML Pantoprazole Sodium 40 mg DAILY IV 06/18/24 10:00 06/29/24 09:01 40 MG Vasopressin 20 units/Sodium Chloride 100 ml @ 9 mls/hr Q11H7M IV 06/21/24 07:45 06/23/24 23:25 9 MLS/HR Meropenem 50 ml @ 17 mls/hr Q8HR@0000,0800,1600 IV 06/22/24 00:00 06/29/24 16:19 17 MLS/HR Linezolid 300 ml @ 150 mls/hr Q12H IV 06/24/24 12:00 06/29/24 11:54 150 MLS/HR Enteral Nutritional Formula 1,000 ml 50ML/HR GT 06/25/24 10:30 Amiodarone HCl 200 mg DAILY PO 06/26/24 13:30 06/29/24 09:01 200 MG Micafungin Sodium 100 mg/Sodium Chloride 100 ml @ 100 mls/hr DAILY IV 06/28/24 10:00 06/29/24 08:04 100 MLS/HR Albuterol 2.5 mg Q6HR NEB 06/29/24 12:40 06/29/24 18:24 2.5 MG Ipratropium [place] 0.5 mg Q6HR NEB 06/29/24 12:41 06/29/24 18:24 0.5 MG Acetylcysteine 200 mg Q6HR NEB 06/29/24 12:41 06/29/24 18:24 200 MG objective Gen.: Patient lying in bed in medical ICU. Intubated on mechanical ventilator. Head: Normocephalic, atraumatic. Eyes: PERRLA. Ears: Normal external anatomy. Throat: Endotracheal tube and orogastric tube in place. Neck: Supple, trachea midline. Chest: Transmitted breath sounds bilaterally. Decreased air entry bilaterally. No wheezing. Bibasilar crackles. Cardio vascular: Positive S1, positive S2. Regular rate and rhythm. Abdomen: Positive bowel sounds in all 4 quadrants. Soft, nontender, nondistended. : Olsen in place. Normal external genitalia. Rectal: Deferred Skin: Warm, dry. Intact. Extremities: 2+ radial pulses bilaterally. No lower extremity edema. Neuro: Off sedation laboratory and microbiology Laboratory Tests 06/29/24 05:15 Test 06/29/24 05:15 Range/Units Serum Glucose 91 74-106 mg/dL Assessment/Plan Impression: Acute hypoxic respiratory failure Mechanical ventilator Pleural effusion, right Atelectasis CHF exacerbation Pulmonary embolism Obesity with a BMI of 30.1 Pneumonia, likely gram negative Sacral wound Events: S/p therapeutic bronchoscopy w/ RML BAL performed today, cleared mucous plugging from L6-L10 and R1-R3 and R6-R10 Please see separate procedure note for details. Vent support On assist control with respiratory rate of 14, tidal volume 500, PEEP of 5, FiO2 at 30%. ABG notable for alkalemia S/p placement of 3 chest tubes Right chest tube shows persistent air leak Left chest tube w/ serosanguineous output Wound VAC Rectal tube Central line in place On Fentanyl for analgesia Off pressors, hemodynamically stable. Continue antibiotics IV fluids w/ normal saline TPN for nutritional support Monitor hemoglobin Monitor renal function Monitor electrolytes. Supplement as necessary. Monitor ins and outs Nephrology recs appreciated. Wound care Surgery recs appreciated. SBT/BAM Poor prognosis Recommend Trach/PEG for liberation from vent. 06/09/24 - S/p bronchoscopy - removed copious secretions from L1-L10 06/09/24 - S/p right thoracentesis - 550 ml joycelyn fluid removed from right pleural space. 06/05/24 - S/p left thoracentesis on 950 mL's of joycelyn colored fluid removed from left pleural space. 06/03/24 - S/p bronchoscopy - cleared mucous plugging from L6-L10, L1-L5 and R1- R3 06/03/24 - S/p right thoracentesis - 1700 mL of serosanguineous fluid removed from R pleural space. S/p bronchoscopy w/ RML BAL on 05/28/24 - Cleared bloody secretions from L1-L10 and R1-R10 S/p cardioversion on 05/27/24 Labs and imaging reviewed. Rest of plan as noted below. Plan: s/p intubation on mechanical ventilator Status post right thoracentesis with removal of 2200 mL ABG reviewed. Alkalemia due to contraction alkalosis. Hypoxemia with a PO2 of 42 mmHg. Patient was emergently intubated and placed on mechanical ventilation. Currently on assist control with respiratory rate of 14, tidal volume 500, PEEP of 5, FiO2 at 30%. Titrate FIO2 to keep O2 saturation above 92%. VAP bundle Daily ABG and CXR while intubated. Off sedation Pressors if necessary for hemodynamic support. Titrate to keep MAP above 65 mmHg/SBP above 90 mmHg. Continue antibiotics F/u cultures. Sputum cultures grew Staph aureus and Pseudomonas aeruginosa. Monitor renal function due to Acute kidney injury. Monitor electrolytes. Supplement as necessary. Monitor ins and outs Maintain euvolemia Cardiology recommendations appreciated. Nutritional support. Accu-Cheks, ISS. GI/DVT prophylaxis. Condition: Critical Prognosis: Poor given multiple comorbidities. Rest of plan per hospitalist and other consultants. A total of 35 minutes of critical care time was spent reviewing the patient record, examining the patient, making a diagnostic and therapeutic plan, discussing this plan with the medical personnel, following up on diagnostic studies and following the patient for clinical stability excluding any and all procedures. At least 50% of this time was spent in direct, [id number] contact. Thank you Dr. Conn for allowing me to participate in this patient's care. Further recommendations will depend on patient's clinical course. Please do not hesitate to contact me if you have any questions or concerns. This medical document was created using an electronic medical record system with [employer] dictation system. Although this document has been carefully reviewed, there may still be some phonetic and typographical errors. These areas are purely typographical due to imperfections of the software programs, and do not reflect any compromise in the patient's medical care. Dietary Evaluation Review Comments: 1. consider Renal Specific 70g protein restriction witn 2GNa, 3K, low Phos, if no diaylsis needed. 2. consider Renal Standard 2gn, 3K, low phosphate diet if Pt is on dialysis. 3. encourage and monitor po intake to meet 75% of his needs. Expected Outcomes/Goals: avoid uremic symptoms, gradual healed wounds. Plan discussed with: Other (CALEB Tinajero) Critical Care Time(min): 35 BOGDAN MANN MD Jun 29, 2024 23:33
[2024-06-30] VITALS (105 sets, daily range): BP systolic 55–144; BP diastolic 20–48; PULSE 82–92; RESP 9–36; TEMP 98.5–100.6; O2SAT 100
--- NOTE | 2024-06-30 05:50 | DVH ---
CHEST RADIOGRAPH Indication: Acute respiratory failure with chest tubes Technique: Single frontal view of the chest was obtained Comparison: XY CHEST PORTABLE on DOS: 06/29/24, XY CHEST PORTABLE on DOS: 06/28/24, XY CHEST PORTABLE on DOS: 06/28/24 IMPRESSION: Cardiomediastinal silhouette appears stable. There are bilateral stable pneumothoraces in the presen ce of bilateral chest tubes and right pleural catheter. Tracheostomy tube, enteric tube, and right PI CC line appear stable. Bilateral atelectatic changes of the lungs appear similar. There is extensive subcutaneous emphysema of the left chest wall with surgical abiodun. Overall no significant interval change.
[2024-06-30 06:01] LABS: Basophils # (auto) 0.1 10 ^3/uL (0-0.2); Eosinophils # (auto) 0.1 10 ^3/uL (0-0.8); Eosinophils % (auto) 1.1 % (0.0-7.0); Hemoglobin 7.5 g/dL (13.5-17.5); Lymphocytes # (auto) 1.2 10 ^3/uL (0.4-5.4); Monocytes # (auto) 0.4 10 ^3/uL (0-1.3); Monocytes % (auto) 4.7 % (0.0-12.0)
[2024-06-30 06:03] LABS: Basophils % (auto) 0.7 % (0.0-2.0); Lymphocytes % (auto) 13.6 % (10.0-50.0); Mean Corpuscular Hemoglobin 29.3 pg (28.0-32.0); Mean Corpuscular Hgb Conc. 34.2 g/dL (32.0-36.0); Mean Corpuscular Volume 85.5 fL (80.0-100.0); Neutrophils # (auto) 7.3 10 ^3/uL (1.6-8.6); Neutrophils % (auto) 79.9 % (37.0-80.0); Nucleated Red Blood Cells % 0.2 %; Platelet Count (auto) 166 10^3/uL (140-450); Red Blood Cells 2.57 10^6/uL (4.5-5.90); Red Cell Distribution Width 17.6 % (11.8-14.3); White Blood Cell 9.1 10^3/uL (4.4-10.8)
[2024-06-30 06:18] LABS: Alanine Aminotransferase 25 U/L (7-40); Anion Gap 9 (5-15); Aspartate Aminotransferase 35 U/L (13-40); BUN/Creatinine Ratio 33.3 (10.0-20.0); Blood Urea Nitrogen 20 mg/dL (9-23); Carbon Dioxide 25 mmol/L (20-31); Glucose 99 mg/dL (74-106); Sodium 144 mmol/L (136-145)
[2024-06-30 06:19] LABS: Albumin 1.9 g/dL (3.2-4.8); Alkaline Phosphatase 216 U/L (46-116); Bilirubin, Total 1.6 mg/dL (0.2-1.0); Calcium 7.6 mg/dL (8.7-10.4); Chloride 110 mmol/L (98-107); Potassium 3.5 mmol/L (3.5-5.1); Total Protein 4.8 g/dL (5.7-8.2)
[2024-06-30 08:48] LABS: Base Excess 3.4 mmol/L (-2.0-3.0)
--- NOTE | 2024-06-30 11:13 | DVHPN2 ---
Progress Note Date Seen: Jun 30, 2024 Medical Necessity Reason Pt with a Central, PICC or Fol: Yes The following are medically ne: Central Line, Olsen Catheter Reason for olsen catheter: Strict I&O Objective vital signs Vital Sign Date Time Temp Pulse Resp B/P (MAP) Pulse Ox O2 Delivery O2 Flow Rate FiO2 06/30/24 10:30 86 30 112/26 (54) 100 06/30/24 10:20 30 06/30/24 10:00 Mechanical Ventilator+ 06/30/24 08:00 98.5 98.5 Total Intake and Output 06/29/24 06/29/24 06/30/24 15:00 23:00 07:00 Intake Total 470.0 ml 260.0 ml 3270.0 ml Output Total 1150 ml 1300 ml Balance 470.0 ml -890.0 ml 1970.0 ml medications Current Medications Medications Dose Ordered Sig/Amy Route Start Time Stop Time Status Last Admin Dose Admin Potassium Chloride 100 ml @ 50 mls/hr Q2H IV 05/27/24 17:15 05/28/24 01:14 UNV Diagnostic Test (Pha) 1 strip Q6HR 05/30/24 18:00 06/30/24 06:00 1 STRIP Insulin Human Regular FOLLOW SLIDING SCALE Q6HR SC 05/30/24 18:00 06/24/24 01:27 2 UNITS Dextrose 50 ml UD IV 05/30/24 12:15 Acetaminophen 650 mg Q6HP PRN PO 05/31/24 19:30 06/10/24 14:37 650 MG Midazolam HCl 50 ml @ 1 mls/hr Q24H IV 06/08/24 20:15 06/27/24 08:50 3 MLS/HR Norepinephrine Bitartrate 32 mg/ Sodium Chloride 250 ml @ 0.938 mls/ hr Q24H IV 06/11/24 15:30 06/26/24 15:42 4.688 MLS/HR Potassium Chloride 100 ml @ 50 mls/hr Q2H IV 06/13/24 12:45 06/13/24 16:44 UNV Magnesium Sulfate/ Dextrose 100 ml @ 100 mls/hr Q1HR IV 06/13/24 13:00 06/13/24 14:59 UNV Cefepime HCl 50 ml @ 12.5 mls/hr Q8HR IV 06/13/24 14:00 UNV Fentanyl Citrate 250 ml @ 2.5 mls/hr Q24H IV 06/15/24 16:00 06/29/24 16:23 2.5 MLS/HR Sodium Chloride 10 ml QSHIFT@10,22 IV 06/17/24 22:00 06/30/24 09:19 10 ML Pantoprazole Sodium 40 mg DAILY IV 06/18/24 10:00 06/30/24 09:19 40 MG Vasopressin 20 units/Sodium Chloride 100 ml @ 9 mls/hr Q11H7M IV 06/21/24 07:45 06/23/24 23:25 9 MLS/HR Meropenem 50 ml @ 17 mls/hr Q8HR@0000,0800,1600 IV 06/22/24 00:00 06/30/24 07:59 17 MLS/HR Linezolid 300 ml @ 150 mls/hr Q12H IV 06/24/24 12:00 06/30/24 00:34 150 MLS/HR Enteral Nutritional Formula 1,000 ml 50ML/HR GT 06/25/24 10:30 Amiodarone HCl 200 mg DAILY PO 06/26/24 13:30 06/30/24 09:20 200 MG Micafungin Sodium 100 mg/Sodium Chloride 100 ml @ 100 mls/hr DAILY IV 06/28/24 10:00 06/30/24 09:19 100 MLS/HR Albuterol 2.5 mg Q6HR NEB 06/29/24 12:40 06/30/24 05:40 2.5 MG Ipratropium [place] 0.5 mg Q6HR NEB 06/29/24 12:41 06/30/24 05:40 0.5 MG Acetylcysteine 200 mg Q6HR NEB 06/29/24 12:41 06/30/24 05:40 200 MG laboratory and microbiology Laboratory Tests 06/30/24 05:30 Test 06/30/24 05:30 Range/Units Serum Glucose 99 74-106 mg/dL Problem List/Assessment/Plan Problem List/Assessment/Plan 06/19/24 notified by nurses that they are unable to obtain a consent from family. As debridement does not constitute a surgical emergency I will post pone an operation until an appropriate consent is obtained, please notify me when consent accomplished 06/27/24 TRACHEOSTOMY OK,no problems reported, cxr stable .will sign off please recall if needed 06/29/24 one day s/p left thoracotomy and decortication, cxr markedly improved, small air leak via left chest tube, voluminous ct output, mostly irrigation fluid, H/H ok, will check coags, need to DC Lovenox 06/30/24 cxr stable, improved. no air leak, outp[ut serosanguineous, surgically stable. Plan discussed with: Patient, Other Dietary Evaluation Review Comments: 1. consider Renal Specific 70g protein restriction witn 2GNa, 3K, low Phos, if no diaylsis needed. 2. consider Renal Standard 2gn, 3K, low phosphate diet if Pt is on dialysis. 3. encourage and monitor po intake to meet 75% of his needs. Expected Outcomes/Goals: avoid uremic symptoms, gradual healed wounds. JIHAN HENDERSON MD Jun 30, 2024 11:13
[2024-06-30] MEDS ORDERED: GENTAMICIN PER PHARMACY 0 ML IV SCH (12:45)
[2024-06-30] MEDS ORDERED: CeftoloZANE-TAZOB 3 GM in D5W 5% 100 ML IV SCH (16:00)
[2024-06-30] MEDS: D5W 5% IV ONE (16:15)
[2024-06-30] MEDS: GENTAMICIN SULFATE IV ONE (16:15)
[2024-06-30] MEDS: CeftoloZANE-TAZOB 3 GM in D5W 5% 100 ML IV SCH (17:14)
--- NOTE | 2024-06-30 22:38 | DVHPN2 ---
Subjective Sedated; on MV via tracheostomy Reviewed: Care Plan, H&P, Labs, Medications, Previous Orders, Radiology, Other (Consultations) Changes from previous H/P or p: No Changes Objective Vitals Vital Signs Date Time Temp Pulse Resp B/P (MAP) Pulse Ox O2 Delivery O2 Flow Rate FiO2 06/30/24 19:52 89 32 115/38 (63) 100 30 06/30/24 18:00 Mechanical Ventilator+ 06/30/24 16:00 99.8 99.8 Intake/Output Intake and Output 06/30/24 07:00 Intake Total 4000.0 ml Output Total 2450 ml Balance 1550.0 ml Intake Oral 2200 ml IV Total 1610.0 ml Tube Feeding 190 ml Output Urine Total 1100 ml Stool Total 200 ml Chest Tube Drainage Total 1150 ml General Appearance: Other (Sedated) HEENT: Atraumatic Neck: Other (tracheostomy) Lungs: Other (MV sounds) Chest/Breasts: Other (Two right-sided chest tubes; and one left-sided chest tube) Cardiovascular: Regular rate, Normal S1, Normal S2 Abdomen: Normal bowel sounds, Soft Genitourinary: Other ([place]) Neuro: Other (Sedated) Psych/Mental Status: Other (Sedated) Medications Current Medications Medications Dose Ordered Sig/Amy Route Start Time Stop Time Status Last Admin Dose Admin Potassium Chloride 100 ml @ 50 mls/hr Q2H IV 05/27/24 17:15 05/28/24 01:14 UNV Diagnostic Test (Pha) 1 strip Q6HR 05/30/24 18:00 06/30/24 17:38 1 STRIP Insulin Human Regular FOLLOW SLIDING SCALE Q6HR SC 05/30/24 18:00 06/24/24 01:27 2 UNITS Dextrose 50 ml UD IV 05/30/24 12:15 Acetaminophen 650 mg Q6HP PRN PO 05/31/24 19:30 06/10/24 14:37 650 MG Midazolam HCl 50 ml @ 1 mls/hr Q24H IV 06/08/24 20:15 06/27/24 08:50 3 MLS/HR Norepinephrine Bitartrate 32 mg/ Sodium Chloride 250 ml @ 0.938 mls/ hr Q24H IV 06/11/24 15:30 06/30/24 13:53 0.938 MLS/HR Potassium Chloride 100 ml @ 50 mls/hr Q2H IV 06/13/24 12:45 06/13/24 16:44 UNV Magnesium Sulfate/ Dextrose 100 ml @ 100 mls/hr Q1HR IV 06/13/24 13:00 06/13/24 14:59 UNV Cefepime HCl 50 ml @ 12.5 mls/hr Q8HR IV 06/13/24 14:00 UNV Fentanyl Citrate 250 ml @ 2.5 mls/hr Q24H IV 06/15/24 16:00 06/29/24 16:23 2.5 MLS/HR Sodium Chloride 10 ml QSHIFT@10,22 IV 06/17/24 22:00 06/30/24 09:19 10 ML Pantoprazole Sodium 40 mg DAILY IV 06/18/24 10:00 06/30/24 09:19 40 MG Vasopressin 20 units/Sodium Chloride 100 ml @ 9 mls/hr Q11H7M IV 06/21/24 07:45 06/23/24 23:25 9 MLS/HR Linezolid 300 ml @ 150 mls/hr Q12H IV 06/24/24 12:00 06/30/24 11:40 150 MLS/HR Enteral Nutritional Formula 1,000 ml 50ML/HR GT 06/25/24 10:30 Amiodarone HCl 200 mg DAILY PO 06/26/24 13:30 06/30/24 09:20 200 MG Micafungin Sodium 100 mg/Sodium Chloride 100 ml @ 100 mls/hr DAILY IV 06/28/24 10:00 06/30/24 09:19 100 MLS/HR Albuterol 2.5 mg Q6HR NEB 06/29/24 12:40 06/30/24 18:07 2.5 MG Ipratropium [place] 0.5 mg Q6HR NEB 06/29/24 12:41 06/30/24 18:07 0.5 MG Acetylcysteine 200 mg Q6HR NEB 06/29/24 12:41 06/30/24 18:07 200 MG Gentamicin Sulfate 0 ml @ 0 mls/hr PER PHARMACY IV 06/30/24 12:45 Ceftolozane/ Tazobactam 3 gm/ Dextrose 100 ml @ 33.333 mls/ hr Q8H IV 06/30/24 18:00 06/30/24 17:14 33.333 MLS/HR Laboratory Results Laboratory Tests 06/30/24 05:30 Chemistry Test 06/30/24 05:30 Albumin 1.9 g/dL (3.2-4.8) L Calcium Level 7.6 mg/dL (8.7-10.4) L Total Protein 4.8 g/dL (5.7-8.2) L LFT Test 06/30/24 05:30 Alanine Aminotransferase (ALT) 25 U/L (7-40) Alkaline Phosphatase 216 U/L (46-116) H Aspartate Amino Transferase (AST) 35 U/L (13-40) Total Bilirubin 1.6 mg/dL (0.2-1.0) H Urinalysis Test 05/19/24 10:08 Urine Color Yellow (Yellow) Urine Clarity Turbid (Clear) H Urine pH 5.0 (5.0-9.0) Urine Specific [place] 1.012 (1.001-1.035) Urine Protein 1+ (Negative) H Urine Ketones Negative (Negative) Urine Blood Negative /uL (Negative) Urine Nitrite Negative (Negative) Urine Bilirubin Negative (Negative) Urine Urobilinogen 3 mg/dL (Negative) H Urine Leukocyte Esterase Negative /uL (Negative) Urine RBC 1 /hpf (0 - 3) Urine WBC 3 /hpf (0 - 3) Urine Squamous Epithelial Cells Few /hpf (<5) Urine Bacteria None seen /hpf (None Seen) Urine Hyaline Casts Many /lpf (0 - 2) Urine Mucus Few (None Seen) Urine Glucose Normal mg/dL (Normal) Blood Gas Results Test 06/30/24 08:41 Arterial Blood pH 7.572 (7.350-7.450) FiO2 % 30.0 Microbiology Microbiology Date/Time Source Procedure Growth Status 06/29/24 18:08 Bronchial Washings Gram Stain - Final Resulted 06/29/24 18:08 Bronchial Washings Respiratory Culture - Preliminary Resulted 06/28/24 10:30 Chest Gram Stain - Final Resulted 06/28/24 10:30 Chest Anaerobic Culture - Preliminary Resulted 06/28/24 10:30 Chest Aerobic Culture - Preliminary Resulted 06/25/24 14:45 Pleural Fluid Gram Stain - Final Complete 06/25/24 14:45 Body Fluid Culture - Final Pseudomonas aeruginosa Complete 06/25/24 06:40 Urine - [place] Urine Culture - Final Yeast, not Radha albicans Complete 06/24/24 20:21 Blood Blood Culture - Final NO GROWTH AFTER 5 DAYS OF INCUBATION. Complete Assessment/Plan Assessment/Plan Covering Dr. Chamberlain: #Acute metabolic/toxic encephalopathy in the setting of septic shock #Acute hypoxic respiratory failure due to Pseudomonas aeruginosa pneumonia, pleural effusions, and pulmonary embolism #Septic shock due to Pseudomonas aeruginosa pneumonia #Pleural effusions s/p three chest tubes (two on the right; one on the left) #Acute on chronic systolic CHF #RADHA due to VMN in the setting of septic shock #Sacral wound Chest tubes' management as per pulmonology Continue oxygen therapy via MV via tracheostomy as per pulmonology Continue IV antifungal Changed IV antibiotics to cover Pseudomonas aeruginosa as per pharmacy Holding anticoagulation due to procedures Continue IV vasopressors as indicated Cardiology is following Reviewed available cultures, labs, ABGs, and imaging studies including CXRs Avoid nephrotoxic agents Continue wound care Continue close monitoring 66 minutes of critical care time. Late Entry. This medical document was created using an electronic medical record system with computerized dictation system. Although this document has been carefully reviewed, there might still be some phonetic and typographical errors. These areas are purely typographical due to imperfections of the software programs, and do not reflect any compromise in the patient's medical care. Plan discussed with: Other (Nurse) My Orders Orders - TONI MONTIEL MD Procedure Category Date Status Time Gentamicin Per TONY 06/30/24 In Process Pharmacy Protco 11:35 Gentamicin Per [facility] 06/30/24 In Process Pharmacy 12:45 Gentamycin, [facility] 07/01/24 Verified 04:00 Ceftolozane-Tazob [facility] 06/30/24 In Process 1g/0.5g Vl (Zerbaxa 1g 18:00 Date of Service: Jun 30, 2024 Billing Provider: TONI MONTIEL MD Common Visit Codes: [id number] CARE 30-74 MIN (66 minutes) TONI MONTIEL MD Jun 30, 2024 22:38
[2024-07-01] VITALS (104 sets, daily range): BP systolic 87–180; BP diastolic 32–68; PULSE 74–93; RESP 9–33; TEMP 98.1–100.6; O2SAT 93–100
[2024-07-01 05:48] LABS: Basophils # (auto) 0 10 ^3/uL (0-0.2); Basophils % (auto) 0.4 % (0.0-2.0); Eosinophils # (auto) 0.2 10 ^3/uL (0-0.8); Eosinophils % (auto) 3.2 % (0.0-7.0); Hemoglobin 7.1 g/dL (13.5-17.5); Lymphocytes # (auto) 1.2 10 ^3/uL (0.4-5.4); Lymphocytes % (auto) 17.2 % (10.0-50.0); Mean Corpuscular Hemoglobin 28.9 pg (28.0-32.0); Mean Corpuscular Hgb Conc. 33.9 g/dL (32.0-36.0); Mean Corpuscular Volume 85.4 fL (80.0-100.0); Monocytes # (auto) 0.4 10 ^3/uL (0-1.3); Monocytes % (auto) 5.4 % (0.0-12.0); Neutrophils # (auto) 5.1 10 ^3/uL (1.6-8.6); Neutrophils % (auto) 73.8 % (37.0-80.0); Nucleated Red Blood Cells % 0.2 %; Platelet Count (auto) 143 10^3/uL (140-450); Red Blood Cells 2.46 10^6/uL (4.5-5.90); Red Cell Distribution Width 17.6 % (11.8-14.3); White Blood Cell 6.9 10^3/uL (4.4-10.8)
[2024-07-01 06:17] LABS: Alanine Aminotransferase 24 U/L (7-40); Anion Gap 7 (5-15); Aspartate Aminotransferase 31 U/L (13-40); BUN/Creatinine Ratio 35.3 (10.0-20.0); Blood Urea Nitrogen 18 mg/dL (9-23); Carbon Dioxide 26 mmol/L (20-31); Glucose 96 mg/dL (74-106); Potassium 3.6 mmol/L (3.5-5.1)
[2024-07-01 06:25] LABS: Albumin 1.8 g/dL (3.2-4.8); Alkaline Phosphatase 185 U/L (46-116); Bilirubin, Total 1.7 mg/dL (0.2-1.0); Calcium 7.8 mg/dL (8.7-10.4); Chloride 112 mmol/L (98-107); Sodium 145 mmol/L (136-145); Total Protein 4.6 g/dL (5.7-8.2)
--- NOTE | 2024-07-01 10:47 | DVH ---
EXAM: XY CHEST PORTABLE Indication: Left chest tube air leak Technique: Single frontal view of the chest was obtained Comparison: XY CHEST XRAY 1 VIEW on DOS: 06/30/24 FINDINGS: Lines and Tubes: Stable tracheostomy tube, enteric tube and right PICC. The right chest tube does not appear kinked compared to prior exam. Left chest tube is unchanged. Lungs: Unchanged bilateral consolidative opacities. Pleura: No effusion. Trace left pneumothorax appears slightly decreased compared to prior exam. Interval resolution of rig ht pneumothorax. Cardiomediastinal contours: Unchanged. Subcutaneous emphysema in the left chest wall. Bones: No acute osseous abnormality. IMPRESSION: Left pneumothorax appears decreased compared to prior exam. Interval decrease in right pneumothorax w hich appears resolved.
--- NOTE | 2024-07-01 13:23 | DVHPN2 ---
Progress Note - Dictate Date Seen: Jul 01, 2024 Medical Necessity Reason Pt with a Central, PICC or Fol: Yes The following are medically ne: Central Line, Olsen Catheter Reason for olsen catheter: Strict I&O Subjective PT WITH SS COMPLEX INCRESEING SOB HARVEY LE EDEMA HFrEF CHRONIC AND ACUTE NOW WITH HEMOPTYSIS TACHYCARDIA CTA LUNG C/W PE ACUTE vital signs Vital Sign Date Time Temp Pulse Resp B/P (MAP) Pulse Ox O2 Delivery O2 Flow Rate FiO2 07/01/24 13:00 80 14 109/40 (63) 100 127/37 (67) 07/01/24 12:00 98.9 98.9 07/01/24 11:06 30 07/01/24 10:00 Mechanical Ventilator+ Total Intake and Output 06/30/24 06/30/24 07/01/24 15:00 23:00 07:00 Intake Total 475 ml 558.00 ml 320.708 ml Output Total 910 ml 1050 ml Balance 475 ml -352.00 ml -729.292 ml medications Current Medications Medications Dose Ordered Sig/Amy Route Start Time Stop Time Status Last Admin Dose Admin Potassium Chloride 100 ml @ 50 mls/hr Q2H IV 05/27/24 17:15 05/28/24 01:14 UNV Diagnostic Test (Pha) 1 strip Q6HR 05/30/24 18:00 07/01/24 12:30 1 STRIP Insulin Human Regular FOLLOW SLIDING SCALE Q6HR SC 05/30/24 18:00 06/24/24 01:27 2 UNITS Dextrose 50 ml UD IV 05/30/24 12:15 Acetaminophen 650 mg Q6HP PRN PO 05/31/24 19:30 06/10/24 14:37 650 MG Midazolam HCl 50 ml @ 1 mls/hr Q24H IV 06/08/24 20:15 06/27/24 08:50 3 MLS/HR Norepinephrine Bitartrate 32 mg/ Sodium Chloride 250 ml @ 0.938 mls/ hr Q24H IV 06/11/24 15:30 06/30/24 13:53 0.938 MLS/HR Potassium Chloride 100 ml @ 50 mls/hr Q2H IV 06/13/24 12:45 06/13/24 16:44 UNV Magnesium Sulfate/ Dextrose 100 ml @ 100 mls/hr Q1HR IV 06/13/24 13:00 06/13/24 14:59 UNV Cefepime HCl 50 ml @ 12.5 mls/hr Q8HR IV 06/13/24 14:00 UNV Fentanyl Citrate 250 ml @ 2.5 mls/hr Q24H IV 06/15/24 16:00 06/29/24 16:23 2.5 MLS/HR Sodium Chloride 10 ml QSHIFT@10,22 IV 06/17/24 22:00 07/01/24 10:09 10 ML Pantoprazole Sodium 40 mg DAILY IV 06/18/24 10:00 07/01/24 10:09 40 MG Vasopressin 20 units/Sodium Chloride 100 ml @ 9 mls/hr Q11H7M IV 06/21/24 07:45 06/23/24 23:25 9 MLS/HR Linezolid 300 ml @ 150 mls/hr Q12H IV 06/24/24 12:00 07/01/24 00:11 150 MLS/HR Enteral Nutritional Formula 1,000 ml 50ML/HR GT 06/25/24 10:30 Amiodarone HCl 200 mg DAILY PO 06/26/24 13:30 07/01/24 10:09 200 MG Micafungin Sodium 100 mg/Sodium Chloride 100 ml @ 100 mls/hr DAILY IV 06/28/24 10:00 07/01/24 10:09 100 MLS/HR Albuterol 2.5 mg Q6HR NEB 06/29/24 12:40 07/01/24 11:06 2.5 MG Ipratropium [place] 0.5 mg Q6HR NEB 06/29/24 12:41 07/01/24 11:06 0.5 MG Acetylcysteine 200 mg Q6HR NEB 06/29/24 12:41 07/01/24 11:07 200 MG Gentamicin Sulfate 0 ml @ 0 mls/hr PER PHARMACY IV 06/30/24 12:45 Ceftolozane/ Tazobactam 3 gm/ Dextrose 100 ml @ 33.333 mls/ hr Q8H IV 06/30/24 18:00 07/01/24 11:38 33.333 MLS/HR objective PUL DIFF RHONCHI JVD [place] CV RR PMI DIFFUSE EXT 3+ EDEMA laboratory and microbiology Laboratory Tests 07/01/24 05:27 Test 07/01/24 05:27 Range/Units Serum Glucose 96 74-106 mg/dL Problem List SS COMPLEX INCRESEING SOB HARVEY LE EDEMA HFrEF CHRONIC AND ACUTE EF < 20% NOW WITH HEMOPTYSIS TACHYCARDIA CTA LUNG C/W PE 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 Large filling defect right pulmonary artery consistent with pulmonary embolus. No film findings of pulmonary artery hypertension. No pulmonary emboli noted on the left. 2. Findings are also suggestive of right heart strain. 3. Large right pleural effusion. HEPARIN DRIP\ LASIX DRIP WILL START ORAL ANTICOAGULATION IN 48 HOURS ABX LE ARTERIAL DOPPLER NO SIGNIFICANT DISEASE FOR LIMB RISK DC HEPARIN START ELIQUIS S/P CT HEAD CURRENTLY ON BiPAP IMPROVING RESP STATUS 7.32/59/69 TITRATE BIPAP THORACENTESIS ULTRASOUND GUIDED MRI OF ABD S/P THORACENTESIS 2200 CC DRAINED CXR BILATERAL INFILTRATE PROMINENT MEDIASTINUM CARDIOMEGALY HYPOKALEMIA BEING CORRECTED A FLUTTER S/P CARDIOVERSION SINUS RHYTHM TITRATE OFF LEVOPHED USE ALBUMIN FOR PRESSURE SPORT DC LASIX DRIP START D5 1/4 NS AT 125 CC/HR BMP/ BNP DAILY cont volume replacement contraction alkalosis leukocytosis improved monitor h/h HYPERNATREMIA IMPROVING DIAMOX X 1 DOSE HYPERNATREMIA CORRECTED DC IV FLUID CONT TPN INCREASE VENT SETTING TO AC 22 EPISODE OF [place] CORRECT ACIDOSIS MAG SO4 2 G TITRATE OFF LEVOPHED DIAMOX TREAT METABOLIC ALKALOSIS RESP ACIDOSIS START TITRATING OFF SEDATION IMPROVED RESP PARAMETERS LIVER ENZYMES STILL ELEVATED wean off sedation CORRECT HYPERNATREMIA CHECK BNP AICD IMPLANTATION PT DEVELOPED PNEUMOTHORAX DELAYING EXTUBATION PNEUMOTHORAX IMPROVED LEUKOCYTOSIS AGAIN ELECTROLYTES BETTER NOW CXR CONSISTENT WITH CHF CORRECT K AND Mg CHANGE ABX VANCO AND AZTREONAM EPOGEN IRON DC ELIQUIS START LOVENOX WBC CONTINUES TO INCREASE NEEDS SURGICAL DEBRIDEMENT OF DECUB CXR WORSENING EFFUSION AND FLUID OVERLOAD START LASIX DRIP CXR CONSISTENT WITH MULTIFOCAL CONSOLIDATION EXCELLENT DIURESIS WITH LASIX DRIP MONITOR FLUID STATUS NEEDS DEBRIDEMENT OF DECUB WITH PERSISTENT LEUKOCYTOSIS CONSIDER BRONCHOSCOPY TO CLEAR CONSOLIDATION/ MUCUS CXR WORSENING LEFT SIDED EFFUSION/ INFILTRATE LEUKOCYTOSIS WORSENING DESPITE WOUND DEBRIDEMENT RECOMMEND BRONCHOSCOPY S/P DEBRIDEMENT OF STAGE IV DECUB WOUND POSITIVE FOR PSEUDOMONAS/ ENTEROCOCCUS URINE YEAST LEUKOCYTOSIS TRENDING DOWN CHECK CXR CHECK BNP CORRECT K PROGRESSIVE ANEMIA NEEDS ANTICOAGULATION FOR PE CONSIDER BRONCHOSCOPY WORSENING WBC IMPROVING WBC SEVERE ANEMIA START IRON WITH EPOGEN METABOLIC ALKALOSIS AGAIN DIAMOX CXR BETTER AERATION ON THE LEFT SIDED ONE DOSE OF IRON GIVEN ONE DOSE OF EPOGEN LEUKOCYTOSIS IMPROVING CHECK UA DIAMOX FOR WORSENING METABOLIC ALKALOSIS DECREASE REP RATE FOR RESP ALKALOSIS IRON STUDY FROM 06/21/24 LOW SERUM IRON LOW TIBC FERRITIN HIGH SECONDARY TO BEING ACUTE PHASE REACTANT S/P TRACHEOSTOMY NOW PT REQUIRES 2 UNITS OF PRBC CHECK UA CBC IN AM BNP IN AM ABG Dietary Evaluation Review Comments: 1. consider Renal Specific 70g protein restriction witn 2GNa, 3K, low Phos, if no diaylsis needed. 2. consider Renal Standard 2gn, 3K, low phosphate diet if Pt is on dialysis. 3. encourage and monitor po intake to meet 75% of his needs. Expected Outcomes/Goals: avoid uremic symptoms, gradual healed wounds. Plan discussed with: Patient Critical Care Time(min): 35 ISSAC SHAH MD Jul 01, 2024 13:23
--- NOTE | 2024-07-01 14:07 | DVHPNRES ---
Progress Note Date Seen: Jul 01, 2024 Resident Creating Document: BRENNON GAMINO RESIDENT Medical Necessity Reason Pt with a Central, PICC or Fol: Yes The following are medically ne: Central Line, Olsen Catheter Reason for olsen catheter: Strict I&O Objective vital signs Vital Sign Date Time Temp Pulse Resp B/P (MAP) Pulse Ox O2 Delivery O2 Flow Rate FiO2 07/01/24 13:48 81 27 121/37 (65) 100 30 07/01/24 12:00 98.9 98.9 07/01/24 10:00 Mechanical Ventilator+ Total Intake and Output 06/30/24 06/30/24 07/01/24 14:59 22:59 06:59 Intake Total 473.5 ml 555.75 ml 324.458 ml Output Total 910 ml 1050 ml Balance 473.5 ml -354.25 ml -725.542 ml medications Current Medications Medications Dose Ordered Sig/Amy Route Start Time Stop Time Status Last Admin Dose Admin Potassium Chloride 100 ml @ 50 mls/hr Q2H IV 05/27/24 17:15 05/28/24 01:14 UNV Diagnostic Test (Pha) 1 strip Q6HR 05/30/24 18:00 07/01/24 12:30 1 STRIP Insulin Human Regular FOLLOW SLIDING SCALE Q6HR SC 05/30/24 18:00 06/24/24 01:27 2 UNITS Dextrose 50 ml UD IV 05/30/24 12:15 Acetaminophen 650 mg Q6HP PRN PO 05/31/24 19:30 06/10/24 14:37 650 MG Midazolam HCl 50 ml @ 1 mls/hr Q24H IV 06/08/24 20:15 06/27/24 08:50 3 MLS/HR Norepinephrine Bitartrate 32 mg/ Sodium Chloride 250 ml @ 0.938 mls/ hr Q24H IV 06/11/24 15:30 06/30/24 13:53 0.938 MLS/HR Potassium Chloride 100 ml @ 50 mls/hr Q2H IV 06/13/24 12:45 06/13/24 16:44 UNV Magnesium Sulfate/ Dextrose 100 ml @ 100 mls/hr Q1HR IV 06/13/24 13:00 06/13/24 14:59 UNV Cefepime HCl 50 ml @ 12.5 mls/hr Q8HR IV 06/13/24 14:00 UNV Fentanyl Citrate 250 ml @ 2.5 mls/hr Q24H IV 06/15/24 16:00 06/29/24 16:23 2.5 MLS/HR Sodium Chloride 10 ml QSHIFT@10,22 IV 06/17/24 22:00 07/01/24 10:09 10 ML Pantoprazole Sodium 40 mg DAILY IV 06/18/24 10:00 07/01/24 10:09 40 MG Vasopressin 20 units/Sodium Chloride 100 ml @ 9 mls/hr Q11H7M IV 06/21/24 07:45 06/23/24 23:25 9 MLS/HR Linezolid 300 ml @ 150 mls/hr Q12H IV 06/24/24 12:00 07/01/24 00:11 150 MLS/HR Enteral Nutritional Formula 1,000 ml 50ML/HR GT 06/25/24 10:30 Amiodarone HCl 200 mg DAILY PO 06/26/24 13:30 07/01/24 10:09 200 MG Micafungin Sodium 100 mg/Sodium Chloride 100 ml @ 100 mls/hr DAILY IV 06/28/24 10:00 07/01/24 10:09 100 MLS/HR Albuterol 2.5 mg Q6HR NEB 06/29/24 12:40 07/01/24 11:06 2.5 MG Ipratropium [place] 0.5 mg Q6HR NEB 06/29/24 12:41 07/01/24 11:06 0.5 MG Acetylcysteine 200 mg Q6HR NEB 06/29/24 12:41 07/01/24 11:07 200 MG Gentamicin Sulfate 0 ml @ 0 mls/hr PER PHARMACY IV 06/30/24 12:45 Ceftolozane/ Tazobactam 3 gm/ Dextrose 100 ml @ 33.333 mls/ hr Q8H IV 06/30/24 18:00 07/01/24 11:38 33.333 MLS/HR laboratory and microbiology Laboratory Tests 07/01/24 05:27 Test 07/01/24 05:27 Range/Units Serum Glucose 96 74-106 mg/dL Microbiology Date/Time Source Procedure Growth Status 06/29/24 18:08 Bronchial Washings Gram Stain - Final Resulted 06/29/24 18:08 Bronchial Washings Respiratory Culture - Preliminary Resulted 06/28/24 10:30 Chest Gram Stain - Final Resulted 06/28/24 10:30 Chest Anaerobic Culture - Preliminary Resulted 06/28/24 10:30 Aerobic Culture - Final Pseudomonas aeruginosa Resulted 06/25/24 14:45 Pleural Fluid Gram Stain - Final Complete 06/25/24 14:45 Body Fluid Culture - Final Pseudomonas aeruginosa Complete 06/25/24 06:40 Urine - [place] Urine Culture - Final Yeast, not Radha albicans Complete 06/24/24 20:21 Blood Blood Culture - Final NO GROWTH AFTER 5 DAYS OF INCUBATION. Complete Labs and/or images reviewed: Labs reviewed by me, Image(s) reviewed by me Problem List/Assessment/Plan Problem List/Assessment/Plan 63-year-old male with a history of CHF and pulmonary embolism was intubated in the ICU noted to have necrotic pressure ulcers and multiorgan failure. now on trach. Chest tube leet chest tube bubble Fischel Chest CT. Low bp needed levophed. 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 Large filling defect right pulmonary artery consistent with pulmonary embolus. No film findings of pulmonary artery hypertension. No pulmonary emboli noted on the left. 2. Findings are also suggestive of right heart strain. 3. Large right pleural effusion. Plan discussed with: Patient, Other # shock, likely cardiogenic/septic -currently on IV norepinephrine -started on vasopressin -IV micafungin # Acute exacerbation of HFrEF -EF <20%, last echo 03/12/24 Currently on Lasix drip, held started the pt on dobutamine drip, held #moderate TR -seen on echo 03/12/24 #Severe MR -seen on echo 03/12/24 #Mild aortic insufficiency with Dilated aortic root and mild av calcification -seen on echo 03/12/24 #Mod Pulmonary hypertension -seen on echo 03/12/24 #Atrial flutter, currently sinus rhythm -had sync cardioversion on 05/27/24 -currently on amiodarone drip, will switch to oral amiodarone #Non-sustained Vtach -currently on amiodarone drip, will switch to oral amiodarone #Ectatic ascending aorta. -seen on imaging Respiratory Limited examination secondary to patient motion artifact. Small right hydro pneumothorax with right chest tube in-situ. Moderate left pleural effusion. Possible chronically under expanded left lung (trapped lung) versus loculated pneumothorax. #Acute hypoxic resp failure due to CHF exacerbation/pneumonia/pulmonary embolism -on [facility] vent, intubated on 05/26/24 -reintubation on 06/12/24 due to ETT leak -extubated 06/26/24 -tracheostomy tube placed 06/26/24 # Acute pulmonary embolism with Right heart strain -seen on CT angio -pt was started on heparin drip, later was switched to eliquis -currently on prophylactic Lovenox, will switch to therapeutic dose after surgery, based on risk/benefit # Large right pleural effusion -s/p multiple thoracentesis -pt has currently [address] 06/16/24 shows Moderate right pleural fluid collection with near complete collapse of the right lower lobe chest tube in place within the collection. #Right lower lobe atelectasis -seen on CT #Moderate right anterior pneumothorax --pt has currently 3 chest tubes #Multiple mucus plugs -pt had multiple bronchoscopies #Pneumonia, community acquired, gram +/- -sputum culture reveals Staph aureus and Pseudomonas -IV antibiotics based on culture sensitivity -Micafungin for infection # Small left anterior pneumothorax -seen on CT Monitor # Moderate left pleural fluid collection with complete collapse of the left lower lobe s/p thoracentesis -seen on CT -IV Lasix Radiology consulted for Thoracentesis, ultrasound ordered Chest USG s/p thoracentesis s/p thoracotomy and chest tube placemetn # left lower lobe atelectasis Seen on CT # pneumomediastinum -Small amount of pneumomediastinum, may be tracking from the bilateral pneumothoraces Nephrology # Hypernatremia -corrected # Hyperkalemia -corrected # hypokalemia Corrected # RADHA likely due to vasomotor nephropathy Monitor BMP # metabolic alkalosis with respiratory alkalosis Monitor ABG # hypophosphatemia Corrected Hematology/oncology # anemia, normocytic, severe 1 unit of PRBC transfusion Monitor # coagulopathy likely due to sepsis Monitor GI # Transaminitis likely due to sepsis -monitor # Moderate colonic diverticulosis -seen on imaging # Cholelithiasis -seen on imaging # complicated UTI -IV antibiotics based on culture -urine culture reveals Pseudomonas and Enterococcus Ceftolozane Cephalosporin antibiotic Tazobactam Beta-lactamase inhibitor -IV micafungin Infectious disease #Sepsis with septic shock -IV antibiotics based on culture results -currently on norepinephrine drip and vasopressin drip Repeat blood culture and send tip culture of a line #Sacral Wound, Unstageable -likely infected -IV antibiotics -surgery consulted for Wound debridement -had wound debridement today Lines PICC line 06/17/24 Left subclavian CVC line 06/05/24, removed 06/17/24 Right femoral A-line 06/03/24, discontinued 06/24/2024 Olsen catheter 05/21/24 right Arterial line 06/26/23 Drips Norepi Vasopressin fentanyl Versed DVT prophylaxis Lovenox PPD prophylaxis IV Protonix Nutrition Glucerna Bowel regimen Colace Code status discussed with the fiance, for >21 min : FULL CODE Critical care time excluding procedures : 61 minutes Case discussion with Dr Abbasi Dietary Evaluation Review Comments: 1. consider Renal Specific 70g protein restriction witn 2GNa, 3K, low Phos, if no diaylsis needed. 2. consider Renal Standard 2gn, 3K, low phosphate diet if Pt is on dialysis. 3. encourage and monitor po intake to meet 75% of his needs. Expected Outcomes/Goals: avoid uremic symptoms, gradual healed wounds. BRENNON GAMINO RESIDENT Jul 01, 2024 14:07
[2024-07-01] MEDS: IOHEXOL 300 MG/ML 100ML BOTTLE IJ ONE (17:01)
--- NOTE | 2024-07-01 21:49 | DVH ---
EXAM: CT CHEST WITH CONTRAST History: FOLLOW UP THORACOTOMY Comparison Study: 06/27/2024 TECHNIQUE: A digital weekday babysitter image was obtained. During the uneventful, intravenous administration of c ontrast material, multislice data acquisition was obtained through the chest. The data set was subseq uently reconstructed into axial, coronal, and sagittal images. Radiation Dose : CTDI vol 14.74 mGy, DLP 652.96 mGy*cm. Findings: Lungs: Decreased size of bilateral pneumothoraces with bilateral chest tubes in situ. Pleura: Small bilateral pleural effusions. Heart/Great vessels: No cardiomegaly or pericardial effusion. Mediastinum: Unremarkable Soft tissues/Bones: Moderate left chest wall subcutaneous emphysema. Enteric tube terminates in the stomach. The partially visualized upper abdomen is within normal limit s. Impression: 1. Decreased size of bilateral pneumothoraces with bilateral chest tubes in situ. Superimposed parase ptal emphysema is not excluded. 2. Small bilateral pleural effusions, improved from prior. 3. Moderate left chest wall subcutaneous emphysema.
[2024-07-02] VITALS (109 sets, daily range): BP systolic 85–141; BP diastolic 34–69; PULSE 73–98; RESP 0–38; TEMP 97.8–99.6; O2SAT 98–100
--- NOTE | 2024-07-02 04:19 | DVH ---
CHEST RADIOGRAPH Indication: Trach tube placement/Chest tube placement x3 Technique: Single frontal view of the chest was obtained Comparison: Chest radiograph dated 07/01/2024 FINDINGS: Lines and Tubes: Left apically oriented chest tube, right chest tube, enteric tube, right upper lobe pigtail catheter, right PICC line and the tracheostomy tube are unchanged. Lungs: Diffuse bilateral airspace disease, unchanged. Pleura: Increased left pneumothorax. Bilateral pleural effusions. Cardiomediastinal contours: Stable cardiovascular silhouette. Bones: No acute osseous abnormality. Diffuse subcutaneous emphysema in the chest. IMPRESSION: 1. Increased left pneumothorax despite the presence of a left chest tube. 2. Other lines and tubes unchanged in position. 3. Bilateral airspace disease similar to prior study.
[2024-07-02 05:29] LABS: Basophils # (auto) 0.1 10 ^3/uL (0-0.2); Basophils % (auto) 0.9 % (0.0-2.0); Eosinophils # (auto) 0.4 10 ^3/uL (0-0.8); Eosinophils % (auto) 5.1 % (0.0-7.0); Hematocrit 25.7 % (41.0-53.0); Hemoglobin 8.4 g/dL (13.5-17.5); Lymphocytes # (auto) 1.3 10 ^3/uL (0.4-5.4); Lymphocytes % (auto) 18.3 % (10.0-50.0); Mean Corpuscular Hemoglobin 27.3 pg (28.0-32.0); Mean Corpuscular Hgb Conc. 32.9 g/dL (32.0-36.0); Mean Corpuscular Volume 82.8 fL (80.0-100.0); Monocytes # (auto) 0.4 10 ^3/uL (0-1.3); Monocytes % (auto) 5.9 % (0.0-12.0); Neutrophils # (auto) 4.8 10 ^3/uL (1.6-8.6); Neutrophils % (auto) 69.8 % (37.0-80.0); Nucleated Red Blood Cells % 0.2 %; Platelet Count (auto) 140 10^3/uL (140-450); Red Cell Distribution Width 18.8 % (11.8-14.3)
--- NOTE | 2024-07-02 10:34 | DVHPN2 ---
Progress Note Date Seen: Jul 02, 2024 Medical Necessity Reason Pt with a Central, PICC or Fol: Yes The following are medically ne: Central Line, Olsen Catheter Reason for olsen catheter: Strict I&O Objective vital signs Vital Sign Date Time Temp Pulse Resp B/P (MAP) Pulse Ox O2 Delivery O2 Flow Rate FiO2 07/02/24 10:15 79 10 112/43 (66) 100 07/02/24 10:02 30 07/02/24 10:00 Mechanical Ventilator+ 07/02/24 08:00 97.8 97.8 Total Intake and Output 07/01/24 07/01/24 07/02/24 15:00 23:00 07:00 Intake Total 240.832 ml 518.00 ml 408.33 ml Output Total 1155 ml 1050 ml Balance 240.832 ml -637.00 ml -641.67 ml medications Current Medications Medications Dose Ordered Sig/Amy Route Start Time Stop Time Status Last Admin Dose Admin Potassium Chloride 100 ml @ 50 mls/hr Q2H IV 05/27/24 17:15 05/28/24 01:14 UNV Diagnostic Test (Pha) 1 strip Q6HR 05/30/24 18:00 07/02/24 06:00 1 STRIP Insulin Human Regular FOLLOW SLIDING SCALE Q6HR SC 05/30/24 18:00 06/24/24 01:27 2 UNITS Dextrose 50 ml UD IV 05/30/24 12:15 Acetaminophen 650 mg Q6HP PRN PO 05/31/24 19:30 06/10/24 14:37 650 MG Midazolam HCl 50 ml @ 1 mls/hr Q24H IV 06/08/24 20:15 06/27/24 08:50 3 MLS/HR Norepinephrine Bitartrate 32 mg/ Sodium Chloride 250 ml @ 0.938 mls/ hr Q24H IV 06/11/24 15:30 06/30/24 13:53 0.938 MLS/HR Potassium Chloride 100 ml @ 50 mls/hr Q2H IV 06/13/24 12:45 06/13/24 16:44 UNV Magnesium Sulfate/ Dextrose 100 ml @ 100 mls/hr Q1HR IV 06/13/24 13:00 06/13/24 14:59 UNV Cefepime HCl 50 ml @ 12.5 mls/hr Q8HR IV 06/13/24 14:00 UNV Fentanyl Citrate 250 ml @ 2.5 mls/hr Q24H IV 06/15/24 16:00 06/29/24 16:23 2.5 MLS/HR Sodium Chloride 10 ml QSHIFT@10,22 IV 06/17/24 22:00 07/02/24 10:15 10 ML Pantoprazole Sodium 40 mg DAILY IV 06/18/24 10:00 07/02/24 10:14 40 MG Vasopressin 20 units/Sodium Chloride 100 ml @ 9 mls/hr Q11H7M IV 06/21/24 07:45 06/23/24 23:25 9 MLS/HR Linezolid 300 ml @ 150 mls/hr Q12H IV 06/24/24 12:00 07/02/24 00:00 150 MLS/HR Enteral Nutritional Formula 1,000 ml 50ML/HR GT 06/25/24 10:30 Amiodarone HCl 200 mg DAILY PO 06/26/24 13:30 07/02/24 10:14 200 MG Micafungin Sodium 100 mg/Sodium Chloride 100 ml @ 100 mls/hr DAILY IV 06/28/24 10:00 07/02/24 08:49 100 MLS/HR Albuterol 2.5 mg Q6HR NEB 06/29/24 12:40 07/02/24 06:33 2.5 MG Ipratropium [place] 0.5 mg Q6HR NEB 06/29/24 12:41 07/02/24 06:34 0.5 MG Acetylcysteine 200 mg Q6HR NEB 06/29/24 12:41 07/02/24 06:34 200 MG Ceftolozane/ Tazobactam 3 gm/ Dextrose 100 ml @ 33.333 mls/ hr Q8H IV 06/30/24 18:00 07/02/24 10:15 33.333 MLS/HR laboratory and microbiology Laboratory Tests 07/02/24 04:50 07/01/24 05:27 Test 07/01/24 05:27 Range/Units Serum Glucose 96 74-106 mg/dL Problem List/Assessment/Plan Problem List/Assessment/Plan 06/19/24 notified by nurses that they are unable to obtain a consent from family. As debridement does not constitute a surgical emergency I will post pone an operation until an appropriate consent is obtained, please notify me when consent accomplished 06/27/24 TRACHEOSTOMY OK,no problems reported, cxr stable .will sign off please recall if needed 06/29/24 one day s/p left thoracotomy and decortication, cxr markedly improved, small air leak via left chest tube, voluminous ct output, mostly irrigation fluid, H/H ok, will check coags, need to DC Lovenox 06/30/24 cxr stable, improved. no air leak, outp[ut serosanguineous, surgically stable. 07/02/24 sudden development of significant air leak, most likely a ruptured emphysematous bleb, air leak slightly better today than it was yesterday, CT scan shows diminishing pneumothorax with better lung expansion, subcutaneous emphysema. continue as is for now. Plan discussed with: Patient, Other Dietary Evaluation Review Comments: 1. consider Renal Specific 70g protein restriction witn 2GNa, 3K, low Phos, if no diaylsis needed. 2. consider Renal Standard 2gn, 3K, low phosphate diet if Pt is on dialysis. 3. encourage and monitor po intake to meet 75% of his needs. Expected Outcomes/Goals: avoid uremic symptoms, gradual healed wounds. JIHAN HENDERSON MD Jul 02, 2024 10:34
--- NOTE | 2024-07-02 13:10 | DVHPN2 ---
Progress Note - Dictate Date Seen: Jul 02, 2024 Medical Necessity Reason Pt with a Central, PICC or Fol: Yes The following are medically ne: Central Line, Olsen Catheter Reason for olsen catheter: Strict I&O Subjective PT WITH SS COMPLEX INCRESEING SOB HARVEY LE EDEMA HFrEF CHRONIC AND ACUTE NOW WITH HEMOPTYSIS TACHYCARDIA CTA LUNG C/W PE ACUTE vital signs Vital Sign Date Time Temp Pulse Resp B/P (MAP) Pulse Ox O2 Delivery O2 Flow Rate FiO2 07/02/24 12:00 78 07/02/24 12:00 98.0 20 102/37 (58) 100 98.0 07/02/24 12:00 Mechanical Ventilator+ 30 30 Total Intake and Output 07/01/24 07/01/24 07/02/24 15:00 23:00 07:00 Intake Total 240.832 ml 518.00 ml 408.33 ml Output Total 1155 ml 1050 ml Balance 240.832 ml -637.00 ml -641.67 ml medications Current Medications Medications Dose Ordered Sig/Amy Route Start Time Stop Time Status Last Admin Dose Admin Potassium Chloride 100 ml @ 50 mls/hr Q2H IV 05/27/24 17:15 05/28/24 01:14 UNV Diagnostic Test (Pha) 1 strip Q6HR 05/30/24 18:00 07/02/24 12:25 1 STRIP Insulin Human Regular FOLLOW SLIDING SCALE Q6HR SC 05/30/24 18:00 06/24/24 01:27 2 UNITS Dextrose 50 ml UD IV 05/30/24 12:15 Acetaminophen 650 mg Q6HP PRN PO 05/31/24 19:30 06/10/24 14:37 650 MG Midazolam HCl 50 ml @ 1 mls/hr Q24H IV 06/08/24 20:15 06/27/24 08:50 3 MLS/HR Norepinephrine Bitartrate 32 mg/ Sodium Chloride 250 ml @ 0.938 mls/ hr Q24H IV 06/11/24 15:30 06/30/24 13:53 0.938 MLS/HR Potassium Chloride 100 ml @ 50 mls/hr Q2H IV 06/13/24 12:45 06/13/24 16:44 UNV Magnesium Sulfate/ Dextrose 100 ml @ 100 mls/hr Q1HR IV 06/13/24 13:00 06/13/24 14:59 UNV Cefepime HCl 50 ml @ 12.5 mls/hr Q8HR IV 06/13/24 14:00 UNV Fentanyl Citrate 250 ml @ 2.5 mls/hr Q24H IV 06/15/24 16:00 06/29/24 16:23 2.5 MLS/HR Sodium Chloride 10 ml QSHIFT@10,22 IV 06/17/24 22:00 07/02/24 10:15 10 ML Pantoprazole Sodium 40 mg DAILY IV 06/18/24 10:00 07/02/24 10:14 40 MG Vasopressin 20 units/Sodium Chloride 100 ml @ 9 mls/hr Q11H7M IV 06/21/24 07:45 06/23/24 23:25 9 MLS/HR Linezolid 300 ml @ 150 mls/hr Q12H IV 06/24/24 12:00 07/02/24 11:46 150 MLS/HR Enteral Nutritional Formula 1,000 ml 50ML/HR GT 06/25/24 10:30 Amiodarone HCl 200 mg DAILY PO 06/26/24 13:30 07/02/24 10:14 200 MG Micafungin Sodium 100 mg/Sodium Chloride 100 ml @ 100 mls/hr DAILY IV 06/28/24 10:00 07/02/24 08:49 100 MLS/HR Albuterol 2.5 mg Q6HR NEB 06/29/24 12:40 07/02/24 11:37 2.5 MG Ipratropium [place] 0.5 mg Q6HR NEB 06/29/24 12:41 07/02/24 11:37 0.5 MG Acetylcysteine 200 mg Q6HR NEB 06/29/24 12:41 07/02/24 11:37 200 MG Ceftolozane/ Tazobactam 3 gm/ Dextrose 100 ml @ 33.333 mls/ hr Q8H IV 06/30/24 18:00 07/02/24 10:15 33.333 MLS/HR objective PUL DIFF RHONCHI JVD ANGLE OF [place] CV RR PMI DIFFUSE EXT 3+ EDEMA laboratory and microbiology Laboratory Tests 07/02/24 04:50 07/01/24 05:27 Test 07/01/24 05:27 Range/Units Serum Glucose 96 74-106 mg/dL Problem List SS COMPLEX INCRESEING SOB HARVEY LE EDEMA HFrEF CHRONIC AND ACUTE EF < 20% NOW WITH HEMOPTYSIS TACHYCARDIA CTA LUNG C/W PE 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 Large filling defect right pulmonary artery consistent with pulmonary embolus. No film findings of pulmonary artery hypertension. No pulmonary emboli noted on the left. 2. Findings are also suggestive of right heart strain. 3. Large right pleural effusion. HEPARIN DRIP\ LASIX DRIP WILL START ORAL ANTICOAGULATION IN 48 HOURS ABX LE ARTERIAL DOPPLER NO SIGNIFICANT DISEASE FOR LIMB RISK DC HEPARIN START ELIQUIS S/P CT HEAD CURRENTLY ON BiPAP IMPROVING RESP STATUS 7.32/59/69 TITRATE BIPAP THORACENTESIS ULTRASOUND GUIDED MRI OF ABD S/P THORACENTESIS 2200 CC DRAINED CXR BILATERAL INFILTRATE PROMINENT MEDIASTINUM CARDIOMEGALY HYPOKALEMIA BEING CORRECTED A FLUTTER S/P CARDIOVERSION SINUS RHYTHM TITRATE OFF LEVOPHED USE ALBUMIN FOR PRESSURE SPORT DC LASIX DRIP START D5 1/4 NS AT 125 CC/HR BMP/ BNP DAILY cont volume replacement contraction alkalosis leukocytosis improved monitor h/h HYPERNATREMIA IMPROVING DIAMOX X 1 DOSE HYPERNATREMIA CORRECTED DC IV FLUID CONT TPN INCREASE VENT SETTING TO AC 22 EPISODE OF VT CORRECT ACIDOSIS MAG SO4 2 G TITRATE OFF LEVOPHED DIAMOX TREAT METABOLIC ALKALOSIS RESP ACIDOSIS START TITRATING OFF SEDATION IMPROVED RESP PARAMETERS LIVER ENZYMES STILL ELEVATED wean off sedation CORRECT HYPERNATREMIA CHECK BNP AICD IMPLANTATION PT DEVELOPED PNEUMOTHORAX DELAYING EXTUBATION PNEUMOTHORAX IMPROVED LEUKOCYTOSIS AGAIN ELECTROLYTES BETTER NOW CXR CONSISTENT WITH CHF CORRECT K AND Mg CHANGE ABX VANCO AND AZTREONAM EPOGEN IRON DC ELIQUIS START LOVENOX WBC CONTINUES TO INCREASE NEEDS SURGICAL DEBRIDEMENT OF DECUB CXR WORSENING EFFUSION AND FLUID OVERLOAD START LASIX DRIP CXR CONSISTENT WITH MULTIFOCAL CONSOLIDATION EXCELLENT DIURESIS WITH LASIX DRIP MONITOR FLUID STATUS NEEDS DEBRIDEMENT OF DECUB WITH PERSISTENT LEUKOCYTOSIS CONSIDER BRONCHOSCOPY TO CLEAR CONSOLIDATION/ MUCUS CXR WORSENING LEFT SIDED EFFUSION/ INFILTRATE LEUKOCYTOSIS WORSENING DESPITE WOUND DEBRIDEMENT RECOMMEND BRONCHOSCOPY S/P DEBRIDEMENT OF STAGE IV DECUB WOUND POSITIVE FOR PSEUDOMONAS/ ENTEROCOCCUS URINE YEAST LEUKOCYTOSIS TRENDING DOWN CHECK CXR CHECK BNP CORRECT K PROGRESSIVE ANEMIA NEEDS ANTICOAGULATION FOR PE CONSIDER BRONCHOSCOPY WORSENING WBC IMPROVING WBC SEVERE ANEMIA START IRON WITH EPOGEN METABOLIC ALKALOSIS AGAIN DIAMOX CXR BETTER AERATION ON THE LEFT SIDED ONE DOSE OF IRON GIVEN ONE DOSE OF EPOGEN LEUKOCYTOSIS IMPROVING CHECK UA DIAMOX FOR WORSENING METABOLIC ALKALOSIS DECREASE REP RATE FOR RESP ALKALOSIS IRON STUDY FROM 06/21/24 LOW SERUM IRON LOW TIBC FERRITIN HIGH SECONDARY TO BEING ACUTE PHASE REACTANT S/P TRACHEOSTOMY NOW PT REQUIRES 2 UNITS OF PRBC CHECK UA CBC IN AM BNP IN AM ABG Dietary Evaluation Review Comments: 1. consider Renal Specific 70g protein restriction witn 2GNa, 3K, low Phos, if no diaylsis needed. 2. consider Renal Standard 2gn, 3K, low phosphate diet if Pt is on dialysis. 3. encourage and monitor po intake to meet 75% of his needs. Expected Outcomes/Goals: avoid uremic symptoms, gradual healed wounds. Plan discussed with: Patient Critical Care Time(min): 35 ISSAC SHAH MD Jul 02, 2024 13:10
[2024-07-02] MEDS ORDERED: D5W 5% IV SCH (16:00)
[2024-07-02] MEDS ORDERED: GENTAMICIN SULFATE IV SCH (16:00)
--- NOTE | 2024-07-02 23:15 | DVHPNRES ---
Progress Note Date Seen: Jul 02, 2024 Resident Creating Document: JOSE FRANCISCO GAMINO RESIDENT Medical Necessity Reason Pt with a Central, PICC or Fol: Yes The following are medically ne: Central Line, Olsen Catheter Reason for olsen catheter: Strict I&O Objective vital signs Vital Sign Date Time Temp Pulse Resp B/P (MAP) Pulse Ox O2 Delivery O2 Flow Rate FiO2 07/02/24 21:52 86 30 96/40 (58) 100 30 07/02/24 20:00 Mechanical Ventilator+ 07/02/24 16:00 98.0 98.0 07/02/24 16:00 10 Total Intake and Output 07/01/24 07/01/24 07/02/24 15:00 23:00 07:00 Intake Total 240.832 ml 518.00 ml 708.33 ml Output Total 1155 ml 1050 ml Balance 240.832 ml -637.00 ml -341.67 ml medications Current Medications Medications Dose Ordered Sig/Amy Route Start Time Stop Time Status Last Admin Dose Admin Potassium Chloride 100 ml @ 50 mls/hr Q2H IV 05/27/24 17:15 05/28/24 01:14 UNV Diagnostic Test (Pha) 1 strip Q6HR 05/30/24 18:00 07/02/24 17:39 1 STRIP Insulin Human Regular FOLLOW SLIDING SCALE Q6HR SC 05/30/24 18:00 06/24/24 01:27 2 UNITS Dextrose 50 ml UD IV 05/30/24 12:15 Acetaminophen 650 mg Q6HP PRN PO 05/31/24 19:30 06/10/24 14:37 650 MG Midazolam HCl 50 ml @ 1 mls/hr Q24H IV 06/08/24 20:15 06/27/24 08:50 3 MLS/HR Norepinephrine Bitartrate 32 mg/ Sodium Chloride 250 ml @ 0.938 mls/ hr Q24H IV 06/11/24 15:30 06/30/24 13:53 0.938 MLS/HR Potassium Chloride 100 ml @ 50 mls/hr Q2H IV 06/13/24 12:45 06/13/24 16:44 UNV Magnesium Sulfate/ Dextrose 100 ml @ 100 mls/hr Q1HR IV 06/13/24 13:00 06/13/24 14:59 UNV Cefepime HCl 50 ml @ 12.5 mls/hr Q8HR IV 06/13/24 14:00 UNV Fentanyl Citrate 250 ml @ 2.5 mls/hr Q24H IV 06/15/24 16:00 06/29/24 16:23 2.5 MLS/HR Sodium Chloride 10 ml QSHIFT@10,22 IV 06/17/24 22:00 07/02/24 21:54 10 ML Pantoprazole Sodium 40 mg DAILY IV 06/18/24 10:00 07/02/24 10:14 40 MG Vasopressin 20 units/Sodium Chloride 100 ml @ 9 mls/hr Q11H7M IV 06/21/24 07:45 06/23/24 23:25 9 MLS/HR Linezolid 300 ml @ 150 mls/hr Q12H IV 06/24/24 12:00 07/02/24 11:46 150 MLS/HR Enteral Nutritional Formula 1,000 ml 50ML/HR GT 06/25/24 10:30 Amiodarone HCl 200 mg DAILY PO 06/26/24 13:30 07/02/24 10:14 200 MG Micafungin Sodium 100 mg/Sodium Chloride 100 ml @ 100 mls/hr DAILY IV 06/28/24 10:00 07/02/24 08:49 100 MLS/HR Albuterol 2.5 mg Q6HR NEB 06/29/24 12:40 07/02/24 17:58 2.5 MG Ipratropium [place] 0.5 mg Q6HR NEB 06/29/24 12:41 07/02/24 17:58 0.5 MG Acetylcysteine 200 mg Q6HR NEB 06/29/24 12:41 07/02/24 17:58 200 MG Ceftolozane/ Tazobactam 3 gm/ Dextrose 100 ml @ 33.333 mls/ hr Q8H IV 06/30/24 18:00 07/02/24 17:47 33.333 MLS/HR Examination General Appearance: Overall comfortable HEENT: Atraumatic Neck: Other (tracheostomy) Lungs: Other (MV sounds) Chest/Breasts: Other (Two right-sided chest tubes; and one left-sided chest tube) Cardiovascular: Regular rate, Normal S1, Normal S2 Abdomen: Normal bowel sounds, Soft Genitourinary: Other (Olsen's) Neuro: Other (Sedated) Psych/Mental Status: Other (Sedated) laboratory and microbiology Laboratory Tests 07/02/24 04:50 07/01/24 05:27 Test 07/01/24 05:27 Range/Units Serum Glucose 96 74-106 mg/dL Microbiology Date/Time Source Procedure Growth Status 06/29/24 18:08 Bronchial Washings Gram Stain - Final Resulted 06/29/24 18:08 Respiratory Culture - Preliminary Pseudomonas aeruginosa Resulted 06/28/24 10:30 Chest Gram Stain - Final Resulted 06/28/24 10:30 Chest Anaerobic Culture - Preliminary Resulted 06/28/24 10:30 Aerobic Culture - Final Pseudomonas aeruginosa Resulted 06/25/24 14:45 Pleural Fluid Gram Stain - Final Complete 06/25/24 14:45 Body Fluid Culture - Final Pseudomonas aeruginosa Complete 06/25/24 06:40 Urine - Olsen [place] Urine Culture - Final Yeast, not Radha albicans Complete 06/24/24 20:21 Blood Blood Culture - Final NO GROWTH AFTER 5 DAYS OF INCUBATION. Complete Labs and/or images reviewed: Labs reviewed by me, Image(s) reviewed by me Problem List/Assessment/Plan Problem List/Assessment/Plan ICU Course: A 63-year-old male with a history of heart failure with reduced ejection fraction 20%, severe mitral regurgitation, dilated aortic root of 4.9 cm, moderate pulmonary arterial hypertension, pulmonary embolism, congestive heart failure (CHF) and pulmonary embolism was intubated in the ICU. He developed necrotic pressure ulcers and multiorgan failure, large right pleural effusion, right heart strain, right pulmonary artery embolus, leading to a tracheostomy. A chest tube was placed, and a chest CT was performed. Due to low blood pressure, he required Levophed. Initially was on BiPAP, eventually needed intubation, status post trach, now on minimal vent settings. Hospitalization day: 43 A. Neurolgy: #Acute metabolic/toxic encephalopathy in the setting of septic shock, improved. 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 Cardiology: # Acute on chronic systolic CHF # heart failure with reduced ejection fraction: Ejection fraction of 20%. # mild AV calcification # severe mitral regurgitation # dilated aortic root 4.9 cm # Atrial flutter, currently sinus rhythm: had sync cardioversion on 05/27/24 # Non-sustained Vtach C. Respiratory: #Acute hypoxic respiratory failure due to Pseudomonas aeruginosa pneumonia, pleural effusions, and pulmonary embolism: on [facility] vent, intubated on 05/26/24, reintubation on 06/12/24 due to ETT leak, extubated 06/26/24, tracheostomy tube placed 06/26/24, trach collar trials started on 07/02/2024. #Septic shock due to Pseudomonas aeruginosa pneumonia #Pleural effusions s/p three chest tubes (two on the right; one on the left) #moderate pulmonary arterial hypertension #large right pulmonary artery embolus #right hydro pneumothorax with right chest tube in-situ. #Moderate left pleural effusion. Possible chronically under expanded left lung (trapped lung) versus loculated pneumothorax: Facial/surgery team on board, repeat CT chest shows subcutaneous emphysema no surgical intervention. #Large right pleural effusion: s/p multiple thoracentesis, pt has currently 2 chest tubes & last CT 06/16/24 shows Moderate right pleural fluid collection with near complete collapse of the right lower lobe chest tube in place within the collection. #Right lower lobe atelectasis, mildly improved #Multiple mucus plugs status post multiple bronchoscopies #Pneumonia, community acquired, gram +/-, possible superseded fungal infection: Micafungin for infection #pneumomediastinum, hemodynamically stable #Increased left pneumothorax despite the presence of a left chest tube. D. Gastrointenstinal: # Transaminitis likely due to sepsis # Moderate colonic diverticulosis # Cholelithiasis, without cholecystitis. # nutrition: Glucerna # constipation: On Colace E. Geniotourinary: Uncomplicated presumably F. Infectious Disease: # complicated UTI: urine culture reveals Pseudomonas and Enterococcus, appropriately on antibiotics asymptomatic presumably # shock, likely cardiogenic/septic: Negative for hepatitis-B, hepatitis-C, HIV, # Sacral Wound, Unstageable: Status post wound debridement wound care to continue G. Hematology & Oncology: # anemia, normocytic, severe: s/p 1 unit of PRBC transfusion # coagulopathy likely due to sepsis, no active bleeding noted presumably. H. Nephrology: renal function satisfactory. # Hypernatremia, corrected # Hyperkalemia, corrected # hypokalemia , Corrected # RADHA likely due to vasomotor nephropathy, improved monitor BMP closely # metabolic alkalosis with respiratory alkalosis, improved # hypophosphatemia I. Endocrine: # prediabetic with HbA1c of 6.1 J. MSK: # ICU myopathy: Low muscle mass extremely weak K. Prophylaxis: PPI: Pantoprazole DVT: SCDs L. Lines & Drains (with insertion date): PICC line 06/17/24 Left subclavian CVC line 06/05/24, removed 06/17/24 Right femoral A-line 06/03/24, discontinued 06/24/2024 Olsen catheter 05/21/24 right Arterial line 06/26/23 N. Disposition: Remains in [place], the patient has a fiancee was updated yesterday for healthy to questions O. Vent Settings: Via trach patient is on PEEP of 5, FiO2 of 40% AC VC The plan was discussed with the ICU attending Dr. Clayton. The patient care consists of total 86 minutes of critical care time excluding the procedures and including trach collar trial Dictated by Jose Francisco Gamino MD with 3M MModal Fluency. Plan discussed with: Patient, Other Dietary Evaluation Review Comments: 1. consider Renal Specific 70g protein restriction witn 2GNa, 3K, low Phos, if no diaylsis needed. 2. consider Renal Standard 2gn, 3K, low phosphate diet if Pt is on dialysis. 3. encourage and monitor po intake to meet 75% of his needs. Expected Outcomes/Goals: avoid uremic symptoms, gradual healed wounds. Date of Service: Jul 02, 2024 Billing Provider: TIFFANY CLAYTON MD Common Visit Codes: 59755-[id number] CARE 30-74 MIN, [id number] CARE-EACH +30MIN JOSE FRANCISCO GAMINO Jul 02, 2024 23:15 TIFFANY CLAYTON MD Jul 03, 2024 17:31
[2024-07-03] VITALS (108 sets, daily range): BP systolic 84–150; BP diastolic 26–59; PULSE 64–104; RESP 0–36; TEMP 98.1–99.6; O2SAT 98–100
--- NOTE | 2024-07-03 05:15 | DVH ---
EXAM: XR Chest, 1 View CLINICAL INDICATION: trach tube/chest tube x3 placement TECHNIQUE: Frontal view of the chest. COMPARISON: XY CHEST PORTABLE on DOS: 07/02/24, XY CHEST PORTABLE on DOS: 07/01/24, XY CHEST XRAY 1 V IEW on DOS: 06/30/24, XY CHEST PORTABLE on DOS: 06/29/24, XY CHEST PORTABLE on DOS: 06/28/24 FINDINGS: LUNGS AND PLEURAL SPACES: Stable chest tubse. Persistent left pneumothorax, unchanged. Bibasilar atelectasis.. HEART: Cardiomegaly with mild congestion. MEDIASTINUM: Unremarkable. Normal mediastinal contour. BONES/JOINTS: Unremarkable. No acute fracture. SOFT TISSUES: Soft tissue emphysema of the left chest wall. TUBES, LINES AND DEVICES: Tracheostomy tube in satisfactory position. OTHER FINDINGS: . None. . .. IMPRESSION: 1. Stable chest tubse. Persistent left pneumothorax, unchanged. 2. Cardiomegaly with mild congestion.
[2024-07-03 05:37] LABS: Basophils # (auto) 0.1 10 ^3/uL (0-0.2); Eosinophils # (auto) 0.5 10 ^3/uL (0-0.8); Lymphocytes # (auto) 1.2 10 ^3/uL (0.4-5.4); Monocytes # (auto) 0.4 10 ^3/uL (0-1.3); Neutrophils # (auto) 4.6 10 ^3/uL (1.6-8.6); Nucleated Red Blood Cells % 0.2 %
[2024-07-03 05:41] LABS: Basophils % (auto) 1.1 % (0.0-2.0); Eosinophils % (auto) 6.8 % (0.0-7.0); Hematocrit 24.9 % (41.0-53.0); Hemoglobin 8.1 g/dL (13.5-17.5); Lymphocytes % (auto) 17.8 % (10.0-50.0); Mean Corpuscular Hgb Conc. 32.7 g/dL (32.0-36.0); Mean Corpuscular Volume 82.4 fL (80.0-100.0); Monocytes % (auto) 6.1 % (0.0-12.0); Neutrophils % (auto) 68.2 % (37.0-80.0); Platelet Count (auto) 129 10^3/uL (140-450); Red Blood Cells 3.02 10^6/uL (4.5-5.90); Red Cell Distribution Width 19.3 % (11.8-14.3); White Blood Cell 6.7 10^3/uL (4.4-10.8)
[2024-07-03 05:42] LABS: Alanine Aminotransferase 26 U/L (7-40); Anion Gap 8 (5-15); Aspartate Aminotransferase 29 U/L (13-40); BUN/Creatinine Ratio 33.9 (10.0-20.0); Blood Urea Nitrogen 19 mg/dL (9-23); Carbon Dioxide 24 mmol/L (20-31); Potassium 3.8 mmol/L (3.5-5.1)
[2024-07-03 05:56] LABS: Albumin 1.9 g/dL (3.2-4.8); Alkaline Phosphatase 159 U/L (46-116); Bilirubin, Total 1.8 mg/dL (0.2-1.0); Calcium 7.9 mg/dL (8.7-10.4); Chloride 113 mmol/L (98-107); Glucose 107 mg/dL (74-106); Sodium 145 mmol/L (136-145)
[2024-07-03] MEDS: fentaNYL Drip 2500mCg/250mlNS 250 ML IV SCH (06:00)
[2024-07-03 07:49] LABS: Base Excess -0.6 mmol/L (-2.0-3.0)
[2024-07-03] MEDS: FUROSEMIDE 20 MG/2 ML VIAL IV ONE (12:16)
--- NOTE | 2024-07-03 13:56 | DVHPN2 ---
Progress Note - Dictate Date Seen: Jul 03, 2024 Medical Necessity Reason Pt with a Central, PICC or Fol: Yes The following are medically ne: Central Line, Olsen Catheter Reason for olsen catheter: Strict I&O Subjective PT WITH SS COMPLEX INCRESEING SOB HARVEY LE EDEMA HFrEF CHRONIC AND ACUTE NOW WITH HEMOPTYSIS TACHYCARDIA CTA LUNG C/W PE ACUTE vital signs Vital Sign Date Time Temp Pulse Resp B/P (MAP) Pulse Ox O2 Delivery O2 Flow Rate FiO2 07/03/24 13:15 72 18 130/38 (68) 100 07/03/24 12:00 98.3 98.3 07/03/24 12:00 30 07/03/24 12:00 Mechanical Ventilator+ 07/03/24 10:00 10 Total Intake and Output 07/02/24 07/02/24 07/03/24 15:00 23:00 07:00 Intake Total 545.000 ml 248.332 ml 495.30 ml Output Total 770 ml 1042 ml Balance 545.000 ml -521.668 ml -546.70 ml medications Current Medications Medications Dose Ordered Sig/Amy Route Start Time Stop Time Status Last Admin Dose Admin Potassium Chloride 100 ml @ 50 mls/hr Q2H IV 05/27/24 17:15 05/28/24 01:14 UNV Diagnostic Test (Pha) 1 strip Q6HR 05/30/24 18:00 07/03/24 12:11 1 STRIP Insulin Human Regular FOLLOW SLIDING SCALE Q6HR SC 05/30/24 18:00 06/24/24 01:27 2 UNITS Dextrose 50 ml UD IV 05/30/24 12:15 Acetaminophen 650 mg Q6HP PRN PO 05/31/24 19:30 06/10/24 14:37 650 MG Midazolam HCl 50 ml @ 1 mls/hr Q24H IV 06/08/24 20:15 06/27/24 08:50 3 MLS/HR Norepinephrine Bitartrate 32 mg/ Sodium Chloride 250 ml @ 0.938 mls/ hr Q24H IV 06/11/24 15:30 06/30/24 13:53 0.938 MLS/HR Potassium Chloride 100 ml @ 50 mls/hr Q2H IV 06/13/24 12:45 06/13/24 16:44 UNV Magnesium Sulfate/ Dextrose 100 ml @ 100 mls/hr Q1HR IV 06/13/24 13:00 06/13/24 14:59 UNV Cefepime HCl 50 ml @ 12.5 mls/hr Q8HR IV 06/13/24 14:00 UNV Sodium Chloride 10 ml QSHIFT@10,22 IV 06/17/24 22:00 07/03/24 09:37 10 ML Pantoprazole Sodium 40 mg DAILY IV 06/18/24 10:00 07/03/24 09:37 40 MG Vasopressin 20 units/Sodium Chloride 100 ml @ 9 mls/hr Q11H7M IV 06/21/24 07:45 06/23/24 23:25 9 MLS/HR Linezolid 300 ml @ 150 mls/hr Q12H IV 06/24/24 12:00 07/03/24 12:16 150 MLS/HR Enteral Nutritional Formula 1,000 ml 50ML/HR GT 06/25/24 10:30 Amiodarone HCl 200 mg DAILY PO 06/26/24 13:30 07/03/24 09:37 200 MG Micafungin Sodium 100 mg/Sodium Chloride 100 ml @ 100 mls/hr DAILY IV 06/28/24 10:00 07/03/24 08:28 100 MLS/HR Albuterol 2.5 mg Q6HR NEB 06/29/24 12:40 07/03/24 11:31 2.5 MG Ipratropium [place] 0.5 mg Q6HR NEB 06/29/24 12:41 07/03/24 11:31 0.5 MG Acetylcysteine 200 mg Q6HR NEB 06/29/24 12:41 07/03/24 11:31 200 MG Ceftolozane/ Tazobactam 3 gm/ Dextrose 100 ml @ 33.333 mls/ hr Q8H IV 06/30/24 18:00 07/03/24 09:38 33.333 MLS/HR Dexmedetomidine HCl 400 mcg/ Dextrose 100 ml @ 3.9 mls/hr Q24H IV 07/03/24 03:45 07/03/24 04:00 3.9 MLS/HR Fentanyl Citrate 250 ml @ 2.5 mls/hr Q24H IV 07/03/24 06:00 07/03/24 06:00 2.5 MLS/HR objective PUL DIFF RHONCHI JVD [place]GLE OF [place] CV RR PMI DIFFUSE EXT 3+ EDEMA laboratory and microbiology Laboratory Tests 07/03/24 04:51 Test 07/03/24 04:51 Range/Units Serum Glucose 107 H 74-106 mg/dL Problem List SS COMPLEX INCRESEING SOB HARVEY LE EDEMA HFrEF CHRONIC AND ACUTE EF < 20% NOW WITH HEMOPTYSIS TACHYCARDIA CTA LUNG C/W PE 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 Large filling defect right pulmonary artery consistent with pulmonary embolus. No film findings of pulmonary artery hypertension. No pulmonary emboli noted on the left. 2. Findings are also suggestive of right heart strain. 3. Large right pleural effusion. HEPARIN DRIP\ LASIX DRIP WILL START ORAL ANTICOAGULATION IN 48 HOURS ABX LE ARTERIAL DOPPLER NO SIGNIFICANT DISEASE FOR LIMB RISK DC HEPARIN START ELIQUIS S/P CT HEAD CURRENTLY ON BiPAP IMPROVING RESP STATUS 7.32/69 TITRATE BIPAP THORACENTESIS ULTRASOUND GUIDED MRI OF ABD S/P THORACENTESIS 2200 CC DRAINED CXR BILATERAL INFILTRATE PROMINENT MEDIASTINUM CARDIOMEGALY HYPOKALEMIA BEING CORRECTED A FLUTTER S/P CARDIOVERSION SINUS RHYTHM TITRATE OFF LEVOPHED USE ALBUMIN FOR PRESSURE SPORT DC LASIX DRIP START D5 1/4 NS AT 125 CC/HR BMP/ BNP DAILY cont volume replacement contraction alkalosis leukocytosis improved monitor h/h HYPERNATREMIA IMPROVING DIAMOX X 1 DOSE HYPERNATREMIA CORRECTED DC IV FLUID CONT TPN INCREASE VENT SETTING TO AC 22 EPISODE OF VT CORRECT ACIDOSIS MAG SO4 2 G TITRATE OFF LEVOPHED DIAMOX TREAT METABOLIC ALKALOSIS RESP ACIDOSIS START TITRATING OFF SEDATION IMPROVED RESP PARAMETERS LIVER ENZYMES STILL ELEVATED wean off sedation CORRECT HYPERNATREMIA CHECK BNP AICD IMPLANTATION PT DEVELOPED PNEUMOTHORAX DELAYING EXTUBATION PNEUMOTHORAX IMPROVED LEUKOCYTOSIS AGAIN ELECTROLYTES BETTER NOW CXR CONSISTENT WITH CHF CORRECT K AND Mg CHANGE ABX VANCO AND AZTREONAM EPOGEN IRON DC ELIQUIS START LOVENOX WBC CONTINUES TO INCREASE NEEDS SURGICAL DEBRIDEMENT OF DECUB CXR WORSENING EFFUSION AND FLUID OVERLOAD START LASIX DRIP CXR CONSISTENT WITH MULTIFOCAL CONSOLIDATION EXCELLENT DIURESIS WITH LASIX DRIP MONITOR FLUID STATUS NEEDS DEBRIDEMENT OF DECUB WITH PERSISTENT LEUKOCYTOSIS CONSIDER BRONCHOSCOPY TO CLEAR CONSOLIDATION/ MUCUS CXR WORSENING LEFT SIDED EFFUSION/ INFILTRATE LEUKOCYTOSIS WORSENING DESPITE WOUND DEBRIDEMENT RECOMMEND BRONCHOSCOPY S/P DEBRIDEMENT OF STAGE IV DECUB WOUND POSITIVE FOR PSEUDOMONAS/ ENTEROCOCCUS URINE YEAST LEUKOCYTOSIS TRENDING DOWN CHECK CXR CHECK BNP CORRECT K PROGRESSIVE ANEMIA NEEDS ANTICOAGULATION FOR PE CONSIDER BRONCHOSCOPY WORSENING WBC IMPROVING WBC SEVERE ANEMIA START IRON WITH EPOGEN METABOLIC ALKALOSIS AGAIN DIAMOX CXR BETTER AERATION ON THE LEFT SIDED ONE DOSE OF IRON GIVEN ONE DOSE OF EPOGEN LEUKOCYTOSIS IMPROVING CHECK UA DIAMOX FOR WORSENING METABOLIC ALKALOSIS DECREASE REP RATE FOR RESP ALKALOSIS IRON STUDY FROM 06/21/24 LOW SERUM IRON LOW TIBC FERRITIN HIGH SECONDARY TO BEING ACUTE PHASE REACTANT S/P TRACHEOSTOMY NOW PT REQUIRES 2 UNITS OF PRBC CHECK UA CBC IN AM BNP IN AM ABG PT AWAKE STILL WITH PNEUMOTHORAX ABG BETTER DC PEEP Dietary Evaluation Review Comments: 1. consider Renal Specific 70g protein restriction witn 2GNa, 3K, low Phos, if no diaylsis needed. 2. consider Renal Standard 2gn, 3K, low phosphate diet if Pt is on dialysis. 3. encourage and monitor po intake to meet 75% of his needs. Expected Outcomes/Goals: avoid uremic symptoms, gradual healed wounds. Plan discussed with: Patient, Spouse Critical Care Time(min): 35 ISSAC SHAH MD Jul 03, 2024 13:56
--- NOTE | 2024-07-03 23:39 | DVHPNRES ---
Progress Note Date Seen: Jul 03, 2024 Resident Creating Document: JOSE FRANCISCO GAMINO RESIDENT Medical Necessity Reason Pt with a Central, PICC or Fol: Yes The following are medically ne: Central Line, Olsen Catheter Reason for olsen catheter: Strict I&O Objective vital signs Vital Sign Date Time Temp Pulse Resp B/P (MAP) Pulse Ox O2 Delivery O2 Flow Rate FiO2 07/03/24 23:30 72 12 135/40 (71) 100 07/03/24 22:20 30 07/03/24 22:00 Mechanical Ventilator+ 07/03/24 20:00 98.6 98.6 07/03/24 10:00 10 Total Intake and Output 07/02/24 07/02/24 07/03/24 15:00 23:00 07:00 Intake Total 545.000 ml 248.332 ml 495.30 ml Output Total 770 ml 1042 ml Balance 545.000 ml -521.668 ml -546.70 ml medications Current Medications Medications Dose Ordered Sig/Amy Route Start Time Stop Time Status Last Admin Dose Admin Potassium Chloride 100 ml @ 50 mls/hr Q2H IV 05/27/24 17:15 05/28/24 01:14 UNV Diagnostic Test (Pha) 1 strip Q6HR 05/30/24 18:00 07/03/24 18:25 1 STRIP Insulin Human Regular FOLLOW SLIDING SCALE Q6HR SC 05/30/24 18:00 06/24/24 01:27 2 UNITS Dextrose 50 ml UD IV 05/30/24 12:15 Acetaminophen 650 mg Q6HP PRN PO 05/31/24 19:30 06/10/24 14:37 650 MG Midazolam HCl 50 ml @ 1 mls/hr Q24H IV 06/08/24 20:15 06/27/24 08:50 3 MLS/HR Norepinephrine Bitartrate 32 mg/ Sodium Chloride 250 ml @ 0.938 mls/ hr Q24H IV 06/11/24 15:30 06/30/24 13:53 0.938 MLS/HR Potassium Chloride 100 ml @ 50 mls/hr Q2H IV 06/13/24 12:45 06/13/24 16:44 UNV Magnesium Sulfate/ Dextrose 100 ml @ 100 mls/hr Q1HR IV 06/13/24 13:00 06/13/24 14:59 UNV Cefepime HCl 50 ml @ 12.5 mls/hr Q8HR IV 06/13/24 14:00 UNV Sodium Chloride 10 ml QSHIFT@10,22 IV 06/17/24 22:00 07/03/24 21:36 10 ML Pantoprazole Sodium 40 mg DAILY IV 06/18/24 10:00 07/03/24 09:37 40 MG Vasopressin 20 units/Sodium Chloride 100 ml @ 9 mls/hr Q11H7M IV 06/21/24 07:45 06/23/24 23:25 9 MLS/HR Linezolid 300 ml @ 150 mls/hr Q12H IV 06/24/24 12:00 07/03/24 12:16 150 MLS/HR Enteral Nutritional Formula 1,000 ml 50ML/HR GT 06/25/24 10:30 Amiodarone HCl 200 mg DAILY PO 06/26/24 13:30 07/03/24 09:37 200 MG Micafungin Sodium 100 mg/Sodium Chloride 100 ml @ 100 mls/hr DAILY IV 06/28/24 10:00 07/03/24 08:28 100 MLS/HR Albuterol 2.5 mg Q6HR NEB 06/29/24 12:40 07/03/24 18:26 2.5 MG Ipratropium [place] 0.5 mg Q6HR NEB 06/29/24 12:41 07/03/24 18:26 0.5 MG Acetylcysteine 200 mg Q6HR NEB 06/29/24 12:41 07/03/24 18:26 200 MG Ceftolozane/ Tazobactam 3 gm/ Dextrose 100 ml @ 33.333 mls/ hr Q8H IV 06/30/24 18:00 07/03/24 18:24 33.333 MLS/HR Dexmedetomidine HCl 400 mcg/ Dextrose 100 ml @ 3.9 mls/hr Q24H IV 07/03/24 03:45 07/03/24 04:00 3.9 MLS/HR Fentanyl Citrate 250 ml @ 2.5 mls/hr Q24H IV 07/03/24 06:00 07/03/24 06:00 2.5 MLS/HR Examination General Appearance: Overall comfortable HEENT: Atraumatic Neck: Other (tracheostomy) Lungs: Other (MV sounds) Chest/Breasts: Other (Two right-sided chest tubes; and one left-sided chest tube) Cardiovascular: Regular rate, Normal S1, Normal S2 Abdomen: Normal bowel sounds, Soft Genitourinary: Other (Olsen's) Neuro: Other (Sedated) Psych/Mental Status: Other (Sedated) laboratory and microbiology Laboratory Tests 07/03/24 04:51 Test 07/03/24 04:51 Range/Units Serum Glucose 107 H 74-106 mg/dL Microbiology Date/Time Source Procedure Growth Status 06/29/24 18:08 Bronchial Washings Gram Stain - Final Resulted 06/29/24 18:08 Respiratory Culture - Preliminary Pseudomonas aeruginosa Resulted 06/28/24 10:30 Chest Gram Stain - Final Resulted 06/28/24 10:30 Chest Anaerobic Culture - Preliminary Resulted 06/28/24 10:30 Aerobic Culture - Final Pseudomonas aeruginosa Resulted 06/25/24 14:45 Pleural Fluid Gram Stain - Final Complete 06/25/24 14:45 Body Fluid Culture - Final Pseudomonas aeruginosa Complete 06/25/24 06:40 Urine - [place]lsen [place] Urine Culture - Final Yeast, not Radha albicans Complete 06/24/24 20:21 Blood Blood Culture - Final NO GROWTH AFTER 5 DAYS OF INCUBATION. Complete Labs and/or images reviewed: Labs reviewed by me, Image(s) reviewed by me Problem List/Assessment/Plan Problem List/Assessment/Plan ICU Course: A 63-year-old male with a history of heart failure with reduced ejection fraction 20%, severe mitral regurgitation, dilated aortic root of 4.9 cm, moderate pulmonary arterial hypertension, pulmonary embolism, congestive heart failure (CHF) and pulmonary embolism was intubated in the ICU. He developed necrotic pressure ulcers and multiorgan failure, large right pleural effusion, right heart strain, right pulmonary artery embolus, leading to a tracheostomy. A chest tube was placed, and a chest CT was performed. Due to low blood pressure, he required Levophed. Initially was on BiPAP, eventually needed intubation, status post trach, now on minimal vent settings. Hospitalization day: 44 A. Neurolgy: #Acute metabolic/toxic encephalopathy in the setting of septic shock, improved. 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 Cardiology: # Acute on chronic systolic CHF # heart failure with reduced ejection fraction: Ejection fraction of 20%. # mild AV calcification # severe mitral regurgitation # dilated aortic root 4.9 cm # Atrial flutter, currently sinus rhythm: had sync cardioversion on 05/27/24 # Non-sustained Vtach C. Respiratory: #Acute hypoxic respiratory failure due to Pseudomonas aeruginosa pneumonia, pleural effusions, and pulmonary embolism: on [facility] vent, intubated on 05/26/24, reintubation on 06/12/24 due to ETT leak, extubated 06/26/24, tracheostomy tube placed 06/26/24, trach collar trials started on 07/02/2024: next day satisfactory, so will try full day trach collar tomorrow. #Septic shock due to Pseudomonas aeruginosa pneumonia #Pleural effusions s/p three chest tubes (two on the right; one on the left) #moderate pulmonary arterial hypertension #large right pulmonary artery embolus #right hydro pneumothorax with right chest tube in-situ. #Moderate left pleural effusion. 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 Gong/surgery team on board, repeat CT chest shows subcutaneous emphysema no surgical intervention. #Large right pleural effusion: s/p multiple thoracentesis, pt has currently 2 chest tubes & last CT 06/16/24 shows Moderate right pleural fluid collection with near complete collapse of the right lower lobe chest tube in place within the collection. #Right lower lobe atelectasis, mildly improved #Multiple mucus plugs status post multiple bronchoscopies #Pneumonia, community acquired, gram +/-, possible superseded fungal infection: Micafungin for infection #pneumomediastinum, hemodynamically stable #Increased left pneumothorax despite the presence of a left chest tube. D. Gastrointenstinal: # Transaminitis likely due to sepsis # Moderate colonic diverticulosis # Cholelithiasis, without cholecystitis. # nutrition: Glucerna # constipation: On Colace E. Geniotourinary: Uncomplicated presumably F. Infectious Disease: # complicated UTI: urine culture reveals Pseudomonas and Enterococcus, appropriately on antibiotics asymptomatic presumably # shock, likely cardiogenic/septic: Negative for hepatitis-B, hepatitis-C, HIV, # Sacral Wound, Unstageable: Status post wound debridement wound care to continue G. Hematology & Oncology: # anemia, normocytic, severe: s/p 1 unit of PRBC transfusion # coagulopathy likely due to sepsis, no active bleeding noted presumably. H. Nephrology: renal function satisfactory. # Hypernatremia, corrected # Hyperkalemia, corrected # hypokalemia , Corrected # RADHA likely due to vasomotor nephropathy, improved monitor BMP closely # metabolic alkalosis with respiratory alkalosis, improved # hypophosphatemia I. Endocrine: # prediabetic with HbA1c of 6.1 J. MSK: # ICU myopathy: Low muscle mass extremely weak K. Prophylaxis: PPI: Pantoprazole DVT: SCDs L. Lines & Drains (with insertion date): PICC line 06/17/24 Left subclavian CVC line 06/05/24, removed 06/17/24 Right femoral A-line 06/03/24, discontinued 06/24/2024 Olsen catheter 05/21/24 right Arterial line 06/26/23 N. Disposition: Remains in [facility], the patient has a fiancee was updated yesterday for healthy to questions. Advance discharge planning with wound vac with social work started. SW consulted input appreciate. O. Vent Settings: Via trach patient is on PEEP of 5, FiO2 of 40% AC VC The plan was discussed with the ICU attending Dr. Clayton. The patient care consists of total 66 minutes of critical care time excluding the procedures. Dictated by Jose Francisco Gamino MD with 3M MModal Fluency. Plan discussed with: Patient, Other My Orders My Orders Orders - JOSE FRANCISCO GAMINO Procedure Category Date Status Time * Deep Fat Fry Cook CONS 07/03/24 Transmitted Consult Dietary Evaluation Review Comments: 1. consider Renal Specific 70g protein restriction witn 2GNa, 3K, low Phos, if no diaylsis needed. 2. consider Renal Standard 2gn, 3K, low phosphate diet if Pt is on dialysis. 3. encourage and monitor po intake to meet 75% of his needs. Expected Outcomes/Goals: avoid uremic symptoms, gradual healed wounds. Date of Service: Jul 03, 2024 Billing Provider: TIFFANY CLAYTON MD Common Visit Codes: 88920-[id number] CARE 30-74 MIN JOSE FRANCISCO GAMINO Jul 03, 2024 23:39 TIFFANY CLAYTON MD Jul 04, 2024 13:00
[2024-07-04] VITALS (108 sets, daily range): BP systolic 94–167; BP diastolic 29–52; PULSE 57–86; RESP 8–32; TEMP 97.6–98.5; O2SAT 99–100
[2024-07-04 05:29] LABS: Basophils # (auto) 0.1 10 ^3/uL (0-0.2); Basophils % (auto) 1.8 % (0.0-2.0); Eosinophils # (auto) 0.4 10 ^3/uL (0-0.8); Eosinophils % (auto) 7.7 % (0.0-7.0); Hematocrit 22.2 % (41.0-53.0); Hemoglobin 7.4 g/dL (13.5-17.5); Lymphocytes # (auto) 1.2 10 ^3/uL (0.4-5.4); Lymphocytes % (auto) 23.8 % (10.0-50.0); Mean Corpuscular Hemoglobin 27.2 pg (28.0-32.0); Mean Corpuscular Hgb Conc. 33.1 g/dL (32.0-36.0); Mean Corpuscular Volume 82.1 fL (80.0-100.0); Monocytes # (auto) 0.3 10 ^3/uL (0-1.3); Monocytes % (auto) 6.7 % (0.0-12.0); Neutrophils # (auto) 2.9 10 ^3/uL (1.6-8.6); Nucleated Red Blood Cells % 0.2 %; Platelet Count (auto) 106 10^3/uL (140-450); Red Blood Cells 2.71 10^6/uL (4.5-5.90); Red Cell Distribution Width 19.1 % (11.8-14.3); White Blood Cell 4.9 10^3/uL (4.4-10.8)
--- NOTE | 2024-07-04 10:41 | DVHPN2 ---
Progress Note - Dictate Date Seen: Jul 04, 2024 Medical Necessity Reason Pt with a Central, PICC or Fol: Yes The following are medically ne: Central Line, Olsen Catheter Reason for olsen catheter: Strict I&O Subjective PT WITH SS COMPLEX INCRESEING SOB HARVEY LE EDEMA HFrEF CHRONIC AND ACUTE NOW WITH HEMOPTYSIS TACHYCARDIA CTA LUNG C/W PE ACUTE vital signs Vital Sign Date Time Temp Pulse Resp B/P (MAP) Pulse Ox O2 Delivery O2 Flow Rate FiO2 07/04/24 08:00 100 Trach Collar 10 35 Cool Aerosol 35 07/04/24 08:00 98.5 74 14 98.5 Total Intake and Output 07/03/24 07/03/24 07/04/24 15:00 23:00 07:00 Intake Total 714.764 ml 346.100 ml 580.700 ml Output Total 1900 ml 900 ml Balance 714.764 ml -1553.900 ml -319.300 ml medications Current Medications Medications Dose Ordered Sig/Amy Route Start Time Stop Time Status Last Admin Dose Admin Potassium Chloride 100 ml @ 50 mls/hr Q2H IV 05/27/24 17:15 05/28/24 01:14 UNV Diagnostic Test (Pha) 1 strip Q6HR 05/30/24 18:00 07/04/24 06:28 1 STRIP Insulin Human Regular FOLLOW SLIDING SCALE Q6HR SC 05/30/24 18:00 06/24/24 01:27 2 UNITS Dextrose 50 ml UD IV 05/30/24 12:15 Acetaminophen 650 mg Q6HP PRN PO 05/31/24 19:30 06/10/24 14:37 650 MG Midazolam HCl 50 ml @ 1 mls/hr Q24H IV 06/08/24 20:15 06/27/24 08:50 3 MLS/HR Norepinephrine Bitartrate 32 mg/ Sodium Chloride 250 ml @ 0.938 mls/ hr Q24H IV 06/11/24 15:30 06/30/24 13:53 0.938 MLS/HR Potassium Chloride 100 ml @ 50 mls/hr Q2H IV 06/13/24 12:45 06/13/24 16:44 UNV Magnesium Sulfate/ Dextrose 100 ml @ 100 mls/hr Q1HR IV 06/13/24 13:00 06/13/24 14:59 UNV Cefepime HCl 50 ml @ 12.5 mls/hr Q8HR IV 06/13/24 14:00 UNV Sodium Chloride 10 ml QSHIFT@10,22 IV 06/17/24 22:00 07/04/24 09:39 10 ML Pantoprazole Sodium 40 mg DAILY IV 06/18/24 10:00 07/04/24 09:38 40 MG Vasopressin 20 units/Sodium Chloride 100 ml @ 9 mls/hr Q11H7M IV 06/21/24 07:45 06/23/24 23:25 9 MLS/HR Linezolid 300 ml @ 150 mls/hr Q12H IV 06/24/24 12:00 07/04/24 00:00 150 MLS/HR Enteral Nutritional Formula 1,000 ml 50ML/HR GT 06/25/24 10:30 Amiodarone HCl 200 mg DAILY PO 06/26/24 13:30 07/04/24 09:38 200 MG Micafungin Sodium 100 mg/Sodium Chloride 100 ml @ 100 mls/hr DAILY IV 06/28/24 10:00 07/04/24 09:38 100 MLS/HR Albuterol 2.5 mg Q6HR NEB 06/29/24 12:40 07/04/24 05:41 2.5 MG Ipratropium [place] 0.5 mg Q6HR NEB 06/29/24 12:41 07/04/24 05:41 0.5 MG Acetylcysteine 200 mg Q6HR NEB 06/29/24 12:41 07/04/24 05:41 200 MG Ceftolozane/ Tazobactam 3 gm/ Dextrose 100 ml @ 33.333 mls/ hr Q8H IV 06/30/24 18:00 07/04/24 09:39 33.333 MLS/HR Dexmedetomidine HCl 400 mcg/ Dextrose 100 ml @ 3.9 mls/hr Q24H IV 07/03/24 03:45 07/04/24 02:00 1.95 MLS/HR Fentanyl Citrate 250 ml @ 2.5 mls/hr Q24H IV 07/03/24 06:00 07/03/24 06:00 2.5 MLS/HR objective PUL DIFF RHONCHI JVD [place] CV RR PMI DIFFUSE EXT 3+ EDEMA laboratory and microbiology Laboratory Tests 07/04/24 04:53 07/03/24 04:51 Test 07/03/24 04:51 Range/Units Serum Glucose 107 H 74-106 mg/dL Problem List SS COMPLEX INCRESEING SOB HARVEY LE EDEMA HFrEF CHRONIC AND ACUTE EF < 20% NOW WITH HEMOPTYSIS TACHYCARDIA CTA LUNG C/W PE 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 Large filling defect right pulmonary artery consistent with pulmonary embolus. No film findings of pulmonary artery hypertension. No pulmonary emboli noted on the left. 2. Findings are also suggestive of right heart strain. 3. Large right pleural effusion. HEPARIN DRIP\ LASIX DRIP WILL START ORAL ANTICOAGULATION IN 48 HOURS ABX LE ARTERIAL DOPPLER NO SIGNIFICANT DISEASE FOR LIMB RISK DC HEPARIN START ELIQUIS S/P CT HEAD CURRENTLY ON BiPAP IMPROVING RESP STATUS 7.69 TITRATE BIPAP THORACENTESIS ULTRASOUND GUIDED MRI OF ABD S/P THORACENTESIS 2200 CC DRAINED CXR BILATERAL INFILTRATE PROMINENT MEDIASTINUM CARDIOMEGALY HYPOKALEMIA BEING CORRECTED A FLUTTER S/P CARDIOVERSION SINUS RHYTHM TITRATE OFF LEVOPHED USE ALBUMIN FOR PRESSURE SPORT DC LASIX DRIP START D5 1/4 NS AT 125 CC/HR BMP/ BNP DAILY cont volume replacement contraction alkalosis leukocytosis improved monitor h/h HYPERNATREMIA IMPROVING DIAMOX X 1 DOSE HYPERNATREMIA CORRECTED DC IV FLUID CONT TPN INCREASE VENT SETTING TO AC 22 EPISODE OF [place] CORRECT ACIDOSIS MAG SO4 2 G TITRATE OFF LEVOPHED DIAMOX TREAT METABOLIC ALKALOSIS RESP ACIDOSIS START TITRATING OFF SEDATION IMPROVED RESP PARAMETERS LIVER ENZYMES STILL ELEVATED wean off sedation CORRECT HYPERNATREMIA CHECK BNP AICD IMPLANTATION PT DEVELOPED PNEUMOTHORAX DELAYING EXTUBATION PNEUMOTHORAX IMPROVED LEUKOCYTOSIS AGAIN ELECTROLYTES BETTER NOW CXR CONSISTENT WITH CHF CORRECT K AND Mg CHANGE ABX VANCO AND AZTREONAM EPOGEN IRON DC ELIQUIS START LOVENOX WBC CONTINUES TO INCREASE NEEDS SURGICAL DEBRIDEMENT OF DECUB CXR WORSENING EFFUSION AND FLUID OVERLOAD START LASIX DRIP CXR CONSISTENT WITH MULTIFOCAL CONSOLIDATION EXCELLENT DIURESIS WITH LASIX DRIP MONITOR FLUID STATUS NEEDS DEBRIDEMENT OF DECUB WITH PERSISTENT LEUKOCYTOSIS CONSIDER BRONCHOSCOPY TO CLEAR CONSOLIDATION/ MUCUS CXR WORSENING LEFT SIDED EFFUSION/ INFILTRATE LEUKOCYTOSIS WORSENING DESPITE WOUND DEBRIDEMENT RECOMMEND BRONCHOSCOPY S/P DEBRIDEMENT OF STAGE IV DECUB WOUND POSITIVE FOR PSEUDOMONAS/ ENTEROCOCCUS URINE YEAST LEUKOCYTOSIS TRENDING DOWN CHECK CXR CHECK BNP CORRECT K PROGRESSIVE ANEMIA NEEDS ANTICOAGULATION FOR PE CONSIDER BRONCHOSCOPY WORSENING WBC IMPROVING WBC SEVERE ANEMIA START IRON WITH EPOGEN METABOLIC ALKALOSIS AGAIN DIAMOX CXR BETTER AERATION ON THE LEFT SIDED ONE DOSE OF IRON GIVEN ONE DOSE OF EPOGEN LEUKOCYTOSIS IMPROVING CHECK UA DIAMOX FOR WORSENING METABOLIC ALKALOSIS DECREASE REP RATE FOR RESP ALKALOSIS IRON STUDY FROM 06/21/24 LOW SERUM IRON LOW TIBC FERRITIN HIGH SECONDARY TO BEING ACUTE PHASE REACTANT S/P TRACHEOSTOMY NOW PT REQUIRES 2 UNITS OF PRBC CHECK UA CBC IN AM BNP IN AM ABG PT AWAKE STILL WITH PNEUMOTHORAX ABG BETTER DC PEEP TRANSFUSE PRBC EPOGEN AND IRON REVIEWED LAB: WBC, MCV, MCHC ARE WITHIN NORMAL LIMITS Dietary Evaluation Review Comments: 1. consider Renal Specific 70g protein restriction witn 2GNa, 3K, low Phos, if no diaylsis needed. 2. consider Renal Standard 2gn, 3K, low phosphate diet if Pt is on dialysis. 3. encourage and monitor po intake to meet 75% of his needs. Expected Outcomes/Goals: avoid uremic symptoms, gradual healed wounds. Plan discussed with: Patient ISSAC SHAH MD Jul 04, 2024 10:41
--- NOTE | 2024-07-04 13:14 | DVH ---
CHEST RADIOGRAPH Indication: follow up of left trapped lungs and right b/l Technique: Frontal view of the chest. Comparison: XY CHEST PORTABLE on DOS: 07/03/24, XY CHEST PORTABLE on DOS: 07/02/24, XY CHEST PORTABLE o n DOS: 07/01/24, XY CHEST XRAY 1 VIEW on DOS: 06/30/24, XY CHEST PORTABLE on DOS: 06/29/24, XY CHEST SANJEEV BLE on DOS: 07/03/24 FINDINGS: LUNGS AND PLEURAL SPACES: Stable chest tubse. Persistent left pneumothorax, unchanged. Bibasilar atelectasis.. HEART: Cardiomegaly with mild congestion. MEDIASTINUM: Unremarkable. Normal mediastinal contour. BONES/JOINTS: Unremarkable. No acute fracture. SOFT TISSUES: Soft tissue emphysema of the left chest wall. TUBES, LINES AND DEVICES: Tracheostomy tube in satisfactory position. OTHER FINDINGS: . None. . IMPRESSION: 1. Stable chest tubse. Persistent left pneumothorax, unchanged. 2. Cardiomegaly with mild congestion.
--- NOTE | 2024-07-04 14:26 | DVHPN2 ---
Progress Note Date Seen: Jul 04, 2024 Has the PT tested + for MRSA If YES, has PT been informed?: No Medical Necessity Reason Pt with a Central, PICC or Fol: No The following are medically ne: Central Line, Olsen Catheter Reason for olsen catheter: Strict I&O Objective vital signs Vital Sign Date Time Temp Pulse Resp B/P (MAP) Pulse Ox O2 Delivery O2 Flow Rate FiO2 07/04/24 14:11 97.7 69 21 131/37 97.7 07/04/24 13:57 100 Trach Collar 10 35 Cool Aerosol 35 Total Intake and Output 07/03/24 07/03/24 07/04/24 15:00 23:00 07:00 Intake Total 714.764 ml 346.100 ml 587.650 ml Output Total 1900 ml 900 ml Balance 714.764 ml -1553.900 ml -312.350 ml medications Current Medications Medications Dose Ordered Sig/Amy Route Start Time Stop Time Status Last Admin Dose Admin Potassium Chloride 100 ml @ 50 mls/hr Q2H IV 05/27/24 17:15 05/28/24 01:14 UNV Diagnostic Test (Pha) 1 strip Q6HR 05/30/24 18:00 07/04/24 12:25 1 STRIP Insulin Human Regular FOLLOW SLIDING SCALE Q6HR SC 05/30/24 18:00 06/24/24 01:27 2 UNITS Dextrose 50 ml UD IV 05/30/24 12:15 Acetaminophen 650 mg Q6HP PRN PO 05/31/24 19:30 06/10/24 14:37 650 MG Midazolam HCl 50 ml @ 1 mls/hr Q24H IV 06/08/24 20:15 06/27/24 08:50 3 MLS/HR Potassium Chloride 100 ml @ 50 mls/hr Q2H IV 06/13/24 12:45 06/13/24 16:44 UNV Magnesium Sulfate/ Dextrose 100 ml @ 100 mls/hr Q1HR IV 06/13/24 13:00 06/13/24 14:59 UNV Cefepime HCl 50 ml @ 12.5 mls/hr Q8HR IV 06/13/24 14:00 UNV Sodium Chloride 10 ml QSHIFT@10,22 IV 06/17/24 22:00 07/04/24 09:39 10 ML Pantoprazole Sodium 40 mg DAILY IV 06/18/24 10:00 07/04/24 09:38 40 MG Vasopressin 20 units/Sodium Chloride 100 ml @ 9 mls/hr Q11H7M IV 06/21/24 07:45 06/23/24 23:25 9 MLS/HR Enteral Nutritional Formula 1,000 ml 50ML/HR GT 06/25/24 10:30 Amiodarone HCl 200 mg DAILY PO 06/26/24 13:30 07/04/24 09:38 200 MG Micafungin Sodium 100 mg/Sodium Chloride 100 ml @ 100 mls/hr DAILY IV 06/28/24 10:00 07/04/24 09:38 100 MLS/HR Albuterol 2.5 mg Q6HR NEB 06/29/24 12:40 07/04/24 12:16 2.5 MG Ipratropium [place] 0.5 mg Q6HR NEB 06/29/24 12:41 07/04/24 12:16 0.5 MG Acetylcysteine 200 mg Q6HR NEB 06/29/24 12:41 07/04/24 12:16 200 MG Ceftolozane/ Tazobactam 3 gm/ Dextrose 100 ml @ 33.333 mls/ hr Q8H IV 06/30/24 18:00 07/04/24 09:39 33.333 MLS/HR Dexmedetomidine HCl 400 mcg/ Dextrose 100 ml @ 3.9 mls/hr Q24H IV 07/03/24 03:45 07/04/24 02:00 1.95 MLS/HR Fentanyl Citrate 250 ml @ 2.5 mls/hr Q24H IV 07/03/24 06:00 07/03/24 06:00 2.5 MLS/HR Morphine Sulfate 2 mg Q4HPRN PRN IV 07/04/24 13:00 Examination: GENERAL:Abnormal (tracheostomy , sedated), NECK:Normal, NECK:Abnormal laboratory and microbiology Laboratory Tests 07/04/24 04:53 07/03/24 04:51 Test 07/03/24 04:51 Range/Units Serum Glucose 107 H 74-106 mg/dL Problem List/Assessment/Plan Problem List/Assessment/Plan 07/04/24 wounds clean dry and intact, vital signs stable, left chest tube no air leak noted Plan discussed with: Other (Dr. Tilley ) Dietary Evaluation Review Comments: 1. consider Renal Specific 70g protein restriction witn 2GNa, 3K, low Phos, if no diaylsis needed. 2. consider Renal Standard 2gn, 3K, low phosphate diet if Pt is on dialysis. 3. encourage and monitor po intake to meet 75% of his needs. Expected Outcomes/Goals: avoid uremic symptoms, gradual healed wounds. NITA CEDENO NP Jul 04, 2024 14:26
[2024-07-04] MEDS: FUROSEMIDE 40 MG/4 ML VIAL IV ONE (17:18)
[2024-07-04] MEDS ORDERED: hydrALAZINE HCL 20 MG/ML VL IV PRN (18:30)
--- NOTE | 2024-07-04 21:17 | DVHPNRES ---
Progress Note Date Seen: Jul 04, 2024 Resident Creating Document: JOSE FRANCISCO GAMINO RESIDENT Has the PT tested + for MRSA If YES, has PT been informed?: No Medical Necessity Reason Pt with a Central, PICC or Fol: No The following are medically ne: Central Line, Olsen Catheter Reason for olsen catheter: Strict I&O Objective vital signs Vital Sign Date Time Temp Pulse Resp B/P (MAP) Pulse Ox O2 Delivery O2 Flow Rate FiO2 07/04/24 21:00 78 29 140/41 (74) 100 07/04/24 20:00 Trach Collar 8 40 40 07/04/24 20:00 98.2 98.2 Total Intake and Output 07/03/24 07/03/24 07/04/24 15:00 23:00 07:00 Intake Total 714.764 ml 346.100 ml 587.650 ml Output Total 1900 ml 900 ml Balance 714.764 ml -1553.900 ml -312.350 ml medications Current Medications Medications Dose Ordered Sig/Amy Route Start Time Stop Time Status Last Admin Dose Admin Potassium Chloride 100 ml @ 50 mls/hr Q2H IV 05/27/24 17:15 05/28/24 01:14 UNV Diagnostic Test (Pha) 1 strip Q6HR 05/30/24 18:00 07/04/24 18:00 1 STRIP Insulin Human Regular FOLLOW SLIDING SCALE Q6HR SC 05/30/24 18:00 06/24/24 01:27 2 UNITS Dextrose 50 ml UD IV 05/30/24 12:15 Acetaminophen 650 mg Q6HP PRN PO 05/31/24 19:30 06/10/24 14:37 650 MG Midazolam HCl 50 ml @ 1 mls/hr Q24H IV 06/08/24 20:15 06/27/24 08:50 3 MLS/HR Potassium Chloride 100 ml @ 50 mls/hr Q2H IV 06/13/24 12:45 06/13/24 16:44 UNV Magnesium Sulfate/ Dextrose 100 ml @ 100 mls/hr Q1HR IV 06/13/24 13:00 06/13/24 14:59 UNV Cefepime HCl 50 ml @ 12.5 mls/hr Q8HR IV 06/13/24 14:00 UNV Sodium Chloride 10 ml QSHIFT@ IV 06/17/24 22:00 07/04/24 09:39 10 ML Pantoprazole Sodium 40 mg DAILY IV 06/18/24 10:00 07/04/24 09:38 40 MG Vasopressin 20 units/Sodium Chloride 100 ml @ 9 mls/hr Q11H7M IV 06/21/24 07:45 06/23/24 23:25 9 MLS/HR Enteral Nutritional Formula 1,000 ml 50ML/HR GT 06/25/24 10:30 Amiodarone HCl 200 mg DAILY PO 06/26/24 13:30 07/04/24 09:38 200 MG Micafungin Sodium 100 mg/Sodium Chloride 100 ml @ 100 mls/hr DAILY IV 06/28/24 10:00 07/04/24 09:38 100 MLS/HR Albuterol 2.5 mg Q6HR NEB 06/29/24 12:40 07/04/24 18:25 2.5 MG Ipratropium [place] 0.5 mg Q6HR NEB 06/29/24 12:41 07/04/24 18:25 0.5 MG Acetylcysteine 200 mg Q6HR NEB 06/29/24 12:41 07/04/24 18:26 200 MG Ceftolozane/ Tazobactam 3 gm/ Dextrose 100 ml @ 33.333 mls/ hr Q8H IV 06/30/24 18:00 07/04/24 18:33 33.333 MLS/HR Dexmedetomidine HCl 400 mcg/ Dextrose 100 ml @ 3.9 mls/hr Q24H IV 07/03/24 03:45 07/04/24 02:00 1.95 MLS/HR Fentanyl Citrate 250 ml @ 2.5 mls/hr Q24H IV 07/03/24 06:00 07/03/24 06:00 2.5 MLS/HR Morphine Sulfate 2 mg Q4HPRN PRN IV 07/04/24 13:00 Hydralazine HCl 10 mg Q6HP PRN IV 07/04/24 18:30 Examination General Appearance: Overall comfortable HEENT: Atraumatic Neck: Other (tracheostomy) Lungs: Other (MV sounds) Chest/Breasts: Other (Two right-sided chest tubes; and one left-sided chest tube) Cardiovascular: Regular rate, Normal S1, Normal S2 Abdomen: Normal bowel sounds, Soft Genitourinary: Other (Olsen's) Neuro: Other (Sedated) Psych/Mental Status: Other (Sedated) laboratory and microbiology Laboratory Tests 07/04/24 04:53 07/03/24 04:51 Test 07/03/24 04:51 Range/Units Serum Glucose 107 H 74-106 mg/dL Microbiology Date/Time Source Procedure Growth Status 06/29/24 18:08 Bronchial Washings Gram Stain - Final Complete 06/29/24 18:08 Respiratory Culture - Final Pseudomonas aeruginosa Complete 06/28/24 10:30 Chest Gram Stain - Final Complete 06/28/24 10:30 Chest Anaerobic Culture - Final Complete 06/28/24 10:30 Aerobic Culture - Final Pseudomonas aeruginosa Complete 06/25/24 14:45 Pleural Fluid Gram Stain - Final Complete 06/25/24 14:45 Body Fluid Culture - Final Pseudomonas aeruginosa Complete 06/25/24 06:40 Urine - Olsen [place] Urine Culture - Final Yeast, not Radha albicans Complete 06/24/24 20:21 Blood Blood Culture - Final NO GROWTH AFTER 5 DAYS OF INCUBATION. Complete Labs and/or images reviewed: Labs reviewed by me, Image(s) reviewed by me Problem List/Assessment/Plan Problem List/Assessment/Plan Problem List/Assessment/Plan ICU Course: A 63-year-old male with a history of heart failure with reduced ejection fraction 20%, severe mitral regurgitation, dilated aortic root of 4.9 cm, moderate pulmonary arterial hypertension, pulmonary embolism, congestive heart failure (CHF) and pulmonary embolism was intubated in the ICU. He developed necrotic pressure ulcers and multiorgan failure, large right pleural effusion, right heart strain, right pulmonary artery embolus, leading to a tracheostomy. A chest tube was placed, and a chest CT was performed. Due to low blood pressure, he required Levophed. Initially was on BiPAP, eventually needed intubation, status post trach, now on minimal vent settings. Hospitalization day: 45 A. Neurolgy: #Acute metabolic/toxic encephalopathy in the setting of septic shock, improved. 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 Cardiology: # Acute on chronic systolic CHF # heart failure with reduced ejection fraction: Ejection fraction of 20%. # mild AV calcification # severe mitral regurgitation # dilated aortic root 4.9 cm # Atrial flutter, currently sinus rhythm: had sync cardioversion on 05/27/24 # Non-sustained Vtach C. Respiratory: #Acute hypoxic respiratory failure due to Pseudomonas aeruginosa pneumonia, pleural effusions, and pulmonary embolism: on [facility] vent, intubated on 05/26/24, reintubation on 06/12/24 due to ETT leak, extubated 06/26/24, tracheostomy tube placed 06/26/24, trach collar trials started on 07/02/2024: next day satisfactory, so will try full day trach collar tomorrow. #Septic shock due to Pseudomonas aeruginosa pneumonia #Pleural effusions s/p three chest tubes (two on the right; one on the left) #moderate pulmonary arterial hypertension #large right pulmonary artery embolus #right hydro pneumothorax with right chest tube in-situ. #Moderate left pleural effusion. 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 Gong/surgery team on board, repeat CT chest shows subcutaneous emphysema no surgical intervention. #Large right pleural effusion: s/p multiple thoracentesis, pt has currently 2 chest tubes & last CT 06/16/24 shows Moderate right pleural fluid collection with near complete collapse of the right lower lobe chest tube in place within the collection. #Right lower lobe atelectasis, mildly improved #Multiple mucus plugs status post multiple bronchoscopies #Pneumonia, community acquired, gram +/-, possible superseded fungal infection: Micafungin for infection #pneumomediastinum, hemodynamically stable #Increased left pneumothorax despite the presence of a left chest tube. D. Gastrointenstinal: # Transaminitis likely due to sepsis # Moderate colonic diverticulosis # Cholelithiasis, without cholecystitis. # nutrition: Glucerna # constipation: On Colace E. Geniotourinary: Uncomplicated presumably F. Infectious Disease: # complicated UTI: urine culture reveals Pseudomonas and Enterococcus, appropriately on antibiotics asymptomatic presumably # shock, likely cardiogenic/septic: Negative for hepatitis-B, hepatitis-C, HIV, # Sacral Wound, Unstageable: Status post wound debridement wound care to continue G. Hematology & Oncology: # anemia, normocytic, severe: s/p 1 unit of PRBC transfusion # coagulopathy likely due to sepsis, no active bleeding noted presumably. H. Nephrology: renal function satisfactory. # Hypernatremia, corrected # Hyperkalemia, corrected # hypokalemia , Corrected # RADHA likely due to vasomotor nephropathy, improved monitor BMP closely # metabolic alkalosis with respiratory alkalosis, improved # hypophosphatemia I. Endocrine: # prediabetic with HbA1c of 6.1 J. MSK: # ICU myopathy: Low muscle mass extremely weak K. Prophylaxis: PPI: Pantoprazole DVT: SCDs L. Lines & Drains (with insertion date): PICC line 06/17/24 Left subclavian CVC line 06/05/24, removed 06/17/24 Right femoral A-line 06/03/24, discontinued 06/24/2024 Olsen catheter 05/21/24 right Arterial line 06/26/23 N. Disposition: Remains in [facility], the patient has a fiancee was updated yesterday for healthy to questions. Advance discharge planning with wound vac with social work started. SW consulted input appreciate. O. Vent Settings: Via trach patient is on PEEP of 5, FiO2 of 40% AC VC The plan was discussed with the ICU attending Dr. Clayton. The patient care consists of total 66 minutes of critical care time excluding the procedures. Dictated by Jose Francisco Gamino MD with 3M MModal Fluency. Plan discussed with: Patient, Other (primary team. ) My Orders My Orders Orders - JOSE FRANCISCO GAMINO Procedure Category Date Status Time * Swallow Request ST 07/04/24 Transmitted 08:22 Respiratory Misc. RT 07/04/24 Transmitted Order 10:10 Chest Portable XY 07/04/24 Resulted 10:53 Hydralazine Injection PHA 07/04/24 In Process (Apresoline Inject 18:30 Dietary Evaluation Review Comments: 1. consider Renal Specific 70g protein restriction witn 2GNa, 3K, low Phos, if no diaylsis needed. 2. consider Renal Standard 2gn, 3K, low phosphate diet if Pt is on dialysis. 3. encourage and monitor po intake to meet 75% of his needs. Expected Outcomes/Goals: avoid uremic symptoms, gradual healed wounds. Date of Service: Jul 04, 2024 Billing Provider: TIFFANY CLAYTON MD Common Visit Codes: [id number] CARE 30-74 MIN JOSE FRANCISCO GAMINO Jul 04, 2024 21:17 TIFFANY CLAYTON MD Jul 07, 2024 18:00
[2024-07-05] VITALS (67 sets, daily range): BP systolic 81–129; BP diastolic 29–54; PULSE 62–95; RESP 11–33; TEMP 97.6–100.6; O2SAT 95–100
[2024-07-05] MEDS: Glucerna 1.2 Cal 1Liter BOTTLE GT SCH (04:57)
--- NOTE | 2024-07-05 13:50 | DVHPN2 ---
Progress Note - Dictate Date Seen: Jul 05, 2024 Has the PT tested + for MRSA If YES, has PT been informed?: No Medical Necessity Reason Pt with a Central, PICC or Fol: No The following are medically ne: Central Line, Olsen Catheter Reason for olsen catheter: Strict I&O Subjective PT WITH SS COMPLEX INCRESEING SOB HARVEY LE EDEMA HFrEF CHRONIC AND ACUTE NOW WITH HEMOPTYSIS TACHYCARDIA CTA LUNG C/W PE ACUTE vital signs Vital Sign Date Time Temp Pulse Resp B/P (MAP) Pulse Ox O2 Delivery O2 Flow Rate FiO2 07/05/24 13:40 100 Trach Collar 10 35 Cool Aerosol 35 07/05/24 12:00 97.6 71 16 124/49 (74) 97.6 Total Intake and Output 07/04/24 07/04/24 07/05/24 15:00 23:00 07:00 Intake Total 190.263 ml 653.400 ml 392.420 ml Output Total 425 ml 1855 ml Balance 190.263 ml 228.400 ml -1462.580 ml medications Current Medications Medications Dose Ordered Sig/Amy Route Start Time Stop Time Status Last Admin Dose Admin Potassium Chloride 100 ml @ 50 mls/hr Q2H IV 05/27/24 17:15 05/28/24 01:14 UNV Diagnostic Test (Pha) 1 strip Q6HR 05/30/24 18:00 07/05/24 12:07 1 STRIP Insulin Human Regular FOLLOW SLIDING SCALE Q6HR SC 05/30/24 18:00 06/24/24 01:27 2 UNITS Dextrose 50 ml UD IV 05/30/24 12:15 Acetaminophen 650 mg Q6HP PRN PO 05/31/24 19:30 07/05/24 05:13 650 MG Midazolam HCl 50 ml @ 1 mls/hr Q24H IV 06/08/24 20:15 06/27/24 08:50 3 MLS/HR Potassium Chloride 100 ml @ 50 mls/hr Q2H IV 06/13/24 12:45 06/13/24 16:44 UNV Magnesium Sulfate/ Dextrose 100 ml @ 100 mls/hr Q1HR IV 06/13/24 13:00 06/13/24 14:59 UNV Cefepime HCl 50 ml @ 12.5 mls/hr Q8HR IV 06/13/24 14:00 UNV Sodium Chloride 10 ml QSHIFT@10,22 IV 06/17/24 22:00 07/05/24 10:11 10 ML Pantoprazole Sodium 40 mg DAILY IV 06/18/24 10:00 07/05/24 10:11 40 MG Vasopressin 20 units/Sodium Chloride 100 ml @ 9 mls/hr Q11H7M IV 06/21/24 07:45 06/23/24 23:25 9 MLS/HR Enteral Nutritional Formula 1,000 ml 50ML/HR GT 06/25/24 10:30 07/05/24 04:57 1,000 ML Amiodarone HCl 200 mg DAILY PO 06/26/24 13:30 07/05/24 10:11 200 MG Micafungin Sodium 100 mg/Sodium Chloride 100 ml @ 100 mls/hr DAILY IV 06/28/24 10:00 07/05/24 10:11 100 MLS/HR Albuterol 2.5 mg Q6HR NEB 06/29/24 12:40 07/05/24 11:20 2.5 MG Ipratropium [place] 0.5 mg Q6HR NEB 06/29/24 12:41 07/05/24 11:20 0.5 MG Acetylcysteine 200 mg Q6HR NEB 06/29/24 12:41 07/05/24 11:20 200 MG Ceftolozane/ Tazobactam 3 gm/ Dextrose 100 ml @ 33.333 mls/ hr Q8H IV 06/30/24 18:00 07/05/24 10:54 33.333 MLS/HR Dexmedetomidine HCl 400 mcg/ Dextrose 100 ml @ 3.9 mls/hr Q24H IV 07/03/24 03:45 07/05/24 07:00 3.9 MLS/HR Fentanyl Citrate 250 ml @ 2.5 mls/hr Q24H IV 07/03/24 06:00 07/03/24 06:00 2.5 MLS/HR Morphine Sulfate 2 mg Q4HPRN PRN IV 07/04/24 13:00 Hydralazine HCl 10 mg Q6HP PRN IV 07/04/24 18:30 objective PUL DIFF RHONCHI JVD ANGLE OF THE JAW CV RR PMI DIFFUSE EXT 3+ EDEMA laboratory and microbiology Laboratory Tests 07/04/24 04:53 07/03/24 04:51 Test 07/03/24 04:51 Range/Units Serum Glucose 107 H 74-106 mg/dL Problem List SS COMPLEX INCRESEING SOB HARVEY LE EDEMA HFrEF CHRONIC AND ACUTE EF < 20% NOW WITH HEMOPTYSIS TACHYCARDIA CTA LUNG C/W PE 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 Large filling defect right pulmonary artery consistent with pulmonary embolus. No film findings of pulmonary artery hypertension. No pulmonary emboli noted on the left. 2. Findings are also suggestive of right heart strain. 3. Large right pleural effusion. HEPARIN DRIP\ LASIX DRIP WILL START ORAL ANTICOAGULATION IN 48 HOURS ABX LE ARTERIAL DOPPLER NO SIGNIFICANT DISEASE FOR LIMB RISK DC HEPARIN START ELIQUIS S/P CT HEAD CURRENTLY ON BiPAP IMPROVING RESP STATUS 7.32/59/69 TITRATE BIPAP THORACENTESIS ULTRASOUND GUIDED MRI OF ABD S/P THORACENTESIS 2200 CC DRAINED CXR BILATERAL INFILTRATE PROMINENT MEDIASTINUM CARDIOMEGALY HYPOKALEMIA BEING CORRECTED A FLUTTER S/P CARDIOVERSION SINUS RHYTHM TITRATE OFF LEVOPHED USE ALBUMIN FOR PRESSURE SPORT DC LASIX DRIP START D5 1/4 NS AT 125 CC/HR BMP/ BNP DAILY cont volume replacement contraction alkalosis leukocytosis improved monitor h/h HYPERNATREMIA IMPROVING DIAMOX X 1 DOSE tracheostomy awake alert increase nutritional supplementy testosterone HYPERNATREMIA CORRECTED DC IV FLUID CONT TPN INCREASE VENT SETTING TO AC 22 EPISODE OF [place] CORRECT ACIDOSIS MAG SO4 2 G TITRATE OFF LEVOPHED DIAMOX TREAT METABOLIC ALKALOSIS RESP ACIDOSIS START TITRATING OFF SEDATION IMPROVED RESP PARAMETERS LIVER ENZYMES STILL ELEVATED wean off sedation CORRECT HYPERNATREMIA CHECK BNP AICD IMPLANTATION PT DEVELOPED PNEUMOTHORAX DELAYING EXTUBATION PNEUMOTHORAX IMPROVED LEUKOCYTOSIS AGAIN ELECTROLYTES BETTER NOW CXR CONSISTENT WITH CHF CORRECT K AND Mg CHANGE ABX VANCO AND AZTREONAM EPOGEN IRON DC ELIQUIS START LOVENOX WBC CONTINUES TO INCREASE NEEDS SURGICAL DEBRIDEMENT OF DECUB CXR WORSENING EFFUSION AND FLUID OVERLOAD START LASIX DRIP CXR CONSISTENT WITH MULTIFOCAL CONSOLIDATION EXCELLENT DIURESIS WITH LASIX DRIP MONITOR FLUID STATUS NEEDS DEBRIDEMENT OF DECUB WITH PERSISTENT LEUKOCYTOSIS CONSIDER BRONCHOSCOPY TO CLEAR CONSOLIDATION/ MUCUS CXR WORSENING LEFT SIDED EFFUSION/ INFILTRATE LEUKOCYTOSIS WORSENING DESPITE WOUND DEBRIDEMENT RECOMMEND BRONCHOSCOPY S/P DEBRIDEMENT OF STAGE IV DECUB WOUND POSITIVE FOR PSEUDOMONAS/ ENTEROCOCCUS URINE YEAST LEUKOCYTOSIS TRENDING DOWN CHECK CXR CHECK BNP CORRECT K PROGRESSIVE ANEMIA NEEDS ANTICOAGULATION FOR PE CONSIDER BRONCHOSCOPY WORSENING WBC IMPROVING WBC SEVERE ANEMIA START IRON WITH EPOGEN METABOLIC ALKALOSIS AGAIN DIAMOX CXR BETTER AERATION ON THE LEFT SIDED ONE DOSE OF IRON GIVEN ONE DOSE OF EPOGEN LEUKOCYTOSIS IMPROVING CHECK UA DIAMOX FOR WORSENING METABOLIC ALKALOSIS DECREASE REP RATE FOR RESP ALKALOSIS IRON STUDY FROM 06/21/24 LOW SERUM IRON LOW TIBC FERRITIN HIGH SECONDARY TO BEING ACUTE PHASE REACTANT S/P TRACHEOSTOMY NOW PT REQUIRES 2 UNITS OF PRBC CHECK UA CBC IN AM BNP IN AM ABG PT AWAKE STILL WITH PNEUMOTHORAX ABG BETTER DC PEEP TRANSFUSE PRBC EPOGEN AND IRON Dietary Evaluation Review Comments: 1. consider Renal Specific 70g protein restriction witn 2GNa, 3K, low Phos, if no diaylsis needed. 2. consider Renal Standard 2gn, 3K, low phosphate diet if Pt is on dialysis. 3. encourage and monitor po intake to meet 75% of his needs. Expected Outcomes/Goals: avoid uremic symptoms, gradual healed wounds. Plan discussed with: Patient ISSAC SHAH MD Jul 05, 2024 13:50
--- NOTE | 2024-07-05 14:20 | DVH ---
CHEST RADIOGRAPH Indication: right side ct placement, pneumothorax Technique: Single frontal view of the chest was obtained COMPARISON: XY CHEST PORTABLE on DOS: 07/04/24, XY CHEST PORTABLE on DOS: 07/03/24, XY CHEST PORTABLE o n DOS: 07/02/24, XY CHEST PORTABLE on DOS: 07/01/24, XY CHEST XRAY 1 VIEW on DOS: 06/30/24 FINDINGS: Lines and Tubes: Tracheostomy and enteric catheter in satisfactory position. Bilateral chest tubes in -situ. Lungs: Patchy bilateral airspace disease. Pleura: No effusion. Stable small bilateral pneumothorax, unchanged. Cardiomediastinal contours: Subcutaneous emphysema along the left chest wall. Bones: Unremarkable IMPRESSION: Lines and tubes in satisfactory position. No significant interval change.
[2024-07-05] MEDS: TESTOSTERONE CYPIONATE 200 MG/ML 1ML VIAL IM ONE (15:50)
--- NOTE | 2024-07-05 22:02 | DVHPNRES ---
Progress Note Date Seen: Jul 05, 2024 Resident Creating Document: JOSE FRANCISCO GAMINO RESIDENT Has the PT tested + for MRSA If YES, has PT been informed?: No Medical Necessity Reason Pt with a Central, PICC or Fol: No The following are medically ne: Central Line, Olsen Catheter Reason for olsen catheter: Strict I&O Objective vital signs Vital Sign Date Time Temp Pulse Resp B/P (MAP) Pulse Ox O2 Delivery O2 Flow Rate FiO2 07/05/24 21:00 89 28 119/47 (71) 100 07/05/24 18:00 Trach Collar 8 40 40 07/05/24 16:00 97.9 97.9 Total Intake and Output 07/04/24 07/04/24 07/05/24 15:00 23:00 07:00 Intake Total 190.263 ml 653.400 ml 392.420 ml Output Total 425 ml 1855 ml Balance 190.263 ml 228.400 ml -1462.580 ml medications Current Medications Medications Dose Ordered Sig/Amy Route Start Time Stop Time Status Last Admin Dose Admin Potassium Chloride 100 ml @ 50 mls/hr Q2H IV 05/27/24 17:15 05/28/24 01:14 UNV Diagnostic Test (Pha) 1 strip Q6HR 05/30/24 18:00 07/05/24 18:33 1 STRIP Insulin Human Regular FOLLOW SLIDING SCALE Q6HR SC 05/30/24 18:00 06/24/24 01:27 2 UNITS Dextrose 50 ml UD IV 05/30/24 12:15 Acetaminophen 650 mg Q6HP PRN PO 05/31/24 19:30 07/05/24 05:13 650 MG Midazolam HCl 50 ml @ 1 mls/hr Q24H IV 06/08/24 20:15 06/27/24 08:50 3 MLS/HR Potassium Chloride 100 ml @ 50 mls/hr Q2H IV 06/13/24 12:45 06/13/24 16:44 UNV Magnesium Sulfate/ Dextrose 100 ml @ 100 mls/hr Q1HR IV 06/13/24 13:00 06/13/24 14:59 UNV Cefepime HCl 50 ml @ 12.5 mls/hr Q8HR IV 06/13/24 14:00 UNV Sodium Chloride 10 ml QSHIFT@,22 IV 06/17/24 22:00 07/05/24 21:19 10 ML Pantoprazole Sodium 40 mg DAILY IV 06/18/24 10:00 07/05/24 10:11 40 MG Vasopressin 20 units/Sodium Chloride 100 ml @ 9 mls/hr Q11H7M IV 06/21/24 07:45 06/23/24 23:25 9 MLS/HR Enteral Nutritional Formula 1,000 ml 50ML/HR GT 06/25/24 10:30 07/05/24 04:57 1,000 ML Amiodarone HCl 200 mg DAILY PO 06/26/24 13:30 07/05/24 10:11 200 MG Micafungin Sodium 100 mg/Sodium Chloride 100 ml @ 100 mls/hr DAILY IV 06/28/24 10:00 07/05/24 10:11 100 MLS/HR Albuterol 2.5 mg Q6HR NEB 06/29/24 12:40 07/05/24 20:47 2.5 MG Ipratropium [place] 0.5 mg Q6HR NEB 06/29/24 12:41 07/05/24 20:47 0.5 MG Acetylcysteine 200 mg Q6HR NEB 06/29/24 12:41 07/05/24 20:47 200 MG Ceftolozane/ Tazobactam 3 gm/ Dextrose 100 ml @ 33.333 mls/ hr Q8H IV 06/30/24 18:00 07/05/24 17:59 33.333 MLS/HR Fentanyl Citrate 250 ml @ 2.5 mls/hr Q24H IV 07/03/24 06:00 07/03/24 06:00 2.5 MLS/HR Morphine Sulfate 2 mg Q4HPRN PRN IV 07/04/24 13:00 Hydralazine HCl 10 mg Q6HP PRN IV 07/04/24 18:30 Alprazolam 0.25 mg TIDPRN PRN PO 07/05/24 14:00 Examination General Appearance: Overall comfortable HEENT: Atraumatic Neck: Other (tracheostomy) Lungs: Other (MV sounds) Chest/Breasts: Other (Two right-sided chest tubes; and one left-sided chest tube) Right lower chest tube out, cxr shows no available tube remnant inside the chest cavity and no subcutaneous emphysema Cardiovascular: Regular rate, Normal S1, Normal S2 Abdomen: Normal bowel sounds, Soft Genitourinary: Other (Olsen's) Neuro: Other (Sedated) Psych/Mental Status: Other (Sedated) laboratory and microbiology Laboratory Tests 07/04/24 04:53 07/03/24 04:51 Test 07/03/24 04:51 Range/Units Serum Glucose 107 H 74-106 mg/dL Microbiology Date/Time Source Procedure Growth Status 06/29/24 18:08 Bronchial Washings Gram Stain - Final Complete 06/29/24 18:08 Respiratory Culture - Final Pseudomonas aeruginosa Complete 06/28/24 10:30 Chest Gram Stain - Final Complete 06/28/24 10:30 Chest Anaerobic Culture - Final Complete 06/28/24 10:30 Aerobic Culture - Final Pseudomonas aeruginosa Complete 06/25/24 14:45 Pleural Fluid Gram Stain - Final Complete 06/25/24 14:45 Body Fluid Culture - Final Pseudomonas aeruginosa Complete 06/25/24 06:40 Urine - [place] Port Urine Culture - Final Yeast, not Radha albicans Complete 06/24/24 20:21 Blood Blood Culture - Final NO GROWTH AFTER 5 DAYS OF INCUBATION. Complete Labs and/or images reviewed: Labs reviewed by me, Image(s) reviewed by me Problem List/Assessment/Plan Problem List/Assessment/Plan Problem List/Assessment/Plan ICU Course: A 63-year-old male with a history of heart failure with reduced ejection fraction 20%, severe mitral regurgitation, dilated aortic root of 4.9 cm, moderate pulmonary arterial hypertension, pulmonary embolism, congestive heart failure (CHF) and pulmonary embolism was intubated in the ICU. He developed necrotic pressure ulcers and multiorgan failure, large right pleural effusion, right heart strain, right pulmonary artery embolus, leading to a tracheostomy. A chest tube was placed, and a chest CT was performed. Due to low blood pressure, he required Levophed. Initially was on BiPAP, eventually needed intubation, status post trach, now on minimal vent settings. tolerating well. Hospitalization day: 46 A. Neurology: #Acute metabolic/toxic encephalopathy in the setting of septic shock, improved. 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 Cardiology: # Acute on chronic systolic CHF # heart failure with reduced ejection fraction: Ejection fraction of 20%. # mild AV calcification # severe mitral regurgitation # dilated aortic root 4.9 cm # Atrial flutter, currently sinus rhythm: had sync cardioversion on 05/27/24 # Non-sustained Vtach C. Respiratory: #Acute hypoxic respiratory failure due to Pseudomonas aeruginosa pneumonia, pleural effusions, and pulmonary embolism: on [facility] vent, intubated on 05/26/24, reintubation on 06/12/24 due to ETT leak, extubated 06/26/24, tracheostomy tube placed 06/26/24, trach collar trials started on 07/02/2024: next day satisfactory, so will try full day trach collar tomorrow. #Septic shock due to Pseudomonas aeruginosa pneumonia #Pleural effusions s/p three chest tubes (two on the right; one on the left) right chest tube out, no changes in respiratory status. cxr unremarkable. CT chest planned for tomorrow. Surgical team and pulmonology updated. No further plan noted until CT chest resulted. #moderate pulmonary arterial hypertension #large right pulmonary artery embolus #right hydro pneumothorax with right chest tube in-situ. #Moderate left pleural effusion. Possible chronically under expanded left lung (trapped lung) versus loculated pneumothorax: Facial/surgery team on board, repeat CT chest shows subcutaneous emphysema no surgical intervention. #Large right pleural effusion: s/p multiple thoracentesis, pt has currently 2 chest tubes & last CT 06/16/24 shows Moderate right pleural fluid collection with near complete collapse of the right lower lobe chest tube in place within the collection. #Right lower lobe atelectasis, mildly improved #Multiple mucus plugs status post multiple bronchoscopies #Pneumonia, community acquired, gram +/-, possible superseded fungal infection: Micafungin for infection #pneumomediastinum, hemodynamically stable #Increased left pneumothorax despite the presence of a left chest tube. D. Gastrointestinal: # Transaminitis likely due to sepsis # Moderate colonic diverticulosis # Cholelithiasis, without cholecystitis. # nutrition: Glucerna # constipation: On Colace # Swallow eval passed> nutrition started on oral pureed diet. aspiration precautions to continue. E. Genitourinary: Uncomplicated presumably F. Infectious Disease: # complicated UTI: urine culture reveals Pseudomonas and Enterococcus, appropriately on antibiotics asymptomatic presumably # shock, likely cardiogenic/septic: Negative for hepatitis-B, hepatitis-C, HIV, # Sacral Wound, Unstageable: Status post wound debridement wound care to continue G. Hematology & Oncology: # anemia, normocytic, severe: s/p 1 unit of PRBC transfusion # coagulopathy likely due to sepsis, no active bleeding noted presumably. H. Nephrology: renal function satisfactory. # Hypernatremia, corrected # Hyperkalemia, corrected # hypokalemia , Corrected # RADHA likely due to vasomotor nephropathy, improved monitor BMP closely # metabolic alkalosis with respiratory alkalosis, improved # hypophosphatemia I. Endocrine: # prediabetic with HbA1c of 6.1 J. MSK: # ICU myopathy: Low muscle mass extremely weak K. Prophylaxis: PPI: Pantoprazole DVT: SCDs L. Lines & Drains (with insertion date): PICC line 06/17/24 Left subclavian CVC line 06/05/24, removed 06/17/24 Right femoral A-line 06/03/24, discontinued 06/24/2024 Olsen catheter 05/21/24 right Arterial line 06/26/23 N. Disposition: Remains in [facility], Advance discharge planning with wound vac with social work started. SW consulted input appreciate. O. Vent Settings: off on trach collar trial daily x 3 days. Pressor support at night. The plan was discussed with the ICU attending Dr. Abbasi The patient care consists of total 69 minutes of critical care time excluding the procedures. Dictated by Jose Francisco Gamino MD with 3M MModal Fluency. Plan discussed with: Patient, Other My Orders My Orders Orders - JOSE FRANCISCO GAMINO RESIDENT Procedure Category Date Status Time Pureed DIET 07/05/24 Transmitted Dinner Dietary Evaluation Review Comments: 1. consider Renal Specific 70g protein restriction witn 2GNa, 3K, low Phos, if no diaylsis needed. 2. consider Renal Standard 2gn, 3K, low phosphate diet if Pt is on dialysis. 3. encourage and monitor po intake to meet 75% of his needs. Expected Outcomes/Goals: avoid uremic symptoms, gradual healed wounds. JOSE FRANCISCO GAMINO RESIDENT Jul 05, 2024 22:02
--- NOTE | 2024-07-05 23:31 | DVH ---
CHEST RADIOGRAPH Indication: UNPLANNED CHEST TUBE REMOVAL Technique: Single frontal view of the chest was obtained Comparison: XY CHEST PORTABLE on DOS: 07/05/24, XY CHEST PORTABLE on DOS: 07/04/24, XY CHEST PORTABLE o n DOS: 07/03/24 Findings/ IMPRESSION: Stable tracheostomy tube, enteric tube, right-sided pigtail chest tube, and left-sided chest tube. S table right-sided PICC. No significant change involving the small left-sided pneumothorax with adjace nt subcutaneous emphysema. Possible trace right-sided pneumothorax. Unchanged bilateral patchy opacit ies.
[2024-07-06] VITALS (39 sets, daily range): BP systolic 100–147; BP diastolic 27–66; PULSE 71–93; RESP 11–31; TEMP 98.5–98.9; O2SAT 100
--- NOTE | 2024-07-06 09:37 | DVH ---
CLINICAL INFORMATION: 64 years old, Male; LEFT CHEST TUBE DISLODGEMENT. TECHNIQUE: Axial CT imaging of the chest was performed without IV contrast. Sagittal and coronal ref ormatted images were made, stored and reviewed. Evaluation is limited without IV contrast. One or mor e of the following dose reduction techniques were used: Automated exposure control. Adjustment of mA and/or kV according to patient size. CTDIvol = 13.17 mGy DLP = 541.72 mGy-cm COMPARISON: CT CHEST WITH CONTRAST on DOS: 07/01/24, CT CHEST WITHOUT CONTRAST on DOS: 06/27/24, US CHES T ULTRASOUND on DOS: 06/25/24. Radiographs dated 07/05/2024. FINDINGS: Left chest tube extends into the left lateral pleural space and extends adjacent to the posterior asp ect of the left upper lobe. There is a moderate left hydropneumothorax, predominantly pneumothorax, m inimally changed in overall size compared to the prior CT chest. There is a small to moderate amount of gas in the anterolateral aspect of the left chest wall adjacent to the site of insertion of the c hest tube, decreased in size. There is a small right hydro pneumothorax with pleural catheter in plac e along the lateral aspect of the right lung and coursing adjacent to the posterior aspect of the rig ht upper lobe. The right hydro pneumothorax has decreased in size. There is volume loss in both lungs due to the pneumothoraces. Patchy airspace opacities in the posterior aspect of the right lung overl christoph the hydro pneumothorax also noted. Tracheostomy tube in place. Enteric tube reaches the stomach. No other significant interval changes seen. Partially visualized multiple small gallstones in the ga llbladder. Nodular contour of the liver suggesting cirrhosis. Partially visualized mesenteric edema a nd ascites in the upper abdomen. Diffuse body wall edema / anasarca also noted. Right PICC extends to the SVC/ RA junction. IMPRESSION: 1. Bilateral chest tubes remain in place, as detailed above. Minimal change in overall size of the le ft hydro pneumothorax. Right hydropneumothorax as decreased compared to the prior exam. 2. Additional findings as detailed above.
--- NOTE | 2024-07-06 12:28 | DVHPN2 ---
Progress Note - Surgical Date Seen: Jul 06, 2024 Post op day Post op day: 5 Subjective Review of Systems: Not Done Objective Vital signs Vital Sign Date Time Temp Pulse Resp B/P (MAP) Pulse Ox O2 Delivery O2 Flow Rate FiO2 07/06/24 12:00 20 100 Mechanical Ventilator+ 30 30 07/06/24 11:16 81 07/06/24 11:05 3.0 07/06/24 11:00 125/57 (79) 07/06/24 08:00 98.6 98.6 Total Intake and Output 07/05/24 07/05/24 07/06/24 15:00 23:00 07:00 Intake Total 229.25 ml 373.90 ml 200 ml Output Total 1360 ml 675 ml Balance 229.25 ml -986.10 ml -475 ml Medications Current Medications Medications Dose Ordered Sig/Amy Route Start Time Stop Time Status Last Admin Dose Admin Potassium Chloride 100 ml @ 50 mls/hr Q2H IV 05/27/24 17:15 05/28/24 01:14 UNV Diagnostic Test (Pha) 1 strip Q6HR 05/30/24 18:00 07/05/24 23:43 1 STRIP Insulin Human Regular FOLLOW SLIDING SCALE Q6HR SC 05/30/24 18:00 06/24/24 01:27 2 UNITS Dextrose 50 ml UD IV 05/30/24 12:15 Acetaminophen 650 mg Q6HP PRN PO 05/31/24 19:30 07/05/24 05:13 650 MG Midazolam HCl 50 ml @ 1 mls/hr Q24H IV 06/08/24 20:15 06/27/24 08:50 3 MLS/HR Potassium Chloride 100 ml @ 50 mls/hr Q2H IV 06/13/24 12:45 06/13/24 16:44 UNV Magnesium Sulfate/ Dextrose 100 ml @ 100 mls/hr Q1HR IV 06/13/24 13:00 06/13/24 14:59 UNV Cefepime HCl 50 ml @ 12.5 mls/hr Q8HR IV 06/13/24 14:00 UNV Sodium Chloride 10 ml QSHIFT@10,22 IV 06/17/24 22:00 07/06/24 10:08 10 ML Pantoprazole Sodium 40 mg DAILY IV 06/18/24 10:00 07/06/24 10:07 40 MG Vasopressin 20 units/Sodium Chloride 100 ml @ 9 mls/hr Q11H7M IV 06/21/24 07:45 06/23/24 23:25 9 MLS/HR Enteral Nutritional Formula 1,000 ml 50ML/HR GT 06/25/24 10:30 07/05/24 04:57 1,000 ML Amiodarone HCl 200 mg DAILY PO 06/26/24 13:30 07/06/24 10:07 200 MG Micafungin Sodium 100 mg/Sodium Chloride 100 ml @ 100 mls/hr DAILY IV 06/28/24 10:00 07/06/24 10:08 100 MLS/HR Albuterol 2.5 mg Q6HR NEB 06/29/24 12:40 07/06/24 11:05 2.5 MG Ipratropium [place] 0.5 mg Q6HR NEB 06/29/24 12:41 07/06/24 11:05 0.5 MG Acetylcysteine 200 mg Q6HR NEB 06/29/24 12:41 07/06/24 11:06 200 MG Ceftolozane/ Tazobactam 3 gm/ Dextrose 100 ml @ 33.333 mls/ hr Q8H IV 06/30/24 18:00 07/06/24 10:59 33.333 MLS/HR Fentanyl Citrate 250 ml @ 2.5 mls/hr Q24H IV 07/03/24 06:00 07/03/24 06:00 2.5 MLS/HR Morphine Sulfate 2 mg Q4HPRN PRN IV 07/04/24 13:00 Hydralazine HCl 10 mg Q6HP PRN IV 07/04/24 18:30 Alprazolam 0.25 mg TIDPRN PRN PO 07/05/24 14:00 Laboratory Laboratory Tests 07/04/24 04:53 07/03/24 04:51 Test 07/03/24 04:51 Range/Units Serum Glucose 107 H 74-106 mg/dL Microbiology Date/Time Source Procedure Growth Status 06/29/24 18:08 Bronchial Washings Gram Stain - Final Complete 06/29/24 18:08 Respiratory Culture - Final Pseudomonas aeruginosa Complete 06/28/24 10:30 Chest Gram Stain - Final Complete 06/28/24 10:30 Chest Anaerobic Culture - Final Complete 06/28/24 10:30 Aerobic Culture - Final Pseudomonas aeruginosa Complete 06/25/24 14:45 Pleural Fluid Gram Stain - Final Complete 06/25/24 14:45 Body Fluid Culture - Final Pseudomonas aeruginosa Complete 06/25/24 06:40 Urine - [place] Urine Culture - Final Yeast, not Radha albicans Complete 06/24/24 20:21 Blood Blood Culture - Final NO GROWTH AFTER 5 DAYS OF INCUBATION. Complete Examination: GENERAL:Normal (ventilator ), HEENT:Normal, LUNGS:Abnormal (chest tubes , ventilator ), CVS:Normal, ABDOMEN:Normal, SKIN:Normal (warm , dry ) Labs and/or images reviewed: Labs reviewed by me, Image(s) reviewed by me Problem List/Assessment/Plan Problems: (1) Chest tube in place (2) Pneumothorax Assessment and Plan chest tube in place , air leak , notes , image reports reviewed , discussed withDr. Tilley continue current treatment Plan discussed with Plan discussed with: Other Visit Coding Surgery Date of Service if different f: Jul 06, 2024 Billing Provider: JIHAN TILLEY MD Surgery Visit Codes: [id number] INP/OBS CARE(HIGH) NITA CEDENO COOK SUPERVISOR Jul 06, 2024 12:28
--- NOTE | 2024-07-06 13:02 | DVHPN2 ---
Progress Note - Dictate Date Seen: Jul 06, 2024 Has the PT tested + for MRSA If YES, has PT been informed?: No Medical Necessity Reason Pt with a Central, PICC or Fol: No The following are medically ne: Central Line, Olsen Catheter Reason for olsen catheter: Strict I&O vital signs Vital Sign Date Time Temp Pulse Resp B/P (MAP) Pulse Ox O2 Delivery O2 Flow Rate FiO2 07/06/24 12:00 20 100 Mechanical Ventilator+ 30 30 07/06/24 11:16 81 07/06/24 11:05 3.0 07/06/24 11:00 125/57 (79) 07/06/24 08:00 98.6 98.6 Total Intake and Output 07/05/24 07/05/24 07/06/24 15:00 23:00 07:00 Intake Total 229.25 ml 373.90 ml 200 ml Output Total 1360 ml 675 ml Balance 229.25 ml -986.10 ml -475 ml medications Current Medications Medications Dose Ordered Sig/Amy Route Start Time Stop Time Status Last Admin Dose Admin Potassium Chloride 100 ml @ 50 mls/hr Q2H IV 05/27/24 17:15 05/28/24 01:14 UNV Diagnostic Test (Pha) 1 strip Q6HR 05/30/24 18:00 07/06/24 12:28 1 STRIP Insulin Human Regular FOLLOW SLIDING SCALE Q6HR SC 05/30/24 18:00 06/24/24 01:27 2 UNITS Dextrose 50 ml UD IV 05/30/24 12:15 Acetaminophen 650 mg Q6HP PRN PO 05/31/24 19:30 07/05/24 05:13 650 MG Midazolam HCl 50 ml @ 1 mls/hr Q24H IV 06/08/24 20:15 06/27/24 08:50 3 MLS/HR Potassium Chloride 100 ml @ 50 mls/hr Q2H IV 06/13/24 12:45 06/13/24 16:44 UNV Magnesium Sulfate/ Dextrose 100 ml @ 100 mls/hr Q1HR IV 06/13/24 13:00 06/13/24 14:59 UNV Cefepime HCl 50 ml @ 12.5 mls/hr Q8HR IV 06/13/24 14:00 UNV Sodium Chloride 10 ml QSHIFT@10,22 IV 06/17/24 22:00 07/06/24 10:08 10 ML Pantoprazole Sodium 40 mg DAILY IV 06/18/24 10:00 07/06/24 10:07 40 MG Vasopressin 20 units/Sodium Chloride 100 ml @ 9 mls/hr Q11H7M IV 06/21/24 07:45 06/23/24 23:25 9 MLS/HR Enteral Nutritional Formula 1,000 ml 50ML/HR GT 06/25/24 10:30 07/05/24 04:57 1,000 ML Amiodarone HCl 200 mg DAILY PO 06/26/24 13:30 07/06/24 10:07 200 MG Micafungin Sodium 100 mg/Sodium Chloride 100 ml @ 100 mls/hr DAILY IV 06/28/24 10:00 07/06/24 10:08 100 MLS/HR Albuterol 2.5 mg Q6HR NEB 06/29/24 12:40 07/06/24 11:05 2.5 MG Ipratropium [place] 0.5 mg Q6HR NEB 06/29/24 12:41 07/06/24 11:05 0.5 MG Acetylcysteine 200 mg Q6HR NEB 06/29/24 12:41 07/06/24 11:06 200 MG Ceftolozane/ Tazobactam 3 gm/ Dextrose 100 ml @ 33.333 mls/ hr Q8H IV 06/30/24 18:00 07/06/24 10:59 33.333 MLS/HR Fentanyl Citrate 250 ml @ 2.5 mls/hr Q24H IV 07/03/24 06:00 07/03/24 06:00 2.5 MLS/HR Morphine Sulfate 2 mg Q4HPRN PRN IV 07/04/24 13:00 Hydralazine HCl 10 mg Q6HP PRN IV 07/04/24 18:30 Alprazolam 0.25 mg TIDPRN PRN PO 07/05/24 14:00 laboratory and microbiology Laboratory Tests 07/04/24 04:53 07/03/24 04:51 Test 07/03/24 04:51 Range/Units Serum Glucose 107 H 74-106 mg/dL Problem List Assessment/Plan Impression: Acute hypoxic respiratory failure Mechanical ventilator Pleural effusion, right Atelectasis CHF exacerbation Pulmonary embolism Obesity with a BMI of 30.1 Pneumonia, likely gram negative Sacral wound Events: seen and examined s/p trache on trache collar on precedex prn hemodynamics stable S/p placement of 3 chest tubes Wound VAC plan Continue antibiotics IV fluids w/ normal saline TPN for nutritional support Monitor hemoglobin Monitor renal function Monitor electrolytes. Supplement as necessary. Monitor ins and outs Nephrology recs appreciated. Wound care Surgery recs appreciated. Continue antibiotics F/u cultures. Sputum cultures grew Staph aureus and Pseudomonas aeruginosa. Monitor renal function due to Acute kidney injury. Monitor electrolytes. Supplement as necessary. Monitor ins and outs Maintain euvolemia Cardiology recommendations appreciated. Nutritional support. Accu-Cheks, ISS. GI/DVT prophylaxis. Condition: Critical Prognosis: Poor given multiple comorbidities. crit care time 35 min Dietary Evaluation Review Comments: 1. consider Renal Specific 70g protein restriction witn 2GNa, 3K, low Phos, if no diaylsis needed. 2. consider Renal Standard 2gn, 3K, low phosphate diet if Pt is on dialysis. 3. encourage and monitor po intake to meet 75% of his needs. Expected Outcomes/Goals: avoid uremic symptoms, gradual healed wounds. Plan discussed with: Patient AMAURY MERLOS MD Jul 06, 2024 13:02
--- NOTE | 2024-07-06 13:09 | DVHPN2 ---
Subjective The patient is seen and examined at bedside. No change overnight. Reviewed: Care Plan, H&P, Labs, Medications, Previous Orders, Radiology, Other (Consultations) Changes from previous H/P or p: No Changes Objective Vitals Vital Signs Date Time Temp Pulse Resp B/P (MAP) Pulse Ox O2 Delivery O2 Flow Rate FiO2 07/06/24 12:00 20 100 Mechanical Ventilator+ 30 30 07/06/24 11:16 81 07/06/24 11:05 3.0 07/06/24 11:00 125/57 (79) 07/06/24 08:00 98.6 98.6 Intake/Output Intake and Output 07/06/24 07:00 Intake Total 803.15 ml Output Total 2035 ml Balance -1231.85 ml Intake Oral 250 ml IV Total 233.15 ml Tube Feeding 320 ml Output Urine Total 1550 ml Stool Total 125 ml Chest Tube Drainage Total 360 ml General Appearance: Other (Sedated) HEENT: Atraumatic Neck: Other (tracheostomy) Lungs: Other (MV sounds) Chest/Breasts: Other (Two right-sided chest tubes; and one left-sided chest tube) Cardiovascular: Regular rate, Normal S1, Normal S2 Abdomen: Normal bowel sounds, Soft Genitourinary: Other (Burk[place]) Neuro: Other (Sedated) Psych/Mental Status: Other (Sedated) Medications Current Medications Medications Dose Ordered Sig/Amy Route Start Time Stop Time Status Last Admin Dose Admin Potassium Chloride 100 ml @ 50 mls/hr Q2H IV 05/27/24 17:15 05/28/24 01:14 UNV Diagnostic Test (Pha) 1 strip Q6HR 05/30/24 18:00 07/06/24 12:28 1 STRIP Insulin Human Regular FOLLOW SLIDING SCALE Q6HR SC 05/30/24 18:00 06/24/24 01:27 2 UNITS Dextrose 50 ml UD IV 05/30/24 12:15 Acetaminophen 650 mg Q6HP PRN PO 05/31/24 19:30 07/05/24 05:13 650 MG Midazolam HCl 50 ml @ 1 mls/hr Q24H IV 06/08/24 20:15 06/27/24 08:50 3 MLS/HR Potassium Chloride 100 ml @ 50 mls/hr Q2H IV 06/13/24 12:45 06/13/24 16:44 UNV Magnesium Sulfate/ Dextrose 100 ml @ 100 mls/hr Q1HR IV 06/13/24 13:00 06/13/24 14:59 UNV Cefepime HCl 50 ml @ 12.5 mls/hr Q8HR IV 06/13/24 14:00 UNV Sodium Chloride 10 ml QSHIFT@10,22 IV 06/17/24 22:00 07/06/24 10:08 10 ML Pantoprazole Sodium 40 mg DAILY IV 06/18/24 10:00 07/06/24 10:07 40 MG Vasopressin 20 units/Sodium Chloride 100 ml @ 9 mls/hr Q11H7M IV 06/21/24 07:45 06/23/24 23:25 9 MLS/HR Enteral Nutritional Formula 1,000 ml 50ML/HR GT 06/25/24 10:30 07/05/24 04:57 1,000 ML Amiodarone HCl 200 mg DAILY PO 06/26/24 13:30 07/06/24 10:07 200 MG Micafungin Sodium 100 mg/Sodium Chloride 100 ml @ 100 mls/hr DAILY IV 06/28/24 10:00 07/06/24 10:08 100 MLS/HR Albuterol 2.5 mg Q6HR NEB 06/29/24 12:40 07/06/24 11:05 2.5 MG Ipratropium [place] 0.5 mg Q6HR NEB 06/29/24 12:41 07/06/24 11:05 0.5 MG Acetylcysteine 200 mg Q6HR NEB 06/29/24 12:41 07/06/24 11:06 200 MG Ceftolozane/ Tazobactam 3 gm/ Dextrose 100 ml @ 33.333 mls/ hr Q8H IV 06/30/24 18:00 07/06/24 10:59 33.333 MLS/HR Fentanyl Citrate 250 ml @ 2.5 mls/hr Q24H IV 07/03/24 06:00 07/03/24 06:00 2.5 MLS/HR Morphine Sulfate 2 mg Q4HPRN PRN IV 07/04/24 13:00 Hydralazine HCl 10 mg Q6HP PRN IV 07/04/24 18:30 Alprazolam 0.25 mg TIDPRN PRN PO 07/05/24 14:00 Laboratory Results Laboratory Tests 07/03/24 04:51 07/04/24 04:53 Urinalysis Test 05/19/24 10:08 Urine Color Yellow (Yellow) Urine Clarity Turbid (Clear) H Urine pH 5.0 (5.0-9.0) Urine Specific [place] 1.012 (1.001-1.035) Urine Protein 1+ (Negative) H Urine Ketones Negative (Negative) Urine Blood Negative /uL (Negative) Urine Nitrite Negative (Negative) Urine Bilirubin Negative (Negative) Urine Urobilinogen 3 mg/dL (Negative) H Urine Leukocyte Esterase Negative /uL (Negative) Urine RBC 1 /hpf (0 - 3) Urine WBC 3 /hpf (0 - 3) Urine Squamous Epithelial Cells Few /hpf (<5) Urine Bacteria None seen /hpf (None Seen) Urine Hyaline Casts Many /lpf (0 - 2) Urine Mucus Few (None Seen) Urine Glucose Normal mg/dL (Normal) Microbiology Microbiology Date/Time Source Procedure Growth Status 06/29/24 18:08 Bronchial Washings Gram Stain - Final Complete 06/29/24 18:08 Respiratory Culture - Final Pseudomonas aeruginosa Complete 06/28/24 10:30 Chest Gram Stain - Final Complete 06/28/24 10:30 Chest Anaerobic Culture - Final Complete 06/28/24 10:30 Aerobic Culture - Final Pseudomonas aeruginosa Complete 06/25/24 14:45 Pleural Fluid Gram Stain - Final Complete 06/25/24 14:45 Body Fluid Culture - Final Pseudomonas aeruginosa Complete 06/25/24 06:40 Urine - [place] Urine Culture - Final Yeast, not Radha albicans Complete 06/24/24 20:21 Blood Blood Culture - Final NO GROWTH AFTER 5 DAYS OF INCUBATION. Complete Labs and/or images reviewed: Labs reviewed by me Assessment/Plan Assessment/Plan ICU Course: A 63-year-old male with a history of heart failure with reduced ejection fraction 20%, severe mitral regurgitation, dilated aortic root of 4.9 cm, moderate pulmonary arterial hypertension, pulmonary embolism, congestive heart failure (CHF) and pulmonary embolism was intubated in the ICU. He developed necrotic pressure ulcers and multiorgan failure, large right pleural effusion, right heart strain, right pulmonary artery embolus, leading to a tracheostomy. A chest tube was placed, and a chest CT was performed. Due to low blood pressure, he required Levophed. Initially was on BiPAP, eventually needed intubation, status post trach, now on minimal vent settings. tolerating well. Hospitalization day: 47 A. Neurology: #Acute metabolic/toxic encephalopathy in the setting of septic shock, improved. 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 Cardiology: # Acute on chronic systolic CHF # heart failure with reduced ejection fraction: Ejection fraction of 20%. # mild AV calcification # severe mitral regurgitation # dilated aortic root 4.9 cm # Atrial flutter, currently sinus rhythm: had sync cardioversion on 05/27/24 # Non-sustained Vtach C. Respiratory: #Acute hypoxic respiratory failure due to Pseudomonas aeruginosa pneumonia, pleural effusions, and pulmonary embolism: on [facility] vent, intubated on 05/26/24, reintubation on 06/12/24 due to ETT leak, extubated 06/26/24, tracheostomy tube placed 06/26/24, trach collar trials started on 07/02/2024: next day satisfactory, so will try full day trach collar tomorrow. #Septic shock due to Pseudomonas aeruginosa pneumonia #Pleural effusions s/p three chest tubes (two on the right; one on the left) right chest tube out, no changes in respiratory status. cxr unremarkable. CT chest planned for tomorrow. Surgical team and pulmonology updated. No further plan noted until CT chest resulted. #moderate pulmonary arterial hypertension #large right pulmonary artery embolus #right hydro pneumothorax with right chest tube in-situ. #Moderate left pleural effusion. Possible chronically under expanded left lung (trapped lung) versus loculated pneumothorax: Facial/surgery team on board, repeat CT chest shows subcutaneous emphysema no surgical intervention. #Large right pleural effusion: s/p multiple thoracentesis, pt has currently 2 chest tubes & last CT 06/16/24 shows Moderate right pleural fluid collection with near complete collapse of the right lower lobe chest tube in place within the collection. #Right lower lobe atelectasis, mildly improved #Multiple mucus plugs status post multiple bronchoscopies #Pneumonia, community acquired, gram +/-, possible superseded fungal infection: Micafungin for infection #pneumomediastinum, hemodynamically stable #Increased left pneumothorax despite the presence of a left chest tube. D. Gastrointestinal: # Transaminitis likely due to sepsis # Moderate colonic diverticulosis # Cholelithiasis, without cholecystitis. # nutrition: Glucerna # constipation: On Colace # Swallow eval passed> nutrition started on oral pureed diet. aspiration precautions to continue. E. Genitourinary: Uncomplicated presumably F. Infectious Disease: # complicated UTI: urine culture reveals Pseudomonas and Enterococcus, appropriately on antibiotics asymptomatic presumably # shock, likely cardiogenic/septic: Negative for hepatitis-B, hepatitis-C, HIV, # Sacral Wound, Unstageable: Status post wound debridement wound care to continue G. Hematology & Oncology: # anemia, normocytic, severe: s/p 1 unit of PRBC transfusion # coagulopathy likely due to sepsis, no active bleeding noted presumably. H. Nephrology: renal function satisfactory. # Hypernatremia, corrected # Hyperkalemia, corrected # hypokalemia , Corrected # RADHA likely due to vasomotor nephropathy, improved monitor BMP closely # metabolic alkalosis with respiratory alkalosis, improved # hypophosphatemia I. Endocrine: # prediabetic with HbA1c of 6.1 J. MSK: # ICU myopathy: Low muscle mass extremely weak K. Prophylaxis: PPI: Pantoprazole DVT: SCDs L. Lines & Drains (with insertion date): PICC line 06/17/24 Left subclavian CVC line 06/05/24, removed 06/17/24 Right femoral A-line 06/03/24, discontinued 06/24/2024 Burk catheter 05/21/24 right Arterial line 06/26/23 N. Disposition: Remains in [facility], Advance discharge planning with wound vac with social work started. SW consulted input appreciate. O. Vent Settings: off on trach collar trial daily x 3 days. Pressor support at night. Continuing current management. Waiting for placement. This medical document was created using an electronic medical record system with [employer] computerized dictation system. Although this document has been carefully reviewed, there may still be some phonetic and typographical errors. These areas are purely typographical due to imperfections of the software programs, and do not reflect any compromise in the patient's medical care. Plan discussed with: Other (RN) Date of Service: Jul 06, 2024 Billing Provider: AMAURY HAGEN MD Common Visit Codes: [id number] INP/OBS CARE(HIGH) AMAURY HAGEN MD Jul 06, 2024 13:09
[2024-07-07] VITALS (34 sets, daily range): BP systolic 90–131; BP diastolic 44–66; PULSE 44–95; RESP 12–31; TEMP 97.8–98.6; O2SAT 90–100
--- NOTE | 2024-07-07 12:14 | DVHPN2 ---
Progress Note - Dictate Date Seen: Jul 07, 2024 Has the PT tested + for MRSA If YES, has PT been informed?: No Medical Necessity Reason Pt with a Central, PICC or Fol: No The following are medically ne: Central Line, Olsen Catheter Reason for olsen catheter: Strict I&O vital signs Vital Sign Date Time Temp Pulse Resp B/P (MAP) Pulse Ox O2 Delivery O2 Flow Rate FiO2 07/07/24 07:28 100 Nasal Cannula* 3 32 07/07/24 07:16 71 20 07/07/24 06:00 126/48 (74) 07/07/24 04:00 98.4 98.4 Total Intake and Output 07/06/24 07/06/24 07/07/24 14:59 22:59 06:59 Intake Total 800 ml 733.333 ml 500 ml Output Total 980 ml 775 ml Balance 800 ml -246.667 ml -275 ml medications Current Medications Medications Dose Ordered Sig/Amy Route Start Time Stop Time Status Last Admin Dose Admin Potassium Chloride 100 ml @ 50 mls/hr Q2H IV 05/27/24 17:15 05/28/24 01:14 UNV Acetaminophen 650 mg Q6HP PRN PO 05/31/24 19:30 07/05/24 05:13 650 MG Midazolam HCl 50 ml @ 1 mls/hr Q24H IV 06/08/24 20:15 06/27/24 08:50 3 MLS/HR Potassium Chloride 100 ml @ 50 mls/hr Q2H IV 06/13/24 12:45 06/13/24 16:44 UNV Magnesium Sulfate/ Dextrose 100 ml @ 100 mls/hr Q1HR IV 06/13/24 13:00 06/13/24 14:59 UNV Cefepime HCl 50 ml @ 12.5 mls/hr Q8HR IV 06/13/24 14:00 UNV Sodium Chloride 10 ml QSHIFT@10,22 IV 06/17/24 22:00 07/07/24 10:03 10 ML Pantoprazole Sodium 40 mg DAILY IV 06/18/24 10:00 07/07/24 10:04 40 MG Vasopressin 20 units/Sodium Chloride 100 ml @ 9 mls/hr Q11H7M IV 06/21/24 07:45 06/23/24 23:25 9 MLS/HR Enteral Nutritional Formula 1,000 ml 50ML/HR GT 06/25/24 10:30 07/05/24 04:57 1,000 ML Amiodarone HCl 200 mg DAILY PO 06/26/24 13:30 07/07/24 10:05 200 MG Micafungin Sodium 100 mg/Sodium Chloride 100 ml @ 100 mls/hr DAILY IV 06/28/24 10:00 07/07/24 10:43 100 MLS/HR Albuterol 2.5 mg Q6HR NEB 06/29/24 12:40 07/07/24 07:05 2.5 MG Ipratropium [place] 0.5 mg Q6HR NEB 06/29/24 12:41 07/07/24 07:05 0.5 MG Acetylcysteine 200 mg Q6HR NEB 06/29/24 12:41 07/07/24 07:05 200 MG Ceftolozane/ Tazobactam 3 gm/ Dextrose 100 ml @ 33.333 mls/ hr Q8H IV 06/30/24 18:00 07/07/24 10:04 33.333 MLS/HR Fentanyl Citrate 250 ml @ 2.5 mls/hr Q24H IV 07/03/24 06:00 07/03/24 06:00 2.5 MLS/HR Morphine Sulfate 2 mg Q4HPRN PRN IV 07/04/24 13:00 Hydralazine HCl 10 mg Q6HP PRN IV 07/04/24 18:30 Alprazolam 0.25 mg TIDPRN PRN PO 07/05/24 14:00 laboratory and microbiology Laboratory Tests 07/04/24 04:53 07/03/24 04:51 Test 07/03/24 04:51 Range/Units Serum Glucose 107 H 74-106 mg/dL Problem List Assessment/Plan Impression: Acute hypoxic respiratory failure Mechanical ventilator Pleural effusion, right Atelectasis CHF exacerbation Pulmonary embolism Obesity with a BMI of 30.1 Pneumonia, likely gram negative Sacral wound Events: seen and examined n events s/p trache on trache collar no distress hemodynamics stable S/p placement of 3 chest tubes Wound VAC plan Continue antibiotics IV fluids w/ normal saline TPN for nutritional support Monitor hemoglobin Monitor renal function Monitor electrolytes. Supplement as necessary. Monitor ins and outs Nephrology recs appreciated. Wound care Surgery recs appreciated. Continue antibiotics F/u cultures. Sputum cultures grew Staph aureus and Pseudomonas aeruginosa. Monitor renal function due to Acute kidney injury. Monitor electrolytes. Supplement as necessary. Monitor ins and outs Maintain euvolemia Cardiology recommendations appreciated. Nutritional support. Accu-Cheks, ISS. GI/DVT prophylaxis. Condition: Critical Prognosis: Poor given multiple comorbidities. crit care time 35 min Dietary Evaluation Review Comments: 1. consider Renal Specific 70g protein restriction witn 2GNa, 3K, low Phos, if no diaylsis needed. 2. consider Renal Standard 2gn, 3K, low phosphate diet if Pt is on dialysis. 3. encourage and monitor po intake to meet 75% of his needs. Expected Outcomes/Goals: avoid uremic symptoms, gradual healed wounds. Plan discussed with: Patient AMAURY MERLOS MD Jul 07, 2024 12:14
--- NOTE | 2024-07-07 12:28 | DVHPN2 ---
Subjective The patient is seen and examined at bedside. No change overnight. More alert, awake. Reviewed: Care Plan, H&P, Labs, Medications, Previous Orders, Radiology, Other (Consultations) Changes from previous H/P or p: No Changes Objective Vitals Vital Signs Date Time Temp Pulse Resp B/P (MAP) Pulse Ox O2 Delivery O2 Flow Rate FiO2 07/07/24 07:28 100 Nasal Cannula* 3 32 07/07/24 07:16 71 20 07/07/24 06:00 126/48 (74) 07/07/24 04:00 98.4 98.4 Intake/Output Intake and Output 07/07/24 07:00 Intake Total 2033.333 ml Output Total 1755 ml Balance 278.333 ml Intake Oral 1780 ml IV Total 253.333 ml Output Urine Total 975 ml Stool Total 50 ml Chest Tube Drainage Total 655 ml Other 75 ml # Bowel Movements 1 General Appearance: Other (Sedated) HEENT: Atraumatic Neck: Other (tracheostomy) Lungs: Other (MV sounds) Chest/Breasts: Other (Two right-sided chest tubes; and one left-sided chest tube) Cardiovascular: Regular rate, Normal S1, Normal S2 Abdomen: Normal bowel sounds, Soft Genitourinary: Other (Burk[place]) Neuro: Other (Sedated) Psych/Mental Status: Other (Sedated) Medications Current Medications Medications Dose Ordered Sig/Amy Route Start Time Stop Time Status Last Admin Dose Admin Potassium Chloride 100 ml @ 50 mls/hr Q2H IV 05/27/24 17:15 05/28/24 01:14 UNV Acetaminophen 650 mg Q6HP PRN PO 05/31/24 19:30 07/05/24 05:13 650 MG Midazolam HCl 50 ml @ 1 mls/hr Q24H IV 06/08/24 20:15 06/27/24 08:50 3 MLS/HR Potassium Chloride 100 ml @ 50 mls/hr Q2H IV 06/13/24 12:45 06/13/24 16:44 UNV Magnesium Sulfate/ Dextrose 100 ml @ 100 mls/hr Q1HR IV 06/13/24 13:00 06/13/24 14:59 UNV Cefepime HCl 50 ml @ 12.5 mls/hr Q8HR IV 06/13/24 14:00 UNV Sodium Chloride 10 ml QSHIFT@10,22 IV 06/17/24 22:00 07/07/24 10:03 10 ML Pantoprazole Sodium 40 mg DAILY IV 06/18/24 10:00 07/07/24 10:04 40 MG Vasopressin 20 units/Sodium Chloride 100 ml @ 9 mls/hr Q11H7M IV 06/21/24 07:45 06/23/24 23:25 9 MLS/HR Enteral Nutritional Formula 1,000 ml 50ML/HR GT 06/25/24 10:30 07/05/24 04:57 1,000 ML Amiodarone HCl 200 mg DAILY PO 06/26/24 13:30 07/07/24 10:05 200 MG Micafungin Sodium 100 mg/Sodium Chloride 100 ml @ 100 mls/hr DAILY IV 06/28/24 10:00 07/07/24 10:43 100 MLS/HR Albuterol 2.5 mg Q6HR NEB 06/29/24 12:40 07/07/24 07:05 2.5 MG Ipratropium [place] 0.5 mg Q6HR NEB 06/29/24 12:41 07/07/24 07:05 0.5 MG Acetylcysteine 200 mg Q6HR NEB 06/29/24 12:41 07/07/24 07:05 200 MG Ceftolozane/ Tazobactam 3 gm/ Dextrose 100 ml @ 33.333 mls/ hr Q8H IV 06/30/24 18:00 07/07/24 10:04 33.333 MLS/HR Fentanyl Citrate 250 ml @ 2.5 mls/hr Q24H IV 07/03/24 06:00 07/03/24 06:00 2.5 MLS/HR Morphine Sulfate 2 mg Q4HPRN PRN IV 07/04/24 13:00 Hydralazine HCl 10 mg Q6HP PRN IV 07/04/24 18:30 Alprazolam 0.25 mg TIDPRN PRN PO 07/05/24 14:00 Laboratory Results Laboratory Tests 07/03/24 04:51 07/04/24 04:53 Urinalysis Test 05/19/24 10:08 Urine Color Yellow (Yellow) Urine Clarity Turbid (Clear) H Urine pH 5.0 (5.0-9.0) Urine Specific [place] 1.012 (1.001-1.035) Urine Protein 1+ (Negative) H Urine Ketones Negative (Negative) Urine Blood Negative /uL (Negative) Urine Nitrite Negative (Negative) Urine Bilirubin Negative (Negative) Urine Urobilinogen 3 mg/dL (Negative) H Urine Leukocyte Esterase Negative /uL (Negative) Urine RBC 1 /hpf (0 - 3) Urine WBC 3 /hpf (0 - 3) Urine Squamous Epithelial Cells Few /hpf (<5) Urine Bacteria None seen /hpf (None Seen) Urine Hyaline Casts Many /lpf (0 - 2) Urine Mucus Few (None Seen) Urine Glucose Normal mg/dL (Normal) Microbiology Microbiology Date/Time Source Procedure Growth Status 06/29/24 18:08 Bronchial Washings Gram Stain - Final Complete 06/29/24 18:08 Respiratory Culture - Final Pseudomonas aeruginosa Complete 06/28/24 10:30 Chest Gram Stain - Final Complete 06/28/24 10:30 Chest Anaerobic Culture - Final Complete 06/28/24 10:30 Aerobic Culture - Final Pseudomonas aeruginosa Complete 06/25/24 14:45 Pleural Fluid Gram Stain - Final Complete 06/25/24 14:45 Body Fluid Culture - Final Pseudomonas aeruginosa Complete 06/25/24 06:40 Urine - [place] Urine Culture - Final Yeast, not Radha albicans Complete 06/24/24 20:21 Blood Blood Culture - Final NO GROWTH AFTER 5 DAYS OF INCUBATION. Complete Labs and/or images reviewed: Labs reviewed by me Assessment/Plan Assessment/Plan ICU Course: A 63-year-old male with a history of heart failure with reduced ejection fraction 20%, severe mitral regurgitation, dilated aortic root of 4.9 cm, moderate pulmonary arterial hypertension, pulmonary embolism, congestive heart failure (CHF) and pulmonary embolism was intubated in the ICU. He developed necrotic pressure ulcers and multiorgan failure, large right pleural effusion, right heart strain, right pulmonary artery embolus, leading to a tracheostomy. A chest tube was placed, and a chest CT was performed. Due to low blood pressure, he required Levophed. Initially was on BiPAP, eventually needed intubation, status post trach, now on minimal vent settings. tolerating well. Hospitalization day: 48 A. Neurology: #Acute metabolic/toxic encephalopathy in the setting of septic shock, improved. 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 Cardiology: # Acute on chronic systolic CHF # heart failure with reduced ejection fraction: Ejection fraction of 20%. # mild AV calcification # severe mitral regurgitation # dilated aortic root 4.9 cm # Atrial flutter, currently sinus rhythm: had sync cardioversion on 05/27/24 # Non-sustained Vtach C. Respiratory: #Acute hypoxic respiratory failure due to Pseudomonas aeruginosa pneumonia, pleural effusions, and pulmonary embolism: on [facility] vent, intubated on 05/26/24, reintubation on 06/12/24 due to ETT leak, extubated 06/26/24, tracheostomy tube placed 06/26/24, trach collar trials started on 07/02/2024: next day satisfactory, so will try full day trach collar tomorrow. #Septic shock due to Pseudomonas aeruginosa pneumonia #Pleural effusions s/p three chest tubes (two on the right; one on the left) right chest tube out, no changes in respiratory status. cxr unremarkable. CT chest planned for tomorrow. Surgical team and pulmonology updated. No further plan noted until CT chest resulted. #moderate pulmonary arterial hypertension #large right pulmonary artery embolus #right hydro pneumothorax with right chest tube in-situ. #Moderate left pleural effusion. 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 Gong/surgery team on board, repeat CT chest shows subcutaneous emphysema no surgical intervention. #Large right pleural effusion: s/p multiple thoracentesis, pt has currently 2 chest tubes & last CT 06/16/24 shows Moderate right pleural fluid collection with near complete collapse of the right lower lobe chest tube in place within the collection. #Right lower lobe atelectasis, mildly improved #Multiple mucus plugs status post multiple bronchoscopies #Pneumonia, community acquired, gram +/-, possible superseded fungal infection: Micafungin for infection #pneumomediastinum, hemodynamically stable #Increased left pneumothorax despite the presence of a left chest tube. D. Gastrointestinal: # Transaminitis likely due to sepsis # Moderate colonic diverticulosis # Cholelithiasis, without cholecystitis. # nutrition: Glucerna # constipation: On Colace # Swallow eval passed> nutrition started on oral pureed diet. aspiration precautions to continue. E. Genitourinary: Uncomplicated presumably F. Infectious Disease: # complicated UTI: urine culture reveals Pseudomonas and Enterococcus, appropriately on antibiotics asymptomatic presumably # shock, likely cardiogenic/septic: Negative for hepatitis-B, hepatitis-C, HIV, # Sacral Wound, Unstageable: Status post wound debridement wound care to continue G. Hematology & Oncology: # anemia, normocytic, severe: s/p 1 unit of PRBC transfusion # coagulopathy likely due to sepsis, no active bleeding noted presumably. H. Nephrology: renal function satisfactory. # Hypernatremia, corrected # Hyperkalemia, corrected # hypokalemia , Corrected # RADHA likely due to vasomotor nephropathy, improved monitor BMP closely # metabolic alkalosis with respiratory alkalosis, improved # hypophosphatemia I. Endocrine: # prediabetic with HbA1c of 6.1 J. MSK: # ICU myopathy: Low muscle mass extremely weak K. Prophylaxis: PPI: Pantoprazole DVT: SCDs L. Lines & Drains (with insertion date): PICC line 06/17/24 Left subclavian CVC line 06/05/24, removed 06/17/24 Right femoral A-line 06/03/24, discontinued 06/24/2024 Burk catheter 05/21/24 right Arterial line 06/26/23 N. Disposition: Remains in [facility], Advance discharge planning with wound vac with social work started. SW consulted input appreciate. O. Vent Settings: off on trach collar trial daily x 3 days. Pressor support at night. Continuing current management. Waiting for placement. Will check labs in am. This medical document was created using an electronic medical record system with [employer] direct computerized dictation system. Although this document has been carefully reviewed, there may still be some phonetic and typographical errors. These areas are purely typographical due to imperfections of the software programs, and do not reflect any compromise in the patient's medical care. Plan discussed with: Patient, Other (RN) Date of Service: Jul 07, 2024 Billing Provider: AMAURY HAGEN MD Common Visit Codes: [id number] INP/OBS CARE(HIGH) AMAURY HAGEN MD Jul 07, 2024 12:28
[2024-07-08] VITALS (64 sets, daily range): BP systolic 98–126; BP diastolic 41–57; PULSE 76–96; RESP 12–32; TEMP 97.2–98.4; O2SAT 88–100
[2024-07-08] MEDS: MORPHINE SULFATE INJ 2 MG/ml SYRG IV PRN (01:13)
[2024-07-08 07:38] LABS: Basophils # (auto) 0.1 10 ^3/uL (0-0.2); Basophils % (auto) 0.8 % (0.0-2.0); Eosinophils # (auto) 0.2 10 ^3/uL (0-0.8); Eosinophils % (auto) 2.9 % (0.0-7.0); Hematocrit 27.5 % (41.0-53.0); Lymphocytes # (auto) 1.6 10 ^3/uL (0.4-5.4); Mean Corpuscular Hemoglobin 27.2 pg (28.0-32.0); Mean Corpuscular Hgb Conc. 32.6 g/dL (32.0-36.0); Mean Corpuscular Volume 83.5 fL (80.0-100.0); Monocytes # (auto) 0.8 10 ^3/uL (0-1.3); Neutrophils # (auto) 5.6 10 ^3/uL (1.6-8.6); Neutrophils % (auto) 67.3 % (37.0-80.0); Nucleated Red Blood Cells % 0.2 %; Platelet Count (auto) 105 10^3/uL (140-450); Red Blood Cells 3.29 10^6/uL (4.5-5.90); Red Cell Distribution Width 18.5 % (11.8-14.3); White Blood Cell 8.3 10^3/uL (4.4-10.8)
[2024-07-08 07:51] LABS: Alanine Aminotransferase 20 U/L (7-40); Anion Gap 7 (5-15); Blood Urea Nitrogen 10 mg/dL (9-23); Carbon Dioxide 26 mmol/L (20-31); Potassium 3.5 mmol/L (3.5-5.1); Sodium 145 mmol/L (136-145)
[2024-07-08 07:53] LABS: Aspartate Aminotransferase 24 U/L (13-40)
[2024-07-08 08:00] LABS: Albumin 1.9 g/dL (3.2-4.8); Alkaline Phosphatase 132 U/L (46-116); Bilirubin, Total 1.4 mg/dL (0.2-1.0); Calcium 7.9 mg/dL (8.7-10.4); Chloride 112 mmol/L (98-107); Glucose 110 mg/dL (74-106); Total Protein 4.8 g/dL (5.7-8.2)
--- NOTE | 2024-07-08 16:09 | DVHPN2 ---
Progress Note - Dictate Date Seen: Jul 08, 2024 Has the PT tested + for MRSA If YES, has PT been informed?: No Medical Necessity Reason Pt with a Central, PICC or Fol: No The following are medically ne: Central Line, Olsen Catheter Reason for olsen catheter: Strict I&O Subjective PT WITH SS COMPLEX INCRESEING SOB HARVEY LE EDEMA HFrEF CHRONIC AND ACUTE NOW WITH HEMOPTYSIS TACHYCARDIA CTA LUNG C/W PE ACUTE vital signs Vital Sign Date Time Temp Pulse Resp B/P (MAP) Pulse Ox O2 Delivery O2 Flow Rate FiO2 07/08/24 14:00 96 07/08/24 14:00 20 97 Cool Aerosol 8 30 30 07/08/24 11:30 98.0 98.0 Total Intake and Output 07/07/24 07/07/24 07/08/24 15:00 23:00 07:00 Intake Total 250 ml 500 ml 300 ml Output Total 925 ml 750 ml Balance 250 ml -425 ml -450 ml medications Current Medications Medications Dose Ordered Sig/Amy Route Start Time Stop Time Status Last Admin Dose Admin Potassium Chloride 100 ml @ 50 mls/hr Q2H IV 05/27/24 17:15 05/28/24 01:14 UNV Acetaminophen 650 mg Q6HP PRN PO 05/31/24 19:30 07/05/24 05:13 650 MG Midazolam HCl 50 ml @ 1 mls/hr Q24H IV 06/08/24 20:15 06/27/24 08:50 3 MLS/HR Potassium Chloride 100 ml @ 50 mls/hr Q2H IV 06/13/24 12:45 06/13/24 16:44 UNV Magnesium Sulfate/ Dextrose 100 ml @ 100 mls/hr Q1HR IV 06/13/24 13:00 06/13/24 14:59 UNV Cefepime HCl 50 ml @ 12.5 mls/hr Q8HR IV 06/13/24 14:00 UNV Sodium Chloride 10 ml QSHIFT@10,22 IV 06/17/24 22:00 07/08/24 09:50 10 ML Pantoprazole Sodium 40 mg DAILY IV 06/18/24 10:00 07/08/24 09:49 40 MG Vasopressin 20 units/Sodium Chloride 100 ml @ 9 mls/hr Q11H7M IV 06/21/24 07:45 06/23/24 23:25 9 MLS/HR Enteral Nutritional Formula 1,000 ml 50ML/HR GT 06/25/24 10:30 07/05/24 04:57 1,000 ML Amiodarone HCl 200 mg DAILY PO 06/26/24 13:30 07/08/24 09:50 200 MG Micafungin Sodium 100 mg/Sodium Chloride 100 ml @ 100 mls/hr DAILY IV 06/28/24 10:00 07/08/24 09:49 100 MLS/HR Albuterol 2.5 mg Q6HR NEB 06/29/24 12:40 07/08/24 11:55 2.5 MG Ipratropium [place] 0.5 mg Q6HR NEB 06/29/24 12:41 07/08/24 11:55 0.5 MG Acetylcysteine 200 mg Q6HR NEB 06/29/24 12:41 07/08/24 11:55 200 MG Ceftolozane/ Tazobactam 3 gm/ Dextrose 100 ml @ 33.333 mls/ hr Q8H IV 06/30/24 18:00 07/08/24 10:00 33.333 MLS/HR Fentanyl Citrate 250 ml @ 2.5 mls/hr Q24H IV 07/03/24 06:00 07/03/24 06:00 2.5 MLS/HR Morphine Sulfate 2 mg Q4HPRN PRN IV 07/04/24 13:00 07/08/24 01:13 2 MG Hydralazine HCl 10 mg Q6HP PRN IV 07/04/24 18:30 Alprazolam 0.25 mg TIDPRN PRN PO 07/05/24 14:00 objective PUL DIFF RHONCHI JVD ANGLE OF THE JAW CV RR PMI DIFFUSE EXT 3+ EDEMA laboratory and microbiology Laboratory Tests 07/08/24 04:30 Test 07/08/24 04:30 Range/Units Serum Glucose 110 H 74-106 mg/dL Problem List SS COMPLEX INCRESEING SOB HARVEY LE EDEMA HFrEF CHRONIC AND ACUTE EF < 20% NOW WITH HEMOPTYSIS TACHYCARDIA CTA LUNG C/W PE 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 Large filling defect right pulmonary artery consistent with pulmonary embolus. No film findings of pulmonary artery hypertension. No pulmonary emboli noted on the left. 2. Findings are also suggestive of right heart strain. 3. Large right pleural effusion. HEPARIN DRIP\ LASIX DRIP WILL START ORAL ANTICOAGULATION IN 48 HOURS ABX LE ARTERIAL DOPPLER NO SIGNIFICANT DISEASE FOR LIMB RISK DC HEPARIN START ELIQUIS S/P CT HEAD CURRENTLY ON BiPAP IMPROVING RESP STATUS 7.32/59/69 TITRATE BIPAP THORACENTESIS ULTRASOUND GUIDED MRI OF ABD S/P THORACENTESIS 2200 CC DRAINED CXR BILATERAL INFILTRATE PROMINENT MEDIASTINUM CARDIOMEGALY HYPOKALEMIA BEING CORRECTED A FLUTTER S/P CARDIOVERSION SINUS RHYTHM TITRATE OFF LEVOPHED USE ALBUMIN FOR PRESSURE SPORT DC LASIX DRIP START D5 1/4 NS AT 125 CC/HR BMP/ BNP DAILY cont volume replacement contraction alkalosis leukocytosis improved monitor h/h HYPERNATREMIA IMPROVING DIAMOX X 1 DOSE tracheostomy awake alert increase nutritional supplementy testosterone HYPERNATREMIA CORRECTED DC IV FLUID CONT TPN INCREASE VENT SETTING TO AC 22 EPISODE OF [place] CORRECT ACIDOSIS MAG SO4 2 G TITRATE OFF LEVOPHED DIAMOX TREAT METABOLIC ALKALOSIS RESP ACIDOSIS START TITRATING OFF SEDATION IMPROVED RESP PARAMETERS LIVER ENZYMES STILL ELEVATED wean off sedation CORRECT HYPERNATREMIA CHECK BNP AICD IMPLANTATION PT DEVELOPED PNEUMOTHORAX DELAYING EXTUBATION PNEUMOTHORAX IMPROVED LEUKOCYTOSIS AGAIN ELECTROLYTES BETTER NOW CXR CONSISTENT WITH CHF CORRECT K AND Mg CHANGE ABX VANCO AND AZTREONAM EPOGEN IRON DC ELIQUIS START LOVENOX WBC CONTINUES TO INCREASE NEEDS SURGICAL DEBRIDEMENT OF DECUB CXR WORSENING EFFUSION AND FLUID OVERLOAD START LASIX DRIP CXR CONSISTENT WITH MULTIFOCAL CONSOLIDATION EXCELLENT DIURESIS WITH LASIX DRIP MONITOR FLUID STATUS NEEDS DEBRIDEMENT OF DECUB WITH PERSISTENT LEUKOCYTOSIS CONSIDER BRONCHOSCOPY TO CLEAR CONSOLIDATION/ MUCUS CXR WORSENING LEFT SIDED EFFUSION/ INFILTRATE LEUKOCYTOSIS WORSENING DESPITE WOUND DEBRIDEMENT RECOMMEND BRONCHOSCOPY S/P DEBRIDEMENT OF STAGE IV DECUB WOUND POSITIVE FOR PSEUDOMONAS/ ENTEROCOCCUS URINE YEAST LEUKOCYTOSIS TRENDING DOWN CHECK CXR CHECK BNP CORRECT K PROGRESSIVE ANEMIA NEEDS ANTICOAGULATION FOR PE CONSIDER BRONCHOSCOPY WORSENING WBC IMPROVING WBC SEVERE ANEMIA START IRON WITH EPOGEN METABOLIC ALKALOSIS AGAIN DIAMOX CXR BETTER AERATION ON THE LEFT SIDED ONE DOSE OF IRON GIVEN ONE DOSE OF EPOGEN LEUKOCYTOSIS IMPROVING CHECK UA DIAMOX FOR WORSENING METABOLIC ALKALOSIS DECREASE REP RATE FOR RESP ALKALOSIS IRON STUDY FROM 06/21/24 LOW SERUM IRON LOW TIBC FERRITIN HIGH SECONDARY TO BEING ACUTE PHASE REACTANT S/P TRACHEOSTOMY NOW PT REQUIRES 2 UNITS OF PRBC CHECK UA CBC IN AM BNP IN AM ABG PT AWAKE STILL WITH PNEUMOTHORAX ABG BETTER DC PEEP TRANSFUSE PRBC EPOGEN AND IRON UA TODAY MONITOR MORPHINE SULFATE 2 MG/IV Dietary Evaluation Review Comments: 1. consider Renal Specific 70g protein restriction witn 2GNa, 3K, low Phos, if no diaylsis needed. 2. consider Renal Standard 2gn, 3K, low phosphate diet if Pt is on dialysis. 3. encourage and monitor po intake to meet 75% of his needs. Expected Outcomes/Goals: avoid uremic symptoms, gradual healed wounds. Plan discussed with: Patient ISSAC SHAH MD Jul 08, 2024 16:09
--- NOTE | 2024-07-08 20:37 | DVHPNRES ---
Progress Note Date Seen: Jul 08, 2024 Resident Creating Document: JOSE FRANCISCO GAMINO RESIDENT Has the PT tested + for MRSA If YES, has PT been informed?: No Medical Necessity Reason Pt with a Central, PICC or Fol: No The following are medically ne: Central Line, Olsen Catheter Reason for olsen catheter: Strict I&O Objective vital signs Vital Sign Date Time Temp Pulse Resp B/P (MAP) Pulse Ox O2 Delivery O2 Flow Rate FiO2 07/08/24 20:00 20 97 Cool Aerosol 8 30 30 07/08/24 19:00 76 108/53 (71) 07/08/24 16:00 97.6 97.6 Total Intake and Output 07/07/24 07/07/24 07/08/24 15:00 23:00 07:00 Intake Total 250 ml 500 ml 300 ml Output Total 925 ml 750 ml Balance 250 ml -425 ml -450 ml medications Current Medications Medications Dose Ordered Sig/Amy Route Start Time Stop Time Status Last Admin Dose Admin Potassium Chloride 100 ml @ 50 mls/hr Q2H IV 05/27/24 17:15 05/28/24 01:14 UNV Acetaminophen 650 mg Q6HP PRN PO 05/31/24 19:30 07/05/24 05:13 650 MG Midazolam HCl 50 ml @ 1 mls/hr Q24H IV 06/08/24 20:15 06/27/24 08:50 3 MLS/HR Potassium Chloride 100 ml @ 50 mls/hr Q2H IV 06/13/24 12:45 06/13/24 16:44 UNV Magnesium Sulfate/ Dextrose 100 ml @ 100 mls/hr Q1HR IV 06/13/24 13:00 06/13/24 14:59 UNV Cefepime HCl 50 ml @ 12.5 mls/hr Q8HR IV 06/13/24 14:00 UNV Sodium Chloride 10 ml QSHIFT@10,22 IV 06/17/24 22:00 07/08/24 09:50 10 ML Pantoprazole Sodium 40 mg DAILY IV 06/18/24 10:00 07/08/24 09:49 40 MG Vasopressin 20 units/Sodium Chloride 100 ml @ 9 mls/hr Q11H7M IV 06/21/24 07:45 06/23/24 23:25 9 MLS/HR Enteral Nutritional Formula 1,000 ml 50ML/HR GT 2/4/25 10:30 07/05/24 04:57 1,000 ML Amiodarone HCl 200 mg DAILY PO 06/26/24 13:30 07/08/24 09:50 200 MG Albuterol 2.5 mg Q6HR NEB 06/29/24 12:40 07/08/24 18:30 2.5 MG Ipratropium [place] 0.5 mg Q6HR NEB 06/29/24 12:41 07/08/24 18:30 0.5 MG Acetylcysteine 200 mg Q6HR NEB 06/29/24 12:41 07/08/24 18:30 200 MG Ceftolozane/ Tazobactam 3 gm/ Dextrose 100 ml @ 33.333 mls/ hr Q8H IV 06/30/24 18:00 07/08/24 18:00 33.333 MLS/HR Fentanyl Citrate 250 ml @ 2.5 mls/hr Q24H IV 07/03/24 06:00 07/03/24 06:00 2.5 MLS/HR Morphine Sulfate 2 mg Q4HPRN PRN IV 07/04/24 13:00 07/08/24 01:13 2 MG Hydralazine HCl 10 mg Q6HP PRN IV 07/04/24 18:30 Alprazolam 0.25 mg TIDPRN PRN PO 07/05/24 14:00 Examination General Appearance: Overall comfortable , overall weak but improved health. HEENT: Atraumatic Neck: Other (tracheostomy) healthy tracheostomy own. Lungs: Other (MV sounds) Chest/Breasts: Other (one right-sided chest tubes; and one left-sided chest tube) Cardiovascular: Regular rate, Normal S1, Normal S2 Abdomen: Normal bowel sounds, Soft Genitourinary: Other (Olsen's) Neuro: while patient is alert, conversant, able to respond to verbal and pain stimuli, week vocals gradually getting better. Psych/Mental Status: Alert, appropriate affect laboratory and microbiology Laboratory Tests 07/08/24 04:30 Test 07/08/24 04:30 Range/Units Serum Glucose 110 H 74-106 mg/dL Microbiology Date/Time Source Procedure Growth Status 06/29/24 18:08 Bronchial Washings Gram Stain - Final Complete 06/29/24 18:08 Respiratory Culture - Final Pseudomonas aeruginosa Complete 06/28/24 10:30 Chest Gram Stain - Final Complete 06/28/24 10:30 Chest Anaerobic Culture - Final Complete 06/28/24 10:30 Aerobic Culture - Final Pseudomonas aeruginosa Complete 06/25/24 14:45 Pleural Fluid Gram Stain - Final Complete 06/25/24 14:45 Body Fluid Culture - Final Pseudomonas aeruginosa Complete 06/25/24 06:40 Urine - Olsen [place] Urine Culture - Final Yeast, not Radha albicans Complete 06/24/24 20:21 Blood Blood Culture - Final NO GROWTH AFTER 5 DAYS OF INCUBATION. Complete Labs and/or images reviewed: Labs reviewed by me, Image(s) reviewed by me Problem List/Assessment/Plan Problem List/Assessment/Plan ICU Course: A 63-year-old male with a history of heart failure with reduced ejection fraction 20%, severe mitral regurgitation, dilated aortic root of 4.9 cm, moderate pulmonary arterial hypertension, pulmonary embolism, congestive heart failure (CHF) and pulmonary embolism was intubated in the ICU. He developed necrotic pressure ulcers and multiorgan failure, large right pleural effusion, right heart strain, right pulmonary artery embolus, leading to a tracheostomy. A chest tube was placed, and a chest CT was performed. Due to low blood pressure, he required Levophed. Initially was on BiPAP, eventually needed intubation, status post trach, now on minimal vent settings. tolerating well x5 days. Patient is much more awake alert and conversant. Voice more stronger and patient passed swallow eval. Hospitalization day: 46 A. Neurology: #Acute metabolic/toxic encephalopathy in the setting of septic shock, improved. 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 Cardiology: # Acute on chronic systolic CHF # heart failure with reduced ejection fraction: Ejection fraction of 20%: 2 g salt restriction, careful fluid management # mild AV calcification # severe mitral regurgitation # dilated aortic root 4.9 cm # Atrial flutter, currently sinus rhythm: had sync cardioversion on 05/27/24 # Non-sustained Vtach, subsided keep the patient on telemetry C. Respiratory: #Acute hypoxic respiratory failure due to Pseudomonas aeruginosa pneumonia, pleural effusions, and pulmonary embolism: on [facility], intubated on 05/26/24, reintubation on 06/12/24 due to ETT leak, extubated 06/26/24, tracheostomy tube placed 06/26/24, trach collar trials started on 07/02/2024: next day satisfactory, so will successful full day trach collar>>> we will try 24 hour trach #Septic shock due to Pseudomonas aeruginosa pneumonia: Status post IV antibiotics, recheck sputum/secretion from tracheostomy tube, to rule out any residual infection. #Pleural effusions s/p three chest tubes (two on the right; one on the left) right chest tube out, no changes in respiratory status. cxr unremarkable. CT chest satisfactory. Surgical team and pulmonology updated. Repeat CXR tomorrow to rule out interval changes. #moderate pulmonary arterial hypertension #large right pulmonary artery embolus #right hydro pneumothorax with right chest tube in-situ. #Moderate left pleural effusion. 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 Olivas/surgery team on board, repeat CT chest shows subcutaneous emphysema no surgical intervention. #Large right pleural effusion: s/p multiple thoracentesis, pt has currently 2 chest tubes & last CT 06/16/24 shows Moderate right pleural fluid collection with near complete collapse of the right lower lobe chest tube in place within the collection. #Right lower lobe atelectasis, mildly improved #Multiple mucus plugs status post multiple bronchoscopies #Pneumonia, community acquired, gram +/-, possible superseded fungal infection: Micafungin for infection #pneumomediastinum, hemodynamically stable #Increased left pneumothorax despite the presence of a left chest tube: Continues to have air leak at -30 of air seal D. Gastrointestinal: # Transaminitis likely due to sepsis: Improving # Moderate colonic diverticulosis: Without signs of diverticulitis. # Cholelithiasis, without cholecystitis. # nutrition: Glucerna # constipation: On Colace # Swallow eval passed> nutrition started on oral pureed diet. aspiration precautions to continue. # nutrition: Pureed diet, cardiologic modification along with salt restriction and nutrition supplement to continue E. Genitourinary: Uncomplicated presumably F. Infectious Disease: # complicated UTI: urine culture reveals Pseudomonas and Enterococcus, appropriately on antibiotics asymptomatic presumably # shock, likely cardiogenic/septic: Negative for hepatitis-B, hepatitis-C, HIV, # Sacral Wound, Unstageable: Status post wound debridement wound care to continue patient on -125 cc of wound VAC in past 24 hour approximately 200 mL of collection likely we will need long-term wound VAC support. Appreciate input of wound care team # respiratory Pseudomonas infection: Status post Zerbaxa pending repeat respiratory Pseudomonas culture to determine fate of further IV antibiotics. G. Hematology & Oncology: # anemia, normocytic, severe: s/p 1 unit of PRBC transfusion, H&H stable # coagulopathy likely due to sepsis, no active bleeding noted presumably. H. Nephrology: renal function satisfactory: Urine output appropriate # Hypernatremia, corrected # Hyperkalemia, corrected # hypokalemia , Corrected # RADHA likely due to vasomotor nephropathy, improved monitor BMP closely # metabolic alkalosis with respiratory alkalosis, improved # hypophosphatemia, corrected I. Endocrine: # prediabetic with HbA1c of 6.1 J. MSK: # ICU myopathy: Low muscle mass extremely weak, we will need probably extensive physical therapy and support. K. Prophylaxis: PPI: Pantoprazole DVT: SCDs L. Lines & Drains (with insertion date): PICC line 06/17/24 Left subclavian CVC line 06/05/24, removed 06/17/24 Right femoral A-line 06/03/24, discontinued 06/24/2024 Olsen catheter 05/21/24 right Arterial line 06/26/23 N. Disposition: Remains in [facility], Advance discharge planning with wound vac with social work started. SW consulted input appreciate. O. Vent Settings: off on trach collar trial daily x 5 days/ Pressor support at night> we will try 24 hour trach collar trial. Advance placement planning for LTAC if patient remains hemodynamically stable afterwards. The plan was discussed with the ICU attending Dr. Clayton. The patient care consists of total 69 minutes of critical care time excluding the procedures. Dictated by Jose Francisco Gamino MD with 3M MModal Fluency. Plan discussed with: Patient, Other (Primary team) My Orders My Orders Orders - JOSE FRANCISCO GAMINO RESIDENT Procedure Category Date Status Time Chest Portable XY 07/09/24 Logged 04:00 Respiratory Culture LOWELL 07/08/24 Logged W/ Gs 19:38 Dietary Evaluation Review Comments: 1. consider Renal Specific 70g protein restriction witn 2GNa, 3K, low Phos, if no diaylsis needed. 2. consider Renal Standard 2gn, 3K, low phosphate diet if Pt is on dialysis. 3. encourage and monitor po intake to meet 75% of his needs. Expected Outcomes/Goals: avoid uremic symptoms, gradual healed wounds. Date of Service: Jul 08, 2024 Billing Provider: TIFFANY CLAYTON MD Common Visit Codes: [id number] CARE 30-74 MIN JOSE FRANCISCO GAMINO RESIDENT Jul 08, 2024 20:37 TIFFANY CLAYTON MD Jul 09, 2024 15:24
[2024-07-09] VITALS (49 sets, daily range): BP systolic 94–110; BP diastolic 40–63; PULSE 73–98; RESP 8–28; TEMP 97.2–98.3; O2SAT 93–100
--- NOTE | 2024-07-09 05:07 | DVH ---
EXAM: XR Chest, 1 View CLINICAL INDICATION: interval change in the right hemipulm TECHNIQUE: Frontal view of the chest. COMPARISON: XY CHEST PORTABLE on DOS: 07/05/24, XY CHEST PORTABLE on DOS: 07/05/24, XY CHEST PORTABLE on DOS: 07/04/24, XY CHEST PORTABLE on DOS: 07/03/24, XY CHEST PORTABLE on DOS: 07/02/24 FINDINGS: LUNGS AND PLEURAL SPACES: Increasing left pneumothorax. HEART: Cardiomegaly with mild congestion. MEDIASTINUM: Unremarkable. Normal mediastinal contour. BONES/JOINTS: Unremarkable. No acute fracture. TUBES, LINES AND DEVICES: Stable tubes and lines. OTHER FINDINGS: . None. IMPRESSION: 1. Increasing left pneumothorax. 2. Cardiomegaly with mild congestion.
[2024-07-09] MEDS ORDERED: HYDROcodone-ACET 5/325MG TAB PO PRN (12:15)
[2024-07-09] MEDS: HYDROcodone-ACET 5/325MG TAB PO PRN (13:31)
--- NOTE | 2024-07-09 14:24 | DVHPN2 ---
Progress Note - Dictate Date Seen: Jul 09, 2024 Has the PT tested + for MRSA If YES, has PT been informed?: No Medical Necessity Reason Pt with a Central, PICC or Fol: No The following are medically ne: Central Line, Olsen Catheter Reason for olsen catheter: Strict I&O Subjective PT WITH SS COMPLEX INCRESEING SOB HARVEY LE EDEMA HFrEF CHRONIC AND ACUTE NOW WITH HEMOPTYSIS TACHYCARDIA CTA LUNG C/W PE ACUTE vital signs Vital Sign Date Time Temp Pulse Resp B/P (MAP) Pulse Ox O2 Delivery O2 Flow Rate FiO2 07/09/24 11:55 83 25 100 07/09/24 11:45 Nasal Cannula 2.0 07/09/24 11:45 28 07/09/24 11:45 98.3 98.3 Total Intake and Output 07/08/24 07/08/24 07/09/24 15:00 23:00 07:00 Intake Total 199.996 ml 299.999 ml 200 ml Output Total 550 ml 420 ml Balance 199.996 ml -250.001 ml -220 ml medications Current Medications Medications Dose Ordered Sig/Amy Route Start Time Stop Time Status Last Admin Dose Admin Potassium Chloride 100 ml @ 50 mls/hr Q2H IV 05/27/24 17:15 05/28/24 01:14 UNV Acetaminophen 650 mg Q6HP PRN PO 05/31/24 19:30 07/05/24 05:13 650 MG Potassium Chloride 100 ml @ 50 mls/hr Q2H IV 06/13/24 12:45 06/13/24 16:44 UNV Magnesium Sulfate/ Dextrose 100 ml @ 100 mls/hr Q1HR IV 06/13/24 13:00 06/13/24 14:59 UNV Cefepime HCl 50 ml @ 12.5 mls/hr Q8HR IV 06/13/24 14:00 UNV Sodium Chloride 10 ml QSHIFT@10,22 IV 06/17/24 22:00 07/09/24 09:56 10 ML Pantoprazole Sodium 40 mg DAILY IV 06/18/24 10:00 07/09/24 09:56 40 MG Enteral Nutritional Formula 1,000 ml 50ML/HR GT 06/25/24 10:30 07/05/24 04:57 1,000 ML Amiodarone HCl 200 mg DAILY PO 06/26/24 13:30 07/09/24 09:56 200 MG Albuterol 2.5 mg Q6HR NEB 06/29/24 12:40 07/09/24 11:44 2.5 MG Ipratropium [place] 0.5 mg Q6HR NEB 06/29/24 12:41 07/09/24 11:45 0.5 MG Acetylcysteine 200 mg Q6HR NEB 06/29/24 12:41 07/09/24 11:44 200 MG Morphine Sulfate 2 mg Q4HPRN PRN IV 07/04/24 13:00 07/08/24 01:13 2 MG Hydralazine HCl 10 mg Q6HP PRN IV 07/04/24 18:30 Alprazolam 0.25 mg TIDPRN PRN PO 07/05/24 14:00 Acetaminophen/ Hydrocodone [place]art 2 tab Q6HPRN PRN PO 07/09/24 12:15 UNV Acetaminophen/ Hydrocodone Bitart 1 tab Q6HPRN PRN PO 07/09/24 13:00 07/09/24 13:31 1 TAB objective PUL DIFF RHONCHI JVD ANGLE OF THE JAW CV RR PMI DIFFUSE EXT 3+ EDEMA laboratory and microbiology Laboratory Tests 07/08/24 04:30 Test 07/08/24 04:30 Range/Units Serum Glucose 110 H 74-106 mg/dL Problem List SS COMPLEX INCRESEING SOB HARVEY LE EDEMA HFrEF CHRONIC AND ACUTE EF < 20% NOW WITH HEMOPTYSIS TACHYCARDIA CTA LUNG C/W PE 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 Large filling defect right pulmonary artery consistent with pulmonary embolus. No film findings of pulmonary artery hypertension. No pulmonary emboli noted on the left. 2. Findings are also suggestive of right heart strain. 3. Large right pleural effusion. HEPARIN DRIP\ LASIX DRIP WILL START ORAL ANTICOAGULATION IN 48 HOURS ABX LE ARTERIAL DOPPLER NO SIGNIFICANT DISEASE FOR LIMB RISK DC HEPARIN START ELIQUIS S/P CT HEAD CURRENTLY ON BiPAP IMPROVING RESP STATUS 7.32/59/69 TITRATE BIPAP THORACENTESIS ULTRASOUND GUIDED MRI OF ABD S/P THORACENTESIS 2200 CC DRAINED CXR BILATERAL INFILTRATE PROMINENT MEDIASTINUM CARDIOMEGALY HYPOKALEMIA BEING CORRECTED A FLUTTER S/P CARDIOVERSION SINUS RHYTHM TITRATE OFF LEVOPHED USE ALBUMIN FOR PRESSURE SPORT DC LASIX DRIP START D5 1/4 NS AT 125 CC/HR BMP/ BNP DAILY cont volume replacement contraction alkalosis leukocytosis improved monitor h/h HYPERNATREMIA IMPROVING DIAMOX X 1 DOSE tracheostomy awake alert increase nutritional supplementy testosterone HYPERNATREMIA CORRECTED DC IV FLUID CONT TPN INCREASE VENT SETTING TO AC 22 EPISODE OF [place] CORRECT ACIDOSIS MAG SO4 2 G TITRATE OFF LEVOPHED DIAMOX TREAT METABOLIC ALKALOSIS RESP ACIDOSIS START TITRATING OFF SEDATION IMPROVED RESP PARAMETERS LIVER ENZYMES STILL ELEVATED wean off sedation CORRECT HYPERNATREMIA CHECK BNP AICD IMPLANTATION PT DEVELOPED PNEUMOTHORAX DELAYING EXTUBATION PNEUMOTHORAX IMPROVED LEUKOCYTOSIS AGAIN ELECTROLYTES BETTER NOW CXR CONSISTENT WITH CHF CORRECT K AND Mg CHANGE ABX VANCO AND AZTREONAM EPOGEN IRON DC ELIQUIS START LOVENOX WBC CONTINUES TO INCREASE NEEDS SURGICAL DEBRIDEMENT OF DECUB CXR WORSENING EFFUSION AND FLUID OVERLOAD START LASIX DRIP CXR CONSISTENT WITH MULTIFOCAL CONSOLIDATION EXCELLENT DIURESIS WITH LASIX DRIP MONITOR FLUID STATUS NEEDS DEBRIDEMENT OF DECUB WITH PERSISTENT LEUKOCYTOSIS CONSIDER BRONCHOSCOPY TO CLEAR CONSOLIDATION/ MUCUS CXR WORSENING LEFT SIDED EFFUSION/ INFILTRATE LEUKOCYTOSIS WORSENING DESPITE WOUND DEBRIDEMENT RECOMMEND BRONCHOSCOPY S/P DEBRIDEMENT OF STAGE IV DECUB WOUND POSITIVE FOR PSEUDOMONAS/ ENTEROCOCCUS URINE YEAST LEUKOCYTOSIS TRENDING DOWN CHECK CXR CHECK BNP CORRECT K PROGRESSIVE ANEMIA NEEDS ANTICOAGULATION FOR PE CONSIDER BRONCHOSCOPY WORSENING WBC IMPROVING WBC SEVERE ANEMIA START IRON WITH EPOGEN METABOLIC ALKALOSIS AGAIN DIAMOX CXR BETTER AERATION ON THE LEFT SIDED ONE DOSE OF IRON GIVEN ONE DOSE OF EPOGEN LEUKOCYTOSIS IMPROVING CHECK UA DIAMOX FOR WORSENING METABOLIC ALKALOSIS DECREASE REP RATE FOR RESP ALKALOSIS IRON STUDY FROM 06/21/24 LOW SERUM IRON LOW TIBC FERRITIN HIGH SECONDARY TO BEING ACUTE PHASE REACTANT S/P TRACHEOSTOMY NOW PT REQUIRES 2 UNITS OF PRBC CHECK UA CBC IN AM BNP IN AM ABG PT AWAKE STILL WITH PNEUMOTHORAX ABG BETTER DC PEEP TRANSFUSE PRBC EPOGEN AND IRON UA TODAY Dietary Evaluation Review Comments: 1. consider Renal Specific 70g protein restriction witn 2GNa, 3K, low Phos, if no diaylsis needed. 2. consider Renal Standard 2gn, 3K, low phosphate diet if Pt is on dialysis. 3. encourage and monitor po intake to meet 75% of his needs. Expected Outcomes/Goals: avoid uremic symptoms, gradual healed wounds. Plan discussed with: Patient Critical Care Time(min): 35 ISSAC SHAH MD Jul 09, 2024 14:24
[2024-07-09 15:44] LABS: Basophils # (auto) 0.1 10 ^3/uL (0-0.2); Eosinophils # (auto) 0.2 10 ^3/uL (0-0.8); Eosinophils % (auto) 3.3 % (0.0-7.0); Hematocrit 30.8 % (41.0-53.0); Hemoglobin 9.9 g/dL (13.5-17.5); Lymphocytes # (auto) 1.9 10 ^3/uL (0.4-5.4); Lymphocytes % (auto) 28.3 % (10.0-50.0); Mean Corpuscular Hemoglobin 29.1 pg (28.0-32.0); Mean Corpuscular Hgb Conc. 32.2 g/dL (32.0-36.0); Mean Corpuscular Volume 90.3 fL (80.0-100.0); Monocytes # (auto) 0.7 10 ^3/uL (0-1.3); Monocytes % (auto) 10.3 % (0.0-12.0); Neutrophils # (auto) 3.9 10 ^3/uL (1.6-8.6); Neutrophils % (auto) 57.1 % (37.0-80.0); Nucleated Red Blood Cells % 0.2 %; Platelet Count (auto) 184 10^3/uL (140-450); Red Blood Cells 3.41 10^6/uL (4.5-5.90); Red Cell Distribution Width 18.5 % (11.8-14.3); White Blood Cell 6.8 10^3/uL (4.4-10.8)
[2024-07-09 16:20] LABS: Alanine Aminotransferase 18 U/L (7-40); Anion Gap 5 (5-15); Aspartate Aminotransferase 25 U/L (13-40); BUN/Creatinine Ratio 20.8 (10.0-20.0); Blood Urea Nitrogen 10 mg/dL (9-23); Carbon Dioxide 25 mmol/L (20-31); Potassium 3.6 mmol/L (3.5-5.1); Sodium 142 mmol/L (136-145)
[2024-07-09 16:23] LABS: Albumin 1.9 g/dL (3.2-4.8); Alkaline Phosphatase 135 U/L (46-116); Bilirubin, Total 1.4 mg/dL (0.2-1.0); Calcium 7.9 mg/dL (8.7-10.4); Chloride 112 mmol/L (98-107); Glucose 132 mg/dL (74-106)
[2024-07-09] MEDS: POTASSIUM EFFERVESENT TAB 25 MEQ PO ONE (18:50)
[2024-07-09] MEDS: Ensure HIGH Protein Chocolate 8oz Bottle PO SCH (18:51)
[2024-07-09] MEDS: FUROSEMIDE 20 MG TAB PO ONE (18:51)
--- NOTE | 2024-07-09 21:03 | DVHPNRES ---
Progress Note Date Seen: Jul 09, 2024 Resident Creating Document: JOSE FRANCISCO GAMINO RESIDENT Has the PT tested + for MRSA If YES, has PT been informed?: No Medical Necessity Reason Pt with a Central, PICC or Fol: No The following are medically ne: Central Line, Olsen Catheter Reason for olsen catheter: Strict I&O Subjective Review of Systems Saw the patient at bedside, oral patient is stable, more eager to morbidity but yet high-risk of fall. Objective vital signs Vital Sign Date Time Temp Pulse Resp B/P (MAP) Pulse Ox O2 Delivery O2 Flow Rate FiO2 07/09/24 20:00 12 100 Cool Aerosol 8 30 30 07/09/24 20:00 85 07/09/24 20:00 97.5 105/52 (69) 97.5 Total Intake and Output 07/08/24 07/08/24 07/09/24 15:00 23:00 07:00 Intake Total 199.996 ml 299.999 ml 200 ml Output Total 550 ml 420 ml Balance 199.996 ml -250.001 ml -220 ml medications Current Medications Medications Dose Ordered Sig/Amy Route Start Time Stop Time Status Last Admin Dose Admin Potassium Chloride 100 ml @ 50 mls/hr Q2H IV 05/27/24 17:15 05/28/24 01:14 UNV Acetaminophen 650 mg Q6HP PRN PO 05/31/24 19:30 07/05/24 05:13 650 MG Potassium Chloride 100 ml @ 50 mls/hr Q2H IV 06/13/24 12:45 06/13/24 16:44 UNV Magnesium Sulfate/ Dextrose 100 ml @ 100 mls/hr Q1HR IV 06/13/24 13:00 06/13/24 14:59 UNV Cefepime HCl 50 ml @ 12.5 mls/hr Q8HR IV 06/13/24 14:00 UNV Sodium Chloride 10 ml QSHIFT@10,22 IV 06/17/24 22:00 07/09/24 09:56 10 ML Pantoprazole Sodium 40 mg DAILY IV 06/18/24 10:00 07/09/24 09:56 40 MG Amiodarone HCl 200 mg DAILY PO 06/26/24 13:30 07/09/24 09:56 200 MG Albuterol 2.5 mg Q6HR NEB 06/29/24 12:40 07/09/24 18:35 2.5 MG Ipratropium [place] 0.5 mg Q6HR NEB 06/29/24 12:41 07/09/24 18:35 0.5 MG Acetylcysteine 200 mg Q6HR NEB 06/29/24 12:41 07/09/24 18:35 200 MG Morphine Sulfate 2 mg Q4HPRN PRN IV 07/04/24 13:00 07/08/24 01:13 2 MG Hydralazine HCl 10 mg Q6HP PRN IV 07/04/24 18:30 Alprazolam 0.25 mg TIDPRN PRN PO 07/05/24 14:00 Acetaminophen/ Hydrocodone Bitart 2 tab Q6HPRN PRN PO 07/09/24 12:15 UNV Acetaminophen/ Hydrocodone Bitart 1 tab Q6HPRN PRN PO 07/09/24 13:00 07/09/24 13:31 1 TAB Enteral Nutritional Formula 240 ml TIDWM PO 07/09/24 18:00 07/09/24 18:51 240 ML Furosemide 20 mg DAILY PO 07/10/24 10:00 Potassium Bicarbonate 25 meq DAILY PO 07/10/24 10:00 Examination General Appearance: Overall comfortable , overall weak but improved health. HEENT: Atraumatic Neck: Other (tracheostomy) healthy tracheostomy own. Lungs: Other (MV sounds) Chest/Breasts: Other (one right-sided chest tubes; and one left-sided chest tube) Cardiovascular: Regular rate, Normal S1, Normal S2 Abdomen: Normal bowel sounds, Soft Genitourinary: Other (Olsen's) Neuro: while patient is alert, conversant, able to respond to verbal and pain stimuli, week vocals gradually getting better. Psych/Mental Status: Alert, appropriate affect laboratory and microbiology Laboratory Tests 07/09/24 15:10 Test 07/09/24 15:10 Range/Units Serum Glucose 132 H 74-106 mg/dL Microbiology Date/Time Source Procedure Growth Status 06/29/24 18:08 Bronchial Washings Gram Stain - Final Complete 06/29/24 18:08 Respiratory Culture - Final Pseudomonas aeruginosa Complete 06/28/24 10:30 Chest Gram Stain - Final Complete 06/28/24 10:30 Chest Anaerobic Culture - Final Complete 06/28/24 10:30 Aerobic Culture - Final Pseudomonas aeruginosa Complete 06/25/24 14:45 Pleural Fluid Gram Stain - Final Complete 06/25/24 14:45 Body Fluid Culture - Final Pseudomonas aeruginosa Complete 06/25/24 06:40 Urine - [place] Urine Culture - Final Yeast, not Radha albicans Complete 06/24/24 20:21 Blood Blood Culture - Final NO GROWTH AFTER 5 DAYS OF INCUBATION. Complete Labs and/or images reviewed: Labs reviewed by me, Image(s) reviewed by me Problem List/Assessment/Plan Problem List/Assessment/Plan ICU Course: A 63-year-old male with a history of heart failure with reduced ejection fraction 20%, severe mitral regurgitation, dilated aortic root of 4.9 cm, moderate pulmonary arterial hypertension, pulmonary embolism, congestive heart failure (CHF) and pulmonary embolism was intubated in the ICU. He developed necrotic pressure ulcers and multiorgan failure, large right pleural effusion, right heart strain, right pulmonary artery embolus, leading to a tracheostomy. A chest tube was placed, and a chest CT was performed. Due to low blood pressure, he required Levophed. Initially was on BiPAP, eventually needed intubation, status post trach, now on minimal vent settings. tolerating well x5 days. Patient is much more awake alert and conversant. Voice more stronger and patient passed swallow eval advanced diet from pureed to mechanical soft, added ensure t.i.d., started physical therapy and we will try to start right chest tube weaning trial. Hospitalization day: 47 A. Neurology: #Acute metabolic/toxic encephalopathy in the setting of septic shock, improved. 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 Cardiology: # Acute on chronic systolic CHF # heart failure with reduced ejection fraction: Ejection fraction of 20%: 2 g salt restriction, careful fluid management # mild AV calcification # severe mitral regurgitation # dilated aortic root 4.9 cm # Atrial flutter, currently sinus rhythm: had sync cardioversion on 05/27/24 # Non-sustained Vtach, subsided keep the patient on telemetry C. Respiratory: #Acute hypoxic respiratory failure due to Pseudomonas aeruginosa pneumonia, pleural effusions, and pulmonary embolism: on [facility] vent, intubated on 05/26/24, reintubation on 06/12/24 due to ETT leak, extubated 06/26/24, tracheostomy tube placed 06/26/24, trach collar trials started on 07/02/2024: next day satisfactory, so will successful full day trach collar>>> we will try 24 hour trach, tolerating well, we will try to wait till the trach matures. #Septic shock due to Pseudomonas aeruginosa pneumonia: Status post IV antibiotics, recheck sputum/secretion from tracheostomy tube, to rule out any residual infection. #Pleural effusions s/p three chest tubes (two on the right; one on the left) right chest tube out, no changes in respiratory status. cxr unremarkable. CT chest satisfactory. Surgical team and pulmonology updated. Repeat CXR tomorrow to rule out interval changes. #moderate pulmonary arterial hypertension #large right pulmonary artery embolus #right hydro pneumothorax with right chest tube in-situ. #Moderate left pleural effusion. 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 Olivas/surgery team on board, repeat CT chest shows subcutaneous emphysema no surgical intervention. #Large right pleural effusion: s/p multiple thoracentesis, pt has currently 2 chest tubes & last CT 06/16/24 shows Moderate right pleural fluid collection with near complete collapse of the right lower lobe chest tube in place within the collection. #Right lower lobe atelectasis, mildly improved #Multiple mucus plugs status post multiple bronchoscopies #Pneumonia, community acquired, gram +/-, possible superseded fungal infection: Micafungin for infection #pneumomediastinum, hemodynamically stable #Increased left pneumothorax despite the presence of a left chest tube: Continues to have air leak at -30 of air seal, patient is hemodynamically stable, still continues to have subcutaneous emphysema. No possible solution except surgical management when patient is able to undergo surgical decortication. D. Gastrointestinal: # Transaminitis likely due to sepsis: Improving # Moderate colonic diverticulosis: Without signs of diverticulitis. # Cholelithiasis, without cholecystitis. # nutrition: Glucerna # constipation: On Colace # Swallow eval passed> nutrition started on oral pureed diet. aspiration precautions to continue. # nutrition: Pureed diet, cardiologic modification along with salt restriction, change to we will mechanical soft with high-protein diet, ensure t.i.d. # moderate malnutrition: Dietary consult, continue supplements. E. Genitourinary: Uncomplicated presumably F. Infectious Disease: # complicated UTI: urine culture reveals Pseudomonas and Enterococcus, appropriately on antibiotics asymptomatic presumably # shock, likely cardiogenic/septic: Negative for hepatitis-B, hepatitis-C, HIV, # Sacral Wound, Unstageable: Status post wound debridement wound care to continue patient on -125 cc of wound VAC in past 24 hour approximately 200 mL of collection likely we will need long-term wound VAC support. Appreciate input of wound care team # respiratory Pseudomonas infection: Status post Zerbaxa pending repeat respiratory Pseudomonas culture to determine fate of further IV antibiotics. G. Hematology & Oncology: # anemia, normocytic, severe: s/p 1 unit of PRBC transfusion, H&H stable # coagulopathy likely due to sepsis, no active bleeding noted presumably. # thrombocytopenia: Improved H. Nephrology: renal function satisfactory: Urine output appropriate # Hypernatremia, corrected # Hyperkalemia, corrected # hypokalemia , Corrected # RADHA likely due to vasomotor nephropathy, improved monitor BMP closely # metabolic alkalosis with respiratory alkalosis, improved # hypophosphatemia, corrected I. Endocrine: # prediabetic with HbA1c of 6.1 J. MSK: # ICU myopathy: Low muscle mass extremely weak, we will need probably extensive physical therapy and support. Start aggressive in-hospital physiotherapy, PT consulted. Appreciate input. We will look for any further modification or discharge planning to LTAC. Fall precautions in place. K. Prophylaxis: PPI: Pantoprazole DVT: SCDs L. Lines & Drains (with insertion date): PICC line 06/17/24 Left subclavian CVC line 06/05/24, removed 06/17/24 Right femoral A-line 06/03/24, discontinued 06/24/2024 Olsen catheter 05/21/24 right Arterial line 06/26/23 N. Disposition: Remains in [facility], Advance discharge planning with wound vac with social work started. SW consulted input appreciate. O. Vent Settings: off on trach collar trial daily x 5 days/ Pressor support at night> we will try 24 hour trach collar trial. Advance placement planning for LTAC if patient remains hemodynamically stable afterwards. The plan was discussed with the ICU attending Dr. Clayton. The patient care consists of total 67 minutes of critical care time excluding the procedures. Dictated by Jose Francisco Gamino MD with 3M MModal Fluency. Plan discussed with: Patient, Other My Orders My Orders Orders - JOSE FRANCISCO GAMINO Procedure Category Date Status Time Pt Request For Service PT 07/09/24 Logged 12:09 Hydrocodone-Acet PHA 07/09/24 In Process 5/325mg Tab ([place] 13:00 Mechanical Soft Diet DIET 07/09/24 Transmitted Dinner Chest Portable XY 07/10/24 Logged 04:00 Dietary Evaluation Review Comments: 1. consider Renal Specific 70g protein restriction witn 2GNa, 3K, low Phos, if no diaylsis needed. 2. consider Renal Standard 2gn, 3K, low phosphate diet if Pt is on dialysis. 3. encourage and monitor po intake to meet 75% of his needs. Expected Outcomes/Goals: avoid uremic symptoms, gradual healed wounds. Date of Service: Jul 09, 2024 Billing Provider: TIFFANY CLAYTON MD Common Visit Codes: [id number] CARE 30-74 MIN JOSE FRANCISCO GAMINO Jul 09, 2024 21:03 TIFFANY CLAYTON MD Jul 10, 2024 15:40
--- NOTE | 2024-07-09 22:42 | DVHPN2 ---
Progress Note - Surgical Date Seen: Jul 09, 2024 Post op day Post op day: 13 Subjective Review of Systems: Not Done Objective Vital signs Vital Sign Date Time Temp Pulse Resp B/P (MAP) Pulse Ox O2 Delivery O2 Flow Rate FiO2 07/09/24 22:00 89 07/09/24 22:00 24 106/51 (69) 99 07/09/24 22:00 Nasal Cannula* 3 N/A Cool Aerosol 07/09/24 20:00 97.5 97.5 Total Intake and Output 07/08/24 07/08/24 07/09/24 15:00 23:00 07:00 Intake Total 199.996 ml 299.999 ml 200 ml Output Total 550 ml 420 ml Balance 199.996 ml -250.001 ml -220 ml Medications Current Medications Medications Dose Ordered Sig/Amy Route Start Time Stop Time Status Last Admin Dose Admin Potassium Chloride 100 ml @ 50 mls/hr Q2H IV 05/27/24 17:15 05/28/24 01:14 UNV Acetaminophen 650 mg Q6HP PRN PO 05/31/24 19:30 07/05/24 05:13 650 MG Potassium Chloride 100 ml @ 50 mls/hr Q2H IV 06/13/24 12:45 06/13/24 16:44 UNV Magnesium Sulfate/ Dextrose 100 ml @ 100 mls/hr Q1HR IV 06/13/24 13:00 06/13/24 14:59 UNV Cefepime HCl 50 ml @ 12.5 mls/hr Q8HR IV 06/13/24 14:00 UNV Sodium Chloride 10 ml QSHIFT@10,22 IV 06/17/24 22:00 07/09/24 09:56 10 ML Pantoprazole Sodium 40 mg DAILY IV 06/18/24 10:00 07/09/24 09:56 40 MG Amiodarone HCl 200 mg DAILY PO 06/26/24 13:30 07/09/24 09:56 200 MG Albuterol 2.5 mg Q6HR NEB 06/29/24 12:40 07/09/24 18:35 2.5 MG Ipratropium [place] 0.5 mg Q6HR NEB 06/29/24 12:41 07/09/24 18:35 0.5 MG Acetylcysteine 200 mg Q6HR NEB 06/29/24 12:41 07/09/24 18:35 200 MG Morphine Sulfate 2 mg Q4HPRN PRN IV 07/04/24 13:00 07/08/24 01:13 2 MG Hydralazine HCl 10 mg Q6HP PRN IV 07/04/24 18:30 Alprazolam 0.25 mg TIDPRN PRN PO 07/05/24 14:00 Acetaminophen/ Hydrocodone Bitart 2 tab Q6HPRN PRN PO 07/09/24 12:15 UNV Acetaminophen/ Hydrocodone [place] 1 tab Q6HPRN PRN PO 07/09/24 13:00 07/09/24 13:31 1 TAB Enteral Nutritional Formula 240 ml TIDWM PO 07/09/24 18:00 07/09/24 18:51 240 ML Furosemide 20 mg DAILY PO 07/10/24 10:00 Potassium Bicarbonate 25 meq DAILY PO 07/10/24 10:00 Laboratory Laboratory Tests 07/09/24 15:10 Test 07/09/24 15:10 Range/Units Serum Glucose 132 H 74-106 mg/dL Microbiology Date/Time Source Procedure Growth Status 06/29/24 18:08 Bronchial Washings Gram Stain - Final Complete 06/29/24 18:08 Respiratory Culture - Final Pseudomonas aeruginosa Complete 06/28/24 10:30 Chest Gram Stain - Final Complete 06/28/24 10:30 Chest Anaerobic Culture - Final Complete 06/28/24 10:30 Aerobic Culture - Final Pseudomonas aeruginosa Complete 06/25/24 14:45 Pleural Fluid Gram Stain - Final Complete 06/25/24 14:45 Body Fluid Culture - Final Pseudomonas aeruginosa Complete 06/25/24 06:40 Urine - [place] Urine Culture - Final Yeast, not Radha albicans Complete 06/24/24 20:21 Blood Blood Culture - Final NO GROWTH AFTER 5 DAYS OF INCUBATION. Complete Examination: GENERAL:Normal, HEENT:Normal, NECK:Abnormal (trach), LUNGS:Abnormal (chest tubes), CVS:Normal, ABDOMEN:Normal Problem List/Assessment/Plan Problems: (1) Pneumothorax (2) Chest tube in place Assessment and Plan chest tube in place , air leak , notes , image reports reviewed , discussed withDr. Womack continue current treatment 07/09/2024 @ [address], air leak, wounds clean dry and intact Discussed with dr. Womack continue current treatment Plan discussed with Plan discussed with: Other (Dr. womack) Visit Coding Surgery Date of Service if different f: Jul 09, 2024 Billing Provider: JIHAN WOMACK MD Surgery Visit Codes: [id number] INP/OBS CARE(HIGH) NITA CEDENO [facility] Jul 09, 2024 22:42
[2024-07-10] VITALS (81 sets, daily range): BP systolic 84–115; BP diastolic 42–55; PULSE 67–97; RESP 11–28; TEMP 97.3–98.1; O2SAT 93–100
--- NOTE | 2024-07-10 05:17 | DVH ---
EXAM: XR Chest, 1 View CLINICAL INDICATION: CHEST TUBE TECHNIQUE: Frontal view of the chest. COMPARISON: XY CHEST PORTABLE on DOS: 07/09/24, XY CHEST PORTABLE on DOS: 07/05/24, XY CHEST PORTABLE on DOS: 07/05/24, XY CHEST PORTABLE on DOS: 07/04/24, XY CHEST PORTABLE on DOS: 07/03/24 FINDINGS: LUNGS AND PLEURAL SPACES: Stable left-sided pneumothorax. Stable right basilar pneumothorax. HEART: Cardiomegaly with mild congestion. MEDIASTINUM: Unremarkable. Normal mediastinal contour. BONES/JOINTS: Unremarkable. No acute fracture. TUBES, LINES AND DEVICES: Stable tubes and lines. OTHER FINDINGS: . None. . .. IMPRESSION: 1. Stable left-sided pneumothorax. Stable right basilar pneumothorax. 2. Cardiomegaly with mild congestion.
[2024-07-10 05:35] LABS: Basophils # (auto) 0.1 10 ^3/uL (0-0.2); Eosinophils # (auto) 0.3 10 ^3/uL (0-0.8); Eosinophils % (auto) 3.9 % (0.0-7.0); Hemoglobin 9.6 g/dL (13.5-17.5); Lymphocytes # (auto) 2.3 10 ^3/uL (0.4-5.4); Mean Corpuscular Hemoglobin 26.9 pg (28.0-32.0); Nucleated Red Blood Cells % 0.2 %; Red Blood Cells 3.57 10^6/uL (4.5-5.90)
[2024-07-10 05:36] LABS: Basophils % (auto) 0.8 % (0.0-2.0); Lymphocytes % (auto) 29.3 % (10.0-50.0); Mean Corpuscular Hgb Conc. 31.9 g/dL (32.0-36.0); Mean Corpuscular Volume 84.2 fL (80.0-100.0); Monocytes # (auto) 0.8 10 ^3/uL (0-1.3); Monocytes % (auto) 10.4 % (0.0-12.0); Neutrophils # (auto) 4.4 10 ^3/uL (1.6-8.6); Neutrophils % (auto) 55.6 % (37.0-80.0); Platelet Count (auto) 223 10^3/uL (140-450); Red Cell Distribution Width 18.9 % (11.8-14.3); White Blood Cell 7.9 10^3/uL (4.4-10.8)
[2024-07-10 05:52] LABS: Alanine Aminotransferase 17 U/L (7-40); Anion Gap 6 (5-15); Aspartate Aminotransferase 23 U/L (13-40); BUN/Creatinine Ratio 26.1 (10.0-20.0); Blood Urea Nitrogen 12 mg/dL (9-23); Carbon Dioxide 26 mmol/L (20-31); Glucose 99 mg/dL (74-106); Magnesium 1.9 mg/dL (1.6-2.6); Potassium 3.8 mmol/L (3.5-5.1); Sodium 143 mmol/L (136-145)
[2024-07-10 06:32] LABS: Chloride 111 mmol/L (98-107)
[2024-07-10 06:33] LABS: Alkaline Phosphatase 135 U/L (46-116); Bilirubin, Total 1.5 mg/dL (0.2-1.0); Phosphorus 1.8 mg/dL (2.4-5.1)
[2024-07-10] MEDS: POTASSIUM PHOSPHATE 22 MEQ in SODIUM CHL 0.9% 100 ML IV ONE (07:45)
--- NOTE | 2024-07-10 07:45 | DVHPNRES ---
Progress Note Date Seen: Jul 10, 2024 Resident Creating Document: DORINDAMILLI Has the PT tested + for MRSA If YES, has PT been informed?: No Medical Necessity Reason Pt with a Central, PICC or Fol: No The following are medically ne: Central Line, Olsen Catheter Reason for olsen catheter: Strict I&O Subjective Review of Systems tolerating PT and voice better, hemodynamically stable. Patient reports: Feels better Objective vital signs Vital Sign Date Time Temp Pulse Resp B/P (MAP) Pulse Ox O2 Delivery O2 Flow Rate FiO2 07/10/24 07:15 77 11 07/10/24 06:50 99 07/10/24 06:42 Trach Collar 6.0 07/10/24 06:42 28 28 07/10/24 01:00 97.5 97.5 Total Intake and Output 07/09/24 07/09/24 07/10/24 15:00 23:00 07:00 Intake Total 750 ml 960 ml Output Total 200 ml 375 ml Balance 550 ml 585 ml medications Current Medications Medications Dose Ordered Sig/Amy Route Start Time Stop Time Status Last Admin Dose Admin Potassium Chloride 100 ml @ 50 mls/hr Q2H IV 05/27/24 17:15 05/28/24 01:14 UNV Acetaminophen 650 mg Q6HP PRN PO 05/31/24 19:30 07/05/24 05:13 650 MG Potassium Chloride 100 ml @ 50 mls/hr Q2H IV 06/13/24 12:45 06/13/24 16:44 UNV Magnesium Sulfate/ Dextrose 100 ml @ 100 mls/hr Q1HR IV 06/13/24 13:00 06/13/24 14:59 UNV Cefepime HCl 50 ml @ 12.5 mls/hr Q8HR IV 06/13/24 14:00 UNV Sodium Chloride 10 ml QSHIFT@10,22 IV 06/17/24 22:00 07/09/24 22:00 10 ML Pantoprazole Sodium 40 mg DAILY IV 06/18/24 10:00 07/09/24 09:56 40 MG Amiodarone HCl 200 mg DAILY PO 06/26/24 13:30 07/09/24 09:56 200 MG Albuterol 2.5 mg Q6HR NEB 06/29/24 12:40 07/10/24 06:41 2.5 MG Ipratropium [place] 0.5 mg Q6HR NEB 06/29/24 12:41 07/10/24 06:41 0.5 MG Acetylcysteine 200 mg Q6HR NEB 06/29/24 12:41 07/10/24 06:42 200 MG Morphine Sulfate 2 mg Q4HPRN PRN IV 07/04/24 13:00 07/08/24 01:13 2 MG Hydralazine HCl 10 mg Q6HP PRN IV 07/04/24 18:30 Alprazolam 0.25 mg TIDPRN PRN PO 07/05/24 14:00 Acetaminophen/ Hydrocodone Bitart 2 tab Q6HPRN PRN PO 07/09/24 12:15 UNV Acetaminophen/ Hydrocodone Bitart 1 tab Q6HPRN PRN PO 07/09/24 13:00 07/10/24 05:04 1 TAB Enteral Nutritional Formula 240 ml TIDWM PO 07/09/24 18:00 07/09/24 18:51 240 ML Furosemide 20 mg DAILY PO 07/10/24 10:00 Potassium Bicarbonate 25 meq DAILY PO 07/10/24 10:00 Examination General Appearance: Overall comfortable , overall weak but improved health. HEENT: Atraumatic Neck: Other (tracheostomy) healthy tracheostomy wound . Lungs: Other (MV sounds) improved Chest/Breasts: Other (one right-sided chest tube; and one left-sided chest tube leaking) Cardiovascular: Regular rate, Normal S1, Normal S2 Abdomen: Normal bowel sounds, Soft Genitourinary: Other (Olsen's) Neuro: while patient is alert, conversant, able to respond to verbal and pain stimuli, week vocals gradually getting better. Psych/Mental Status: Alert, appropriate affect laboratory and microbiology Laboratory Tests 07/10/24 05:00 Test 07/10/24 05:00 Range/Units Serum Glucose 99 74-106 mg/dL Microbiology Date/Time Source Procedure Growth Status 06/29/24 18:08 Bronchial Washings Gram Stain - Final Complete 06/29/24 18:08 Respiratory Culture - Final Pseudomonas aeruginosa Complete 06/28/24 10:30 Chest Gram Stain - Final Complete 06/28/24 10:30 Chest Anaerobic Culture - Final Complete 06/28/24 10:30 Aerobic Culture - Final Pseudomonas aeruginosa Complete 06/25/24 14:45 Pleural Fluid Gram Stain - Final Complete 06/25/24 14:45 Body Fluid Culture - Final Pseudomonas aeruginosa Complete 06/25/24 06:40 Urine - [place] Urine Culture - Final Yeast, not Radha albicans Complete 06/24/24 20:21 Blood Blood Culture - Final NO GROWTH AFTER 5 DAYS OF INCUBATION. Complete Labs and/or images reviewed: Labs reviewed by me, Image(s) reviewed by me Problem List/Assessment/Plan Problem List/Assessment/Plan ICU Course: A 63-year-old male with a history of heart failure with reduced ejection fraction 20%, severe mitral regurgitation, dilated aortic root of 4.9 cm, moderate pulmonary arterial hypertension, pulmonary embolism, congestive heart failure (CHF) and pulmonary embolism was intubated in the ICU. He developed necrotic pressure ulcers and multiorgan failure, large right pleural effusion, right heart strain, right pulmonary artery embolus, leading to a tracheostomy. A chest tube was placed, and a chest CT was performed. Due to low blood pressure, he required Levophed. Initially was on BiPAP, eventually needed intubation, status post trach, now on minimal vent settings. tolerating well x5 days. Patient is much more awake alert and conversant. Voice more stronger and patient passed swallow eval advanced diet from pureed to mechanical soft, added ensure t.i.d., started physical therapy and we will try to start right chest tube weaning trial. Hospitalization day: 48 A. Neurology: #Acute metabolic/toxic encephalopathy in the setting of septic shock, improved. 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 B. Cardiology: # Acute on chronic systolic CHF # heart failure with reduced ejection fraction: Ejection fraction of 20%: 2 g salt restriction, careful fluid management, GDMT started jardiance 10 mg daily as per EMPEROR-Reduced trial. # mild AV calcification # severe mitral regurgitation # dilated aortic root 4.9 cm, stable. # Atrial flutter, currently sinus rhythm: had sync cardioversion on 05/27/24 # Non-sustained Vtach, subsided keep the patient on telemetry, keep K+ >4 mg>2 C. Respiratory: #Acute hypoxic respiratory failure due to Pseudomonas aeruginosa pneumonia, pleural effusions, and pulmonary embolism: on mech vent, intubated on 05/26/24, reintubation on 06/12/24 due to ETT leak, extubated 06/26/24, tracheostomy tube placed 06/26/24, trach collar trials started on 07/02/2024: next day satisfactory, so will successful full day trach collar>>> we will try 24 hour trach, tolerating well, we will try to wait till the trach matures. #Septic shock due to Pseudomonas aeruginosa pneumonia: Status post IV antibiotics, recheck sputum/secretion from tracheostomy tube, to rule out any residual infection. #Pleural effusions s/p three chest tubes (two on the right; one on the left) right chest tube out, no changes in respiratory status. cxr unremarkable. CT chest satisfactory. Surgical team and pulmonology updated. Repeat CXR NO interval changes. #moderate pulmonary arterial hypertension #large right pulmonary artery embolus #right hydro pneumothorax with right chest tube in-situ. #Moderate left pleural effusion. 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 Olivas/surgery team on board, repeat CT chest shows subcutaneous emphysema no surgical intervention. #Large right pleural effusion: s/p multiple thoracentesis, pt has currently 2 chest tubes & last CT 06/16/24 shows Moderate right pleural fluid collection with near complete collapse of the right lower lobe chest tube in place within the collection. #Right lower lobe atelectasis, mildly improved #Multiple mucus plugs status post multiple bronchoscopies #Pneumonia, community acquired, gram +/-, possible superseded fungal infection: Micafungin for infection #pneumomediastinum, hemodynamically stable #Increased left pneumothorax despite the presence of a left chest tube: Continues to have air leak at -30 of air seal, patient is hemodynamically stable, still continues to have subcutaneous emphysema. No possible solution except surgical management when patient is able to undergo surgical decortication. #Left chest tube dislodgement: surgical consult to management as it was previously managed by Dr. Henry. Kiya Gastrointestinal: # Transaminitis likely due to sepsis: Improving # Moderate colonic diverticulosis: Without signs of diverticulitis. # Cholelithiasis, without cholecystitis. # nutrition: Glucerna # constipation: On Colace # Swallow eval passed> nutrition started on oral pureed diet. aspiration precautions to continue> changed to mechanical soft diet. # nutrition: Pureed diet, cardiologic modification along with salt restriction, change to we will mechanical soft with high-protein diet, ensure t.i.d. # moderate malnutrition: Dietary consult, continue supplements. E. Genitourinary: Uncomplicated presumably, off of foleys. F. Infectious Disease: # complicated UTI: urine culture reveals Pseudomonas and Enterococcus, appropriately on antibiotics asymptomatic presumably # shock, likely cardiogenic/septic: Negative for hepatitis-B, hepatitis-C, HIV, # Sacral Wound, Unstageable: Status post wound debridement wound care to continue patient on -125 cc of wound VAC in past 24 hour approximately 200 mL of collection likely we will need long-term wound VAC support. Appreciate input of wound care team, q2 hours positions change. # respiratory Pseudomonas infection: Status post Zerbaxa pending repeat respiratory Pseudomonas culture to determine fate of further IV antibiotics. G. Hematology & Oncology: # anemia, normocytic, severe: s/p 1 unit of PRBC transfusion, H&H stable # coagulopathy likely due to sepsis, no active bleeding noted presumably. # thrombocytopenia: Improved H. Nephrology: renal function satisfactory: Urine output appropriate # Hypernatremia, corrected # Hyperkalemia, corrected # hypokalemia , Corrected # RADHA likely due to vasomotor nephropathy, improved monitor BMP closely # metabolic alkalosis with respiratory alkalosis, improved # hypophosphatemia, corrected I. Endocrine: # prediabetic with HbA1c of 6.1 J. MSK: # ICU myopathy: Low muscle mass extremely weak, we will need probably extensive physical therapy and support. Start aggressive in-hospital physiotherapy, PT consulted. Appreciate input. We will look for any further modification or discharge planning to LTAC. Fall precautions in place. Added Trapeze bar to beds to improve upper body functional status. K. Prophylaxis: PPI: Pantoprazole dc now DVT: SCDs L. Lines & Drains (with insertion date): PICC line 06/17/24 Left subclavian CVC line 06/05/24, removed 06/17/24 Right femoral A-line 06/03/24, discontinued 06/24/2024 Olsen catheter 05/21/24 right Arterial line 06/26/23 N. Disposition: Remains in [facility], Advance discharge planning with wound vac with social work started. SW consulted input appreciate. Advance placement planning for LTAC if patient remains hemodynamically stable afterwards. The plan was discussed with the ICU attending Dr. Clayton. The patient care consists of total 69 minutes of critical care time excluding the procedures. Dictated by Jose Francisco Treadwell MD with 3M MModal Fluency. Plan discussed with: Patient, Other (primary team RN) My Orders My Orders Orders - JOSE FRANCISCO TREADWELL Procedure Category Date Status Time Pt Request For Service PT 07/09/24 Logged 12:09 Hydrocodone-Acet PHA 07/09/24 In Process 5/325mg Tab ([place] 13:00 Mechanical Soft Diet DIET 07/09/24 Transmitted Dinner Chest Portable XY 07/10/24 Resulted 04:00 Potassium Phosphate PHA 07/10/24 Logged 07:45 Dietary Evaluation Review Comments: 1. consider Renal Specific 70g protein restriction witn 2GNa, 3K, low Phos, if no diaylsis needed. 2. consider Renal Standard 2gn, 3K, low phosphate diet if Pt is on dialysis. 3. encourage and monitor po intake to meet 75% of his needs. Expected Outcomes/Goals: avoid uremic symptoms, gradual healed wounds. Date of Service: Jul 10, 2024 Billing Provider: TIFFANY CLAYTON MD Common Visit Codes: [id number] CARE 30-74 MIN JOSE FRANCISCO TREADWELL Jul 10, 2024 07:45 TIFFANY CLAYTON MD Jul 11, 2024 11:41
[2024-07-10] MEDS: MAGNESIUM SULFATE 1GM/100ML 100 ML IV ONE (09:30)
[2024-07-10] MEDS: FUROSEMIDE 20 MG TAB PO SCH (09:48)
[2024-07-10] MEDS: POTASSIUM EFFERVESENT TAB 25 MEQ PO SCH (09:49)
--- NOTE | 2024-07-10 09:59 | DVHPN2 ---
Progress Note - Dictate Date Seen: Jul 10, 2024 Has the PT tested + for MRSA If YES, has PT been informed?: No Medical Necessity Reason Pt with a Central, PICC or Fol: No The following are medically ne: Central Line, Olsen Catheter Reason for olsen catheter: Strict I&O Subjective PT WITH SS COMPLEX INCRESEING SOB HARVEY LE EDEMA HFrEF CHRONIC AND ACUTE NOW WITH HEMOPTYSIS TACHYCARDIA CTA LUNG C/W PE ACUTE vital signs Vital Sign Date Time Temp Pulse Resp B/P (MAP) Pulse Ox O2 Delivery O2 Flow Rate FiO2 07/10/24 09:48 102/48 07/10/24 08:00 17 97 Cool Aerosol 6 28 28 07/10/24 08:00 76 07/10/24 07:30 98.1 98.1 Total Intake and Output 07/09/24 07/09/24 07/10/24 15:00 23:00 07:00 Intake Total 750 ml 960 ml Output Total 200 ml 375 ml Balance 550 ml 585 ml medications Current Medications Medications Dose Ordered Sig/Amy Route Start Time Stop Time Status Last Admin Dose Admin Potassium Chloride 100 ml @ 50 mls/hr Q2H IV 05/27/24 17:15 05/28/24 01:14 UNV Acetaminophen 650 mg Q6HP PRN PO 05/31/24 19:30 07/05/24 05:13 650 MG Potassium Chloride 100 ml @ 50 mls/hr Q2H IV 06/13/24 12:45 06/13/24 16:44 UNV Magnesium Sulfate/ Dextrose 100 ml @ 100 mls/hr Q1HR IV 06/13/24 13:00 06/13/24 14:59 UNV Cefepime HCl 50 ml @ 12.5 mls/hr Q8HR IV 06/13/24 14:00 UNV Sodium Chloride 10 ml QSHIFT@10,22 IV 06/17/24 22:00 07/10/24 09:47 10 ML Amiodarone HCl 200 mg DAILY PO 06/26/24 13:30 07/10/24 09:49 200 MG Albuterol 2.5 mg Q6HR NEB 06/29/24 12:40 07/10/24 06:41 2.5 MG Ipratropium [place] 0.5 mg Q6HR NEB 06/29/24 12:41 07/10/24 06:41 0.5 MG Acetylcysteine 200 mg Q6HR NEB 06/29/24 12:41 07/10/24 06:42 200 MG Morphine Sulfate 2 mg Q4HPRN PRN IV 07/04/24 13:00 07/08/24 01:13 2 MG Alprazolam 0.25 mg TIDPRN PRN PO 07/05/24 14:00 Acetaminophen/ Hydrocodone Bitart 2 tab Q6HPRN PRN PO 07/09/24 12:15 UNV Acetaminophen/ Hydrocodone Bitart 1 tab Q6HPRN PRN PO 07/09/24 13:00 07/10/24 05:04 1 TAB Enteral Nutritional Formula 240 ml TIDWM PO 07/09/24 18:00 07/10/24 08:00 240 ML Furosemide 20 mg DAILY PO 07/10/24 10:00 07/10/24 09:48 20 MG Potassium Bicarbonate 25 meq DAILY PO 07/10/24 10:00 07/10/24 09:49 25 MEQ Pantoprazole Sodium 40 mg DAILY@0600 PO 07/11/24 06:00 Empaglifozin 10 mg DAILY PO 07/10/24 10:00 objective PUL DIFF RHONCHI JVD [place] OF [place] CV RR PMI DIFFUSE EXT 3+ EDEMA laboratory and microbiology Laboratory Tests 07/10/24 05:00 Test 07/10/24 05:00 Range/Units Serum Glucose 99 74-106 mg/dL Problem List SS COMPLEX INCRESEING SOB HARVEY LE EDEMA HFrEF CHRONIC AND ACUTE EF < 20% NOW WITH HEMOPTYSIS TACHYCARDIA CTA LUNG C/W PE 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 Large filling defect right pulmonary artery consistent with pulmonary embolus. No film findings of pulmonary artery hypertension. No pulmonary emboli noted on the left. 2. Findings are also suggestive of right heart strain. 3. Large right pleural effusion. HEPARIN DRIP\ LASIX DRIP WILL START ORAL ANTICOAGULATION IN 48 HOURS ABX LE ARTERIAL DOPPLER NO SIGNIFICANT DISEASE FOR LIMB RISK DC HEPARIN START ELIQUIS S/P CT HEAD CURRENTLY ON BiPAP IMPROVING RESP STATUS 7.32/59/69 TITRATE BIPAP THORACENTESIS ULTRASOUND GUIDED MRI OF ABD S/P THORACENTESIS 2200 CC DRAINED CXR BILATERAL INFILTRATE PROMINENT MEDIASTINUM CARDIOMEGALY HYPOKALEMIA BEING CORRECTED A FLUTTER S/P CARDIOVERSION SINUS RHYTHM TITRATE OFF LEVOPHED USE ALBUMIN FOR PRESSURE SPORT DC LASIX DRIP START D5 1/4 NS AT 125 CC/HR BMP/ BNP DAILY cont volume replacement contraction alkalosis leukocytosis improved monitor h/h HYPERNATREMIA IMPROVING DIAMOX X 1 DOSE tracheostomy awake alert increase nutritional supplementy testosterone HYPERNATREMIA CORRECTED DC IV FLUID CONT TPN INCREASE VENT SETTING TO AC 22 EPISODE OF [place] CORRECT ACIDOSIS MAG SO4 2 G TITRATE OFF LEVOPHED DIAMOX TREAT METABOLIC ALKALOSIS RESP ACIDOSIS START TITRATING OFF SEDATION IMPROVED RESP PARAMETERS LIVER ENZYMES STILL ELEVATED wean off sedation CORRECT HYPERNATREMIA CHECK BNP AICD IMPLANTATION PT DEVELOPED PNEUMOTHORAX DELAYING EXTUBATION PNEUMOTHORAX IMPROVED LEUKOCYTOSIS AGAIN ELECTROLYTES BETTER NOW CXR CONSISTENT WITH CHF CORRECT K AND Mg CHANGE ABX VANCO AND AZTREONAM EPOGEN IRON DC ELIQUIS START LOVENOX WBC CONTINUES TO INCREASE NEEDS SURGICAL DEBRIDEMENT OF DECUB CXR WORSENING EFFUSION AND FLUID OVERLOAD START LASIX DRIP CXR CONSISTENT WITH MULTIFOCAL CONSOLIDATION EXCELLENT DIURESIS WITH LASIX DRIP MONITOR FLUID STATUS NEEDS DEBRIDEMENT OF DECUB WITH PERSISTENT LEUKOCYTOSIS CONSIDER BRONCHOSCOPY TO CLEAR CONSOLIDATION/ MUCUS CXR WORSENING LEFT SIDED EFFUSION/ INFILTRATE LEUKOCYTOSIS WORSENING DESPITE WOUND DEBRIDEMENT RECOMMEND BRONCHOSCOPY S/P DEBRIDEMENT OF STAGE IV DECUB WOUND POSITIVE FOR PSEUDOMONAS/ ENTEROCOCCUS URINE YEAST LEUKOCYTOSIS TRENDING DOWN CHECK CXR CHECK BNP CORRECT K PROGRESSIVE ANEMIA NEEDS ANTICOAGULATION FOR PE CONSIDER BRONCHOSCOPY WORSENING WBC IMPROVING WBC SEVERE ANEMIA START IRON WITH EPOGEN METABOLIC ALKALOSIS AGAIN DIAMOX CXR BETTER AERATION ON THE LEFT SIDED ONE DOSE OF IRON GIVEN ONE DOSE OF EPOGEN LEUKOCYTOSIS IMPROVING CHECK UA DIAMOX FOR WORSENING METABOLIC ALKALOSIS DECREASE REP RATE FOR RESP ALKALOSIS IRON STUDY FROM 06/21/24 LOW SERUM IRON LOW TIBC FERRITIN HIGH SECONDARY TO BEING ACUTE PHASE REACTANT S/P TRACHEOSTOMY NOW PT REQUIRES 2 UNITS OF PRBC CHECK UA CBC IN AM BNP IN AM ABG PT AWAKE STILL WITH PNEUMOTHORAX ABG BETTER DC PEEP TRANSFUSE PRBC EPOGEN AND IRON UA TODAY PNEUMOTHORAX STABLE Dietary Evaluation Review Comments: 1. consider Renal Specific 70g protein restriction witn 2GNa, 3K, low Phos, if no diaylsis needed. 2. consider Renal Standard 2gn, 3K, low phosphate diet if Pt is on dialysis. 3. encourage and monitor po intake to meet 75% of his needs. Expected Outcomes/Goals: avoid uremic symptoms, gradual healed wounds. Plan discussed with: Patient, Spouse Critical Care Time(min): 35 ISSAC SHAH MD Jul 10, 2024 09:58
[2024-07-10] MEDS: EMPAGLIFLOZIN 10 MG TAB PO SCH (10:18)
[2024-07-10] MEDS: SODIUM PHOSPHATES 20 MEQ in SODIUM CHL 0.9% 100 ML IV ONE (10:44)
[2024-07-10 15:40] LABS: Urine Bacteria FEW /hpf (None Seen); Urine Blood TRACE /uL (Negative); Urine Budding Yeast LOADED /hpf (None Seen); Urine Clarity Turbid (Clear); Urine Color Light-Yellow (Yellow); Urine Hyaline Cast FEW /lpf (0 - 2); Urine Mucus FEW (None Seen); Urine Protein, UAD TRACE (Negative); Urine Specific Gravity 1.012 (1.001-1.035); Urine Squamous Epithelial Cell None Seen /hpf (<5); Urine Urobilinogen Normal (Negative); Urine WBC 2 /HPF (0-3)
[2024-07-11] VITALS (37 sets, daily range): BP systolic 83–117; BP diastolic 43–54; PULSE 79–97; RESP 10–26; TEMP 97.9–98.5; O2SAT 90–100
[2024-07-11 05:53] LABS: Alanine Aminotransferase 16 U/L (7-40); Anion Gap 5 (5-15); Aspartate Aminotransferase 21 U/L (13-40); BUN/Creatinine Ratio 29.5 (10.0-20.0); Blood Urea Nitrogen 13 mg/dL (9-23); Carbon Dioxide 27 mmol/L (20-31); Glucose 90 mg/dL (74-106); Potassium 4.2 mmol/L (3.5-5.1); Sodium 141 mmol/L (136-145)
[2024-07-11 06:00] LABS: Alkaline Phosphatase 130 U/L (46-116); Bilirubin, Total 1.4 mg/dL (0.2-1.0); Calcium 7.8 mg/dL (8.7-10.4); Chloride 109 mmol/L (98-107)
[2024-07-11] MEDS ORDERED: PANTOPRAZOLE 40 MG TAB PO SCH (06:00)
[2024-07-11 06:18] LABS: Total Protein 4.9 g/dL (5.7-8.2)
[2024-07-11 06:42] LABS: Basophils # (auto) 0.1 10 ^3/uL (0-0.2); Basophils % (auto) 0.7 % (0.0-2.0); Eosinophils # (auto) 0.2 10 ^3/uL (0-0.8); Eosinophils % (auto) 2.2 % (0.0-7.0); Hematocrit 28.9 % (41.0-53.0); Hemoglobin 9.3 g/dL (13.5-17.5); Lymphocytes # (auto) 2.3 10 ^3/uL (0.4-5.4); Lymphocytes % (auto) 25.5 % (10.0-50.0); Mean Corpuscular Hemoglobin 27.2 pg (28.0-32.0); Mean Corpuscular Hgb Conc. 32.3 g/dL (32.0-36.0); Mean Corpuscular Volume 84.1 fL (80.0-100.0); Monocytes # (auto) 0.7 10 ^3/uL (0-1.3); Monocytes % (auto) 8.3 % (0.0-12.0); Neutrophils # (auto) 5.6 10 ^3/uL (1.6-8.6); Neutrophils % (auto) 63.3 % (37.0-80.0); Nucleated Red Blood Cells % 0.4 %; Platelet Count (auto) 264 10^3/uL (140-450); Red Blood Cells 3.43 10^6/uL (4.5-5.90); Red Cell Distribution Width 20.1 % (11.8-14.3); White Blood Cell 8.8 10^3/uL (4.4-10.8)
--- NOTE | 2024-07-11 10:07 | DVHPN2 ---
Progress Note - Surgical Date Seen: Jul 11, 2024 Post op day Post op day: 7 Subjective Patient reports: No new complaints Review of Systems: Not Done Objective Vital signs Vital Sign Date Time Temp Pulse Resp B/P (MAP) Pulse Ox O2 Delivery O2 Flow Rate FiO2 07/11/24 09:32 14 100 Room Air* 0 21 07/11/24 09:32 84 07/11/24 09:25 111/48 07/11/24 08:00 97.9 97.9 Total Intake and Output 07/10/24 07/10/24 07/11/24 15:00 23:00 07:00 Intake Total 183.75 ml 721.25 ml 240 ml Output Total 1440 ml 770 ml Balance 183.75 ml -718.75 ml -530 ml Medications Current Medications Medications Dose Ordered Sig/Amy Route Start Time Stop Time Status Last Admin Dose Admin Potassium Chloride 100 ml @ 50 mls/hr Q2H IV 05/27/24 17:15 05/28/24 01:14 UNV Acetaminophen 650 mg Q6HP PRN PO 05/31/24 19:30 07/05/24 05:13 650 MG Potassium Chloride 100 ml @ 50 mls/hr Q2H IV 06/13/24 12:45 06/13/24 16:44 UNV Magnesium Sulfate/ Dextrose 100 ml @ 100 mls/hr Q1HR IV 06/13/24 13:00 06/13/24 14:59 UNV Cefepime HCl 50 ml @ 12.5 mls/hr Q8HR IV 06/13/24 14:00 UNV Sodium Chloride 10 ml QSHIFT@10,22 IV 06/17/24 22:00 07/11/24 09:26 10 ML Amiodarone HCl 200 mg DAILY PO 06/26/24 13:30 07/11/24 09:25 200 MG Albuterol 2.5 mg Q6HR NEB 06/29/24 12:40 07/11/24 05:48 2.5 MG Ipratropium [place] 0.5 mg Q6HR NEB 06/29/24 12:41 07/11/24 05:48 0.5 MG Acetylcysteine 200 mg Q6HR NEB 06/29/24 12:41 07/11/24 05:48 200 MG Morphine Sulfate 2 mg Q4HPRN PRN IV 07/04/24 13:00 07/08/24 01:13 2 MG Alprazolam 0.25 mg TIDPRN PRN PO 07/05/24 14:00 Acetaminophen/ Hydrocodone Bitart 2 tab Q6HPRN PRN PO 07/09/24 12:15 UNV Acetaminophen/ Hydrocodone Bitart 1 tab Q6HPRN PRN PO 07/09/24 13:00 07/11/24 07:57 1 TAB Enteral Nutritional Formula 240 ml TIDWM PO 07/09/24 18:00 07/11/24 08:07 240 ML Furosemide 20 mg DAILY PO 07/10/24 10:00 07/11/24 09:25 20 MG Potassium Bicarbonate 25 meq DAILY PO 07/10/24 10:00 07/11/24 09:26 25 MEQ Empaglifozin 10 mg DAILY PO 07/10/24 10:00 07/11/24 09:25 10 MG Laboratory Laboratory Tests 07/11/24 04:53 Test 07/11/24 04:53 Range/Units Serum Glucose 90 74-106 mg/dL Microbiology Date/Time Source Procedure Growth Status 06/29/24 18:08 Bronchial Washings Gram Stain - Final Complete 06/29/24 18:08 Respiratory Culture - Final Pseudomonas aeruginosa Complete 06/28/24 10:30 Chest Gram Stain - Final Complete 06/28/24 10:30 Chest Anaerobic Culture - Final Complete 06/28/24 10:30 Aerobic Culture - Final Pseudomonas aeruginosa Complete 06/25/24 14:45 Pleural Fluid Gram Stain - Final Complete 06/25/24 14:45 Body Fluid Culture - Final Pseudomonas aeruginosa Complete 06/25/24 06:40 Urine - [place] Urine Culture - Final Yeast, not Radha albicans Complete 06/24/24 20:21 Blood Blood Culture - Final NO GROWTH AFTER 5 DAYS OF INCUBATION. Complete Examination: GENERAL:Normal, NECK:Abnormal (trach), CVS:Normal, ABDOMEN:Normal Labs and/or images reviewed: Image(s) reviewed by me Problem List/Assessment/Plan Problems: (1) Chest tube in place (2) Pneumothorax Assessment and Plan chest tube in place , air leak , notes , image reports reviewed , discussed withDr. Tilley continue current treatment 07/09/2024 @ [address], air leak, wounds clean dry and intact Discussed with dr. Tilley continue current treatment 07/11/[address] Tilley air leak, chest tube advanced reevaluate in 24 hours for leak wounds clean dry and in tact, NO SOB Plan discussed with Plan discussed with: Patient, Other (Dr. Tilley ) Visit Coding Surgery Date of Service if different f: Jul 11, 2024 Billing Provider: JIHAN TILLEY MD Surgery Visit Codes: [id number] INP/OBS CARE(HIGH) NITA CEDENO [facility] Jul 11, 2024 10:06
--- NOTE | 2024-07-11 10:37 | DVHPNRES ---
Progress Note Date Seen: Jul 11, 2024 Resident Creating Document: JOSE FRANCISCO GAMINO RESIDENT Has the PT tested + for MRSA If YES, has PT been informed?: No Medical Necessity Reason Pt with a Central, PICC or Fol: No The following are medically ne: Central Line, Olsen Catheter Reason for olsen catheter: Strict I&O Objective vital signs Vital Sign Date Time Temp Pulse Resp B/P (MAP) Pulse Ox O2 Delivery O2 Flow Rate FiO2 07/11/24 09:32 14 100 Room Air* 0 21 07/11/24 09:32 84 07/11/24 09:25 111/48 07/11/24 08:00 97.9 97.9 Total Intake and Output 07/10/24 07/10/24 07/11/24 15:00 23:00 07:00 Intake Total 183.75 ml 721.25 ml 240 ml Output Total 1440 ml 770 ml Balance 183.75 ml -718.75 ml -530 ml medications Current Medications Medications Dose Ordered Sig/Amy Route Start Time Stop Time Status Last Admin Dose Admin Potassium Chloride 100 ml @ 50 mls/hr Q2H IV 05/27/24 17:15 05/28/24 01:14 UNV Acetaminophen 650 mg Q6HP PRN PO 05/31/24 19:30 07/05/24 05:13 650 MG Potassium Chloride 100 ml @ 50 mls/hr Q2H IV 06/13/24 12:45 06/13/24 16:44 UNV Magnesium Sulfate/ Dextrose 100 ml @ 100 mls/hr Q1HR IV 06/13/24 13:00 06/13/24 14:59 UNV Cefepime HCl 50 ml @ 12.5 mls/hr Q8HR IV 06/13/24 14:00 UNV Sodium Chloride 10 ml QSHIFT@10,22 IV 06/17/24 22:00 07/11/24 09:26 10 ML Amiodarone HCl 200 mg DAILY PO 06/26/24 13:30 07/11/24 09:25 200 MG Albuterol 2.5 mg Q6HR NEB 06/29/24 12:40 07/11/24 05:48 2.5 MG Ipratropium [place] 0.5 mg Q6HR NEB 06/29/24 12:41 07/11/24 05:48 0.5 MG Acetylcysteine 200 mg Q6HR NEB 06/29/24 12:41 07/11/24 05:48 200 MG Morphine Sulfate 2 mg Q4HPRN PRN IV 07/04/24 13:00 07/08/24 01:13 2 MG Alprazolam 0.25 mg TIDPRN PRN PO 07/05/24 14:00 Acetaminophen/ Hydrocodone Bitart 2 tab Q6HPRN PRN PO 07/09/24 12:15 UNV Acetaminophen/ Hydrocodone Bitart 1 tab Q6HPRN PRN PO 07/09/24 13:00 07/11/24 07:57 1 TAB Enteral Nutritional Formula 240 ml TIDWM PO 07/09/24 18:00 07/11/24 08:07 240 ML Furosemide 20 mg DAILY PO 07/10/24 10:00 07/11/24 09:25 20 MG Potassium Bicarbonate 25 meq DAILY PO 07/10/24 10:00 07/11/24 09:26 25 MEQ Empaglifozin 10 mg DAILY PO 07/10/24 10:00 07/11/24 09:25 10 MG Examination General Appearance: Overall comfortable , overall weak but improved health. HEENT: Atraumatic Neck: Other (tracheostomy) healthy tracheostomy wound . Lungs: Other (MV sounds) improved Chest/Breasts: Other (one right-sided chest tube; and one left-sided chest tube leaking) Cardiovascular: Regular rate, Normal S1, Normal S2 Abdomen: Normal bowel sounds, Soft Genitourinary: Other (Olsen's) Neuro: while patient is alert, conversant, able to respond to verbal and pain stimuli, week vocals gradually getting better. Psych/Mental Status: Alert, appropriate affect laboratory and microbiology Laboratory Tests 07/11/24 04:53 Test 07/11/24 04:53 Range/Units Serum Glucose 90 74-106 mg/dL Microbiology Date/Time Source Procedure Growth Status 06/29/24 18:08 Bronchial Washings Gram Stain - Final Complete 06/29/24 18:08 Respiratory Culture - Final Pseudomonas aeruginosa Complete 06/28/24 10:30 Chest Gram Stain - Final Complete 06/28/24 10:30 Chest Anaerobic Culture - Final Complete 06/28/24 10:30 Aerobic Culture - Final Pseudomonas aeruginosa Complete 06/25/24 14:45 Pleural Fluid Gram Stain - Final Complete 06/25/24 14:45 Body Fluid Culture - Final Pseudomonas aeruginosa Complete 06/25/24 06:40 Urine - Olsen Port Urine Culture - Final Yeast, not Radha albicans Complete 06/24/24 20:21 Blood Blood Culture - Final NO GROWTH AFTER 5 DAYS OF INCUBATION. Complete Labs and/or images reviewed: Labs reviewed by me, Image(s) reviewed by me Problem List/Assessment/Plan Problem List/Assessment/Plan ICU Course: A 63-year-old male with a history of heart failure with reduced ejection fraction 20%, severe mitral regurgitation, dilated aortic root of 4.9 cm, moderate pulmonary arterial hypertension, pulmonary embolism, congestive heart failure (CHF) and pulmonary embolism was intubated in the ICU. He developed necrotic pressure ulcers and multiorgan failure, large right pleural effusion, right heart strain, right pulmonary artery embolus, leading to a tracheostomy. A chest tube was placed, and a chest CT was performed. Due to low blood pressure, he required Levophed. Initially was on BiPAP, eventually needed intubation, status post trach, now on minimal vent settings. tolerating well x5 days. Patient is much more awake alert and conversant. Voice more stronger and patient passed swallow eval advanced diet from pureed to mechanical soft, added ensure t.i.d., started physical therapy and we will try to start right chest tube weaning trial. Hospitalization day: 54 A. Neurology: #Acute metabolic/toxic encephalopathy in the setting of septic shock, improved. 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 B. Cardiology: # Acute on chronic systolic CHF # heart failure with reduced ejection fraction: Ejection fraction of 20%: 2 g salt restriction, careful fluid management, GDMT started jardiance 10 mg daily as per EMPEROR-Reduced trial. BP softer for other meds. # mild AV calcification # severe mitral regurgitation # dilated aortic root 4.9 cm, stable. # Atrial flutter, currently sinus rhythm: had sync cardioversion on 05/27/24 # Non-sustained Vtach, subsided keep the patient on telemetry, keep K+ >4 mg>2 C. Respiratory: #Acute hypoxic respiratory failure due to Pseudomonas aeruginosa pneumonia, pleural effusions, and pulmonary embolism: [facility], intubated on 05/26/24, reintubation on 06/12/24 due to ETT leak, extubated 06/26/24, tracheostomy tube placed 06/26/24, trach collar trials started on 07/02/2024: next day satisfactory, so will successful full day trach collar>>> we will try 24 hour trach, tolerating well, we will try to wait till the trach matures. #Septic shock due to Pseudomonas aeruginosa pneumonia: Status post IV antibiotics, recheck sputum/secretion from tracheostomy tube, to rule out any residual infection. #Pleural effusions s/p three chest tubes (two on the right; one on the left) right chest tube out, no changes in respiratory status. cxr unremarkable. CT chest satisfactory. Surgical team and pulmonology updated. Repeat CXR NO interval changes. #moderate pulmonary arterial hypertension #large right pulmonary artery embolus #right hydro pneumothorax with right chest tube in-situ. #Moderate left pleural effusion. 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 Olivas/surgery team on board, repeat CT chest shows subcutaneous emphysema no surgical intervention. #Large right pleural effusion: s/p multiple thoracentesis, pt has currently 2 chest tubes & last CT 06/16/24 shows Moderate right pleural fluid collection with near complete collapse of the right lower lobe chest tube in place within the collection. #Right lower lobe atelectasis, mildly improved #Multiple mucus plugs status post multiple bronchoscopies #Pneumonia, community acquired, gram +/-, possible superseded fungal infection: Micafungin for infection #pneumomediastinum, hemodynamically stable #Increased left pneumothorax despite the presence of a left chest tube: Continues to have air leak at -30 of air seal, patient is hemodynamically stable, still continues to have subcutaneous emphysema. No possible solution except surgical management when patient is able to undergo surgical decortication. #Left chest tube dislodgement: surgical consult to management as it was previously managed by Dr. Henry. repeat cxr tomorrow. further plan based on the findings. D. Gastrointestinal: # Transaminitis likely due to sepsis: Improving # Moderate colonic diverticulosis: Without signs of diverticulitis. # Cholelithiasis, without cholecystitis. # nutrition: Glucerna # constipation: On Colace # Swallow eval passed> nutrition started on oral pureed diet. aspiration precautions to continue> changed to mechanical soft diet. # nutrition: Pureed diet, cardiologic modification along with salt restriction, change to we will mechanical soft with high-protein diet, ensure t.i.d. # moderate malnutrition: Dietary consult, continue supplements. E. Genitourinary: Uncomplicated presumably, off of foleys. F. Infectious Disease: # complicated UTI: urine culture reveals Pseudomonas and Enterococcus, appropriately on antibiotics asymptomatic presumably # shock, likely cardiogenic/septic: Negative for hepatitis-B, hepatitis-C, HIV, # Sacral Wound, Unstageable: Status post wound debridement wound care to continue patient on -125 cc of wound VAC in past 24 hour approximately 200 mL of collection likely we will need long-term wound VAC support. Appreciate input of wound care team, q2 hours positions change. # respiratory Pseudomonas infection: Status post Zerbaxa pending repeat respiratory Pseudomonas culture to determine fate of further IV antibiotics. G. Hematology & Oncology: # anemia, normocytic, severe: s/p 1 unit of PRBC transfusion, H&H stable # coagulopathy likely due to sepsis, no active bleeding noted presumably. # thrombocytopenia: Improved H. Nephrology: renal function satisfactory: Urine output appropriate # Hypernatremia, corrected # Hyperkalemia, corrected # hypokalemia , Corrected # RADHA likely due to vasomotor nephropathy, improved monitor BMP closely # metabolic alkalosis with respiratory alkalosis, improved # hypophosphatemia, corrected I. Endocrine: # prediabetic with HbA1c of 6.1 J. MSK: # ICU myopathy: Low muscle mass extremely weak, we will need probably extensive physical therapy and support. Start aggressive in-hospital physiotherapy, PT consulted. Appreciate input. We will look for any further modification or discharge planning to LTAC. Fall precautions in place. Added Trapeze bar to beds to improve upper body functional status. K. Prophylaxis: PPI: Pantoprazole dc now DVT: SCDs L. Lines & Drains (with insertion date): PICC line 06/17/24 Left subclavian CVC line 06/05/24, removed 06/17/24 Right femoral A-line 06/03/24, discontinued 06/24/2024 Olsen catheter 05/21/24 right Arterial line 06/26/23 N. Disposition: Remains in [facility], Advance discharge planning with wound vac with social work started. SW consulted input appreciate. Advance placement planning for LTAC if patient remains hemodynamically stable afterwards. The plan was discussed with the ICU attending Dr. Clayton. The patient care consists of total 59 minutes of critical care time excluding the procedures. Dictated by Jose Francisco Gamino MD with 3M MModal Fluency. Plan discussed with: Patient, Other My Orders My Orders Orders - JOSE FRANCISCO GAMINO RESIDENT Procedure Category Date Status Time Trapeze Bar On Bed TONY 07/10/24 In Process 15:42 * Surgical Consult CONS 07/10/24 Transmitted Dietary Evaluation Review Comments: 1. consider Renal Specific 70g protein restriction witn 2GNa, 3K, low Phos, if no diaylsis needed. 2. consider Renal Standard 2gn, 3K, low phosphate diet if Pt is on dialysis. 3. encourage and monitor po intake to meet 75% of his needs. Expected Outcomes/Goals: avoid uremic symptoms, gradual healed wounds. Laboratory Results Laboratory Tests 07/11/24 04:53 Chemistry Test 07/11/24 04:53 Albumin 2.0 g/dL (3.2-4.8) L Calcium Level 7.8 mg/dL (8.7-10.4) L Total Protein 4.9 g/dL (5.7-8.2) L LFT Test 07/11/24 04:53 Alanine Aminotransferase (ALT) 16 U/L (7-40) Alkaline Phosphatase 130 U/L (46-116) H Aspartate Amino Transferase (AST) 21 U/L (13-40) Total Bilirubin 1.4 mg/dL (0.2-1.0) H Urinalysis Test 05/19/24 10:08 07/10/24 15:28 Urine WBC 3 /hpf (0 - 3) Urine Color Light-yellow (Yellow) Urine Clarity Turbid (Clear) H Urine pH 5.0 (5.0-9.0) Urine Specific [place] 1.012 (1.001-1.035) Urine Protein Trace (Negative) H Urine Ketones Negative (Negative) Urine Blood Trace /uL (Negative) H Urine Nitrite Negative (Negative) Urine Bilirubin Negative (Negative) Urine Urobilinogen Normal mg/dL (Negative) Urine Leukocyte Esterase Negative /uL (Negative) Urine RBC None seen /hpf (0 - 3) Urine Microscopic WBC 2 /HPF (0-3) Urine Squamous Epithelial Cells None seen /hpf (<5) Urine Bacteria Few /hpf (None Seen) H Urine Hyaline Casts Few /lpf (0 - 2) Urine Mucus Few (None Seen) Urine Yeast (Budding) Loaded /hpf (None Seen) Urine Glucose 4+ mg/dL (Normal) H Microbiology Microbiology Date/Time Source Procedure Growth Status 06/29/24 18:08 Bronchial Washings Gram Stain - Final Complete 06/29/24 18:08 Respiratory Culture - Final Pseudomonas aeruginosa Complete 06/28/24 10:30 Chest Gram Stain - Final Complete 06/28/24 10:30 Chest Anaerobic Culture - Final Complete 06/28/24 10:30 Aerobic Culture - Final Pseudomonas aeruginosa Complete 06/25/24 14:45 Pleural Fluid Gram Stain - Final Complete 06/25/24 14:45 Body Fluid Culture - Final Pseudomonas aeruginosa Complete 06/25/24 06:40 Urine - Olsen Port Urine Culture - Final Yeast, not Radha albicans Complete 06/24/24 20:21 Blood Blood Culture - Final NO GROWTH AFTER 5 DAYS OF INCUBATION. Complete Date of Service: Jul 11, 2024 Billing Provider: TIFFANY CLAYTON MD Common Visit Codes: [id number] CARE 30-74 MIN JOSE FRANCISCO GAMINO RESIDENT Jul 11, 2024 10:37 TIFFANY CLAYTON MD Jul 14, 2024 15:34
--- NOTE | 2024-07-11 12:03 | DVHPN2 ---
Progress Note - Dictate Date Seen: Jul 11, 2024 Has the PT tested + for MRSA If YES, has PT been informed?: No Medical Necessity Reason Pt with a Central, PICC or Fol: No The following are medically ne: Central Line, Olsen Catheter Reason for olsen catheter: Strict I&O Subjective PT WITH SS COMPLEX INCRESEING SOB HARVEY LE EDEMA HFrEF CHRONIC AND ACUTE NOW WITH HEMOPTYSIS TACHYCARDIA CTA LUNG C/W PE ACUTE vital signs Vital Sign Date Time Temp Pulse Resp B/P (MAP) Pulse Ox O2 Delivery O2 Flow Rate FiO2 07/11/24 11:51 88 14 100 07/11/24 11:51 Room Air 0.0 07/11/24 11:51 21 07/11/24 11:00 103/44 (63) 07/11/24 08:00 97.9 97.9 Total Intake and Output 07/10/24 07/10/24 07/11/24 15:00 23:00 07:00 Intake Total 183.75 ml 721.25 ml 240 ml Output Total 1440 ml 770 ml Balance 183.75 ml -718.75 ml -530 ml medications Current Medications Medications Dose Ordered Sig/Amy Route Start Time Stop Time Status Last Admin Dose Admin Potassium Chloride 100 ml @ 50 mls/hr Q2H IV 05/27/24 17:15 05/28/24 01:14 UNV Acetaminophen 650 mg Q6HP PRN PO 05/31/24 19:30 07/05/24 05:13 650 MG Potassium Chloride 100 ml @ 50 mls/hr Q2H IV 06/13/24 12:45 06/13/24 16:44 UNV Magnesium Sulfate/ Dextrose 100 ml @ 100 mls/hr Q1HR IV 06/13/24 13:00 06/13/24 14:59 UNV Cefepime HCl 50 ml @ 12.5 mls/hr Q8HR IV 06/13/24 14:00 UNV Sodium Chloride 10 ml QSHIFT@10,22 IV 06/17/24 22:00 07/11/24 09:26 10 ML Amiodarone HCl 200 mg DAILY PO 06/26/24 13:30 07/11/24 09:25 200 MG Albuterol 2.5 mg Q6HR NEB 06/29/24 12:40 07/11/24 11:51 2.5 MG Ipratropium [place] 0.5 mg Q6HR NEB 06/29/24 12:41 07/11/24 11:51 0.5 MG Acetylcysteine 200 mg Q6HR NEB 06/29/24 12:41 07/11/24 11:51 200 MG Morphine Sulfate 2 mg Q4HPRN PRN IV 07/04/24 13:00 07/08/24 01:13 2 MG Alprazolam 0.25 mg TIDPRN PRN PO 07/05/24 14:00 Acetaminophen/ Hydrocodone Bitart 2 tab Q6HPRN PRN PO 07/09/24 12:15 UNV Acetaminophen/ Hydrocodone Bitart 1 tab Q6HPRN PRN PO 07/09/24 13:00 07/11/24 07:57 1 TAB Enteral Nutritional Formula 240 ml TIDWM PO 07/09/24 18:00 07/11/24 08:07 240 ML Furosemide 20 mg DAILY PO 07/10/24 10:00 07/11/24 09:25 20 MG Potassium Bicarbonate 25 meq DAILY PO 07/10/24 10:00 07/11/24 09:26 25 MEQ Empaglifozin 10 mg DAILY PO 07/10/24 10:00 07/11/24 09:25 10 MG objective PUL DIFF RHONCHI JVD [place] OF [place] CV RR PMI DIFFUSE EXT 3+ EDEMA laboratory and microbiology Laboratory Tests 07/11/24 04:53 Test 07/11/24 04:53 Range/Units Serum Glucose 90 74-106 mg/dL Problem List SS COMPLEX INCRESEING SOB HARVEY LE EDEMA HFrEF CHRONIC AND ACUTE EF < 20% NOW WITH HEMOPTYSIS TACHYCARDIA CTA LUNG C/W PE 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 Large filling defect right pulmonary artery consistent with pulmonary embolus. No film findings of pulmonary artery hypertension. No pulmonary emboli noted on the left. 2. Findings are also suggestive of right heart strain. 3. Large right pleural effusion. HEPARIN DRIP\ LASIX DRIP WILL START ORAL ANTICOAGULATION IN 48 HOURS ABX LE ARTERIAL DOPPLER NO SIGNIFICANT DISEASE FOR LIMB RISK DC HEPARIN START ELIQUIS S/P CT HEAD CURRENTLY ON BiPAP IMPROVING RESP STATUS 7.32/59/69 TITRATE BIPAP THORACENTESIS ULTRASOUND GUIDED MRI OF ABD S/P THORACENTESIS 2200 CC DRAINED CXR BILATERAL INFILTRATE PROMINENT MEDIASTINUM CARDIOMEGALY HYPOKALEMIA BEING CORRECTED A FLUTTER S/P CARDIOVERSION SINUS RHYTHM TITRATE OFF LEVOPHED USE ALBUMIN FOR PRESSURE SPORT DC LASIX DRIP START D5 1/4 NS AT 125 CC/HR BMP/ BNP DAILY cont volume replacement contraction alkalosis leukocytosis improved monitor h/h HYPERNATREMIA IMPROVING DIAMOX X 1 DOSE tracheostomy awake alert increase nutritional supplementy testosterone HYPERNATREMIA CORRECTED DC IV FLUID CONT TPN INCREASE VENT SETTING TO AC 22 EPISODE OF [place] CORRECT ACIDOSIS MAG SO4 2 G TITRATE OFF LEVOPHED DIAMOX TREAT METABOLIC ALKALOSIS RESP ACIDOSIS START TITRATING OFF SEDATION IMPROVED RESP PARAMETERS LIVER ENZYMES STILL ELEVATED wean off sedation CORRECT HYPERNATREMIA CHECK BNP AICD IMPLANTATION PT DEVELOPED PNEUMOTHORAX DELAYING EXTUBATION PNEUMOTHORAX IMPROVED LEUKOCYTOSIS AGAIN ELECTROLYTES BETTER NOW CXR CONSISTENT WITH CHF CORRECT K AND Mg CHANGE ABX VANCO AND AZTREONAM EPOGEN IRON DC ELIQUIS START LOVENOX WBC CONTINUES TO INCREASE NEEDS SURGICAL DEBRIDEMENT OF DECUB CXR WORSENING EFFUSION AND FLUID OVERLOAD START LASIX DRIP CXR CONSISTENT WITH MULTIFOCAL CONSOLIDATION EXCELLENT DIURESIS WITH LASIX DRIP MONITOR FLUID STATUS NEEDS DEBRIDEMENT OF DECUB WITH PERSISTENT LEUKOCYTOSIS CONSIDER BRONCHOSCOPY TO CLEAR CONSOLIDATION/ MUCUS CXR WORSENING LEFT SIDED EFFUSION/ INFILTRATE LEUKOCYTOSIS WORSENING DESPITE WOUND DEBRIDEMENT RECOMMEND BRONCHOSCOPY S/P DEBRIDEMENT OF STAGE IV DECUB WOUND POSITIVE FOR PSEUDOMONAS/ ENTEROCOCCUS URINE YEAST LEUKOCYTOSIS TRENDING DOWN CHECK CXR CHECK BNP CORRECT K PROGRESSIVE ANEMIA NEEDS ANTICOAGULATION FOR PE CONSIDER BRONCHOSCOPY WORSENING WBC IMPROVING WBC SEVERE ANEMIA START IRON WITH EPOGEN METABOLIC ALKALOSIS AGAIN DIAMOX CXR BETTER AERATION ON THE LEFT SIDED ONE DOSE OF IRON GIVEN ONE DOSE OF EPOGEN LEUKOCYTOSIS IMPROVING CHECK UA DIAMOX FOR WORSENING METABOLIC ALKALOSIS DECREASE REP RATE FOR RESP ALKALOSIS IRON STUDY FROM 06/21/24 LOW SERUM IRON LOW TIBC FERRITIN HIGH SECONDARY TO BEING ACUTE PHASE REACTANT S/P TRACHEOSTOMY NOW PT REQUIRES 2 UNITS OF PRBC CHECK UA CBC IN AM BNP IN AM ABG PT AWAKE STILL WITH PNEUMOTHORAX ABG BETTER DC PEEP TRANSFUSE PRBC EPOGEN AND IRON UA TODAY MONITOR Mg SULFATE 2 MG/IV UA NEGATIVE POGRESSIVE ANEMIA ANEMIA OF CHRONIC ILLNESS CHECK RETIC EPOGEN TESTOSTERONE Dietary Evaluation Review Comments: 1. consider Renal Specific 70g protein restriction witn 2GNa, 3K, low Phos, if no diaylsis needed. 2. consider Renal Standard 2gn, 3K, low phosphate diet if Pt is on dialysis. 3. encourage and monitor po intake to meet 75% of his needs. Expected Outcomes/Goals: avoid uremic symptoms, gradual healed wounds. Plan discussed with: Patient, Spouse Critical Care Time(min): 35 ISSAC SHAH MD Jul 11, 2024 12:03
[2024-07-11] MEDS ORDERED: PATIENTS OWN MEDICATION (EPOGEN 10,000 UNITS) SUBCUT ONE (12:15)
[2024-07-11] MEDS: TESTOSTERONE CYPIONATE 200 MG/ML 1ML VIAL IM ONE (12:40)
[2024-07-12] VITALS (32 sets, daily range): BP systolic 84–170; BP diastolic 43–76; PULSE 73–97; RESP 10–26; TEMP 97.8–98.5; O2SAT 88–100
[2024-07-12] MEDS ORDERED: AMIODARONE 360mg/200mL PREMIX 200 ML IV SCH (04:00)
--- NOTE | 2024-07-12 09:50 | DVHPNRES ---
Progress Note Date Seen: Jul 12, 2024 Resident Creating Document: JOSE FRANCISCO GAMINO RESIDENT Has the PT tested + for MRSA If YES, has PT been informed?: No Medical Necessity Reason Pt with a Central, PICC or Fol: No The following are medically ne: Central Line, Olsen Catheter Reason for olsen catheter: Strict I&O Objective vital signs Vital Sign Date Time Temp Pulse Resp B/P (MAP) Pulse Ox O2 Delivery O2 Flow Rate FiO2 07/12/24 08:00 97.8 83 18 101/54 (70) 99 97.8 07/12/24 08:00 Room Air* 0 21 Total Intake and Output 07/11/24 07/11/24 07/12/24 15:00 23:00 07:00 Intake Total 600 ml 24 ml Output Total 800 ml 300 ml Balance -200 ml -276 ml medications Current Medications Medications Dose Ordered Sig/Amy Route Start Time Stop Time Status Last Admin Dose Admin Potassium Chloride 100 ml @ 50 mls/hr Q2H IV 05/27/24 17:15 05/28/24 01:14 UNV Acetaminophen 650 mg Q6HP PRN PO 05/31/24 19:30 07/05/24 05:13 650 MG Potassium Chloride 100 ml @ 50 mls/hr Q2H IV 06/13/24 12:45 06/13/24 16:44 UNV Magnesium Sulfate/ Dextrose 100 ml @ 100 mls/hr Q1HR IV 06/13/24 13:00 06/13/24 14:59 UNV Cefepime HCl 50 ml @ 12.5 mls/hr Q8HR IV 06/13/24 14:00 UNV Sodium Chloride 10 ml QSHIFT@10,22 IV 06/17/24 22:00 07/12/24 08:58 10 ML Albuterol 2.5 mg Q6HR NEB 06/29/24 12:40 07/12/24 07:03 2.5 MG Ipratropium [place] 0.5 mg Q6HR NEB 06/29/24 12:41 07/12/24 07:03 0.5 MG Acetylcysteine 200 mg Q6HR NEB 06/29/24 12:41 07/12/24 07:03 200 MG Morphine Sulfate 2 mg Q4HPRN PRN IV 07/04/24 13:00 07/11/24 23:43 2 MG Alprazolam 0.25 mg TIDPRN PRN PO 07/05/24 14:00 Acetaminophen/ Hydrocodone Bitart 2 tab Q6HPRN PRN PO 07/09/24 12:15 UNV Acetaminophen/ Hydrocodone Bitart 1 tab Q6HPRN PRN PO 07/09/24 13:00 07/11/24 07:57 1 TAB Enteral Nutritional Formula 240 ml TIDWM PO 07/09/24 18:00 07/12/24 08:29 240 ML Furosemide 20 mg DAILY PO 07/10/24 10:00 07/11/24 09:25 20 MG Potassium Bicarbonate 25 meq DAILY PO 07/10/24 10:00 07/11/24 09:26 25 MEQ Examination General Appearance: Overall comfortable , overall weak but improved health. HEENT: Atraumatic Neck: Other (tracheostomy) healthy tracheostomy wound . Lungs: Other (MV sounds) improved Chest/Breasts: Other (one right-sided chest tube; and one left-sided chest tube leaking) Cardiovascular: Regular rate, Normal S1, Normal S2 Abdomen: Normal bowel sounds, Soft Genitourinary: Other (Olsen's out) Neuro: while patient is alert, conversant, able to respond to verbal and pain stimuli, week vocals gradually getting better. Psych/Mental Status: Alert, appropriate affect laboratory and microbiology Laboratory Tests 07/11/24 04:53 Test 07/11/24 04:53 Range/Units Serum Glucose 90 74-106 mg/dL Microbiology Date/Time Source Procedure Growth Status 06/29/24 18:08 Bronchial Washings Gram Stain - Final Complete 06/29/24 18:08 Respiratory Culture - Final Pseudomonas aeruginosa Complete 06/28/24 10:30 Chest Gram Stain - Final Complete 06/28/24 10:30 Chest Anaerobic Culture - Final Complete 06/28/24 10:30 Aerobic Culture - Final Pseudomonas aeruginosa Complete 06/25/24 14:45 Pleural Fluid Gram Stain - Final Complete 06/25/24 14:45 Body Fluid Culture - Final Pseudomonas aeruginosa Complete 06/25/24 06:40 Urine - [place] Urine Culture - Final Yeast, not Radha albicans Complete 06/24/24 20:21 Blood Blood Culture - Final NO GROWTH AFTER 5 DAYS OF INCUBATION. Complete Labs and/or images reviewed: Labs reviewed by me, Image(s) reviewed by me Problem List/Assessment/Plan Problem List/Assessment/Plan ICU Course: A 63-year-old male with a history of heart failure with reduced ejection fraction 20%, severe mitral regurgitation, dilated aortic root of 4.9 cm, moderate pulmonary arterial hypertension, pulmonary embolism, congestive heart failure (CHF) and pulmonary embolism was intubated in the ICU. He developed necrotic pressure ulcers and multiorgan failure, large right pleural effusion, right heart strain, right pulmonary artery embolus, leading to a tracheostomy. A chest tube was placed, and a chest CT was performed. Due to low blood pressure, he required Levophed. Initially was on BiPAP, eventually needed intubation, status post trach, now on minimal vent settings. tolerating well x5 days. Patient is much more awake alert and conversant. Voice more stronger and patient passed swallow eval advanced diet from pureed to mechanical soft, added ensure t.i.d., started physical therapy and we will try to start right chest tube weaning trial. Hospitalization day: 55 A. Neurology: AAO x 4 conversant. #Acute metabolic/toxic encephalopathy in the setting of septic shock, improved. 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 B. Cardiology: # Acute on chronic systolic CHF exacerabation # heart failure with reduced ejection fraction: Ejection fraction of 20%: 2 g salt restriction, careful fluid management, GDMT started jardiance 10 mg daily as per EMPEROR-Reduced trial. BP softer for other Meds. # mild AV calcification # severe mitral regurgitation # dilated aortic root 4.9 cm, stable. # Atrial flutter, currently sinus rhythm: had sync cardioversion on 05/27/24 # Non-sustained Vtach, subsided keep the patient on telemetry, keep K+ >4 mg>2 C. Respiratory: #Acute hypoxic respiratory failure due to Pseudomonas aeruginosa pneumonia, pleural effusions, and pulmonary embolism: [facility], intubated on 05/26/24, reintubation on 06/12/24 due to ETT leak, extubated 06/26/24, tracheostomy tube placed 06/26/24, trach collar trials started on 07/02/2024: next day satisfactory, so will successful full day trach collar>>> we will try 24 hour trach, tolerating well, we will try to wait till the trach matures. #Septic shock due to Pseudomonas aeruginosa pneumonia: Status post IV antibiotics, recheck sputum/secretion from tracheostomy tube, to rule out any residual infection. #Pleural effusions s/p three chest tubes (two on the right; one on the left) right chest tube out, no changes in respiratory status. cxr unremarkable. CT chest satisfactory. Surgical team and pulmonology updated. Repeat CXR NO interval changes. #moderate pulmonary arterial hypertension #large right pulmonary artery embolus #right hydro pneumothorax with right chest tube in-situ. #Moderate left pleural effusion. 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 Olivas/surgery team on board, repeat CT chest shows subcutaneous emphysema no surgical intervention. #Large right pleural effusion: s/p multiple thoracentesis, pt has currently 2 chest tubes & last CT 06/16/24 shows Moderate right pleural fluid collection with near complete collapse of the right lower lobe chest tube in place within the collection. #Right lower lobe atelectasis, mildly improved #Multiple mucus plugs status post multiple bronchoscopies #Pneumonia, community acquired, gram +/-, possible superseded fungal infection: Micafungin for infection #pneumomediastinum, hemodynamically stable #Increased left pneumothorax despite the presence of a left chest tube: Continues to have air leak at -30 of air seal, patient is hemodynamically stable, still continues to have subcutaneous emphysema. No possible solution except surgical management when patient is able to undergo surgical decortication. #Left chest tube dislodgement: surgical consult to management as it was previously managed by Dr. Henry. repeat cxr tomorrow. further plan based on the findings. D. Gastrointestinal: # Transaminitis likely due to sepsis: Improving # Moderate colonic diverticulosis: Without signs of diverticulitis. # Cholelithiasis, without cholecystitis. # nutrition: Glucerna # constipation: On Colace # Swallow eval passed> nutrition started on oral pureed diet. aspiration precautions to continue> changed to mechanical soft diet. # nutrition: Pureed diet, cardiologic modification along with salt restriction, change to we will mechanical soft with high-protein diet, ensure t.i.d. # moderate malnutrition: Dietary consult, continue supplements. E. Genitourinary: Uncomplicated presumably, off of Olsen. F. Infectious Disease: # complicated UTI: urine culture reveals Pseudomonas and Enterococcus, appropriately on antibiotics asymptomatic presumably # shock, likely cardiogenic/septic: Negative for hepatitis-B, hepatitis-C, HIV, # Sacral Wound, Unchangeable: Status post wound debridement wound care to continue patient on -125 cc of wound VAC in past 24 hour approximately 200 mL of collection likely we will need long-term wound VAC support. Appreciate input of wound care team, q2 hours positions change. # respiratory Pseudomonas infection: Status post Zerbaxa pending repeat respiratory Pseudomonas culture to determine fate of further IV antibiotics. G. Hematology & Oncology: # anemia, normocytic, severe: s/p 1 unit of PRBC transfusion, H&H stable # coagulopathy likely due to sepsis, no active bleeding noted presumably. # thrombocytopenia: Improved H. Nephrology: renal function satisfactory: Urine output appropriate # Hypernatremia, corrected # Hyperkalemia, corrected # hypokalemia , Corrected # RADHA likely due to vasomotor nephropathy, improved monitor BMP closely # metabolic alkalosis with respiratory alkalosis, improved # hypophosphatemia, corrected I. Endocrine: # prediabetic with HbA1c of 6.1 J. MSK: # ICU myopathy: Low muscle mass extremely weak, we will need probably extensive physical therapy and support. Start aggressive in-hospital physiotherapy, PT consulted. Appreciate input. We will look for any further modification or discharge planning to LTAC. Fall precautions in place. Added Trapeze bar to beds to improve upper body functional status. K. Prophylaxis: PPI: Pantoprazole dc now DVT: SCDs L. Lines & Drains (with insertion date): PICC line 06/17/24 Left subclavian CVC line 06/05/24, removed 06/17/24 Right femoral A-line 06/03/24, discontinued 06/24/2024 Olsen catheter 05/21/24, removed. right Arterial line 06/26/23. removed. N. Disposition: Remains in [facility], Advance discharge planning with wound vac with social work started and discharge planning. Updated Fiance: Melissa Jones over phone. Advance placement planning for LTAC sent to [facility] and [facility]. Waiting for further confirmation of placement. Continue PT in the mean time. The plan was discussed with the ICU attending Dr. Greg Shah. The patient care consists of total 81 minutes of critical care time excluding the procedures. Dictated by Jose Francisco Gamino MD with 3M MModal Fluency. Plan discussed with: Patient, Other Dietary Evaluation Review Comments: 1. consider Renal Specific 70g protein restriction witn 2GNa, 3K, low Phos, if no diaylsis needed. 2. consider Renal Standard 2gn, 3K, low phosphate diet if Pt is on dialysis. 3. encourage and monitor po intake to meet 75% of his needs. Expected Outcomes/Goals: avoid uremic symptoms, gradual healed wounds. Labs/Diagnostic Data Microbiology Date/Time Source Procedure Growth Status 06/29/24 18:08 Bronchial Washings Gram Stain - Final Complete 06/29/24 18:08 Respiratory Culture - Final Pseudomonas aeruginosa Complete 06/28/24 10:30 Chest Gram Stain - Final Complete 06/28/24 10:30 Chest Anaerobic Culture - Final Complete 06/28/24 10:30 Aerobic Culture - Final Pseudomonas aeruginosa Complete 06/25/24 14:45 Pleural Fluid Gram Stain - Final Complete 06/25/24 14:45 Body Fluid Culture - Final Pseudomonas aeruginosa Complete 06/25/24 06:40 Urine - [place] Urine Culture - Final Yeast, not Radha albicans Complete 06/24/24 20:21 Blood Blood Culture - Final NO GROWTH AFTER 5 DAYS OF INCUBATION. Complete JOSE FRANCISCO GAMINO RESIDENT Jul 12, 2024 09:50
--- NOTE | 2024-07-12 10:19 | DVH ---
CHEST RADIOGRAPH Indication: CHEST TUBE Technique: Frontal view of the chest. Comparison: XY CHEST PORTABLE on DOS: 07/10/24, XY CHEST PORTABLE on DOS: 07/09/24, XY CHEST PORTABLE o n DOS: 07/05/24, XY CHEST PORTABLE on DOS: 07/05/24, XY CHEST PORTABLE on DOS: 07/04/24, XY CHEST PORTAB LE on DOS: 07/10/24 FINDINGS: LUNGS AND PLEURAL SPACES: Stable left-sided pneumothorax. Stable right basilar pneumothorax. HEART: Cardiomegaly with mild congestion. MEDIASTINUM: Unremarkable. Normal mediastinal contour. BONES/JOINTS: Unremarkable. No acute fracture. TUBES, LINES AND DEVICES: Stable tubes and lines. IMPRESSION: 1. Stable left-sided pneumothorax. Stable right basilar pneumothorax. 2. Cardiomegaly with mild congestion.
[2024-07-12 10:31] LABS: Basophils # (auto) 0.1 10 ^3/uL (0-0.2); Basophils % (auto) 0.7 % (0.0-2.0); Eosinophils # (auto) 0.1 10 ^3/uL (0-0.8); Eosinophils % (auto) 1.2 % (0.0-7.0); Hematocrit 30.6 % (41.0-53.0); Hemoglobin 9.9 g/dL (13.5-17.5); Lymphocytes # (auto) 1.6 10 ^3/uL (0.4-5.4); Lymphocytes % (auto) 20.9 % (10.0-50.0); Mean Corpuscular Hemoglobin 28.1 pg (28.0-32.0); Mean Corpuscular Hgb Conc. 32.5 g/dL (32.0-36.0); Mean Corpuscular Volume 86.5 fL (80.0-100.0); Monocytes # (auto) 0.5 10 ^3/uL (0-1.3); Neutrophils # (auto) 5.5 10 ^3/uL (1.6-8.6); Neutrophils % (auto) 70.2 % (37.0-80.0); Nucleated Red Blood Cells % 0.2 %; Platelet Count (auto) 286 10^3/uL (140-450); Red Blood Cells 3.54 10^6/uL (4.5-5.90); Red Cell Distribution Width 20.2 % (11.8-14.3); White Blood Cell 7.9 10^3/uL (4.4-10.8)
[2024-07-12 10:53] LABS: Anion Gap 5 (5-15); Carbon Dioxide 28 mmol/L (20-31); Chloride 104 mmol/L (98-107); Potassium 4.6 mmol/L (3.5-5.1); Sodium 137 mmol/L (136-145)
[2024-07-12 11:00] LABS: BUN/Creatinine Ratio 26.3 (10.0-20.0); Blood Urea Nitrogen 15 mg/dL (9-23)
[2024-07-12 11:01] LABS: Glucose 120 mg/dL (74-106)
--- NOTE | 2024-07-12 14:26 | DVHPN2 ---
Progress Note - Dictate Date Seen: Jul 12, 2024 Has the PT tested + for MRSA If YES, has PT been informed?: No Medical Necessity Reason Pt with a Central, PICC or Fol: No The following are medically ne: Central Line, Olsen Catheter Reason for olsen catheter: Strict I&O Subjective PT WITH SS COMPLEX INCRESEING SOB HARVEY LE EDEMA HFrEF CHRONIC AND ACUTE NOW WITH HEMOPTYSIS TACHYCARDIA CTA LUNG C/W PE ACUTE vital signs Vital Sign Date Time Temp Pulse Resp B/P (MAP) Pulse Ox O2 Delivery O2 Flow Rate FiO2 07/12/24 12:00 97.9 85 18 84/43 (57) 94 97.9 07/12/24 12:00 Room Air* 0 21 Total Intake and Output 07/11/24 07/11/24 07/12/24 15:00 23:00 07:00 Intake Total 600 ml 24 ml Output Total 800 ml 300 ml Balance -200 ml -276 ml medications Current Medications Medications Dose Ordered Sig/Amy Route Start Time Stop Time Status Last Admin Dose Admin Potassium Chloride 100 ml @ 50 mls/hr Q2H IV 05/27/24 17:15 05/28/24 01:14 UNV Acetaminophen 650 mg Q6HP PRN PO 05/31/24 19:30 07/05/24 05:13 650 MG Potassium Chloride 100 ml @ 50 mls/hr Q2H IV 06/13/24 12:45 06/13/24 16:44 UNV Magnesium Sulfate/ Dextrose 100 ml @ 100 mls/hr Q1HR IV 06/13/24 13:00 06/13/24 14:59 UNV Cefepime HCl 50 ml @ 12.5 mls/hr Q8HR IV 06/13/24 14:00 UNV Sodium Chloride 10 ml QSHIFT@10,22 IV 06/17/24 22:00 07/12/24 08:58 10 ML Albuterol 2.5 mg Q6HR NEB 06/29/24 12:40 07/12/24 11:00 2.5 MG Ipratropium [place] 0.5 mg Q6HR NEB 06/29/24 12:41 07/12/24 11:00 0.5 MG Acetylcysteine 200 mg Q6HR NEB 06/29/24 12:41 07/12/24 11:00 200 MG Morphine Sulfate 2 mg Q4HPRN PRN IV 07/04/24 13:00 07/11/24 23:43 2 MG Alprazolam 0.25 mg TIDPRN PRN PO 07/05/24 14:00 Acetaminophen/ Hydrocodone Bitart 2 tab Q6HPRN PRN PO 07/09/24 12:15 UNV Acetaminophen/ Hydrocodone Bitart 1 tab Q6HPRN PRN PO 07/09/24 13:00 07/12/24 10:42 1 TAB Enteral Nutritional Formula 240 ml TIDWM PO 07/09/24 18:00 07/12/24 08:29 240 ML Furosemide 20 mg DAILY PO 07/10/24 10:00 07/11/24 09:25 20 MG Potassium Bicarbonate 25 meq DAILY PO 07/10/24 10:00 07/12/24 10:24 25 MEQ objective PUL DIFF RHONCHI JVD [place] CV RR PMI DIFFUSE EXT 3+ EDEMA laboratory and microbiology Laboratory Tests 07/12/24 10:09 Test 07/12/24 10:09 Range/Units Serum Glucose 120 H 74-106 mg/dL Problem List SS COMPLEX INCRESEING SOB HARVEY LE EDEMA HFrEF CHRONIC AND ACUTE EF < 20% NOW WITH HEMOPTYSIS TACHYCARDIA CTA LUNG C/W PE 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 Large filling defect right pulmonary artery consistent with pulmonary embolus. No film findings of pulmonary artery hypertension. No pulmonary emboli noted on the left. 2. Findings are also suggestive of right heart strain. 3. Large right pleural effusion. HEPARIN DRIP\ LASIX DRIP WILL START ORAL ANTICOAGULATION IN 48 HOURS ABX LE ARTERIAL DOPPLER NO SIGNIFICANT DISEASE FOR LIMB RISK DC HEPARIN START ELIQUIS S/P CT HEAD CURRENTLY ON BiPAP IMPROVING RESP STATUS 7.32/59/69 TITRATE BIPAP THORACENTESIS ULTRASOUND GUIDED MRI OF ABD S/P THORACENTESIS 2200 CC DRAINED CXR BILATERAL INFILTRATE PROMINENT MEDIASTINUM CARDIOMEGALY HYPOKALEMIA BEING CORRECTED A FLUTTER S/P CARDIOVERSION SINUS RHYTHM TITRATE OFF LEVOPHED USE ALBUMIN FOR PRESSURE SPORT DC LASIX DRIP START D5 1/4 NS AT 125 CC/HR BMP/ BNP DAILY cont volume replacement contraction alkalosis leukocytosis improved monitor h/h HYPERNATREMIA IMPROVING DIAMOX X 1 DOSE tracheostomy awake alert increase nutritional supplementy testosterone HYPERNATREMIA CORRECTED DC IV FLUID CONT TPN INCREASE VENT SETTING TO AC 22 EPISODE OF VT CORRECT ACIDOSIS MAG SO4 2 G TITRATE OFF LEVOPHED DIAMOX TREAT METABOLIC ALKALOSIS RESP ACIDOSIS START TITRATING OFF SEDATION IMPROVED RESP PARAMETERS LIVER ENZYMES STILL ELEVATED wean off sedation CORRECT HYPERNATREMIA CHECK BNP AICD IMPLANTATION PT DEVELOPED PNEUMOTHORAX DELAYING EXTUBATION PNEUMOTHORAX IMPROVED LEUKOCYTOSIS AGAIN ELECTROLYTES BETTER NOW CXR CONSISTENT WITH CHF CORRECT K AND Mg CHANGE ABX VANCO AND AZTREONAM EPOGEN IRON DC ELIQUIS START LOVENOX WBC CONTINUES TO INCREASE NEEDS SURGICAL DEBRIDEMENT OF DECUB CXR WORSENING EFFUSION AND FLUID OVERLOAD START LASIX DRIP CXR CONSISTENT WITH MULTIFOCAL CONSOLIDATION EXCELLENT DIURESIS WITH LASIX DRIP MONITOR FLUID STATUS NEEDS DEBRIDEMENT OF DECUB WITH PERSISTENT LEUKOCYTOSIS CONSIDER BRONCHOSCOPY TO CLEAR CONSOLIDATION/ MUCUS CXR WORSENING LEFT SIDED EFFUSION/ INFILTRATE LEUKOCYTOSIS WORSENING DESPITE WOUND DEBRIDEMENT RECOMMEND BRONCHOSCOPY S/P DEBRIDEMENT OF STAGE IV DECUB WOUND POSITIVE FOR PSEUDOMONAS/ ENTEROCOCCUS URINE YEAST LEUKOCYTOSIS TRENDING DOWN CHECK CXR CHECK BNP CORRECT K PROGRESSIVE ANEMIA NEEDS ANTICOAGULATION FOR PE CONSIDER BRONCHOSCOPY WORSENING WBC IMPROVING WBC SEVERE ANEMIA START IRON WITH EPOGEN METABOLIC ALKALOSIS AGAIN DIAMOX CXR BETTER AERATION ON THE LEFT SIDED ONE DOSE OF IRON GIVEN ONE DOSE OF EPOGEN LEUKOCYTOSIS IMPROVING CHECK UA DIAMOX FOR WORSENING METABOLIC ALKALOSIS DECREASE REP RATE FOR RESP ALKALOSIS IRON STUDY FROM 06/21/24 LOW SERUM IRON LOW TIBC FERRITIN HIGH SECONDARY TO BEING ACUTE PHASE REACTANT S/P TRACHEOSTOMY NOW PT REQUIRES 2 UNITS OF PRBC CHECK UA CBC IN AM BNP IN AM ABG PT AWAKE STILL WITH PNEUMOTHORAX ABG BETTER DC PEEP TRANSFUSE PRBC EPOGEN AND IRON UA TODAY MONITOR Mg SULFATE 2 MG/IV UA NEGATIVE POGRESSIVE ANEMIA ANEMIA OF CHRONIC ILLNESS CHECK RETIC EPOGEN TESTOSTERONE Dietary Evaluation Review Comments: 1. consider Renal Specific 70g protein restriction witn 2GNa, 3K, low Phos, if no diaylsis needed. 2. consider Renal Standard 2gn, 3K, low phosphate diet if Pt is on dialysis. 3. encourage and monitor po intake to meet 75% of his needs. Expected Outcomes/Goals: avoid uremic symptoms, gradual healed wounds. Plan discussed with: Patient ISSAC SHAH MD Jul 12, 2024 14:26
--- NOTE | 2024-07-12 17:37 | DVH ---
CHEST RADIOGRAPH Indication: LEFT SIDE CHEST TUBE PLACEMENT Technique: Single frontal view of the chest was obtained COMPARISON: XY CHEST XRAY 1 VIEW on DOS: 07/12/24, XY CHEST PORTABLE on DOS: 07/10/24, XY CHEST PORTABL E on DOS: 07/09/24, XY CHEST PORTABLE on DOS: 07/05/24, XY CHEST PORTABLE on DOS: 07/05/24 FINDINGS: Lines and Tubes: Right chest tube and left chest tube in satisfactory position. Tracheostomy in sati sfactory position. Right PICC in satisfactory position. Lungs: Multifocal airspace disease. Pleura: No effusion. Unchanged small right and left pneumothorax. Cardiomediastinal contours: Cardiomegaly Bones: Unremarkable IMPRESSION: Decreased small left pleural effusion post chest tube placement. No other significant interval change .
--- NOTE | 2024-07-12 17:55 | DVHPN2 ---
Progress Note - Surgical Date Seen: Jul 12, 2024 Post op day Post op day: 14 Subjective Review of Systems: HEENT:Normal, CVS:Normal, RESPIRATORY:Abnormal, GI:Normal, :Normal Objective Vital signs Vital Sign Date Time Temp Pulse Resp B/P (MAP) Pulse Ox O2 Delivery O2 Flow Rate FiO2 07/12/24 16:15 99 Room Air 0.0 07/12/24 16:15 21 07/12/24 16:00 94 12 135/53 (80) 07/12/24 12:00 97.9 97.9 Total Intake and Output 07/11/24 07/11/24 07/12/24 15:00 23:00 07:00 Intake Total 600 ml 24 ml Output Total 800 ml 300 ml Balance -200 ml -276 ml Medications Current Medications Medications Dose Ordered Sig/Amy Route Start Time Stop Time Status Last Admin Dose Admin Potassium Chloride 100 ml @ 50 mls/hr Q2H IV 05/27/24 17:15 05/28/24 01:14 UNV Acetaminophen 650 mg Q6HP PRN PO 05/31/24 19:30 07/05/24 05:13 650 MG Potassium Chloride 100 ml @ 50 mls/hr Q2H IV 06/13/24 12:45 06/13/24 16:44 UNV Magnesium Sulfate/ Dextrose 100 ml @ 100 mls/hr Q1HR IV 06/13/24 13:00 06/13/24 14:59 UNV Cefepime HCl 50 ml @ 12.5 mls/hr Q8HR IV 06/13/24 14:00 UNV Sodium Chloride 10 ml QSHIFT@10,22 IV 06/17/24 22:00 07/12/24 08:58 10 ML Albuterol 2.5 mg Q6HR NEB 06/29/24 12:40 07/12/24 11:00 2.5 MG Ipratropium [place] 0.5 mg Q6HR NEB 06/29/24 12:41 07/12/24 11:00 0.5 MG Acetylcysteine 200 mg Q6HR NEB 06/29/24 12:41 07/12/24 11:00 200 MG Morphine Sulfate 2 mg Q4HPRN PRN IV 07/04/24 13:00 07/12/24 15:55 2 MG Alprazolam 0.25 mg TIDPRN PRN PO 07/05/24 14:00 Acetaminophen/ Hydrocodone Bitart 2 tab Q6HPRN PRN PO 07/09/24 12:15 UNV Acetaminophen/ Hydrocodone Bitart 1 tab Q6HPRN PRN PO 07/09/24 13:00 07/12/24 10:42 1 TAB Enteral Nutritional Formula 240 ml TIDWM PO 07/09/24 18:00 07/12/24 12:00 240 ML Furosemide 20 mg DAILY PO 07/10/24 10:00 07/11/24 09:25 20 MG Potassium Bicarbonate 25 meq DAILY PO 07/10/24 10:00 07/12/24 10:24 25 MEQ Laboratory Laboratory Tests 07/12/24 10:09 Test 07/12/24 10:09 Range/Units Serum Glucose 120 H 74-106 mg/dL Microbiology Date/Time Source Procedure Growth Status 06/29/24 18:08 Bronchial Washings Gram Stain - Final Complete 06/29/24 18:08 Respiratory Culture - Final Pseudomonas aeruginosa Complete 06/28/24 10:30 Chest Gram Stain - Final Complete 06/28/24 10:30 Chest Anaerobic Culture - Final Complete 06/28/24 10:30 Aerobic Culture - Final Pseudomonas aeruginosa Complete 06/25/24 14:45 Pleural Fluid Gram Stain - Final Complete 06/25/24 14:45 Body Fluid Culture - Final Pseudomonas aeruginosa Complete 06/25/24 06:40 Urine - [place] Urine Culture - Final Yeast, not Radha albicans Complete 06/24/24 20:21 Blood Blood Culture - Final NO GROWTH AFTER 5 DAYS OF INCUBATION. Complete Examination: GENERAL:Normal, HEENT:Normal, NECK:Abnormal (trach), CVS:Normal, ABDOMEN:Normal, SKIN:Normal, Any Other System: (Bilateral chest tubes) Labs and/or images reviewed: Image(s) reviewed by me Problem List/Assessment/Plan Problems: (1) Pneumothorax (2) Chest tube in place (3) Sacral wound Assessment and Plan chest tube in place , air leak , notes , image reports reviewed , discussed with Dr. Tilley continue current treatment 07/09/2024 @ [address], air leak, wounds clean dry and intact Discussed with dr. Tilley continue current treatment 07/11/[address] Tilley air leak, chest tube advanced reevaluate in 24 hours for leak wounds clean dry and in tact, NO SOB 07/12/2024 bilateral chest tubes , chest x ray reviewed, stable pneumothorax, no air leak chest tube site wound clean dry and intact thoracotomy wound clean dry and abiodun intact Plan: chest tubes on suction monitor chest tube output continue wound care continue with IV antibiotics change dressing as needed around chest tube thoracotomy wound no dressing open to air Discussed with Dr. Tilley My Orders My Orders Orders - NITA CEDENO DNP Procedure Category Date Status Time Chest Xray 1 View XY 07/12/24 Resulted 08:04 Plan discussed with Plan discussed with: Other (Dr. Tilley ) Visit Coding Surgery Date of Service if different f: Jul 12, 2024 Billing Provider: JIHAN TILLEY MD Surgery Visit Codes: [id number] INP/OBS CARE(HIGH) NITA CEDENO DNP Jul 12, 2024 17:55
[2024-07-13] VITALS (29 sets, daily range): BP systolic 97–133; BP diastolic 38–68; PULSE 76–97; RESP 10–25; TEMP 97.2–98.8; O2SAT 86–100
[2024-07-13] MEDS: ALPRAZolam 0.25 MG TAB PO PRN (05:30)
--- NOTE | 2024-07-13 05:38 | DVH ---
EXAM: XY CHEST PORTABLE HISTORY: CHEST TUBE PLACEMENT COMPARISON: XY CHEST PORTABLE on DOS: 07/12/24, XY CHEST XRAY 1 VIEW on DOS: 07/12/24, XY CHEST PORTABL E on DOS: 07/10/24, XY CHEST PORTABLE on DOS: 07/09/24, XY CHEST PORTABLE on DOS: 07/05/24 TECHNIQUE: Portable AP view of the chest was performed. FINDINGS: Tracheostomy right upper extremity PICC line, small bore right chest tube, and large bore left chest tube re-identified. Bilateral pneumothoraces are re-identified, accumulating inferiorly. There are mi ld infiltrates in the bilateral lung bases. The heart is enlarged. IMPRESSION: 1. Tracheostomy ventilation. 2. Bilateral thoracostomy tubes and small bilateral pneumothoraces. 3. Mild bibasilar infiltrates. 4. Cardiomegaly.
--- NOTE | 2024-07-13 18:01 | DVHPN2 ---
Subjective in bed resting Reviewed: Care Plan, H&P, Labs, Medications, Previous Orders, Radiology, Other (Consultations) Changes from previous H/P or p: No Changes Objective Vitals Vital Signs Date Time Temp Pulse Resp B/P (MAP) Pulse Ox O2 Delivery O2 Flow Rate FiO2 07/13/24 16:00 14 95 Room Air* 0 21 07/13/24 16:00 98.4 87 113/47 (69) 98.4 Intake/Output Intake and Output 07/13/24 07:00 Intake Total 1050 ml Output Total 1595 ml Balance -545 ml Intake Oral 1050 ml Output Urine Total 1225 ml Chest Tube Drainage Total 370 ml # Bowel Movements 1 General Appearance: Other (Sedated) HEENT: Atraumatic Neck: Other (tracheostomy) Lungs: Other (MV sounds) Chest/Breasts: Other (Two right-sided chest tubes; and one left-sided chest tube) Cardiovascular: Regular rate, Normal S1, Normal S2 Abdomen: Normal bowel sounds, Soft Genitourinary: Other (Burk's) Neuro: Other (Sedated) Psych/Mental Status: Other (Sedated) Medications Current Medications Medications Dose Ordered Sig/Amy Route Start Time Stop Time Status Last Admin Dose Admin Potassium Chloride 100 ml @ 50 mls/hr Q2H IV 05/27/24 17:15 05/28/24 01:14 UNV Acetaminophen 650 mg Q6HP PRN PO 05/31/24 19:30 07/05/24 05:13 650 MG Potassium Chloride 100 ml @ 50 mls/hr Q2H IV 06/13/24 12:45 06/13/24 16:44 UNV Magnesium Sulfate/ Dextrose 100 ml @ 100 mls/hr Q1HR IV 06/13/24 13:00 06/13/24 14:59 UNV Cefepime HCl 50 ml @ 12.5 mls/hr Q8HR IV 06/13/24 14:00 UNV Sodium Chloride 10 ml QSHIFT@, IV 06/17/24 22:00 07/13/24 08:16 10 ML Albuterol 2.5 mg Q6HR NEB 06/29/24 12:40 07/12/24 11:00 2.5 MG Ipratropium [place] 0.5 mg Q6HR NEB 06/29/24 12:41 07/12/24 11:00 0.5 MG Acetylcysteine 200 mg Q6HR NEB 06/29/24 12:41 07/12/24 11:00 200 MG Morphine Sulfate 2 mg Q4HPRN PRN IV 07/04/24 13:00 07/12/24 15:55 2 MG Alprazolam 0.25 mg TIDPRN PRN PO 07/05/24 14:00 07/13/24 05:30 0.25 MG Acetaminophen/ Hydrocodone Bitart 2 tab Q6HPRN PRN PO 07/09/24 12:15 UNV Acetaminophen/ Hydrocodone Bitart 1 tab Q6HPRN PRN PO 07/09/24 13:00 07/13/24 17:02 1 TAB Enteral Nutritional Formula 240 ml TIDWM PO 07/09/24 18:00 07/13/24 17:02 240 ML Furosemide 20 mg DAILY PO 07/10/24 10:00 07/13/24 08:24 20 MG Potassium Bicarbonate 25 meq DAILY PO 07/10/24 10:00 07/13/24 08:16 25 MEQ Laboratory Results Laboratory Tests 07/12/24 10:09 Urinalysis Test 05/19/24 10:08 07/10/24 15:28 Urine WBC 3 /hpf (0 - 3) Urine Color Light-yellow (Yellow) Urine Clarity Turbid (Clear) H Urine pH 5.0 (5.0-9.0) Urine Specific [place] 1.012 (1.001-1.035) Urine Protein Trace (Negative) H Urine Ketones Negative (Negative) Urine Blood Trace /uL (Negative) H Urine Nitrite Negative (Negative) Urine Bilirubin Negative (Negative) Urine Urobilinogen Normal mg/dL (Negative) Urine Leukocyte Esterase Negative /uL (Negative) Urine RBC None seen /hpf (0 - 3) Urine Microscopic WBC 2 /HPF (0-3) Urine Squamous Epithelial Cells None seen /hpf (<5) Urine Bacteria Few /hpf (None Seen) H Urine Hyaline Casts Few /lpf (0 - 2) Urine Mucus Few (None Seen) Urine Yeast (Budding) Loaded /hpf (None Seen) Urine Glucose 4+ mg/dL (Normal) H Microbiology Microbiology Date/Time Source Procedure Growth Status 06/29/24 18:08 Bronchial Washings Gram Stain - Final Complete 06/29/24 18:08 Respiratory Culture - Final Pseudomonas aeruginosa Complete 06/28/24 10:30 Chest Gram Stain - Final Complete 06/28/24 10:30 Chest Anaerobic Culture - Final Complete 06/28/24 10:30 Aerobic Culture - Final Pseudomonas aeruginosa Complete 06/25/24 14:45 Pleural Fluid Gram Stain - Final Complete 06/25/24 14:45 Body Fluid Culture - Final Pseudomonas aeruginosa Complete 06/25/24 06:40 Urine - [place] Urine Culture - Final Yeast, not [place] albicans Complete 06/24/24 20:21 Blood Blood Culture - Final NO GROWTH AFTER 5 DAYS OF INCUBATION. Complete Assessment/Plan Assessment/Plan ICU Course: A 63-year-old male with a history of heart failure with reduced ejection fraction 20%, severe mitral regurgitation, dilated aortic root of 4.9 cm, moderate pulmonary arterial hypertension, pulmonary embolism, congestive heart failure (CHF) and pulmonary embolism was intubated in the ICU. He developed necrotic pressure ulcers and multiorgan failure, large right pleural effusion, right heart strain, right pulmonary artery embolus, leading to a tracheostomy. A chest tube was placed, and a chest CT was performed. Due to low blood pressure, he required Levophed. Initially was on BiPAP, eventually needed intubation, status post trach, now on minimal vent settings. tolerating well x5 days. Patient is much more awake alert and conversant. Voice more stronger and patient passed swallow eval advanced diet from pureed to mechanical soft, added ensure t.i.d., started physical therapy and we will try to start right chest tube weaning trial. Hospitalization day: 55 A. Neurology: AAO x 4 conversant. #Acute metabolic/toxic encephalopathy in the setting of septic shock, improved. 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 B. Cardiology: # Acute on chronic systolic CHF exacerabation # heart failure with reduced ejection fraction: Ejection fraction of 20%: 2 g salt restriction, careful fluid management, GDMT started jardiance 10 mg daily as per EMPEROR-Reduced trial. BP softer for other Meds. # mild AV calcification # severe mitral regurgitation # dilated aortic root 4.9 cm, stable. # Atrial flutter, currently sinus rhythm: had sync cardioversion on 05/27/24 # Non-sustained Vtach, subsided keep the patient on telemetry, keep K+ >4 mg>2 C. Respiratory: #Acute hypoxic respiratory failure due to Pseudomonas aeruginosa pneumonia, pleural effusions, and pulmonary embolism: on [facility], intubated on 05/26/24, reintubation on 06/12/24 due to ETT leak, extubated 06/26/24, tracheostomy tube placed 06/26/24, trach collar trials started on 07/02/2024: next day satisfactory, so will successful full day trach collar>>> we will try 24 hour trach, tolerating well, we will try to wait till the trach matures. #Septic shock due to Pseudomonas aeruginosa pneumonia: Status post IV antibiotics, recheck sputum/secretion from tracheostomy tube, to rule out any residual infection. #Pleural effusions s/p three chest tubes (two on the right; one on the left) right chest tube out, no changes in respiratory status. cxr unremarkable. CT chest satisfactory. Surgical team and pulmonology updated. Repeat CXR NO interval changes. #moderate pulmonary arterial hypertension #large right pulmonary artery embolus #right hydro pneumothorax with right chest tube in-situ. #Moderate left pleural effusion. 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 Olivas/surgery team on board, repeat CT chest shows subcutaneous emphysema no surgical intervention. #Large right pleural effusion: s/p multiple thoracentesis, pt has currently 2 chest tubes & last CT 06/16/24 shows Moderate right pleural fluid collection with near complete collapse of the right lower lobe chest tube in place within the collection. #Right lower lobe atelectasis, mildly improved #Multiple mucus plugs status post multiple bronchoscopies #Pneumonia, community acquired, gram +/-, possible superseded fungal infection: Micafungin for infection #pneumomediastinum, hemodynamically stable #Increased left pneumothorax despite the presence of a left chest tube: Continues to have air leak at -30 of air seal, patient is hemodynamically stable, still continues to have subcutaneous emphysema. No possible solution except surgical management when patient is able to undergo surgical decortication. #Left chest tube dislodgement: surgical consult to management as it was previously managed by Dr. Henry. repeat cxr tomorrow. further plan based on the findings. D. Gastrointestinal: # Transaminitis likely due to sepsis: Improving # Moderate colonic diverticulosis: Without signs of diverticulitis. # Cholelithiasis, without cholecystitis. # nutrition: Glucerna # constipation: On Colace # Swallow eval passed> nutrition started on oral pureed diet. aspiration precautions to continue> changed to mechanical soft diet. # nutrition: Pureed diet, cardiologic modification along with salt restriction, change to we will mechanical soft with high-protein diet, ensure t.i.d. # moderate malnutrition: Dietary consult, continue supplements. E. Genitourinary: Uncomplicated presumably, off of Burk. F. Infectious Disease: # complicated UTI: urine culture reveals Pseudomonas and Enterococcus, appropriately on antibiotics asymptomatic presumably # shock, likely cardiogenic/septic: Negative for hepatitis-B, hepatitis-C, HIV, # Sacral Wound, Unchangeable: Status post wound debridement wound care to continue patient on -125 cc of wound VAC in past 24 hour approximately 200 mL of collection likely we will need long-term wound VAC support. Appreciate input of wound care team, q2 hours positions change. # respiratory Pseudomonas infection: Status post Zerbaxa pending repeat respiratory Pseudomonas culture to determine fate of further IV antibiotics. G. Hematology & Oncology: # anemia, normocytic, severe: s/p 1 unit of PRBC transfusion, H&H stable # coagulopathy likely due to sepsis, no active bleeding noted presumably. # thrombocytopenia: Improved H. Nephrology: renal function satisfactory: Urine output appropriate # Hypernatremia, corrected # Hyperkalemia, corrected # hypokalemia , Corrected # RADHA likely due to vasomotor nephropathy, improved monitor BMP closely # metabolic alkalosis with respiratory alkalosis, improved # hypophosphatemia, corrected I. Endocrine: # prediabetic with HbA1c of 6.1 J. MSK: # ICU myopathy: Low muscle mass extremely weak, we will need probably extensive physical therapy and support. Start aggressive in-hospital physiotherapy, PT consulted. Appreciate input. We will look for any further modification or discharge planning to LTAC. Fall precautions in place. Added Trapeze bar to beds to improve upper body functional status. K. Prophylaxis: PPI: Pantoprazole dc now DVT: SCDs L. Lines & Drains (with insertion date): PICC line 06/17/24 Left subclavian CVC line 06/05/24, removed 06/17/24 Right femoral A-line 06/03/24, discontinued 06/24/2024 Burk catheter 05/21/24, removed. right Arterial line 06/26/23. removed. N. Disposition: Remains in [facility], Advance discharge planning with wound vac with social work started and discharge planning. Updated Fiance: Melissa Jones over phone. Advance placement planning for LTAC sent to [facility] and [facility]. Waiting for further confirmation of placement. Continue PT in the mean time. The patient care consists of total 81 minutes of critical care time excluding the procedures Dictated by Jose Francisco Treadwell MD with 3M MModal Fluency. Plan discussed with: Patient, Other Plan discussed with: Patient Date of Service: Jul 13, 2024 Billing Provider: MIKAYLA EUGENE MD Common Visit Codes: [id number] CARE 30-74 MIN MIKAYLA EUGENE MD Jul 13, 2024 18:01
[2024-07-13 19:30] LABS: Alanine Aminotransferase 15 U/L (7-40); Anion Gap 4 (5-15); Aspartate Aminotransferase 23 U/L (13-40); BUN/Creatinine Ratio 28.3 (10.0-20.0); Blood Urea Nitrogen 15 mg/dL (9-23); Chloride 101 mmol/L (98-107); Glucose 105 mg/dL (74-106); Potassium 4.4 mmol/L (3.5-5.1); Sodium 136 mmol/L (136-145)
[2024-07-13 19:31] LABS: Albumin 2.3 g/dL (3.2-4.8); Alkaline Phosphatase 141 U/L (46-116); Bilirubin, Total 1.3 mg/dL (0.2-1.0); Calcium 8.4 mg/dL (8.7-10.4); Carbon Dioxide 31 mmol/L (20-31); Total Protein 5.4 g/dL (5.7-8.2)
--- NOTE | 2024-07-13 20:02 | DVHPN2 ---
Progress Note - Dictate Date Seen: Jul 13, 2024 Has the PT tested + for MRSA If YES, has PT been informed?: No Medical Necessity Reason Pt with a Central, PICC or Fol: No The following are medically ne: Central Line, Olsen Catheter Reason for olsen catheter: Strict I&O Subjective Patient seen and examined at bedside. S/p trach, on trach collar. On room air Overnight events reviewed. vital signs Vital Sign Date Time Temp Pulse Resp B/P (MAP) Pulse Ox O2 Delivery O2 Flow Rate FiO2 07/13/24 18:56 94 Room Air 0.0 07/13/24 18:56 21 07/13/24 18:00 94 19 110/44 (66) 07/13/24 16:00 98.4 98.4 Total Intake and Output 07/12/24 07/12/24 07/13/24 15:00 23:00 07:00 Intake Total 800 ml 250 ml Output Total 795 ml 800 ml Balance 5 ml -550 ml medications Current Medications Medications Dose Ordered Sig/Amy Route Start Time Stop Time Status Last Admin Dose Admin Potassium Chloride 100 ml @ 50 mls/hr Q2H IV 05/27/24 17:15 05/28/24 01:14 UNV Acetaminophen 650 mg Q6HP PRN PO 05/31/24 19:30 07/05/24 05:13 650 MG Potassium Chloride 100 ml @ 50 mls/hr Q2H IV 06/13/24 12:45 06/13/24 16:44 UNV Magnesium Sulfate/ Dextrose 100 ml @ 100 mls/hr Q1HR IV 06/13/24 13:00 06/13/24 14:59 UNV Cefepime HCl 50 ml @ 12.5 mls/hr Q8HR IV 06/13/24 14:00 UNV Sodium Chloride 10 ml QSHIFT@10,22 IV 06/17/24 22:00 07/13/24 08:16 10 ML Albuterol 2.5 mg Q6HR NEB 06/29/24 12:40 07/12/24 11:00 2.5 MG Ipratropium [place] 0.5 mg Q6HR NEB 06/29/24 12:41 07/12/24 11:00 0.5 MG Acetylcysteine 200 mg Q6HR NEB 06/29/24 12:41 07/12/24 11:00 200 MG Morphine Sulfate 2 mg Q4HPRN PRN IV 07/04/24 13:00 07/12/24 15:55 2 MG Alprazolam 0.25 mg TIDPRN PRN PO 07/05/24 14:00 07/13/24 05:30 0.25 MG Acetaminophen/ Hydrocodone Bitart 2 tab Q6HPRN PRN PO 07/09/24 12:15 UNV Acetaminophen/ Hydrocodone Bitart 1 tab Q6HPRN PRN PO 07/09/24 13:00 07/13/24 17:02 1 TAB Enteral Nutritional Formula 240 ml TIDWM PO 07/09/24 18:00 07/13/24 17:02 240 ML Furosemide 20 mg DAILY PO 07/10/24 10:00 07/13/24 08:24 20 MG Potassium Bicarbonate 25 meq DAILY PO 07/10/24 10:00 07/13/24 08:16 25 MEQ objective Gen.: Patient lying in bed in no apparent distress. S/p trach, on trach collar. Room air. Head: Normocephalic, atraumatic. Eyes: EOMI/PERRLA. Ears: Normal hearing. Normal anatomy. Neck/trachea: Trach in place Nose: Normal external anatomy. Mouth: Moist mucous membranes. Chest: Decreased air entry bilaterally. No wheezing or rhonchi. Cardiovascular: Positive S1, positive S2. Regular rate and rhythm. Abdomen: Positive bowel sounds in all 4 quadrants. Soft, non-tender, non- distended. : Deferred. Rectal: Deferred. Skin: Warm, dry. Intact. Extremities: 2+ radial pulses bilaterally. No lower extremity edema. Neuro: Awake, alert, oriented x3. No gross motor or sensory deficits. Cranial nerves II through XII intact. Gait not assessed. laboratory and microbiology Laboratory Tests 07/13/24 18:31 07/12/24 10:09 Test 07/13/24 18:31 Range/Units Serum Glucose 105 74-106 mg/dL Assessment/Plan Impression: Acute hypoxic respiratory failure S/p tracheostomy Pleural effusion, right Atelectasis CHF exacerbation Pulmonary embolism Obesity with a BMI of 30.1 Pneumonia, likely gram negative Sacral wound Events: S/p trach on trach collar No distress On room air 25% of mechanical soft diet. Left chest tube shows persistent air leak. Right chest tube not draining S/p placement of 3 chest tubes Wound VAC Rectal tube Central line in place Off pressors, hemodynamically stable. TPN for nutritional support Monitor hemoglobin Monitor renal function Monitor electrolytes. Supplement as necessary. Monitor ins and outs Nephrology recs appreciated. Surgery recs appreciated. Poor prognosis Awaiting placement 06/09/24 - S/p bronchoscopy - removed copious secretions from L1-L10 06/09/24 - S/p right thoracentesis - 550 ml joycelyn fluid removed from right pleural space. 06/05/24 - S/p left thoracentesis on 950 mL's of joycelyn colored fluid removed from left pleural space. 06/03/24 - S/p bronchoscopy - cleared mucous plugging from L6-L10, L1-L5 and R1- R3 06/03/24 - S/p right thoracentesis - 1700 mL of serosanguineous fluid removed from R pleural space. S/p bronchoscopy w/ RML BAL on 05/28/24 - Cleared bloody secretions from L1-L10 and R1-R10 S/p cardioversion on 05/27/24 Labs and imaging reviewed. Rest of plan as noted below. Plan: s/p trach, on trach collar Room air. Off sedation Pressors if necessary for hemodynamic support. Titrate to keep MAP above 65 mmHg/SBP above 90 mmHg. Monitor chest tube output Monitor renal function due to Acute kidney injury. Monitor electrolytes. Supplement as necessary. Monitor ins and outs Maintain euvolemia Cardiology recommendations appreciated. Nutritional support. Accu-Cheks, ISS. GI/DVT prophylaxis. Prognosis: Poor given multiple comorbidities. Rest of plan per hospitalist and other consultants. Thank you Dr. Conn for allowing me to participate in this patient's care. Further recommendations will depend on patient's clinical course. Please do not hesitate to contact me if you have any questions or concerns. This medical document was created using an electronic medical record system with [employer] dictation system. Although this document has been carefully reviewed, there may still be some phonetic and typographical errors. These areas are purely typographical due to imperfections of the software programs, and do not reflect any compromise in the patient's medical care. Dietary Evaluation Review Comments: 1. consider Renal Specific 70g protein restriction witn 2GNa, 3K, low Phos, if no diaylsis needed. 2. consider Renal Standard 2gn, 3K, low phosphate diet if Pt is on dialysis. 3. encourage and monitor po intake to meet 75% of his needs. Expected Outcomes/Goals: avoid uremic symptoms, gradual healed wounds. Plan discussed with: Patient, Other (CALEB Tinajero) BOGDAN MANN MD Jul 13, 2024 20:02
[2024-07-14] VITALS (26 sets, daily range): BP systolic 95–124; BP diastolic 42–56; PULSE 79–98; RESP 10–25; TEMP 97–98.6; O2SAT 88–100
--- NOTE | 2024-07-14 14:33 | DVHPN2 ---
Subjective in bed resting Reviewed: Care Plan, H&P, Labs, Medications, Previous Orders, Radiology, Other (Consultations) Changes from previous H/P or p: No Changes Objective Vitals Vital Signs Date Time Temp Pulse Resp B/P (MAP) Pulse Ox O2 Delivery O2 Flow Rate FiO2 07/14/24 14:00 86 07/14/24 14:00 22 95/52 (66) 91 07/14/24 14:00 Room Air* 0 21 07/14/24 12:00 97.6 97.6 Intake/Output Intake and Output 07/14/24 07:00 Intake Total 490 ml Output Total 1850 ml Balance -1360 ml Intake Oral 490 ml Output Urine Total 1300 ml Chest Tube Drainage Total 550 ml # Voids 1 General Appearance: Other (Sedated) HEENT: Atraumatic Neck: Other (tracheostomy) Lungs: Other (MV sounds) Chest/Breasts: Other (Two right-sided chest tubes; and one left-sided chest tube) Cardiovascular: Regular rate, Normal S1, Normal S2 Abdomen: Normal bowel sounds, Soft Genitourinary: Other ([place]) Neuro: Other (Sedated) Psych/Mental Status: Other (Sedated) Medications Current Medications Medications Dose Ordered Sig/Amy Route Start Time Stop Time Status Last Admin Dose Admin Potassium Chloride 100 ml @ 50 mls/hr Q2H IV 05/27/24 17:15 05/28/24 01:14 UNV Acetaminophen 650 mg Q6HP PRN PO 05/31/24 19:30 07/05/24 05:13 650 MG Potassium Chloride 100 ml @ 50 mls/hr Q2H IV 06/13/24 12:45 06/13/24 16:44 UNV Magnesium Sulfate/ Dextrose 100 ml @ 100 mls/hr Q1HR IV 06/13/24 13:00 06/13/24 14:59 UNV Cefepime HCl 50 ml @ 12.5 mls/hr Q8HR IV 06/13/24 14:00 UNV Sodium Chloride 10 ml QSHIFT@10,22 IV 06/17/24 22:00 07/14/24 08:31 10 ML Albuterol 2.5 mg Q6HR NEB 06/29/24 12:40 07/12/24 11:00 2.5 MG Ipratropium [place] 0.5 mg Q6HR NEB 06/29/24 12:41 07/12/24 11:00 0.5 MG Acetylcysteine 200 mg Q6HR NEB 06/29/24 12:41 07/12/24 11:00 200 MG Morphine Sulfate 2 mg Q4HPRN PRN IV 07/04/24 13:00 07/13/24 21:30 2 MG Alprazolam 0.25 mg TIDPRN PRN PO 07/05/24 14:00 07/13/24 21:30 0.25 MG Acetaminophen/ Hydrocodone Bitart 2 tab Q6HPRN PRN PO 07/09/24 12:15 UNV Acetaminophen/ Hydrocodone Bitart 1 tab Q6HPRN PRN PO 07/09/24 13:00 07/14/24 04:56 1 TAB Enteral Nutritional Formula 240 ml TIDWM PO 07/09/24 18:00 07/14/24 12:45 240 ML Furosemide 20 mg DAILY PO 07/10/24 10:00 07/14/24 08:32 20 MG Potassium Bicarbonate 25 meq DAILY PO 07/10/24 10:00 07/14/24 08:31 25 MEQ Laboratory Results Laboratory Tests 07/12/24 10:09 07/13/24 18:31 Chemistry Test 07/13/24 18:31 Albumin 2.3 g/dL (3.2-4.8) L Calcium Level 8.4 mg/dL (8.7-10.4) L Total Protein 5.4 g/dL (5.7-8.2) L LFT Test 07/13/24 18:31 Alanine Aminotransferase (ALT) 15 U/L (7-40) Alkaline Phosphatase 141 U/L (46-116) H Aspartate Amino Transferase (AST) 23 U/L (13-40) Total Bilirubin 1.3 mg/dL (0.2-1.0) H Urinalysis Test 05/19/24 10:08 07/10/24 15:28 Urine WBC 3 /hpf (0 - 3) Urine Color Light-yellow (Yellow) Urine Clarity Turbid (Clear) H Urine pH 5.0 (5.0-9.0) Urine Specific [place] 1.012 (1.001-1.035) Urine Protein Trace (Negative) H Urine Ketones Negative (Negative) Urine Blood Trace /uL (Negative) H Urine Nitrite Negative (Negative) Urine Bilirubin Negative (Negative) Urine Urobilinogen Normal mg/dL (Negative) Urine Leukocyte Esterase Negative /uL (Negative) Urine RBC None seen /hpf (0 - 3) Urine Microscopic WBC 2 /HPF (0-3) Urine Squamous Epithelial Cells None seen /hpf (<5) Urine Bacteria Few /hpf (None Seen) H Urine Hyaline Casts Few /lpf (0 - 2) Urine Mucus Few (None Seen) Urine Yeast (Budding) Loaded /hpf (None Seen) Urine Glucose 4+ mg/dL (Normal) H Microbiology Microbiology Date/Time Source Procedure Growth Status 06/29/24 18:08 Bronchial Washings Gram Stain - Final Complete 06/29/24 18:08 Respiratory Culture - Final Pseudomonas aeruginosa Complete 06/28/24 10:30 Chest Gram Stain - Final Complete 06/28/24 10:30 Chest Anaerobic Culture - Final Complete 06/28/24 10:30 Aerobic Culture - Final Pseudomonas aeruginosa Complete 06/25/24 14:45 Pleural Fluid Gram Stain - Final Complete 06/25/24 14:45 Body Fluid Culture - Final Pseudomonas aeruginosa Complete 06/25/24 06:40 Urine - [place] Urine Culture - Final Yeast, not Radha albicans Complete 06/24/24 20:21 Blood Blood Culture - Final NO GROWTH AFTER 5 DAYS OF INCUBATION. Complete Assessment/Plan Assessment/Plan ICU Course: A 63-year-old male with a history of heart failure with reduced ejection fraction 20%, severe mitral regurgitation, dilated aortic root of 4.9 cm, moderate pulmonary arterial hypertension, pulmonary embolism, congestive heart failure (CHF) and pulmonary embolism was intubated in the ICU. He developed necrotic pressure ulcers and multiorgan failure, large right pleural effusion, right heart strain, right pulmonary artery embolus, leading to a tracheostomy. A chest tube was placed, and a chest CT was performed. Due to low blood pressure, he required Levophed. Initially was on BiPAP, eventually needed intubation, status post trach, now on minimal vent settings. tolerating well x5 days. Patient is much more awake alert and conversant. Voice more stronger and patient passed swallow eval advanced diet from pureed to mechanical soft, added ensure t.i.d., started physical therapy and we will try to start right chest tube weaning trial. Hospitalization day: 55 A. Neurology: AAO x 4 conversant. #Acute metabolic/toxic encephalopathy in the setting of septic shock, improved. 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 B. Cardiology: # Acute on chronic systolic CHF exacerabation # heart failure with reduced ejection fraction: Ejection fraction of 20%: 2 g salt restriction, careful fluid management, GDMT started jardiance 10 mg daily as per EMPEROR-Reduced trial. BP softer for other Meds. # mild AV calcification # severe mitral regurgitation # dilated aortic root 4.9 cm, stable. # Atrial flutter, currently sinus rhythm: had sync cardioversion on 05/27/24 # Non-sustained Vtach, subsided keep the patient on telemetry, keep K+ >4 mg>2 C. Respiratory: #Acute hypoxic respiratory failure due to Pseudomonas aeruginosa pneumonia, pleural effusions, and pulmonary embolism: on [facility] vent, intubated on 05/26/24, reintubation on 06/12/24 due to ETT leak, extubated 06/26/24, tracheostomy tube placed 06/26/24, trach collar trials started on 07/02/2024: next day satisfactory, so will successful full day trach collar>>> we will try 24 hour trach, tolerating well, we will try to wait till the trach matures. #Septic shock due to Pseudomonas aeruginosa pneumonia: Status post IV antibiotics, recheck sputum/secretion from tracheostomy tube, to rule out any residual infection. #Pleural effusions s/p three chest tubes (two on the right; one on the left) right chest tube out, no changes in respiratory status. cxr unremarkable. CT chest satisfactory. Surgical team and pulmonology updated. Repeat CXR NO interval changes. #moderate pulmonary arterial hypertension #large right pulmonary artery embolus #right hydro pneumothorax with right chest tube in-situ. #Moderate left pleural effusion. 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 Olivas/surgery team on board, repeat CT chest shows subcutaneous emphysema no surgical intervention. #Large right pleural effusion: s/p multiple thoracentesis, pt has currently 2 chest tubes & last CT 06/16/24 shows Moderate right pleural fluid collection with near complete collapse of the right lower lobe chest tube in place within the collection. #Right lower lobe atelectasis, mildly improved #Multiple mucus plugs status post multiple bronchoscopies #Pneumonia, community acquired, gram +/-, possible superseded fungal infection: Micafungin for infection #pneumomediastinum, hemodynamically stable #Increased left pneumothorax despite the presence of a left chest tube: Continues to have air leak at -30 of air seal, patient is hemodynamically stable, still continues to have subcutaneous emphysema. No possible solution except surgical management when patient is able to undergo surgical decortication. #Left chest tube dislodgement: surgical consult to management as it was previously managed by Dr. Henry. repeat cxr tomorrow. further plan based on the findings. D. Gastrointestinal: # Transaminitis likely due to sepsis: Improving # Moderate colonic diverticulosis: Without signs of diverticulitis. # Cholelithiasis, without cholecystitis. # nutrition: Glucerna # constipation: On Colace # Swallow eval passed> nutrition started on oral pureed diet. aspiration precautions to continue> changed to mechanical soft diet. # nutrition: Pureed diet, cardiologic modification along with salt restriction, change to we will mechanical soft with high-protein diet, ensure t.i.d. # moderate malnutrition: Dietary consult, continue supplements. E. Genitourinary: Uncomplicated presumably, off of [place]. F. Infectious Disease: # complicated UTI: urine culture reveals Pseudomonas and Enterococcus, appropriately on antibiotics asymptomatic presumably # shock, likely cardiogenic/septic: Negative for hepatitis-B, hepatitis-C, HIV, # Sacral Wound, Unchangeable: Status post wound debridement wound care to continue patient on -125 cc of wound VAC in past 24 hour approximately 200 mL of collection likely we will need long-term wound VAC support. Appreciate input of wound care team, q2 hours positions change. # respiratory Pseudomonas infection: Status post Zerbaxa pending repeat respiratory Pseudomonas culture to determine fate of further IV antibiotics. G. Hematology & Oncology: # anemia, normocytic, severe: s/p 1 unit of PRBC transfusion, H&H stable # coagulopathy likely due to sepsis, no active bleeding noted presumably. # thrombocytopenia: Improved H. Nephrology: renal function satisfactory: Urine output appropriate # Hypernatremia, corrected # Hyperkalemia, corrected # hypokalemia , Corrected # RADHA likely due to vasomotor nephropathy, improved monitor BMP closely # metabolic alkalosis with respiratory alkalosis, improved # hypophosphatemia, corrected I. Endocrine: # prediabetic with HbA1c of 6.1 J. MSK: # ICU myopathy: Low muscle mass extremely weak, we will need probably extensive physical therapy and support. Start aggressive in-hospital physiotherapy, PT consulted. Appreciate input. We will look for any further modification or discharge planning to LTAC. Fall precautions in place. Added Trapeze bar to beds to improve upper body functional status. K. Prophylaxis: PPI: Pantoprazole dc now DVT: SCDs L. Lines & Drains (with insertion date): PICC line 06/17/24 Left subclavian CVC line 06/05/24, removed 06/17/24 Right femoral A-line 06/03/24, discontinued 06/24/2024 [place] catheter 05/21/24, removed. right Arterial line 06/26/23. removed. N. Disposition: Remains in [facility], Advance discharge planning with wound vac with social work started and discharge planning. Updated Fiance: Melissa Jones over phone. Advance placement planning for LTAC sent to [facility] and [facility]. Waiting for further confirmation of placement. Continue PT in the mean time. The patient care consists of total 81 minutes of critical care time excluding the procedures Dictated by Jose Francisco Treadwell MD with 3M MModal Fluency. Plan discussed with: Patient, Other Plan discussed with: Patient Date of Service: Jul 14, 2024 Billing Provider: MIKAYLA EUGENE MD Common Visit Codes: [id number] CARE 30-74 MIN MIKAYLA EUGENE MD Jul 14, 2024 14:33
--- NOTE | 2024-07-14 15:42 | CODING ---
Date of Service: Jun 24, 2024 Billing Provider: TIFFANY CLAYTON MD Common Visit Codes: [id number] CARE 30-74 MIN TIFFANY CLAYTON MD Jul 14, 2024 15:42
--- NOTE | 2024-07-14 22:59 | DVHPN2 ---
Progress Note - Dictate Date Seen: Jul 14, 2024 Has the PT tested + for MRSA If YES, has PT been informed?: No Medical Necessity Reason Pt with a Central, PICC or Fol: No The following are medically ne: Central Line, Olsen Catheter Reason for olsen catheter: Strict I&O Subjective Patient seen and examined at bedside. S/p trach, on trach collar. On room air Overnight events reviewed. vital signs Vital Sign Date Time Temp Pulse Resp B/P (MAP) Pulse Ox O2 Delivery O2 Flow Rate FiO2 07/14/24 21:00 84 14 109/50 (69) 98 07/14/24 20:00 Room Air* 0 21 07/14/24 20:00 98.6 98.6 Total Intake and Output 07/13/24 07/13/24 07/14/24 15:00 23:00 07:00 Intake Total 240 ml 250 ml Output Total 1400 ml 450 ml Balance -1160 ml -200 ml medications Current Medications Medications Dose Ordered Sig/Amy Route Start Time Stop Time Status Last Admin Dose Admin Potassium Chloride 100 ml @ 50 mls/hr Q2H IV 05/27/24 17:15 05/28/24 01:14 UNV Acetaminophen 650 mg Q6HP PRN PO 05/31/24 19:30 07/05/24 05:13 650 MG Potassium Chloride 100 ml @ 50 mls/hr Q2H IV 06/13/24 12:45 06/13/24 16:44 UNV Magnesium Sulfate/ Dextrose 100 ml @ 100 mls/hr Q1HR IV 06/13/24 13:00 06/13/24 14:59 UNV Cefepime HCl 50 ml @ 12.5 mls/hr Q8HR IV 06/13/24 14:00 UNV Sodium Chloride 10 ml QSHIFT@10,22 IV 06/17/24 22:00 07/14/24 22:04 10 ML Albuterol 2.5 mg Q6HR NEB 06/29/24 12:40 07/12/24 11:00 2.5 MG Ipratropium [place] 0.5 mg Q6HR NEB 06/29/24 12:41 07/12/24 11:00 0.5 MG Acetylcysteine 200 mg Q6HR NEB 06/29/24 12:41 07/12/24 11:00 200 MG Morphine Sulfate 2 mg Q4HPRN PRN IV 07/04/24 13:00 07/13/24 21:30 2 MG Alprazolam 0.25 mg TIDPRN PRN PO 07/05/24 14:00 07/13/24 21:30 0.25 MG Acetaminophen/ Hydrocodone Bitart 2 tab Q6HPRN PRN PO 07/09/24 12:15 UNV Acetaminophen/ Hydrocodone Bitart 1 tab Q6HPRN PRN PO 07/09/24 13:00 07/14/24 19:59 1 TAB Enteral Nutritional Formula 240 ml TIDWM PO 07/09/24 18:00 07/14/24 17:25 240 ML Furosemide 20 mg DAILY PO 07/10/24 10:00 07/14/24 08:32 20 MG Potassium Bicarbonate 25 meq DAILY PO 07/10/24 10:00 07/14/24 08:31 25 MEQ objective Gen.: Patient lying in bed in no apparent distress. S/p trach, on trach collar. Room air. Head: Normocephalic, atraumatic. Eyes: EOMI/PERRLA. Ears: Normal hearing. Normal anatomy. Neck/trachea: Trach in place Nose: Normal external anatomy. Mouth: Moist mucous membranes. Chest: Decreased air entry bilaterally. No wheezing or rhonchi. Cardiovascular: Positive S1, positive S2. Regular rate and rhythm. Abdomen: Positive bowel sounds in all 4 quadrants. Soft, non-tender, non- distended. : Deferred. Rectal: Deferred. Skin: Warm, dry. Intact. Extremities: 2+ radial pulses bilaterally. No lower extremity edema. Neuro: Awake, alert, oriented x3. No gross motor or sensory deficits. Cranial nerves II through XII intact. Gait not assessed. laboratory and microbiology Laboratory Tests 07/13/24 18:31 07/12/24 10:09 Test 07/13/24 18:31 Range/Units Serum Glucose 105 74-106 mg/dL Assessment/Plan Impression: Acute hypoxic respiratory failure S/p tracheostomy Pleural effusion, right Atelectasis CHF exacerbation Pulmonary embolism Obesity with a BMI of 30.1 Pneumonia, likely gram negative Sacral wound Events: S/p trach on trach collar No distress On room air CXR reviewed; bilateral chest tubes in place. Small bilateral pneumothoraces. S/p tracheostomy. Mild bibasilar opacities. Cardiomegaly. Continue bronchodilators Mucolytics Off pressors, hemodynamically stable. TPN for nutritional support Monitor hemoglobin Maintain euvolemia w/ Lasix Monitor renal function Monitor electrolytes. Supplement as necessary. Monitor ins and outs Nephrology recs appreciated. Surgery recs appreciated. S/p placement of 3 chest tubes Wound VAC Rectal tube Central line in place Poor prognosis Awaiting placement 06/09/24 - S/p bronchoscopy - removed copious secretions from L1-L10 06/09/24 - S/p right thoracentesis - 550 ml joycelyn fluid removed from right pleural space. 06/05/24 - S/p left thoracentesis on 950 mL's of joycelyn colored fluid removed from left pleural space. 06/03/24 - S/p bronchoscopy - cleared mucous plugging from L6-L10, L1-L5 and R1- R3 06/03/24 - S/p right thoracentesis - 1700 mL of serosanguineous fluid removed from R pleural space. S/p bronchoscopy w/ RML BAL on 05/28/24 - Cleared bloody secretions from L1-L10 and R1-R10 S/p cardioversion on 05/27/24 Labs and imaging reviewed. Rest of plan as noted below. Plan: s/p trach, on trach collar Room air. Off sedation Pressors if necessary for hemodynamic support. Titrate to keep MAP above 65 mmHg/SBP above 90 mmHg. Monitor chest tube output Monitor renal function due to Acute kidney injury. Monitor electrolytes. Supplement as necessary. Monitor ins and outs Maintain euvolemia Cardiology recommendations appreciated. Nutritional support. Accu-Cheks, ISS. GI/DVT prophylaxis. Prognosis: Poor given multiple comorbidities. Rest of plan per hospitalist and other consultants. Thank you Dr. Conn for allowing me to participate in this patient's care. Further recommendations will depend on patient's clinical course. Please do not hesitate to contact me if you have any questions or concerns. This medical document was created using an electronic medical record system with [employer] system. Although this document has been carefully reviewed, there may still be some phonetic and typographical errors. These areas are purely typographical due to imperfections of the software programs, and do not reflect any compromise in the patient's medical care. Dietary Evaluation Review Comments: 1. consider Renal Specific 70g protein restriction witn 2GNa, 3K, low Phos, if no diaylsis needed. 2. consider Renal Standard 2gn, 3K, low phosphate diet if Pt is on dialysis. 3. encourage and monitor po intake to meet 75% of his needs. Expected Outcomes/Goals: avoid uremic symptoms, gradual healed wounds. Plan discussed with: Patient, Other (RN Diane) BOGDAN MANN MD Jul 14, 2024 22:59
[2024-07-15] VITALS (26 sets, daily range): BP systolic 91–123; BP diastolic 38–55; PULSE 81–99; RESP 11–23; TEMP 98.3–99; O2SAT 93–100
--- NOTE | 2024-07-15 05:04 | DVH ---
EXAM: XR Chest, 1 View CLINICAL INDICATION: chest tubes TECHNIQUE: Frontal view of the chest. COMPARISON: XY CHEST PORTABLE on DOS: 07/13/24, XY CHEST PORTABLE on DOS: 07/12/24, XY CHEST XRAY 1 V IEW on DOS: 07/12/24, XY CHEST PORTABLE on DOS: 07/10/24, XY CHEST PORTABLE on DOS: 07/09/24 FINDINGS: LUNGS AND PLEURAL SPACES: Unremarkable. No consolidation. No pneumothorax. HEART: Unremarkable. No cardiomegaly. MEDIASTINUM: Unremarkable. Normal mediastinal contour. BONES/JOINTS: Unremarkable. No acute fracture. OTHER FINDINGS: . None. IMPRESSION: No acute cardiopulmonary process. Status post left-sided chest tube placement. Small lateral pneumothorax. Impression. Right-sided pigtail chest tube. Stable right-sided basilar pneumothorax. Impression. Right PICC Tracheostomy Mild congestive heart failure. Impression.
[2024-07-15 05:36] LABS: Basophils # (auto) 0.1 10 ^3/uL (0-0.2); Basophils % (auto) 1.3 % (0.0-2.0); Eosinophils # (auto) 0.1 10 ^3/uL (0-0.8); Eosinophils % (auto) 1.1 % (0.0-7.0); Hematocrit 29.3 % (41.0-53.0); Hemoglobin 9.2 g/dL (13.5-17.5); Lymphocytes # (auto) 1.9 10 ^3/uL (0.4-5.4); Lymphocytes % (auto) 16.5 % (10.0-50.0); Mean Corpuscular Hemoglobin 26.9 pg (28.0-32.0); Mean Corpuscular Hgb Conc. 31.3 g/dL (32.0-36.0); Mean Corpuscular Volume 85.8 fL (80.0-100.0); Monocytes # (auto) 1.1 10 ^3/uL (0-1.3); Monocytes % (auto) 9.3 % (0.0-12.0); Neutrophils # (auto) 8.2 10 ^3/uL (1.6-8.6); Neutrophils % (auto) 71.8 % (37.0-80.0); Nucleated Red Blood Cells % 0.1 %; Platelet Count (auto) 357 10^3/uL (140-450); Red Blood Cells 3.41 10^6/uL (4.5-5.90); White Blood Cell 11.3 10^3/uL (4.4-10.8)
[2024-07-15 05:37] LABS: Red Cell Distribution Width 20.1 % (11.8-14.3)
[2024-07-15 05:54] LABS: Alanine Aminotransferase 14 U/L (7-40); Anion Gap 5 (5-15); Aspartate Aminotransferase 21 U/L (13-40); BUN/Creatinine Ratio 30.2 (10.0-20.0); Blood Urea Nitrogen 16 mg/dL (9-23); Chloride 100 mmol/L (98-107); Glucose 92 mg/dL (74-106); Potassium 4.8 mmol/L (3.5-5.1); Sodium 137 mmol/L (136-145)
[2024-07-15 05:56] LABS: Albumin 2.2 g/dL (3.2-4.8); Alkaline Phosphatase 121 U/L (46-116); Bilirubin, Total 1.3 mg/dL (0.2-1.0); Calcium 8.5 mg/dL (8.7-10.4); Carbon Dioxide 32 mmol/L (20-31); Total Protein 5.2 g/dL (5.7-8.2)
--- NOTE | 2024-07-15 10:41 | DVHPNRES ---
Progress Note Date Seen: Jul 15, 2024 Resident Creating Document: JOSE FRANCISCO GAMINO RESIDENT Has the PT tested + for MRSA If YES, has PT been informed?: No Medical Necessity Reason Pt with a Central, PICC or Fol: No The following are medically ne: Central Line, Olsen Catheter Reason for olsen catheter: Strict I&O Objective vital signs Vital Sign Date Time Temp Pulse Resp B/P (MAP) Pulse Ox O2 Delivery O2 Flow Rate FiO2 07/15/24 09:00 99 22 95/50 (65) 93 07/15/24 08:00 Nasal Cannula* 1 24 07/15/24 08:00 98.5 98.5 Total Intake and Output 07/14/24 07/14/24 07/15/24 15:00 23:00 07:00 Intake Total 350 ml 340 ml Output Total 280 ml 500 ml 710 ml Balance -280 ml -150 ml -370 ml medications Current Medications Medications Dose Ordered Sig/Amy Route Start Time Stop Time Status Last Admin Dose Admin Potassium Chloride 100 ml @ 50 mls/hr Q2H IV 05/27/24 17:15 05/28/24 01:14 UNV Acetaminophen 650 mg Q6HP PRN PO 05/31/24 19:30 07/05/24 05:13 650 MG Potassium Chloride 100 ml @ 50 mls/hr Q2H IV 06/13/24 12:45 06/13/24 16:44 UNV Magnesium Sulfate/ Dextrose 100 ml @ 100 mls/hr Q1HR IV 06/13/24 13:00 06/13/24 14:59 UNV Cefepime HCl 50 ml @ 12.5 mls/hr Q8HR IV 06/13/24 14:00 UNV Sodium Chloride 10 ml QSHIFT@10,22 IV 06/17/24 22:00 07/15/24 08:33 10 ML Albuterol 2.5 mg Q6HR NEB 06/29/24 12:40 07/15/24 07:08 2.5 MG Ipratropium [place] 0.5 mg Q6HR NEB 06/29/24 12:41 07/15/24 07:08 0.5 MG Acetylcysteine 200 mg Q6HR NEB 06/29/24 12:41 07/15/24 07:08 200 MG Morphine Sulfate 2 mg Q4HPRN PRN IV 07/04/24 13:00 07/15/24 08:06 2 MG Alprazolam 0.25 mg TIDPRN PRN PO 07/05/24 14:00 07/13/24 21:30 0.25 MG Acetaminophen/ Hydrocodone Bitart 2 tab Q6HPRN PRN PO 07/09/24 12:15 UNV Acetaminophen/ Hydrocodone Bitart 1 tab Q6HPRN PRN PO 07/09/24 13:00 07/15/24 03:10 1 TAB Enteral Nutritional Formula 240 ml TIDWM PO 07/09/24 18:00 07/15/24 08:25 240 ML Furosemide 20 mg DAILY PO 07/10/24 10:00 07/15/24 08:33 20 MG Potassium Bicarbonate 25 meq DAILY PO 07/10/24 10:00 07/15/24 08:33 25 MEQ Examination General Appearance: Overall comfortable , overall weak but improved health. HEENT: Atraumatic Neck: Other (tracheostomy) healthy tracheostomy wound . Lungs: Other (MV sounds) improved Chest/Breasts: Other (one right-sided chest tube; and one left-sided chest tube leaking) Cardiovascular: Regular rate, Normal S1, Normal S2 Abdomen: Normal bowel sounds, Soft Genitourinary: Other (Olsen's out) Neuro: while patient is alert, conversant, able to respond to verbal and pain stimuli, week vocals gradually getting better. Psych/Mental Status: Alert, appropriate affect laboratory and microbiology Laboratory Tests 07/15/24 05:23 Test 07/15/24 05:23 Range/Units Serum Glucose 92 74-106 mg/dL Microbiology Date/Time Source Procedure Growth Status 06/29/24 18:08 Bronchial Washings Gram Stain - Final Complete 06/29/24 18:08 Respiratory Culture - Final Pseudomonas aeruginosa Complete 06/28/24 10:30 Chest Gram Stain - Final Complete 06/28/24 10:30 Chest Anaerobic Culture - Final Complete 06/28/24 10:30 Aerobic Culture - Final Pseudomonas aeruginosa Complete 06/25/24 14:45 Pleural Fluid Gram Stain - Final Complete 06/25/24 14:45 Body Fluid Culture - Final Pseudomonas aeruginosa Complete 06/25/24 06:40 Urine - Olsen Port Urine Culture - Final Yeast, not Radha albicans Complete 06/24/24 20:21 Blood Blood Culture - Final NO GROWTH AFTER 5 DAYS OF INCUBATION. Complete Labs and/or images reviewed: Labs reviewed by me, Image(s) reviewed by me Problem List/Assessment/Plan Problem List/Assessment/Plan ICU Course: A 63-year-old male with a history of heart failure with reduced ejection fraction 20%, severe mitral regurgitation, dilated aortic root of 4.9 cm, moderate pulmonary arterial hypertension, pulmonary embolism, congestive heart failure (CHF) and pulmonary embolism was intubated in the ICU. He developed necrotic pressure ulcers and multiorgan failure, large right pleural effusion, right heart strain, right pulmonary artery embolus, leading to a tracheostomy. A chest tube was placed, and a chest CT was performed. Due to low blood pressure, he required Levophed. Initially was on BiPAP, eventually needed intubation, status post trach, now on minimal vent settings. tolerating well x5 days. Patient is much more awake alert and conversant. Voice more stronger and patient passed swallow eval advanced diet from pureed to mechanical soft, added ensure t.i.d., started physical therapy and we will try to start right chest tube weaning trial. The patient has a cuffed size "8" Shiley tracheostomy tube and refused a Q2H turn, despite education on the risks of sacral wounds, but agreed to try again later. A chest X-ray shows bilateral chest tubes, small pneumothoraces, mild bibasilar opacities, and cardiomegaly. The patient is off pressors and hemodynamically stable, receiving TPN for nutrition, and requires monitoring of hemoglobin, renal function, electrolytes, and fluid balance. Nephrology and surgery recommendations are appreciated, interval improvement in chest left sided pneumo now apposed. Right chest in situ pigtail, noted. out put minimal. Main events: 06/09/24 - S/p bronchoscopy - removed copious secretions from L1-L10 06/09/24 - S/p right thoracentesis - 550 ml joycelyn fluid removed from right pleural space. 06/05/24 - S/p left thoracentesis on 950 mL's of joycelyn colored fluid removed from left pleural space. 06/03/24 - S/p bronchoscopy - cleared mucous plugging from L6-L10, L1-L5 and R1- R3 06/03/24 - S/p right thoracentesis - 1700 mL of serosanguineous fluid removed from R pleural space. S/p bronchoscopy w/ RML BAL on 05/28/24 - Cleared bloody secretions from L1-L10 and R1-R10 S/p cardioversion on 05/27/24 Hospitalization day: 58 A. Neurology: AAO x 4 conversant. #Acute metabolic/toxic encephalopathy in the setting of septic shock, improved. 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 B. Cardiology: # Acute on chronic systolic CHF exacerabation # heart failure with reduced ejection fraction: Ejection fraction of 20%: 2 g salt restriction, careful fluid management, GDMT started jardiance 10 mg daily as per EMPEROR-Reduced trial. BP softer for other Meds. # mild AV calcification # severe mitral regurgitation # dilated aortic root 4.9 cm, stable. # Atrial flutter, currently sinus rhythm: had sync cardioversion on 05/27/24 # Non-sustained Vtach, subsided keep the patient on telemetry, keep K+ >4 mg>2 C. Respiratory: #Acute hypoxic respiratory failure due to Pseudomonas aeruginosa pneumonia, pleural effusions, and pulmonary embolism: on [facility] vent, intubated on 05/26/24, reintubation on 06/12/24 due to ETT leak, extubated 06/26/24, tracheostomy tube placed 06/26/24, trach collar trials started on 07/02/2024: next day satisfactory, so will successful full day trach collar>>> we will try 24 hour trach, tolerating well, we will try to wait till the trach matures. #Septic shock due to Pseudomonas aeruginosa pneumonia: Status post IV antibiotics, recheck sputum/secretion from tracheostomy tube, to rule out any residual infection. #Pleural effusions s/p three chest tubes (two on the right; one on the left) right chest tube out, no changes in respiratory status. cxr unremarkable. CT chest satisfactory. Surgical team and pulmonology updated. Repeat CXR NO interval changes. #moderate pulmonary arterial hypertension #large right pulmonary artery embolus #right hydro pneumothorax with right chest tube in-situ. #Moderate left pleural effusion. 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 Olivas/surgery team on board, repeat CT chest shows subcutaneous emphysema no surgical intervention. #Large right pleural effusion: s/p multiple thoracentesis, pt has currently 2 chest tubes & last CT 06/16/24 shows Moderate right pleural fluid collection with near complete collapse of the right lower lobe chest tube in place within the collection. #Right lower lobe atelectasis, mildly improved #Multiple mucus plugs status post multiple bronchoscopies #Pneumonia, community acquired, gram +/-, possible superseded fungal infection: Micafungin for infection #pneumomediastinum, hemodynamically stable #Increased left pneumothorax despite the presence of a left chest tube: Continues to have air leak at -30 of air seal, patient is hemodynamically stable, still continues to have subcutaneous emphysema. No possible solution except surgical management when patient is able to undergo surgical decortication. #Left chest tube dislodgement: surgical consult to management as it was previously managed by Dr. Henry. repeat cxr tomorrow. further plan based on the findings. D. Gastrointestinal: # Transaminitis likely due to sepsis: Improving # Moderate colonic diverticulosis: Without signs of diverticulitis. # Cholelithiasis, without cholecystitis. # nutrition: Glucerna # constipation: On Colace # Swallow eval passed> nutrition started on oral pureed diet. aspiration precautions to continue> changed to mechanical soft diet. # nutrition: Pureed diet, cardiologic modification along with salt restriction, change to we will mechanical soft with high-protein diet, ensure t.i.d. # moderate malnutrition: Dietary consult, continue supplements. E. Genitourinary: Uncomplicated presumably, off of Olsen. F. Infectious Disease: # complicated UTI: urine culture reveals Pseudomonas and Enterococcus, appropriately on antibiotics asymptomatic presumably # shock, likely cardiogenic/septic: Negative for hepatitis-B, hepatitis-C, HIV, # Sacral Wound, Unchangeable: Status post wound debridement wound care to continue patient on -125 cc of wound VAC in past 24 hour approximately 200 mL of collection likely we will need long-term wound VAC support. Appreciate input of wound care team, q2 hours positions change. # respiratory Pseudomonas infection: Status post Zerbaxa pending repeat respiratory Pseudomonas culture to determine fate of further IV antibiotics. G. Hematology & Oncology: # anemia, normocytic, severe: s/p 1 unit of PRBC transfusion, H&H stable # coagulopathy likely due to sepsis, no active bleeding noted presumably. # thrombocytopenia: Improved H. Nephrology: renal function satisfactory: Urine output appropriate # Hypernatremia, corrected # Hyperkalemia, corrected # hypokalemia , Corrected # RADHA likely due to vasomotor nephropathy, improved monitor BMP closely # metabolic alkalosis with respiratory alkalosis, improved # hypophosphatemia, corrected I. Endocrine: # prediabetic with HbA1c of 6.1 J. MSK: # ICU myopathy: Low muscle mass extremely weak, we will need probably extensive physical therapy and support. Start aggressive in-hospital physiotherapy, PT consulted. Appreciate input. We will look for any further modification or discharge planning to LTAC. Fall precautions in place. Added Trapeze bar to beds to improve upper body functional status. K. Prophylaxis: PPI: Pantoprazole dc now DVT: SCDs L. Lines & Drains (with insertion date): PICC line 06/17/24 Left subclavian CVC line 06/05/24, removed 06/17/24 Right femoral A-line 06/03/24, discontinued 06/24/2024 Olsen catheter 05/21/24, removed. right Arterial line 06/26/23. removed. N. Disposition: Remains in [facility], Advance discharge planning with wound vac with social work started and discharge planning. Updated Fiance: Melissa Jones over phone. Advance placement planning for LTAC sent to [facility] and [facility]. Waiting for further confirmation of placement. Continue PT in the mean time. The plan was discussed with the ICU attending Dr. Chamberlain. The patient care consists of total 61 minutes of critical care time excluding the procedures. Dictated by Jose Francisco Gamino MD with 3M MModal Fluency. Plan discussed with: Patient, Other My Orders My Orders Orders - JOSE FRANCISCO GAMINO RESIDENT Procedure Category Date Status Time Chest Xray 1 View XY 07/15/24 Resulted 04:00 Dietary Evaluation Review Comments: 1. consider Renal Specific 70g protein restriction witn 2GNa, 3K, low Phos, if no diaylsis needed. 2. consider Renal Standard 2gn, 3K, low phosphate diet if Pt is on dialysis. 3. encourage and monitor po intake to meet 75% of his needs. Expected Outcomes/Goals: avoid uremic symptoms, gradual healed wounds. Laboratory Results Laboratory Tests 07/15/24 05:23 Chemistry Test 07/15/24 05:23 Albumin 2.2 g/dL (3.2-4.8) L Calcium Level 8.5 mg/dL (8.7-10.4) L Total Protein 5.2 g/dL (5.7-8.2) L LFT Test 07/15/24 05:23 Alanine Aminotransferase (ALT) 14 U/L (7-40) Alkaline Phosphatase 121 U/L (46-116) H Aspartate Amino Transferase (AST) 21 U/L (13-40) Total Bilirubin 1.3 mg/dL (0.2-1.0) H Urinalysis Test 05/19/24 10:08 07/10/24 15:28 Urine WBC 3 /hpf (0 - 3) Urine Color Light-yellow (Yellow) Urine Clarity Turbid (Clear) H Urine pH 5.0 (5.0-9.0) Urine Specific [place] 1.012 (1.001-1.035) Urine Protein Trace (Negative) H Urine Ketones Negative (Negative) Urine Blood Trace /uL (Negative) H Urine Nitrite Negative (Negative) Urine Bilirubin Negative (Negative) Urine Urobilinogen Normal mg/dL (Negative) Urine Leukocyte Esterase Negative /uL (Negative) Urine RBC None seen /hpf (0 - 3) Urine Microscopic WBC 2 /HPF (0-3) Urine Squamous Epithelial Cells None seen /hpf (<5) Urine Bacteria Few /hpf (None Seen) H Urine Hyaline Casts Few /lpf (0 - 2) Urine Mucus Few (None Seen) Urine Yeast (Budding) Loaded /hpf (None Seen) Urine Glucose 4+ mg/dL (Normal) H Microbiology Microbiology Date/Time Source Procedure Growth Status 06/29/24 18:08 Bronchial Washings Gram Stain - Final Complete 06/29/24 18:08 Respiratory Culture - Final Pseudomonas aeruginosa Complete 06/28/24 10:30 Chest Gram Stain - Final Complete 06/28/24 10:30 Chest Anaerobic Culture - Final Complete 06/28/24 10:30 Aerobic Culture - Final Pseudomonas aeruginosa Complete 06/25/24 14:45 Pleural Fluid Gram Stain - Final Complete 06/25/24 14:45 Body Fluid Culture - Final Pseudomonas aeruginosa Complete 06/25/24 06:40 Urine - Olsen Port Urine Culture - Final Yeast, not Radha albicans Complete 06/24/24 20:21 Blood Blood Culture - Final NO GROWTH AFTER 5 DAYS OF INCUBATION. Complete vital signs Vital Sign Date Time Temp Pulse Resp B/P (MAP) Pulse Ox O2 Delivery O2 Flow Rate FiO2 07/15/24 09:00 99 22 95/50 (65) 93 07/15/24 08:00 Nasal Cannula* 1 24 07/15/24 08:00 98.5 98.5 Total Intake and Output 07/14/24 07/14/24 07/15/24 15:00 23:00 07:00 Intake Total 350 ml 340 ml Output Total 280 ml 500 ml 710 ml Balance -280 ml -150 ml -370 ml medications Current Medications Medications Dose Ordered Sig/Amy Route Start Time Stop Time Status Last Admin Dose Admin Potassium Chloride 100 ml @ 50 mls/hr Q2H IV 05/27/24 17:15 05/28/24 01:14 UNV Acetaminophen 650 mg Q6HP PRN PO 05/31/24 19:30 07/05/24 05:13 650 MG Potassium Chloride 100 ml @ 50 mls/hr Q2H IV 06/13/24 12:45 06/13/24 16:44 UNV Magnesium Sulfate/ Dextrose 100 ml @ 100 mls/hr Q1HR IV 06/13/24 13:00 06/13/24 14:59 UNV Cefepime HCl 50 ml @ 12.5 mls/hr Q8HR IV 06/13/24 14:00 UNV Sodium Chloride 10 ml QSHIFT@10,22 IV 06/17/24 22:00 07/15/24 08:33 10 ML Albuterol 2.5 mg Q6HR NEB 06/29/24 12:40 07/15/24 07:08 2.5 MG Ipratropium [place] 0.5 mg Q6HR NEB 06/29/24 12:41 07/15/24 07:08 0.5 MG Acetylcysteine 200 mg Q6HR NEB 06/29/24 12:41 07/15/24 07:08 200 MG Morphine Sulfate 2 mg Q4HPRN PRN IV 07/04/24 13:00 07/15/24 08:06 2 MG Alprazolam 0.25 mg TIDPRN PRN PO 07/05/24 14:00 07/13/24 21:30 0.25 MG Acetaminophen/ Hydrocodone Bitart 2 tab Q6HPRN PRN PO 07/09/24 12:15 UNV Acetaminophen/ Hydrocodone Bitart 1 tab Q6HPRN PRN PO 07/09/24 13:00 07/15/24 03:10 1 TAB Enteral Nutritional Formula 240 ml TIDWM PO 07/09/24 18:00 07/15/24 08:25 240 ML Furosemide 20 mg DAILY PO 07/10/24 10:00 07/15/24 08:33 20 MG Potassium Bicarbonate 25 meq DAILY PO 07/10/24 10:00 07/15/24 08:33 25 MEQ laboratory and microbiology Laboratory Tests 07/15/24 05:23 Test 07/15/24 05:23 Range/Units Serum Glucose 92 74-106 mg/dL JOSE FRANCISCO GAMINO RESIDENT Jul 15, 2024 10:41
--- NOTE | 2024-07-15 12:26 | DVHPN2 ---
Progress Note - Dictate Date Seen: Jul 15, 2024 Has the PT tested + for MRSA If YES, has PT been informed?: No Medical Necessity Reason Pt with a Central, PICC or Fol: No The following are medically ne: Central Line, Olsen Catheter Reason for olsen catheter: Strict I&O Subjective PT WITH SS COMPLEX INCRESEING SOB HARVEY LE EDEMA HFrEF CHRONIC AND ACUTE NOW WITH HEMOPTYSIS TACHYCARDIA CTA LUNG C/W PE ACUTE vital signs Vital Sign Date Time Temp Pulse Resp B/P (MAP) Pulse Ox O2 Delivery O2 Flow Rate FiO2 07/15/24 12:00 88 07/15/24 12:00 16 95 Nasal Cannula* 1 24 07/15/24 12:00 99.0 96/43 (60) 99.0 Total Intake and Output 07/14/24 07/14/24 07/15/24 15:00 23:00 07:00 Intake Total 350 ml 340 ml Output Total 280 ml 500 ml 710 ml Balance -280 ml -150 ml -370 ml medications Current Medications Medications Dose Ordered Sig/Amy Route Start Time Stop Time Status Last Admin Dose Admin Potassium Chloride 100 ml @ 50 mls/hr Q2H IV 05/27/24 17:15 05/28/24 01:14 UNV Acetaminophen 650 mg Q6HP PRN PO 05/31/24 19:30 07/05/24 05:13 650 MG Potassium Chloride 100 ml @ 50 mls/hr Q2H IV 06/13/24 12:45 06/13/24 16:44 UNV Magnesium Sulfate/ Dextrose 100 ml @ 100 mls/hr Q1HR IV 06/13/24 13:00 06/13/24 14:59 UNV Cefepime HCl 50 ml @ 12.5 mls/hr Q8HR IV 06/13/24 14:00 UNV Sodium Chloride 10 ml QSHIFT@10,22 IV 06/17/24 22:00 07/15/24 08:33 10 ML Albuterol 2.5 mg Q6HR NEB 06/29/24 12:40 07/15/24 07:08 2.5 MG Ipratropium [place] 0.5 mg Q6HR NEB 06/29/24 12:41 07/15/24 07:08 0.5 MG Acetylcysteine 200 mg Q6HR NEB 06/29/24 12:41 07/15/24 07:08 200 MG Morphine Sulfate 2 mg Q4HPRN PRN IV 07/04/24 13:00 07/15/24 08:06 2 MG Alprazolam 0.25 mg TIDPRN PRN PO 07/05/24 14:00 07/13/24 21:30 0.25 MG Acetaminophen/ Hydrocodone Bitart 2 tab Q6HPRN PRN PO 07/09/24 12:15 UNV Acetaminophen/ Hydrocodone Bitart 1 tab Q6HPRN PRN PO 07/09/24 13:00 07/15/24 11:49 1 TAB Enteral Nutritional Formula 240 ml TIDWM PO 07/09/24 18:00 07/15/24 08:25 240 ML Furosemide 20 mg DAILY PO 07/10/24 10:00 07/15/24 08:33 20 MG Potassium Bicarbonate 25 meq DAILY PO 07/10/24 10:00 07/15/24 08:33 25 MEQ objective PUL DIFF RHONCHI JVD [place]GLE OF [place] JAW CV RR PMI DIFFUSE EXT 3+ EDEMA laboratory and microbiology Laboratory Tests 07/15/24 05:23 Test 07/15/24 05:23 Range/Units Serum Glucose 92 74-106 mg/dL Problem List SS COMPLEX INCRESEING SOB HARVEY LE EDEMA HFrEF CHRONIC AND ACUTE EF < 20% NOW WITH HEMOPTYSIS TACHYCARDIA CTA LUNG C/W PE 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 Large filling defect right pulmonary artery consistent with pulmonary embolus. No film findings of pulmonary artery hypertension. No pulmonary emboli noted on the left. 2. Findings are also suggestive of right heart strain. 3. Large right pleural effusion. HEPARIN DRIP\ LASIX DRIP WILL START ORAL ANTICOAGULATION IN 48 HOURS ABX LE ARTERIAL DOPPLER NO SIGNIFICANT DISEASE FOR LIMB RISK DC HEPARIN START ELIQUIS S/P CT HEAD CURRENTLY ON BiPAP IMPROVING RESP STATUS 7.32/59/69 TITRATE BIPAP THORACENTESIS ULTRASOUND GUIDED MRI OF ABD S/P THORACENTESIS 2200 CC DRAINED CXR BILATERAL INFILTRATE PROMINENT MEDIASTINUM CARDIOMEGALY HYPOKALEMIA BEING CORRECTED A FLUTTER S/P CARDIOVERSION SINUS RHYTHM TITRATE OFF LEVOPHED USE ALBUMIN FOR PRESSURE SPORT DC LASIX DRIP START D5 /4 NS AT 125 CC/HR BMP/ BNP DAILY cont volume replacement contraction alkalosis leukocytosis improved monitor h/h HYPERNATREMIA IMPROVING DIAMOX X 1 DOSE tracheostomy awake alert increase nutritional supplementy testosterone HYPERNATREMIA CORRECTED DC IV FLUID CONT TPN INCREASE VENT SETTING TO AC 22 EPISODE OF [place] CORRECT ACIDOSIS MAG SO4 2 G TITRATE OFF LEVOPHED DIAMOX TREAT METABOLIC ALKALOSIS RESP ACIDOSIS START TITRATING OFF SEDATION IMPROVED RESP PARAMETERS LIVER ENZYMES STILL ELEVATED wean off sedation CORRECT HYPERNATREMIA CHECK BNP AICD IMPLANTATION PT DEVELOPED PNEUMOTHORAX DELAYING EXTUBATION PNEUMOTHORAX IMPROVED LEUKOCYTOSIS AGAIN ELECTROLYTES BETTER NOW CXR CONSISTENT WITH CHF CORRECT K AND Mg CHANGE ABX VANCO AND AZTREONAM EPOGEN IRON DC ELIQUIS START LOVENOX WBC CONTINUES TO INCREASE NEEDS SURGICAL DEBRIDEMENT OF DECUB CXR WORSENING EFFUSION AND FLUID OVERLOAD START LASIX DRIP CXR CONSISTENT WITH MULTIFOCAL CONSOLIDATION EXCELLENT DIURESIS WITH LASIX DRIP MONITOR FLUID STATUS NEEDS DEBRIDEMENT OF DECUB WITH PERSISTENT LEUKOCYTOSIS CONSIDER BRONCHOSCOPY TO CLEAR CONSOLIDATION/ MUCUS CXR WORSENING LEFT SIDED EFFUSION/ INFILTRATE LEUKOCYTOSIS WORSENING DESPITE WOUND DEBRIDEMENT RECOMMEND BRONCHOSCOPY S/P DEBRIDEMENT OF STAGE IV DECUB WOUND POSITIVE FOR PSEUDOMONAS/ ENTEROCOCCUS URINE YEAST LEUKOCYTOSIS TRENDING DOWN CHECK CXR CHECK BNP CORRECT K PROGRESSIVE ANEMIA NEEDS ANTICOAGULATION FOR PE CONSIDER BRONCHOSCOPY WORSENING WBC IMPROVING WBC SEVERE ANEMIA START IRON WITH EPOGEN METABOLIC ALKALOSIS AGAIN DIAMOX CXR BETTER AERATION ON THE LEFT SIDED ONE DOSE OF IRON GIVEN ONE DOSE OF EPOGEN LEUKOCYTOSIS IMPROVING CHECK UA DIAMOX FOR WORSENING METABOLIC ALKALOSIS DECREASE REP RATE FOR RESP ALKALOSIS IRON STUDY FROM 06/21/24 LOW SERUM IRON LOW TIBC FERRITIN HIGH SECONDARY TO BEING ACUTE PHASE REACTANT S/P TRACHEOSTOMY NOW PT REQUIRES 2 UNITS OF PRBC CHECK UA CBC IN AM BNP IN AM ABG PT AWAKE STILL WITH PNEUMOTHORAX ABG BETTER DC PEEP TRANSFUSE PRBC EPOGEN AND IRON UA TODAY MONITOR Mg SULFATE 2 MG/IV UA NEGATIVE POGRESSIVE ANEMIA ANEMIA OF CHRONIC ILLNESS CHECK RETIC EPOGEN TESTOSTERONE Dietary Evaluation Review Comments: 1. consider Renal Specific 70g protein restriction witn 2GNa, 3K, low Phos, if no diaylsis needed. 2. consider Renal Standard 2gn, 3K, low phosphate diet if Pt is on dialysis. 3. encourage and monitor po intake to meet 75% of his needs. Expected Outcomes/Goals: avoid uremic symptoms, gradual healed wounds. Plan discussed with: Patient, Spouse Critical Care Time(min): 35 ISSAC SHAH MD Jul 15, 2024 12:26
--- NOTE | 2024-07-15 16:51 | DVHDSRES ---
Discharge Summary Date of Admission Resident Creating Document: BRENNON GAMINO RESIDENT May 18, 2024 at 23:22 Date of Discharge: Jul 15, 2024 Admitting Diagnosis Sepsis and respiratory distress Wounds: sacral wound. Labs/Diagnostic Data: Laboratory Results Test 07/15/24 05:23 07/11/24 04:53 07/10/24 15:28 07/10/24 05:00 White Blood Count 11.3 10^3/uL (4.4-10.8) Red Blood Count 3.41 10^6/uL (4.5-5.90) Hemoglobin 9.2 g/dL (13.5-17.5) Hematocrit 29.3 % (41.0-53.0) Mean Corpuscular Volume 85.8 fL (80.0-100.0) Mean Corpuscular Hemoglobin 26.9 pg (28.0-32.0) Mean Corpuscular Hemoglobin Concent 31.3 g/dL (32.0-36.0) Red Cell Distribution Width 20.1 % (11.8-14.3) Platelet Count 357 10^3/uL (140-450) Mean Platelet Volume 7.2 fL (6.9-10.8) Neutrophils (%) (Auto) 71.8 % (37.0-80.0) Lymphocytes (%) (Auto) 16.5 % (10.0-50.0) Monocytes (%) (Auto) 9.3 % (0.0-12.0) Eosinophils (%) (Auto) 1.1 % (0.0-7.0) Basophils (%) (Auto) 1.3 % (0.0-2.0) Neutrophils # (Auto) 8.2 10 ^3/uL (1.6-8.6) Lymphocytes # (Auto) 1.9 10 ^3/uL (0.4-5.4) Monocytes # (Auto) 1.1 10 ^3/uL (0-1.3) Eosinophils # (Auto) 0.1 10 ^3/uL (0-0.8) Basophils # (Auto) 0.1 10 ^3/uL (0-0.2) Nucleated Red Blood Cells 0.1 % Sodium Level 137 mmol/L (136-145) Potassium Level 4.8 mmol/L (3.5-5.1) Chloride Level 100 mmol/L (98-107) Carbon Dioxide Level 32 mmol/L (20-31) Anion Gap 5 (5-15) Blood Urea Nitrogen 16 mg/dL (9-23) Creatinine 0.53 mg/dL (0.700-1.30) Glomerular Filtration Rate Calc 112 mL/min (>90) BUN/Creatinine Ratio 30.2 (10.0-20.0) Serum Glucose 92 mg/dL (74-106) Calcium Level 8.5 mg/dL (8.7-10.4) Total Bilirubin 1.3 mg/dL (0.2-1.0) Aspartate Amino Transferase (AST) 21 U/L (13-40) Alanine Aminotransferase (ALT) 14 U/L (7-40) Alkaline Phosphatase 121 U/L (46-116) Total Protein 5.2 g/dL (5.7-8.2) Albumin 2.2 g/dL (3.2-4.8) Magnesium Level 2.0 mg/dL (1.6-2.6) Urine Color Light-yellow (Yellow) Urine Clarity Turbid (Clear) Urine pH 5.0 (5.0-9.0) Urine Specific [place] 1.012 (1.001-1.035) Urine Protein Trace (Negative) Urine Ketones Negative (Negative) Urine Blood Trace /uL (Negative) Urine Nitrite Negative (Negative) Urine Bilirubin Negative (Negative) Urine Urobilinogen Normal mg/dL (Negative) Urine Leukocyte Esterase Negative /uL (Negative) Urine RBC None seen /hpf (0 - 3) Urine Microscopic WBC 2 /HPF (0-3) Urine Squamous Epithelial Cells None seen /hpf (<5) Urine Bacteria Few /hpf (None Seen) Urine Hyaline Casts Few /lpf (0 - 2) Urine Mucus Few (None Seen) Urine Yeast (Budding) Loaded /hpf (None Seen) Urine Glucose 4+ mg/dL (Normal) Phosphorus Level 1.8 mg/dL (2.4-5.1) Test 07/07/24 18:00 07/03/24 07:43 07/02/24 04:50 07/01/24 05:27 POC Glucose 83 mg/dl (70-106) Blood Gas Specimen Type Arterial Blood Gas Sample Site Right radial Blood Gas Patient Temperature 37.0 Arterial Blood Date Drawn [id number] Arterial Blood pH 7.473 (7.350-7.450) Arterial Blood Partial Pressure CO2 31.6 mmHg (35.0-48.0) Arterial Blood Partial Pressure O2 104.3 mmHg (83.0-108.0) Arterial Blood HCO3 22.6 mmol/L (21.0-28.0) Arterial Blood Oxygen Saturation 97.1 % (94.0-98.0) Arterial Blood Base Excess -0.6 mmol/L (-2.0-3.0) Arterial Blood Oxyhemoglobin 96.0 % (94.0-98.0) Arterial Blood Carboxyhemoglobin 0.6 % (0.5-1.5) Arterial Blood Methemoglobin 0.5 % (0.0-1.5) Mark Test Modified Blood Gas Total Hemoglobin 8.50 g/dL (13.5-17.5) Blood Gas Set Respiration Rate 14.0 Blood Gas Modality Vent - ac FiO2 % 30.0 Blood Gas Tidal Volume 450.0 Blood Gas PEEP or CPAP 5.0 B-Type Natriuretic Peptide 582.72 pg/mL (0-100) Gentamicin Level Trough 6.9 ug/mL (0.5-1.5) Test 06/30/24 08:41 06/29/24 10:34 06/28/24 08:03 06/25/24 14:45 Blood Gas Critical Value Read Back Yes Blood Gas Notified Whom Carly akins md Blood Gas Notified Time [id number] Blood Gas Notified By Crew Leader/Control Room Operator t elijah Prothrombin Time 12.1 sec (9.3-11.8) Prothrombin Time INR 1.16 (0.9-1.15) Activated Partial Thromboplast Time 33.4 SEC (24.5-34.5) Blood Gas Spontaneous Rate 23 Body Fluid Source Pleural fluid Body Fluid pH 9.0 Body Fluid WBC (Manual) 38037 CUMM (0-200) Body Fluid RBC (Manual) 709889 CUMM (0-2000) Body Fluid Mononuclear Cells 4 % Body Fluid Polymorphonuclear Cells 96 % (0-25) Body Fluid Glucose 36 mg/dL (.) Body Fluid Total Protein 4.6 g/dL (.) Body Fluid Lactate Dehydrogenase 3163 IU/L (.) Test 06/25/24 04:38 06/21/24 16:09 06/21/24 04:40 06/20/24 06:04 Differential Total Cells Counted 100.0 (100) Neutrophils % (Manual) 86 (37.0-80.0) Band Neutrophils % (Manual) 0 Lymphocytes % (Manual) 12 (10.0-50.0) Monocytes % (Manual) 2 (0-12) Eosinophils % (Manual) 0 (0-7) Basophils % (Manual) 0 (0.0-2.0) Metamyelocytes % (manual) 0 Myelocytes % (Manual) 0 Promyelocytes % (Manual) 0 Blast Cells % (Manual) 0 Reactive Lymphocytes 0 Platelet Estimate Adequate Reticulocyte Count (auto) 4.18 % (0.5-1.5) Iron Level 42 ug/dL (65-175) Total Iron Binding Capacity 148 ug/dL (250-425) Percent Iron Saturation 28.4 % (20-55) Ferritin 1561.9 ng/mL (22-322) Vitamin B12 Level 1626 pg/mL (211-911) Folic Acid 5.24 ng/mL (>5.38) Lactate Dehydrogenase 296 U/L (120-246) Hepatitis B Surface Antigen Negative (Negative) Hepatitis C Antibody Negative (Negative) HIV (1&2) Antibody Negative (Negative) Test 06/19/24 04:40 06/18/24 05:01 06/16/24 18:26 06/10/24 15:15 Anisocytosis (manual) Slight Triglycerides Level 120 mg/dL (< 150) Vancomycin Level Trough 28.3 ug/mL (5-10) Bl Gas Inspiratory/Expiratory Ratio 1:3.5 Specimen Drawn By Sam chaudhary rn Lactic Acid Level 1.0 mmol/L (0.4-2.0) Test 06/08/24 18:38 06/08/24 10:33 06/07/24 11:30 05/24/24 13:10 Digoxin Level 0.23 ng/mL (0.8-2) Blood Gas Spontaneous Tidal Volume 514 Blood Gas Inspiratory Pressure 19.0 Blood Gas Pressure Support 10 Blood Gas EPAP 5 Blood Gas IPAP 14 Test 05/24/24 07:24 05/24/24 06:55 05/19/24 10:08 Blood Gas Liter Flow 5.00 Ammonia 22 umol/L (11-32) Urine WBC 3 /hpf (0 - 3) Other Laboratory Tests 07/15/24 05:23 Brief Hx & Hospital Course: ICU Course: A 63-year-old male with a history of heart failure with reduced ejection fraction 20%, severe mitral regurgitation, dilated aortic root of 4.9 cm, moderate pulmonary arterial hypertension, pulmonary embolism, congestive heart failure (CHF) and pulmonary embolism was intubated in the ICU. He developed necrotic pressure ulcers and multiorgan failure, large right pleural effusion, right heart strain, right pulmonary artery embolus, leading to a tracheostomy. A chest tube was placed, and a chest CT was performed. Due to low blood pressure, he required Levophed. Initially was on BiPAP, eventually needed intubation, status post trach, now on minimal vent settings. tolerating well x5 days. Patient is much more awake alert and conversant. Voice more stronger and patient passed swallow eval advanced diet from pureed to mechanical soft, added ensure t.i.d., started physical therapy and we will try to start right chest tube weaning trial. The patient has a cuffed size "8" Shiley tracheostomy tube and refused a Q2H turn, despite education on the risks of sacral wounds, but agreed to try again later. A chest X-ray shows bilateral chest tubes, small pneumothoraces, mild bibasilar opacities, and cardiomegaly. The patient is off pressors and hemodynamically stable, receiving TPN for nutrition, and requires monitoring of hemoglobin, renal function, electrolytes, and fluid balance. Nephrology and surgery recommendations are appreciated, interval improvement in chest left sided pneumo now apposed. Right chest in situ pigtail, noted. out put minimal. Hospitalization day 58 patient was discharged to LTAC at [facility]. Dr. Cathi Muller accepted the patient, a peer to peer report was given. Main events: 06/09/24 - S/p bronchoscopy - removed copious secretions from L1-L10 06/09/24 - S/p right thoracentesis - 550 ml joycelyn fluid removed from right pleural space. 06/05/24 - S/p left thoracentesis on 950 mL's of joycelyn colored fluid removed from left pleural space. 06/03/24 - S/p bronchoscopy - cleared mucous plugging from L6-L10, L1-L5 and R1- R3 06/03/24 - S/p right thoracentesis - 1700 mL of serosanguineous fluid removed from R pleural space. S/p bronchoscopy w/ RML BAL on 05/28/24 - Cleared bloody secretions from L1-L10 and R1-R10 S/p cardio[facility] on 05/27/24 [facility], intubated on 05/26/24, -reintubation on 06/12/24 due to ETT leak, -extubated 06/26/24, -tracheostomy tube placed 06/26/24, -trach collar trials started on 07/02/2024 -on speech valve since 07/12/2024, in room air. Medical conditions treated in hospital: # Acute metabolic/toxic encephalopathy in the setting of septic shock, improved. # Sedation for mechanical ventilation versed, fentanyl off now. 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 # Acute on chronic systolic CHF exacerabation # heart failure with reduced ejection fraction: Ejection fraction of 20%. # mild AV calcification # severe mitral regurgitation # dilated aortic root 4.9 cm, stable. # Atrial flutter, currently sinus rhythm: had syncronized cardioversion on 05/27/24 # Non-sustained Vtach, subsided keep the patient on telemetry, keep K+ >4 mg>2. # Acute hypoxic respiratory failure due to Pseudomonas aeruginosa pneumonia, pleural effusions, and pulmonary embolism # Septic shock due to Pseudomonas aeruginosa pneumonia: Status post IV antibiotics. # Pleural effusions s/p three chest tubes. # moderate pulmonary arterial hypertension # large right pulmonary artery embolus # right hydro pneumothorax with right chest tube in-situ. # Moderate left pleural effusion. 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 # Large right pleural effusion: s/p multiple thoracentesis, pt has currently 2 chest tubes & last CT 06/16/24 shows Moderate right pleural fluid collection with near complete collapse of the right lower lobe chest tube in place within the collection. # Right lower lobe atelectasis, mildly improved # Multiple mucus plugs status post multiple bronchoscopies # Pneumonia, community acquired, gram +/-, possible superseded fungal infection: s/p Micafungin for infection # pneumomediastinum, hemodynamically stable # Increased left pneumothorax despite the presence of a left chest tube pending surgical decortication # Left chest tube dislodgement, fixed. # Transaminitis likely due to sepsis: Improved # Moderate colonic diverticulosis: Without signs of diverticulitis. # Cholelithiasis, without cholecystitis. # Tube feed nutrition: Glucerna, now on mechanical soft diet. # Constipation: On Colace # Swallow eval passed> nutrition started on oral pureed diet. aspiration precautions to continue> changed to mechanical soft diet. # moderate malnutrition: Dietary consult, continue supplements. # complicated UTI: urine culture reveals Pseudomonas and Enterococcus, appropriately on antibiotics asymptomatic presumably s/p antibiotics. # shock, likely cardiogenic/septic: Negative for hepatitis-B, hepatitis-C, HIV. # Sacral Wound, Unchangeable: on wound VAC in past 24 hour approximately 200 mL of collection likely we will need long-term wound VAC support. Appreciate input of wound care team, q2 hours positions change. # respiratory Pseudomonas infection: Status post Zerbaxa pending repeat respiratory Pseudomonas culture to determine fate of further IV antibiotics. # anemia, normocytic, severe: s/p PRBC transfusion, H&H stable # coagulopathy likely due to sepsis, no active bleeding noted presumably # thrombocytopenia: Improved # Hypernatremia, corrected # Hyperkalemia, corrected # hypokalemia , Corrected # RADHA likely due to vasomotor nephropathy, improved monitor BMP closely # metabolic alkalosis with respiratory alkalosis, improved # hypophosphatemia, corrected # prediabetic with HbA1c of 6.1 # ICU myopathy continue PT to LTAC. Fall precautions in place. Discharge planning needed 47 minutes of detailed discussion. Patient, family and care team agreeable. Discharge to LTAC this PM [facility] via transport. Patient is hemodynamically stable to be transported to LTAC for further care. Consults/Reason for consult Surgery Pulmonary Cardiology Nephro Critical Care Operations or Procedures [place] [id number] Ph: [phone] DIAGNOSTIC IMAGING Diagnostic Imaging Report : [id number] Signed PATIENT: JOMAR GOFF ACCT: [id number] UNIT: [id number] : 1960 LOC: ICU CENTRL ROOM / BED: 0263 / A AGE / SEX: 64 / M ADM STATUS: ADM IN SERVICE 0400 ORDERING PHYSICIAN: BRENNON GAMINO RESIDENT PROCEDURE(s): CXR1 - CHEST XRAY 1 VIEW REASON: chest tubes ORDER NUMBER(s): [id number], ACCESSION NUMBER(s): [id number] EXAM: XR Chest, 1 View CLINICAL INDICATION: chest tubes TECHNIQUE: Frontal view of the chest. COMPARISON: XY CHEST PORTABLE on DOS: 07/13/24, XY CHEST PORTABLE on DOS: 07/12/24, XY CHEST XRAY 1 VIEW on DOS: 07/12/24, XY CHEST PORTABLE on DOS: 07/10/24, XY CHEST PORTABLE on DOS: 07/09/24 FINDINGS: LUNGS AND PLEURAL SPACES: Unremarkable. No consolidation. No pneumothorax. HEART: Unremarkable. No cardiomegaly. MEDIASTINUM: Unremarkable. Normal mediastinal contour. BONES/JOINTS: Unremarkable. No acute fracture. OTHER FINDINGS: . None. IMPRESSION: No acute cardiopulmonary process. Status post left-sided chest tube placement. Small lateral pneumothorax. Impression. Right-sided pigtail chest tube. Stable right-sided basilar pneumothorax. Impression. Right PICC Tracheostomy Mild congestive heart failure. Impression. ATED BY: JOANA CRAIG MD DICTATED DATE/TIME: 07/15/24500 SIGNED BY: JOANA CRAIG MD SIGNED DATE/TIME: 07/15/24 050 CC: [place] [address] Ph: [phone] DIAGNOSTIC IMAGING Diagnostic Imaging Report : [id number] Signed PATIENT: JOMAR GOFF ACCT: [id number] UNIT: [id number] : 1960 LOC: ICU CENTRL ROOM / BED: [address] [place] [address] AGE / SEX: 64 / M ADM STATUS: ADM IN SERVICE 6 ORDERING PHYSICIAN: BRENNON GAMINO RESIDENT PROCEDURE(s): CX2CT - CHEST WITHOUT CONTRAST REASON: LEFT CHEST TUBE DISLODGEMENT ORDER NUMBER(s): [id number], ACCESSION NUMBER(s): [id number] CLINICAL INFORMATION: 64 years old, Male; LEFT CHEST TUBE DISLODGEMENT. TECHNIQUE: Axial CT imaging of the chest was performed without IV contrast. Sagittal and coronal reformatted images were made, stored and reviewed. Evaluation is limited without IV contrast. One or more of the following dose reduction techniques were used: Automated exposure control. Adjustment of mA and/or kV according to patient size. CTDIvol = 13.17 mGy DLP = 541.72 mGy-cm COMPARISON: CT CHEST WITH CONTRAST on DOS: 07/01/24, CT CHEST WITHOUT CONTRAST on DOS: 06/27/24, US CHEST ULTRASOUND on DOS: 06/25/24. Radiographs dated 07/05/2024. FINDINGS: Left chest tube extends into the left lateral pleural space and extends adjacent to the posterior aspect of the left upper lobe. There is a moderate left hydropneumothorax, predominantly pneumothorax, minimally changed in overall size compared to the prior CT chest. There is a small to moderate amount of gas in the anterolateral aspect of the left chest wall adjacent to the site of insertion of the chest tube, decreased in size. There is a small right hydro pneumothorax with pleural catheter in place along the lateral aspect of the right lung and coursing adjacent to the posterior aspect of the right upper lobe. The right hydro pneumothorax has decreased in size. There is volume loss in both lungs due to the pneumothoraces. Patchy airspace opacities in the posterior aspect of the right lung overlying the hydro pneumothorax also noted. Tracheostomy tube in place. Enteric tube reaches the stomach. No other significant interval changes seen. Partially visualized multiple small gallstones in the gallbladder. Nodular contour of the liver suggesting cirrhosis. Partially visualized mesenteric edema and ascites in the upper abdomen. Diffuse body wall edema / anasarca also noted. Right PICC extends to the SVC/ RA junction. IMPRESSION: 1. Bilateral chest tubes remain in place, as detailed above. Minimal change in overall size of the left hydro pneumothorax. Right hydropneumothorax as decreased compared to the prior exam. 2. Additional findings as detailed above. ATED BY: DARIAN WEISS DO DICTATED DATE/TIME: 07/06/24933 SIGNED BY: DARIAN WEISS DO SIGNED DATE/TIME: 07/06/24933 CC: [address] [id number] Ph: [phone] DIAGNOSTIC IMAGING Diagnostic Imaging Report : [id number] Signed PATIENT: JOMAR GOFF ACCT: [id number] UNIT: [id number] : 1960 LOC: ICU CENTRL ROOM / BED: [facility] / A AGE / SEX: 64 / M ADM STATUS: ADM IN SERVICE 1626 ORDERING PHYSICIAN: FARIDA HOLT PROCEDURE(s): CHSTU - CHEST ULTRASOUND REASON: FLUID CHECK ORDER NUMBER(s): [id number], ACCESSION NUMBER(s): [id number] Bilateral Chest Sonogram Clinical history: FLUID CHECK Technique: Limited sonographic evaluation of the right and left chest was performed. Findings/Impression: Trace to small bilateral pleural effusions. Right pleural fluid appears complex with multiple septations. ATED BY: ALEXSANDER FERNANDEZ MD DICTATED DATE/TIME: 06/24/241717 SIGNED BY: ALEXSANDER FERNANDEZ MD SIGNED DATE/TIME: 06/24/241717 CC: [place] [address] Ph: [phone] DIAGNOSTIC IMAGING Diagnostic Imaging Report : [id number] Signed PATIENT: JOMAR GOFF ACCT: [id number] UNIT: [id number] : 1960 LOC: ICU CENTRL ROOM / BED: [facility] / A AGE / SEX: 63 / M ADM STATUS: ADM IN SERVICE 1027 ORDERING PHYSICIAN: FARIDA HOLT PROCEDURE(s): KUB - KUB ABDOMEN SINGLE VIEW REASON: abd distension ORDER NUMBER(s): [id number], ACCESSION NUMBER(s): [id number] Date: 06/18/2024 10:36 AM Examination: XY KUB ABDOMEN SINGLE VIEW History: abd distension Comparison: None TECHNIQUE: Frontal views of the abdomen was obtained. FINDINGS: Bowel gas pattern is unremarkable. NG tube in stomach. The lung bases are unremarkable. No acute osseous abnormality identified. IMPRESSION: Nonobstructive bowel gas pattern. large stool burden ATED BY: EVERT SANCHES MD DICTATED DATE/TIME: 06/18/24 1101 SIGNED BY: EVERT SANCHES MD SIGNED DATE/TIME: 06/18/24 1101 CC: [place] [address] Ph: [phone] DIAGNOSTIC IMAGING Diagnostic Imaging Report : [id number] Signed PATIENT: JOMAR GOFF ACCT: [id number] UNIT: [id number] : 1960 LOC: [facility] ROOM / BED: [address] [place] [address] AGE / SEX: 63 / M ADM STATUS: ADM IN SERVICE 1840 ORDERING PHYSICIAN: BOGDAN MANN MD PROCEDURE(s): USGUIVASAC - US Guided Vascular Access REASON: PICC LINE PLACEMENT ORDER NUMBER(s): [id number], ACCESSION NUMBER(s): [id number] Exam: US US GUIDED VASCULAR ACCESS Clinical History: PICC LINE PLACEMENT Comparison: None Findings: Targeted sonographic evaluation of the upper extremity veinwas obtained utilizing grayscale and color Doppler imaging. IMPRESSION: Sonographic assistance for central line placement. Please refer to procedural report for detailed findings. ATED BY: ALEXSANDER FERNANDEZ MD DICTATED DATE/TIME: 06/19/24 050 SIGNED BY: ALEXSANDER FERNANDEZ MD SIGNED DATE/TIME: 06/19/24 050 CC: [place] [address] Ph: [phone] DIAGNOSTIC IMAGING Diagnostic Imaging Report : [id number] Signed PATIENT: JOMAR GOFF ACCT: [id number] UNIT: [id number] : 1960 LOC: [facility] ROOM / BED: [facility] / AGE / SEX: 63 / M ADM STATUS: ADM IN SERVICE 0632 ORDERING PHYSICIAN: ISSAC SHAH MD PROCEDURE(s): HWOCT - HEAD WITHOUT CONTRAST REASON: ALOC ORDER NUMBER(s): [id number], ACCESSION NUMBER(s): [id number] CLINICAL INFORMATION: 63 years old, Male; loss of consciousness. TECHNIQUE: Axial imaging was obtained through the brain without contrast. Coronal and sagittal reformatted images were obtained, reviewed, and stored. Images were reviewed in brain and bone windows. All CT scans at this medical facility are performed using dose modulation techniques as appropriate to a performed exam including the following: Automated exposure control was utilized; adjustment of the MA and/or KV according to patient size; and use of iterative reconstruction technique. CTDIvol = 48.3 mGy DLP = 933.22 mGy-cm COMPARISON: None FINDINGS: There is no acute intracranial hemorrhage or extraaxial fluid collection. No mass effect or midline shift. There is a moderate sized focal area of hypoattenuation in the left frontoparietal region, likely encephalomalacia from prior infarct, with chronic appearance scattered areas of hypoattenuation are seen in the periventricular and subcortical white matter, which are nonspecific but most likely sequelae of small vessel ischemic disease.The ventricles and sulci are within normal limits in size for age. Basal cisterns are patent. The calvarium is unremarkable. Paranasal sinuses and mastoid air cells are clear. IMPRESSION: 1. No CT evidence of acute intracranial abnormality. 2. 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, 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, likely chronic. Correlate with clinical findings. 3. Additional nonacute findings as described above. ATED BY: DARIAN WEISS DO DICTATED DATE/TIME: 05/24/24715 SIGNED BY: DARIAN WEISS DO SIGNED DATE/TIME: 05/24/24715 CC: [place] [address] Ph: [phone] DIAGNOSTIC IMAGING Diagnostic Imaging Report : [id number] Signed PATIENT: JOMAR GOFF ACCT: [id number] UNIT: [id number] : 1960 LOC: ICU CENTR ROOM / BED: [facility] / A AGE / SEX: 63 / M ADM STATUS: ADM IN SERVICE 9 ORDERING PHYSICIAN: BOGDAN MANN MD PROCEDURE(s): CX2CT - CHEST WITHOUT CONTRAST REASON: PNEOMOTHORAX ORDER NUMBER(s): [id number], ACCESSION NUMBER(s): [id number] CLINICAL INFORMATION: 63 years old, Male; PNEOMOTHORAX. TECHNIQUE: Axial CT imaging of the chest was performed without IV contrast. Sagittal and coronal reformatted images were made, stored and reviewed. Evaluation is limited without IV contrast. One or more of the following dose reduction techniques were used: Automated exposure control. Adjustment of mA and/or kV according to patient size. CTDIvol = 16.17 mGy DLP = 621.19 mGy-cm COMPARISON: Chest radiograph dated 126 FINDINGS: Motion limited study. Aorta: Ectatic ascending aorta measuring up to 4 cm in diameter, although suboptimally evaluated due to artifact. Cardiac: Mild moderate cardiomegaly. Mediastinum/charla: Endotracheal tube terminates above the level of the fredo. Enteric tube reaches the stomach. Trace pneumomediastinum. Lungs: There is a right chest tube in place with moderate right pleural fluid collection with near complete collapse of the right lower lobe. There is also a or anteriorly positioned right pleural catheter, partially within the anterior right pneumothorax and coursing along the lateral aspect of the right upper lung. Moderate pneumothorax along the anterior aspect of the right lung. Small left anterior pneumothorax. And moderate left pleural fluid collection with associated collapse of the left lower lobe. Pulmonary arteries: No gross abnormality. Chest wall: Small amount of subcutaneous emphysema adjacent to the more anteriorly positioned right pleural catheter in the right anterior chest wall. There is diffuse body wall edema / anasarca. Upper abdomen: Nodular contour of the liver, may be seen with cirrhosis. Partially visualized abdominal ascites. Exophytic cyst at the posterior aspect of the right kidney. Bones: No fracture or suspicious intraosseous lesions. IMPRESSION: 1. Motion limited study. 2. Moderate right anterior pneumothorax with right pleural catheter partially within the pneumothorax as described above. 3. Moderate right pleural fluid collection with near complete collapse of the right lower lobe chest tube in place within the collection. 4. Small left anterior pneumothorax. 5. Moderate left pleural fluid collection with complete collapse of the left lower lobe. 6. Small amount of pneumomediastinum, may be tracking from the bilateral pneumothoraces. 7. Endotracheal tube and enteric tube in place. 8. Ectatic ascending aorta. 9. Additional findings as detailed above. Critical Findings: Bilateral pneumothorax, pleural fluid collections, and lobar collapse indicate urgent medical attention. Findings discussed with the nurse taking care of the patient in the ICU by Dr. Weiss by phone at 06/16/2024 at 11:48 a.m. [employer], who acknowledged receipt and understanding of the findings and will notify the ordering physician, who was unavailable at the time. ATED BY: DARIAN WEISS DO DICTATED DATE/TIME: 06/16/24951 SIGNED BY: DARIAN WEISS DO SIGNED DATE/TIME: 06/16/24951 CC: Condition at Discharge: Guarded Final Diagnosis/Problems List necrotic sacral wound tissue left trapped lung. Discharge Disposition: Acute Care Facility Discharge Instruct/Medications Diet: Cardiac 2g Na,low cholest Diet comment: as tolerated consistancy on mechanical soft presently. Activity: No Restrictions, As Tolerated Follow Up/Referral: PCP cardiology pulmonology surgery Medications: as per MAR Discharge Statement: "Patient was advised to return to the ER or call 911 if any headaches, dizziness, shortness of breath, chest pain, abdominal pain, bleeding, fevers, or worsening of medical condition. Patient was counseled about treatment plan, medications, possible side effects, patientverbalized understanding. All questions were answered to the best of my ability. This discharge took greater then 30 minutes in planning, reviewing documentation, counseling the patient, and discussing with other team members." ASSESSMENT ASSESSMENT Assessment necrotic sacral wound tissue BRENNON GAMINO RESIDENT Jul 15, 2024 16:51
--- NOTE | 2024-07-16 15:41 | DVHPN2 ---
Progress Note - Dictate Date Seen: Jul 13, 2024 Has the PT tested + for MRSA If YES, has PT been informed?: No Medical Necessity Reason Pt with a Central, PICC or Fol: No The following are medically ne: Central Line, Olsen Catheter Reason for olsen catheter: Strict I&O Subjective PT WITH SS COMPLEX INCRESEING SOB HARVEY LE EDEMA HFrEF CHRONIC AND ACUTE NOW WITH HEMOPTYSIS TACHYCARDIA CTA LUNG C/W PE ACUTE vital signs Vital Sign Date Time Temp Pulse Resp B/P (MAP) Pulse Ox O2 Delivery O2 Flow Rate FiO2 07/15/24 20:00 98.4 94/52 (66) 98.4 07/15/24 20:00 12 97 Nasal Cannula* 1 24 07/15/24 20:00 94 Total Intake and Output 07/15/24 07/15/24 07/16/24 15:00 23:00 07:00 Intake Total 1163 ml Output Total 1125 ml Balance 38 ml medications Current Medications Medications Dose Ordered Sig/Amy Route Start Time Stop Time Status Last Admin Dose Admin Potassium Chloride 100 ml @ 50 mls/hr Q2H IV 05/27/24 17:15 05/28/24 01:14 UNV Potassium Chloride 100 ml @ 50 mls/hr Q2H IV 06/13/24 12:45 06/13/24 16:44 UNV Magnesium Sulfate/ Dextrose 100 ml @ 100 mls/hr Q1HR IV 06/13/24 13:00 06/13/24 14:59 UNV Cefepime HCl 50 ml @ 12.5 mls/hr Q8HR IV 06/13/24 14:00 UNV Acetaminophen/ Hydrocodone Bitart 2 tab Q6HPRN PRN PO 07/09/24 12:15 UNV objective PUL DIFF RHONCHI JVD ANGLE OF THE JAW CV RR PMI DIFFUSE EXT 3+ EDEMA laboratory and microbiology Laboratory Tests 07/15/24 05:23 Test 07/15/24 05:23 Range/Units Serum Glucose 92 74-106 mg/dL Problem List SS COMPLEX INCRESEING SOB HARVEY LE EDEMA HFrEF CHRONIC AND ACUTE EF < 20% NOW WITH HEMOPTYSIS TACHYCARDIA CTA LUNG C/W PE 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 Large filling defect right pulmonary artery consistent with pulmonary embolus. No film findings of pulmonary artery hypertension. No pulmonary emboli noted on the left. 2. Findings are also suggestive of right heart strain. 3. Large right pleural effusion. HEPARIN DRIP\ LASIX DRIP WILL START ORAL ANTICOAGULATION IN 48 HOURS ABX LE ARTERIAL DOPPLER NO SIGNIFICANT DISEASE FOR LIMB RISK DC HEPARIN START ELIQUIS S/P CT HEAD CURRENTLY ON BiPAP IMPROVING RESP STATUS 7.32/59/69 TITRATE BIPAP THORACENTESIS ULTRASOUND GUIDED MRI OF ABD S/P THORACENTESIS 2200 CC DRAINED CXR BILATERAL INFILTRATE PROMINENT MEDIASTINUM CARDIOMEGALY HYPOKALEMIA BEING CORRECTED A FLUTTER S/P CARDIOVERSION SINUS RHYTHM TITRATE OFF LEVOPHED USE ALBUMIN FOR PRESSURE SPORT DC LASIX DRIP START D5 1/4 NS AT 125 CC/HR BMP/ BNP DAILY cont volume replacement contraction alkalosis leukocytosis improved monitor h/h HYPERNATREMIA IMPROVING DIAMOX X 1 DOSE tracheostomy awake alert increase nutritional supplementy testosterone HYPERNATREMIA CORRECTED DC IV FLUID CONT TPN INCREASE VENT SETTING TO AC 22 EPISODE OF [place] CORRECT ACIDOSIS MAG SO4 2 G TITRATE OFF LEVOPHED DIAMOX TREAT METABOLIC ALKALOSIS RESP ACIDOSIS START TITRATING OFF SEDATION IMPROVED RESP PARAMETERS LIVER ENZYMES STILL ELEVATED wean off sedation CORRECT HYPERNATREMIA CHECK BNP AICD IMPLANTATION PT DEVELOPED PNEUMOTHORAX DELAYING EXTUBATION PNEUMOTHORAX IMPROVED LEUKOCYTOSIS AGAIN ELECTROLYTES BETTER NOW CXR CONSISTENT WITH CHF CORRECT K AND Mg CHANGE ABX VANCO AND AZTREONAM EPOGEN IRON DC ELIQUIS START LOVENOX WBC CONTINUES TO INCREASE NEEDS SURGICAL DEBRIDEMENT OF DECUB CXR WORSENING EFFUSION AND FLUID OVERLOAD START LASIX DRIP CXR CONSISTENT WITH MULTIFOCAL CONSOLIDATION EXCELLENT DIURESIS WITH LASIX DRIP MONITOR FLUID STATUS NEEDS DEBRIDEMENT OF DECUB WITH PERSISTENT LEUKOCYTOSIS CONSIDER BRONCHOSCOPY TO CLEAR CONSOLIDATION/ MUCUS CXR WORSENING LEFT SIDED EFFUSION/ INFILTRATE LEUKOCYTOSIS WORSENING DESPITE WOUND DEBRIDEMENT RECOMMEND BRONCHOSCOPY S/P DEBRIDEMENT OF STAGE IV DECUB WOUND POSITIVE FOR PSEUDOMONAS/ ENTEROCOCCUS URINE YEAST LEUKOCYTOSIS TRENDING DOWN CHECK CXR CHECK BNP CORRECT K PROGRESSIVE ANEMIA NEEDS ANTICOAGULATION FOR PE CONSIDER BRONCHOSCOPY WORSENING WBC IMPROVING WBC SEVERE ANEMIA START IRON WITH EPOGEN METABOLIC ALKALOSIS AGAIN DIAMOX CXR BETTER AERATION ON THE LEFT SIDED ONE DOSE OF IRON GIVEN ONE DOSE OF EPOGEN LEUKOCYTOSIS IMPROVING CHECK UA DIAMOX FOR WORSENING METABOLIC ALKALOSIS DECREASE REP RATE FOR RESP ALKALOSIS IRON STUDY FROM 06/21/24 LOW SERUM IRON LOW TIBC FERRITIN HIGH SECONDARY TO BEING ACUTE PHASE REACTANT S/P TRACHEOSTOMY NOW PT REQUIRES 2 UNITS OF PRBC CHECK UA CBC IN AM BNP IN AM ABG PT AWAKE STILL WITH PNEUMOTHORAX ABG BETTER DC PEEP TRANSFUSE PRBC EPOGEN AND IRON UA TODAY MONITOR Mg SULFATE 2 MG/IV UA NEGATIVE POGRESSIVE ANEMIA ANEMIA OF CHRONIC ILLNESS CHECK RETIC EPOGEN TESTOSTERONE Dietary Evaluation Review Comments: 1. consider Renal Specific 70g protein restriction witn 2GNa, 3K, low Phos, if no diaylsis needed. 2. consider Renal Standard 2gn, 3K, low phosphate diet if Pt is on dialysis. 3. encourage and monitor po intake to meet 75% of his needs. Expected Outcomes/Goals: avoid uremic symptoms, gradual healed wounds. Plan discussed with: Patient ISSAC SHAH MD Jul 16, 2024 15:41
== END 2024-07-15 20:10 | DRG 4 ==
LOC: TELE-WESTW 23:22 → CATH ICU 05-26 18:48 → ICU CENTRL 05-28 15:29
PROVIDERS: ADMIT Internal Medicine; ATTEND Surgery Vascular Surgery
PROC: 5A09357 Assistance with Respiratory Ventilation, Less than 24 Consecutive Hours, Continuous Positive Airway Pressure (ICD-10-PCS; 2024-05-24)
PROC: 5A09357 Assistance with Respiratory Ventilation, Less than 24 Consecutive Hours, Continuous Positive Airway Pressure (ICD-10-PCS; 2024-05-25)
PROC: 5A1955Z Respiratory Ventilation, Greater than 96 Consecutive Hours (ICD-10-PCS; principal; 2024-05-26)
PROC: 0BH17EZ Insertion of Endotracheal Airway into Trachea, Via Natural or Artificial Opening (ICD-10-PCS; 2024-05-26)
PROC: 0W993ZZ Drainage of Right Pleural Cavity, Percutaneous Approach (ICD-10-PCS; 2024-05-26)
PROC: 02HV33Z Insertion of Infusion Device into Superior Vena Cava, Percutaneous Approach (ICD-10-PCS; 2024-05-26)
PROC: B548ZZA Ultrasonography of Superior Vena Cava, Guidance (ICD-10-PCS; 2024-05-26)
PROC: 03HY32Z Insertion of Monitoring Device into Upper Artery, Percutaneous Approach (ICD-10-PCS; 2024-05-26)
PROC: 0B9B8ZZ Drainage of Left Lower Lobe Bronchus, Via Natural or Artificial Opening Endoscopic (ICD-10-PCS; 2024-05-26)
PROC: 0B968ZZ Drainage of Right Lower Lobe Bronchus, Via Natural or Artificial Opening Endoscopic (ICD-10-PCS; 2024-05-26)
PROC: 0BC78ZZ Extirpation of Matter from Left Main Bronchus, Via Natural or Artificial Opening Endoscopic (ICD-10-PCS; 2024-05-26)
PROC: 0BC38ZZ Extirpation of Matter from Right Main Bronchus, Via Natural or Artificial Opening Endoscopic (ICD-10-PCS; 2024-05-26)
PROC: 5A2204Z Restoration of Cardiac Rhythm, Single (ICD-10-PCS; 2024-05-27)
PROC: 0BC78ZZ Extirpation of Matter from Left Main Bronchus, Via Natural or Artificial Opening Endoscopic (ICD-10-PCS; 2024-05-28)
PROC: 0BC38ZZ Extirpation of Matter from Right Main Bronchus, Via Natural or Artificial Opening Endoscopic (ICD-10-PCS; 2024-05-28)
PROC: 04HY32Z Insertion of Monitoring Device into Lower Artery, Percutaneous Approach (ICD-10-PCS; 2024-06-03)
PROC: 0W993ZZ Drainage of Right Pleural Cavity, Percutaneous Approach (ICD-10-PCS; 2024-06-03)
PROC: 0B9B8ZZ Drainage of Left Lower Lobe Bronchus, Via Natural or Artificial Opening Endoscopic (ICD-10-PCS; 2024-06-03)
PROC: 0BC78ZZ Extirpation of Matter from Left Main Bronchus, Via Natural or Artificial Opening Endoscopic (ICD-10-PCS; 2024-06-03)
PROC: 0BC38ZZ Extirpation of Matter from Right Main Bronchus, Via Natural or Artificial Opening Endoscopic (ICD-10-PCS; 2024-06-03)
PROC: 0W9B3ZZ Drainage of Left Pleural Cavity, Percutaneous Approach (ICD-10-PCS; 2024-06-05)
PROC: 0BC78ZZ Extirpation of Matter from Left Main Bronchus, Via Natural or Artificial Opening Endoscopic (ICD-10-PCS; 2024-06-09)
PROC: 0B9H8ZX Drainage of Lung Lingula, Via Natural or Artificial Opening Endoscopic, Diagnostic (ICD-10-PCS; 2024-06-09)
PROC: 0W993ZZ Drainage of Right Pleural Cavity, Percutaneous Approach (ICD-10-PCS; 2024-06-09)
PROC: 0W9930Z Drainage of Right Pleural Cavity with Drainage Device, Percutaneous Approach (ICD-10-PCS; 2024-06-11)
PROC: 0BH17EZ Insertion of Endotracheal Airway into Trachea, Via Natural or Artificial Opening (ICD-10-PCS; 2024-06-12)
PROC: 5A1955Z Respiratory Ventilation, Greater than 96 Consecutive Hours (ICD-10-PCS; 2024-06-12)
PROC: 02HV33Z Insertion of Infusion Device into Superior Vena Cava, Percutaneous Approach (ICD-10-PCS; 2024-06-17)
PROC: B548ZZA Ultrasonography of Superior Vena Cava, Guidance (ICD-10-PCS; 2024-06-17)
PROC: 0JB70ZZ Excision of Back Subcutaneous Tissue and Fascia, Open Approach (ICD-10-PCS; 2024-06-19)
PROC: 30233N1 Transfusion of Nonautologous Red Blood Cells into Peripheral Vein, Percutaneous Approach (ICD-10-PCS; 2024-06-21)
PROC: 0W9B3ZZ Drainage of Left Pleural Cavity, Percutaneous Approach (ICD-10-PCS; 2024-06-25)
PROC: 0B110F4 Bypass Trachea to Cutaneous with Tracheostomy Device, Open Approach (ICD-10-PCS; 2024-06-26)
PROC: 0BBL0ZZ Excision of Left Lung, Open Approach (ICD-10-PCS; 2024-06-28)
PROC: 0BNL0ZZ Release Left Lung, Open Approach (ICD-10-PCS; 2024-06-28)
PROC: 0W9B00Z Drainage of Left Pleural Cavity with Drainage Device, Open Approach (ICD-10-PCS; 2024-06-28)
PROC: 0B9D8ZX Drainage of Right Middle Lung Lobe, Via Natural or Artificial Opening Endoscopic, Diagnostic (ICD-10-PCS; 2024-06-29)
PROC: 0BC78ZZ Extirpation of Matter from Left Main Bronchus, Via Natural or Artificial Opening Endoscopic (ICD-10-PCS; 2024-06-29)
PROC: 0BC38ZZ Extirpation of Matter from Right Main Bronchus, Via Natural or Artificial Opening Endoscopic (ICD-10-PCS; 2024-06-29)
DX: A41.52 Sepsis due to Pseudomonas (principal); N17.0 Acute kidney failure with tubular necrosis; R65.21 Severe sepsis with septic shock; I26.99 Other pulmonary embolism without acute cor pulmonale; J86.9 Pyothorax without fistula; G92.8 Other toxic encephalopathy; J15.1 Pneumonia due to Pseudomonas; L89.150 Pressure ulcer of sacral region, unstageable; I50.23 Acute on chronic systolic (congestive) heart failure; E87.0 Hyperosmolality and hypernatremia; J96.01 Acute respiratory failure with hypoxia; D68.59 Other primary thrombophilia; E83.39 Other disorders of phosphorus metabolism; E87.3 Alkalosis; I77.810 Thoracic aortic ectasia; E66.9 Obesity, unspecified; Z68.30 Body mass index [BMI] 30.0-30.9, adult; B95.61 Methicillin susceptible Staphylococcus aureus infection as the cause of diseases classified elsewhere; E86.9 Volume depletion, unspecified; E87.4 Mixed disorder of acid-base balance; D64.9 Anemia, unspecified; E87.5 Hyperkalemia; D69.6 Thrombocytopenia, unspecified; J98.2 Interstitial emphysema; I27.21 Secondary pulmonary arterial hypertension; E87.6 Hypokalemia; K59.00 Constipation, unspecified; I11.0 Hypertensive heart disease with heart failure; J15.9 Unspecified bacterial pneumonia; I77.819 Aortic ectasia, unspecified site; R74.01 Elevation of levels of liver transaminase levels; I47.20 Ventricular tachycardia, unspecified; I48.92 Unspecified atrial flutter; K57.30 Diverticulosis of large intestine without perforation or abscess without bleeding; K80.20 Calculus of gallbladder without cholecystitis without obstruction; N39.0 Urinary tract infection, site not specified; Z99.11 Dependence on respirator [ventilator] status; I34.0 Nonrheumatic mitral (valve) insufficiency; Z79.899 Other long term (current) drug therapy; Z79.2 Long term (current) use of antibiotics; Z86.73 Personal history of transient ischemic attack (TIA), and cerebral infarction without residual deficits; Z86.711 Personal history of pulmonary embolism; Z79.84 Long term (current) use of oral hypoglycemic drugs; Z68.29 Body mass index [BMI] 29.0-29.9, adult
CPT/HCPCS: 36415; 36569; 36600; 70450; 71045; 71250; 71260; 71275; 74018; 74183; 76604; 76937; 76942; 80048; 80053; 80162; 80170; 80202; 81001; 82140; 82607; 82728; 82746; 82805; 82962; 83540; 83550; 83605; 83615; 83735; 83880; 83986; 84100; 84132; 84478; 85007; 85014; 85018; 85025; 85027; 85045; 85610; 85730; 86703; 86803; 86850; 86900; 86901; 86920; 87040; 87070; 87075; 87077; 87081; 87086; 87088; 87186; 87205; 87340; 89051; 92507; 92610; 93005; 93925; 93970; 94002; 94003; 94640; 94660; 97110; 97163; 97530; G0378; J0330; J1071; J1756; J1815; J2185; J2248; J2470; J2543; J3480; J3490; J7060; J7131; P9047